=== PATIENT | male | born 1950 | race Caucasian/White ===

== ENCOUNTER 2016-11-16 12:54 | Inpatient (IN) | payer MEDICARE, OTHER ==
[~2016-11-16] VITALS: Ht 165.1 cm; Wt 84.0 kg
[2016-11-16 13:24] LABS: ADD SCAN DIFF NO
[2016-11-16 13:29] LABS: BASOPHILS % 0.2 % (0.0-2.0); EOSINOPHILS # 0.2 10^3/ul (0.0-0.5); EOSINOPHILS % 4.1 % (0.0-7.0); HEMATOCRIT 43.4 % (42.0-52.0); HEMOGLOBIN 15.2 g/dl (14.0-18.0); LYMPHOCYTES # 1.1 10^3/ul (0.8-2.9); LYMPHOCYTES % 24.6 % (15.0-51.0); MEAN CORPUSCULAR HEMOGLOBIN 32.1 pg (29.0-33.0); MEAN CORPUSCULAR VOLUME 91.8 fl (82.0-101.0); MONOCYTE # 0.4 10^3/ul (0.3-0.9); MONOCYTES % 7.8 % (0.0-11.0); NEUTROPHIL # 2.9 10^3/ul (1.6-7.5); NEUTROPHILS % 62.9 % (39.0-77.0); PLATELET COUNT 106 10^3/UL (140-415); RED BLOOD COUNT 4.73 10^6/ul (4.70-6.10); RED CELL DISTRIBUTION WIDTH 13.8 % (11.5-14.5); WHITE BLOOD COUNT 4.6 10^3/ul (4.8-10.8)
[2016-11-16 13:42] LABS: ALBUMIN 3.9 g/dl (3.3-4.9); CHLORIDE 94 mmol/L (97-110); POTASSIUM 4.1 mmol/L (3.5-5.1); SODIUM 130 mmol/L (135-144)
[2016-11-16 13:43] LABS: PARTIAL THROMBOPLASTIN TIME 25.1 Sec (25.0-35.0)
[2016-11-16 13:44] LABS: CREATININE 2.49 mg/dl (0.61-1.24)
[2016-11-16 13:45] LABS: ALANINE AMINOTRANSFERASE 28 IU/L (13-69); ALBUMIN/GLOBULIN RATIO 1.21; ALKALINE PHOSPHATASE 161 IU/L (42-121); ANION GAP 16 (8-16); ASPARTATE AMINO TRANSFERASE 14 IU/L (15-46); BILIRUBIN,INDIRECT 0.7 mg/dl (0-1.1); BILIRUBIN,TOTAL 0.7 mg/dl (0.2-1.3); BLOOD UREA NITROGEN 54 mg/dl (7-20); CARBON DIOXIDE 24 mmol/L (21-31); TOTAL PROTEIN 7.1 g/dl (6.1-8.1)
[2016-11-16 13:46] LABS: CALCIUM 9.7 mg/dl (8.4-10.2)
[2016-11-16 13:47] LABS: INR 1.23; PROTIME 15.6 Sec (12.2-14.2); PT RATIO 1.2
[2016-11-16 13:58] LABS: GLUCOSE 916 mg/dl (70-220); TROPONIN-I < 0.012 ng/ml (0.00-0.12)
[2016-11-16] MEDS ORDERED: SOD CHLORIDE 0.9% 1,000 ML IV STA (14:04)
[2016-11-16] MEDS ORDERED: INSULIN LISPRO 100 UNIT/ML VIAL SC STA (14:04)
--- NOTE | 2016-11-16 14:19 | ERA ---
ER Documentation Chief Complaint Date/Time DATE: 11/16/16 TIME: 14:19 Chief Complaint expressive aphasia x 2days worse over the last 30min HPI History is limited due to the patient's clinical condition and cognitive impairment. 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 Patient complains of a 5 day history of waxing and waning worsening right-sided weakness and difficulty speaking. Staff members told paramedics that he is not speaking normally. Patient denies any headache or visual changes. No neck or back pain. No chest pain or palpitations. No shortness of breath or cough. Denies abdominal pain, nausea vomiting. No dysuria or polyuria. No fevers or chills. ROS All systems reviewed and are negative except as per history of present illness. Medications Home Meds Reported Medications Quetiapine Fumarate* (Quetiapine Fumarate*) 200 Mg Tablet, 200 MG PO HS, TAB 11/16/16 Omeprazole* (Omeprazole*) 20 Mg Capsule.dr, 20 MG PO DAILY, #30 CAP 11/16/16 Levetiracetam* (Keppra*) 500 Mg Tablet, 500 MG PO BID, TAB 11/16/16 Carvedilol* (Carvedilol*) 6.25 Mg Tablet, 6.25 MG PO BID, #60 TAB 11/16/16 Levetiracetam* (Keppra*) 500 Mg Tablet, 500 MG PO BID, TAB 11/16/16 Niacin* (Niacin*) 500 Mg Tablet, 500 MG PO BID, TAB 11/16/16 Zolpidem Tartrate* (Zolpidem Tartrate*) 5 Mg Tablet, 5 MG PO QHS Y for INSOMNIA , #30 TAB 11/16/16 Glipizide* (Glipizide*) 10 Mg Tablet, 10 MG PO BID, TAB 11/16/16 Discontinued Reported Medications Carvedilol* (Carvedilol*) 12.5 Mg Tablet, 12.5 MG PO BID, #60 TAB 11/16/16 Allergies Allergies: Coded Allergies: No Known Allergy (Unverified , 11/16/16) PMhx/Soc Reviewed in chart. As per HPI. Medical and Surgical Hx: Unable to obtain History of Surgery: Yes (Craniotomy) Anesthesia Reaction: No Hx Neurological Disorder: Yes (CVA) Hx Respiratory Disorders: No Hx Cardiac Disorders: Yes (Hypertension) Hx Psychiatric Problems: No Hx Miscellaneous Medical Probl: Yes (GERD, diabetes mellitus type 2) Hx Alcohol Use: Yes Hx Substance Use: No Hx Tobacco Use: No Smoking Status: Never smoker FmHx Unknown. Physical Exam Vitals Vital Signs Date Time Temp Pulse Resp B/P Pulse Ox O2 Delivery O2 Flow Rate FiO2 11/16/16 13:15 Nasal Cannula 2 11/16/16 12:58 98.1 86 20 121/85 94 Physical Exam Const: Alert, no acute distress Head: Atraumatic Eyes: Normal Conjunctiva ENT: Normal External Ears, Nose and Mouth. Neck: Full range of motion..~ No meningismus. Resp: Clear to auscultation bilaterally Cardio: Regular rate and rhythm, no murmurs Abd: Soft, non tender, non distended. Normal bowel sounds Skin: No petechiae or rashes Back: No midline or flank tenderness Ext: No cyanosis, or edema Neur: Awake and alert. Mild right facial droop. Tongue deviates to the right. Right upper extremity strength 4/5, right lower extremity strength 4/5. Mild slurred speech with expressive aphasia. Psych: Normal Mood and Affect Result Diagram: 11/16/16 1315 11/16/16 1315 Results 24 hrs Laboratory Tests Test 11/16/16 13:15 11/16/16 13:20 11/16/16 14:44 White Blood Count 4.610^3/ul Red Blood Count 4.7310^6/ul Hemoglobin 15.2g/dl Hematocrit 43.4% Mean Corpuscular Volume 91.8fl Mean Corpuscular Hemoglobin 32.1pg Mean Corpuscular Hemoglobin Concent 35.0g/dl Red Cell Distribution Width 13.8% Platelet Count 71290^3/UL Mean Platelet Volume 10.0fl Neutrophils % 62.9% Lymphocytes % 24.6% Monocytes % 7.8% Eosinophils % 4.1% Basophils % 0.2% Nucleated Red Blood Cells % 0.0/100WBC Neutrophils # 2.910^3/ul Lymphocytes # 1.110^3/ul Monocytes # 0.410^3/ul Eosinophils # 0.210^3/ul Basophils # 0.010^3/ul Nucleated Red Blood Cells # 0.010^3/ul Prothrombin Time 15.6Sec Prothrombin Time Ratio 1.2 INR International Normalized Ratio 1.23 Activated Partial Thromboplast Time 25.1Sec Sodium Level 130mmol/L Potassium Level 4.1mmol/L Chloride Level 94mmol/L Carbon Dioxide Level 24mmol/L Anion Gap 16 Blood Urea Nitrogen 54mg/dl Creatinine 2.49mg/dl Glucose Level 916mg/dl Hemoglobin A1c 10.2% Calcium Level 9.7mg/dl Total Bilirubin 0.7mg/dl Direct Bilirubin 0.00mg/dl Indirect Bilirubin 0.7mg/dl Aspartate Amino Transf (AST/SGOT) 14IU/L Alanine Aminotransferase (ALT/SGPT) 28IU/L Alkaline Phosphatase 161IU/L Troponin I < 0.012ng/ml Total Protein 7.1g/dl Albumin 3.9g/dl Globulin 3.20g/dl Albumin/Globulin Ratio 1.21 Bedside Glucose > 595mg/dL > 595mg/dL Current Medications Medications (Trade) Dose Ordered Sig/Steve Route PRN Reason Start Time Stop Time Status Last Admin Dose Admin Sodium Chloride (NS) 1,000 ml @ 1,000 mls/hr Q1H STAT IV 11/16/16 14:04 11/16/16 15:03 11/16/16 14:36 Insulin Human Lispro (Humalog) 10 unit ONCE STAT SC 11/16/16 14:04 11/16/16 14:21 DC Miscellaneous Information (* Miscellaneous Pharmacy Order) Discontinue all previ... PROTOCOL ONCE XX 11/16/16 14:30 11/16/16 14:31 DC Diagnostic Test (Pha) 1 ea 1 ea Q1H XX 11/16/16 14:30 Insulin Human Regular/Sodium Chloride (Novolin-R/NS) 100 ml @ 0 mls/hr PER PROTOCOL IV 11/16/16 14:30 Miscellaneous Information (* Miscellaneous Pharmacy Order) Treatment of Hypoglycemia: 1.BG 51... Per protocol XX 11/16/16 14:30 Dextrose (D50w Syringe) 25 ml Q15M PRN IV Till BS 80 mg/dL or above x2 11/16/16 14:30 Dextrose (D50w Syringe) 50 ml Q15M PRN IV Till BS 80 mg/dL or above x2 11/16/16 14:30 PROCEDURE: Noncontrast CT Head. CLINICAL INDICATION: Stroke. TECHNIQUE: Noncontrast CT of the head was obtained. The administered radiation dose was CTDI vol = 44.68 mGy, DLP = 720.23 mGy-cm. One or more of the following dose reduction techniques were used: Automated exposure control, Adjustment of the mA and/or kV according to patient size, or Use of iterative reconstruction technique. COMPARISON: There are no similar studies submitted for comparison. FINDINGS: Evaluation is mildly limited due to motion degradation. There is a left frontal pterional craniotomy. There is a 4 mm left frontal subdural fluid collection with dural thickening which is likely postoperative. There is mild generalized cerebral volume loss. There is mild cerebellar volume loss. There is left inferior as well as lateral frontal encephalomalacia with subcortical gliosis as well as involves the left anterior insula. There is no acute intracranial hemorrhage. There is no loss of devine-white differentiation to suggest acute territorial infarction. There is no mass effect. No midline shift is identified. The orbits are within normal limits. The paranasal sinuses are well aerated. No destructive osseous lesion is identified. IMPRESSION: Evaluation is mildly limited due to motion degradation. 1. No acute intracranial hemorrhage. 2. Mild cerebral and mild cerebellar volume loss. 3. Left frontal pterional craniotomy with left dural thickening. There is a 4 mm left frontal subdural fluid collection which is likely postoperative. 4. Left inferior frontal and left lateral frontal encephalomalacia involving the left anterior insula. Further findings as detailed above. RPTAT: AA .Abdirahman Moser MD, Date Time Electronically viewed and signed by .Abdirahman Moser MD, on 11/16/2016 14:42 .F/ PROCEDURE: Chest x-ray CLINICAL INDICATION: Stroke TECHNIQUE: Chest single view COMPARISON: None FINDINGS: The heart is normal in size. The pulmonary vessels are normal in caliber. The lungs are clear. The costophrenic angles are sharp. The visualized bony thorax is unremarkable. IMPRESSION: No acute cardiopulmonary disease. RPTAT: HH .Ryder Sharp MD, MD Date Time Electronically viewed and signed by .Ryder Sharp MD, MD on 11/16/2016 14:22 .W/ EKG: TIME: 13:23. Sinus rhythm. Ventricular rate 81. Normal VT and QRS. Nonspecific ST-T wave changes. No ectopy. EP Interpretation: Abnormal EKG. 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 Patient complains of a 5 day history of waxing and waning worsening right-sided weakness and difficulty speaking. Patient with critical hyperglycemia and hyperosmolar nonketotic state. No acidosis, anion gap or other signs of diabetic ketoacidosis. CT reveals no acute bleed or infarct of the lives no old CT for comparison. Counseled [patient and family] regarding diagnosis, diagnostic results and plan for admission. CALLS/CONSULTS: Time 14:24, Dr. Maya, Recommends Admission to ICU. PATIENT CARE TRANSITIONED: Time: 14:25, Dr. Maya. CRITICAL CARE TIME: Due to the high probability of sudden clinically significant hemodynamic, cardiovascular, neurologic and endocrinologic deterioration, this patient with hyperglycemia and HONK required multiple, frequent reevaluations of vital signs and response to therapy. Additional critical care time was spent in review of skilled nurse facility records and consultation with the admitting physician Dr. Maya. TOTAL CRITICAL CARE TIME: 35 minutes not including other separately reportable procedures. Departure Diagnosis: Primary Impression: Hyperglycemia due to type 2 diabetes mellitus Qualified Code: E11.65 - Type 2 diabetes mellitus with hyperglycemia, without long-term current use of insulin Additional Impressions: Hyperosmolar non-ketotic state in patient with type 2 diabetes mellitus Acute renal insufficiency Essential hypertension History of craniotomy History of CVA with residual deficit Condition: Critical ANTONIO VIGIL MD Nov 16, 2016 14:19
--- NOTE | 2016-11-16 14:22 | RADRPT ---
PROCEDURE: Chest x-ray CLINICAL INDICATION: Stroke TECHNIQUE: Chest single view COMPARISON: None FINDINGS: The heart is normal in size. The pulmonary vessels are normal in caliber. The lungs are clear. Th e costophrenic angles are sharp. The visualized bony thorax is unremarkable. IMPRESSION: No acute cardiopulmonary disease. RPTAT: HH .Ryder Sharp MD, MD Date Time Electronically viewed and signed by .Ryder Sharp MD, MD on 11/16/2016 14:22 .W/
[2016-11-16] MEDS ORDERED: GLIP-95 PO (14:25)
[2016-11-16] MEDS ORDERED: ZOLP5TAB7 PO (14:26)
[2016-11-16] MEDS ORDERED: LEVE-5 PO ×2 (14:27→14:28)
[2016-11-16] MEDS ORDERED: CARV12.579 PO (14:27)
[2016-11-16] MEDS ORDERED: NIAC500T81 PO (14:27)
[2016-11-16] MEDS ORDERED: CARV6.2579 PO (14:28)
[2016-11-16] MEDS ORDERED: OMEP20CA16 PO (14:28)
[2016-11-16] MEDS ORDERED: INSULIN HUMAN REGULAR 100 UNIT in SOD CHLORIDE 0.9% 99 ML IV SCH ×3 (14:30→21:00)
[2016-11-16] MEDS ORDERED: DEXTROSE 50% 50 ML SYRINGE IV PRN ×2 (14:30)
[2016-11-16] MEDS ORDERED: QUET200T27 PO (14:33)
--- NOTE | 2016-11-16 14:43 | RADRPT ---
PROCEDURE: Noncontrast CT Head. CLINICAL INDICATION: Stroke. TECHNIQUE: Noncontrast CT of the head was obtained. The administered radiation dose was CTDI vol = 44.68 mGy, DLP = 720.23 mGy-cm. One or more of the following dose reduction techniques were used: Au tomated exposure control, Adjustment of the mA and/or kV according to patient size, or Use of iterat hong reconstruction technique. COMPARISON: There are no similar studies submitted for comparison. FINDINGS: Evaluation is mildly limited due to motion degradation. There is a left frontal pterional craniotomy. There is a 4 mm left frontal subdural fluid collection with dural thickening which is likely postoperative. There is mild generalized cerebral volume loss. There is mild cerebellar volume loss. There is left inferior as well as lateral frontal encephalomalacia with subcortical gliosis as well as involves the left anterior insula. There is no acute intracranial hemorrhage. There is no loss of devine-white differentiation to suggest acute territorial infarction. There is no mass effect. No midline shift is identified. The orbits are within normal limits. The paranasal sinuses are well aerated. No destructive osseous lesion is identified. IMPRESSION: Evaluation is mildly limited due to motion degradation. 1. No acute intracranial hemorrhage. 2. Mild cerebral and mild cerebellar volume loss. 3. Left frontal pterional craniotomy with left dural thickening. There is a 4 mm left frontal subdu ral fluid collection which is likely postoperative. 4. Left inferior frontal and left lateral frontal encephalomalacia involving the left anterior insul a. Further findings as detailed above. RPTAT: AA .Abdirahman Moser MD, MD Date Time Electronically viewed and signed by .Abdirahman Moser MD, on 11/16/2016 14:42 .F/
[2016-11-16] MEDS ORDERED: ZOLPIDEM 5 MG TAB PO PRN (15:00)
--- NOTE | 2016-11-16 15:04 | HP ---
Date/Time of Note Date/Time of Note DATE: 11/16/16 TIME: 14:55 Assessment/Plan VTE Prophylaxis VTE Prophylaxis Intervention: heparin Assessment/Plan Assessment/Plan 66 yo M sent from an assisted living home for concerns of worsened slurring of speech managed for 1. Hyperosmolar non ketotic hyperglycemic state likely causing #2 2. Mildly worsened encephalopathy 3. Previous severe CVA with expressive aphasia at baseline 4. s/p RBKA 5. DM 2 (Diet controlled -per patient) 6. Chronic Seizure d/o 7. Chronic dyslipidemia 8. Chronic depression 9. JESUSITA r/o CKD PLAN: * ICU admit for insulin drip and aggressive fluid hydration * Serial BMP and mag levels * Continue home meds * NPO for now except meds * supportive care Prophylaxis: lovenox/ pepcid HPI/ROS Admit Date/Time Admit Date/Time 11/16/16 Hx of Present Illness PRESENTING COMPLAINT: worsened slurred speech HISTORY OF PRESENTING COMPLAINT: This is 66-year-old male with a history of diabetes mellitus type 2, hypertension, seizures, GERD, CVA with right-sided deficit of previous craniotomy brought to the ED via ambulance from [facility] for worsening right-sided weakness and difficulty speaking. Staff members told paramedics that he is not speaking normally. Patient denies any headache or visual changes. No neck or back pain. No chest pain or palpitations. No shortness of breath or cough. Denies abdominal pain, nausea vomiting. No dysuria or polyuria. No fevers or chills. Patient was also found to be significantly hyperglycemic in ER. Patient is quite aphasic and while he can communicate slightly is unable to give a detailed history. ROS Expressive aphasia. PMH/Family/Social Past Medical History Medical History: diabetes, high cholesterol, hypertension Past Surgical History * R AKA Family History Significant Family History: diabetes Social History Alcohol Use: occasionally Smoking Status: Never smoker Drug Use: none Exam/Review of Systems Vital Signs Vitals VS - Last 72 Hours, by Label Date Time Temp Pulse Resp B/P Pulse Ox O2 Delivery O2 Flow Rate FiO2 11/16/16 13:15 Nasal Cannula 2 11/16/16 12:58 98.1 86 20 121/85 94 Vital Signs Date Time Temp Pulse Resp B/P Pulse Ox O2 Delivery O2 Flow Rate FiO2 11/16/16 13:15 Nasal Cannula 2 11/16/16 12:58 98.1 86 20 121/85 94 Exam Exam GENERAL: Patient is alert, oriented x 3, in no apparent distress; does not appear acutely or chronically ill. Patient is able to sit up unassisted.Patient makes good eye contact, is conversant, interactive, coherent. Patient appears calm and comfortable and is able to follow commands. HEENT: Oropharynx is clear. There is no carotid bruit, no masses. Patient's pupils are equal, round and reactive to light bilaterally. Extraocular motions are intact. There is no scleral icterus. There is no facial asymmetry. NECK: Supple. LUNGS: Clear to auscultation bilaterally with good air entry. No Wheezes or crackles. HEART: S1, S2. No murmur, gallops or rubs. Regular rate and rhythm. ABDOMEN: Soft, nontender. Normoactive bowel sounds. There are no stigmata of chronic liver disease. BACK: no costovertebral angle tenderness. GENITOURINARY: Deferred. EXTREMITIES: No edema. There is no cyanosis, clubbing. There are 2+ pulses in both radial arteries, R sided AKA NEUROLOGIC: The patient has no lateralizing signs. Cranial nerves II-XII are intact. SKIN: Otherwise, unremarkable. Labs Result Diagram: 11/16/16 1315 11/16/16 1315 Medications Medications Current Medications Diagnostic Test (Pha) (Accu-Chek) 1 ea Q1H XX ; Start 11/16/16 at 14:30 Dextrose (D50w Syringe) 25 ml Q15M PRN IV Till BS 80 mg/dL or above x2; Start 11/16/16 at 14:30 Dextrose (D50w Syringe) 50 ml Q15M PRN IV Till BS 80 mg/dL or above x2; Start 11/16/16 at 14:30 Procedures Procedures Laboratory Tests Test 11/16/16 13:15 11/16/16 13:20 11/16/16 14:44 White Blood Count 4.610^3/ul Red Blood Count 4.7310^6/ul Hemoglobin 15.2g/dl Hematocrit 43.4% Mean Corpuscular Volume 91.8fl Mean Corpuscular Hemoglobin 32.1pg Mean Corpuscular Hemoglobin Concent 35.0g/dl Red Cell Distribution Width 13.8% Platelet Count 94390^3/UL Mean Platelet Volume 10.0fl Neutrophils % 62.9% Lymphocytes % 24.6% Monocytes % 7.8% Eosinophils % 4.1% Basophils % 0.2% Nucleated Red Blood Cells % 0.0/100WBC Neutrophils # 2.910^3/ul Lymphocytes # 1.110^3/ul Monocytes # 0.410^3/ul Eosinophils # 0.210^3/ul Basophils # 0.010^3/ul Nucleated Red Blood Cells # 0.010^3/ul Prothrombin Time 15.6Sec Prothrombin Time Ratio 1.2 INR International Normalized Ratio 1.23 Activated Partial Thromboplast Time 25.1Sec Sodium Level 130mmol/L Potassium Level 4.1mmol/L Chloride Level 94mmol/L Carbon Dioxide Level 24mmol/L Anion Gap 16 Blood Urea Nitrogen 54mg/dl Creatinine 2.49mg/dl Glucose Level 916mg/dl Hemoglobin A1c 10.2% Calcium Level 9.7mg/dl Total Bilirubin 0.7mg/dl Direct Bilirubin 0.00mg/dl Indirect Bilirubin 0.7mg/dl Aspartate Amino Transf (AST/SGOT) 14IU/L Alanine Aminotransferase (ALT/SGPT) 28IU/L Alkaline Phosphatase 161IU/L Troponin I < 0.012ng/ml Total Protein 7.1g/dl Albumin 3.9g/dl Globulin 3.20g/dl Albumin/Globulin Ratio 1.21 Bedside Glucose > 595mg/dL > 595mg/dL Current Medications Medications (Trade) Dose Ordered Sig/Steve Route PRN Reason Start Time Stop Time Status Last Admin Dose Admin Sodium Chloride (NS) 1,000 ml @ 1,000 mls/hr Q1H STAT IV 11/16/16 14:04 11/16/16 15:03 11/16/16 14:36 1,000 MLS/HR Insulin Human Lispro (Humalog) 10 unit ONCE STAT SC 11/16/16 14:04 11/16/16 14:21 DC Miscellaneous Information (* Miscellaneous Pharmacy Order) Discontinue all previ... PROTOCOL ONCE XX 11/16/16 14:30 11/16/16 14:31 DC Diagnostic Test (Pha) 1 ea 1 ea Q1H XX 11/16/16 14:30 Insulin Human Regular/Sodium Chloride (Novolin-R/NS) 100 ml @ 0 mls/hr PER PROTOCOL IV 11/16/16 14:30 Miscellaneous Information (* Miscellaneous Pharmacy Order) Treatment of Hypoglycemia: 1.BG 51... Per protocol XX 11/16/16 14:30 Dextrose (D50w Syringe) 25 ml Q15M PRN IV Till BS 80 mg/dL or above x2 11/16/16 14:30 Dextrose (D50w Syringe) 50 ml Q15M PRN IV Till BS 80 mg/dL or above x2 11/16/16 14:30 PROCEDURE: Chest x-ray CLINICAL INDICATION: Stroke TECHNIQUE: Chest single view COMPARISON: None FINDINGS: The heart is normal in size. The pulmonary vessels are normal in caliber. The lungs are clear. The costophrenic angles are sharp. The visualized bony thorax is unremarkable. IMPRESSION: No acute cardiopulmonary disease. RPTAT: HH .Ryder Sharp MD, MD Date Time Electronically viewed and signed by .Ryder Sharp MD, MD on 11/16/2016 14:22 .W/ CC: ANTONIO VIGIL MD I reviewed EKG Rate: Within normal limits Rhythm: sinus Note: No ST elevation or depressions noted concerning for acute ischemic event. AMBREEN GELLER Nov 16, 2016 15:04
[2016-11-16] MEDS: ACCU-CHEK XX SCH ×12 (15:15→22:50)
[2016-11-16] MEDS ORDERED: SOD CHLORIDE 0.9% 1,000 ML IV ONE (15:30)
[2016-11-16] MEDS: SOD CHLORIDE 0.9% 1,000 ML IV SCH (15:59)
--- NOTE | 2016-11-16 16:39 | RADRPT ---
PROCEDURE: Carotid ultrasound CLINICAL INDICATION: Possible stroke, carotid bruits TECHNIQUE: Paulino scale, color doppler, spectral doppler ultrasound of the bilateral carotid and morena tebral arteries. This study indirectly references the measurement of the distal ICA diameter as the denominator for s tenosis measurement. Validated velocity measurements with angiographic measurements, velocity criter ia are extrapolated from diameter data as defined by: *Cartoid artery stenosis: paulino-scale and Doppl er US diagnosis. Society of Radiologists in Ultrasound Consensus Conference. Radiology 2003; 229: 34 0-346. SRU Consensus Conference Criteria for the Diagnosis of Carotid Artery Stenosis* Degree of Stenosis, % ICA PSV, cm/sec Plaque Estimate, % ICA/CCA PSV Ratio Normal <125 None <2.0 <50 <125 <50 <2.0 50 69 125-230 >50 2.0-4.0 >70 but less than near occlusion >230 >50 <4.0 Near occlusion High, low, or undetectable Visible Variable Total occlusion Undetectable Visible, no detectable lumen Not applicable COMPARISON: No prior studies are available for comparison. FINDINGS: Location Right CCA56 cm/sec Prox ICA 33 cm/sec Mid ICA40 cm/sec Dist ICA38 cm/sec ECA69 cm/sec ICA/CCA0.7 Left CCA56 cm/sec Prox ICA 33 cm/sec Mid ICA43 cm/sec Dist ICA43 cm/sec ECA48 cm/sec ICA/CCA0.8 Plaque burden: A minimal amount of plaque is present within the visualized portions of both internal carotid arteries however there is no evidence of flow acceleration to suggest a hemodynamically sig nificant stenosis. Antegrade flow is seen within the vertebral arteries bilaterally. IMPRESSION: A minimal amount of plaque is present within the visualized portions of both internal carotid arteri es however there is no evidence of flow acceleration to suggest a hemodynamically significant stenos is. RPTAT: AADD .Tanner Sue MD, Date Time Electronically viewed and signed by .Tanner Sue MD, on 11/16/2016 16:39 .B/
[2016-11-16 19:32] LABS: ADD UMIC YES; URINE BILIRUBIN (Dip) NEGATIVE (NEGATIVE); URINE BLOOD (Dip) TRACE (NEGATIVE); URINE COLOR LT. YELLOW (YELLOW); URINE GLUCOSE (Dip) >=1000 % (NEGATIVE); URINE KETONES (Dip) NEGATIVE (NEGATIVE); URINE LEUKOCYTE ESTERASE (Dip) NEGATIVE (NEGATIVE); URINE NITRITE (Dip) NEGATIVE (NEGATIVE); URINE TOTAL PROTEIN (Dip) TRACE (NEGATIVE); URINE UROBILINOGEN (Dip) 1.0 E.U./dL (0.1-1.0)
[2016-11-16 19:40] LABS: CREATININE 2.17 mg/dl (0.61-1.24)
[2016-11-16 19:41] LABS: CALCIUM 9.8 mg/dl (8.4-10.2); MAGNESIUM 2.3 mg/dl (1.7-2.5)
[2016-11-16 19:47] LABS: BARBITURATES Negative (NEGATIVE)
[2016-11-16 19:48] LABS: BENZODIAZEPINES Negative (NEGATIVE)
[2016-11-16 19:52] LABS: CANNABINOIDS Negative (NEGATIVE); COCAINE Negative (NEGATIVE); OPIATES Negative (NEGATIVE)
[2016-11-16] MEDS ORDERED: DEXTROSE 5%-0.45% NACL 1,000 ML IV SCH (20:25)
[2016-11-16 20:28] LABS: BACTERIA,URINE FEW; SQUAMOUS EPITHELIAL CELL,UR FEW; URINE RBCS 0-2 /HPF (0)
[2016-11-16] MEDS: LEVETIRACETAM 500 MG TAB PO SCH (20:51)
[2016-11-16] MEDS: FAMOTIDINE 20 MG INJ IV SCH (20:51)
[2016-11-16] MEDS: QUETIAPINE 100 MG TAB PO SCH (20:51)
[2016-11-16] MEDS: NIACIN 500 MG TAB PO SCH (21:04)
[2016-11-17 00:01] LABS: POTASSIUM 4.2 mmol/L (3.5-5.1)
[2016-11-17 00:03] LABS: CREATININE 1.87 mg/dl (0.61-1.24)
[2016-11-17 00:04] LABS: CALCIUM 9.8 mg/dl (8.4-10.2)
[2016-11-17] MEDS: ACCU-CHEK XX SCH ×27 (00:10→20:08)
[2016-11-17] MEDS: SOD CHLORIDE 0.9% 1,000 ML IV SCH ×4 (01:38→16:37)
[2016-11-17 05:59] LABS: ADD SCAN DIFF NO
[2016-11-17 06:24] LABS: CALCIUM 9.5 mg/dl (8.4-10.2); CHOL/HDL RATIO 3.1 RATIO; CREATININE 1.78 mg/dl (0.61-1.24); POTASSIUM 4.2 mmol/L (3.5-5.1)
[2016-11-17 06:53] LABS: THYROID STIMULATING HORMONE 0.342 MIU/L (0.465-4.680)
[2016-11-17 07:03] LABS: BASOPHILS % 0.4 % (0.0-2.0); EOSINOPHILS # 0.3 10^3/ul (0.0-0.5); EOSINOPHILS % 6.2 % (0.0-7.0); HEMATOCRIT 41.8 % (42.0-52.0); HEMOGLOBIN 14.8 g/dl (14.0-18.0); LYMPHOCYTES # 1.9 10^3/ul (0.8-2.9); MEAN CORPUSCULAR HEMOGLOBIN 32.7 pg (29.0-33.0); MEAN CORPUSCULAR HGB CONC 35.4 g/dl (32.0-37.0); MEAN CORPUSCULAR VOLUME 92.5 fl (82.0-101.0); MEAN PLATELET VOLUME 10.1 fl (7.4-10.4); MONOCYTE # 0.3 10^3/ul (0.3-0.9); NEUTROPHIL # 2.5 10^3/ul (1.6-7.5); NEUTROPHILS % 49.6 % (39.0-77.0); PLATELET COUNT 107 10^3/UL (140-415); RED BLOOD COUNT 4.52 10^6/ul (4.70-6.10); RED CELL DISTRIBUTION WIDTH 14.1 % (11.5-14.5)
[2016-11-17] MEDS ORDERED: INSULIN GLARGINE [LANtus] 3 ML PEN SC ONE (09:00)
[2016-11-17] MEDS ORDERED: LACTATED RINGER'S 500 ML IV ONE (09:00)
[2016-11-17] MEDS ORDERED: LACTULOSE 30ML CUP PO ONE (09:00)
--- NOTE | 2016-11-17 09:00 | PN ---
Date/Time of Note Date/Time of Note DATE: 11/17/16 TIME: 08:56 Assessment/Plan VTE Prophylaxis VTE Prophylaxis Intervention: LMWH Assessment/Plan Problems: (1) Constipation Status: Acute Comment: We will treat him here with the idea of getting this taken care of. Please note that this gentleman is a [facility] system patient Qualifiers: Constipation type: drug induced constipation Qualified Code: K59.03 - Drug -induced constipation (2) Hyperosmolar non-ketotic state in patient with type 2 diabetes mellitus Status: Acute Comment: With the insulin drip he is from where he resolved nicely. His sugars have come down. He is still somewhat dehydrated I will give him a fluid bolus to help correct for that and get him back on his regular medications. Please note that the medication list we were given for the patient is incomplete (3) Diabetes mellitus type 2 in nonobese Status: Chronic Comment: Continue with oral agents and insulin based protocol (4) History of CVA with residual deficit Status: Acute Comment: Noted. He is stable with no new events (5) Acute renal insufficiency Status: Acute Comment: Improving nicely. Resume his medication one more fluid bolus (6) Essential hypertension Status: Chronic Comment: Noted. If his blood pressure rises will be giving him an A2 receptor jared drug (7) Seizure disorder as sequela of cerebrovascular accident Status: Chronic Comment: Continue his medications no activity (8) Mixed hyperlipidemia due to type 2 diabetes mellitus Status: Chronic Comment: Continue treatment. Please do not rallies fish oil the niacin as the niacin has a degratative effect on his sugars (9) Gastroesophageal reflux disease Status: Chronic Comment: noted Qualifiers: Esophagitis presence: without esophagitis Qualified Code: K21.9 - Gastroesophageal reflux disease without esophagitis Subjective 24 Hr Interval Summary Free Text/Dictation Pleasant male with complaints of constipation. Reports otherwise he is feeling better. Constitutional: no complaints (Denies fevers chills or sweats) Eyes: no complaints Respiratory: no complaints Cardiovascular: no complaints Gastrointestinal: constipation Genitourinary: no complaints Musculoskeletal: no complaints Neurologic: no complaints Exam/Review of Systems Vital Signs Vitals Vital Signs Date Time Temp Pulse Resp B/P Pulse Ox O2 Delivery O2 Flow Rate FiO2 11/17/16 06:19 11 111/85 96 11/17/16 04:00 97 11/16/16 21:06 Room Air 11/16/16 13:15 2 11/16/16 12:58 98.1 Intake and Output 11/16/16 11/16/16 11/17/16 15:00 23:00 07:00 Output Total 500 ml Balance -500 ml Exam Constitutional: alert, oriented Head: other (Status post craniotomy) Eyes: EOMI, nl conjunctiva, nl lids, nl sclera Respiratory: clear to auscultation, normal air movement Cardiovascular: nl pulses, regular rate and rhythm Gastrointestinal: nl liver, spleen, non-tender, soft Extremities: normal pulses Results Result Diagram: 11/17/16 0545 11/17/16 0545 Results 24 hrs Laboratory Tests Test 11/16/16 13:15 11/16/16 13:20 11/16/16 14:44 11/16/16 15:00 White Blood Count 4.6 L Red Blood Count 4.73 Hemoglobin 15.2 Hematocrit 43.4 Mean Corpuscular Volume 91.8 Mean Corpuscular Hemoglobin 32.1 Mean Corpuscular Hemoglobin Concent 35.0 Red Cell Distribution Width 13.8 Platelet Count 106 L Mean Platelet Volume 10.0 Neutrophils % 62.9 Lymphocytes % 24.6 Monocytes % 7.8 Eosinophils % 4.1 Basophils % 0.2 Nucleated Red Blood Cells % 0.0 Neutrophils # 2.9 Lymphocytes # 1.1 Monocytes # 0.4 Eosinophils # 0.2 Basophils # 0.0 Nucleated Red Blood Cells # 0.0 Prothrombin Time 15.6 H Prothrombin Time Ratio 1.2 INR International Normalized Ratio 1.23 Activated Partial Thromboplast Time 25.1 Sodium Level 130 L Potassium Level 4.1 Chloride Level 94 L Carbon Dioxide Level 24 Anion Gap 16 Blood Urea Nitrogen 54 H Creatinine 2.49 H Glucose Level 916 *H 779 *H Hemoglobin A1c 10.2 H Osmolality 337 H Calcium Level 9.7 Total Bilirubin 0.7 Direct Bilirubin 0.00 Indirect Bilirubin 0.7 Aspartate Amino Transf (AST/SGOT) 14 L Alanine Aminotransferase (ALT/SGPT) 28 Alkaline Phosphatase 161 H Troponin I < 0.012 Total Protein 7.1 Albumin 3.9 Globulin 3.20 Albumin/Globulin Ratio 1.21 Bedside Glucose > 595 *H > 595 *H Test 11/16/16 17:00 11/16/16 17:27 11/16/16 19:00 11/16/16 19:02 Bedside Glucose 591 *H 559 *H 509 *H Urine Color LT. YELLOW Urine Clarity CLEAR Urine pH 6.0 Urine Specific Cascade <=1.005 L Urine Ketones NEGATIVE Urine Nitrite NEGATIVE Urine Bilirubin NEGATIVE Urine Urobilinogen 1.0 E.U./dL Urine Leukocyte Esterase NEGATIVE Urine Microscopic RBC 0-2 Urine Microscopic WBC 5-10 Urine Squamous Epithelial Cells FEW Urine Bacteria FEW Urine Hemoglobin TRACE Urine Glucose >=1000 Urine Total Protein TRACE Sodium Level 140 Potassium Level 4.0 Chloride Level 103 Carbon Dioxide Level 26 Anion Gap 15 Blood Urea Nitrogen 50 H Creatinine 2.17 H Glucose Level 506 #*H Calcium Level 9.8 Magnesium Level 2.3 Urine Opiates Screen Negative Urine Barbiturates Negative Urine Amphetamines Screen Negative Urine Benzodiazepines Screen Negative Urine Cocaine Screen Negative Urine Cannabinoids Negative Test 11/16/16 19:48 11/16/16 20:47 11/16/16 22:10 11/16/16 23:12 Bedside Glucose 414 *H 355 H 292 H 265 H Test 11/16/16 23:30 11/17/16 00:05 11/17/16 01:42 11/17/16 03:02 Sodium Level 142 Potassium Level 4.2 Chloride Level 106 Carbon Dioxide Level 26 Anion Gap 14 Blood Urea Nitrogen 48 H Creatinine 1.87 H Glucose Level 292 #H Calcium Level 9.8 Bedside Glucose 266 H 239 H 226 H Test 11/17/16 04:47 11/17/16 05:45 11/17/16 06:14 11/17/16 07:35 Bedside Glucose 201 203 199 White Blood Count 5.0 Red Blood Count 4.52 L Hemoglobin 14.8 Hematocrit 41.8 L Mean Corpuscular Volume 92.5 Mean Corpuscular Hemoglobin 32.7 Mean Corpuscular Hemoglobin Concent 35.4 Red Cell Distribution Width 14.1 Platelet Count 107 L Mean Platelet Volume 10.1 Neutrophils % 49.6 Lymphocytes % 37.0 Monocytes % 6.0 Eosinophils % 6.2 Basophils % 0.4 Nucleated Red Blood Cells % 0.0 Neutrophils # 2.5 Lymphocytes # 1.9 Monocytes # 0.3 Eosinophils # 0.3 Basophils # 0.0 Nucleated Red Blood Cells # 0.0 Sodium Level 144 Potassium Level 4.2 Chloride Level 113 H Carbon Dioxide Level 26 Anion Gap 9 # Blood Urea Nitrogen 42 H Creatinine 1.78 H Glucose Level 230 H Calcium Level 9.5 Triglycerides Level 206 H Cholesterol Level 100 LDL Cholesterol, Calculated 27 HDL Cholesterol 32 Cholesterol/HDL Ratio 3.1 Thyroid Stimulating Hormone (TSH) 0.342 L Medications Medications Current Medications Diagnostic Test (Pha) (Accu-Chek) 1 ea Q1H XX Last administered on 11/17/16 06 :18; Admin Dose 1 EA; Start 11/16/16 at 14:30 Dextrose (D50w Syringe) 25 ml Q15M PRN IV Till BS 80 mg/dL or above x2; Start 11/16/16 at 14:30 Dextrose (D50w Syringe) 50 ml Q15M PRN IV Till BS 80 mg/dL or above x2; Start 11/16/16 at 14:30 Carvedilol (Coreg) 6.25 mg BID PO Last administered on 11/16/16 20:54; Admin Dose 6.25 MG; Start 11/16/16 at 21:00 Levetiracetam (Keppra) 500 mg BID PO Last administered on 11/16/16 20:51; Admin Dose 500 MG; Start 11/16/16 at 21:00 Niacin (Niacin) 500 mg BID PO Last administered on 11/16/16 21:04; Admin Dose 500 MG; Start 11/16/16 at 21:00 Quetiapine Fumarate (Seroquel) 200 mg HS PO Last administered on 11/16/16 20: 51; Admin Dose 200 MG; Start 11/16/16 at 21:00 Zolpidem Tartrate (Ambien) 5 mg QHS PRN PO INSOMNIA; Start 11/16/16 at 15:00 Famotidine 20 mg 20 mg HS IV Last administered on 11/16/16 20:51; Admin Dose 20 MG; Start 11/16/16 at 21:00 Sodium Chloride (NS) 1,000 ml @ 175 mls/hr Q5H43M IV Last administered on 11/17 01:38; Admin Dose 175 MLS/HR; Start 11/16/16 at 15:30 Diagnostic Test (Pha) (Accu-Chek) 1 ea Q1H XX Last administered on 11/17/16 07 :30; Admin Dose 1 EA; Start 11/16/16 at 20:30 Enoxaparin Sodium 30 mg 30 mg DAILY SC ; Start 11/17/16 at 09:00 Lactated Ringer's (Lr) 500 ml @ 500 mls/hr Q1H ONCE IV ; Start 11/17/16 at 09: 00; Stop 11/17/16 at 09:59; Status UNV Linagliptin (Tradjenta) 5 mg DAILY PO ; Start 11/17/16 at 09:00; Status UNV Sodium Biphosphate/ Sodium Phosphate (Fleet Enema) 133 ml ONCE ONCE WA ; Start 11/17/16 at 09:00; Stop 11/17/16 at 09:01; Status UNV Lactulose (Enulose) 20 gm ONCE ONCE PO ; Start 11/17/16 at 09:00; Stop at 09:01; Status UNV Fish Oil (Fish Oil) 2,000 mg BID PO ; Start 11/17/16 at 09:00; Status UNV Insulin Glargine (Lantus) 14 unit ONCE ONCE SC ; Start 11/17/16 at 09:00; Stop 11/17/16 at 09:01; Status UNV BRYAN LOPEZ MD Nov 17, 2016 09:00
[2016-11-17] MEDS: LINAGLIPTIN 5 MG TABLET PO SCH (09:35)
[2016-11-17] MEDS: FISH OIL 1,000 MG CAP PO SCH ×3 (09:35→21:26)
[2016-11-17] MEDS: ENOXAPARIN 30 MG/0.3 ML SYG SC SCH (09:36)
[2016-11-17] MEDS: LEVETIRACETAM 500 MG TAB PO SCH ×2 (10:22→21:26)
[2016-11-17] MEDS: NIACIN 500 MG TAB PO SCH ×2 (10:22→21:00)
[2016-11-17] MEDS: NA PHOSPHATE/BIPHOS 133 ML ENEMA PR ONE ×2 (10:27→14:32)
[2016-11-17 12:10] VITALS: BP 140/80; PULSE 78; RESP 18
[2016-11-17 12:30] VITALS: Ht 165.1 cm; Wt 84.0 kg
[2016-11-17] MEDS ORDERED: DEXTROSE 50% 50 ML SYRINGE IV PRN ×2 (14:30)
[2016-11-17] MEDS ORDERED: GLUCOSE GEL 15 GRAM TUBE PO PRN ×2 (14:30)
[2016-11-17] MEDS ORDERED: GLUCAGON 1 MG INJ IM PRN (14:30)
[2016-11-17] MEDS ORDERED: GLUCOSE GEL 15 GRAM TUBE BUCCAL PRN (14:30)
--- NOTE | 2016-11-17 16:13 | RADRPT ---
Echocardiogram Report Patient Name: PENG WEAVER Gender: Male Date: 1950 Study Date: 17-Nov-2016 [employer] Plant Operator: [facility] Location: [facility] Ref. Physician: AMBREEN GELLER Quality: Good Procedures: Transthoracic echocardiogram with complete 2D, M-Mode, and doppler examination. Indications: POSSIBLE STROKE. 2D/M Mode Doppler Measurement Value Normal Ranges Measurement Value Normal Ranges LVIDd 2D 3.8 3.5 - 5.6 cm AV Peak Gallo 1.0 m/sec LVIDs 2D 2.6 2.1 - 4.1 cm AV Peak PG 3.7 mmHg LVPWd 2D 1.0 0.6 - 1.1 cm LVOT Peak Gallo 0.7 m/sec IVSd 2D 1.0 0.6 - 1.1 cm LVOT Peak PG 1.9 mmHg AoR Diam 2D 2.4 2.0 - 3.7 cm MV E Peak Gallo 0.6 m/sec EDV 2D 60.9 cm3 MV A Peak Gallo 0.7 m/sec ESV 2D 17.2 cm3 MV E/A 0.8 MV Decel Time 235 msec MV Decel Yellow Medicine 2 MV E/A 0.8 Findings Left Ventricle: Normal left ventricular systolic function. Normal left ventricular cavity size. Normal left ventricular wall thickness. Ejection fraction is visually estimated at 65 %. Tissue Doppler/Mitral Doppler indices are consistent with impaired relaxation (Stage I diastolic dysfunction). Right Ventricle: Normal right ventricular size. Normal right ventricular systolic function. Left Atrium: The left atrium is normal in size. Right Atrium: The right atrium is normal in size. Mitral Valve: Mitral valve leaflets appear mildly thickened. Trace mitral regurgitation. Aortic Valve: No significant aortic stenosis or insufficiency. Aortic cusps appear moderately calcified. Tricuspid Valve: Normal appearance and function of the tricuspid valve with trace physiologic regurgitation. Pulmonic Valve: There is trace pulmonic regurgitation. Pericardium: Normal pericardium with no significant pericardial effusion. Aorta: Normal aortic root. IVC: Normal size and poor respiratory collapse consistent interleaved right atrial pressure. Conclusions 1.Normal left ventricular systolic function. Normal left ventricular cavity size. Normal left ventricular wall thickness. Ejection fraction is visually estimated at 65 %. Tissue Doppler/Mitral Doppler indices are consistent with impaired relaxation (Stage I diastolic dysfunction). 2.Normal right ventricular size. Normal right ventricular systolic function. 3.The left atrium is normal in size. 4.The right atrium is normal in size. 5.No significant valvular stenosis or regurgitation seen. 6.Normal pericardium with no significant pericardial effusion. Electronically Signed By: Davian Panchal 17-Nov-2016 16:13:16 -0700 Patient Name: PENG WEAVER Study Date: 17-Nov-2016 [id number]
[2016-11-17] MEDS: metFORMIN 500 MG TAB PO SCH (17:46)
[2016-11-17] MEDS: INSULIN ASPART [NOVOLOG] 3 ML PEN SC SCH ×2 (17:47→21:32)
[2016-11-17] MEDS ORDERED: INSULIN GLARGINE [LANtus] 3 ML PEN SC SCH (20:00)
[2016-11-17 21:11] VITALS: BP 105/61; RESP 20
[2016-11-17] MEDS: FAMOTIDINE 20 MG INJ IV SCH (21:26)
[2016-11-17] MEDS: QUETIAPINE 100 MG TAB PO SCH (21:28)
[2016-11-17] MEDS ORDERED: INSULIN ASPART [NOVOLOG] 3 ML PEN SC ONE (22:00)
[2016-11-18] MEDS: SOD CHLORIDE 0.9% 1,000 ML IV SCH ×4 (01:19→21:37)
[2016-11-18] MEDS: ACCU-CHEK XX SCH ×2 (02:07→10:23)
[2016-11-18 07:50] VITALS: BP 130/70; RESP 18
[2016-11-18] MEDS: ENOXAPARIN 30 MG/0.3 ML SYG SC SCH (08:22)
[2016-11-18] MEDS: FISH OIL 1,000 MG CAP PO SCH ×3 (08:24→21:20)
[2016-11-18] MEDS: metFORMIN 500 MG TAB PO SCH ×2 (08:24→17:09)
[2016-11-18] MEDS: LINAGLIPTIN 5 MG TABLET PO SCH (08:24)
[2016-11-18] MEDS: INSULIN ASPART [NOVOLOG] 3 ML PEN SC SCH ×4 (08:24→21:20)
[2016-11-18] MEDS: NIACIN 500 MG TAB PO SCH (08:25)
[2016-11-18] MEDS: LEVETIRACETAM 500 MG TAB PO SCH ×2 (08:25→21:20)
[2016-11-18 10:21] LABS: ADD SCAN DIFF NO
[2016-11-18 10:29] LABS: ABNORMAL IP MESSAGE 1; BASOPHILS % 0.2 % (0.0-2.0); EOSINOPHILS # 0.2 10^3/ul (0.0-0.5); EOSINOPHILS % 4.6 % (0.0-7.0); HEMATOCRIT 38.2 % (42.0-52.0); HEMOGLOBIN 13.4 g/dl (14.0-18.0); LYMPHOCYTES # 1.4 10^3/ul (0.8-2.9); LYMPHOCYTES % 27.2 % (15.0-51.0); MEAN CORPUSCULAR HEMOGLOBIN 32.3 pg (29.0-33.0); MEAN CORPUSCULAR HGB CONC 35.1 g/dl (32.0-37.0); MEAN PLATELET VOLUME 9.8 fl (7.4-10.4); MONOCYTE # 0.3 10^3/ul (0.3-0.9); MONOCYTES % 6.2 % (0.0-11.0); NEUTROPHIL # 3.1 10^3/ul (1.6-7.5); NEUTROPHILS % 61.4 % (39.0-77.0); PLATELET COUNT 90 10^3/UL (140-415); RED BLOOD COUNT 4.15 10^6/ul (4.70-6.10); RED CELL DISTRIBUTION WIDTH 14.2 % (11.5-14.5)
[2016-11-18 10:36] LABS: POTASSIUM 3.6 mmol/L (3.5-5.1)
[2016-11-18 10:39] LABS: CREATININE 1.34 mg/dl (0.61-1.24)
--- NOTE | 2016-11-18 13:22 | PN ---
Date/Time of Note Date/Time of Note DATE: 11/18/16 TIME: 13:16 Assessment/Plan VTE Prophylaxis VTE Prophylaxis Intervention: heparin Lines/Catheters IV Catheter Type (from Nrsg): Peripheral IV Assessment/Plan Assessment/Plan 1. Hyperosmolar non ketotic hyperglycemic state, resolved 2. DM, on oral and lantus, increase lantus 3. CVA with h/o stroke x2, with right side weakness 4. s/p right BKA 5. Chronic Seizure disorder, on kepopra 6. Chronic dyslipidemia, onstatin 7. Chronic depression, stable 8. JESUSITA r/o CKD, improving, follow up with BMP 9. DVT prophylaxis: heparin Subjective 24 Hr Interval Summary Free Text/Dictation feels better Exam/Review of Systems Vital Signs Vitals Vital Signs Date Time Temp Pulse Resp B/P Pulse Ox O2 Delivery O2 Flow Rate FiO2 11/18/16 07:50 98.4 85 18 130/70 96 11/17/16 12:10 Room Air 11/16/16 13:15 2 Intake and Output 11/17/16 11/17/16 11/18/16 15:00 23:00 07:00 Intake Total 480 ml 1817.5 ml Output Total 500 ml 550 ml Balance -20 ml 1267.5 ml Exam Constitutional: alert, oriented, well developed Psych: nl mood/affect, no complaints Head: normocephalic Eyes: EOMI, PERRL, nl conjunctiva, nl lids ENMT: nl external ears & nose, nl lips & teeth, nl nasal mucosa & septum Neck: non-tender, supple Respiratory: clear to auscultation, normal air movement, No congested cough, No crackles/rales, No diminished breath sounds, No intercostal retraction, No labored breathing, No other, No respirations, No tactile fremitus, No wheezing Cardiovascular: nl pulses, regular rate and rhythm, No S3, No S4, No bruits, No diastolic murmur, No edema, No gallop, No irregular rhythm, No jugular venous distention (JVD), No murmurs/extra sounds, No other, No rub, No systolic murmur Gastrointestinal: nl liver, spleen, non-tender, soft, No ascites, No bowel sounds, No distended, No firm, No hepatomegaly, No mass , No other, No rebound or guarding, No splenomegaly, No surgical scars, No tender Musculoskeletal: nl extremities to inspection Extremities: normal pulses, other (right AKA), No calf tenderness, No clubbing, No cyanosis, No edema, No palpable cord, No pitting pedal edema, No tenderness Neurological: GUYLINE OPERATOR II-XII intact, nl mental status, nl speech, other (RUE 4/5) Results Result Diagram: 11/18/16 0953 11/18/16 0953 Results 24 hrs Laboratory Tests Test 11/17/16 17:21 11/17/16 20:06 11/17/16 21:25 11/18/16 02:06 Bedside Glucose 259 H 332 H 312 H 229 H Test 11/18/16 07:30 11/18/16 09:53 11/18/16 10:11 11/18/16 11:55 Bedside Glucose 205 251 H 301 H White Blood Count 5.0 Red Blood Count 4.15 L Hemoglobin 13.4 L Hematocrit 38.2 L Mean Corpuscular Volume 92.0 Mean Corpuscular Hemoglobin 32.3 Mean Corpuscular Hemoglobin Concent 35.1 Red Cell Distribution Width 14.2 Platelet Count 90 L Mean Platelet Volume 9.8 Neutrophils % 61.4 Lymphocytes % 27.2 Monocytes % 6.2 Eosinophils % 4.6 Basophils % 0.2 Nucleated Red Blood Cells % 0.0 Neutrophils # 3.1 Lymphocytes # 1.4 Monocytes # 0.3 Eosinophils # 0.2 Basophils # 0.0 Nucleated Red Blood Cells # 0.0 Sodium Level 141 Potassium Level 3.6 Chloride Level 111 H Carbon Dioxide Level 21 Anion Gap 13 Blood Urea Nitrogen 28 #H Creatinine 1.34 H Glucose Level 254 H Calcium Level 9.0 Medications Medications Current Medications Carvedilol (Coreg) 6.25 mg BID PO Last administered on 11/18/16 08:25; Admin Dose 6.25 MG; Start 11/16/16 at 21:00 Levetiracetam (Keppra) 500 mg BID PO Last administered on 11/18/16 08:25; Admin Dose 500 MG; Start 11/16/16 at 21:00 Niacin (Niacin) 500 mg BID PO Last administered on 11/17/16 21:00; Admin Dose 500 MG; Start 11/16/16 at 21:00 Quetiapine Fumarate (Seroquel) 200 mg HS PO Last administered on 11/17/16 21: 28; Admin Dose 200 MG; Start 11/16/16 at 21:00 Zolpidem Tartrate (Ambien) 5 mg QHS PRN PO INSOMNIA; Start 11/16/16 at 15:00 Famotidine (Pepcid Iv) 20 mg HS IV Last administered on 11/17/16 21:26; Admin Dose 20 MG; Start 11/16/16 at 21:00 Enoxaparin Sodium (Lovenox) 30 mg DAILY SC Last administered on 11/18/16 08:22 ; Admin Dose 30 MG; Start 11/17/16 at 09:00 Linagliptin (Tradjenta) 5 mg DAILY PO Last administered on 11/18/16 08:24; Admin Dose 5 MG; Start 11/17/16 at 09:00 Fish Oil 2000 mg 2,000 mg BID PO Last administered on 11/18/16 08:24; Admin Dose 2,000 MG; Start 11/17/16 at 09:00 Sodium Chloride (NS) 1,000 ml @ 125 mls/hr Q8H IV Last administered on 10:09; Admin Dose 125 MLS/HR; Start 11/17/16 at 14:30 Miscellaneous Information 1 ea NOTE XX ; Start 11/17/16 at 14:30 Glucose (Glutose) 15 gm Q15M PRN PO DECREASED GLUCOSE; Start 11/17/16 at 14:30 Glucose (Glutose) 22.5 gm Q15M PRN PO DECREASED GLUCOSE; Start 11/17/16 at 14: 30 Dextrose (D50w Syringe) 25 ml Q15M PRN IV DECREASED GLUCOSE; Start 11/17/16 at 14:30 Dextrose (D50w Syringe) 50 ml Q15M PRN IV DECREASED GLUCOSE; Start 11/17/16 at 14:30 Glucagon (Glucagen) 1 mg Q15M PRN IM DECREASED GLUCOSE; Start 11/17/16 at 14:30 Glucose (Glutose) 15 gm Q15M PRN BUCCAL DECREASED GLUCOSE; Start 11/17/16 at 14 :30 Diagnostic Test (Pha) (Accu-Chek) 1 ea 02 XX Last administered on 11/18/16 02: 07; Admin Dose 1 EA; Start 11/18/16 at 02:00 Insulin Glargine (Lantus) 18 unit DAILY@20 SC ; Start 11/18/16 at 20:00 IWONA ACKERMAN MD Nov 18, 2016 13:21
[2016-11-18] MEDS: HEPARIN 5,000 UNIT/0.5 ML VIAL SC SCH ×2 (13:57→21:18)
[2016-11-18] MEDS ORDERED: INSULIN GLARGINE [LANtus] 3 ML PEN SC SCH ×2 (20:00)
[2016-11-18] MEDS ORDERED: NIACIN 500 MG PO SCH (21:00)
[2016-11-18] MEDS: QUETIAPINE 100 MG TAB PO SCH (21:21)
[2016-11-18] MEDS: FAMOTIDINE 20 MG TAB PO SCH (21:22)
[2016-11-18] MEDS: NIACIN (ER) 500 MG TAB PO SCH (21:32)
[2016-11-18 22:01] VITALS: BP 138/84; RESP 19
[2016-11-19] MEDS: ACCU-CHEK XX SCH (02:43)
[2016-11-19 07:45] VITALS: BP 132/81; RESP 18
[2016-11-19 08:29] LABS: ADD SCAN DIFF NO
[2016-11-19 08:38] LABS: ABNORMAL IP MESSAGE 1; BASOPHILS % 0.2 % (0.0-2.0); EOSINOPHILS # 0.2 10^3/ul (0.0-0.5); EOSINOPHILS % 4.4 % (0.0-7.0); HEMATOCRIT 35.1 % (42.0-52.0); HEMOGLOBIN 12.2 g/dl (14.0-18.0); LYMPHOCYTES # 1.6 10^3/ul (0.8-2.9); LYMPHOCYTES % 33.2 % (15.0-51.0); MEAN CORPUSCULAR HEMOGLOBIN 31.9 pg (29.0-33.0); MEAN CORPUSCULAR HGB CONC 34.8 g/dl (32.0-37.0); MEAN CORPUSCULAR VOLUME 91.6 fl (82.0-101.0); MEAN PLATELET VOLUME 9.9 fl (7.4-10.4); MONOCYTE # 0.4 10^3/ul (0.3-0.9); NEUTROPHIL # 2.5 10^3/ul (1.6-7.5); NEUTROPHILS % 52.8 % (39.0-77.0); PLATELET COUNT 82 10^3/UL (140-415); RED BLOOD COUNT 3.83 10^6/ul (4.70-6.10); WHITE BLOOD COUNT 4.8 10^3/ul (4.8-10.8)
[2016-11-19] MEDS: metFORMIN 500 MG TAB PO SCH ×2 (08:47→17:50)
[2016-11-19] MEDS: LEVETIRACETAM 500 MG TAB PO SCH ×2 (08:47→20:35)
[2016-11-19] MEDS: FISH OIL 1,000 MG CAP PO SCH ×2 (08:47→20:35)
[2016-11-19] MEDS: NIACIN (ER) 500 MG TAB PO SCH ×2 (08:48→20:34)
[2016-11-19] MEDS: LINAGLIPTIN 5 MG TABLET PO SCH (08:48)
[2016-11-19 08:50] LABS: POTASSIUM 3.6 mmol/L (3.5-5.1)
[2016-11-19] MEDS: HEPARIN 5,000 UNIT/0.5 ML VIAL SC SCH ×2 (08:50→20:36)
[2016-11-19] MEDS: INSULIN ASPART [NOVOLOG] 3 ML PEN SC SCH ×5 (08:51→21:00)
[2016-11-19 08:52] LABS: CREATININE 1.26 mg/dl (0.61-1.24)
[2016-11-19] MEDS: SOD CHLORIDE 0.9% 1,000 ML IV SCH (12:34)
--- NOTE | 2016-11-19 15:21 | PN ---
Date/Time of Note Date/Time of Note DATE: 11/19/16 TIME: 15:16 Assessment/Plan VTE Prophylaxis VTE Prophylaxis Intervention: heparin Lines/Catheters IV Catheter Type (from Nrsg): Saline Lock Assessment/Plan Assessment/Plan 1. Hyperosmolar non ketotic hyperglycemic state, resolved 2. DM, on oral and lantus, adjusting insulins to get better BG control 3. CVA with h/o stroke x2, with right side weakness 4. s/p right BKA 5. Chronic Seizure disorder, on keppra 6. Chronic dyslipidemia, on statin 7. Chronic depression, stable 8. JESUSITA r/o CKD, improving, follow up with BMP 9. DVT prophylaxis: heparin Subjective 24 Hr Interval Summary Free Text/Dictation no complaint. afebrile. Exam/Review of Systems Vital Signs Vitals Vital Signs Date Time Temp Pulse Resp B/P Pulse Ox O2 Delivery O2 Flow Rate FiO2 11/19/16 07:45 98.8 91 18 132/81 93 11/17/16 12:10 Room Air 11/16/16 13:15 2 Intake and Output 11/18/16 11/18/16 11/19/16 14:59 22:59 06:59 Intake Total 375 ml 1362.5 ml 1175 ml Output Total 1100 ml 1100 ml Balance 375 ml 262.5 ml 75 ml Exam Constitutional: alert, oriented, well developed Psych: nl mood/affect, no complaints Head: atraumatic, normocephalic Eyes: EOMI, nl conjunctiva, nl lids ENMT: nl external ears & nose, nl lips & teeth, nl nasal mucosa & septum Neck: non-tender, supple Respiratory: clear to auscultation, normal air movement, No congested cough, No crackles/rales, No diminished breath sounds, No intercostal retraction, No labored breathing, No other, No respirations, No tactile fremitus, No wheezing Cardiovascular: nl pulses, regular rate and rhythm, No S3, No S4, No bruits, No diastolic murmur, No edema, No gallop, No irregular rhythm, No jugular venous distention (JVD), No murmurs/extra sounds, No other, No rub, No systolic murmur Gastrointestinal: nl liver, spleen, non-tender, soft, No ascites, No bowel sounds, No distended, No firm, No hepatomegaly, No mass , No other, No rebound or guarding, No splenomegaly, No surgical scars, No tender Musculoskeletal: other (right AKA) Neurological: DIRECTOR CARDIOVASCULAR II-XII intact, nl mental status, nl speech, nl strength Skin: nl turgor Lymph: nl lymph nodes Results Result Diagram: 11/19/16 0750 11/19/16 0750 Results 24 hrs Laboratory Tests Test 11/18/16 16:59 11/18/16 19:52 11/18/16 21:16 11/19/16 02:28 Bedside Glucose 280 H 249 H 264 H 235 H Test 11/19/16 07:50 11/19/16 08:06 11/19/16 11:32 White Blood Count 4.8 Red Blood Count 3.83 L Hemoglobin 12.2 L Hematocrit 35.1 L Mean Corpuscular Volume 91.6 Mean Corpuscular Hemoglobin 31.9 Mean Corpuscular Hemoglobin Concent 34.8 Red Cell Distribution Width 14.0 Platelet Count 82 L Mean Platelet Volume 9.9 Neutrophils % 52.8 Lymphocytes % 33.2 Monocytes % 9.0 Eosinophils % 4.4 Basophils % 0.2 Nucleated Red Blood Cells % 0.0 Neutrophils # 2.5 Lymphocytes # 1.6 Monocytes # 0.4 Eosinophils # 0.2 Basophils # 0.0 Nucleated Red Blood Cells # 0.0 Sodium Level 141 Potassium Level 3.6 Chloride Level 112 H Carbon Dioxide Level 21 Anion Gap 12 Blood Urea Nitrogen 22 H Creatinine 1.26 H Glucose Level 189 Calcium Level 9.0 Bedside Glucose 182 221 H Medications Medications Current Medications Carvedilol (Coreg) 6.25 mg BID PO Last administered on 11/19/16 08:47; Admin Dose 6.25 MG; Start 11/16/16 at 21:00 Levetiracetam (Keppra) 500 mg BID PO Last administered on 11/19/16 08:47; Admin Dose 500 MG; Start 11/16/16 at 21:00 Quetiapine Fumarate (Seroquel) 200 mg HS PO Last administered on 11/18/16 21: 21; Admin Dose 200 MG; Start 11/16/16 at 21:00 Zolpidem Tartrate (Ambien) 5 mg QHS PRN PO INSOMNIA; Start 11/16/16 at 15:00 Linagliptin (Tradjenta) 5 mg DAILY PO Last administered on 11/19/16 08:48; Admin Dose 5 MG; Start 11/17/16 at 09:00 Fish Oil 2000 mg 2,000 mg BID PO Last administered on 11/19/16 08:47; Admin Dose 2,000 MG; Start 11/17/16 at 09:00 Sodium Chloride (NS) 1,000 ml @ 75 mls/hr [id number] IV Last administered on 11/19 12:34; Admin Dose 75 MLS/HR; Start 11/17/16 at 14:30 Miscellaneous Information 1 ea NOTE XX ; Start 11/17/16 at 14:30 Glucose (Glutose) 15 gm Q15M PRN PO DECREASED GLUCOSE; Start 11/17/16 at 14:30 Glucose (Glutose) 22.5 gm Q15M PRN PO DECREASED GLUCOSE; Start 11/17/16 at 14: 30 Dextrose (D50w Syringe) 25 ml Q15M PRN IV DECREASED GLUCOSE; Start 11/17/16 at 14:30 Dextrose (D50w Syringe) 50 ml Q15M PRN IV DECREASED GLUCOSE; Start 11/17/16 at 14:30 Glucagon (Glucagen) 1 mg Q15M PRN IM DECREASED GLUCOSE; Start 11/17/16 at 14:30 Glucose (Glutose) 15 gm Q15M PRN BUCCAL DECREASED GLUCOSE; Start 11/17/16 at 14 :30 Diagnostic Test (Pha) (Accu-Chek) 1 ea 02 XX Last administered on 11/19/16 02: 43; Admin Dose 1 EA; Start 11/18/16 at 02:00 Insulin Glargine (Lantus) 20 unit DAILY@20 SC Last administered on 11/18/16 19 :57; Admin Dose 20 UNIT; Start 11/18/16 at 20:00 Heparin Sodium (Porcine) (Heparin (5000 Units/0.5 ml)) 5,000 unit BID SC Last administered on 11/19/16 08:50; Admin Dose 5,000 UNIT; Start 11/18/16 at 13:30 Famotidine (Pepcid) 20 mg HS PO Last administered on 11/18/16 21:22; Admin Dose 20 MG; Start 11/18/16 at 21:00 Niacin (Niaspan) 500 mg BID PO Last administered on 11/19/16 08:48; Admin Dose 500 MG; Start 11/18/16 at 21:25 IWONA ACKERMAN MD Nov 19, 2016 15:21
[2016-11-19 20:27] VITALS: BP 138/84; RESP 19
[2016-11-19] MEDS: INSULIN GLARGINE [LANtus] 3 ML PEN SC SCH (20:33)
[2016-11-19] MEDS: FAMOTIDINE 20 MG TAB PO SCH (20:35)
[2016-11-19] MEDS: QUETIAPINE 100 MG TAB PO SCH (20:35)
[2016-11-20] MEDS: SOD CHLORIDE 0.9% 1,000 ML IV SCH ×2 (00:51→15:26)
[2016-11-20] MEDS: ACCU-CHEK XX SCH (02:00)
[2016-11-20] MEDS ORDERED: ACCU-CHEK XX SCH (02:00)
[2016-11-20 07:50] VITALS: BP 116/66; RESP 20
[2016-11-20] MEDS: INSULIN ASPART [NOVOLOG] 3 ML PEN SC SCH ×7 (08:00→20:12)
[2016-11-20] MEDS: HEPARIN 5,000 UNIT/0.5 ML VIAL SC SCH ×2 (08:32→20:21)
[2016-11-20] MEDS: FISH OIL 1,000 MG CAP PO SCH ×2 (08:32→20:13)
[2016-11-20] MEDS: LEVETIRACETAM 500 MG TAB PO SCH ×2 (08:32→20:16)
[2016-11-20] MEDS: metFORMIN 500 MG TAB PO SCH ×2 (08:33→17:14)
[2016-11-20] MEDS: LINAGLIPTIN 5 MG TABLET PO SCH (08:33)
[2016-11-20] MEDS: NIACIN (ER) 500 MG TAB PO SCH ×2 (08:38→20:16)
--- NOTE | 2016-11-20 18:11 | PN ---
Date/Time of Note Date/Time of Note DATE: 11/20/16 TIME: 18:10 Assessment/Plan VTE Prophylaxis VTE Prophylaxis Intervention: heparin Lines/Catheters IV Catheter Type (from Nrs): [facility] Urinary Cath still in place: No Assessment/Plan Chief Complaint/Hosp Course 1. Hyperosmolar non ketotic hyperglycemic state, resolved, clinically stable, will consult PT and case management for discharge planning for possibly d/c tomorrow back to facility. 2. DM, on oral and lantus, adjusting insulin to get better BG control, reassess in the AM. 3. CVA with h/o stroke x2, with right side weakness 4. s/p right BKA 5. Chronic Seizure disorder, on keppra 6. Chronic dyslipidemia, on statin 7. Chronic depression, stable 8. JESUSITA r/o CKD, improving, follow up with BMP 9. DVT prophylaxis: heparin Problems: Subjective 24 Hr Interval Summary Free Text/Dictation Patient reports improvement. States that he is feeling better. Constitutional: no complaints Respiratory: no complaints Cardiovascular: no complaints Gastrointestinal: no complaints Exam/Review of Systems Vital Signs Vitals Vital Signs Date Time Temp Pulse Resp B/P Pulse Ox O2 Delivery O2 Flow Rate FiO2 11/20/16 07:50 97.6 87 20 116/66 96 11/17/16 12:10 Room Air 11/16/16 13:15 2 Intake and Output 11/19/16 11/19/16 11/20/16 15:00 23:00 07:00 Intake Total 1200 ml 2525 ml Output Total 1800 ml 2300 ml Balance -600 ml 225 ml Exam Cardiovascular: regular rate and rhythm Gastrointestinal: soft Musculoskeletal: other (right AKA) Results Result Diagram: 11/19/16 0750 11/19/16 0750 Results 24 hrs Laboratory Tests Test 11/19/16 20:31 11/19/16 21:50 11/20/16 08:10 11/20/16 11:55 Bedside Glucose 208 180 133 166 Test 11/20/16 17:07 Bedside Glucose 186 Medications Medications Current Medications Carvedilol (Coreg) 6.25 mg BID PO Last administered on 11/20/16 08:51; Admin Dose 6.25 MG; Start 11/16/16 at 21:00 Levetiracetam (Keppra) 500 mg BID PO Last administered on 11/20/16 08:32; Admin Dose 500 MG; Start 11/16/16 at 21:00 Quetiapine Fumarate (Seroquel) 200 mg HS PO Last administered on 11/19/16 20: 35; Admin Dose 200 MG; Start 11/16/16 at 21:00 Zolpidem Tartrate (Ambien) 5 mg QHS PRN PO INSOMNIA; Start 11/16/16 at 15:00 Linagliptin (Tradjenta) 5 mg DAILY PO Last administered on 11/20/16 08:33; Admin Dose 5 MG; Start 11/17/16 at 09:00 Fish Oil 2000 mg 2,000 mg BID PO Last administered on 11/20/16 08:32; Admin Dose 2,000 MG; Start 11/17/16 at 09:00 Sodium Chloride (NS) 1,000 ml @ 75 mls/hr [id number] IV Last administered on 11/20 15:26; Admin Dose 75 MLS/HR; Start 11/17/16 at 14:30 Miscellaneous Information 1 ea NOTE XX ; Start 11/17/16 at 14:30 Glucose (Glutose) 15 gm Q15M PRN PO DECREASED GLUCOSE; Start 11/17/16 at 14:30 Glucose (Glutose) 22.5 gm Q15M PRN PO DECREASED GLUCOSE; Start 11/17/16 at 14: 30 Dextrose (D50w Syringe) 25 ml Q15M PRN IV DECREASED GLUCOSE; Start 11/17/16 at 14:30 Dextrose (D50w Syringe) 50 ml Q15M PRN IV DECREASED GLUCOSE; Start 11/17/16 at 14:30 Glucagon (Glucagen) 1 mg Q15M PRN IM DECREASED GLUCOSE; Start 11/17/16 at 14:30 Glucose (Glutose) 15 gm Q15M PRN BUCCAL DECREASED GLUCOSE; Start 11/17/16 at 14 :30 Diagnostic Test (Pha) (Accu-Chek) 1 ea 02 XX Last administered on 11/19/16 02: 43; Admin Dose 1 EA; Start 11/18/16 at 02:00 Heparin Sodium (Porcine) (Heparin (5000 Units/0.5 ml)) 5,000 unit BID SC Last administered on 11/20/16 08:32; Admin Dose 5,000 UNIT; Start 11/18/16 at 13:30 Famotidine (Pepcid) 20 mg HS PO Last administered on 11/19/16 20:35; Admin Dose 20 MG; Start 11/18/16 at 21:00 Niacin (Niaspan) 500 mg BID PO Last administered on 11/20/16 08:38; Admin Dose 500 MG; Start 11/18/16 at 21:25 Insulin Glargine (Lantus) 24 unit DAILY@20 SC Last administered on 11/19/16 20 :33; Admin Dose 24 UNIT; Start 11/19/16 at 20:00 PENG RICHEY Nov 20, 2016 18:10
[2016-11-20] MEDS: FAMOTIDINE 20 MG TAB PO SCH (20:13)
[2016-11-20] MEDS: QUETIAPINE 100 MG TAB PO SCH (20:14)
[2016-11-20] MEDS: INSULIN GLARGINE [LANtus] 3 ML PEN SC SCH (20:21)
[2016-11-21] MEDS: ACCU-CHEK XX SCH (02:00)
[2016-11-21] MEDS: SOD CHLORIDE 0.9% 1,000 ML IV SCH (04:17)
[2016-11-21] MEDS: INSULIN ASPART [NOVOLOG] 3 ML PEN SC SCH ×7 (07:55→20:31)
[2016-11-21] MEDS: metFORMIN 500 MG TAB PO SCH ×2 (07:55→17:27)
[2016-11-21] MEDS: HEPARIN 5,000 UNIT/0.5 ML VIAL SC SCH ×2 (07:57→20:37)
[2016-11-21] MEDS: LINAGLIPTIN 5 MG TABLET PO SCH (07:57)
[2016-11-21] MEDS: LEVETIRACETAM 500 MG TAB PO SCH ×2 (07:57→20:31)
[2016-11-21] MEDS: NIACIN (ER) 500 MG TAB PO SCH ×2 (07:57→20:34)
[2016-11-21] MEDS: FISH OIL 1,000 MG CAP PO SCH ×2 (07:58→20:31)
[2016-11-21 09:12] VITALS: BP 140/74; RESP 18
--- NOTE | 2016-11-21 17:29 | PN ---
Date/Time of Note Date/Time of Note DATE: 11/21/16 TIME: 17:26 Assessment/Plan VTE Prophylaxis VTE Prophylaxis Intervention: heparin Lines/Catheters [facility] Peripheral IV Urinary Cath still in place: No Assessment/Plan Chief Complaint/Hosp Course 1. Hyperosmolar non ketotic hyperglycemic state, resolved, clinically stable, PT recommended patient to go to SNF however patient would like to go back to [place]. Case management aware and they will discuss with [place] for the protocol. 2. DM, on oral and lantus, blood sugars currently appear to be well controlled continue current regimen and monitor. 3. CVA with h/o stroke x2, with right side weakness 4. s/p right BKA 5. Chronic Seizure disorder, on keppra 6. Chronic dyslipidemia, on statin 7. Chronic depression, stable 8. JESUSITA r/o CKD, improving, follow up with BMP 9. DVT prophylaxis: heparin Disposition-patient is clinically stable, PT recommended discharge to [facility] however patient patient wants to go back to [place] case management is aware and they will discuss this with [place] in the a.m. possible discharge tomorrow pending case management recs. Problems: Subjective 24 Hr Interval Summary Free Text/Dictation Patient states she is doing well. PT recommended patient to be going to the [facility]. However patient does not want to go to the significant wants to go back to [place]. This is discussed with the director case management who was going to touch base with [place] regarding further discharge planning. Exam/Review of Systems Vital Signs Vitals Vital Signs Date Time Temp Pulse Resp B/P Pulse Ox O2 Delivery O2 Flow Rate FiO2 11/21/16 09:12 97.6 95 18 140/74 96 11/17/16 12:10 Room Air Intake and Output 11/20/16 11/20/16 11/21/16 15:00 23:00 07:00 Intake Total 1750 ml 1565 ml Output Total 1100 ml 1600 ml Balance 650 ml -35 ml Exam General: Patient lying comfortably in bed, conversing well HEENT: Atraumatic, normocephalic. The pupils are equal, round and reactive. Extraocular motor are intact Neck: Supple with full range of motion. No rigidity or meningismus Chest: Nontender Lungs: Clear to auscultation bilaterally no crackles rales or wheezing Heart: Normal S1-S2, Regular rhythm and rate. No murmur, S3, or S4 Abdomen: Soft , nontender, nondistended , bowel sounds are present. No guarding no rebound tenderness , No masses or organomegaly. No costovertebral temporal angle mass Extremities: Right BKA Results Result Diagram: 11/19/16 0750 11/19/16 0750 Results 24 hrs Laboratory Tests Test 11/20/16 20:10 11/21/16 07:52 11/21/16 11:47 Bedside Glucose 150 112 171 Medications Medications Current Medications Carvedilol (Coreg) 6.25 mg BID PO Last administered on 11/21/16 08:35; Admin Dose 6.25 MG; Start 11/16/16 at 21:00 Levetiracetam (Keppra) 500 mg BID PO Last administered on 11/21/16 07:57; Admin Dose 500 MG; Start 11/16/16 at 21:00 Quetiapine Fumarate (Seroquel) 200 mg HS PO Last administered on 11/20/16 20: 14; Admin Dose 200 MG; Start 11/16/16 at 21:00 Zolpidem Tartrate (Ambien) 5 mg QHS PRN PO INSOMNIA; Start 11/16/16 at 15:00 Linagliptin (Tradjenta) 5 mg DAILY PO Last administered on 11/21/16 07:57; Admin Dose 5 MG; Start 11/17/16 at 09:00 Fish Oil 2000 mg 2,000 mg BID PO Last administered on 11/21/16 07:58; Admin Dose 2,000 MG; Start 11/17/16 at 09:00 Sodium Chloride (NS) 1,000 ml @ 75 mls/hr [id number] IV Last administered on 11/21 04:17; Admin Dose 75 MLS/HR; Start 11/17/16 at 14:30 Miscellaneous Information 1 ea NOTE XX ; Start 11/17/16 at 14:30 Glucose (Glutose) 15 gm Q15M PRN PO DECREASED GLUCOSE; Start 11/17/16 at 14:30 Glucose (Glutose) 22.5 gm Q15M PRN PO DECREASED GLUCOSE; Start 11/17/16 at 14: 30 Dextrose (D50w Syringe) 25 ml Q15M PRN IV DECREASED GLUCOSE; Start 11/17/16 at 14:30 Dextrose (D50w Syringe) 50 ml Q15M PRN IV DECREASED GLUCOSE; Start 11/17/16 at 14:30 Glucagon (Glucagen) 1 mg Q15M PRN IM DECREASED GLUCOSE; Start 11/17/16 at 14:30 Glucose (Glutose) 15 gm Q15M PRN BUCCAL DECREASED GLUCOSE; Start 11/17/16 at 14 :30 Diagnostic Test (Pha) (Accu-Chek) 1 ea 02 XX Last administered on 11/19/16 02: 43; Admin Dose 1 EA; Start 11/18/16 at 02:00 Heparin Sodium (Porcine) (Heparin (5000 Units/0.5 ml)) 5,000 unit BID SC Last administered on 11/21/16 07:57; Admin Dose 5,000 UNIT; Start 11/18/16 at 13:30 Famotidine (Pepcid) 20 mg HS PO Last administered on 11/20/16 20:13; Admin Dose 20 MG; Start 11/18/16 at 21:00 Niacin (Niaspan) 500 mg BID PO Last administered on 11/21/16 07:57; Admin Dose 500 MG; Start 11/18/16 at 21:25 Insulin Glargine (Lantus) 24 unit DAILY@20 SC Last administered on 11/20/16 20 :21; Admin Dose 24 UNIT; Start 11/19/16 at 20:00 PENG RICHEY Nov 21, 2016 17:28
[2016-11-21 19:02] LABS: POTASSIUM 3.9 mmol/L (3.5-5.1)
[2016-11-21 19:04] LABS: CREATININE 1.44 mg/dl (0.61-1.24)
[2016-11-21 19:05] LABS: CALCIUM 9.7 mg/dl (8.4-10.2)
[2016-11-21 20:12] VITALS: BP 145/79; RESP 18
[2016-11-21] MEDS: QUETIAPINE 100 MG TAB PO SCH (20:31)
[2016-11-21] MEDS: FAMOTIDINE 20 MG TAB PO SCH (20:31)
[2016-11-21] MEDS: INSULIN GLARGINE [LANtus] 3 ML PEN SC SCH (20:39)
[2016-11-22] MEDS: SOD CHLORIDE 0.9% 1,000 ML IV SCH ×3 (01:17→15:40)
[2016-11-22] MEDS: ACCU-CHEK XX SCH (01:45)
[2016-11-22 07:25] VITALS: BP 146/64; RESP 18
[2016-11-22] MEDS: INSULIN ASPART [NOVOLOG] 3 ML PEN SC SCH ×7 (08:00→21:00)
[2016-11-22] MEDS: HEPARIN 5,000 UNIT/0.5 ML VIAL SC SCH ×2 (08:17→21:31)
[2016-11-22] MEDS: metFORMIN 500 MG TAB PO SCH ×2 (08:18→17:49)
[2016-11-22] MEDS: LEVETIRACETAM 500 MG TAB PO SCH ×2 (08:18→21:29)
[2016-11-22] MEDS: LINAGLIPTIN 5 MG TABLET PO SCH (08:19)
[2016-11-22] MEDS: FISH OIL 1,000 MG CAP PO SCH ×2 (08:19→21:29)
[2016-11-22] MEDS: NIACIN (ER) 500 MG TAB PO SCH ×2 (09:00→22:25)
[2016-11-22] MEDS ORDERED: ACETAMINOPHEN 325 MG TAB PO ONE (12:30)
[2016-11-22] MEDS ORDERED: KETOROLAC 15 MG INJ IM STA (15:01)
--- NOTE | 2016-11-22 15:20 | PN ---
Date/Time of Note Date/Time of Note DATE: 11/22/16 TIME: 15:11 Assessment/Plan VTE Prophylaxis VTE Prophylaxis Intervention: heparin Lines/Catheters IV [facility] Type (from [facility]): Peripheral IV Urinary Cath still in place: No Assessment/Plan Chief Complaint/Hosp Course 1. Hyperosmolar non ketotic hyperglycemic state, resolved, clinically stable. 2. DM, on oral and lantus, blood sugars currently appear to be well controlled continue current regimen and monitor. 3. Left Hand stiffness, warm to touch, tender to palpation, thenar discoloration, patient cannot close fist. At this time the etiology is unknown, however I will order stat U/S of the upper extremity to rule out clot, xrays of the hand, ESR, CK, uric acid. Toradol 15mg IV x 1. 3. CVA with h/o stroke x2, with right side weakness 4. s/p right BKA 5. Chronic Seizure disorder, on keppra 6. Chronic dyslipidemia, on statin 7. Chronic depression, stable 8. JESUSITA r/o CKD, improving, follow up with BMP 9. DVT prophylaxis: heparin Disposition-Patient's discharge on hold until we can figure out the etiology of the patients acute hand pain and swelling. Problems: Subjective 24 Hr Interval Summary Free Text/Dictation Patient states last nigh the experienced pain in his left hand. He now cannot fully close it because it is stiff. It is painful to touch. Does not feel cold. Exam/Review of Systems Vital Signs Vitals Vital Signs Date Time Temp Pulse Resp B/P Pulse Ox O2 Delivery O2 Flow Rate FiO2 11/22/16 07:25 98.8 76 18 146/64 96 Intake and Output 11/21/16 11/21/16 11/22/16 14:59 22:59 06:59 Intake Total 1950 ml 870 ml Output Total 1400 ml 700 ml Balance 550 ml 170 ml Exam General: Patient lying comfortably in bed, does state his hand hurts HEENT: Atraumatic, normocephalic. The pupils are equal, round and reactive. Extraocular motor are intact Neck: Supple with full range of motion. No rigidity or meningismus Chest: Nontender Lungs: Clear to auscultation bilaterally no crackles rales or wheezing Heart: Normal S1-S2, Regular rhythm and rate. No murmur, S3, or S4 Abdomen: Soft , nontender, nondistended , bowel sounds are present. No guarding no rebound tenderness , No masses or organomegaly. No costovertebral temporal angle mass Extremities: Right BKA, LEFT hand and fingers swelling noted, warm to touch, bluish hue to thenar eminence, unable to fully close hand, tender to palpation. Results Result Diagram: 11/19/16 0750 11/21/16 1800 Results 24 hrs Laboratory Tests Test 11/21/16 17:28 11/21/16 18:00 11/21/16 20:26 11/22/16 07:52 Bedside Glucose 162 119 114 Sodium Level 137 Potassium Level 3.9 Chloride Level 104 Carbon Dioxide Level 22 Anion Gap 15 Blood Urea Nitrogen 21 H Creatinine 1.44 H Glucose Level 162 Calcium Level 9.7 Test 11/22/16 11:39 Bedside Glucose 161 Medications Medications Current Medications Carvedilol (Coreg) 6.25 mg BID PO Last administered on 11/22/16 08:18; Admin Dose 6.25 MG; Start 11/16/16 at 21:00 Levetiracetam (Keppra) 500 mg BID PO Last administered on 11/22/16 08:18; Admin Dose 500 MG; Start 11/16/16 at 21:00 Quetiapine Fumarate (Seroquel) 200 mg HS PO Last administered on 11/21/16 20: 31; Admin Dose 200 MG; Start 11/16/16 at 21:00 Zolpidem Tartrate (Ambien) 5 mg QHS PRN PO INSOMNIA; Start 11/16/16 at 15:00 Linagliptin (Tradjenta) 5 mg DAILY PO Last administered on 11/22/16 08:19; Admin Dose 5 MG; Start 11/17/16 at 09:00 Fish Oil 2000 mg 2,000 mg BID PO Last administered on 11/22/16 08:19; Admin Dose 2,000 MG; Start 11/17/16 at 09:00 Sodium Chloride (NS) 1,000 ml @ 75 mls/hr [id number] IV Last administered on 11/22 01:17; Admin Dose 75 MLS/HR; Start 11/17/16 at 14:30 Miscellaneous Information 1 ea NOTE XX ; Start 11/17/16 at 14:30 Glucose (Glutose) 15 gm Q15M PRN PO DECREASED GLUCOSE; Start 11/17/16 at 14:30 Glucose (Glutose) 22.5 gm Q15M PRN PO DECREASED GLUCOSE; Start 11/17/16 at 14: 30 Dextrose (D50w Syringe) 25 ml Q15M PRN IV DECREASED GLUCOSE; Start 11/17/16 at 14:30 Dextrose (D50w Syringe) 50 ml Q15M PRN IV DECREASED GLUCOSE; Start 11/17/16 at 14:30 Glucagon (Glucagen) 1 mg Q15M PRN IM DECREASED GLUCOSE; Start 11/17/16 at 14:30 Glucose (Glutose) 15 gm Q15M PRN BUCCAL DECREASED GLUCOSE; Start 11/17/16 at 14 :30 Diagnostic Test (Pha) (Accu-Chek) 1 ea 02 XX Last administered on 11/19/16 02: 43; Admin Dose 1 EA; Start 11/18/16 at 02:00 Heparin Sodium (Porcine) (Heparin (5000 Units/0.5 ml)) 5,000 unit BID SC Last administered on 11/22/16 08:17; Admin Dose 5,000 UNIT; Start 11/18/16 at 13:30 Famotidine (Pepcid) 20 mg HS PO Last administered on 11/21/16 20:31; Admin Dose 20 MG; Start 11/18/16 at 21:00 Niacin (Niaspan) 500 mg BID PO Last administered on 11/21/16 20:34; Admin Dose 500 MG; Start 11/18/16 at 21:25 Insulin Glargine (Lantus) 24 unit DAILY@20 SC Last administered on 11/21/16 20 :39; Admin Dose 24 UNIT; Start 11/19/16 at 20:00 PENG RICHEY Nov 22, 2016 15:20
--- NOTE | 2016-11-22 16:15 | RADRPT ---
PROCEDURE: XR Hand. CLINICAL INDICATION: Generalized left hand pain. Stiffness. TECHNIQUE: PA, oblique and lateral views of the left hand were obtained. COMPARISON: None available. FINDINGS: Mineralization is within normal limits. Old healed fifth metacarpal fracture is present. There is n o evidence of acute fracture or dislocation. Narrowing of the proximal and distal interphalangeal j oints is mild, most pronounced at the fourth and fifth fingers. The metacarpal phalangeal joints ap pear intact. Foreshortening of the distal radius likely related to an old healed fractures noted wi th narrowing of the radiocarpal joint. Mild nonspecific soft tissue swelling is present. No radiopa que foreign body is present. RPTAT:HJJR IMPRESSION: 1. Old healed fractures involving the distal radius and fifth metacarpal neck of the left hand. 2. 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 3. Nonspecific soft tissue swelling. Physician Julieta Date Time Electronically viewed and signed by Physician Julieta on 11/22/2016 16:14 /
--- NOTE | 2016-11-22 16:21 | RADRPT ---
PROCEDURE: US upper extremity Venous. CLINICAL INDICATION: Left arm edema TECHNIQUE: Multiple sonographic images of the left upper extremity venous system was obtained util izing grayscale, color-flow, compressive sonography and doppler imaging with augmentation. The imag es were reviewed on a PACS workstation. COMPARISON: None. FINDINGS: There is normal compressibility and flow within the left internal jugular vein, subclavian vein, axi llary vein, brachial, basilic, cephalic, radial and ulnar veins. RPTAT: AA IMPRESSION: No sonographic evidence for venous thrombosis. .Mario Hill MD, MD Date Time Electronically viewed and signed by .Mario Hill MD, MD on 11/22/2016 16:20 .S/
[2016-11-22] MEDS ORDERED: KETOROLAC 15 MG INJ IV PRN (19:00)
[2016-11-22 20:00] VITALS: BP 134/69; RESP 18
[2016-11-22] MEDS: INSULIN GLARGINE [LANtus] 3 ML PEN SC SCH (20:29)
[2016-11-22] MEDS: QUETIAPINE 100 MG TAB PO SCH (21:29)
[2016-11-22] MEDS: FAMOTIDINE 20 MG TAB PO SCH (21:29)
[2016-11-23] MEDS: ACCU-CHEK XX SCH (02:00)
[2016-11-23] MEDS: SOD CHLORIDE 0.9% 1,000 ML IV SCH ×3 (05:38→23:54)
[2016-11-23 08:00] VITALS: BP 139/79; RESP 18
[2016-11-23] MEDS: INSULIN ASPART [NOVOLOG] 3 ML PEN SC SCH ×7 (08:00→20:16)
[2016-11-23] MEDS: metFORMIN 500 MG TAB PO SCH ×2 (08:10→17:37)
[2016-11-23] MEDS: NIACIN (ER) 500 MG TAB PO SCH ×2 (09:00→20:15)
[2016-11-23] MEDS: LEVETIRACETAM 500 MG TAB PO SCH ×2 (09:38→20:15)
[2016-11-23] MEDS: FISH OIL 1,000 MG CAP PO SCH ×2 (09:38→20:15)
[2016-11-23] MEDS: LINAGLIPTIN 5 MG TABLET PO SCH (09:39)
[2016-11-23] MEDS: HEPARIN 5,000 UNIT/0.5 ML VIAL SC SCH ×2 (09:40→20:15)
--- NOTE | 2016-11-23 09:54 | PN ---
Date/Time of Note Date/Time of Note DATE: 11/23/16 TIME: 09:51 Assessment/Plan VTE Prophylaxis VTE Prophylaxis Intervention: LMWH Lines/Catheters [facility] Peripheral IV Urinary Cath still in place: No Assessment/Plan Problems: (1) Cellulitis of left hand Status: Acute Comment: Y cannot definitively say is a cellulitis it does not appear to be gout and does not appear to be a DVT and does not appear to be any type of new bony injury. We will get blood cultures and place him on antibiotics. (2) Diabetes mellitus type 2 in nonobese Status: Chronic Comment: Excellent control of his diabetes. (3) Seizure disorder as sequela of cerebrovascular accident Status: Chronic Comment: Stable and not having any seizure activity. (4) Mixed hyperlipidemia due to type 2 diabetes mellitus Status: Chronic Comment: On treatment. (5) Gastroesophageal reflux disease Status: Chronic Comment: Controlled with medications. Qualifiers: Esophagitis presence: without esophagitis Qualified Code: K21.9 - Gastroesophageal reflux disease without esophagitis Assessment/Plan Given it looks like he will be in the hospital bit longer I will once again asked the complex case manager to explore transferring him over to the [facility] care. Subjective 24 Hr Interval Summary Free Text/Dictation Patient complains of left hand pain warmth and swelling Constitutional: no complaints (Denies fever chills or sweats) Respiratory: no complaints Cardiovascular: no complaints Gastrointestinal: no complaints Exam/Review of Systems Vital Signs Vitals Vital Signs Date Time Temp Pulse Resp B/P Pulse Ox O2 Delivery O2 Flow Rate FiO2 11/23/16 08:00 98.6 84 18 139/79 94 Intake and Output 11/22/16 11/22/16 11/23/16 15:00 23:00 07:00 Intake Total 2080 ml 1750 ml Output Total 800 ml 1150 ml Balance 1280 ml 600 ml Exam Constitutional: alert, oriented Neck: non-tender, supple Respiratory: clear to auscultation, normal air movement Cardiovascular: nl pulses, regular rate and rhythm Extremities: other (Left hand has evidence of dorsal side IV puncture. There is redness warmth and swelling. Limited range of motion.) Results Result Diagram: 11/19/16 0750 11/21/16 1800 Results 24 hrs Laboratory Tests Test 11/22/16 11:39 11/22/16 15:25 11/22/16 17:26 11/22/16 20:28 Bedside Glucose 161 136 121 Erythrocyte Sedimentation Rate 77 H Uric Acid 6.5 Creatine Kinase 36 Test 11/22/16 21:41 11/23/16 07:55 Bedside Glucose 123 111 Medications Medications Current Medications Carvedilol (Coreg) 6.25 mg BID PO Last administered on 11/23/16 09:39; Admin Dose 6.25 MG; Start 11/16/16 at 21:00 Levetiracetam (Keppra) 500 mg BID PO Last administered on 11/23/16 09:38; Admin Dose 500 MG; Start 11/16/16 at 21:00 Quetiapine Fumarate (Seroquel) 200 mg HS PO Last administered on 11/22/16 21: 29; Admin Dose 200 MG; Start 11/16/16 at 21:00 Zolpidem Tartrate (Ambien) 5 mg QHS PRN PO INSOMNIA Last administered on 21:36; Admin Dose 5 MG; Start 11/16/16 at 15:00 Linagliptin (Tradjenta) 5 mg DAILY PO Last administered on 11/23/16 09:39; Admin Dose 5 MG; Start 11/17/16 at 09:00 Fish Oil 2000 mg 2,000 mg BID PO Last administered on 11/23/16 09:38; Admin Dose 2,000 MG; Start 11/17/16 at 09:00 Sodium Chloride (NS) 1,000 ml @ 75 mls/hr [id number] IV Last administered on 11/23 05:38; Admin Dose 75 MLS/HR; Start 11/17/16 at 14:30 Miscellaneous Information 1 ea NOTE XX ; Start 11/17/16 at 14:30 Glucose (Glutose) 15 gm Q15M PRN PO DECREASED GLUCOSE; Start 11/17/16 at 14:30 Glucose (Glutose) 22.5 gm Q15M PRN PO DECREASED GLUCOSE; Start 11/17/16 at 14: 30 Dextrose (D50w Syringe) 25 ml Q15M PRN IV DECREASED GLUCOSE; Start 11/17/16 at 14:30 Dextrose (D50w Syringe) 50 ml Q15M PRN IV DECREASED GLUCOSE; Start 11/17/16 at 14:30 Glucagon (Glucagen) 1 mg Q15M PRN IM DECREASED GLUCOSE; Start 11/17/16 at 14:30 Glucose (Glutose) 15 gm Q15M PRN BUCCAL DECREASED GLUCOSE; Start 11/17/16 at 14 :30 Diagnostic Test (Pha) (Accu-Chek) 1 ea 02 XX Last administered on 11/19/16 02: 43; Admin Dose 1 EA; Start 11/18/16 at 02:00 Heparin Sodium (Porcine) (Heparin (5000 Units/0.5 ml)) 5,000 unit BID SC Last administered on 11/23/16 09:40; Admin Dose 5,000 UNIT; Start 11/18/16 at 13:30 Famotidine (Pepcid) 20 mg HS PO Last administered on 11/22/16 21:29; Admin Dose 20 MG; Start 11/18/16 at 21:00 Niacin (Niaspan) 500 mg BID PO Last administered on 11/22/16 22:25; Admin Dose 500 MG; Start 11/18/16 at 21:25 Insulin Glargine (Lantus) 24 unit DAILY@20 SC Last administered on 11/22/16 20 :29; Admin Dose 24 UNIT; Start 11/19/16 at 20:00 Ketorolac Tromethamine (Toradol) 15 mg Q6H PRN IV PAIN Last administered on 15:41; Admin Dose 15 MG; Start 11/22/16 at 19:00; Stop 11/23/16 at 18:59 BRYAN LOPEZ MD Nov 23, 2016 09:54
[2016-11-23] MEDS ORDERED: VANCOMYCIN IV PER PHARMACY XX SCH (10:00)
[2016-11-23] MEDS ORDERED: VANCOMYCIN 1.75 GM in NS 500 ML IVPB SCH (13:00)
[2016-11-23 13:03] LABS: CREATININE 1.47 mg/dl (0.61-1.24)
[2016-11-23 20:11] VITALS: BP 135/78; RESP 16
[2016-11-23] MEDS: INSULIN GLARGINE [LANtus] 3 ML PEN SC SCH (20:14)
[2016-11-23] MEDS: FAMOTIDINE 20 MG TAB PO SCH (20:15)
[2016-11-23] MEDS: QUETIAPINE 100 MG TAB PO SCH (20:16)
[2016-11-23] MEDS ORDERED: traMADol 50 MG TAB PO PRN (22:30)
[2016-11-24] MEDS: ACCU-CHEK XX SCH (02:00)
[2016-11-24] MEDS: INSULIN ASPART [NOVOLOG] 3 ML PEN SC SCH ×7 (08:00→20:44)
[2016-11-24 08:13] VITALS: BP 119/76; RESP 17
[2016-11-24] MEDS: FISH OIL 1,000 MG CAP PO SCH ×2 (09:13→20:40)
[2016-11-24] MEDS: HEPARIN 5,000 UNIT/0.5 ML VIAL SC SCH ×2 (09:14→20:39)
[2016-11-24] MEDS: metFORMIN 500 MG TAB PO SCH ×2 (09:14→17:51)
[2016-11-24] MEDS: NIACIN (ER) 500 MG TAB PO SCH ×2 (09:15→20:41)
[2016-11-24] MEDS: LEVETIRACETAM 500 MG TAB PO SCH ×2 (09:15→20:44)
[2016-11-24] MEDS: LINAGLIPTIN 5 MG TABLET PO SCH (09:15)
--- NOTE | 2016-11-24 11:16 | PN ---
Date/Time of Note Date/Time of Note DATE: 11/24/16 TIME: 11:14 Assessment/Plan VTE Prophylaxis VTE Prophylaxis Intervention: heparin Lines/Catheters IV Catheter Type (from [facility]): Peripheral IV Urinary Cath still in place: No Assessment/Plan Problems: (1) Gastroesophageal reflux disease Status: Chronic Comment: Controlled with elevation of the head of the bed Qualifiers: Esophagitis presence: without esophagitis Qualified Code: K21.9 - Gastroesophageal reflux disease without esophagitis (2) Cellulitis of left hand Status: Acute Comment: Improving with vancomycin. (3) Diabetes mellitus type 2 in nonobese Status: Chronic Comment: Adequate sugar control (4) Mixed hyperlipidemia due to type 2 diabetes mellitus Status: Chronic Comment: Stable on medication treatment (5) Seizure disorder as sequela of cerebrovascular accident Status: Chronic Comment: Stable and controlled on medication treatment Subjective 24 Hr Interval Summary Free Text/Dictation Patient sleeping in bed easily aroused Constitutional: no complaints (No fever chills or sweats) Respiratory: no complaints Cardiovascular: no complaints Gastrointestinal: no complaints Musculoskeletal: other (Complains of left hand and wrist pain but it is slightly better) Exam/Review of Systems Vital Signs Vitals Vital Signs Date Time Temp Pulse Resp B/P Pulse Ox O2 Delivery O2 Flow Rate FiO2 11/24/16 08:13 99.1 87 17 119/76 94 Intake and Output 11/23/16 11/23/16 11/24/16 15:00 23:00 07:00 Intake Total 2070 ml 1250 ml Output Total 1600 ml 2000 ml Balance 470 ml -750 ml Exam Constitutional: alert, oriented Neck: non-tender, supple Respiratory: clear to auscultation, normal air movement Cardiovascular: nl pulses, regular rate and rhythm Extremities: other (Left hand erythema and redness has improved.) Results Result Diagram: 11/23/16 1205 Results 24 hrs Laboratory Tests Test 11/23/16 11:50 11/23/16 12:05 11/23/16 17:18 11/23/16 20:07 Bedside Glucose 153 111 99 Blood Urea Nitrogen 25 H Creatinine 1.47 H Test 11/24/16 06:22 11/24/16 08:08 Bedside Glucose 126 129 Medications Medications Current Medications Carvedilol (Coreg) 6.25 mg BID PO Last administered on 11/24/16t 09:15; Admin Dose 6.25 MG; Start 11/16/16 at 21:00 Levetiracetam (Keppra) 500 mg BID PO Last administered on 11/24/16 09:15; Admin Dose 500 MG; Start 11/16/16 at 21:00 Quetiapine Fumarate (Seroquel) 200 mg HS PO Last administered on 11/23/16 20: 16; Admin Dose 200 MG; Start 11/16/16 at 21:00 Zolpidem Tartrate (Ambien) 5 mg QHS PRN PO INSOMNIA Last administered on 21:36; Admin Dose 5 MG; Start 11/16/16 at 15:00 Linagliptin (Tradjenta) 5 mg DAILY PO Last administered on 11/24/16 09:15; Admin Dose 5 MG; Start 11/17/16 at 09:00 Fish Oil 2000 mg 2,000 mg BID PO Last administered on 11/24/16 09:13; Admin Dose 2,000 MG; Start 11/17/16 at 09:00 Sodium Chloride (NS) 1,000 ml @ 75 mls/hr [id number] IV Last administered on 11/23 23:54; Admin Dose 75 MLS/HR; Start 11/17/16 at 14:30 Miscellaneous Information 1 ea NOTE XX ; Start 11/17/16 at 14:30 Glucose (Glutose) 15 gm Q15M PRN PO DECREASED GLUCOSE; Start 11/17/16 at 14:30 Glucose (Glutose) 22.5 gm Q15M PRN PO DECREASED GLUCOSE; Start 11/17/16 at 14: 30 Dextrose (D50w Syringe) 25 ml Q15M PRN IV DECREASED GLUCOSE; Start 11/17/16 at 14:30 Dextrose (D50w Syringe) 50 ml Q15M PRN IV DECREASED GLUCOSE; Start 11/17/16 at 14:30 Glucagon (Glucagen) 1 mg Q15M PRN IM DECREASED GLUCOSE; Start 11/17/16 at 14:30 Glucose (Glutose) 15 gm Q15M PRN BUCCAL DECREASED GLUCOSE; Start 11/17/16 at 14 :30 Diagnostic Test (Pha) (Accu-Chek) 1 ea 02 XX Last administered on 11/19/16 02: 43; Admin Dose 1 EA; Start 11/18/16 at 02:00 Heparin Sodium (Porcine) (Heparin (5000 Units/0.5 ml)) 5,000 unit BID SC Last administered on 11/24/16 09:14; Admin Dose 5,000 UNIT; Start 11/18/16 at 13:30 Famotidine (Pepcid) 20 mg HS PO Last administered on 11/23/16 20:15; Admin Dose 20 MG; Start 11/18/16 at 21:00 Niacin (Niaspan) 500 mg BID PO Last administered on 11/24/16 09:15; Admin Dose 500 MG; Start 11/18/16 at 21:25 Insulin Glargine 24 unit 24 unit DAILY@20 SC Last administered on 11/23/16 20: 14; Admin Dose 24 UNIT; Start 11/19/16 at 20:00 Vancomycin HCl/ Sodium Chloride (Vancocin/NS) 250 ml @ 83.333 mls/ hr Q24H IVPB ; Start 11/24/16 at 13:00 Tramadol HCl (Ultram) 50 mg Q6H PRN PO PAIN; Start 11/23/16 at 22:30 BRYAN LOPEZ MD Nov 24, 2016 11:16
[2016-11-24] MEDS: CELECOXIB 100 MG CAP PO SCH ×2 (12:06→20:43)
[2016-11-24] MEDS: VANCOMYCIN 1.25 GM in SOD CHLORIDE 0.9% 250 ML IVPB SCH (12:08)
[2016-11-24] MEDS: SOD CHLORIDE 0.9% 1,000 ML IV SCH (16:42)
[2016-11-24] MEDS: INSULIN GLARGINE [LANtus] 3 ML PEN SC SCH (20:38)
[2016-11-24] MEDS: QUETIAPINE 100 MG TAB PO SCH (20:42)
[2016-11-24] MEDS: FAMOTIDINE 20 MG TAB PO SCH (20:42)
[2016-11-24 21:12] VITALS: BP 165/95; RESP 18
[2016-11-25] MEDS: ACCU-CHEK XX SCH (02:00)
[2016-11-25] MEDS: SOD CHLORIDE 0.9% 1,000 ML IV SCH (06:37)
[2016-11-25] MEDS: INSULIN ASPART [NOVOLOG] 3 ML PEN SC SCH ×7 (07:52→21:00)
[2016-11-25] MEDS: metFORMIN 500 MG TAB PO SCH ×2 (08:00→17:39)
[2016-11-25 08:08] VITALS: BP 131/79; RESP 18
[2016-11-25] MEDS: FISH OIL 1,000 MG CAP PO SCH ×2 (08:15→21:26)
[2016-11-25] MEDS: NIACIN (ER) 500 MG TAB PO SCH ×2 (08:15→21:25)
[2016-11-25] MEDS: LEVETIRACETAM 500 MG TAB PO SCH ×2 (08:16→21:26)
[2016-11-25] MEDS: CELECOXIB 100 MG CAP PO SCH ×2 (08:16→21:28)
[2016-11-25] MEDS: LINAGLIPTIN 5 MG TABLET PO SCH (08:16)
[2016-11-25] MEDS: HEPARIN 5,000 UNIT/0.5 ML VIAL SC SCH ×2 (08:18→21:23)
[2016-11-25] MEDS: VANCOMYCIN 1.25 GM in SOD CHLORIDE 0.9% 250 ML IVPB SCH (12:09)
--- NOTE | 2016-11-25 19:02 | PN ---
DATE: 11/25/2016 INTERNAL MEDICINE FOLLOW UP SUBJECTIVE: Chart reviewed. Left hand appears to have less swelling now and overall the patient lo oking better; however, there is an area of excoriation noted in the scalp on the left temporal area. PHYSICAL EXAMINATION: VITAL SIGNS: Blood pressure 131/79, pulse 78, respiration 18, temperature 98.3, saturating 95%. HEENT: Pupils are equal and reactive to light. NECK: Supple, no JVD noted, no cervical adenopathy noted, no carotid bruits heard. LUNGS: Fair breath sounds bilaterally. CARDIOVASCULAR: S1, S2 normal. ABDOMEN: Soft, nontender, obese. No organomegaly or masses noted. EXTREMITIES: No clubbing, cyanosis, or edema noted. Left hand area appears less swollen. LABORATORY DATA: Sugars are in the range of about 115 to 99. IMPRESSION: 1. Status post hyperosmolar nonketotic hyperglycemic state, now resolved. Sugars are now well cont rolled. 2. History of diabetes mellitus type 2. 3. Left hand cellulitis, improving. 4. History of cerebrovascular accident. 5. Status post right [id number] amputation. 6. Chronic seizure disorder. 7. Chronic dyslipidemia. 8. Chronic depression. RECOMMENDATIONS: 1. Continue current treatment. 2. Wound care eval. 3. Most likely the patient can go home tomorrow with home health followup and continued antibiotics . Above discussed with the staff. Dictated By: SHAYNA LAU MD, MA/DAVIE Conf#: [id number] DID#: [id number]
[2016-11-25 19:55] VITALS: BP 151/83; RESP 20
[2016-11-25] MEDS: INSULIN GLARGINE [LANtus] 3 ML PEN SC SCH (21:21)
[2016-11-25] MEDS: QUETIAPINE 100 MG TAB PO SCH (21:25)
[2016-11-25] MEDS: FAMOTIDINE 20 MG TAB PO SCH (21:25)
[2016-11-26] MEDS: ACCU-CHEK XX SCH (02:00)
[2016-11-26] MEDS: SOD CHLORIDE 0.9% 1,000 ML IV SCH ×2 (05:58→09:10)
[2016-11-26 06:55] LABS: CREATININE 1.33 mg/dl (0.61-1.24)
[2016-11-26] MEDS: INSULIN ASPART [NOVOLOG] 3 ML PEN SC SCH ×6 (08:00→17:40)
[2016-11-26 08:01] VITALS: BP 129/83; RESP 18
[2016-11-26] MEDS: NIACIN (ER) 500 MG TAB PO SCH (08:11)
[2016-11-26] MEDS: FISH OIL 1,000 MG CAP PO SCH (08:11)
[2016-11-26] MEDS: LEVETIRACETAM 500 MG TAB PO SCH (08:11)
[2016-11-26] MEDS: CELECOXIB 100 MG CAP PO SCH (08:11)
[2016-11-26] MEDS: LINAGLIPTIN 5 MG TABLET PO SCH (08:11)
[2016-11-26] MEDS: metFORMIN 500 MG TAB PO SCH ×2 (08:11→17:37)
[2016-11-26] MEDS: HEPARIN 5,000 UNIT/0.5 ML VIAL SC SCH (08:12)
[2016-11-26] MEDS: VANCOMYCIN 1.25 GM in SOD CHLORIDE 0.9% 250 ML IVPB SCH (14:37)
[2016-11-26] MEDS ORDERED: LINA5TAB PO (15:26)
[2016-11-26] MEDS ORDERED: NOVO3I SC ×2 (15:26)
[2016-11-26] MEDS ORDERED: LANT3I SC (15:26)
[2016-11-26] MEDS ORDERED: METF500T PO (15:26)
--- NOTE | 2016-11-26 15:33 | DS ---
Date/Time of Note Date/Time of Note DATE: 11/26/16 TIME: 15:27 Discharge Summary Admission/Discharge Info Admit Date/Time Nov 16, 2016 at 17:09 Discharge Date/Time Final Diagnosis 1. Hyperosmolar non ketotic hyperglycemic state, resolved 2. DM, stable, on oral and lantus 3. CVA with h/o stroke x2, with right side weakness 4. s/p right BKA 5. Chronic Seizure disorder, on keppra 6. Chronic dyslipidemia, on statin 7. Chronic depression, stable 8. JESUSITA r/o CKD, improving, follow up with PCP Hx of Present Illness This is 66-year-old male with a history of diabetes mellitus type 2, hypertension, seizures, GERD, CVA with right-sided deficit of previous craniotomy brought to the ED via ambulance from [facility] for worsening right-sided weakness and difficulty speaking. Staff members told paramedics that he is not speaking normally. Patient denies any headache or visual changes. No neck or back pain. No chest pain or palpitations. No shortness of breath or cough. Denies abdominal pain, nausea vomiting. No dysuria or polyuria. No fevers or chills. Patient was also found to be significantly hyperglycemic in ER. Patient is quite aphasic and while he can communicate slightly is unable to give a detailed history. Hospital Course Patient is diagnosed with hyperosmolar hyperglycemic states with blood glucose 916 on admission, acute on chronic renal failure with BUN/Cr 54/2.49. Patient is put on insulins, that significantly improved his blood glucose and mental status. Blood glucose was 115 this morning. BUN/Cr down to 35/1.33. Home Meds Active Scripts Metformin Hcl (Glucophage) 500 Mg Tablet, 500 MG PO AC BREAKFAST DINNER for 30 Days, TAB Prov:IWONA ACKERMAN MD 11/26/16 Linagliptin (TRADJENTA) 5 Mg Tablet, 5 MG PO DAILY for 30 Days, TAB Prov:IWONA ACKERMAN MD 11/26/16 Insulin Glargine* (Lantus*) 100 Unit/Ml Soln, 24 UNIT SC DAILY@20 for 30 Days Prov:IWONA ACKERMAN MD 11/26/16 Insulin Aspart* (Novolog Insulin Pen*) 100 Unit/Ml Soln, 8 UNIT SC WITH MEALS for 30 Days Prov:IWONA ACKERMAN MD 11/26/16 Insulin Aspart* (Novolog Insulin Pen*) 100 Unit/Ml Soln, 0 UNIT SC WITH MEALS BEDTIME for 30 Days Prov:IWONA ACKERMAN MD 11/26/16 Reported Medications Quetiapine Fumarate* (Quetiapine Fumarate*) 200 Mg Tablet, 200 MG PO HS, TAB 11/16/16 Omeprazole* (Omeprazole*) 20 Mg Capsule.dr, 20 MG PO DAILY, #30 CAP 11/16/16 Levetiracetam* (Keppra*) 500 Mg Tablet, 500 MG PO BID, TAB 11/16/16 Carvedilol* (Carvedilol*) 6.25 Mg Tablet, 6.25 MG PO BID, #60 TAB 11/16/16 Levetiracetam* (Keppra*) 500 Mg Tablet, 500 MG PO BID, TAB 11/16/16 Niacin* (Niacin*) 500 Mg Tablet, 500 MG PO BID, TAB 11/16/16 Zolpidem Tartrate* (Zolpidem Tartrate*) 5 Mg Tablet, 5 MG PO QHS Y for INSOMNIA , #30 TAB 11/16/16 Discontinued Reported Medications Glipizide* (Glipizide*) 10 Mg Tablet, 10 MG PO BID, TAB 11/16/16 Follow-up Plan PCP in one week Pending Labs Laboratory Tests Test 11/25/16 16:58 11/25/16 21:13 11/26/16 05:25 11/26/16 08:08 Bedside Glucose 110mg/dL (70-220) 139mg/dL (70-220) 115mg/dL (70-220) Blood Urea Nitrogen 35mg/dl (7-20) Creatinine 1.33mg/dl (0.61-1.24) Test 11/26/16 11:45 11/26/16 12:10 Bedside Glucose 176mg/dL (70-220) Vancomycin Level Trough 13.3ug/ml (10.0-20.0) Microbiology Date/Time Source Procedure Growth Status 11/25/16 16:00 Head Gram Stain - Final Resulted 11/25/16 16:00 Head Wound Culture - Preliminary Resulted IWONA ACKERMAN MD November 26, 2016 15:33
== END 2016-11-26 20:14 | DRG 637 ==
LOC: E/R 12:54 → PP2 17:09 → UNDOADMIN 11-17 12:04
PROVIDERS: ADMIT Family Medicine; ATTEND Family Medicine
DX: E11.65 Type 2 diabetes mellitus with hyperglycemia (principal); G93.40 Encephalopathy, unspecified; N17.9 Acute kidney failure, unspecified; E87.0 Hyperosmolality and hypernatremia; I69.351 Hemiplegia and hemiparesis following cerebral infarction affecting right dominant side; L03.114 Cellulitis of left upper limb; E86.0 Dehydration; I69.920 Aphasia following unspecified cerebrovascular disease; Z89.511 Acquired absence of right leg below knee; G40.909 Epilepsy, unspecified, not intractable, without status epilepticus; F32.9 Major depressive disorder, single episode, unspecified; I10 Essential (primary) hypertension; K21.9 Gastro-esophageal reflux disease without esophagitis; Z98.890 Other specified postprocedural states; K59.00 Constipation, unspecified; I69.998 Other sequelae following unspecified cerebrovascular disease; E11.69 Type 2 diabetes mellitus with other specified complication; E78.2 Mixed hyperlipidemia
CPT/HCPCS: 36415; 70450; 71010; 80048; 80053; 80061; 80202; 80307; 81001; 81003; 82550; 82565; 82947; 82962; 83036; 83735; 83930; 84443; 84484; 84520; 84560; 85025; 85610; 85651; 85730; 87040; 87070; 93005; 93306; 93880; 93971; 96361; 96372; 96374; 96375; 96376; 97162; 97530; J1644; J1650; J1815; J1885; J3370; J7030; J7040; J7050; J7120

== ENCOUNTER 2017-05-02 10:06 | Inpatient (IN) | payer MEDICARE, OTHER ==
[~2017-05-02] VITALS: Ht 172.7 cm; Wt 86.6 kg
[~2017-05-02 10:06] MED LIST: CARV6.2579 PO; LANT3I SC; LEVE-5 PO; LINA5TAB PO; METF500T PO; NIAC500T81 PO; NOVO3I SC; OMEP20CA16 PO; QUET200T27 PO; ZOLP5TAB7 PO
[2017-05-02] MEDS ORDERED: SODIUM CHLORIDE 0.9% 1L BAG IV* STA (10:11)
[2017-05-02 10:38] LABS: ABNORMAL IP MESSAGE 1; BASOPHIL # 0.1 10^3/ul (0.0-0.1); HEMATOCRIT 45.3 % (42.0-52.0); HEMOGLOBIN 15.6 g/dl (14.0-18.0); LYMPHOCYTES # 0.9 10^3/ul (0.8-2.9); MEAN CORPUSCULAR HEMOGLOBIN 32.1 pg (29.0-33.0); MEAN CORPUSCULAR HGB CONC 34.4 g/dl (32.0-37.0); MEAN CORPUSCULAR VOLUME 93.2 fl (82.0-101.0); MEAN PLATELET VOLUME 10.6 fl (7.4-10.4); MONOCYTE # 1.4 10^3/ul (0.3-0.9); NEUTROPHIL # 16.4 10^3/ul (1.6-7.5); PLATELET COUNT 98 10^3/UL (140-415); RED BLOOD COUNT 4.86 10^6/ul (4.70-6.10); RED CELL DISTRIBUTION WIDTH 14.8 % (11.5-14.5); WHITE BLOOD COUNT 18.9 10^3/ul (4.8-10.8)
--- NOTE | 2017-05-02 10:38 | RADRPT ---
PROCEDURE: Chest x-ray CLINICAL INDICATION: Shortness of breath TECHNIQUE: Chest single view COMPARISON: 11/16/2016 FINDINGS: There is interval placement right arm PICC line with tip at the right atrial SVC junction. Stable mi ld cardiomegaly seen. The pulmonary vessels normal in caliber. Lung volumes are low with linear biba silar atelectasis. Costophrenic angles are sharp. Bony thorax is unremarkable. IMPRESSION: 1. Interval placement right arm PICC line. 2. Stable mild cardiomegaly. No CHF. 3. Low lung volumes with linear bibasilar atelectasis RPTAT: HH .Ryder Sharp MD, Date Time Electronically viewed and signed by .Ryder Sharp MD, on 05/02/2017 10:37 .W/
[2017-05-02 10:52] LABS: INR 1.4; PROTIME 17.2 Sec (12.2-14.2); PT RATIO 1.3
[2017-05-02 10:53] LABS: PARTIAL THROMBOPLASTIN TIME 34.3 Sec (25.0-35.0)
[2017-05-02 10:55] LABS: ALBUMIN 3.8 g/dl (3.3-4.9); ALBUMIN/GLOBULIN RATIO 1.11; CALCIUM 8.6 mg/dl (8.4-10.2); CREATININE 5.55 mg/dl (0.61-1.24); POTASSIUM 4.7 mmol/L (3.5-5.1); TOTAL PROTEIN 7.2 g/dl (6.1-8.1)
[2017-05-02 11:30] LABS: TROPONIN-I 0.163 ng/ml (0.00-0.12)
[2017-05-02] MEDS ORDERED: CEFEPIME 1GM/50 ML (PMX) 50 ML IVPB ONE (11:30)
--- NOTE | 2017-05-02 11:32 | RADRPT ---
PROCEDURE: CT Abdomen and Pelvis without contrast. CLINICAL INDICATION: Distension. Sepsis. Constipation TECHNIQUE: CT scan of the abdomen and pelvis without contrast was performed on a multidetector hig h-resolution CT scanner. The patient was scanned without intravenous contrast. Coronal and sagittal reformatted images were obtained from the axial source images. Images were reviewed on a high-resol [employer] PACS workstation. The total exam CTDI equals 16.64 mGy and the total exam DLP equals 1206.52 m Gy-cm. One or more of the following dose reduction techniques were used: Automated exposure control. Adjustment of the mA and/or kV according to patient size. Use of iterative reconstruction technique. COMPARISON: None FINDINGS: CT abdomen: The lung bases are remarkable for bibasilar atelectasis and linear pleuroparenchymal scarring. There is trace right pleural effusion.. The heart size is normal, without pericardial thickening or effu heike. There is mild fatty infiltration of the liver. The spleen is normal in size and homogeneous in dens ity. The stomach is partially collapsed, but is grossly unremarkable. There is diffuse enlargement of the pancreas with extensive peripancreatic inflammatory changes in k eeping with acute pancreatitis. Small amount of free fluid is seen along the bilateral anterior and lateral pararenal spaces. There is no organized peripancreatic fluid collection. The gallbladder is unremarkable. There is no evidence for biliary dilatation. The adrenal glands are symmetric and nor mal. There is approximately 10 x 11 cm indeterminate cystic lesion with wall calcifications and intramura l densities in the lower pole left kidney. There are additional smaller cystic lesions in bilateral kidneys. There are a few small 2-3 mm nonobstructing renal stones. There is no ureteral stone. There is no hydronephrosis. The aorta is of normal caliber. Aortic vascular calcifications are present. There is no retroperit lackey lymphadenopathy. The gauri hepatis region is clear. There are mildly dilated multiple loops o f small bowel without discrete transition point. CT pelvis: The small bowel loops situated within the pelvis are unremarkable. The pelvic organs are normal. T he pelvic sidewalls and inguinal regions are clear. The sigmoid colon and rectum are unremarkable. No mass, lymphadenopathy, or free fluid is seen. No acute inflammation is seen. The surrounding o sseous structures are remarkable for degenerative spondylosis of the spine. No osteolytic or osteob lastic lesion is detected. Disc height loss, discogenic endplate changes and prominent Schmorl's nod es are seen at L2-L3. IMPRESSION: 1. Diffusely enlarged pancreas with surrounding extensive inflammatory changes in keeping with acut e pancreatitis. Small amount of fluid/inflammatory changes along the pararenal spaces with no locula melinda peripancreatic fluid collection. 2. Indeterminate large left renal lesion measuring 10 x 11 cm which demonstrate punctate wall calci fications and internal densities. Recommend CT or MRI with contrast per renal mass protocol. Multipl e additional smaller renal cysts are also noted. 3. Mildly dilated multiple loops of small bowel with air-fluid levels without discrete transition p oint. This could represent ileus versus early/partial small bowel obstruction. 4. Small nonobstructing bilateral renal stones. No hydronephrosis. 5. Small right pleural effusion and bibasilar atelectasis. 6. Aortoiliac atherosclerosis. RPTAT: BB .Sridhar Sandhu MD, MD Date Time Electronically viewed and signed by .Sridhar Sandhu MD, on 05/02/2017 11:31 .O/
[2017-05-02 11:50] LABS: ANISOCYTOSIS 1+ (0-0); BURR CELLS 2+ (0-0); METAMYELOCYTES %M 1 % (0-0); MONOCYTES % (M) 7 % (0-11); PLATELET ESTIMATE DECREASED; POIKILOCYTOSIS 3+ (0-0); POLYCHROMASIA 2+ (0-0)
[2017-05-02 11:53] LABS: POSITIVE DIFF Y
[2017-05-02 13:10] LABS: ADD UMIC YES; UR AMORPHOUS CRYSTAL FEW /HPF (NONE SEEN); UR ASCORBIC ACID NEGATIVE (NEGATIVE); UR BACTERIA FEW /HPF (NONE SEEN); UR BILIRUBIN (Dip) NEGATIVE (NEGATIVE); UR BLOOD (Dip) 1+ mg/dL (NEGATIVE); UR CLARITY SLIGHTLY CLOUDY (CLEAR); UR COLOR YELLOW (YELLOW); UR GLUCOSE (Dip) 1+ mg/dL (NEGATIVE); UR KETONES (Dip) NEGATIVE (NEGATIVE); UR LEUKOCYTE ESTERASE (Dip) NEGATIVE Leu/ul (NEGATIVE); UR NITRITE (Dip) NEGATIVE (NEGATIVE); UR RBC 2 /HPF (0-5); UR SPECIFIC GRAVITY (Dip) 1.014 (1.003-1.030); UR TOTAL PROTEIN (Dip) 2+ mg/dl (NEGATIVE); UR UROBILINOGEN (Dip) NEGATIVE (NEGATIVE)
[2017-05-02] MEDS ORDERED: ASPI81TA3 PO (13:22)
[2017-05-02] MEDS ORDERED: DOCU250C58 PO (13:23)
[2017-05-02] MEDS ORDERED: DOXY-220 PO (13:23)
[2017-05-02] MEDS ORDERED: LEVEM SC (13:24)
[2017-05-02] MEDS ORDERED: LOSA50TA6 PO (13:25)
[2017-05-02] MEDS ORDERED: LORA0.5T PO (13:25)
[2017-05-02] MEDS ORDERED: INSULIN REGULAR 10 ML INJ IV STA (13:28)
[2017-05-02] MEDS ORDERED: ASPIRIN 81 MG TAB PO ONE (13:30)
--- NOTE | 2017-05-02 13:43 | ERA ---
ER Documentation Chief Complaint Date/Time DATE: 05/02/17 TIME: 13:17 Chief Complaint BROUGHT IN VIA PRIVATE AMBULANCE DUE TO CONSTIPATION HPI 67-year-old male who comes emergency room for constipation from his intermediate facility however his heart rate the paramedics arrived was in the 140s and his blood pressure was low. He states that he only has diffuse abdominal pain and requests an enema. Denies having fever and chills. Denies chest pain shortness of breath. ROS All systems reviewed and are negative except as per history of present illness. Medications Home Meds Active Scripts Metformin Hcl (Glucophage) 500 Mg Tablet, 500 MG PO AC BREAKFAST DINNER for 30 Days, TAB Prov:IWONA ACKERMAN MD 11/26/16 Linagliptin (TRADJENTA) 5 Mg Tablet, 5 MG PO DAILY for 30 Days, TAB Prov:IWONA ACKERMAN MD 11/26/16 Insulin Glargine* (Lantus*) 100 Unit/Ml Soln, 24 UNIT SC DAILY@20 for 30 Days Prov:IWONA ACKERMAN MD 11/26/16 Insulin Aspart* (Novolog Insulin Pen*) 100 Unit/Ml Soln, 8 UNIT SC WITH MEALS for 30 Days Prov:IWONA ACKERMAN MD 11/26/16 Insulin Aspart* (Novolog Insulin Pen*) 100 Unit/Ml Soln, 0 UNIT SC WITH MEALS BEDTIME for 30 Days Prov:IWONA ACKERMAN MD 11/26/16 Reported Medications Quetiapine Fumarate* (Quetiapine Fumarate*) 200 Mg Tablet, 200 MG PO HS, TAB 11/16/16 Omeprazole* (Omeprazole*) 20 Mg Capsule.dr, 20 MG PO DAILY, #30 CAP 11/16/16 Levetiracetam* (Keppra*) 500 Mg Tablet, 500 MG PO BID, TAB 11/16/16 Carvedilol* (Carvedilol*) 6.25 Mg Tablet, 6.25 MG PO BID, #60 TAB 11/16/16 Levetiracetam* (Keppra*) 500 Mg Tablet, 500 MG PO BID, TAB 11/16/16 Niacin* (Niacin*) 500 Mg Tablet, 500 MG PO BID, TAB 11/16/16 Zolpidem Tartrate* (Zolpidem Tartrate*) 5 Mg Tablet, 5 MG PO QHS Y for INSOMNIA , #30 TAB 11/16/16 Allergies Allergies: Coded Allergies: No Known Allergy (Unverified , 11/16/16) PMhx/Soc History of Surgery: Yes (RT AKA--2004,Lt LEG FX fixed) Anesthesia Reaction: No Hx Neurological Disorder: Yes (S/P CVA) Hx Respiratory Disorders: No Hx Cardiac Disorders: No Hx Psychiatric Problems: Yes (Bipolar) Hx Miscellaneous Medical Probl: Yes (RBKA,expressive aphasia, encephalopathy, seizure,DM) Hx Alcohol Use: No Hx Substance Use: No Hx Tobacco Use: No Smoking Status: Never smoker Physical Exam Vitals Vital Signs Date Time Temp Pulse Resp B/P Pulse Ox O2 Delivery O2 Flow Rate FiO2 05/02/17 10:19 Nasal Cannula 2 05/02/17 10:10 98.0 140 18 85/61 92 Physical Exam Const: [] Mild distress Head: Atraumatic Eyes: Normal Conjunctiva ENT: Normal External Ears, Nose and Mouth. Neck: Full range of motion..~ No meningismus. Resp: Clear to auscultation bilaterally Cardio: Regular tachycardia, no murmurs Abd: Soft, mild diffuse tenderness, non distended. Normal bowel sounds Skin: No petechiae or rashes Back: No midline or flank tenderness Ext: No cyanosis, mild bilateral pedal edema. Neur: Awake and alert and oriented 3, no focal deficits Psych: Normal Mood and Affect Result Diagram: 05/02/17 1017 05/02/17 1017 Results 24 hrs Laboratory Tests Test 05/02/17 10:17 05/02/17 12:10 05/02/17 12:30 White Blood Count 18.910^3/ul Red Blood Count 4.8610^6/ul Hemoglobin 15.6g/dl Hematocrit 45.3% Mean Corpuscular Volume 93.2fl Mean Corpuscular Hemoglobin 32.1pg Mean Corpuscular Hemoglobin Concent 34.4g/dl Red Cell Distribution Width 14.8% Platelet Count 9810^3/UL Mean Platelet Volume 10.6fl Neutrophils % 63.0% Segmented Neutrophils % (Manual) 63% Band Neutrophils % (Manual) 26% Lymphocytes % 3.0% Lymphocytes % (Manual) 3% Monocytes % 7.0% Monocytes % (Manual) 7% Eosinophils % 0.0% Basophils % 0.0% Metamyelocytes % (manual) 1% Nucleated Red Blood Cells % 0.0/100WBC Neutrophils # 16.410^3/ul Neutrophils # (Manual) 16.810^3/ul Band Neutrophils # 26.010^3/ul Absolute Lymphocytes (Manual) 0.510^3/ul Lymphocytes # 0.910^3/ul Monocytes # 1.410^3/ul Absolute Monocytes (Manual) 1.310^3/ul Eosinophils # 0.010^3/ul Basophils # 0.110^3/ul Metamyelocytes # 0.110^3/ul Nucleated Red Blood Cells # 0.010^3/ul Platelet Estimate DECREASED Polychromasia 2+ Poikilocytosis 3+ Anisocytosis 1+ Prothrombin Time 17.2Sec Prothrombin Time Ratio 1.3 INR International Normalized Ratio 1.40 Activated Partial Thromboplast Time 34.3Sec Sodium Level 139mmol/L Potassium Level 4.7mmol/L Chloride Level 107mmol/L Carbon Dioxide Level 13mmol/L Anion Gap 24 Blood Urea Nitrogen 77mg/dl Creatinine 5.55mg/dl Glucose Level 452mg/dl Lactic Acid Level 4.5mmol/L 3.5mmol/L Calcium Level 8.6mg/dl Total Bilirubin 1.0mg/dl Direct Bilirubin 0.00mg/dl Indirect Bilirubin 1.0mg/dl Aspartate Amino Transf (AST/SGOT) 84IU/L Alanine Aminotransferase (ALT/SGPT) 37IU/L Alkaline Phosphatase 96IU/L Troponin I 0.163ng/ml Total Protein 7.2g/dl Albumin 3.8g/dl Globulin 3.40g/dl Albumin/Globulin Ratio 1.11 Urine Color YELLOW Urine Clarity SLIGHTLY CLOUDY Urine pH 5.0 Urine Specific Cerulean 1.014 Urine Ketones NEGATIVEmg/dL Urine Nitrite NEGATIVEmg/dL Urine Bilirubin NEGATIVEmg/dL Urine Urobilinogen NEGATIVEmg/dL Urine Leukocyte Esterase NEGATIVELeu/ul Urine Microscopic RBC 2/HPF Urine Microscopic WBC 2/HPF Urine Amorphous Crystals FEW/HPF Urine Bacteria FEW/HPF Urine Hemoglobin 1+mg/dL Urine Glucose 1+mg/dL Urine Total Protein 2+mg/dl Current Medications Medications (Trade) Dose Ordered Sig/Steve Route PRN Reason Start Time Stop Time Status Last Admin Dose Admin Sodium Chloride 2480 ml 2,480 ml BOLUS OVER 2 HOURS STAT IV* 05/02/17 10:11 05/02/17 10:16 DC 05/02/17 10:20 Cefepime HCl (Maxipime 1gm/50 ml (Pmx)) 50 ml @ 100 mls/hr ONCE ONCE IVPB 05/02/17 11:30 05/02/17 11:59 DC 05/02/17 11:30 Aspirin (Aspirin) 324 mg ONCE ONCE PO 05/02/17 13:30 05/02/17 13:31 Procedures/MDM 67-year-old male with sepsis from unclear source and pancreatitis accompanied by mild DKA with CO2 of 13 and an anion gap of 20. There is some bacteria found in his catheterization urine so UTI is a likely source of infection.. Also with acute kidney injury with significant renal failure and markedly elevated lactic acidosis with significant hyperglycemia. Also possible bowel obstruction. Was given 30 cc/kg of IV fluid is started on the insulin drip. He is given cefepime empirically. EKG interpretation: Sinus tachycardia rate of 137, normal axis, no ST or T-wave changes concerning for acute ischemia, normal intervals. Date monitor interpretation: Sinus tachycardia improved with fluids Chest x-ray interpretation: I see no acute process, see no infiltrates, no pulmonary edema, no pneumothorax, no fractures CT abdomen pelvis interpretation: The care time greater than 35 minutes: This includes treatment of DKA and sepsis , careful fluid administration, empiric antibiotic therapy, chart review , multiple visits patient's bedside to reassess status, use of insulin drip, discussion with patient and admitting doctor. This does not include any billable procedures. Perfusion Reassessment for Septic Shock: Time 1257 Temp 98.0, Pulse 122, RR 20, BP 116/56 Heart Exam: [Tachycardic] Lung Exam: [No Crackles] Capillary Refill: [Less than 1 second] Peripheral Pulses: [Radially present] Skin: [Within normal limits] Departure Diagnosis: Primary Impression: Severe sepsis Additional Impressions: DKA (diabetic ketoacidoses) Pancreatitis Condition: Critical BRYAN MINOR DO May 02, 2017 13:27
[2017-05-02 13:55] LABS: CALCIUM 8.1 mg/dl (8.4-10.2); CREATININE 5.4 mg/dl (0.61-1.24); POTASSIUM 4.4 mmol/L (3.5-5.1)
[2017-05-02] MEDS ORDERED: QUET300T13 PO ×2 (14:02→14:09)
[2017-05-02] MEDS ORDERED: SENN-53 PO (14:02)
[2017-05-02] MEDS ORDERED: PANT40TA3 PO (14:02)
[2017-05-02] MEDS ORDERED: SITA25TA3 PO (14:03)
[2017-05-02] MEDS ORDERED: ONDA4TAB8 PO (14:10)
[2017-05-02] MEDS ORDERED: NORepinephrine 8MG/250 ML (PMX 250 ML ONE (15:17)
[2017-05-02] MEDS ORDERED: NORepinephrine 8MG/250 ML (PMX 250 ML IV SCH ×3 (15:30→19:00)
[2017-05-02] MEDS ORDERED: INSULIN HUMAN REGULAR 100 UNIT in SOD CHLORIDE 0.9% 99 ML IV SCH ×2 (15:30→20:00)
[2017-05-02] MEDS ORDERED: SOD CHLORIDE 0.9% 1,000 ML IV ONE ×2 (17:00→20:00)
[2017-05-02 17:18] LABS: CALCIUM 8.1 mg/dl (8.4-10.2); CREATININE 5.98 mg/dl (0.61-1.24); POTASSIUM 4.1 mmol/L (3.5-5.1)
[2017-05-02 18:03] LABS: MODE MASK - NRB; MetHgb Venous 0.8 %; Sample Type Blood venous; Venous COHb 0.7 %; Venous Total Hemglobin 15.2 g/dl
--- NOTE | 2017-05-02 18:15 | RADRPT ---
PROCEDURE: US Abdomen (right upper quadrant). CLINICAL INDICATION: Right upper quadrant abdomen pain. Pancreatitis. TECHNIQUE: Multiple real-time longitudinal and transverse images of the right upper quadrant of th e abdomen were acquired utilizing a curved array transducer. Images were reviewed on a high-resoluti on PACS workstation. COMPARISON: CT scan of the abdomen and pelvis done earlier the same day. FINDINGS: The liver is normal in size and normal in echogenicity. There is no focal hepatic lesion. Color Doppler and pulsed Doppler sonography demonstrate normal a ntegrade flow in the portal vein. The gallbladder is normal with no stones or wall thickening. There is no pericholecystic fluid siobhan ection. The bile ducts are normal with the common bile duct measuring mm in diameter. The pancreas is not visualized due to overlying bowel gas. There is a small amount of free fluid. The right kidney measures 9.9 x 5.7 x 4.4 cm. There is diffusely increased echogenicity of the righ t kidney. There is no perinephric fluid collection. No hydronephrosis, mass, or calculus is seen. IMPRESSION: 1. Pancreas not visualized. 2. Small amount of free fluid. 3. Hyperechoic right kidney which may indicate medical renal disease. 4. Otherwise unremarkable study. RPTAT: QQ .Ric Walker MD, MD Date Time Electronically viewed and signed by .Ric Walker MD, MD on 05/02/2017 18:14 .R/
[2017-05-02] MEDS: SOD CHLORIDE 0.9% 1,000 ML IV SCH (18:42)
[2017-05-02] MEDS ORDERED: DEXTROSE 50% 50 ML SYRINGE IV PRN ×2 (19:00)
[2017-05-02] MEDS ORDERED: VANCOMYCIN IV PER PHARMACY XX SCH (19:00)
[2017-05-02] MEDS ORDERED: HYDROmorphONE 1 MG/ML SYG IV PRN (19:00)
[2017-05-02] MEDS ORDERED: ALBUTEROL/IPRATROPIUM (NEB) 3 ML AMP NEB PRN (19:00)
[2017-05-02] MEDS ORDERED: VANCOMYCIN 1 GM in NS 250 ML IVPB SCH (19:30)
[2017-05-02] MEDS: ACCU-CHEK XX SCH ×5 (19:45→23:00)
[2017-05-02] MEDS: MEROPENEM 1 GM/50ML(PMX) 50 ML IVPB SCH (20:00)
[2017-05-02 20:12] LABS: AADO2 Arterial 255.9 mmHg (7.0-24.0); Arterial Base Excess -15.1 mmol/L (-3.0-3); Arterial COHb 0.3 % (0.0-3.0); Arterial Fraction of Oxyhgb 97.4 % (93.0-99.0); Arterial HCO3 10.3 mmol/L (22.0-26.0); Arterial MetHb 0.9 % (0.0-1.5); Arterial Total Hemglobin 14.8 g/dl (12.0-18.0); Blood Gas IEPAP 15/5; MODE MASK - BIPAP
[2017-05-02 20:48] LABS: CREATININE 6.18 mg/dl (0.61-1.24); POTASSIUM 4.2 mmol/L (3.5-5.1)
--- NOTE | 2017-05-02 23:47 | CONS ---
Date/Time of Note Date/Time of Note DATE: 05/02/17 TIME: 23:47 Assessment/Plan Assessment/Plan Chief Complaint/Hosp Course 1. Abdominal pain: CT with ?sbo (doubt) vs. ileus and pancreatitis; pt with + flatus -npo -IV fluids -trend labs -check triglycerides -ngt if nauseated or uncomfortable -pain management 2. Sepsis with lactic acidosis: ? source; on pressors -supportive -hannon culture 3. Pancreatitis: labs improving -as above 4. ARF: decreased uop -judicious fluids -avoid nephrotoxic meds 5. Metabolic acidosis: -medical management 6. Uncontrolled Diabetes -optimize sugar control 7. Constipation -optimize bowel regimen Thank you. Patient seen and examined in collaboration with Dr. Jerome Marie. Problems: Consultation Date/Type/Reason Admit Date/Time Type of Consultation: SURGICAL Reason for Consultation ?bowel obstruction Referring Provider: BRYAN MINOR DO Hx of Present Illness Fernando Jhaveri is a 67 yo man with multiple comorbidities and an extensive medical history. He presents to the ED with c/o abdominal pain and feeling of constipation. Work up in the ED showed a septic picture with elevated lactic acidosis, tachycardia, elevated blood glucose and need of pressor support. He is admitted to the ICU for further treatment. He denies, fevers, chills, myalgias, sob, congested cough, n/v/d/dysuria. CT abdomen showed multiple air fluid level filled loops of small bowel and general surgery was asked to evaluate. Constitutional: No chills, No febrile Eyes: No discharge, No visual change ENT: No congestion Respiratory: No cough, No shortness of breath Cardiovascular: No chest pain, No edema Gastrointestinal: constipation, pain Genitourinary: No dysuria Musculoskeletal: No back pain Skin: No bruising, No rash Neurologic: No confusion Psychological: No anxiety Past Medical History diabetes, high cholesterol, hypertension, shunt Past Surgical History R aka Family History Significant Family History: no pertinent family hx Social History Alcohol Use: none Smoking Status: Never smoker Drug Use: none Exam/Review of Systems Vital Signs Vitals Vital Signs Date Time Temp Pulse Resp B/P Pulse Ox O2 Delivery O2 Flow Rate FiO2 05/02/17 23:00 151 23 96/73 98 BIPAP 05/02/17 22:00 40 05/02/17 19:00 15.0 05/02/17 13:24 98.7 Exam Constitutional: alert, distress, oriented Psych: anxiety Head: atraumatic, normocephalic, other (left head wound (shunt) with creamy drainage) Eyes: nl lids, nl sclera ENMT: mucosa pink and moist, nl nasal mucosa & septum Neck: non-tender Respiratory: diminished breath sounds Cardiovascular: other (tachycardic) Gastrointestinal: distended, No rebound or guarding, No tender Musculoskeletal: other Neurological: nl mental status, nl speech Skin: nl turgor Results Result Diagram: 05/02/17 1017 05/02/172009 Results 24 hrs Laboratory Tests Test 05/02/17 10:17 05/02/17 12:10 05/02/17 12:30 05/02/17 13:31 White Blood Count 18.9 #H Red Blood Count 4.86 # Hemoglobin 15.6 # Hematocrit 45.3 # Mean Corpuscular Volume 93.2 Mean Corpuscular Hemoglobin 32.1 Mean Corpuscular Hemoglobin Concent 34.4 Red Cell Distribution Width 14.8 H Platelet Count 98 L Mean Platelet Volume 10.6 H Neutrophils % 63.0 Segmented Neutrophils % (Manual) 63 Band Neutrophils % (Manual) 26 H Lymphocytes % 3.0 L Lymphocytes % (Manual) 3 L Monocytes % 7.0 Monocytes % (Manual) 7 Eosinophils % 0.0 Basophils % 0.0 Metamyelocytes % (manual) 1 H Nucleated Red Blood Cells % 0.0 Neutrophils # 16.4 H Neutrophils # (Manual) 16.8 H Band Neutrophils # 26.0 H Absolute Lymphocytes (Manual) 0.5 L Lymphocytes # 0.9 Monocytes # 1.4 H Absolute Monocytes (Manual) 1.3 H Eosinophils # 0.0 Basophils # 0.1 Metamyelocytes # 0.1 H Nucleated Red Blood Cells # 0.0 Platelet Estimate DECREASED Polychromasia 2+ Poikilocytosis 3+ Anisocytosis 1+ Prothrombin Time 17.2 H Prothrombin Time Ratio 1.3 INR International Normalized Ratio 1.40 Activated Partial Thromboplast Time 34.3 Sodium Level 139 Potassium Level 4.7 Chloride Level 107 Carbon Dioxide Level 13 L Anion Gap 24 H Blood Urea Nitrogen 77 H Creatinine 5.55 H Glucose Level 452 *H Lactic Acid Level 4.5 *H 3.5 *H Calcium Level 8.6 Total Bilirubin 1.0 Direct Bilirubin 0.00 Indirect Bilirubin 1.0 Aspartate Amino Transf (AST/SGOT) 84 H Alanine Aminotransferase (ALT/SGPT) 37 Alkaline Phosphatase 96 Troponin I 0.163 *H Total Protein 7.2 Albumin 3.8 Globulin 3.40 H Albumin/Globulin Ratio 1.11 Urine Color YELLOW Urine Clarity SLIGHTLY CLOUDY A Urine pH 5.0 Urine Specific [place] 1.014 Urine Ketones NEGATIVE Urine Nitrite NEGATIVE Urine Bilirubin NEGATIVE Urine Urobilinogen NEGATIVE Urine Leukocyte Esterase NEGATIVE Urine Microscopic RBC 2 Urine Microscopic WBC 2 Urine Amorphous Crystals FEW A Urine Bacteria FEW A Urine Hemoglobin 1+ H Urine Glucose 1+ H Urine Total Protein 2+ H Blood Gas Specimen Source Blood venous Arterial Blood Date Drawn 05/02/2017 5:50:53 PM Arterial Blood Gas Puncture Site VENOUS LINE Marcos Test N/A Venous Blood pH 7.197 *L Venous Blood pCO2 (Temp Corrected) 29.8 L Venous Blood pO2 (Temp Corrected) 41.6 H Venous Blood HCO3 11.3 L Venous Blood Oxygen Saturation 74.1 Venous Blood Base Excess -15.3 L Venous Blood Total Hemoglobin 15.2 Venous Blood Oxyhemoglobin 73.0 Venous Blood Methemoglobin 0.8 Carboxyhemoglobin 0.7 Blood Gas Temperature 37.0 Blood Gas Actual Respiration Rate 30 Blood Gas Modality MASK - NRB FiO2 100.0 Blood Gas Critical Value Read Back BARBARA SCRUGGS Blood Gas Notified Whom MAINE RT Blood Gas Notified Time 05/02/2017 6:03:14 PM Test 05/02/17 13:45 05/02/17 14:02 05/02/17 14:47 05/02/17 15:59 Sodium Level 138 Potassium Level 4.4 Chloride Level 111 H Carbon Dioxide Level 11 L Anion Gap 20 H Blood Urea Nitrogen 76 H Creatinine 5.40 H Glucose Level 432 *H Calcium Level 8.1 L Lipase 67410 H Bedside Glucose 426 *H 381 H 302 H Test 05/02/17 16:25 05/02/17 16:59 05/02/17 18:00 05/02/17 18:50 Sodium Level 140 Potassium Level 4.1 Chloride Level 111 H Carbon Dioxide Level 11 L Anion Gap 22 H Blood Urea Nitrogen 82 H Creatinine 5.98 H Glucose Level 324 H Lactic Acid Level 4.5 *H Calcium Level 8.1 L Bedside Glucose 281 H 231 H Blood Gas Specimen Source Blood arterial Arterial Blood Date Drawn 05/02/2017 8:07:26 PM Arterial Blood pH (Temp corrected) 7.244 *L Arterial Blood pCO2 (Temp correct) 24.4 L Arterial Blood pO2 (Temp corrected) 145.1 H Arterial Blood HCO3 10.3 L Arterial Blood Base Excess -15.1 L Arterial Blood Oxygen Saturation 98.6 H Marcos Test N/A Arterial Blood Gas Puncture Site Right Brachial Arterial Blood Carboxyhemoglobin 0.3 Arterial Blood Methemoglobin 0.9 Blood Gas A-a O2 Differential 255.9 H Oxyhemoglobin Percent 97.4 Total Hemoglobin 14.8 Blood Gas Temperature 37.0 Blood Gas Respiration Rate 18.0 Blood Gas Actual Respiration Rate 27 Blood Gas Modality MASK - BIPAP FiO2 60.0 Blood Gas IPAP/EPAP Ratio 15/5 Blood Gas Critical Value Read Back Jessica ARELLANO MD Blood Gas Notified Whom MG Blood Gas Notified Time 05/02/2017 8:12:18 PM Test 05/02/17 19:12 05/02/17 20:04 05/02/17 20:10 05/02/17 21:10 Bedside Glucose 192 192 205 Sodium Level 139 Potassium Level 4.2 Chloride Level 111 H Carbon Dioxide Level 13 L Anion Gap 19 H Blood Urea Nitrogen 83 H Creatinine 6.18 H Glucose Level 214 # Calcium Level 8.0 L Test 05/02/17 22:07 05/02/17 23:12 Bedside Glucose 174 128 Medications Medications Current Medications Sodium Chloride (NS) 1,000 ml @ 150 mls/hr Q6H40M IV ; Start 05/02/17 at 18:42 Ondansetron HCl (Zofran Inj) 4 mg Q6H PRN IV NAUSEA AND/OR VOMITING; Start 05/02/17 at 19:00 Lorazepam (Ativan) 0.5 mg Q2H PRN IV ANXIETY; Start 05/02/17 at 19:00 Pantoprazole (Protonix Iv) 40 mg DAILY@06 IV ; Start 05/03/17 at 06:00 Diagnostic Test (Pha) (Accu-Chek) 1 ea Q1H XX Last administered on 05/02/17t 22 :08; Admin Dose 1 EA; Start 05/02/17 at 19:00 Dextrose (D50w Syringe) 25 ml Q15M PRN IV Till BS 80 mg/dL or above x2; Start 05/02/17 at 19:00 Dextrose 50 ml 50 ml Q15M PRN IV Till BS 80 mg/dL or above x2; Start 05/02/17 at 19:00 Meropenem/Sodium Chloride 50 ml @ 100 mls/hr Q24H IVPB Last administered on t 20:00; Admin Dose 100 MLS/HR; Start 05/02/17 at 20:00 Norepinephrine (Levophed) 250 ml @ 1.875 mls/ hr TITRATE IV ; Start 05/02/17 at 19:00 Hydromorphone HCl (Dilaudid) 1 mg Q4H PRN IV PAIN LEVEL 7-10; Start 05/02/17 at 23:00 JEB LIRIANO NP May 02, 2017 23:47
[2017-05-03] VITALS (41 sets, daily range): BP systolic 72–120; BP diastolic 22–106; PULSE 132–158; RESP 14–39; TEMP 99.4; Ht 172.7 cm; Wt 86.6 kg
[2017-05-03] MEDS: ACCU-CHEK XX SCH ×7 (00:29→06:21)
[2017-05-03 00:57] LABS: CALCIUM 7.4 mg/dl (8.4-10.2); CREATININE 6.18 mg/dl (0.61-1.24); POTASSIUM 4.1 mmol/L (3.5-5.1)
[2017-05-03] MEDS: SOD CHLORIDE 0.9% 1,000 ML IV SCH (02:11)
[2017-05-03 03:40] LABS: ABNORMAL IP MESSAGE 1; BASOPHILS % 0.2 % (0.0-2.0); EOSINOPHILS % 0.2 % (0.0-7.0); HEMATOCRIT 38.6 % (42.0-52.0); HEMOGLOBIN 13.2 g/dl (14.0-18.0); LYMPHOCYTES # 1.1 10^3/ul (0.8-2.9); LYMPHOCYTES % 9.1 % (15.0-51.0); MEAN CORPUSCULAR HEMOGLOBIN 31.9 pg (29.0-33.0); MEAN CORPUSCULAR HGB CONC 34.2 g/dl (32.0-37.0); MEAN CORPUSCULAR VOLUME 93.2 fl (82.0-101.0); MEAN PLATELET VOLUME 11.4 fl (7.4-10.4); MONOCYTE # 1.2 10^3/ul (0.3-0.9); MONOCYTES % 10.3 % (0.0-11.0); NEUTROPHIL # 9.6 10^3/ul (1.6-7.5); NEUTROPHILS % 79.3 % (39.0-77.0); PLATELET COUNT 84 10^3/UL (140-415); POSITIVE DIFF @See below; RED BLOOD COUNT 4.14 10^6/ul (4.70-6.10); RED CELL DISTRIBUTION WIDTH 15.4 % (11.5-14.5); WHITE BLOOD COUNT 12.1 10^3/ul (4.8-10.8)
[2017-05-03 03:57] LABS: ALBUMIN/GLOBULIN RATIO 0.85; BILIRUBIN,INDIRECT 0.5 mg/dl (0-1.1); BILIRUBIN,TOTAL 0.5 mg/dl (0.2-1.3); CALCIUM 7.5 mg/dl (8.4-10.2); CREATININE 6.4 mg/dl (0.61-1.24); MAGNESIUM 1.3 mg/dl (1.7-2.5); PHOSPHORUS 5.3 mg/dl (2.5-4.9); POTASSIUM 4.1 mmol/L (3.5-5.1); TOTAL PROTEIN 6.5 g/dl (6.1-8.1)
[2017-05-03] MEDS: HYDROmorphONE 1 MG/ML SYG IV PRN ×3 (05:36→20:49)
[2017-05-03] MEDS: PANTOPRAZOLE 40 MG INJ IV SCH (06:21)
[2017-05-03] MEDS ORDERED: INSULIN REGULAR 10 ML INJ SC STA (06:56)
[2017-05-03] MEDS ORDERED: INSULIN GLARGINE [LANtus] 3 ML PEN SC ONE (07:00)
--- NOTE | 2017-05-03 07:00 | QN ---
Documentation Comment I was notified by the nurse that the patient's anion gap is closed this morning. I reviewed the labs and it appears the patient's anion gap is 12. The patient is currently on DKA protocol. The nurse notify Dr. Vincent who wanted to give orders verbally. I spoke to Dr. Vincent. He would like Lantus 5 units subcutaneous now, discontinue insulin drip and 30 minutes to 1 hour and continue Accu-Cheks. D5 solution to remain given the patient is n.p.o. I entered these orders for Dr. Vincent. The patient continues to board in the emergency department pending ICU bed. ALBERT STARKS MD May 03, 2017 07:00
--- NOTE | 2017-05-03 07:55 | CONS ---
DATE OF ADMISSION: 05/02/2017 DATE OF CONSULTATION: 05/02/2017 REFERRING PHYSICIAN: Dr. Vincent REASON FOR CONSULTATION: Tachycardia. CHIEF COMPLAINT: Abdominal pain. HISTORY OF PRESENT ILLNESS: Thank you for this referral. History was obtained from the patient luz khan, from extensive review of the old chart, discussion with Dr. Vincent and staff. This is an unf ortunate 67-year-old gentleman with multiple complicated medical history who was brought in from a [facility] facility due to constipation and abdominal discomfort. Workup has shown severe sepsis, shock, and severe pancreatitis. The patient has been tachycardic. Heart rate has been as high as 1 40 and has gone up to 160 now. He complains of diffuse abdominal pain. No chest pain or pressure. Denies any shortness of breath to me at this point. Due to his severe tachycardia, we were kindly asked to evaluate and treat. MEDICATIONS: As per medication reconciliation, was personally reviewed. PAST MEDICAL HISTORY: History of diabetes, history of CVA x2 with right-sided weakness, history of right BKA, history of seizure disorder on Keppra, history of dyslipidemia on statin, history of depr ession, history of renal failure previously. Review of the old chart showed the most recent creatin ine prior to admission on 11/26/2016 was 1.33 though. SOCIAL HISTORY: The patient lives in a snf. No acute tobacco, alcohol or drug abuse at [facility]. FAMILY HISTORY: Positive for diabetes, but no early coronary artery disease. ALLERGIES: NO KNOWN DRUG ALLERGIES. REVIEW OF SYSTEMS: Otherwise, as above-mentioned. PHYSICAL EXAMINATION: VITAL SIGNS: Temperature 98.7, heart rate of 160, blood pressure of ____74/61, respiratory rate of 28, saturating 97% on 40% oxygen. HEENT: Normocephalic, atraumatic. No acute respiratory distress. Eyes: Pupils are equal. CARDIOVASCULAR: Tachycardic. PULMONARY: With no wheeze anteriorly. GASTROINTESTINAL: Distended, positive tender to palpation. Very diffuse tenderness and mild guardi ng, no rebound. EXTREMITIES: Positive right lower extremity BKA. NEUROLOGIC: He is awake, responds appropriately, with one-sided weakness. PSYCHIATRIC: Appears to be calm. LABORATORY: Sodium 140, potassium 4.1, BUN of 82, creatinine of 5.98, glucose of 324, anion gap is 22. Lactic acid is 4.5. Calcium is 8.1. Lipase is 24,212. Troponin 0.163. AST of 84, ALT of 37. WBC of 18.9 with 26% bands. Platelets of 98. Hemoglobin of 15.6. EKG was personally reviewed, s hows sinus tachycardia. Poor R-wave progression. Review of the old chart showed echocardiogram ara e in October 2016, shows ejection fraction of 65%. CT of the abdomen/pelvic in the emergency room shows diffusely enlarged pancreas with surrounding ex tensive inflammatory changes consistent with acute pancreatitis. ASSESSMENT AND PLAN: 1. Sinus tachycardia secondary to below. 2. Severe sepsis and septic shock. 3. Severe pancreatitis. 4. Diabetes. 7. Severe metabolic acidosis. 8. Hypertension, currently in shock and hypotensive. 9. History of dyslipidemia. 10. History of below-knee amputation. 11. History of craniotomy and meningioma, status post craniotomy. 12. History of seizure disorder. RECOMMENDATIONS: Antibiotic is managed as per infectious disease and Dr. Vincent. Patient obviously will be admitted to ICU. He is already on Levophed. Dean-Synephrine drip to be added as well. I bustillo ve ordered an echocardiogram for tomorrow. Electrolytes will be checked periodically and adjusted. Insulin drip will be initiated. We will closely monitor him. Prognosis appeared to be poor. I do expect troponin rise, given his severe sepsis and shock and persistent tachycardia. More than 40 minutes of critical care time was spent in management and treating this patient excludi ng any procedures. Thank you for this referral. We will continue to follow along with you. Dictated By: CARMEN MORTENSEN/DAVIE Conf#: [id number] DID#: [id number]
[2017-05-03] MEDS: ONDANSETRON 4 MG INJ IV PRN (08:47)
[2017-05-03 09:47] LABS: AADO2 Arterial 175.7 mmHg (7.0-24.0); Allen Test ACCEPTAB; Arterial Base Excess -16.1 mmol/L (-3.0-3); Arterial COHb 0.3 % (0.0-3.0); Arterial Fraction of Oxyhgb 93.8 % (93.0-99.0); Arterial HCO3 9.6 mmol/L (22.0-26.0); Arterial MetHb 0.6 % (0.0-1.5); Arterial Total Hemglobin 13.4 g/dl (12.0-18.0); MODE NASAL CANNULA
[2017-05-03] MEDS ORDERED: MAGNESIUM SULFATE 2 GM/50 ML 50 ML IVPB ONE (10:00)
[2017-05-03] MEDS ORDERED: SOD CHLORIDE 0.9% 1,000 ML IV ONE (10:00)
[2017-05-03] MEDS ORDERED: DEXTROSE 5% 1,000 ML IV SCH (10:00)
[2017-05-03] MEDS ORDERED: CA CHLORIDE 10% 10 ML SYRINGE IV ONE (10:00)
--- NOTE | 2017-05-03 12:07 | CONS ---
Date/Time of Note Date/Time of Note DATE: 05/03/17 TIME: 12:04 Consultation Date/Type/Reason Admit Date/Time Date of Consultation: May 03, 2017 Type of Consultation: renal Hx of Present Illness REFERRING PHYSICIAN: Dr. Vincent REASON FOR CONSULTATION: ARF CHIEF COMPLAINT: Abdominal pain. HISTORY OF PRESENT ILLNESS: Thank you for this referral. History was obtained from the patient partially, from extensive review of the old chart, discussion with staff. This is an unfortunate 67-year-old gentleman with multiple complicated medical history who was brought in from a long-term facility due to constipation and abdominal discomfort. Workup has shown severe sepsis, shock , and severe pancreatitis. The patient has been tachycardic. Heart rate has been as high as 160. He complains of diffuse abdominal pain. No chest pain or pressure. Denies any shortness of breath at this point. He has arf with baselin creatinine of 1.3 Imaging studies showed renal mass but no obstruction He is currently on pressors and ivf with stable bp MEDICATIONS: As per medication reconciliation, was personally reviewed. PAST MEDICAL HISTORY: History of diabetes, history of CVA x2 with right-sided weakness, history of right BKA, history of seizure disorder on Keppra, history of dyslipidemia on statin, history of depression, history of renal failure previously. Review of the old chart showed the most recent creatinine prior to admission on 11/26/2016 was 1.33 though. SOCIAL HISTORY: The patient lives in a long-term. No acute tobacco, alcohol or drug abuse at this point. FAMILY HISTORY: Positive for diabetes, but no early coronary artery disease. ALLERGIES: NO KNOWN DRUG ALLERGIES. REVIEW OF SYSTEMS: 14 point ROS was done and the pertinent findings are in HPI PHYSICAL EXAMINATION: VITAL SIGNS: Temperature 98.7, heart rate of 160, blood pressure of ____74/61, respiratory rate of 28, saturating 97% on 40% oxygen. HEENT: Normocephalic, atraumatic. No acute respiratory distress. Eyes: Pupils are equal. CARDIOVASCULAR: Tachycardic. PULMONARY: With no wheeze anteriorly. GASTROINTESTINAL: Distended, positive tender to palpation. Very diffuse tenderness and mild guarding, no rebound. EXTREMITIES: Positive right lower extremity BKA. NEUROLOGIC: He is awake, responds appropriately, with one-sided weakness. PSYCHIATRIC: Appears to be calm. CT of the abdomen/pelvic in the emergency room shows diffusely enlarged pancreas with surrounding extensive inflammatory changes consistent with acute pancreatitis. ASSESSMENT AND PLAN: 1. ARF due to ATN. imaging studies were reviewed. will send off urine studies. continue IVF and pressors. keep MAP > 60. will need HD if no improvement in renal function in the next 24-48 hours 2. Severe sepsis and septic shock. 3. Severe pancreatitis. 4. Diabetes. 7. Severe metabolic acidosis. 8. Hypertension, currently in shock and hypotensive. 9. History of dyslipidemia. 10. History of below-knee amputation. 11. History of craniotomy and meningioma, status post craniotomy. 12. History of seizure disorder. Social History Smoking Status: Never smoker Exam/Review of Systems Vital Signs Vitals Vital Signs Date Time Temp Pulse Resp B/P Pulse Ox O2 Delivery O2 Flow Rate FiO2 05/03/17 11:39 150 17 91/67 94 Nasal Cannula 5.0 05/03/17 10:18 99.4 05/03/17 04:30 70 Intake and Output 05/02/17 05/02/17 05/03/17 15:00 23:00 07:00 Intake Total 1050 ml 375 ml Balance 1050 ml 375 ml Results Result Diagram: 05/03/17 0300 05/03/17 0300 Results 24 hrs Laboratory Tests Test 05/02/17 12:10 05/02/17 12:30 05/02/17 13:31 05/02/17 13:45 Urine Color YELLOW Urine Clarity SLIGHTLY CLOUDY A Urine pH 5.0 Urine Specific [place] 1.014 Urine Ketones NEGATIVE Urine Nitrite NEGATIVE Urine Bilirubin NEGATIVE Urine Urobilinogen NEGATIVE Urine Leukocyte Esterase NEGATIVE Urine Microscopic RBC 2 Urine Microscopic WBC 2 Urine Amorphous Crystals FEW A Urine Bacteria FEW A Urine Hemoglobin 1+ H Urine Glucose 1+ H Urine Total Protein 2+ H Lactic Acid Level 3.5 *H Blood Gas Specimen Source Blood venous Arterial Blood Date Drawn 05/02/2017 5:50:53 PM Arterial Blood Gas Puncture Site VENOUS LINE Marcos Test N/A Venous Blood pH 7.197 *L Venous Blood pCO2 (Temp Corrected) 29.8 L Venous Blood pO2 (Temp Corrected) 41.6 H Venous Blood HCO3 11.3 L Venous Blood Oxygen Saturation 74.1 Venous Blood Base Excess -15.3 L Venous Blood Total Hemoglobin 15.2 Venous Blood Oxyhemoglobin 73.0 Venous Blood Methemoglobin 0.8 Carboxyhemoglobin 0.7 Blood Gas Temperature 37.0 Blood Gas Actual Respiration Rate 30 Blood Gas Modality MASK - NRB FiO2 100.0 Blood Gas Critical Value Read Back BARBRAA SCRUGGS Blood Gas Notified Whom MAINE RT Blood Gas Notified Time 05/02/2017 6:03:14 PM Sodium Level 138 Potassium Level 4.4 Chloride Level 111 H Carbon Dioxide Level 11 L Anion Gap 20 H Blood Urea Nitrogen 76 H Creatinine 5.40 H Glucose Level 432 *H Calcium Level 8.1 L Lipase 51684 H Test 05/02/17 14:02 05/02/17 14:47 05/02/17 15:59 05/02/17 16:25 Bedside Glucose 426 *H 381 H 302 H Sodium Level 140 Potassium Level 4.1 Chloride Level 111 H Carbon Dioxide Level 11 L Anion Gap 22 H Blood Urea Nitrogen 82 H Creatinine 5.98 H Glucose Level 324 H Lactic Acid Level 4.5 *H Calcium Level 8.1 L Test 05/02/17 16:59 05/02/17 18:00 05/02/17 18:50 05/02/17 19:12 Bedside Glucose 281 H 231 H 192 Blood Gas Specimen Source Blood arterial Arterial Blood Date Drawn 05/02/2017 8:07:26 PM Arterial Blood pH (Temp corrected) 7.244 *L Arterial Blood pCO2 (Temp correct) 24.4 L Arterial Blood pO2 (Temp corrected) 145.1 H Arterial Blood HCO3 10.3 L Arterial Blood Base Excess -15.1 L Arterial Blood Oxygen Saturation 98.6 H Marcos Test N/A Arterial Blood Gas Puncture Site Right Brachial Arterial Blood Carboxyhemoglobin 0.3 Arterial Blood Methemoglobin 0.9 Blood Gas A-a O2 Differential 255.9 H Oxyhemoglobin Percent 97.4 Total Hemoglobin 14.8 Blood Gas Temperature 37.0 Blood Gas Respiration Rate 18.0 Blood Gas Actual Respiration Rate 27 Blood Gas Modality MASK - BIPAP FiO2 60.0 Blood Gas IPAP/EPAP Ratio 15/ Blood Gas Critical Value Read Back Jessica VINCENT MD Blood Gas Notified Whom MG Blood Gas Notified Time 05/02/2017 8:12:18 PM Test 05/02/17 20:04 05/02/17 20:10 05/02/17 21:10 05/02/17 22:07 Bedside Glucose 192 205 174 Sodium Level 139 Potassium Level 4.2 Chloride Level 111 H Carbon Dioxide Level 13 L Anion Gap 19 H Blood Urea Nitrogen 83 H Creatinine 6.18 H Glucose Level 214 # Calcium Level 8.0 L Test 05/02/17 23:12 05/03/17 00:15 05/03/17 00:25 05/03/17 01:09 Bedside Glucose 128 116 98 Sodium Level 140 Potassium Level 4.1 Chloride Level 111 H Carbon Dioxide Level 15 L Anion Gap 18 H Blood Urea Nitrogen 84 H Creatinine 6.18 H Glucose Level 120 # Calcium Level 7.4 L Test 05/03/17 02:02 05/03/17 03:00 05/03/17 03:06 05/03/17 03:40 Bedside Glucose 135 111 White Blood Count 12.1 #H Red Blood Count 4.14 L Hemoglobin 13.2 L Hematocrit 38.6 L Mean Corpuscular Volume 93.2 Mean Corpuscular Hemoglobin 31.9 Mean Corpuscular Hemoglobin Concent 34.2 Red Cell Distribution Width 15.4 H Platelet Count 84 L Mean Platelet Volume 11.4 H Neutrophils % 79.3 H Lymphocytes % 9.1 L Monocytes % 10.3 Eosinophils % 0.2 Basophils % 0.2 Nucleated Red Blood Cells % 0.0 Neutrophils # 9.6 H Lymphocytes # 1.1 Monocytes # 1.2 H Eosinophils # 0.0 Basophils # 0.0 Nucleated Red Blood Cells # 0.0 Sodium Level 139 Potassium Level 4.1 Chloride Level 111 H Carbon Dioxide Level 16 L Anion Gap 16 Blood Urea Nitrogen 85 H Creatinine 6.40 H Glucose Level 102 Calcium Level 7.5 L Phosphorus Level 5.3 H Magnesium Level 1.3 L Total Bilirubin 0.5 Direct Bilirubin 0.00 Indirect Bilirubin 0.5 Aspartate Amino Transf (AST/SGOT) 99 H Alanine Aminotransferase (ALT/SGPT) 41 Alkaline Phosphatase 74 Total Protein 6.5 Albumin 3.0 L Globulin 3.50 H Albumin/Globulin Ratio 0.85 Activated Partial Thromboplast Time 31.4 Test 05/03/17 04:17 05/03/17 05:20 05/03/17 05:32 05/03/17 06:19 Bedside Glucose 88 87 97 Lactic Acid Level 2.5 *H Test 05/03/17 07:06 05/03/17 08:17 05/03/17 09:25 05/03/17 09:47 Bedside Glucose 106 122 208 Blood Gas Specimen Source Blood arterial Arterial Blood Date Drawn 05/03/2017 9:36:11 AM Arterial Blood pH (Temp corrected) 7.231 *L Arterial Blood pCO2 (Temp correct) 23.3 L Arterial Blood pO2 (Temp corrected) 75.5 L Arterial Blood HCO3 9.6 *L Arterial Blood Base Excess -16.1 L Arterial Blood Oxygen Saturation 94.7 L Marcos Test ACCEPTAB Arterial Blood Gas Puncture Site Right Radial Arterial Blood Carboxyhemoglobin 0.3 Arterial Blood Methemoglobin 0.6 Blood Gas A-a O2 Differential 175.7 H Oxyhemoglobin Percent 93.8 Total Hemoglobin 13.4 Blood Gas Temperature 37.0 Blood Gas Modality NASAL CANNULA FiO2 39.0 Blood Gas Critical Value Read Back DR. VINCENT Blood Gas Notified Whom RT Blood Gas Notified Time 05/03/2017 9:47:00 AM Test 05/03/17 11:03 Bedside Glucose 225 H Medications Medications Current Medications Sodium Chloride (NS) 1,000 ml @ 150 mls/hr Q6H40M IV Last administered on 05/03 02:11; Admin Dose 150 MLS/HR; Start 05/02/17 at 18:42 Ondansetron HCl (Zofran Inj) 4 mg Q6H PRN IV NAUSEA AND/OR VOMITING Last administered on 05/03/17 08:47; Admin Dose 4 MG; Start 05/02/17 at 19:00 Lorazepam (Ativan) 0.5 mg Q2H PRN IV ANXIETY; Start 05/02/17 at 19:00 Pantoprazole (Protonix Iv) 40 mg DAILY@06 IV Last administered on 05/03/17 06: 21; Admin Dose 40 MG; Start 05/03/17 at 06:00 Diagnostic Test (Pha) (Accu-Chek) 1 ea Q1H XX Last administered on 05/03/17 06 :21; Admin Dose 1 EA; Start 05/02/17 at 19:00 Dextrose (D50w Syringe) 25 ml Q15M PRN IV Till BS 80 mg/dL or above x2; Start 05/02/17 at 19:00 Dextrose 50 ml 50 ml Q15M PRN IV Till BS 80 mg/dL or above x2; Start 05/02/17 at 19:00 Meropenem/Sodium Chloride 50 ml @ 100 mls/hr Q24H IVPB Last administered on 20:00; Admin Dose 100 MLS/HR; Start 05/02/17 at 20:00 Norepinephrine (Levophed) 250 ml @ 1.875 mls/ hr TITRATE IV ; Start 05/02/17 at 19:00 Hydromorphone HCl (Dilaudid) 1 mg Q4H PRN IV PAIN LEVEL 7-10 Last administered on 05/03/17 10:45; Admin Dose 1 MG; Start 05/02/17 at 23:00 Miscellaneous Information RANDOM VANCOMYCIN LEVEL 1... ONCE ONCE XX ; Start at 05:00; Stop 05/04/17 at 05:01 Dextrose (D5W) 1,000 ml @ 150 mls/hr Q6H40M IV ; Start 05/03/17 at 10:00 Insulin Glargine (Lantus) 10 unit Q12 ONCE SC ; Start 05/03/17 at 10:30; Stop 05/03/17 at 10:31; Status UNV Insulin Aspart (Novolog Insulin Pen) NOVOLOG *MODERATE* ALGORI... Q2 SC ; Start 05/03/17 at 11:00; Status UNV ESEQUIEL CORONA DO May 03, 2017 12:07
[2017-05-03 12:46] LABS: CALCIUM 7.5 mg/dl (8.4-10.2); CREATININE 6.7 mg/dl (0.61-1.24); POTASSIUM 5.1 mmol/L (3.5-5.1)
[2017-05-03] MEDS ORDERED: GLUCOSE GEL 15 GRAM TUBE BUCCAL PRN (14:00)
[2017-05-03] MEDS ORDERED: GLUCOSE GEL 15 GRAM TUBE PO PRN ×2 (14:00)
[2017-05-03] MEDS ORDERED: DEXTROSE 50% 50 ML SYRINGE IV PRN ×2 (14:00)
[2017-05-03] MEDS ORDERED: GLUCAGON 1 MG INJ IM PRN (14:00)
[2017-05-03] MEDS: INSULIN ASPART [NOVOLOG] 3 ML PEN SC SCH ×4 (14:58→21:36)
[2017-05-03] MEDS ORDERED: SODIUM BICARBONATE (IV ADD) 100 MEQ in DEXTROSE 5% 1,000 ML IV SCH (15:00)
--- NOTE | 2017-05-03 16:06 | RADRPT ---
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 Physician: CARMEN GARCIA Quality: Adequate Procedures: Transthoracic echocardiogram with complete 2D, M-Mode, and doppler examination. Indications: Shock. 2D/M Mode Doppler Measurement Value Normal Ranges Measurement Value Normal Ranges LVIDd 2D 3.3 3.5 - 5.6 cm AV Peak Gallo 2.0 m/sec LVIDs 2D 2.2 2.1 - 4.1 cm AV Peak PG 16.0 mmHg FS 2D 34.1 % LVOT Peak Gallo 1.7 m/sec LVPWd 2D 1.3 0.6 - 1.1 cm LVOT Peak PG 12.0 mmHg IVSd 2D 1.3 0.6 - 1.1 cm MV E Peak Gallo 0.8 m/sec IVS/LVPW 2D 1.0 MV A Peak Gallo 1.1 m/sec AoR Diam 2D 2.6 2.0 - 3.7 cm MV E/A 0.8 LA/Ao 2D 1 0 - 1 MV Decel Time 81 msec EDV 2D 35.3 cm3 MV E/A 0.8 ESV 2D 10.1 cm3 TR Peak Gallo 3.4 m/sec LA Dimen 2D 3.0 2.3 - 4.0 cm TR Peak PG 46.0 mmHg RVSP 56.0 mmHg Findings Left Ventricle: Hyperdynamic left ventricular systolic function. Normal left ventricular cavity size. Mild concentric left ventricular hypertrophy. Ejection fraction is visually estimated at 70 %. Abnormal Diastolic Function. Right Ventricle: Normal right ventricular size. Normal right ventricular systolic function. Left Atrium: The left atrium is normal in size. Right Atrium: The right atrium is normal in size. Mitral Valve: Mild mitral leaflet calcification. Mild mitral annular calcification. Trace mitral regurgitation. Aortic Valve: No significant aortic stenosis or insufficiency. Aortic cusps appear mildly calcified. Non coronary cusp appears moderately calcified. Tricuspid Valve: Normal appearance of the tricuspid valve. Estimated peak PA systolic pressure 56 mmHg. There is mild tricuspid regurgitation. Pulmonic Valve: Pulmonic valve not well visualized. There is trace pulmonic regurgitation. Pericardium: Normal pericardium with no significant pericardial effusion. Aorta: Normal aortic root. IVC: The IVC is not well visualized. Conclusions 1.Hyperdynamic left ventricular systolic function. Normal left ventricular cavity size. Mild concentric left ventricular hypertrophy. Ejection fraction is visually estimated at 70 %. Abnormal Diastolic Function. 2.The left atrium is normal in size. 3.Mild mitral leaflet calcification. Mild mitral annular calcification. Trace mitral regurgitation. 4.No significant aortic stenosis or insufficiency. Aortic cusps appear mildly calcified. Non coronary cusp appears moderately calcified. 5.Normal appearance of the tricuspid valve. Estimated peak PA systolic pressure 56 mmHg. There is mild tricuspid regurgitation. 6.The IVC is not well visualized. Electronically Signed By: Carmen Garcia 03-May-2017 16:05:13 -0700 Patient Name: PENG WEAVER Study Date: 03-May-2017 [id number]
--- NOTE | 2017-05-03 16:43 | CONS ---
Date/Time of Note Date/Time of Note DATE: 05/03/17 TIME: 16:36 Consult Date/Type/Reason Admit Date/Time May 03, 2017 at 12:49 Initial Consult Date 05/03/17 Type of Consultation: cardiology Subjective CARDIOLOGY FOLLOW UP NOTE/ Critical care note: S: d/w staff and rhythm was reviewed. pt remains in sinus tachycardia. he still c/o severe diffuse abdominal pain. he denies any cp or sob to me. he is still in ICU and on levophed dripl O: General: in mild distress HEENT: NC/AT. pupils are equal. round. NECK: NO JVD. no stridor. CV: tachycardic. . systolic murmur; no gallop or rubs. PULM: no wheezing or rhonchi. GI: diffuse tenderness. no rebound. Extremity: s/p R LE amputation. neuro: awake and alert, OX3. with right sided weakness Psych: calm and pleasant rectal: deferred : normal male ECHO Personally reviewed: 1. Hyperdynamic left ventricular systolic function. Normal left ventricular cavity size. Mild concentric left ventricular hypertrophy. Ejection fraction is visually estimated at 70 %. Abnormal Diastolic Function. 2. The left atrium is normal in size. 3. Mild mitral leaflet calcification. Mild mitral annular calcification. Trace mitral regurgitation. 4. No significant aortic stenosis or insufficiency. Aortic cusps appear mildly calcified. Non coronary cusp appears moderately calcified. 5. Normal appearance of the tricuspid valve. Estimated peak PA systolic pressure 56 mmHg. There is mild tricuspid regurgitation. 6. The IVC is not well visualized. Objective Vital Signs Date Time Temp Pulse Resp B/P Pulse Ox O2 Delivery O2 Flow Rate FiO2 05/03/17 12:00 151 05/03/17 11:39 17 91/67 94 Nasal Cannula 5.0 05/03/17 10:18 99.4 05/03/17 04:30 70 Intake and Output 05/02/17 05/02/17 05/03/17 14:59 22:59 06:59 Intake Total 1050 ml 375 ml Balance 1050 ml 375 ml Results/Medications Result Diagram: 05/03/17 0300 05/03/17 1204 Results 24 hrs Laboratory Tests Test 05/02/17 16:59 05/02/17 18:00 05/02/17 18:50 05/02/17 19:12 Bedside Glucose 281 H 231 H 192 Blood Gas Specimen Source Blood arterial Arterial Blood Date Drawn 05/02/2017 8:07:26 PM Arterial Blood pH (Temp corrected) 7.244 *L Arterial Blood pCO2 (Temp correct) 24.4 L Arterial Blood pO2 (Temp corrected) 145.1 H Arterial Blood HCO3 10.3 L Arterial Blood Base Excess -15.1 L Arterial Blood Oxygen Saturation 98.6 H Marcos Test N/A Arterial Blood Gas Puncture Site Right Brachial Arterial Blood Carboxyhemoglobin 0.3 Arterial Blood Methemoglobin 0.9 Blood Gas A-a O2 Differential 255.9 H Oxyhemoglobin Percent 97.4 Total Hemoglobin 14.8 Blood Gas Temperature 37.0 Blood Gas Respiration Rate 18.0 Blood Gas Actual Respiration Rate 27 Blood Gas Modality MASK - BIPAP FiO2 60.0 Blood Gas IPAP/EPAP Ratio 15/5 Blood Gas Critical Value Read Back Jessica VINCENT MD Blood Gas Notified Whom MG Blood Gas Notified Time 05/02/2017 8:12:18 PM Test 05/02/17 20:04 05/02/17 20:10 05/02/17 21:10 05/02/17 22:07 Bedside Glucose 192 205 174 Sodium Level 139 Potassium Level 4.2 Chloride Level 111 H Carbon Dioxide Level 13 L Anion Gap 19 H Blood Urea Nitrogen 83 H Creatinine 6.18 H Glucose Level 214 # Calcium Level 8.0 L Test 05/02/17 23:12 05/03/17 00:15 05/03/17 00:25 05/03/17 01:09 Bedside Glucose 128 116 98 Sodium Level 140 Potassium Level 4.1 Chloride Level 111 H Carbon Dioxide Level 15 L Anion Gap 18 H Blood Urea Nitrogen 84 H Creatinine 6.18 H Glucose Level 120 # Calcium Level 7.4 L Test 05/03/17 02:02 05/03/17 03:00 05/03/17 03:06 05/03/17 03:40 Bedside Glucose 135 111 White Blood Count 12.1 #H Red Blood Count 4.14 L Hemoglobin 13.2 L Hematocrit 38.6 L Mean Corpuscular Volume 93.2 Mean Corpuscular Hemoglobin 31.9 Mean Corpuscular Hemoglobin Concent 34.2 Red Cell Distribution Width 15.4 H Platelet Count 84 L Mean Platelet Volume 11.4 H Neutrophils % 79.3 H Lymphocytes % 9.1 L Monocytes % 10.3 Eosinophils % 0.2 Basophils % 0.2 Nucleated Red Blood Cells % 0.0 Neutrophils # 9.6 H Lymphocytes # 1.1 Monocytes # 1.2 H Eosinophils # 0.0 Basophils # 0.0 Nucleated Red Blood Cells # 0.0 Sodium Level 139 Potassium Level 4.1 Chloride Level 111 H Carbon Dioxide Level 16 L Anion Gap 16 Blood Urea Nitrogen 85 H Creatinine 6.40 H Glucose Level 102 Calcium Level 7.5 L Phosphorus Level 5.3 H Magnesium Level 1.3 L Total Bilirubin 0.5 Direct Bilirubin 0.00 Indirect Bilirubin 0.5 Aspartate Amino Transf (AST/SGOT) 99 H Alanine Aminotransferase (ALT/SGPT) 41 Alkaline Phosphatase 74 Total Protein 6.5 Albumin 3.0 L Globulin 3.50 H Albumin/Globulin Ratio 0.85 Activated Partial Thromboplast Time 31.4 Test 05/03/17 04:17 05/03/17 05:20 05/03/17 05:32 05/03/17 06:19 Bedside Glucose 88 87 97 Lactic Acid Level 2.5 *H Test 05/03/17 07:06 05/03/17 08:17 05/03/17 09:25 05/03/17 09:47 Bedside Glucose 106 122 208 Blood Gas Specimen Source Blood arterial Arterial Blood Date Drawn 05/03/2017 9:36:11 AM Arterial Blood pH (Temp corrected) 7.231 *L Arterial Blood pCO2 (Temp correct) 23.3 L Arterial Blood pO2 (Temp corrected) 75.5 L Arterial Blood HCO3 9.6 *L Arterial Blood Base Excess -16.1 L Arterial Blood Oxygen Saturation 94.7 L Marcos Test ACCEPTAB Arterial Blood Gas Puncture Site Right Radial Arterial Blood Carboxyhemoglobin 0.3 Arterial Blood Methemoglobin 0.6 Blood Gas A-a O2 Differential 175.7 H Oxyhemoglobin Percent 93.8 Total Hemoglobin 13.4 Blood Gas Temperature 37.0 Blood Gas Modality NASAL CANNULA FiO2 39.0 Blood Gas Critical Value Read Back DR. VINCENT Blood Gas Notified Whom RT Blood Gas Notified Time 05/03/2017 9:47:00 AM Test 05/03/17 11:03 05/03/17 12:04 05/03/17 13:06 05/03/17 14:49 Bedside Glucose 225 H 263 H 279 H Sodium Level 134 L Potassium Level 5.1 Chloride Level 111 H Carbon Dioxide Level 12 L Anion Gap 16 Blood Urea Nitrogen 85 H Creatinine 6.70 H Glucose Level 256 #H Calcium Level 7.5 L Lipase 3719 H Test 05/03/17 16:05 Bedside Glucose 399 H Medications Current Medications Ondansetron HCl (Zofran Inj) 4 mg Q6H PRN IV NAUSEA AND/OR VOMITING Last administered on 05/03/17 08:47; Admin Dose 4 MG; Start 05/02/17 at 19:00 Lorazepam (Ativan) 0.5 mg Q2H PRN IV ANXIETY; Start 05/02/17 at 19:00 Pantoprazole 40 mg 40 mg DAILY@06 IV Last administered on 05/03/17 06:21; Admin Dose 40 MG; Start 05/03/17 at 06:00 Meropenem/Sodium Chloride 50 ml @ 100 mls/hr Q24H IVPB Last administered on 20:00; Admin Dose 100 MLS/HR; Start 05/02/17 at 20:00 Norepinephrine (Levophed) 250 ml @ 1.875 mls/ hr TITRATE IV Last administered on 05/03/17 13:05; Admin Dose 37.5 MLS/HR; Start 05/02/17 at 19:00 Hydromorphone HCl (Dilaudid) 1 mg Q4H PRN IV PAIN LEVEL 7-10 Last administered on 05/03/17 10:45; Admin Dose 1 MG; Start 05/02/17 at 23:00 Miscellaneous Information (*Rx Drug Level Order Reminder*) RANDOM VANCOMYCIN LEVEL 1... ONCE ONCE XX ; Start 05/04/17 at 05:00; Stop 05/04/17 at 05:01 Insulin Glargine (Lantus) 10 unit Q12 SC ; Start 05/03/17 at 21:00 Insulin Aspart NOVOLOG *MODERATE* ALGORI... Q2 SC Last administered on 16:10; Admin Dose 12 UNIT; Start 05/03/17 at 14:30 Sodium Bicarbonate/ Dextrose (Na Bicarb/D5W) 1,100 ml @ 150 mls/hr Q7H20M IV Last administered on 05/03/17 14:40; Admin Dose 150 MLS/HR; Start 05/03/17 at 15:00 Miscellaneous Information 1 ea NOTE XX ; Start 05/03/17 at 14:00 Glucose (Glutose) 15 gm Q15M PRN PO DECREASED GLUCOSE; Start 05/03/17 at 14:00 Glucose (Glutose) 22.5 gm Q15M PRN PO DECREASED GLUCOSE; Start 05/03/17 at 14: 00 Dextrose (D50w Syringe) 25 ml Q15M PRN IV DECREASED GLUCOSE; Start 05/03/17 at 14:00 Dextrose (D50w Syringe) 50 ml Q15M PRN IV DECREASED GLUCOSE; Start 05/03/17 at 14:00 Glucagon (Glucagen) 1 mg Q15M PRN IM DECREASED GLUCOSE; Start 05/03/17 at 14:00 Glucose (Glutose) 15 gm Q15M PRN BUCCAL DECREASED GLUCOSE; Start 05/03/17 at 14 :00 Insulin Aspart (Novolog Insulin Pen) 20 unit ONCE ONCE SC ; Start 05/03/17 at 17:00; Stop 05/03/17 at 17:01 Assessment/Plan Chief Complaint/Hosp Course 1. Sinus tachycardia secondary to below. 2. Severe sepsis and septic shock. 3. Severe pancreatitis. 4. Diabetes. 7. Severe metabolic acidosis. 8. HX of Hypertension, currently in shock and hypotensive. 9. History of dyslipidemia. 10. History of RLE amputation. 11. History of craniotomy and meningioma, status post craniotomy. 12. History of seizure disorder. 13. JESUSITA on CKD. 14. hypo Na. 15. mildly abnormal trop due to above RECOMMENDATIONS: Antibiotic is managed as per infectious disease and Dr. Vincent. He is already on Levophed I have asked the RN to change to Dean-Synephrine drip echo reviewed and did not show any evidence of LV dysfunction or effusion to explain the pt's tachycardia Electrolytes will be checked periodically and adjusted. cont Insulin. We will closely monitor him. Prognosis appeared to be guarded. cont ICU care. f.u with renal consultants rec. More than 40 minutes of critical care time was spent in management and treatment of this patient excluding any procedures. Problems: CARMEN MELO MD May 03, 2017 16:43
--- NOTE | 2017-05-03 16:57 | PN ---
Date/Time of Note Date/Time of Note DATE: 05/03/17 TIME: 16:53 Assessment/Plan Lines/Catheters High in Place (from [facility]): Yes Assessment/Plan Chief Complaint/Hosp Course 1. Abdominal pain: CT with ?sbo (doubt) vs. ileus and pancreatitis; pt with + flatus; persistent -npo -IV fluids -trend labs -check triglycerides -ngt if nauseated or uncomfortable -pain management 2. Sepsis with lactic acidosis: ? source; on pressors -supportive -hannon culture 3. Pancreatitis: labs improving -as above 4. ARF: decreased uop -judicious fluids -avoid nephrotoxic meds 5. Metabolic acidosis: -medical management 6. Uncontrolled Diabetes: blood sugar labile -optimize sugar control 7. Constipation -optimize bowel regimen 8. Electrolyte imbalance -optimize lytes Thank you. Patient seen and examined in collaboration with Dr. Jerome Marie. Problems: Subjective 24 Hr Interval Summary Feels ok. Continues in icu. On pressors. Tachycardic. Abdominal pain/ tenderness. No fevers, chills, sob, congested cough, n/v/d/dysuria, cp, palpitations. UOP low. Exam/Review of Systems Vital Signs Vitals Vital Signs Date Time Temp Pulse Resp B/P Pulse Ox O2 Delivery O2 Flow Rate FiO2 05/03/17 16:00 151 05/03/17 11:39 17 91/67 94 Nasal Cannula 5.0 05/03/17 10:18 99.4 05/03/17 04:30 70 Intake and Output 05/02/17 05/02/17 05/03/17 15:00 23:00 07:00 Intake Total 1050 ml 375 ml Balance 1050 ml 375 ml Exam Free Text/Dictation Constitutional: alert, no distress, oriented Psych: anxiety Head: atraumatic, normocephalic, other (left head wound (shunt) with scant clear drainage) Eyes: nl lids, nl sclera ENMT: mucosa pink and moist, nl nasal mucosa & septum Neck: non-tender Respiratory: diminished breath sounds; comfortable on nc Cardiovascular: other (tachycardic) ST Gastrointestinal: distended, tender LUQ No rebound or guarding Musculoskeletal: other: r aka, stump clean Neurological: nl mental status, nl speech Skin: nl turgor Results Result Diagram: 05/03/17 0300 05/03/17 1204 JEB LIRIANO NP May 03, 2017 16:57
[2017-05-03] MEDS ORDERED: BISACODYL 10 MG SUPP PR PRN (17:00)
[2017-05-03] MEDS ORDERED: INSULIN ASPART [NOVOLOG] 3 ML PEN SC ONE ×2 (17:00)
[2017-05-03] MEDS: PHENYLephrine 80 MG in DEXTROSE 5% 242 ML IV SCH (17:22)
[2017-05-03] MEDS ORDERED: ADENOSINE 6 MG INJ IV ONE (18:00)
[2017-05-03] MEDS ORDERED: ADENOSINE 3 MG/ML SYRINGE IV ONE (18:00)
--- NOTE | 2017-05-03 18:04 | CONS ---
Date/Time of Note Date/Time of Note DATE: 05/03/17 TIME: 17:42 Assessment/Plan Assessment/Plan Additional Assessment/Plan IMP: 1. Shock--etiology unclear. He clearly has pancreatitis, which can cause SIRS, however, shock is very unusual. Therefore, concern that he may have aflutter with 2: 1 block and some of hypotension may be due to that. Also possibility of hypovolemia in the setting of pancreatitis 2. Severe Pancreatitis--concern for abdominal compartment syndrome 3. Severe Metabolic Acidosis due to renal failure 4. Acute on chronic renal failure RECS: 1. IV NaHCO3 3 amps gtt 2. IV abx with meropenem 3. NPO 4. Measure bladder pressures 5. Needs HD 6. Adenosine x 1 ruled out possibility of flutter with 2:1 7. Observe closely in icu Consultation Date/Type/Reason Admit Date/Time May 03, 2017 at 12:49 Type of Consultation: Pulm/CCM Hx of Present Illness Briefly, this is a 67-year-old gentleman with multiple complicated medical history who was brought in from a senior care facility due to constipation and abdominal discomfort. Workup has shown severe sepsis, shock, and severe pancreatitis. The patient has been tachycardic. Heart rate has been as high as 160. He complains of diffuse abdominal pain. Constitutional: improved, no complaints, No chills, No febrile Eyes: no complaints, No discharge, No visual change ENT: no complaints, No congestion Respiratory: no complaints, No cough, No shortness of breath Cardiovascular: no complaints, No chest pain, No edema Gastrointestinal: constipation, no complaints, pain Genitourinary: no complaints, No dysuria Musculoskeletal: no complaints, No back pain Skin: no complaints, No bruising, No rash Neurologic: no complaints, No confusion Endocrine: no complaints Lymphatic: no complaints Psychological: anxiety, no complaints Past Medical History CVA CKD PAD Medical History: coronary artery disease, diabetes Family History Significant Family History: no pertinent family hx Social History Alcohol Use: none Smoking Status: Never smoker Drug Use: none Exam/Review of Systems Vital Signs Vitals Vital Signs Date Time Temp Pulse Resp B/P Pulse Ox O2 Delivery O2 Flow Rate FiO2 05/03/17 16:00 151 05/03/17 11:39 17 91/67 94 Nasal Cannula 5.0 05/03/17 10:18 99.4 05/03/17 04:30 70 Intake and Output 05/02/17 05/02/17 05/03/17 15:00 23:00 07:00 Intake Total 1050 ml 375 ml Balance 1050 ml 375 ml Exam Constitutional: alert, oriented, well developed Psych: nl mood/affect, no complaints Head: atraumatic, normocephalic Eyes: EOMI, nl conjunctiva, nl lids, nl sclera ENMT: mucosa pink and moist, nl external ears & nose, nl lips & teeth, nl nasal mucosa & septum Neck: non-tender, supple Respiratory: clear to auscultation, diminished breath sounds, normal air movement Cardiovascular: other (tachy s1 and s1) Gastrointestinal: distended, firm, nl liver, spleen, non-tender, tender Musculoskeletal: nl extremities to inspection Extremities: normal pulses Results Result Diagram: 05/03/17 0300 05/03/17 1204 Results 24 hrs Laboratory Tests Test 05/02/17 18:00 05/02/17 18:50 05/02/17 19:12 05/02/17 20:04 Bedside Glucose 231 H 192 192 Blood Gas Specimen Source Blood arterial Arterial Blood Date Drawn 05/02/2017 8:07:26 PM Arterial Blood pH (Temp corrected) 7.244 *L Arterial Blood pCO2 (Temp correct) 24.4 L Arterial Blood pO2 (Temp corrected) 145.1 H Arterial Blood HCO3 10.3 L Arterial Blood Base Excess -15.1 L Arterial Blood Oxygen Saturation 98.6 H Marcos Test N/A Arterial Blood Gas Puncture Site Right Brachial Arterial Blood Carboxyhemoglobin 0.3 Arterial Blood Methemoglobin 0.9 Blood Gas A-a O2 Differential 255.9 H Oxyhemoglobin Percent 97.4 Total Hemoglobin 14.8 Blood Gas Temperature 37.0 Blood Gas Respiration Rate 18.0 Blood Gas Actual Respiration Rate 27 Blood Gas Modality MASK - BIPAP FiO2 60.0 Blood Gas IPAP/EPAP Ratio 15/5 Blood Gas Critical Value Read Back Jessica ARELLANO MD Blood Gas Notified Whom MG Blood Gas Notified Time 05/02/2017 8:12:18 PM Test 05/02/17 20:10 05/02/17 21:10 05/02/17 22:07 05/02/17 23:12 Sodium Level 139 Potassium Level 4.2 Chloride Level 111 H Carbon Dioxide Level 13 L Anion Gap 19 H Blood Urea Nitrogen 83 H Creatinine 6.18 H Glucose Level 214 # Calcium Level 8.0 L Bedside Glucose 205 174 128 Test 05/03/17 00:15 05/03/17 00:25 05/03/17 01:09 05/03/17 02:02 Sodium Level 140 Potassium Level 4.1 Chloride Level 111 H Carbon Dioxide Level 15 L Anion Gap 18 H Blood Urea Nitrogen 84 H Creatinine 6.18 H Glucose Level 120 # Calcium Level 7.4 L Bedside Glucose 116 98 135 Test 05/03/17 03:00 05/03/17 03:06 05/03/17 03:40 05/03/17 04:17 White Blood Count 12.1 #H Red Blood Count 4.14 L Hemoglobin 13.2 L Hematocrit 38.6 L Mean Corpuscular Volume 93.2 Mean Corpuscular Hemoglobin 31.9 Mean Corpuscular Hemoglobin Concent 34.2 Red Cell Distribution Width 15.4 H Platelet Count 84 L Mean Platelet Volume 11.4 H Neutrophils % 79.3 H Lymphocytes % 9.1 L Monocytes % 10.3 Eosinophils % 0.2 Basophils % 0.2 Nucleated Red Blood Cells % 0.0 Neutrophils # 9.6 H Lymphocytes # 1.1 Monocytes # 1.2 H Eosinophils # 0.0 Basophils # 0.0 Nucleated Red Blood Cells # 0.0 Sodium Level 139 Potassium Level 4.1 Chloride Level 111 H Carbon Dioxide Level 16 L Anion Gap 16 Blood Urea Nitrogen 85 H Creatinine 6.40 H Glucose Level 102 Calcium Level 7.5 L Phosphorus Level 5.3 H Magnesium Level 1.3 L Total Bilirubin 0.5 Direct Bilirubin 0.00 Indirect Bilirubin 0.5 Aspartate Amino Transf (AST/SGOT) 99 H Alanine Aminotransferase (ALT/SGPT) 41 Alkaline Phosphatase 74 Total Protein 6.5 Albumin 3.0 L Globulin 3.50 H Albumin/Globulin Ratio 0.85 Bedside Glucose 111 88 Activated Partial Thromboplast Time 31.4 Test 05/03/17 05:20 05/03/17 05:32 05/03/17 06:19 05/03/17 07:06 Bedside Glucose 87 97 106 Lactic Acid Level 2.5 *H Test 05/03/17 08:17 05/03/17 09:25 05/03/17 09:47 05/03/17 11:03 Bedside Glucose 122 208 225 H Blood Gas Specimen Source Blood arterial Arterial Blood Date Drawn 05/03/2017 9:36:11 AM Arterial Blood pH (Temp corrected) 7.231 *L Arterial Blood pCO2 (Temp correct) 23.3 L Arterial Blood pO2 (Temp corrected) 75.5 L Arterial Blood HCO3 9.6 *L Arterial Blood Base Excess -16.1 L Arterial Blood Oxygen Saturation 94.7 L Marcos Test ACCEPTAB Arterial Blood Gas Puncture Site Right Radial Arterial Blood Carboxyhemoglobin 0.3 Arterial Blood Methemoglobin 0.6 Blood Gas A-a O2 Differential 175.7 H Oxyhemoglobin Percent 93.8 Total Hemoglobin 13.4 Blood Gas Temperature 37.0 Blood Gas Modality NASAL CANNULA FiO2 39.0 Blood Gas Critical Value Read Back DR. ARELLANO Blood Gas Notified Whom RT Blood Gas Notified Time 05/03/2017 9:47:00 AM Test 05/03/17 12:04 05/03/17 13:06 05/03/17 14:49 05/03/17 16:05 Sodium Level 134 L Potassium Level 5.1 Chloride Level 111 H Carbon Dioxide Level 12 L Anion Gap 16 Blood Urea Nitrogen 85 H Creatinine 6.70 H Glucose Level 256 #H Calcium Level 7.5 L Triglycerides Level 79 Lipase 3719 H Bedside Glucose 263 H 279 H 399 H Medications Medications Current Medications Ondansetron HCl (Zofran Inj) 4 mg Q6H PRN IV NAUSEA AND/OR VOMITING Last administered on 05/03/17 08:47; Admin Dose 4 MG; Start 05/02/17 at 19:00 Lorazepam (Ativan) 0.5 mg Q2H PRN IV ANXIETY; Start 05/02/17 at 19:00 Pantoprazole 40 mg 40 mg DAILY@06 IV Last administered on 05/03/17 06:21; Admin Dose 40 MG; Start 05/03/17 at 06:00 Meropenem/Sodium Chloride 50 ml @ 100 mls/hr Q24H IVPB Last administered on 20:00; Admin Dose 100 MLS/HR; Start 05/02/17 at 20:00 Norepinephrine (Levophed) 250 ml @ 1.875 mls/ hr TITRATE IV Last administered on 05/03/17 13:05; Admin Dose 37.5 MLS/HR; Start 05/02/17 at 19:00; Stop at 23:00 Hydromorphone HCl (Dilaudid) 1 mg Q4H PRN IV PAIN LEVEL 7-10 Last administered on 05/03/17 10:45; Admin Dose 1 MG; Start 05/02/17 at 23:00 Miscellaneous Information (*Rx Drug Level Order Reminder*) RANDOM VANCOMYCIN LEVEL 1... ONCE ONCE XX ; Start 05/04/17 at 05:00; Stop 05/04/17 at 05:01 Insulin Glargine (Lantus) 10 unit Q12 SC ; Start 05/03/17 at 21:00 Insulin Aspart NOVOLOG *MODERATE* ALGORI... Q2 SC Last administered on 16:10; Admin Dose 12 UNIT; Start 05/03/17 at 14:30 Sodium Bicarbonate/ Dextrose (Na Bicarb/D5W) 1,100 ml @ 150 mls/hr Q7H20M IV Last administered on 05/03/17 14:40; Admin Dose 150 MLS/HR; Start 05/03/17 at 15:00 Miscellaneous Information 1 ea NOTE XX ; Start 05/03/17 at 14:00 Glucose (Glutose) 15 gm Q15M PRN PO DECREASED GLUCOSE; Start 05/03/17 at 14:00 Glucose (Glutose) 22.5 gm Q15M PRN PO DECREASED GLUCOSE; Start 05/03/17 at 14: 00 Dextrose (D50w Syringe) 25 ml Q15M PRN IV DECREASED GLUCOSE; Start 05/03/17 at 14:00 Dextrose (D50w Syringe) 50 ml Q15M PRN IV DECREASED GLUCOSE; Start 05/03/17 at 14:00 Glucagon (Glucagen) 1 mg Q15M PRN IM DECREASED GLUCOSE; Start 05/03/17 at 14:00 Glucose (Glutose) 15 gm Q15M PRN BUCCAL DECREASED GLUCOSE; Start 05/03/17 at 14 :00 Bisacodyl 10 mg 10 mg DAILY PRN OR CONSTIPATION; Start 05/03/17 at 17:00 Phenylephrine HCl 80 mg/Dextrose 250 ml @ 0 mls/hr TITRATE IV Last administered on 05/03/17 17:22; Admin Dose 3.75 MLS/HR; Start 05/03/17 at 17:00 Norepinephrine/ Dextrose (Levophed/D5W) 500 ml @ 1.87 mls/hr TITRATE IV ; Start 05/03/17 at 17:30 GALLO LOZANO MD May 03, 2017 17:52
[2017-05-03] MEDS ORDERED: PENDING SANTYL ORDER FOR WOUND CARE XX PRN (19:00)
[2017-05-03] MEDS: SODIUM BICARBONATE (IV ADD) 150 MEQ in DEXTROSE 5% 1,000 ML IV SCH (19:50)
[2017-05-03 20:56] LABS: CALCIUM 7.4 mg/dl (8.4-10.2); CREATININE 7.21 mg/dl (0.61-1.24); POTASSIUM 4.8 mmol/L (3.5-5.1)
[2017-05-03] MEDS: MEROPENEM 1 GM/50ML(PMX) 50 ML IVPB SCH (21:29)
[2017-05-03] MEDS: INSULIN GLARGINE [LANtus] 3 ML PEN SC SCH (21:49)
[2017-05-04] VITALS (90 sets, daily range): BP systolic 75–134; BP diastolic 40–98; PULSE 86–136; RESP 13–31
[2017-05-04] MEDS: INSULIN ASPART [NOVOLOG] 3 ML PEN SC SCH ×12 (00:14→21:35)
[2017-05-04] MEDS: HYDROmorphONE 1 MG/ML SYG IV PRN ×3 (02:28→21:27)
[2017-05-04] MEDS: SODIUM BICARBONATE (IV ADD) 150 MEQ in DEXTROSE 5% 1,000 ML IV SCH ×3 (03:26→18:30)
[2017-05-04 04:43] LABS: ABNORMAL IP MESSAGE 1; HEMATOCRIT 32.1 % (42.0-52.0); HEMOGLOBIN 11.1 g/dl (14.0-18.0); MEAN CORPUSCULAR HGB CONC 34.6 g/dl (32.0-37.0); MEAN CORPUSCULAR VOLUME 92.5 fl (82.0-101.0); PLATELET COUNT 96 10^3/UL (140-415); POSITIVE DIFF @See below; RED BLOOD COUNT 3.47 10^6/ul (4.70-6.10); RED CELL DISTRIBUTION WIDTH 15.3 % (11.5-14.5); WHITE BLOOD COUNT 14.9 10^3/ul (4.8-10.8)
[2017-05-04 04:59] LABS: MAGNESIUM 1.6 mg/dl (1.7-2.5); PHOSPHORUS 6.2 mg/dl (2.5-4.9)
[2017-05-04 05:20] LABS: AADO2 Arterial 144.6 mmHg (7.0-24.0); Arterial Base Excess -8.3 mmol/L (-3.0-3); Arterial COHb 0.6 % (0.0-3.0); Arterial Fraction of Oxyhgb 94.1 % (93.0-99.0); Arterial MetHb 0.3 % (0.0-1.5); Arterial Total Hemglobin 12.2 g/dl (12.0-18.0); MODE NASAL CANNULA
[2017-05-04] MEDS: PHENYLephrine 80 MG in DEXTROSE 5% 242 ML IV SCH ×2 (05:38→17:15)
[2017-05-04] MEDS: PANTOPRAZOLE 40 MG INJ IV SCH (06:41)
[2017-05-04 07:26] LABS: ALBUMIN 2.2 g/dl (3.3-4.9); ALBUMIN/GLOBULIN RATIO 0.81; BILIRUBIN,INDIRECT 0.2 mg/dl (0-1.1); BILIRUBIN,TOTAL 0.2 mg/dl (0.2-1.3); CALCIUM 7.2 mg/dl (8.4-10.2); CREATININE 7.08 mg/dl (0.61-1.24); POTASSIUM 4.3 mmol/L (3.5-5.1); TOTAL PROTEIN 4.9 g/dl (6.1-8.1)
--- NOTE | 2017-05-04 07:52 | RADRPT ---
PROCEDURE: XR Chest. CLINICAL INDICATION: pain TECHNIQUE: Single portable view of the chest was obtained COMPARISON: CHEST 05/02/2017 FINDINGS: The heart, lungs and mediastinum are unchanged. There are low lung volumes with bibasilar atelectati c changes. There is mild cardiomegaly. There is no pleural effusion or pneumothorax. There is a righ t-sided PICC line in place.. RPTAT: AA IMPRESSION: No significant change. Low lung volumes with bibasilar atelectasis. .Mario Hill MD, MD Date Time Electronically viewed and signed by .Mario Hill MD, on 05/04/2017 07:52 .S/
[2017-05-04] MEDS: INSULIN GLARGINE [LANtus] 3 ML PEN SC SCH ×2 (09:23→21:36)
[2017-05-04 09:38] LABS: ANISOCYTOSIS 1+ (0-0); ERYTHROBLAST% (NRBC) (M) 1 % (0-0); GIANT THROMBO% (M) 1 % (0-0); HYPOCHROMASIA 1+ (0-0); METAMYELOCYTES %M 1 % (0-0); MONOCYTES % (M) 7 % (0-11); PLATELET ESTIMATE DECREASED; POIKILOCYTOSIS 3+ (0-0); POLYCHROMASIA 1+ (0-0)
[2017-05-04] MEDS ORDERED: VANCOMYCIN 1 GM in NS 250 ML IVPB SCH (10:00)
[2017-05-04] MEDS ORDERED: MAGNESIUM SULFATE 2 GM/50 ML 50 ML IVPB ONE (10:00)
--- NOTE | 2017-05-04 10:05 | PN ---
Date/Time of Note Date/Time of Note DATE: 05/04/17 TIME: 10:01 Assessment/Plan VTE Prophylaxis VTE Prophylaxis Intervention: other Lines/Catheters IV Catheter Type (from Nrs): Saline Lock Central line still needed: Yes Urinary Cath still in place: Yes Reason Cath still needed: urinary retention Assessment/Plan Chief Complaint/Hosp Course HISTORY OF PRESENT ILLNESS: Thank you for this referral. History was obtained from the patient partially, from extensive review of the old chart, discussion with staff. This is an unfortunate 67-year-old gentleman with multiple complicated medical history who was brought in from a [facility] facility due to constipation and abdominal discomfort. Workup has shown severe sepsis, shock , and severe pancreatitis. The patient has been tachycardic. Heart rate has been as high as 160. He complains of diffuse abdominal pain. No chest pain or pressure. Denies any shortness of breath at this point. He has arf with baselin creatinine of 1.3 Imaging studies showed renal mass but no obstruction He is currently on pressors and ivf with stable bp seen in ICU d/w pulm arf is worse and he is more uremic. He is also anuric no nausea, vomiting, new rash, hematuria, melena, diaphoresis or fever cxr reviewed PHYSICAL EXAMINATION: HEENT: Normocephalic, atraumatic. No acute respiratory distress. Eyes: Pupils are equal. CARDIOVASCULAR: Tachycardic. PULMONARY: With no wheeze anteriorly. GASTROINTESTINAL: Distended, positive tender to palpation. Very diffuse tenderness and mild guarding, no rebound. EXTREMITIES: Positive right lower extremity BKA. NEUROLOGIC: He is awake, responds appropriately, with one-sided weakness. PSYCHIATRIC: Appears to be calm. ASSESSMENT AND PLAN: 1. ARF due to ATN. unfortunately he remains anuric with further decline in renal function. imaging studies were reviewed. continue IVF and pressors. keep MAP > 60. will need HD today after line placement by Dr Howell 2. Severe sepsis and septic shock. on abx and pressors 3. Severe pancreatitis. 4. Diabetes. 7. Severe metabolic acidosis. improving. ABG reviewed 8. Hypertension, currently in shock and hypotensive. 9. History of dyslipidemia. 10. History of below-knee amputation. 11. History of craniotomy and meningioma, status post craniotomy. 12. History of seizure disorder. Problems: Exam/Review of Systems Vital Signs Vitals Vital Signs Date Time Temp Pulse Resp B/P Pulse Ox O2 Delivery O2 Flow Rate FiO2 05/04/17 09:45 115 18 118/76 94 05/04/17 08:00 98.7 05/04/17 06:02 5.0 05/04/17 06:00 Nasal Cannula 05/03/17 20:07 36 Intake and Output 05/03/17 05/03/17 05/04/17 15:00 23:00 07:00 Intake Total 113.0 ml 630.5 ml 2080.8 ml Output Total 75 ml 120 ml 160 ml Balance 38.0 ml 510.5 ml 1920.8 ml Results Result Diagram: 05/04/17 0415 05/04/17 0415 Results 24 hrs Laboratory Tests Test 05/03/17 11:03 05/03/17 12:04 05/03/17 13:06 05/03/17 14:49 Bedside Glucose 225 H 263 H 279 H Sodium Level 134 L Potassium Level 5.1 Chloride Level 111 H Carbon Dioxide Level 12 L Anion Gap 16 Blood Urea Nitrogen 85 H Creatinine 6.70 H Glucose Level 256 #H Calcium Level 7.5 L Triglycerides Level 79 Lipase 3719 H Test 05/03/17 16:05 05/03/17 19:23 05/03/17 20:19 05/03/17 21:31 Bedside Glucose 399 H 245 H 260 H Sodium Level 132 L Potassium Level 4.8 Chloride Level 106 Carbon Dioxide Level 16 L Anion Gap 15 Blood Urea Nitrogen 91 H Creatinine 7.21 H Glucose Level 275 H Calcium Level 7.4 L Test 05/04/17 00:10 05/04/17 01:42 05/04/17 03:28 05/04/17 04:00 Bedside Glucose 290 H 249 H 233 H Random Vancomycin Level 13.6 Test 05/04/17 04:15 05/04/17 05:00 05/04/17 06:35 05/04/17 09:14 White Blood Count 14.9 #H Red Blood Count 3.47 L Hemoglobin 11.1 L Hematocrit 32.1 L Mean Corpuscular Volume 92.5 Mean Corpuscular Hemoglobin 32.0 Mean Corpuscular Hemoglobin Concent 34.6 Red Cell Distribution Width 15.3 H Platelet Count 96 L Mean Platelet Volume 11.0 H Neutrophils % Segmented Neutrophils % (Manual) 43 Band Neutrophils % (Manual) 47 H Lymphocytes % Lymphocytes % (Manual) 2 L Monocytes % Monocytes % (Manual) 7 Eosinophils % Basophils % Metamyelocytes % (manual) 1 H Nucleated Red Blood Cells % 1 H Neutrophils # Neutrophils # (Manual) 7.5 Band Neutrophils # 7.0 H Absolute Lymphocytes (Manual) 0.2 L Lymphocytes # Monocytes # Absolute Monocytes (Manual) 1.0 H Eosinophils # Basophils # Metamyelocytes # 0.1 H Nucleated Red Blood Cells # Platelet Estimate DECREASED Giant Platelets 1 H Dimorphic Red Blood Cells 2+ Polychromasia 1+ Hypochromasia 1+ Poikilocytosis 3+ Anisocytosis 1+ Sodium Level 133 L Potassium Level 4.3 Chloride Level 104 Carbon Dioxide Level 19 L Anion Gap 14 Blood Urea Nitrogen 97 H Creatinine 7.08 H Glucose Level 247 H Lactic Acid Level 1.3 Calcium Level 7.2 L Phosphorus Level 6.2 H Magnesium Level 1.6 L Total Bilirubin 0.2 Direct Bilirubin 0.00 Indirect Bilirubin 0.2 Aspartate Amino Transf (AST/SGOT) 45 # Alanine Aminotransferase (ALT/SGPT) 37 Alkaline Phosphatase 77 Total Protein 4.9 #L Albumin 2.2 L Globulin 2.70 Albumin/Globulin Ratio 0.81 Lipase 1157 H Blood Gas Specimen Source Blood arterial Arterial Blood Date Drawn 05/04/2017 5:00:46 AM Arterial Blood pH (Temp corrected) 7.353 Arterial Blood pCO2 (Temp correct) 29.4 L Arterial Blood pO2 (Temp corrected) 78.0 L Arterial Blood HCO3 16.0 L Arterial Blood Base Excess -8.3 L Arterial Blood Oxygen Saturation 95.0 Marcos Test N/A Arterial Blood Gas Puncture Site LB Arterial Blood Carboxyhemoglobin 0.6 Arterial Blood Methemoglobin 0.3 Blood Gas A-a O2 Differential 144.6 H Oxyhemoglobin Percent 94.1 Total Hemoglobin 12.2 Blood Gas Temperature 37.0 Blood Gas Respiration Rate 19.0 Blood Gas Modality NASAL CANNULA FiO2 36.0 Blood Gas Notified Whom UP Blood Gas Notified Time 05/04/2017 5:20:29 AM Bedside Glucose 214 223 H Medications Medications Current Medications Ondansetron HCl (Zofran Inj) 4 mg Q6H PRN IV NAUSEA AND/OR VOMITING Last administered on 05/03/17t 08:47; Admin Dose 4 MG; Start 05/02/17 at 19:00 Lorazepam (Ativan) 0.5 mg Q2H PRN IV ANXIETY; Start 05/02/17 at 19:00 Pantoprazole 40 mg 40 mg DAILY@06 IV Last administered on 05/04/17 06:41; Admin Dose 40 MG; Start 05/03/17 at 06:00 Meropenem/Sodium Chloride (Merrem 1 Gm/50 ml (Pmx)) 50 ml @ 100 mls/hr Q24H IVPB Last administered on 05/03/17 21:29; Admin Dose 100 MLS/HR; Start at 20:00 Hydromorphone HCl (Dilaudid) 1 mg Q4H PRN IV PAIN LEVEL 7-10 Last administered on 05/04/17 02:28; Admin Dose 1 MG; Start 05/02/17 at 23:00 Insulin Glargine (Lantus) 10 unit Q12 SC Last administered on 05/04/17 09:23; Admin Dose 10 UNIT; Start 05/03/17 at 21:00 Insulin Aspart (Novolog Insulin Pen) NOVOLOG *MODERATE* ALGORI... Q2 SC Last administered on 05/04/17 09:18; Admin Dose 6 UNIT; Start 05/03/17 at 14:30 Miscellaneous Information 1 ea NOTE XX ; Start 05/03/17 at 14:00 Glucose (Glutose) 15 gm Q15M PRN PO DECREASED GLUCOSE; Start 05/03/17 at 14:00 Glucose (Glutose) 22.5 gm Q15M PRN PO DECREASED GLUCOSE; Start 05/03/17 at 14: 00 Dextrose (D50w Syringe) 25 ml Q15M PRN IV DECREASED GLUCOSE; Start 05/03/17 at 14:00 Dextrose (D50w Syringe) 50 ml Q15M PRN IV DECREASED GLUCOSE; Start 05/03/17 at 14:00 Glucagon (Glucagen) 1 mg Q15M PRN IM DECREASED GLUCOSE; Start 05/03/17 at 14:00 Glucose (Glutose) 15 gm Q15M PRN BUCCAL DECREASED GLUCOSE; Start 05/03/17 at 14 :00 Bisacodyl 10 mg 10 mg DAILY PRN [place] CONSTIPATION; Start 05/03/17 at 17:00 Phenylephrine HCl 80 mg/Dextrose 250 ml @ 0 mls/hr TITRATE IV Last administered on 05/04/17 05:38; Admin Dose 22.4 MLS/HR; Start 05/03/17 at 17:00 Norepinephrine 16 mg/Dextrose 500 ml @ 1.87 mls/hr TITRATE IV ; Start 05/03/17 at 17:30 Sodium Bicarbonate/ Dextrose (Na Bicarb/D5W) 1,150 ml @ 150 mls/hr Q7H40M IV Last administered on 05/04/17 03:26; Admin Dose 150 MLS/HR; Start 05/03/17 at 19:30 Miscellaneous Information This patient bustillo... PRN PRN XX WOUND CARE; Start 05/03 at 19:00 Vancomycin HCl 250 ml @ 125 mls/hr Q96H IVPB Last administered on 05/04/17 09 :42; Admin Dose 125 MLS/HR; Start 05/04/17 at 10:00 Magnesium Sulfate (Magnesium Sulfate 2 Gm/50 ml) 50 ml @ 25 mls/hr ONCE ONCE IVPB ; Start 05/04/17 at 10:00; Stop 05/04/17 at 11:59; Status ESEQUIEL VAZQUEZ DO May 04, 2017 10:05
--- NOTE | 2017-05-04 13:18 | CONS ---
Date/Time of Note Date/Time of Note DATE: 05/04/17 TIME: 13:13 Consult Date/Type/Reason Admit Date/Time May 03, 2017 at 12:49 Initial Consult Date 05/03/17 Type of Consultation: Pulm/CCM Ordering Provider: BRYAN MINOR DO Subjective Remains on neosynephrine gtt. C/O abdominal pain. HR better at 110's Objective Vital Signs Date Time Temp Pulse Resp B/P Pulse Ox O2 Delivery O2 Flow Rate FiO2 05/04/17 13:00 110 18 117/70 92 05/04/17 10:00 5.0 40 05/04/17 08:00 Nasal Cannula 05/04/17 08:00 98.7 Intake and Output 05/03/17 05/03/17 05/04/17 15:00 23:00 07:00 Intake Total 113.0 ml 630.5 ml 2080.8 ml Output Total 75 ml 120 ml 160 ml Balance 38.0 ml 510.5 ml 1920.8 ml Exam HEENT: Neck supple; no JVD; no LAD CVS: Tachy, S1 and S2 CHEST: Decreased breath sounds at bases ABD: Distended, +tender to palpation; + BS EXT: No c/c/e Results/Medications Result Diagram: 05/04/17 0415 05/04/17 0415 Results 24 hrs Laboratory Tests Test 05/03/17 14:49 05/03/17 16:05 05/03/17 19:23 05/03/17 20:19 Bedside Glucose 279 H 399 H 245 H Sodium Level 132 L Potassium Level 4.8 Chloride Level 106 Carbon Dioxide Level 16 L Anion Gap 15 Blood Urea Nitrogen 91 H Creatinine 7.21 H Glucose Level 275 H Calcium Level 7.4 L Test 05/03/17 21:31 05/04/17 00:10 05/04/17 01:42 05/04/17 03:28 Bedside Glucose 260 H 290 H 249 H 233 H Test 05/04/17 04:00 05/04/17 04:15 05/04/17 05:00 05/04/17 06:35 Random Vancomycin Level 13.6 White Blood Count 14.9 #H Red Blood Count 3.47 L Hemoglobin 11.1 L Hematocrit 32.1 L Mean Corpuscular Volume 92.5 Mean Corpuscular Hemoglobin 32.0 Mean Corpuscular Hemoglobin Concent 34.6 Red Cell Distribution Width 15.3 H Platelet Count 96 L Mean Platelet Volume 11.0 H Neutrophils % Segmented Neutrophils % (Manual) 43 Band Neutrophils % (Manual) 47 H Lymphocytes % Lymphocytes % (Manual) 2 L Monocytes % Monocytes % (Manual) 7 Eosinophils % Basophils % Metamyelocytes % (manual) 1 H Nucleated Red Blood Cells % 1 H Neutrophils # Neutrophils # (Manual) 7.5 Band Neutrophils # 7.0 H Absolute Lymphocytes (Manual) 0.2 L Lymphocytes # Monocytes # Absolute Monocytes (Manual) 1.0 H Eosinophils # Basophils # Metamyelocytes # 0.1 H Nucleated Red Blood Cells # Platelet Estimate DECREASED Giant Platelets 1 H Dimorphic Red Blood Cells 2+ Polychromasia 1+ Hypochromasia 1+ Poikilocytosis 3+ Anisocytosis 1+ Sodium Level 133 L Potassium Level 4.3 Chloride Level 104 Carbon Dioxide Level 19 L Anion Gap 14 Blood Urea Nitrogen 97 H Creatinine 7.08 H Glucose Level 247 H Lactic Acid Level 1.3 Calcium Level 7.2 L Phosphorus Level 6.2 H Magnesium Level 1.6 L Total Bilirubin 0.2 Direct Bilirubin 0.00 Indirect Bilirubin 0.2 Aspartate Amino Transf (AST/SGOT) 45 # Alanine Aminotransferase (ALT/SGPT) 37 Alkaline Phosphatase 77 Total Protein 4.9 #L Albumin 2.2 L Globulin 2.70 Albumin/Globulin Ratio 0.81 Lipase 1157 H Blood Gas Specimen Source Blood arterial Arterial Blood Date Drawn 05/04/2017 5:00:46 AM Arterial Blood pH (Temp corrected) 7.353 Arterial Blood pCO2 (Temp correct) 29.4 L Arterial Blood pO2 (Temp corrected) 78.0 L Arterial Blood HCO3 16.0 L Arterial Blood Base Excess -8.3 L Arterial Blood Oxygen Saturation 95.0 Marcos Test N/A Arterial Blood Gas Puncture Site LB Arterial Blood Carboxyhemoglobin 0.6 Arterial Blood Methemoglobin 0.3 Blood Gas A-a O2 Differential 144.6 H Oxyhemoglobin Percent 94.1 Total Hemoglobin 12.2 Blood Gas Temperature 37.0 Blood Gas Respiration Rate 19.0 Blood Gas Modality NASAL CANNULA FiO2 36.0 Blood Gas Notified Whom UP Blood Gas Notified Time 05/04/2017 5:20:29 AM Bedside Glucose 214 Test 05/04/17 09:14 05/04/17 11:38 05/04/17 12:40 Bedside Glucose 223 H 237 H 201 Medications Current Medications Ondansetron HCl (Zofran Inj) 4 mg Q6H PRN IV NAUSEA AND/OR VOMITING Last administered on 05/03/17 08:47; Admin Dose 4 MG; Start 05/02/17 at 19:00 Lorazepam (Ativan) 0.5 mg Q2H PRN IV ANXIETY; Start 05/02/17 at 19:00 Pantoprazole 40 mg 40 mg DAILY@06 IV Last administered on 05/04/17 06:41; Admin Dose 40 MG; Start 05/03/17 at 06:00 Meropenem/Sodium Chloride (Merrem 1 Gm/50 ml (Pmx)) 50 ml @ 100 mls/hr Q24H IVPB Last administered on 05/03/17 21:29; Admin Dose 100 MLS/HR; Start at 20:00 Hydromorphone HCl (Dilaudid) 1 mg Q4H PRN IV PAIN LEVEL 7-10 Last administered on 05/04/17 02:28; Admin Dose 1 MG; Start 05/02/17 at 23:00 Insulin Aspart (Novolog Insulin Pen) NOVOLOG *MODERATE* ALGORI... Q2 SC Last administered on 05/04/17 12:43; Admin Dose 4 UNIT; Start 05/03/17 at 14:30 Miscellaneous Information 1 ea NOTE XX ; Start 05/03/17 at 14:00 Glucose (Glutose) 15 gm Q15M PRN PO DECREASED GLUCOSE; Start 05/03/17 at 14:00 Glucose (Glutose) 22.5 gm Q15M PRN PO DECREASED GLUCOSE; Start 05/03/17 at 14: 00 Dextrose (D50w Syringe) 25 ml Q15M PRN IV DECREASED GLUCOSE; Start 05/03/17 at 14:00 Dextrose (D50w Syringe) 50 ml Q15M PRN IV DECREASED GLUCOSE; Start 05/03/17 at 14:00 Glucagon (Glucagen) 1 mg Q15M PRN IM DECREASED GLUCOSE; Start 05/03/17 at 14:00 Glucose (Glutose) 15 gm Q15M PRN BUCCAL DECREASED GLUCOSE; Start 05/03/17 at 14 :00 Bisacodyl 10 mg 10 mg DAILY PRN [place] CONSTIPATION; Start 05/03/17 at 17:00 Phenylephrine HCl 80 mg/Dextrose 250 ml @ 0 mls/hr TITRATE IV Last administered on 05/04/17 05:38; Admin Dose 22.4 MLS/HR; Start 05/03/17 at 17:00 Norepinephrine 16 mg/Dextrose 500 ml @ 1.87 mls/hr TITRATE IV ; Start 05/03/17 at 17:30 Sodium Bicarbonate/ Dextrose (Na Bicarb/D5W) 1,150 ml @ 150 mls/hr Q7H40M IV Last administered on 05/04/17 12:36; Admin Dose 150 MLS/HR; Start 05/03/17 at 19:30 Miscellaneous Information This patient bustillo... PRN PRN XX WOUND CARE; Start 05/03 at 19:00 Vancomycin HCl (Vancocin) 250 ml @ 125 mls/hr Q96H IVPB Last administered on 05/04/17 09:42; Admin Dose 125 MLS/HR; Start 05/04/17 at 10:00 Insulin Glargine (Lantus) 15 unit Q12 SC ; Start 05/04/17 at 21:00 Assessment/Plan Chief Complaint/Hosp Course Briefly, this is a 67-year-old gentleman with multiple complicated medical history who was brought in from a half-way facility due to constipation and abdominal discomfort. Workup has shown severe sepsis, shock, and severe pancreatitis. The patient has been tachycardic. Heart rate has been as high as 160. He complains of diffuse abdominal pain. Problems: Additional Assessment/Plan IMP: 1. Shock--etiology unclear. He clearly has pancreatitis, which can cause SIRS, however, shock is very unusual. Persistent possibility of hypovolemia in the setting of pancreatitis contributing. 2. Severe Pancreatitis--moderate concern for abdominal compartment syndrome 3. Severe Metabolic Acidosis due to renal failure 4. Acute on chronic renal failure RECS: 1. Continue D5W with NaHCO3 3 amps gtt 2. IV abx with meropenem 3. NPO 4. Measure bladder pressures 5. Bolus of albumin now as urine output is picking up to see if we can avert need for HD 6. Monitor closely in ICU 40 min cc time GALLO LOZANO MD May 04, 2017 13:18
[2017-05-04] MEDS ORDERED: ALBUMIN HUMAN 25% 100 ML ONE (13:19)
[2017-05-04] MEDS ORDERED: ALBUMIN HUMAN 25% 100 ML IV ONE (13:30)
--- NOTE | 2017-05-04 13:41 | CONS ---
Date/Time of Note Date/Time of Note DATE: 05/04/17 TIME: 13:41 Assessment/Plan Assessment/Plan Chief Complaint/Hosp Course Full note dictated [id number] Problems: Consultation Date/Type/Reason Admit Date/Time May 03, 2017 at 12:49 Initial Consult Date 05/03/17 Type of Consultation: ID Referring Provider: BRYAN MINOR DO Exam/Review of Systems Vital Signs Vitals Vital Signs Date Time Temp Pulse Resp B/P Pulse Ox O2 Delivery O2 Flow Rate FiO2 05/04/17 13:00 110 18 117/70 92 05/04/17 10:00 5.0 40 05/04/17 08:00 Nasal Cannula 05/04/17 08:00 98.7 Intake and Output 05/03/17 05/03/17 05/04/17 15:00 23:00 07:00 Intake Total 113.0 ml 630.5 ml 2080.8 ml Output Total 75 ml 120 ml 160 ml Balance 38.0 ml 510.5 ml 1920.8 ml Results Result Diagram: 05/04/17 0415 05/04/17 0415 Results 24 hrs Laboratory Tests Test 05/03/17 14:49 05/03/17 16:05 05/03/17 19:23 05/03/17 20:19 Bedside Glucose 279 H 399 H 245 H Sodium Level 132 L Potassium Level 4.8 Chloride Level 106 Carbon Dioxide Level 16 L Anion Gap 15 Blood Urea Nitrogen 91 H Creatinine 7.21 H Glucose Level 275 H Calcium Level 7.4 L Test 05/03/17 21:31 05/04/17 00:10 05/04/17 01:42 05/04/17 03:28 Bedside Glucose 260 H 290 H 249 H 233 H Test 05/04/17 04:00 05/04/17 04:15 05/04/17 05:00 05/04/17 06:35 Random Vancomycin Level 13.6 White Blood Count 14.9 #H Red Blood Count 3.47 L Hemoglobin 11.1 L Hematocrit 32.1 L Mean Corpuscular Volume 92.5 Mean Corpuscular Hemoglobin 32.0 Mean Corpuscular Hemoglobin Concent 34.6 Red Cell Distribution Width 15.3 H Platelet Count 96 L Mean Platelet Volume 11.0 H Neutrophils % Segmented Neutrophils % (Manual) 43 Band Neutrophils % (Manual) 47 H Lymphocytes % Lymphocytes % (Manual) 2 L Monocytes % Monocytes % (Manual) 7 Eosinophils % Basophils % Metamyelocytes % (manual) 1 H Nucleated Red Blood Cells % 1 H Neutrophils # Neutrophils # (Manual) 7.5 Band Neutrophils # 7.0 H Absolute Lymphocytes (Manual) 0.2 L Lymphocytes # Monocytes # Absolute Monocytes (Manual) 1.0 H Eosinophils # Basophils # Metamyelocytes # 0.1 H Nucleated Red Blood Cells # Platelet Estimate DECREASED Giant Platelets 1 H Dimorphic Red Blood Cells 2+ Polychromasia 1+ Hypochromasia 1+ Poikilocytosis 3+ Anisocytosis 1+ Sodium Level 133 L Potassium Level 4.3 Chloride Level 104 Carbon Dioxide Level 19 L Anion Gap 14 Blood Urea Nitrogen 97 H Creatinine 7.08 H Glucose Level 247 H Lactic Acid Level 1.3 Calcium Level 7.2 L Phosphorus Level 6.2 H Magnesium Level 1.6 L Total Bilirubin 0.2 Direct Bilirubin 0.00 Indirect Bilirubin 0.2 Aspartate Amino Transf (AST/SGOT) 45 # Alanine Aminotransferase (ALT/SGPT) 37 Alkaline Phosphatase 77 Total Protein 4.9 #L Albumin 2.2 L Globulin 2.70 Albumin/Globulin Ratio 0.81 Lipase 1157 H Blood Gas Specimen Source Blood arterial Arterial Blood Date Drawn 05/04/2017 5:00:46 AM Arterial Blood pH (Temp corrected) 7.353 Arterial Blood pCO2 (Temp correct) 29.4 L Arterial Blood pO2 (Temp corrected) 78.0 L Arterial Blood HCO3 16.0 L Arterial Blood Base Excess -8.3 L Arterial Blood Oxygen Saturation 95.0 Marcos Test N/A Arterial Blood Gas Puncture Site LB Arterial Blood Carboxyhemoglobin 0.6 Arterial Blood Methemoglobin 0.3 Blood Gas A-a O2 Differential 144.6 H Oxyhemoglobin Percent 94.1 Total Hemoglobin 12.2 Blood Gas Temperature 37.0 Blood Gas Respiration Rate 19.0 Blood Gas Modality NASAL CANNULA FiO2 36.0 Blood Gas Notified Whom UP Blood Gas Notified Time 05/04/2017 5:20:29 AM Bedside Glucose 214 Test 05/04/17 09:14 05/04/17 11:38 05/04/17 12:40 Bedside Glucose 223 H 237 H 201 Medications Medications Current Medications Ondansetron HCl (Zofran Inj) 4 mg Q6H PRN IV NAUSEA AND/OR VOMITING Last administered on 05/03/17t 08:47; Admin Dose 4 MG; Start 05/02/17 at 19:00 Lorazepam (Ativan) 0.5 mg Q2H PRN IV ANXIETY; Start 05/02/17 at 19:00 Pantoprazole 40 mg 40 mg DAILY@06 IV Last administered on 05/04/17 06:41; Admin Dose 40 MG; Start 05/03/17 at 06:00 Meropenem/Sodium Chloride (Merrem 1 Gm/50 ml (Pmx)) 50 ml @ 100 mls/hr Q24H IVPB Last administered on 05/03/17 21:29; Admin Dose 100 MLS/HR; Start at 20:00 Hydromorphone HCl (Dilaudid) 1 mg Q4H PRN IV PAIN LEVEL 7-10 Last administered on 05/04/17 13:14; Admin Dose 1 MG; Start 05/02/17 at 23:00 Insulin Aspart (Novolog Insulin Pen) NOVOLOG *MODERATE* ALGORI... Q2 SC Last administered on 05/04/17 12:43; Admin Dose 4 UNIT; Start 05/03/17 at 14:30 Miscellaneous Information 1 ea NOTE XX ; Start 05/03/17 at 14:00 Glucose (Glutose) 15 gm Q15M PRN PO DECREASED GLUCOSE; Start 05/03/17 at 14:00 Glucose (Glutose) 22.5 gm Q15M PRN PO DECREASED GLUCOSE; Start 05/03/17 at 14: 00 Dextrose (D50w Syringe) 25 ml Q15M PRN IV DECREASED GLUCOSE; Start 05/03/17 at 14:00 Dextrose (D50w Syringe) 50 ml Q15M PRN IV DECREASED GLUCOSE; Start 05/03/17 at 14:00 Glucagon (Glucagen) 1 mg Q15M PRN IM DECREASED GLUCOSE; Start 05/03/17 at 14:00 Glucose (Glutose) 15 gm Q15M PRN BUCCAL DECREASED GLUCOSE; Start 05/03/17 at 14 :00 Bisacodyl 10 mg 10 mg DAILY PRN [place] CONSTIPATION; Start 05/03/17 at 17:00 Phenylephrine HCl 80 mg/Dextrose 250 ml @ 0 mls/hr TITRATE IV Last administered on 05/04/17 05:38; Admin Dose 22.4 MLS/HR; Start 05/03/17 at 17:00 Norepinephrine 16 mg/Dextrose 500 ml @ 1.87 mls/hr TITRATE IV ; Start 05/03/17 at 17:30 Sodium Bicarbonate/ Dextrose (Na Bicarb/D5W) 1,150 ml @ 150 mls/hr Q7H40M IV Last administered on 05/04/17 12:36; Admin Dose 150 MLS/HR; Start 05/03/17 at 19:30 Miscellaneous Information This patient bustillo... PRN PRN XX WOUND CARE; Start 05/03 at 19:00 Vancomycin HCl (Vancocin) 250 ml @ 125 mls/hr Q96H IVPB Last administered on 05/04/17 09:42; Admin Dose 125 MLS/HR; Start 05/04/17 at 10:00 Insulin Glargine 15 unit 15 unit Q12 SC ; Start 05/04/17 at 21:00 Albumin Human (Albumin Human 25%) 100 ml @ 100 mls/hr ONCE ONCE IV Last administered on 05/04/17 13:31; Admin Dose 100 MLS/HR; Start 05/04/17 at 13:30 ; Stop 05/04/17 at 14:29 JOHNNIE BARCLAY NP May 04, 2017 13:41
--- NOTE | 2017-05-04 17:24 | PN ---
Date/Time of Note Date/Time of Note DATE: 05/04/17 TIME: 17:18 Assessment/Plan Lines/Catheters IV Catheter Type (from Nrs): Saline Lock High in Place (from Nrs): Yes Assessment/Plan Chief Complaint/Hosp Course 1. Abdominal pain: CT with ?sbo (doubt) vs. ileus and pancreatitis; no flatus/ bm today; persistent -npo -IV fluids -trend labs -ngt if nauseated or uncomfortable -pain management 2. Sepsis with lactic acidosis: ? source; on pressors -supportive -hannon culture 3. Pancreatitis: labs improving -as above 4. ARF: increasing uop tody, hd held -judicious fluids -avoid nephrotoxic meds 5. Metabolic acidosis: improved -medical management 6. Uncontrolled Diabetes: blood sugar labile -optimize sugar control 7. Constipation: -optimize bowel regimen 8. Electrolyte imbalance -optimize lytes Thank you. Patient seen and examined in collaboration with Dr. Jerome Marie. Problems: Subjective 24 Hr Interval Summary Feels ok. Responsive. No c/o abdominal pain but c/o bloating. Continues on pressors. UOP improving- dialysis on hold for now. No fevers, chills, n/v/d/ dysuria, sob, congested cough, palpitations. No bm/flatus today. Exam/Review of Systems Vital Signs Vitals Vital Signs Date Time Temp Pulse Resp B/P Pulse Ox O2 Delivery O2 Flow Rate FiO2 05/04/17 16:00 108 05/04/17 15:45 22 92 05/04/17 15:30 114/72 05/04/17 14:42 5.0 40 05/04/17 08:00 Nasal Cannula 05/04/17 08:00 98.7 Intake and Output 05/03/17 05/03/17 05/04/17 15:00 23:00 07:00 Intake Total 113.0 ml 630.5 ml 2080.8 ml Output Total 75 ml 120 ml 160 ml Balance 38.0 ml 510.5 ml 1920.8 ml Exam Free Text/Dictation Constitutional: alert, no distress, oriented Psych: anxiety Head: atraumatic, normocephalic, other (left head wound (shunt) with scant clear drainage) Eyes: nl lids, nl sclera ENMT: mucosa pink and moist, nl nasal mucosa & septum Neck: non-tender Respiratory: diminished breath sounds; comfortable on nc Cardiovascular: other (tachycardic) ST Gastrointestinal: distended (unchanged from yesterday), non tender No rebound or guarding Musculoskeletal: other: r aka, stump clean Neurological: nl mental status, nl speech Skin: nl turgor Results Result Diagram: 05/04/17 0415 05/04/17 0415 JEB LIRIANO NP May 04, 2017 17:24
--- NOTE | 2017-05-04 17:53 | CONS ---
Date/Time of Note Date/Time of Note DATE: 05/04/17 TIME: 17:50 Consult Date/Type/Reason Admit Date/Time May 03, 2017 at 12:49 Initial Consult Date 05/03/17 Type of Consultation: card Ordering Provider: BRYAN MINOR DO Subjective CARDIOLOGY FOLLOW UP NOTE/ Critical care note: S: d/w staff and rhythm was reviewed. d/w Dr Manley, pt remains in sinus tachycardia ,but HR is improved on neosynephrine drip he still c/o diffuse abdominal pain. he denies any cp or sob to me. he is still in ICU and on neosynephrine drip O: General: in mild distress HEENT: NC/AT. pupils are equal. round. NECK: NO JVD. no stridor. CV: tachycardic. . systolic murmur; no gallop or rubs. PULM: no wheezing or rhonchi. GI: diffuse tenderness. no rebound. Extremity: s/p R LE amputation. neuro: awake and alert, OX3. with right sided weakness Psych: calm and pleasant rectal: deferred : normal male ECHO Personally reviewed: 1. Hyperdynamic left ventricular systolic function. Normal left ventricular cavity size. Mild concentric left ventricular hypertrophy. Ejection fraction is visually estimated at 70 %. Abnormal Diastolic Function. 2. The left atrium is normal in size. 3. Mild mitral leaflet calcification. Mild mitral annular calcification. Trace mitral regurgitation. 4. No significant aortic stenosis or insufficiency. Aortic cusps appear mildly calcified. Non coronary cusp appears moderately calcified. 5. Normal appearance of the tricuspid valve. Estimated peak PA systolic pressure 56 mmHg. There is mild tricuspid regurgitation. 6. The IVC is not well visualized. Objective Vital Signs Date Time Temp Pulse Resp B/P Pulse Ox O2 Delivery O2 Flow Rate FiO2 05/04/17 16:00 108 05/04/17 15:45 22 92 05/04/17 15:30 114/72 05/04/17 14:42 5.0 40 05/04/17 08:00 Nasal Cannula 05/04/17 08:00 98.7 Intake and Output 05/03/17 05/03/17 05/04/17 15:00 23:00 07:00 Intake Total 113.0 ml 630.5 ml 2080.8 ml Output Total 75 ml 120 ml 160 ml Balance 38.0 ml 510.5 ml 1920.8 ml Results/Medications Result Diagram: 05/04/17 0415 05/04/17 0415 Results 24 hrs Laboratory Tests Test 05/03/17 19:23 05/03/17 20:19 05/03/17 21:31 05/04/17 00:10 Bedside Glucose 245 H 260 H 290 H Sodium Level 132 L Potassium Level 4.8 Chloride Level 106 Carbon Dioxide Level 16 L Anion Gap 15 Blood Urea Nitrogen 91 H Creatinine 7.21 H Glucose Level 275 H Calcium Level 7.4 L Test 05/04/17 01:42 05/04/17 03:28 05/04/17 04:00 05/04/17 04:15 Bedside Glucose 249 H 233 H Random Vancomycin Level 13.6 White Blood Count 14.9 #H Red Blood Count 3.47 L Hemoglobin 11.1 L Hematocrit 32.1 L Mean Corpuscular Volume 92.5 Mean Corpuscular Hemoglobin 32.0 Mean Corpuscular Hemoglobin Concent 34.6 Red Cell Distribution Width 15.3 H Platelet Count 96 L Mean Platelet Volume 11.0 H Neutrophils % Segmented Neutrophils % (Manual) 43 Band Neutrophils % (Manual) 47 H Lymphocytes % Lymphocytes % (Manual) 2 L Monocytes % Monocytes % (Manual) 7 Eosinophils % Basophils % Metamyelocytes % (manual) 1 H Nucleated Red Blood Cells % 1 H Neutrophils # Neutrophils # (Manual) 7.5 Band Neutrophils # 7.0 H Absolute Lymphocytes (Manual) 0.2 L Lymphocytes # Monocytes # Absolute Monocytes (Manual) 1.0 H Eosinophils # Basophils # Metamyelocytes # 0.1 H Nucleated Red Blood Cells # Platelet Estimate DECREASED Giant Platelets 1 H Dimorphic Red Blood Cells 2+ Polychromasia 1+ Hypochromasia 1+ Poikilocytosis 3+ Anisocytosis 1+ Sodium Level 133 L Potassium Level 4.3 Chloride Level 104 Carbon Dioxide Level 19 L Anion Gap 14 Blood Urea Nitrogen 97 H Creatinine 7.08 H Glucose Level 247 H Lactic Acid Level 1.3 Calcium Level 7.2 L Phosphorus Level 6.2 H Magnesium Level 1.6 L Total Bilirubin 0.2 Direct Bilirubin 0.00 Indirect Bilirubin 0.2 Aspartate Amino Transf (AST/SGOT) 45 # Alanine Aminotransferase (ALT/SGPT) 37 Alkaline Phosphatase 77 Total Protein 4.9 #L Albumin 2.2 L Globulin 2.70 Albumin/Globulin Ratio 0.81 Lipase 1157 H Test 10/8/17 05:00 05/04/17 06:35 05/04/17 09:14 05/04/17 11:38 Blood Gas Specimen Source Blood arterial Arterial Blood Date Drawn 05/04/2017 5:00:46 AM Arterial Blood pH (Temp corrected) 7.353 Arterial Blood pCO2 (Temp correct) 29.4 L Arterial Blood pO2 (Temp corrected) 78.0 L Arterial Blood HCO3 16.0 L Arterial Blood Base Excess -8.3 L Arterial Blood Oxygen Saturation 95.0 Marcos Test N/A Arterial Blood Gas Puncture Site LB Arterial Blood Carboxyhemoglobin 0.6 Arterial Blood Methemoglobin 0.3 Blood Gas A-a O2 Differential 144.6 H Oxyhemoglobin Percent 94.1 Total Hemoglobin 12.2 Blood Gas Temperature 37.0 Blood Gas Respiration Rate 19.0 Blood Gas Modality NASAL CANNULA FiO2 36.0 Blood Gas Notified Whom UP Blood Gas Notified Time 05/04/2017 5:20:29 AM Bedside Glucose 214 223 H 237 H Test 05/04/17 12:40 05/04/17 15:16 05/04/17 16:58 Bedside Glucose 201 162 131 Medications Current Medications Ondansetron HCl (Zofran Inj) 4 mg Q6H PRN IV NAUSEA AND/OR VOMITING Last administered on 05/03/17 08:47; Admin Dose 4 MG; Start 05/02/17 at 19:00 Lorazepam 0.5 mg 0.5 mg Q2H PRN IV ANXIETY; Start 05/02/17 at 19:00 Meropenem/Sodium Chloride (Merrem 1 Gm/50 ml (Pmx)) 50 ml @ 100 mls/hr Q24H IVPB Last administered on 05/03/17 21:29; Admin Dose 100 MLS/HR; Start at 20:00 Hydromorphone HCl (Dilaudid) 1 mg Q4H PRN IV PAIN LEVEL 7-10 Last administered on 05/04/17 13:14; Admin Dose 1 MG; Start 05/02/17 at 23:00 Insulin Aspart (Novolog Insulin Pen) NOVOLOG *MODERATE* ALGORI... Q2 SC Last administered on 05/04/17 15:19; Admin Dose 2 UNIT; Start 05/03/17 at 14:30 Miscellaneous Information 1 ea NOTE XX ; Start 05/03/17 at 14:00 Glucose (Glutose) 15 gm Q15M PRN PO DECREASED GLUCOSE; Start 05/03/17 at 14:00 Glucose (Glutose) 22.5 gm Q15M PRN PO DECREASED GLUCOSE; Start 05/03/17 at 14: 00 Dextrose (D50w Syringe) 25 ml Q15M PRN IV DECREASED GLUCOSE; Start 05/03/17 at 14:00 Dextrose (D50w Syringe) 50 ml Q15M PRN IV DECREASED GLUCOSE; Start 05/03/17 at 14:00 Glucagon (Glucagen) 1 mg Q15M PRN IM DECREASED GLUCOSE; Start 05/03/17 at 14:00 Glucose (Glutose) 15 gm Q15M PRN BUCCAL DECREASED GLUCOSE; Start 05/03/17 at 14 :00 Bisacodyl 10 mg 10 mg DAILY PRN FL CONSTIPATION Last administered on 05/04/17 17:20; Admin Dose 10 MG; Start 05/03/17 at 17:00 Phenylephrine HCl 80 mg/Dextrose 250 ml @ 0 mls/hr TITRATE IV Last administered on 05/04/17 17:15; Admin Dose 20 MLS/HR; Start 05/03/17 at 17:00 Norepinephrine 16 mg/Dextrose 500 ml @ 1.87 mls/hr TITRATE IV ; Start 05/03/17 at 17:30 Sodium Bicarbonate/ Dextrose (Na Bicarb/D5W) 1,150 ml @ 150 mls/hr Q7H40M IV Last administered on 05/04/17 12:36; Admin Dose 150 MLS/HR; Start 05/03/17 at 19:30 Miscellaneous Information This patient bustillo... PRN PRN XX WOUND CARE; Start 05/03 at 19:00 Vancomycin HCl (Vancocin) 250 ml @ 125 mls/hr Q96H IVPB Last administered on 05/04/17 09:42; Admin Dose 125 MLS/HR; Start 05/04/17 at 10:00 Insulin Glargine (Lantus) 15 unit Q12 SC ; Start 05/04/17 at 21:00 Famotidine (Pepcid Iv) 20 mg DAILY IV ; Start 05/05/17 at 09:00 Assessment/Plan Chief Complaint/Hosp Course 1. Sinus tachycardia secondary to below. 2. Severe sepsis and septic shock. 3. Severe pancreatitis. 4. Diabetes. 7. Severe metabolic acidosis. 8. HX of Hypertension, currently in shock and hypotensive. 9. History of dyslipidemia. 10. History of RLE amputation. 11. History of craniotomy and meningioma, status post craniotomy. 12. History of seizure disorder. 13. JESUSITA on CKD. 14. hypo Na. 15. mildly abnormal trop due to above RECOMMENDATIONS: Antibiotic is managed as per infectious disease and Dr. Vincent. cont Dean-Synephrine drip echo reviewed and did not show any evidence of LV dysfunction or effusion to explain the pt's tachycardia Electrolytes will be checked periodically and adjusted. cont Insulin. We will closely monitor him. Prognosis appeared to be guarded. cont ICU care. f.u with renal consultants rec. THANK YOU CARMEN MELO MD [facility]. Problems: CARMEN MELO MD May 04, 2017 17:53
[2017-05-04] MEDS: MEROPENEM 1 GM/50ML(PMX) 50 ML IVPB SCH (20:17)
[2017-05-05] VITALS (68 sets, daily range): BP systolic 90–148; BP diastolic 12–130; PULSE 96–132; RESP 10–21
[2017-05-05] MEDS: INSULIN ASPART [NOVOLOG] 3 ML PEN SC SCH ×9 (01:00→20:45)
[2017-05-05] MEDS: HYDROmorphONE 1 MG/ML SYG IV PRN ×4 (02:06→22:57)
[2017-05-05] MEDS: SODIUM BICARBONATE (IV ADD) 150 MEQ in DEXTROSE 5% 1,000 ML IV SCH ×3 (02:07→11:53)
--- NOTE | 2017-05-05 02:39 | CONS ---
DATE OF ADMISSION: 05/03/2017 DATE OF CONSULTATION: 05/03/2017 INFECTIOUS DISEASE CONSULTATION REASON FOR CONSULTATION: Antibiotic management. HISTORY OF PRESENT ILLNESS: Fernando Jhaveri is a 67-year-old male who was brought to the emergency r oom for constipation from a residential facility. It was noted that his heart rate was 140s, hi s blood pressure was low. He has diffuse abdominal pain and denies shortness of breath. His past p roblems include: 1. Adult-onset diabetes mellitus. 2. Status post right AKA in 2003. 3. Left leg status post fracture. 4. Status post CVA. 5. Bipolar. 6. Expressive aphasia. 7. Encephalopathy. 8. Seizures. On admission, his white count was 18.9, H and H of 15.6 and 45.3, platelet count of 98,000. BUN and creatinine 77/5.55. His glucose was 452. His CO2 was 13. Today's white count is 12.1. His lacti c acid was 2.5. BUN and creatinine was 84/6.16. So, he is in significant renal failure. The patie nt was started on cefepime. The patient was noted to have sepsis and pancreatitis, accompanied with mild DKA, with an anion gap of 20, CO2 of 13. His urinalysis was negative for leukocyte esterase a nd nitrites, only 2+ white cells per high powered field. A gallbladder ultrasound shows pancreas no t visualized, small amount of free fluid, hyperechoic right kidney which may indicate mild renal dis ease. Chest x-ray, interval placement of right arm PICC line, stable mild cardiomegaly, low lung vo lumes, including basilar atelectasis. A CT scan of the abdomen and pelvis shows diffusely enlarged pancreas with surrounding extensive inflammatory changes in keeping with acute pancreatitis, small a mount of fluid, inflammatory changes along the pararenal spaces with no loculated peripancreatic flu id collection, indeterminate large left renal lesion measuring 10 x 11 cm, which demonstrates puncta te wall calcifications and internal densities, mildly dilated multiple loops of small bowel with air -fluid levels without discrete transition point. This could represent ileus versus early partial sm all-bowel obstruction, small nonobstructing bilateral renal stones, no hydronephrosis. A PICC line was placed in the right arm. PAST MEDICAL HISTORY: Operations as outlined. FAMILY HISTORY: Noncontributory. SOCIAL HISTORY: Does not smoke, drink or abuse drugs. ALLERGIES: NONE TO PENICILLIN, SULFA OR FOODS. MEDICATIONS: Per chart. REVIEW OF SYSTEMS: As per HPI. PHYSICAL EXAMINATION: GENERAL: The patient is a chronically ill-appearing male who is awake, responsive, in some distress . VITAL SIGNS: Stable. He is afebrile. SKIN: Without generalized rash. HEENT: Within normal limits. NECK: Supple. LYMPH NODES: None palpable. CHEST: Decreased breath sounds at the bases. HEART: Without murmur or gallop. ABDOMEN: Soft, nontender, without organosplenomegaly or masses. EXTREMITIES: Without cyanosis, clubbing or edema. RECTAL AND GENITAL: Deferred. NEUROLOGIC: No focal neurological abnormalities. EXTREMITIES: He has a right BKA as noted previously. IMPRESSION AND PLAN: The patient presents now with significant pancreatitis, diabetic ketoacidosis and severe sepsis. He is to continue on his cefepime. He was seen by Dr. Garcia as well. The shara ent is on Levophed. He will be admitted to the ICU. A Dean-Synephrine drip may be added as well. I will dictate my findings to the hospitalist and to Dr. Garcia. Dictated By: GENARO GRACE MD, JD/DAVIE Conf#: [id number] DID#: [id number] CC: CARMEN GARCIA MD; DOMINGO ARELLANO MD;*End*
[2017-05-05 06:24] LABS: Allen Test ACCEPTAB; Arterial MetHb 0.2 % (0.0-1.5); MODE NASAL CANNULA
[2017-05-05 06:39] LABS: ABNORMAL IP MESSAGE 1; BASOPHILS % 0.2 % (0.0-2.0); EOSINOPHILS # 0.1 10^3/ul (0.0-0.5); EOSINOPHILS % 0.6 % (0.0-7.0); HEMATOCRIT 28.8 % (42.0-52.0); LYMPHOCYTES # 0.8 10^3/ul (0.8-2.9); LYMPHOCYTES % 5.5 % (15.0-51.0); MEAN CORPUSCULAR HEMOGLOBIN 31.3 pg (29.0-33.0); MEAN CORPUSCULAR HGB CONC 34.7 g/dl (32.0-37.0); MEAN CORPUSCULAR VOLUME 90.3 fl (82.0-101.0); MEAN PLATELET VOLUME 11.1 fl (7.4-10.4); MONOCYTE # 0.9 10^3/ul (0.3-0.9); MONOCYTES % 6.6 % (0.0-11.0); NEUTROPHIL # 12.1 10^3/ul (1.6-7.5); NEUTROPHILS % 85.8 % (39.0-77.0); PLATELET COUNT 92 10^3/UL (140-415); POSITIVE DIFF @See below; RED BLOOD COUNT 3.19 10^6/ul (4.70-6.10); RED CELL DISTRIBUTION WIDTH 14.4 % (11.5-14.5); WHITE BLOOD COUNT 14.1 10^3/ul (4.8-10.8)
--- NOTE | 2017-05-05 06:52 | PN ---
DATE: 05/03/2017 HISTORY OF PRESENT ILLNESS: The patient remains in the emergency room under ICU status. He was on BiPAP at night and BiPAP was taken off, and appears to be breathing more comfortably. ABG was done which showed a pH of 7.23, pCO2 of 23, pO2 of 76, bicarbonate of 10, low. Saturation 95%, this is o n 39% FIO2. BiPAP was taken off. This is more of a metabolic picture. Nephrology, pulmonology, ca rdiology, surgical consultation and ID consult were already obtained/requested. The patient appears to be overall comfortable. Case discussed with nursing staff in detail. Noted hypocalcemia and hy pomagnesemia. Replacements are being provided as well. Remains on Levophed 22 mcg. Blood pressure is maintained in the low one-teens. Patient has been afebrile overnight. PHYSICAL EXAMINATION: VITAL SIGNS: Temperature is 98.7, pulse 140, respirations 27, blood pressure 116/80, saturation is 94% on 5 liters nasal cannula. GENERAL: The patient is in no acute distress, communicating at baseline. The patient is pale. NECK: No JVD. CARDIOVASCULAR: S1 and S2, tachycardic. LUNGS: Decreased bilaterally. ABDOMEN: Distended and tense, and painful palpation. EXTREMITIES: Right BKA, otherwise no significant edema is noted. LABORATORY DATA: White count is 12.1, hemoglobin 13.2, hematocrit 39, platelet count is 84, neutrop hil count 79%, no bands, lymphocytes 9%. Chemistry: Sodium 139, potassium 4.1, chloride 111, bicar bonate 16, BUN is 85, creatinine 6.4 and glucose of 102. Magnesium is low at 1.3, phosphorus high a t 5.3, AST slightly high at 99, ALT 41. Albumin is low at 3.0. Lipase, we will order. Request ano ther lipase for noon labs, as well as request another BMP. Lactic acid improved to 2.5. So, bobo siddiqi patient is improving clinically. Cultures, a urine culture so far negative. The patient also had blood cultures done on admission. MEDICATION: 1. Magnesium sulfate x1. 2. I just changed his fluid to D5W with 2 amps of bicarbonate. 3. Normal saline 1 bolus 1 liter x1. 4. Calcium chloride 1 gram x1. 5. Protonix 40 mg IV daily. 6. Dilaudid 1 mg IV q.4 p.r.n. 7. Insulin, now per sliding scale. 8. Merrem 1 gram IV q.24 hours. 9. Zofran p.r.n. 10. DuoNeb p.r.n. 11. Ativan 0.5 IV q.2 p.r.n. 12. Accu-Chek now q.1 hours. 13. Levophed as directed. IMAGING: No radiographic imaging today. ASSESSMENT AND PLAN: This is an unfortunate 67-year-old male with history of diabetes josy litus, right below-knee amputation, history of meningioma, status post resection, history of cerebro vascular accident with expressive aphasia, dyslipidemia, depression, chronic kidney disease, who pre sents with acute pancreatitis, acute renal failure, sepsis. 1. Respiratory: Stable, now off BiPAP. Continue O2 support. ABG shows more of a metabolic pictur e. Pulmonary was consulted. We will follow up with recommendations. We will obtain a chest x-ray for followup to monitor for fluid overload state. Patient otherwise oxygenating adequately. 2. Cardiovascular: The patient remains on pressors, titrate up to keep systolic greater than 90. We will give him another bolus of 1 liter of normal saline. Continue aggressive hydration otherwise . Hold blood thinners secondary to thrombocytopenia. Remains tachycardic. Cardiology is following . This is mostly multifactorial related to pain, infection. 3. Infectious disease: The patient with leukocytosis and bandemia, with acute pancreatitis. The p atient is on vancomycin and Merrem. White count has improved. Lactic acid has improved. Surgical team and ID consult will be obtained. We will follow up with further recommendations. Pain control will be provided. 4. Gastrointestinal. The patient with acute pancreatitis. Pain control with Dilaudid. IV fluid h ydration will be provided. Replace electrolytes including calcium and magnesium. Monitor potassium . Another BMP will be ordered. Another lipase will be ordered at noon, in 2 hours. Continue Naseem nix for GI prophylaxis. Make sure patient is comfortable. 5. Acute renal failure with metabolic acidosis. We will put him on bicarbonate. The patient may n eed dialysis as patient's urine output is very minimal. Again, may require dialysis, indication maine l be acidosis. We will follow. 6. Neurological: The patient is at baseline. Observe. 7. Keep n.p.o., continue fluid hydration. 8. Anxiolytics p.r.n. for anxiety. Case discussed extensively with ER nurse, transfer to ICU when bed is available. Yesterday, I spent more than 2 hours obtaining consult, examining the patient multiple times, make s ure patient is stable. Condition remains guarded. Over 40 minutes spent with patient and care. We will follow. Dictated By: DOMINGO GILMORE/DAVIE Conf#: [id number] DID#: [id number]
--- NOTE | 2017-05-05 06:57 | HP ---
DATE OF ADMISSION: 05/03/2017 REASON FOR ADMISSION: Acute pancreatitis, abdominal pain, sepsis and DKA. HISTORY OF PRESENT ILLNESS: The patient is a very unfortunate 67-year-old male with histo ry of diabetes mellitus type 2, CVA with right-sided weakness and expressive aphasia, status post ri ght BKA, seizure disorder, dyslipidemia, depression, who previously admitted under my care at [facility] on 04/10/2017, secondary to left scalp wound. The patient had history of menin gioma resection a year prior with Dr. Christian and the patient currently resides at [facility]. Today, he was noted with increased abdominal pain, tachycardic and hypotensive. He was r ushed to [facility] for evaluation. Upon evaluation, the patient was noted to be very sick. White count elevated 18.9. The patient with renal failure and bandemia, acidosis, gluco se of 452. Lipase is remarkably high at 24,000, suggestive of pancreatitis. The patient underwent a CT scan of the abdomen and pelvis which showed diffusely enlarged pancreas w ith surrounding extensive inflammatory changes in keeping with acute pancreatitis. A small amount o f fluid and inflammatory changes along with the pararenal spaces with no loculated peripancreatic fl uid collection. There is an indeterminate large left renal lesion measuring 10 x 11 cm which demons trated punctate wall calcification and internal densities. Recommend CT or MRI with contrast parare nal mass protocol. Multiple additional small renal cyst are also noted. Has mildly dilated multipl e loops of small bowel with air-fluid level without discrete point. This could represent ileu s versus early partial small-bowel obstruction, small nonobstructing bilateral renal stones, no hydr onephrosis, a small right pleural effusion and bibasilar atelectasis. There is aortoiliac atheroscl erosis. The patient was started on insulin drip. He was started on antibiotics with cefepime. IV fluid hyd ration and insulin drip were initiated. Later on, he was noted to be hypotensive and more tachycard ic. The patient was placed on nonrebreather mask. I instructed the nurse to place and High cathet er and we will likely place also on NG tube to suction. The patient is in critical condition. He w ill be kept n.p.o. and be transferred to the intensive care unit in guarded condition. An ABG which was done was quite abnormal as well, shows a pH of 7.19, pCO2 of 29, pO2 42, bicarbonate of 11. Hi s saturation is documented at 74% on nonrebreather mask. I ordered a repeat ABG as on the vital sig ns it says his saturation is 97% on 15 liters. The patient is verbal and alert, complaining of abdo verónica pain. His abdomen is very distended. The patient was admitted for further care. PAST MEDICAL HISTORY: Includes diabetes mellitus, CVA with right-sided weakness, status post right BKA, dyslipidemia, seizure disorder, bipolar disorder, history of CKD, hypertension. SURGICAL HISTORY: Right below the knee amputation and craniotomy for meningioma resection a year ag o. ALLERGIES: NO KNOWN DRUG ALLERGIES. SOCIAL HISTORY: The patient denies tobacco, alcohol or IV drug use. The patient is single with no kids. The patient resides currently at [facility]. MEDICATIONS: 1. The patient's current medications include Doxycycline 100 mg b.i.d. 2. Glucagon as directed. 3. Levemir 8 units at night. 4. Lorazepam 1 mg q.6h. p.r.n. 5. Losartan 50 mg daily. 6. Niacin 500 mg at bedtime. 7. Protonix 40 mg daily. 8. Senna 8.6 one tab at bedtime. 9. Seroquel 300 mg at night. That is a high dose as he was seen by the psychiatrist. 10. Januvia 25 mg daily. 11. Tylenol p.r.n. 12. Ambien p.r.n. 13. Aspirin 81 mg daily. 14. Atorvastatin 5 mg nightly. 15. Coreg as directed. EKG , sinus tachycardia, possible inferior infarct at 137 beats per minute. PHYSICAL EXAMINATION: VITAL SIGNS: Temperature 98.7, pulse 150, respirations 20, blood pressure 74/61, saturation 97% on 15 liter nonrebreather mask. GENERAL: The patient is sick looking. The patient has a left parietal scalp open wound, currently not draining, appears to be dry. The patient is pale. CARDIOVASCULAR: S1 and S2, tachycardic. LUNGS: Decreased breath sounds bilaterally. The patient is slightly tachypneic. ABDOMEN: Significantly distended and tender throughout. EXTREMITIES: Right BKA, otherwise no edema of the lower extremity. NEUROLOGIC: The patient is moving all extremities. LABORATORY DATA: White count is 18.9, hemoglobin 15.6, hematocrit 45, platelet count , neutrop hils 63%, bands of 26%. Chemistry: Sodium 138, potassium 4.4, chloride 111, bicarbonate is 11, BUN of 76, creatinine 5.4, glucose 432. This was at 1:45. Repeat BMP shows sodium 140, potassium 4.1, chloride 111, bicarbonate 11, BUN 82 worse, creatinine 5.9 and glucose of 324. Last glucose level was 231. Still with significant acidosis. INR was 1.4. Gallbladder ultrasound shows pancreas not visualized, small amount of free fluid, hypoechoic right k idney which may indicate medical renal disease, otherwise, unremarkable. Chest x-ray shows interval placement of right PICC line, stable mild cardiomegaly, no CHF, low lung volume, linear basilar atelectasis. The patient does have a right upper extremity PICC line from hi s previous admission. ASSESSMENT AND PLAN: This is a very unfortunate, very sick 67-year-old male with history of diabetes mellitus, dyslipidemia, bipolar disorder, right below-knee amputation, status post front otemporal craniotomy for resection of meningioma, now presents with acute pancreatitis, sepsis and r espiratory failure. 1. Respiratory. The patient appears to be in respiratory failure, may need to be intubated. Will obtain another ABG, place the patient now on nonrebreather mask for now. May put him on BiPAP and m ay need to be intubated. The patient will be kept n.p.o. 2. Cardiovascular. The patient is tachycardic, partly maybe from pain. The patient will be placed on Levophed to keep systolic blood pressure greater than 90. Continue supportive care. 3. Diabetes, DKA. The patient was placed on insulin drip with aggressive IV fluid hydration, monit or potassium and replace as needed. Again, will intubate if needed. 4. Abdominal pain, likely secondary to pancreatitis and possible gas and possible ileus. Will obta in an NG tube to suction. Surgical team was consulted with Dr. Jerome Marie. Will follow with re commendations. The patient was kept n.p.o. 5. Acute renal failure. Patient will be hydrated. We will place High to gravity and monitor kidn ey function. Will request nephrology consultation. Avoid nephrotoxic medication. 6. Infectious disease: The patient with leukocytosis and bandemia. We will place on broad spectru m antibiotic with imipenem, Merrem and vancomycin as the patient previously had I believe gram-posit hong infection in the left scalp area. 7. Condition is guarded. We will discuss care with any power of attorney at law or relatives. 8. Monitor serial lactic acid levels. CONDITION: Guarded. Condition is high concerning. Again, the patient is awaiting admission to the intensive care unit. Case discussed with nursing staff. We will follow. Dictated By: DOMINGO GILMORE/DAVIE Conf#: [id number] DID#: [id number]
[2017-05-05 07:09] LABS: MAGNESIUM 1.8 mg/dl (1.7-2.5); PHOSPHORUS 6.4 mg/dl (2.5-4.9)
[2017-05-05 07:17] LABS: ALBUMIN 2.5 g/dl (3.3-4.9); ALBUMIN/GLOBULIN RATIO 0.83; BILIRUBIN,INDIRECT 0.4 mg/dl (0-1.1); BILIRUBIN,TOTAL 0.4 mg/dl (0.2-1.3); CALCIUM 7.5 mg/dl (8.4-10.2); CREATININE 6.45 mg/dl (0.61-1.24); POTASSIUM 3.7 mmol/L (3.5-5.1); TOTAL PROTEIN 5.5 g/dl (6.1-8.1)
[2017-05-05 07:50] LABS: Arterial COHb 0.8 % (0.0-3.0); Arterial Fraction of Oxyhgb 94.2 % (93.0-99.0); Arterial HCO3 27.8 mmol/L (22.0-26.0); Arterial Total Hemglobin 14.5 g/dl (12.0-18.0)
--- NOTE | 2017-05-05 08:11 | PN ---
DATE: 05/04/2017 ADDENDUM As discussed with pulmonary and nephrology. The patient will need dialysis due to metabolic acidosi s, worsening kidney function, abdominal distention and edema. Currently, we do not have any family information to obtain consent so in my opinion, this is a medical necessity as discussed with the [facility] consultants. So, I think it is in the patient's best interest to have the patient dialyzed at [facility] temporarily. A Silvio catheter will be needed to be done. Case discussed with nursing staff. We will follow. Dictated By: DOMINGO GILMORE/DAVIE Conf#: [id number] DID#: [id number]
[2017-05-05] MEDS: FAMOTIDINE 20 MG INJ IV SCH (08:54)
[2017-05-05] MEDS: INSULIN GLARGINE [LANtus] 3 ML PEN SC SCH ×2 (08:58→20:43)
--- NOTE | 2017-05-05 09:00 | PN ---
DATE: 05/04/2017 SUBJECTIVE: Patient clinically doing better as he is less tachycardic, heart rate in the 110s. Rem ains on pressors on Dean-Synephrine at 149 mcg per hour. The patient is alert. No specific complain ts. Patient is n.p.o. Lipase is trending down and normalizing. Case discussed in detail yesterday with Dr. Manley and Dr. Jose Armando Marie. Patient's urine output in was 2651, out 355. Patient is on a bicarbonate drip D5W with 3 amps of bicarbonate. ABG this morning much better. Shows a pH of 7.35, pCO2 of 29, pO2 of 78, bicarbonate 16, saturation 95%. PHYSICAL EXAMINATION: VITAL SIGNS: Temperature 98.7, pulse 115, respirations 18, blood pressure 118/76, saturation 94%. GENERAL: The patient is in no acute distress. HEENT: Left parietal area wound. CARDIOVASCULAR: S1 and S2, tachycardic. LUNGS: Mild rhonchi bilaterally, right greater than left. ABDOMEN: Soft, still distended but less. Still tenderness with palpation throughout. EXTREMITIES: Trace to +1 edema upper extremity and lower extremity. The patient has right lower ex tremity BKA. Patient moving all extremities. LABORATORY DATA: White count 14.9, hemoglobin 11.1, hematocrit 32, platelet count 96, segmented alex trophils is 43, bands 47. Chemistry: Sodium 136, potassium 4.3, chloride 104, bicarbonate 19 , BUN is 27, creatinine 2.08, glucose of 247. Last glucose level is 223 and 214, so in the low 200s . Lactic acid 1.3, magnesium is low at 1.6, phosphorus 6.2. Lipase is better at 1157. Albumin is l ow at 2.2, calcium 7.2. Blood and urine culture and MRSA screening are all negative. Chest x-ray done today shows no significant change, low lung volume and bibasilar atelectasis. MEDICATIONS: 1. Vancomycin dose per pharmacy. 2. Lantus 10 units q.12h. 3. Sodium bicarbonate drip D5W with 3 amps of bicarbonate at 150 mL an hour. 4. Levophed as directed. 5. Dulcolax as directed. 6. Phenylephrine as directed. 7. . 8. NovoLog q.2h. per sliding scale. 9. Protonix 40 IV daily. 10. Dilaudid 1 mg IV q.4h. p.r.n. 11. Merrem 500 IV q.24 hours. 7. Zofran p.r.n. 8. DuoNeb p.r.n. 9. Ativan p.r.n. 10. Vancomycin p.r.n. ASSESSMENT AND PLAN: This is a 67-year-old male with history of meningioma status post cr aniotomy, left forehead wound, diabetes mellitus, chronic kidney disease, right below-knee amputatio n, who presented with acute pancreatitis, metabolic acidosis, sepsis. 1. Respiratory. Remains stable. Noted chest x-ray. Continue nasal cannula, saturating well. ABG much improved. 2. Cardiovascular. Remains on pressors secondary to septic shock. Titrated down Dean-Synephrine as tolerated. Off blood thinners secondary to thrombocytopenia. The patient is less tachycardic, rhy thm and sinus tachycardia, likely multifactorial due to pain, sepsis. 3. Gastrointestinal. The patient with still abdominal pain. Lipase is normalizing. Always concer rosanne about abdominal compartment syndrome. We will follow. Surgical team is following. 4. Continue Protonix for gastrointestinal prophylaxis. 5. Infectious disease. The patient is on broad spectrum antibiotics secondary to leukocytosis and likely sepsis. Etiology may be just pancreas. Remains on vancomycin and imipenem. The patient is afebrile, clinically better. 6. Acute renal failure on chronic renal failure. The patient's acidosis improved with bicarbonate drip, but kidney function worsened with. The patient will plan for dialysis today line to be placed . Case discussed with Dr. Jose Armando Marie. 7. Anemia. H and H remained stable, observe. 8. Continue ICU care and supportive care. The patient is FULL CODE. 9. Diabetes mellitus. Increase Lantus to 15 units q.12h. Continue insulin sliding scale with Accu -Cheks q.2 hours. 10. Keep n.p.o. We will follow. Case discussed with nursing staff. Over 30 minutes was spent to evaluate the patient, talking to staff members and consultants. 11. Replace magnesium. Continue to monitor electrolytes closely. Monitored cultures are so far al l negative. We will follow. Dictated By: DOMINGO GILMORE/DAVIE Conf#: [id number] [facility]#: [id number]
--- NOTE | 2017-05-05 09:41 | PN ---
DATE: 05/04/2017 SUBJECTIVE: Patient is awake, looks comfortable. He is on Levophed drip. Denies pain, discomfort. The patient is tachycardic as well. PHYSICAL EXAMINATION: VITAL SIGNS: Temperature 98.7, pulse 110, respirations 18, blood pressure 115/70, saturation 95% on nasal cannula. LABORATORIES: WBC 14.9, hemoglobin and hematocrit 11.1 and 32.1, platelets 96, neutrophils 43, band s, 47. Sodium 133, potassium 4.3, BUN 97, creatinine 7.08. MICROBIOLOGY: Blood culture, urine culture remains negative. Nares swab negative for MRSA. DIAGNOSTICS: Chest x-ray this morning revealed no significant change, low lung volumes with basilar atelectasis. CT of the abdomen on admission revealed diffusely large pancreas with surrounding ext ensive inflammatory changes in keeping with acute pancreatitis. No loculated perihepatic fluid siobhan ection, an indeterminate large left renal lesion measuring 10.11 cm, recommend CT or MRI with contra st per renal mass protocol, questionable early ileus versus early partial small-bowel obstruction, n o hydronephrosis. Small right pleural effusion, bibasilar atelectasis and aortoiliac arterioscleros is. INDWELLINGS: The patient has a right-sided PICC line, High catheter. ANTIMICROBIALS: 1. Vancomycin. 2. Meropenem. ALLERGIES: NONE. PHYSICAL EXAMINATION: GENERAL: This is an obese, well-developed elderly man who is awake, in no distress. HEENT: Head atraumatic, normocephalic. Sclerae anicteric. Buccal mucosa dry. NECK: Supple. CHEST: Rise symmetrical. Breath sounds diminished to bases. HEART: S1, S2. ABDOMEN: Distended, bowel tones hypoactive. Abdomen also is tender on palpation. EXTREMITIES: With right below knee amputation. SKIN: Positive for anasarca. ASSESSMENT: 1. Septic shock. 2. Acute pancreatitis. 3. Questionable ileus versus partial small bowel obstruction. 4. History of methicillin-resistant Staphylococcus aureus infected left occipital wound status post craniotomy. 5. Acute on chronic kidney disease. 6. Diabetes. 7. Seizure disorder. PLAN: The patient remains hemodynamically unstable, covered with broad spectrum antibiotics. HE IS NOT ALLERGIC TO ANYTHING. He is being seen by multiple consultants. Plan for hemodialysis. Dictated By: JOHNNIE BARCLAY ADULT FAMILY HOME PROGRAM MANAGER for GENARO MARIE/DAVIE Conf#: [id number] DID#: [id number]
--- NOTE | 2017-05-05 11:16 | PN ---
Date/Time of Note Date/Time of Note DATE: 05/05/17 TIME: 11:05 Assessment/Plan Lines/Catheters IV Catheter Type (from Nrs): Peripheral IV High in Place (from Nrs): Yes Assessment/Plan Chief Complaint/Hosp Course 1. Abdominal pain: CT with ?sbo (doubt) vs. ileus and pancreatitis; concern for abdominal compartment syndrome: (no change in abdominal distention, tachycardia unchanged); +flatus -npo -IV fluids -trend labs -ngt if nauseated or uncomfortable -pain management 2. Sepsis with lactic acidosis: ? source; off pressors currently; improving -supportive -hannon culture 3. Pancreatitis: labs improving -as above 4. ARF: increasing uop today, cr improvnig; hd held -judicious fluids -avoid nephrotoxic meds -poss HD per renal 5. Metabolic acidosis: improved -medical management 6. Uncontrolled Diabetes: blood sugar labile -optimize sugar control 7. Constipation: -optimize bowel regimen 8. Electrolyte imbalance -optimize lytes Thank you. Patient seen and examined in collaboration with Dr. Jerome Marie. Problems: Subjective 24 Hr Interval Summary Feeling ok. Continues to have abdominal distention but has +flatus, no bm. Tachycardia continues but stable. No fevers, chills, sob, congested cough, n/v/d /dysuria, cp, palpitations. Abdominal pain improved. Trial off pressors currently Exam/Review of Systems Vital Signs Vitals Vital Signs Date Time Temp Pulse Resp B/P Pulse Ox O2 Delivery O2 Flow Rate FiO2 05/05/17 09:15 122 10 110/76 94 05/05/17 08:00 Nasal Cannula 6.0 05/05/17 08:00 98.7 05/04/17 18:32 40 Intake and Output 05/04/17 05/04/17 05/05/17 15:00 23:00 07:00 Intake Total 1593.02 ml 1155 ml 1155.00 ml Output Total 320 ml 420 ml 1200 ml Balance 1273.02 ml 735 ml -45.00 ml Exam Free Text/Dictation Constitutional: alert, no distress, oriented Psych: min anxiety Head: atraumatic, normocephalic, other (left head wound (shunt) with scant clear drainage) Eyes: nl lids, nl sclera ENMT: mucosa pink and moist, nl nasal mucosa & septum Neck: non-tender Respiratory: diminished breath sounds; comfortable on nc Cardiovascular: other (tachycardic) ST Gastrointestinal: distended (unchanged), non tender, umbilical hernia, no skin discoloration, +bowel sounds No rebound or guarding Musculoskeletal: other: r aka, stump clean Neurological: nl mental status, nl speech Results Result Diagram: 05/05/17 0445 05/05/17 0445 JEB LIRIANO NP May 05, 2017 11:16
--- NOTE | 2017-05-05 11:48 | CONS ---
Date/Time of Note Date/Time of Note DATE: 05/05/17 TIME: 11:45 Assessment/Plan Assessment/Plan Additional Assessment/Plan Assessment and recommendations; 1. Patient admitted with sepsis, etiology is unclear. Possibly from acute pancreatitis. 2. Recent history of left parietal area surgery due to skin abscess. 3. Likely acute on chronic renal injury, with improving serum creatinine. 4. Altered mental status likely from underlying sepsis with interval improvement. 5. Anemia and thrombocytopenia. 6. Metabolic acidosis with interval improvement. Continue current supportive care. Consultation Date/Type/Reason Admit Date/Time May 03, 2017 at 12:49 Initial Consult Date 05/03/17 Type of Consultation: Pulmonary/critical care Referring Provider: BRYAN MINOR DO 24 HR Interval Summary Free Text/Dictation Patient's condition is improving. Off pressor support. Remains awake and alert. Patient however has episodes of occasional confusion though. General exam; elderly male, awake, currently in no distress. Able to talk. Exam/Review of Systems Vital Signs Vitals Vital Signs Date Time Temp Pulse Resp B/P Pulse Ox O2 Delivery O2 Flow Rate FiO2 05/05/17 11:15 118 13 121/76 95 05/05/17 08:00 Nasal Cannula 6.0 05/05/17 08:00 98.7 05/04/17 18:32 40 Intake and Output 05/04/17 05/04/17 05/05/17 15:00 23:00 07:00 Intake Total 1593.02 ml 1155 ml 1155.00 ml Output Total 320 ml 420 ml 1200 ml Balance 1273.02 ml 735 ml -45.00 ml Exam HEENT exam; supple neck, no JVD. No lymphadenopathy. Midline trachea. No thyromegaly. There is a dressing applied over the left parietal area. Patient has few missing teeth. Pupils are equal and reactive to light. Chest exam; clear to auscultation. S1-S2 audible, no murmurs. Regular rhythm. Abdomen exam; soft, nontender. No organomegaly. Bowel sounds audible. Extremity exam; no edema. SUPERSONIC ENGINEER exam; patient is awake and follows simple commands. Results Result Diagram: 05/05/17 0445 05/05/17 0445 Results 24 hrs Laboratory Tests Test 05/04/17 12:40 05/04/17 15:16 05/04/17 16:58 05/04/17 19:03 Bedside Glucose 201 162 131 153 Test 05/04/17 21:26 05/05/17 01:30 05/05/17 04:45 05/05/17 04:46 Bedside Glucose 156 171 173 White Blood Count 14.1 H Red Blood Count 3.19 L Hemoglobin 10.0 L Hematocrit 28.8 L Mean Corpuscular Volume 90.3 Mean Corpuscular Hemoglobin 31.3 Mean Corpuscular Hemoglobin Concent 34.7 Red Cell Distribution Width 14.4 Platelet Count 92 L Mean Platelet Volume 11.1 H Neutrophils % 85.8 H Lymphocytes % 5.5 L Monocytes % 6.6 Eosinophils % 0.6 Basophils % 0.2 Nucleated Red Blood Cells % 0.0 Neutrophils # 12.1 H Lymphocytes # 0.8 Monocytes # 0.9 Eosinophils # 0.1 Basophils # 0.0 Nucleated Red Blood Cells # 0.0 Sodium Level 135 Potassium Level 3.7 Chloride Level 98 Carbon Dioxide Level 28 Anion Gap 13 Blood Urea Nitrogen 96 H Creatinine 6.45 H Glucose Level 150 Lactic Acid Level 1.2 Calcium Level 7.5 L Phosphorus Level 6.4 H Magnesium Level 1.8 Total Bilirubin 0.4 Direct Bilirubin 0.00 Indirect Bilirubin 0.4 Aspartate Amino Transf (AST/SGOT) 39 Alanine Aminotransferase (ALT/SGPT) 37 Alkaline Phosphatase 112 Total Protein 5.5 L Albumin 2.5 L Globulin 3.00 Albumin/Globulin Ratio 0.83 Test 05/05/17 05:00 05/05/17 08:52 05/05/17 11:01 Blood Gas Specimen Source Blood arterial Arterial Blood Date Drawn 05/05/2017 7:40:53 AM Arterial Blood pH (Temp corrected) 7.426 Arterial Blood pCO2 (Temp correct) 43.3 Arterial Blood pO2 (Temp corrected) 75.2 L Arterial Blood HCO3 27.8 H Arterial Blood Base Excess 3.0 Arterial Blood Oxygen Saturation 95.2 Marcos Test ACCEPTAB Arterial Blood Gas Puncture Site Right Radial Arterial Blood Carboxyhemoglobin 0.8 Arterial Blood Methemoglobin 0.2 Blood Gas A-a O2 Differential 153.0 H Oxyhemoglobin Percent 94.2 Total Hemoglobin 14.5 Blood Gas Temperature 37.0 Blood Gas Modality NASAL CANNULA FiO2 39.0 Blood Gas Critical Value Read Back MICHELLE RN Blood Gas Notified Whom CW Blood Gas Notified Time 05/05/2017 7:50:48 AM Bedside Glucose 194 198 Medications Medications Current Medications Ondansetron HCl (Zofran Inj) 4 mg Q6H PRN IV NAUSEA AND/OR VOMITING Last administered on 05/03/17 08:47; Admin Dose 4 MG; Start 05/02/17 at 19:00 Lorazepam 0.5 mg 0.5 mg Q2H PRN IV ANXIETY; Start 05/02/17 at 19:00 Meropenem/Sodium Chloride (Merrem 1 Gm/50 ml (Pmx)) 50 ml @ 100 mls/hr Q24H IVPB Last administered on 05/04/17 20:17; Admin Dose 100 MLS/HR; Start at 20:00 Hydromorphone HCl (Dilaudid) 1 mg Q4H PRN IV PAIN LEVEL 7-10 Last administered on 05/05/17 09:11; Admin Dose 1 MG; Start 05/02/17 at 23:00 Insulin Aspart (Novolog Insulin Pen) NOVOLOG *MODERATE* ALGORI... Q2 SC Last administered on 05/05/17 11:05; Admin Dose 4 UNIT; Start 05/03/17 at 14:30 Miscellaneous Information 1 ea NOTE XX ; Start 05/03/17 at 14:00 Glucose (Glutose) 15 gm Q15M PRN PO DECREASED GLUCOSE; Start 05/03/17 at 14:00 Glucose (Glutose) 22.5 gm Q15M PRN PO DECREASED GLUCOSE; Start 05/03/17 at 14: 00 Dextrose (D50w Syringe) 25 ml Q15M PRN IV DECREASED GLUCOSE; Start 05/03/17 at 14:00 Dextrose (D50w Syringe) 50 ml Q15M PRN IV DECREASED GLUCOSE; Start 05/03/17 at 14:00 Glucagon (Glucagen) 1 mg Q15M PRN IM DECREASED GLUCOSE; Start 05/03/17 at 14:00 Glucose (Glutose) 15 gm Q15M PRN BUCCAL DECREASED GLUCOSE; Start 05/03/17 at 14 :00 Bisacodyl 10 mg 10 mg DAILY PRN PA CONSTIPATION Last administered on 05/04/17 17:20; Admin Dose 10 MG; Start 05/03/17 at 17:00 Phenylephrine HCl 80 mg/Dextrose 250 ml @ 0 mls/hr TITRATE IV Last administered on 05/04/17 17:15; Admin Dose 20 MLS/HR; Start 05/03/17 at 17:00 Norepinephrine 16 mg/Dextrose 500 ml @ 1.87 mls/hr TITRATE IV ; Start 05/03/17 at 17:30 Sodium Bicarbonate/ Dextrose (Na Bicarb/D5W) 1,150 ml @ 150 mls/hr Q7H40M IV Last administered on 05/05/17 04:21; Admin Dose 150 MLS/HR; Start 05/03/17 at 19:30 Miscellaneous Information This patient bustillo... PRN PRN XX WOUND CARE; Start 05/03 at 19:00 Vancomycin HCl (Vancocin) 250 ml @ 125 mls/hr Q96H IVPB Last administered on 05/04/17 09:42; Admin Dose 125 MLS/HR; Start 05/04/17 at 10:00 Insulin Glargine (Lantus) 15 unit Q12 SC Last administered on 05/05/17 08:58; Admin Dose 15 UNIT; Start 05/04/17 at 21:00 Famotidine (Pepcid Iv) 20 mg DAILY IV Last administered on 05/05/17 08:54; Admin Dose 20 MG; Start 05/05/17 at 09:00 SUSANNAH GUERRIER May 05, 2017 11:48
[2017-05-05] MEDS: SOD CHLORIDE 0.9% 1,000 ML IV SCH (12:56)
--- NOTE | 2017-05-05 13:54 | PN ---
DATE: 05/05/2017 INFECTIOUS DISEASE PROGRESS NOTE SUBJECTIVE: No acute changes overnight. The patient is off pressors, lying comfortably in bed. VITAL SIGNS: Afebrile. T-max 98.9, T-current 98.7, pulse 119, respirations 15 , blood pressure 125/82, saturation 95 on room air. LABORATORY DATA: WBC 14.1, H and H 10 and 28.8, platelets 92, neutrophils 85.8 , BUN 96, creatinine 6.45. MICROBIOLOGY: Blood cultures remain negative. Urine culture negative. INDWELLINGS: The patient has High catheter and right upper extremity PICC line. PHYSICAL EXAMINATION: GENERAL: This is well-developed, fragile, elderly man who is awake, in no distress. HEENT: Head atraumatic, normocephalic. Sclerae anicteric. Buccal mucosa dry. NECK: Supple. CHEST: Rise symmetrical. Breath sounds diminished to bases. HEART: S1, S2. ABDOMEN: Distended. Soft. Bowel tones present. EXTREMITIES: Without cyanosis. ASSESSMENT: 1. Septic shock, now off pressors. 2. Acute pancreatitis. 3. Left occipital wound, status post surgical intervention culture grew methicillin-resistant Staphylococcus aureus. 4. Diabetes. 5. Peripheral vascular disease status post right below-knee amputation. 6. Seizure disorder. 7. Vptdu-gd-bxldogv kidney disease. PLAN: The patient is stable off pressors. Urine output improved. Hemodialysis on hold for now. He is being followed by multiple consultants. We will continue him on current regimen. Dictated By: JOHNNIE BARCLAY TIMBER CUTTER for GENARO MARIE/NTS Conf#: [id number] DID#: [id number] CC: DOMINGO ARELLANO MD;*EndCC* MTDD
--- NOTE | 2017-05-05 14:10 | PN ---
DATE: 05/05/2017 SUBJECTIVE: The patient remains in the intensive care unit, tachycardic in the one-teens, feeling b pablo. Denies any abdominal pain, but abdomen still remains distended. The patient's bicarbonate i s now normal and the patient's lipase is within normal range. PHYSICAL EXAMINATION: VITAL SIGNS: Temperature 98.7, pulse 118, respirations 13, blood pressure 121/76, saturation 95%. GENERAL: The patient is in no acute distress. HEENT: Left head wound, the patient is pale. CARDIOVASCULAR: S1 and S2, tachycardic. LUNGS: Decreased bilaterally. ABDOMEN: Soft, distended but not much pain noted. The patient denies pain. EXTREMITIES: Right BKA. Trace edema of the left foot. LABORATORY DATA: White count is 14.1, hemoglobin 10, hematocrit 29, platelet count of 92, neutrophi ls 86%, lymphocytes 6%. Chemistry: Sodium 135, potassium 3.7, chloride 98, bicarbonate 28, BUN 96, creatinine 6.45 improving, glucose of 150, magnesium 1.8, albumin 2.5, lipase 249, normal. Culture s: Urine and blood cultures are negative. MRSA screening is negative. Patient's chest x-ray dated yesterday shows no significant changes low lung volumes with bibasilar atelectasis. The patient's In and Out as well, where actually the patient's urine output is picking up. It was 3917 in and out 1740. He is positive 2.1 liters. MEDICATIONS: Include: 1. Lantus, I decreased the dose as the patient will be now off the bicarbonate drip. Is Lantus 7 u nits q.12. 3. Normal saline. I started him on normal saline at 80 mL an hour. 4. Pepcid 20 IV daily. 5. Vancomycin dosed per pharmacy. 6. Currently, off Levophed and off Phenylephrine. 7. Hypoglycemia protocol as directed. 8. Dilaudid 1 mg IV q.4 p.r.n. 9. Merrem 1 gram IV q.24 hours. 10. Zofran p.r.n. 11. DuoNeb p.r.n. 12. Ativan p.r.n. 13. Vancomycin p.r.n. ASSESSMENT AND PLAN: This is a 67-year-old male with history of meningioma status post cr aniotomy, diabetes mellitus, left forehead wound, CKD, right below knee amputation who presented wit h acute pancreatitis, metabolic acidosis and sepsis. 1. Respiratory. Remains stable. Noted above chest x-ray. Continue nasal cannula. ABG which was done, much improved, shows the following: pH of 7.426, pCO2 of 43, pO2 of 75, bicarbonate is now 28 , saturation is 95%. Again, will discontinue the bicarbonate drip. Continue to monitor closely. 2. Cardiovascular. Remains tachycardic. This is likely multifactorial. Continue to monitor close ly off pressors. May consider beta blockers if blood pressure remains stable. 3. Gastrointestinal. The patient with severe acute pancreatitis upon presentation with now normal lipase. Will obtain another KUB because his abdomen is distended to see if there is any evidence of ileus or obstruction. If negative, may consider advancing diet to clear liquid diet. 4. Continue Protonix for gastrointestinal prophylaxis. 5. Infectious disease. Empirically on broad-spectrum antibiotics with Merrem and vancomycin for po ssible infectious related to his pancreatitis, also for his left head wound, now clinically improvin g. 6. Acute renal failure, improving with bicarbonate drip and hydration. Dialysis currently on hold. Acidosis, resolved. 7. Anemia. H and H is stable. 8. The patient is FULL CODE. 9. Diabetes mellitus, low insulin as the patient is now normal saline. 10. Advance diet ____ diet. KUB is negative. 11. Monitor electrolytes closely and replace as needed. May consider enema if no bowel movements. 12. Thrombocytopenia, off blood thinners, observe. This is most likely secondary to sepsis. We wi ll follow. Dictated By: DOMINGO GILMORE/DAVIE Conf#: [id number] DID#: [id number]
--- NOTE | 2017-05-05 14:23 | RADRPT ---
PROCEDURE: XR Abdomen. CLINICAL INDICATION: Abdominal pain and distension. TECHNIQUE: AP supine abdomen x-ray. COMPARISON: None. FINDINGS: The bowel gas pattern is normal with no evidence of obstruction. There is a High catheter in the bladder. There are no abnormal calcifications overlying the urinary tracts. The osseus structures are unremarkable. IMPRESSION: 1. High catheter in the bladder. 2. No evidence of bowel obstruction. RPTAT: QQ .Ric Walker MD, MD Date Time Electronically viewed and signed by .Ric Walker MD, on 05/05/2017 14:22 .R/
--- NOTE | 2017-05-05 14:32 | PN ---
Date/Time of Note Date/Time of Note DATE: 05/05/17 TIME: 14:31 Assessment/Plan VTE Prophylaxis VTE Prophylaxis Intervention: other Lines/Catheters IV Catheter Type (from Nrsg): Peripheral IV Urinary Cath still in place: Yes Reason Cath still needed: urinary retention Assessment/Plan Chief Complaint/Hosp Course HISTORY OF PRESENT ILLNESS: Thank you for this referral. History was obtained from the patient partially, from extensive review of the old chart, discussion with staff. This is an unfortunate 67-year-old gentleman with multiple complicated medical history who was brought in from a shelter facility due to constipation and abdominal discomfort. Workup has shown severe sepsis, shock , and severe pancreatitis. The patient has been tachycardic. Heart rate has been as high as 160. He complains of diffuse abdominal pain. No chest pain or pressure. Denies any shortness of breath at this point. He has arf with baselin creatinine of 1.3 Imaging studies showed renal mass but no obstruction He is currently on ivf with stable bp seen in ICU d/w pulm arf is slightly improved. His UOP is increasing no nausea, vomiting, new rash, hematuria, melena, diaphoresis or fever cxr reviewed PHYSICAL EXAMINATION: HEENT: Normocephalic, atraumatic. No acute respiratory distress. Eyes: Pupils are equal. CARDIOVASCULAR: Tachycardic. PULMONARY: With no wheeze anteriorly. GASTROINTESTINAL: Distended, positive tender to palpation. Very diffuse tenderness and mild guarding, no rebound. EXTREMITIES: Positive right lower extremity BKA. NEUROLOGIC: He is awake, responds appropriately, with one-sided weakness. PSYCHIATRIC: Appears to be calm. ASSESSMENT AND PLAN: 1. ARF due to ATN. his uop is increasing and serum creatinine is slightly lower. imaging studies were reviewed. continue IVF and pressors. keep MAP > 60. will hold off on HD for now and reevaluate in am 2. Severe sepsis and septic shock. on abx and pressors 3. Severe pancreatitis. 4. Diabetes. 7. Severe metabolic acidosis. improving. ABG reviewed 8. Hypertension, currently in shock and hypotensive. 9. History of dyslipidemia. 10. History of below-knee amputation. 11. History of craniotomy and meningioma, status post craniotomy. 12. History of seizure disorder. Problems: Exam/Review of Systems Vital Signs Vitals Vital Signs Date Time Temp Pulse Resp B/P Pulse Ox O2 Delivery O2 Flow Rate FiO2 05/05/17 13:00 114 13 129/74 93 05/05/17 12:00 98.7 05/05/17 08:00 Nasal Cannula 6.0 05/04/17 18:32 40 Intake and Output 05/04/17 05/04/17 05/05/17 15:00 23:00 07:00 Intake Total 1593.02 ml 1155 ml 1155.00 ml Output Total 320 ml 420 ml 1200 ml Balance 1273.02 ml 735 ml -45.00 ml Results Result Diagram: 05/05/17 0445 05/05/17 0445 Results 24 hrs Laboratory Tests Test 05/04/17 15:16 05/04/17 16:58 05/04/17 19:03 05/04/17 21:26 Bedside Glucose 162 131 153 156 Test 05/05/17 01:30 05/05/17 04:45 05/05/17 04:46 05/05/17 05:00 Bedside Glucose 171 173 White Blood Count 14.1 H Red Blood Count 3.19 L Hemoglobin 10.0 L Hematocrit 28.8 L Mean Corpuscular Volume 90.3 Mean Corpuscular Hemoglobin 31.3 Mean Corpuscular Hemoglobin Concent 34.7 Red Cell Distribution Width 14.4 Platelet Count 92 L Mean Platelet Volume 11.1 H Neutrophils % 85.8 H Lymphocytes % 5.5 L Monocytes % 6.6 Eosinophils % 0.6 Basophils % 0.2 Nucleated Red Blood Cells % 0.0 Neutrophils # 12.1 H Lymphocytes # 0.8 Monocytes # 0.9 Eosinophils # 0.1 Basophils # 0.0 Nucleated Red Blood Cells # 0.0 Sodium Level 135 Potassium Level 3.7 Chloride Level 98 Carbon Dioxide Level 28 Anion Gap 13 Blood Urea Nitrogen 96 H Creatinine 6.45 H Glucose Level 150 Lactic Acid Level 1.2 Calcium Level 7.5 L Phosphorus Level 6.4 H Magnesium Level 1.8 Total Bilirubin 0.4 Direct Bilirubin 0.00 Indirect Bilirubin 0.4 Aspartate Amino Transf (AST/SGOT) 39 Alanine Aminotransferase (ALT/SGPT) 37 Alkaline Phosphatase 112 Total Protein 5.5 L Albumin 2.5 L Globulin 3.00 Albumin/Globulin Ratio 0.83 Lipase 249 Blood Gas Specimen Source Blood arterial Arterial Blood Date Drawn 05/05/2017 7:40:53 AM Arterial Blood pH (Temp corrected) 7.426 Arterial Blood pCO2 (Temp correct) 43.3 Arterial Blood pO2 (Temp corrected) 75.2 L Arterial Blood HCO3 27.8 H Arterial Blood Base Excess 3.0 Arterial Blood Oxygen Saturation 95.2 Marcos Test ACCEPTAB Arterial Blood Gas Puncture Site Right Radial Arterial Blood Carboxyhemoglobin 0.8 Arterial Blood Methemoglobin 0.2 Blood Gas A-a O2 Differential 153.0 H Oxyhemoglobin Percent 94.2 Total Hemoglobin 14.5 Blood Gas Temperature 37.0 Blood Gas Modality NASAL CANNULA FiO2 39.0 Blood Gas Critical Value Read Back [email or web address] RN Blood Gas Notified Whom CW Blood Gas Notified Time 05/05/2017 7:50:48 AM Test 05/05/17 08:52 05/05/17 11:01 Bedside Glucose 194 198 Medications Medications Current Medications Ondansetron HCl (Zofran Inj) 4 mg Q6H PRN IV NAUSEA AND/OR VOMITING Last administered on 05/03/17 08:47; Admin Dose 4 MG; Start 05/02/17 at 19:00 Lorazepam 0.5 mg 0.5 mg Q2H PRN IV ANXIETY; Start 05/02/17 at 19:00 Meropenem/Sodium Chloride (Merrem 1 Gm/50 ml (Pmx)) 50 ml @ 100 mls/hr Q24H IVPB Last administered on 05/04/17 20:17; Admin Dose 100 MLS/HR; Start at 20:00 Hydromorphone HCl (Dilaudid) 1 mg Q4H PRN IV PAIN LEVEL 7-10 Last administered on 05/05/17 09:11; Admin Dose 1 MG; Start 05/02/17 at 23:00 Insulin Aspart (Novolog Insulin Pen) NOVOLOG *MODERATE* ALGORI... Q2 SC Last administered on 05/05/17 11:05; Admin Dose 4 UNIT; Start 05/03/17 at 14:30 Miscellaneous Information 1 ea NOTE XX ; Start 05/03/17 at 14:00 Glucose (Glutose) 15 gm Q15M PRN PO DECREASED GLUCOSE; Start 05/03/17 at 14:00 Glucose (Glutose) 22.5 gm Q15M PRN PO DECREASED GLUCOSE; Start 05/03/17 at 14: 00 Dextrose (D50w Syringe) 25 ml Q15M PRN IV DECREASED GLUCOSE; Start 05/03/17 at 14:00 Dextrose (D50w Syringe) 50 ml Q15M PRN IV DECREASED GLUCOSE; Start 05/03/17 at 14:00 Glucagon (Glucagen) 1 mg Q15M PRN IM DECREASED GLUCOSE; Start 05/03/17 at 14:00 Glucose (Glutose) 15 gm Q15M PRN BUCCAL DECREASED GLUCOSE; Start 05/03/17 at 14 :00 Bisacodyl 10 mg 10 mg DAILY PRN [place] CONSTIPATION Last administered on 05/04/17 17:20; Admin Dose 10 MG; Start 05/03/17 at 17:00 Phenylephrine HCl 80 mg/Dextrose 250 ml @ 0 mls/hr TITRATE IV Last administered on 05/04/17 17:15; Admin Dose 20 MLS/HR; Start 05/03/17 at 17:00 Norepinephrine/ Dextrose (Levophed/D5W) 500 ml @ 1.87 mls/hr TITRATE IV ; Start 05/03/17 at 17:30 Miscellaneous Information This patient bustillo... PRN PRN XX WOUND CARE; Start 05/03 at 19:00 Vancomycin HCl (Vancocin) 250 ml @ 125 mls/hr Q96H IVPB Last administered on 05/04/17 09:42; Admin Dose 125 MLS/HR; Start 05/04/17 at 10:00 Famotidine 20 mg 20 mg DAILY IV Last administered on 05/05/17 08:54; Admin Dose 20 MG; Start 05/05/17 at 09:00 Sodium Chloride (NS) 1,000 ml @ 80 mls/hr [id number] IV Last administered on 05/05 12:56; Admin Dose 80 MLS/HR; Start 05/05/17 at 12:30 Insulin Glargine (Lantus) 7 unit Q12 SC ; Start 05/05/17 at 21:00 ESEQUIEL CORONA DO May 05, 2017 14:32
--- NOTE | 2017-05-05 17:08 | CONS ---
Date/Time of Note Date/Time of Note DATE: 05/05/17 TIME: 17:06 Consult Date/Type/Reason Admit Date/Time May 03, 2017 at 12:49 Initial Consult Date 05/03/17 Type of Consultation: CARDIOLOGY Ordering Provider: BRYAN MINOR DO Subjective CARDIOLOGY FOLLOW UP NOTE/ Critical care note: S: d/w staff and rhythm was reviewed. pt remains in sinus tachycardia ,but HR has improved and pt is off of neosynephrine drip he still c/o diffuse abdominal pain. he denies any cp or sob to me. he is still in ICU and off of neosynephrine drip O: General: in no distress HEENT: NC/AT. pupils are equal. round. NECK: NO JVD. no stridor. CV: tachycardic. . systolic murmur; no gallop or rubs. PULM: no wheezing or rhonchi. GI: mild tenderness. no rebound. Extremity: s/p R LE amputation. neuro: awake and alert, OX3. with right sided weakness Psych: calm and pleasant rectal: deferred : normal male ECHO Personally reviewed: 1. Hyperdynamic left ventricular systolic function. Normal left ventricular cavity size. Mild concentric left ventricular hypertrophy. Ejection fraction is visually estimated at 70 %. Abnormal Diastolic Function. 2. The left atrium is normal in size. 3. Mild mitral leaflet calcification. Mild mitral annular calcification. Trace mitral regurgitation. 4. No significant aortic stenosis or insufficiency. Aortic cusps appear mildly calcified. Non coronary cusp appears moderately calcified. 5. Normal appearance of the tricuspid valve. Estimated peak PA systolic pressure 56 mmHg. There is mild tricuspid regurgitation. 6. The IVC is not well visualized. Objective Vital Signs Date Time Temp Pulse Resp B/P Pulse Ox O2 Delivery O2 Flow Rate FiO2 05/05/17 16:00 98.8 118 17 123/69 95 05/05/17 08:00 Nasal Cannula 6.0 05/04/17 18:32 40 Intake and Output 05/04/17 05/04/17 05/05/17 15:00 23:00 07:00 Intake Total 1593.02 ml 1155 ml 1155.00 ml Output Total 320 ml 420 ml 1200 ml Balance 1273.02 ml 735 ml -45.00 ml Results/Medications Result Diagram: 05/05/1744405/05/17444 Results 24 hrs Laboratory Tests Test 05/04/17 19:03 05/04/17 21:26 05/05/17 01:30 05/05/17 04:45 Bedside Glucose 153 156 171 White Blood Count 14.1 H Red Blood Count 3.19 L Hemoglobin 10.0 L Hematocrit 28.8 L Mean Corpuscular Volume 90.3 Mean Corpuscular Hemoglobin 31.3 Mean Corpuscular Hemoglobin Concent 34.7 Red Cell Distribution Width 14.4 Platelet Count 92 L Mean Platelet Volume 11.1 H Neutrophils % 85.8 H Lymphocytes % 5.5 L Monocytes % 6.6 Eosinophils % 0.6 Basophils % 0.2 Nucleated Red Blood Cells % 0.0 Neutrophils # 12.1 H Lymphocytes # 0.8 Monocytes # 0.9 Eosinophils # 0.1 Basophils # 0.0 Nucleated Red Blood Cells # 0.0 Sodium Level 135 Potassium Level 3.7 Chloride Level 98 Carbon Dioxide Level 28 Anion Gap 13 Blood Urea Nitrogen 96 H Creatinine 6.45 H Glucose Level 150 Lactic Acid Level 1.2 Calcium Level 7.5 L Phosphorus Level 6.4 H Magnesium Level 1.8 Total Bilirubin 0.4 Direct Bilirubin 0.00 Indirect Bilirubin 0.4 Aspartate Amino Transf (AST/SGOT) 39 Alanine Aminotransferase (ALT/SGPT) 37 Alkaline Phosphatase 112 Total Protein 5.5 L Albumin 2.5 L Globulin 3.00 Albumin/Globulin Ratio 0.83 Lipase 249 Test 05/05/17 04:46 05/05/17 05:00 05/05/17 08:52 05/05/17 11:01 Bedside Glucose 173 194 198 Blood Gas Specimen Source Blood arterial Arterial Blood Date Drawn 05/05/2017 7:40:53 AM Arterial Blood pH (Temp corrected) 7.426 Arterial Blood pCO2 (Temp correct) 43.3 Arterial Blood pO2 (Temp corrected) 75.2 L Arterial Blood HCO3 27.8 H Arterial Blood Base Excess 3.0 Arterial Blood Oxygen Saturation 95.2 Marcos Test ACCEPTAB Arterial Blood Gas Puncture Site Right Radial Arterial Blood Carboxyhemoglobin 0.8 Arterial Blood Methemoglobin 0.2 Blood Gas A-a O2 Differential 153.0 H Oxyhemoglobin Percent 94.2 Total Hemoglobin 14.5 Blood Gas Temperature 37.0 Blood Gas Modality NASAL CANNULA FiO2 39.0 Blood Gas Critical Value Read Back MICHELLE RN Blood Gas Notified Whom CW Blood Gas Notified Time 05/05/2017 7:50:48 AM Test 05/05/17 16:36 Bedside Glucose 133 Medications Current Medications Ondansetron HCl (Zofran Inj) 4 mg Q6H PRN IV NAUSEA AND/OR VOMITING Last administered on 05/03/17 08:47; Admin Dose 4 MG; Start 05/02/17 at 19:00 Lorazepam 0.5 mg 0.5 mg Q2H PRN IV ANXIETY; Start 05/02/17 at 19:00 Meropenem/Sodium Chloride (Merrem 1 Gm/50 ml (Pmx)) 50 ml @ 100 mls/hr Q24H IVPB Last administered on 05/04/17 20:17; Admin Dose 100 MLS/HR; Start at 20:00 Hydromorphone HCl (Dilaudid) 1 mg Q4H PRN IV PAIN LEVEL 7-10 Last administered on 05/05/17 09:11; Admin Dose 1 MG; Start 05/02/17 at 23:00 Insulin Aspart (Novolog Insulin Pen) NOVOLOG *MODERATE* ALGORI... Q2 SC Last administered on 05/05/17 11:05; Admin Dose 4 UNIT; Start 05/03/17 at 14:30 Miscellaneous Information 1 ea NOTE XX ; Start 05/03/17 at 14:00 Glucose (Glutose) 15 gm Q15M PRN PO DECREASED GLUCOSE; Start 05/03/17 at 14:00 Glucose (Glutose) 22.5 gm Q15M PRN PO DECREASED GLUCOSE; Start 05/03/17 at 14: 00 Dextrose (D50w Syringe) 25 ml Q15M PRN IV DECREASED GLUCOSE; Start 05/03/17 at 14:00 Dextrose (D50w Syringe) 50 ml Q15M PRN IV DECREASED GLUCOSE; Start 05/03/17 at 14:00 Glucagon (Glucagen) 1 mg Q15M PRN IM DECREASED GLUCOSE; Start 05/03/17 at 14:00 Glucose (Glutose) 15 gm Q15M PRN BUCCAL DECREASED GLUCOSE; Start 05/03/17 at 14 :00 Bisacodyl 10 mg 10 mg DAILY PRN [place] CONSTIPATION Last administered on 05/04/17 17:20; Admin Dose 10 MG; Start 05/03/17 at 17:00 Phenylephrine HCl 80 mg/Dextrose 250 ml @ 0 mls/hr TITRATE IV Last administered on 05/04/17 17:15; Admin Dose 20 MLS/HR; Start 05/03/17 at 17:00 Norepinephrine/ Dextrose (Levophed/D5W) 500 ml @ 1.87 mls/hr TITRATE IV ; Start 05/03/17 at 17:30 Miscellaneous Information This patient bustillo... PRN PRN XX WOUND CARE; Start 05/03 at 19:00 Vancomycin HCl (Vancocin) 250 ml @ 125 mls/hr Q96H IVPB Last administered on 05/04/17 09:42; Admin Dose 125 MLS/HR; Start 05/04/17 at 10:00 Famotidine 20 mg 20 mg DAILY IV Last administered on 05/05/17 08:54; Admin Dose 20 MG; Start 05/05/17 at 09:00 Sodium Chloride (NS) 1,000 ml @ 80 mls/hr [id number] IV Last administered on 05/05 12:56; Admin Dose 80 MLS/HR; Start 05/05/17 at 12:30 Insulin Glargine (Lantus) 7 unit Q12 SC ; Start 05/05/17 at 21:00 Assessment/Plan Chief Complaint/Hosp Course 1. Sinus tachycardia secondary to below. 2. Severe sepsis and septic shock. 3. Severe pancreatitis. 4. Diabetes. 7. Severe metabolic acidosis. 8. HX of Hypertension, currently in shock and hypotensive. 9. History of dyslipidemia. 10. History of RLE amputation. 11. History of craniotomy and meningioma, status post craniotomy. 12. History of seizure disorder. 13. JESUSITA on CKD. 14. hypo Na. 15. mildly abnormal trop due to above RECOMMENDATIONS: Antibiotic is managed as per infectious disease and Dr. Vincent. echo reviewed and did not show any evidence of LV dysfunction or effusion to explain the pt's tachycardia Electrolytes will be checked periodically and adjusted. cont Insulin. We will close f.u with renal consultants rec. currently urine output has improved. THANK YOU CARMEN MELO MD [facility]. Problems: CARMEN MELO MD May 05, 2017 17:08
[2017-05-05] MEDS: MEROPENEM 1 GM/50ML(PMX) 50 ML IVPB SCH (20:37)
[2017-05-06] VITALS (27 sets, daily range): BP systolic 129–165; BP diastolic 79–122; PULSE 88–130; RESP 13–37
[2017-05-06] MEDS: INSULIN ASPART [NOVOLOG] 3 ML PEN SC SCH ×6 (00:41→21:06)
[2017-05-06] MEDS: SOD CHLORIDE 0.9% 1,000 ML IV SCH ×2 (00:41→13:55)
[2017-05-06 05:21] LABS: ABNORMAL IP MESSAGE 1; BASOPHILS % 0.2 % (0.0-2.0); EOSINOPHILS # 0.1 10^3/ul (0.0-0.5); EOSINOPHILS % 0.7 % (0.0-7.0); HEMATOCRIT 30.9 % (42.0-52.0); HEMOGLOBIN 10.6 g/dl (14.0-18.0); LYMPHOCYTES # 0.6 10^3/ul (0.8-2.9); LYMPHOCYTES % 4.3 % (15.0-51.0); MEAN CORPUSCULAR HEMOGLOBIN 31.4 pg (29.0-33.0); MEAN CORPUSCULAR HGB CONC 34.3 g/dl (32.0-37.0); MEAN CORPUSCULAR VOLUME 91.4 fl (82.0-101.0); MEAN PLATELET VOLUME 10.5 fl (7.4-10.4); MONOCYTE # 0.8 10^3/ul (0.3-0.9); MONOCYTES % 6.1 % (0.0-11.0); NEUTROPHIL # 10.9 10^3/ul (1.6-7.5); NEUTROPHILS % 86.2 % (39.0-77.0); PLATELET COUNT 79 10^3/UL (140-415); POSITIVE DIFF @See below; RED BLOOD COUNT 3.38 10^6/ul (4.70-6.10); RED CELL DISTRIBUTION WIDTH 14.1 % (11.5-14.5); WHITE BLOOD COUNT 12.7 10^3/ul (4.8-10.8)
[2017-05-06 05:44] LABS: ALBUMIN 2.8 g/dl (3.3-4.9); ALBUMIN/GLOBULIN RATIO 0.96; BILIRUBIN,INDIRECT 0.6 mg/dl (0-1.1); BILIRUBIN,TOTAL 0.6 mg/dl (0.2-1.3); CALCIUM 8.6 mg/dl (8.4-10.2); CREATININE 5.28 mg/dl (0.61-1.24); POTASSIUM 3.9 mmol/L (3.5-5.1); TOTAL PROTEIN 5.7 g/dl (6.1-8.1)
[2017-05-06 05:49] LABS: MAGNESIUM 1.8 mg/dl (1.7-2.5); PHOSPHORUS 6.3 mg/dl (2.5-4.9)
[2017-05-06] MEDS: FAMOTIDINE 20 MG INJ IV SCH (08:20)
[2017-05-06] MEDS: INSULIN GLARGINE [LANtus] 3 ML PEN SC SCH (08:21)
[2017-05-06] MEDS ORDERED: METOPROLOL 25 MG TAB PO SCH (10:00)
[2017-05-06] MEDS: LORAZEPAM 0.5 MG TAB PO SCH ×3 (10:19→21:01)
--- NOTE | 2017-05-06 10:34 | CONS ---
Date/Time of Note Date/Time of Note DATE: 05/06/17 TIME: 10:32 Assessment/Plan Assessment/Plan Additional Assessment/Plan Assessment and recommendations; 1. Patient admitted with sepsis etiology is unclear, however clinically much improved. 2. Shock with interval resolution. Patient off pressor support. 3. Acute pancreatitis with interval improvement. 4. History of diabetes and hypertension. 5. History of peripheral vascular disease, status post right below-knee amputation. 6. History of CVA . 7. Mild anemia and thrombocytopenia. No overt bleeding. Continue current treatment. Patient can be transferred to the medical floor. Consultation Date/Type/Reason Admit Date/Time May 03, 2017 at 12:49 Initial Consult Date 05/03/17 Type of Consultation: Pulmonary/critical care Referring Provider: BRYAN MINOR DO 24 HR Interval Summary Free Text/Dictation Patient's condition is stable. Remains awake. Has remained hemodynamically stable. Off pressor support. General exam; elderly male, awake, currently in no distress. Exam/Review of Systems Vital Signs Vitals Vital Signs Date Time Temp Pulse Resp B/P Pulse Ox O2 Delivery O2 Flow Rate FiO2 05/06/17 09:00 122 16 148/93 96 Nasal Cannula 4.0 05/06/17 08:00 97.6 05/04/17 18:32 40 Intake and Output 05/05/17 05/05/17 05/06/17 15:00 23:00 07:00 Intake Total 247.5 ml 930 ml 920 ml Output Total 1300 ml 915 ml 800 ml Balance -1052.5 ml 15 ml 120 ml Exam HEENT exam; supple neck, no JVD. No lymphadenopathy. Midline trachea. No thyromegaly. Pupils are midsize and reactive to light. There is a dressing applied over the left parietal area. Chest exam; diminished but clear breath sounds. S1-S2 audible, no murmurs. Regular rhythm. Abdomen exam; soft, protuberant. No organomegaly. Bowel sounds audible. Extremity exam; no edema. There is a stable well-healed right below-knee amputation stump. 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 Results Result Diagram: 05/06/17 0430 05/06/17 0444 Results 24 hrs Laboratory Tests Test 05/05/17 11:01 05/05/17 16:36 05/05/17 18:31 05/05/17 20:36 Bedside Glucose 198 133 135 107 Test 05/06/17 00:35 05/06/17 04:30 05/06/17 04:44 05/06/17 04:50 Bedside Glucose 83 119 White Blood Count 12.7 H Red Blood Count 3.38 L Hemoglobin 10.6 L Hematocrit 30.9 L Mean Corpuscular Volume 91.4 Mean Corpuscular Hemoglobin 31.4 Mean Corpuscular Hemoglobin Concent 34.3 Red Cell Distribution Width 14.1 Platelet Count 79 L Mean Platelet Volume 10.5 H Neutrophils % 86.2 H Lymphocytes % 4.3 L Monocytes % 6.1 Eosinophils % 0.7 Basophils % 0.2 Nucleated Red Blood Cells % 0.0 Neutrophils # 10.9 H Lymphocytes # 0.6 L Monocytes # 0.8 Eosinophils # 0.1 Basophils # 0.0 Nucleated Red Blood Cells # 0.0 Phosphorus Level 6.3 H Magnesium Level 1.8 Sodium Level 143 Potassium Level 3.9 Chloride Level 103 Carbon Dioxide Level 29 Anion Gap 15 Blood Urea Nitrogen 79 H Creatinine 5.28 H Glucose Level 128 Calcium Level 8.6 Total Bilirubin 0.6 Direct Bilirubin 0.00 Indirect Bilirubin 0.6 Aspartate Amino Transf (AST/SGOT) 24 Alanine Aminotransferase (ALT/SGPT) 38 Alkaline Phosphatase 128 H Total Protein 5.7 L Albumin 2.8 L Globulin 2.90 Albumin/Globulin Ratio 0.96 Lipase 52 Test 05/06/17 08:10 Bedside Glucose 138 Medications Medications Current Medications Ondansetron HCl (Zofran Inj) 4 mg Q6H PRN IV NAUSEA AND/OR VOMITING Last administered on 05/03/17 08:47; Admin Dose 4 MG; Start 05/02/17 at 19:00 Lorazepam 0.5 mg 0.5 mg Q2H PRN IV ANXIETY; Start 05/02/17 at 19:00 Meropenem/Sodium Chloride (Merrem 1 Gm/50 ml (Pmx)) 50 ml @ 100 mls/hr Q24H IVPB Last administered on 05/05/17 20:37; Admin Dose 100 MLS/HR; Start at 20:00 Hydromorphone HCl (Dilaudid) 1 mg Q4H PRN IV PAIN LEVEL 7-10 Last administered on 05/05/17 22:57; Admin Dose 1 MG; Start 05/02/17 at 23:00 Miscellaneous Information 1 ea NOTE XX ; Start 05/03/17 at 14:00 Glucose (Glutose) 15 gm Q15M PRN PO DECREASED GLUCOSE; Start 05/03/17 at 14:00 Glucose (Glutose) 22.5 gm Q15M PRN PO DECREASED GLUCOSE; Start 05/03/17 at 14: 00 Dextrose (D50w Syringe) 25 ml Q15M PRN IV DECREASED GLUCOSE; Start 05/03/17 at 14:00 Dextrose (D50w Syringe) 50 ml Q15M PRN IV DECREASED GLUCOSE; Start 05/03/17 at 14:00 Glucagon (Glucagen) 1 mg Q15M PRN IM DECREASED GLUCOSE; Start 05/03/17 at 14:00 Glucose (Glutose) 15 gm Q15M PRN BUCCAL DECREASED GLUCOSE; Start 05/03/17 at 14 :00 Bisacodyl 10 mg 10 mg DAILY PRN [place] CONSTIPATION Last administered on 05/04/17 17:20; Admin Dose 10 MG; Start 05/03/17 at 17:00 Phenylephrine HCl/ Dextrose (Dean-Syneph/D5W) 250 ml @ 0 mls/hr TITRATE IV Last administered on 05/04/17 17:15; Admin Dose 20 MLS/HR; Start 05/03/17 at 17:00 Miscellaneous Information This patient bustillo... PRN PRN XX WOUND CARE; Start 05/03 at 19:00 Vancomycin HCl (Vancocin) 250 ml @ 125 mls/hr Q96H IVPB Last administered on 05/04/17 09:42; Admin Dose 125 MLS/HR; Start 05/04/17 at 10:00 Famotidine 20 mg 20 mg DAILY IV Last administered on 05/06/17 08:20; Admin Dose 20 MG; Start 05/05/17 at 09:00 Sodium Chloride (NS) 1,000 ml @ 80 mls/hr [id number] IV Last administered on 00:41; Admin Dose 80 MLS/HR; Start 05/05/17 at 12:30 Metoprolol Tartrate (Lopressor) 25 mg BID PO Last administered on 05/06/17 10 :19; Admin Dose 25 MG; Start 05/06/17 at 10:00 Insulin Glargine (Lantus) 10 unit DAILY SC ; Start 05/07/17 at 09:00 Lorazepam (Ativan) 0.5 mg BID PO Last administered on 05/06/17t 10:19; Admin Dose 0.5 MG; Start 05/06/17 at 10:00 SUSANNAH GUERRIER May 06, 2017 10:34
--- NOTE | 2017-05-06 11:41 | PN ---
DATE: 05/06/2017 SUBJECTIVE: Patient overall is improving, remains in the intensive care unit, tachycardic in the 12 0s. The patient tolerating clear liquid diet. The patient has no abdominal pain. Kidney function continues to improve as the patient has good urine output. Case discussed with nursing staff in [facility]. The patient is afebrile, blood pressure is now in the 130s to the 150s. PHYSICAL EXAMINATION: VITAL SIGNS: Temperature 98.6, pulse 120, respirations 20, blood pressure /92, saturation 94% on 6 liters nasal cannula. GENERAL: The patient is slightly confused. HEENT: Left forehead parietal area wound. CARDIOVASCULAR: S1 and S2, tachycardic. LUNGS: Decreased bilaterally, otherwise clear. ABDOMEN: Soft, distended, but no tenderness. EXTREMITIES: Right. LABORATORY DATA: White count is 12.7, hemoglobin 10.6, hematocrit 31, platelet count 79, low, neutr ophils 86%, lymphocytes 4%. Chemistry: Sodium is 143, potassium is 3.9, chloride 103, bicarbonate 29, BUN is 79, creatinine 5.28 and glucose 128. Last glucose of 138 and 119. I did reduce the shara ent's insulin. AST normal at 24, ALT 38, alkaline phosphatase 128, albumin is 2.8. Lipase is catie l at 52. KUB shows High catheter in the bladder, no evidence of bowel obstruction. Blood cultures , urine culture negative. MRSA screening negative. MEDICATIONS: Reviewed and include: 1. Lantus 70 units q.12h. 2. Insulin aspart per sliding scale q.4. q.a.c. and at bedtime. 3. Normal saline 80 mL an hour. 4. Pepcid 20 IV daily. 5. Vancomycin dose per pharmacy. 6. Phenylephrine as directed. Currently off, hypoglycemia protocol. 7. Dilaudid. 8. Merrem IV daily. 9. Zofran p.r.n. 10. DuoNeb p.r.n. 11. Ativan. 12. Vancomycin p.r.n. ASSESSMENT AND PLAN: This is a 67-year-old male with history of meningioma status post cr aniotomy, diabetes mellitus, left forehead wound, CKD, right AKA amputation who presented with acute pancreatitis tachycardia, sepsis, metabolic acidosis. 1. Respiratory. Remains stable. Continue all to titrate to keep saturation greater than 90%. Pul monary is following. 2. Cardiovascular. Remains tachycardic. The blood pressure on the higher side. We started the pa ishaannt on beta blockers. The cause may be pain, anxiety, sepsis. 3. Gastrointestinal. The patient is status post acute pancreatitis. Lipase is normal. The patien t with no abdominal pain. Diet is advanced to clear liquid. May advance it further as tolerated. 4. Continue Protonix for GI prophylaxis. 5. Off blood thinners secondary to thrombocytopenia. 6. Infectious disease, empirically on vancomycin and Merrem. The white count is trending down. Th e patient is afebrile, clinically improving. 7. Acute renal failure. The patient's urine output has improved, metabolic acidosis, resolved. Co ntinue gentle hydration. No need for dialysis. 8. Anemia. Hemoglobin and hematocrit remain stable. 9. The patient is FULL CODE. 10. Diabetes mellitus. Will reduce insulin dose, as sugar levels are in the low 100s 11. I would advance diet further. 12. Transfer to telemetry unit. 13. Left forehead wound. Once more stable, we will consult neurosurgery, Dr. Christian, for further re commendation. We will follow. Dictated By: DOMINGO GILMORE/DAVIE Conf#: [id number] DID#: [id number]
--- NOTE | 2017-05-06 13:11 | CONS ---
Date/Time of Note Date/Time of Note DATE: 05/06/17 TIME: 13:10 Consult Date/Type/Reason Admit Date/Time May 03, 2017 at 12:49 Initial Consult Date 05/03/17 Type of Consultation: nephrology Ordering Provider: BRYAN MINOR DO Subjective pt. off hd, good uop seen in icu meds reviewed PHYSICAL EXAMINATION: HEENT: Normocephalic, atraumatic. No acute respiratory distress. Eyes: Pupils are equal. CARDIOVASCULAR: Tachycardic. PULMONARY: With no wheeze anteriorly. GASTROINTESTINAL: Distended, positive tender to palpation. Very diffuse tenderness and mild guarding, no rebound. EXTREMITIES: Positive right lower extremity BKA. NEUROLOGIC: He is awake, responds appropriately, with one-sided weakness. PSYCHIATRIC: Appears to be calm. Objective Vital Signs Date Time Temp Pulse Resp B/P Pulse Ox O2 Delivery O2 Flow Rate FiO2 05/06/17 12:00 100 05/06/17 11:45 Nasal Cannula 3.0 05/06/17 11:00 19 151/90 95 05/06/17 08:00 97.6 05/04/17 18:32 40 Intake and Output 05/05/17 05/05/17 05/06/17 15:00 23:00 07:00 Intake Total 247.5 ml 930 ml 920 ml Output Total 1300 ml 915 ml 800 ml Balance -1052.5 ml 15 ml 120 ml Results/Medications Result Diagram: 05/06/17 0430 05/06/17 0444 Results 24 hrs Laboratory Tests Test 05/05/17 16:36 05/05/17 18:31 05/05/17 20:36 05/06/17 00:35 Bedside Glucose 133 135 107 83 Test 05/06/17 04:30 05/06/17 04:44 05/06/17 04:50 05/06/17 08:10 White Blood Count 12.7 H Red Blood Count 3.38 L Hemoglobin 10.6 L Hematocrit 30.9 L Mean Corpuscular Volume 91.4 Mean Corpuscular Hemoglobin 31.4 Mean Corpuscular Hemoglobin Concent 34.3 Red Cell Distribution Width 14.1 Platelet Count 79 L Mean Platelet Volume 10.5 H Neutrophils % 86.2 H Lymphocytes % 4.3 L Monocytes % 6.1 Eosinophils % 0.7 Basophils % 0.2 Nucleated Red Blood Cells % 0.0 Neutrophils # 10.9 H Lymphocytes # 0.6 L Monocytes # 0.8 Eosinophils # 0.1 Basophils # 0.0 Nucleated Red Blood Cells # 0.0 Phosphorus Level 6.3 H Magnesium Level 1.8 Sodium Level 143 Potassium Level 3.9 Chloride Level 103 Carbon Dioxide Level 29 Anion Gap 15 Blood Urea Nitrogen 79 H Creatinine 5.28 H Glucose Level 128 Calcium Level 8.6 Total Bilirubin 0.6 Direct Bilirubin 0.00 Indirect Bilirubin 0.6 Aspartate Amino Transf (AST/SGOT) 24 Alanine Aminotransferase (ALT/SGPT) 38 Alkaline Phosphatase 128 H Total Protein 5.7 L Albumin 2.8 L Globulin 2.90 Albumin/Globulin Ratio 0.96 Lipase 52 Bedside Glucose 119 138 Test 05/06/17 11:26 Bedside Glucose 166 Medications Current Medications Ondansetron HCl (Zofran Inj) 4 mg Q6H PRN IV NAUSEA AND/OR VOMITING Last administered on 05/03/17 08:47; Admin Dose 4 MG; Start 05/02/17 at 19:00 Lorazepam 0.5 mg 0.5 mg Q2H PRN IV ANXIETY; Start 05/02/17 at 19:00 Meropenem/Sodium Chloride (Merrem 1 Gm/50 ml (Pmx)) 50 ml @ 100 mls/hr Q24H IVPB Last administered on 05/05/17 20:37; Admin Dose 100 MLS/HR; Start at 20:00 Hydromorphone HCl (Dilaudid) 1 mg Q4H PRN IV PAIN LEVEL 7-10 Last administered on 05/05/17 22:57; Admin Dose 1 MG; Start 05/02/17 at 23:00 Miscellaneous Information 1 ea NOTE XX ; Start 05/03/17 at 14:00 Glucose (Glutose) 15 gm Q15M PRN PO DECREASED GLUCOSE; Start 05/03/17 at 14:00 Glucose (Glutose) 22.5 gm Q15M PRN PO DECREASED GLUCOSE; Start 05/03/17 at 14: 00 Dextrose (D50w Syringe) 25 ml Q15M PRN IV DECREASED GLUCOSE; Start 05/03/17 at 14:00 Dextrose (D50w Syringe) 50 ml Q15M PRN IV DECREASED GLUCOSE; Start 05/03/17 at 14:00 Glucagon (Glucagen) 1 mg Q15M PRN IM DECREASED GLUCOSE; Start 05/03/17 at 14:00 Glucose (Glutose) 15 gm Q15M PRN BUCCAL DECREASED GLUCOSE; Start 05/03/17 at 14 :00 Bisacodyl 10 mg 10 mg DAILY PRN [place] CONSTIPATION Last administered on 05/04/17 17:20; Admin Dose 10 MG; Start 05/03/17 at 17:00 Phenylephrine HCl/ Dextrose (Dean-Syneph/D5W) 250 ml @ 0 mls/hr TITRATE IV Last administered on 05/04/17 17:15; Admin Dose 20 MLS/HR; Start 05/03/17 at 17:00 Miscellaneous Information This patient bustillo... PRN PRN XX WOUND CARE; Start 05/03 at 19:00 Vancomycin HCl (Vancocin) 250 ml @ 125 mls/hr Q96H IVPB Last administered on 05/04/17 09:42; Admin Dose 125 MLS/HR; Start 05/04/17 at 10:00 Famotidine 20 mg 20 mg DAILY IV Last administered on 05/06/17 08:20; Admin Dose 20 MG; Start 05/05/17 at 09:00 Sodium Chloride (NS) 1,000 ml @ 80 mls/hr [id number] IV Last administered on 00:41; Admin Dose 80 MLS/HR; Start 05/05/17 at 12:30 Metoprolol Tartrate (Lopressor) 25 mg BID PO Last administered on 05/06/17 10 :19; Admin Dose 25 MG; Start 05/06/17 at 10:00 Insulin Glargine (Lantus) 10 unit DAILY SC ; Start 05/07/17 at 09:00 Lorazepam (Ativan) 0.5 mg BID PO Last administered on 05/06/17 10:19; Admin Dose 0.5 MG; Start 05/06/17 at 10:00 Assessment/Plan Chief Complaint/Hosp Course 1. ARF due to ATN. his uop is increasing and serum creatinine is slightly lower. imaging studies were reviewed. continue IVF and pressors. keep MAP > 60. will hold off on HD for now and reevaluate in am 2. Severe sepsis and septic shock. on abx and pressors 3. Severe pancreatitis. 4. Diabetes. 7. Severe metabolic acidosis. improving. ABG reviewed 8. Hypertension, currently in shock and hypotensive. 9. History of dyslipidemia. 10. History of below-knee amputation. 11. History of craniotomy and meningioma, status post craniotomy. 12. History of seizure disorder. Problems: PADMAJA ESQUIVEL MD May 06, 2017 13:11
--- NOTE | 2017-05-06 15:15 | PN ---
DATE: 05/06/2017 SUBJECTIVE: Patient is awake, looks comfortable, no fevers overnight. VITAL SIGNS: Temperature 97.6, pulse 120, respirations 18, blood pressure 141/86, saturation 96% on 4 liters. WBC 12.7, H and H 10.6 and 30.9, platelets 79, neutrophils 86.2. BUN 79, creatinine 5.2 8. MICROBIOLOGY: Blood and urine cultures since admission negative. ANTIMICROBIALS: The patient is on 1. Vancomycin. 2. Meropenem, day #5. INDWELLINGS: High, PICC line. PHYSICAL EXAMINATION: GENERAL: Well-developed, fragile, elderly man who is in no distress. HEENT: Head atraumatic, normocephalic. Sclerae anicteric. Buccal mucosa dry. NECK: Supple. CHEST: Rise symmetrical. Breath sounds diminished to bases. HEART: S1, S2. ABDOMEN: Soft. Bowel tones hypoactive. EXTREMITIES: Without cyanosis. ASSESSMENT: 1. Septic shock, off pressors. 2. Acute pancreatitis. 3. Acute on chronic kidney disease. 4. History of occipital wound MRSA with repeat cultures negative. 5. Peripheral vascular disease with a history of right below knee amputation. PLAN: Patient is hemodynamically stable off pressors. He is being followed by multiple consultants , renal function slowly improving. WBC tracing down. Continue present care. Dictated By: JOHNNIE BARCLAY PERSONNEL SECURITY ASSISTANT for GENARO MARIE/DAVIE Conf#: [id number] DID#: [id number]
[2017-05-06] MEDS: LORAZEPAM 2 MG INJ IV PRN (16:03)
--- NOTE | 2017-05-06 17:05 | PN ---
Date/Time of Note Date/Time of Note DATE: 05/06/17 TIME: 16:52 Assessment/Plan Lines/Catheters IV Catheter Type (from Nrs): Peripheral IV High in Place (from Nrs): Yes Assessment/Plan Chief Complaint/Hosp Course 1. Abdominal pain: CT with ?sbo (doubt) vs. ileus and pancreatitis; concern for abdominal compartment syndrome: (improved abdominal distention, tachycardia unchanged); +bowel function; KUB shows no obstruction; pancreatitis resolved -started on liquid diet adv as luis -pain management 2. Sepsis with lactic acidosis: ? source; off pressors currently; improving -supportive -hannon culture 3. Pancreatitis: resolved -as above 4. ARF: increasing uop today, cr much improved -judicious fluids -avoid nephrotoxic meds -poss HD per renal 5. Uncontrolled Diabetes: blood sugar labile -optimize sugar control 6. Constipation: pt w bm- abdomen softer improved pain -optimize bowel regimen 8. Electrolyte imbalance -optimize lytes Thank you. Patient seen and examined in collaboration with Dr. Jerome Marie. Problems: Subjective 24 Hr Interval Summary Less abdominal pain. +bowel function (bm and flatus) overnight per nursing staff. Tolerating diet so far. Confused and pulled lines today. No fevers, chills, sob, congested cough, n/v/d/dysuria. +uop. Off pressors. Exam/Review of Systems Vital Signs Vitals Vital Signs Date Time Temp Pulse Resp B/P Pulse Ox O2 Delivery O2 Flow Rate FiO2 05/06/17 16:00 112 05/06/17 14:00 20 148/93 98 Nasal Cannula 3.0 05/06/17 12:00 98.5 05/04/17 18:32 40 Intake and Output 05/05/17 05/05/17 05/06/17 15:00 23:00 07:00 Intake Total 247.5 ml 930 ml 920 ml Output Total 1300 ml 915 ml 800 ml Balance -1052.5 ml 15 ml 120 ml Exam Free Text/Dictation Constitutional: alert, no distress, oriented Psych: min anxiety Head: atraumatic, normocephalic, other (left head wound (shunt) with scant clear drainage) Eyes: nl lids, nl sclera ENMT: mucosa pink and moist, nl nasal mucosa & septum Neck: non-tender Respiratory: diminished breath sounds; comfortable on nc Cardiovascular: other (tachycardic- unchanged from yesterday) ST Gastrointestinal: softer, improved distention, non tender, umbilical hernia, no skin discoloration, +bowel sounds No rebound or guarding Musculoskeletal: other: r aka, stump clean Neurological: nl mental status, nl speech Results Result Diagram: 05/06/17 0430 05/06/17 0444 JEB LIRIANO NP May 06, 2017 17:05
--- NOTE | 2017-05-06 17:33 | CONS ---
Date/Time of Note Date/Time of Note DATE: 05/06/17 TIME: 17:31 Consult Date/Type/Reason Admit Date/Time May 03, 2017 at 12:49 Initial Consult Date 05/03/17 Type of Consultation: cardiology Ordering Provider: BRYAN MINOR DO Subjective CARDIOLOGY FOLLOW UP NOTE/ Critical care note: S: d/w staff and rhythm was reviewed. pt remains in sinus tachycardia but HR has improved and pt is off of neosynephrine drip and infact now he is hypertensive he has less abdominal pain. he denies any cp or sob to me. he is still in ICU and off of neosynephrine drip O: General: in no distress HEENT: NC/AT. pupils are equal. round. NECK: NO JVD. no stridor. CV: tachycardic. . systolic murmur; no gallop or rubs. PULM: no wheezing or rhonchi. GI: mild tenderness. no rebound. Extremity: s/p R LE amputation. neuro: awake and alert, OX3. with right sided weakness Psych: calm and pleasant rectal: deferred : normal male ECHO Personally reviewed: 1. Hyperdynamic left ventricular systolic function. Normal left ventricular cavity size. Mild concentric left ventricular hypertrophy. Ejection fraction is visually estimated at 70 %. Abnormal Diastolic Function. 2. The left atrium is normal in size. 3. Mild mitral leaflet calcification. Mild mitral annular calcification. Trace mitral regurgitation. 4. No significant aortic stenosis or insufficiency. Aortic cusps appear mildly calcified. Non coronary cusp appears moderately calcified. 5. Normal appearance of the tricuspid valve. Estimated peak PA systolic pressure 56 mmHg. There is mild tricuspid regurgitation. 6. The IVC is not well visualized. Objective Vital Signs Date Time Temp Pulse Resp B/P Pulse Ox O2 Delivery O2 Flow Rate FiO2 05/06/17 16:00 112 05/06/17 14:00 20 148/93 98 Nasal Cannula 3.0 05/06/17 12:00 98.5 05/04/17 18:32 40 Intake and Output 05/05/17 05/05/17 05/06/17 15:00 23:00 07:00 Intake Total 247.5 ml 930 ml 920 ml Output Total 1300 ml 915 ml 800 ml Balance -1052.5 ml 15 ml 120 ml Results/Medications Result Diagram: 05/06/17 0430 05/06/17 0444 Results 24 hrs Laboratory Tests Test 05/05/17 18:31 05/05/17 20:36 05/06/17 00:35 05/06/17 04:30 Bedside Glucose 135 107 83 White Blood Count 12.7 H Red Blood Count 3.38 L Hemoglobin 10.6 L Hematocrit 30.9 L Mean Corpuscular Volume 91.4 Mean Corpuscular Hemoglobin 31.4 Mean Corpuscular Hemoglobin Concent 34.3 Red Cell Distribution Width 14.1 Platelet Count 79 L Mean Platelet Volume 10.5 H Neutrophils % 86.2 H Lymphocytes % 4.3 L Monocytes % 6.1 Eosinophils % 0.7 Basophils % 0.2 Nucleated Red Blood Cells % 0.0 Neutrophils # 10.9 H Lymphocytes # 0.6 L Monocytes # 0.8 Eosinophils # 0.1 Basophils # 0.0 Nucleated Red Blood Cells # 0.0 Phosphorus Level 6.3 H Magnesium Level 1.8 Test 05/06/17 04:44 05/06/17 04:50 05/06/17 08:10 05/06/17 11:26 Sodium Level 143 Potassium Level 3.9 Chloride Level 103 Carbon Dioxide Level 29 Anion Gap 15 Blood Urea Nitrogen 79 H Creatinine 5.28 H Glucose Level 128 Calcium Level 8.6 Total Bilirubin 0.6 Direct Bilirubin 0.00 Indirect Bilirubin 0.6 Aspartate Amino Transf (AST/SGOT) 24 Alanine Aminotransferase (ALT/SGPT) 38 Alkaline Phosphatase 128 H Total Protein 5.7 L Albumin 2.8 L Globulin 2.90 Albumin/Globulin Ratio 0.96 Lipase 52 Bedside Glucose 119 138 166 Test 05/06/17 17:04 Bedside Glucose 231 H Medications Current Medications Ondansetron HCl (Zofran Inj) 4 mg Q6H PRN IV NAUSEA AND/OR VOMITING Last administered on 05/03/17 08:47; Admin Dose 4 MG; Start 05/02/17 at 19:00 Lorazepam 0.5 mg 0.5 mg Q2H PRN IV ANXIETY Last administered on 05/06/17 16: 03; Admin Dose 0.5 MG; Start 05/02/17 at 19:00 Meropenem/Sodium Chloride (Merrem 1 Gm/50 ml (Pmx)) 50 ml @ 100 mls/hr Q24H IVPB Last administered on 05/05/17 20:37; Admin Dose 100 MLS/HR; Start at 20:00 Hydromorphone HCl (Dilaudid) 1 mg Q4H PRN IV PAIN LEVEL 7-10 Last administered on 05/05/17 22:57; Admin Dose 1 MG; Start 05/02/17 at 23:00 Miscellaneous Information 1 ea NOTE XX ; Start 05/03/17 at 14:00 Glucose (Glutose) 15 gm Q15M PRN PO DECREASED GLUCOSE; Start 05/03/17 at 14:00 Glucose (Glutose) 22.5 gm Q15M PRN PO DECREASED GLUCOSE; Start 05/03/17 at 14: 00 Dextrose (D50w Syringe) 25 ml Q15M PRN IV DECREASED GLUCOSE; Start 05/03/17 at 14:00 Dextrose (D50w Syringe) 50 ml Q15M PRN IV DECREASED GLUCOSE; Start 05/03/17 at 14:00 Glucagon (Glucagen) 1 mg Q15M PRN IM DECREASED GLUCOSE; Start 05/03/17 at 14:00 Glucose (Glutose) 15 gm Q15M PRN BUCCAL DECREASED GLUCOSE; Start 05/03/17 at 14 :00 Bisacodyl 10 mg 10 mg DAILY PRN [place] CONSTIPATION Last administered on 05/04/17 17:20; Admin Dose 10 MG; Start 05/03/17 at 17:00 Phenylephrine HCl/ Dextrose (Dean-Syneph/D5W) 250 ml @ 0 mls/hr TITRATE IV Last administered on 05/04/17 17:15; Admin Dose 20 MLS/HR; Start 05/03/17 at 17:00 Miscellaneous Information This patient bustillo... PRN PRN XX WOUND CARE; Start 05/03 at 19:00 Vancomycin HCl 250 ml @ 125 mls/hr Q96H IVPB Last administered on 05/04/17 09 :42; Admin Dose 125 MLS/HR; Start 05/04/17 at 10:00 Sodium Chloride (NS) 1,000 ml @ 80 mls/hr [id number] IV Last administered on 13:55; Admin Dose 80 MLS/HR; Start 05/05/17 at 12:30 Metoprolol Tartrate (Lopressor) 25 mg BID PO Last administered on 05/06/17 10 :19; Admin Dose 25 MG; Start 05/06/17 at 10:00 Insulin Glargine (Lantus) 10 unit DAILY SC ; Start 05/07/17 at 09:00 Lorazepam (Ativan) 0.5 mg BID PO Last administered on 05/06/17t 10:19; Admin Dose 0.5 MG; Start 05/06/17 at 10:00 Olanzapine (Zyprexa) 2.5 mg BID PO ; Start 05/06/17 at 21:00 Pantoprazole (Protonix Tab) 40 mg DAILY@06 PO ; Start 05/07/17 at 06:00 Assessment/Plan Chief Complaint/Hosp Course 1. Sinus tachycardia secondary to below. 2. Severe sepsis and septic shock. 3. Severe pancreatitis. 4. Diabetes. 7. Severe metabolic acidosis. 8. HX of Hypertension, currently in shock and hypotensive. 9. History of dyslipidemia. 10. History of RLE amputation. 11. History of craniotomy and meningioma, status post craniotomy. 12. History of seizure disorder. 13. JESUSITA on CKD. 14. hypo Na. 15. mildly abnormal trop due to above 16. HTN RECOMMENDATIONS: Antibiotic is managed as per infectious disease and Dr. Vincent. echo reviewed and did not show any evidence of LV dysfunction or effusion to explain the pt's tachycardia Electrolytes will be checked periodically and adjusted. cont Insulin. inc metoprlol q 6 hour f.u with renal consultants rec. currently urine output has improved. THANK YOU CARMEN MELO MD [facility]. Problems: CARMEN MELO MD May 06, 2017 17:33
[2017-05-06] MEDS: METOPROLOL 25 MG TAB PO SCH ×2 (18:11→23:12)
[2017-05-06] MEDS: MEROPENEM 1 GM/50ML(PMX) 50 ML IVPB SCH (20:30)
[2017-05-06] MEDS: OLANZAPINE 2.5 MG TAB PO SCH ×2 (21:01→23:13)
[2017-05-07] VITALS (24 sets, daily range): BP systolic 117–193; BP diastolic 63–124; PULSE 89–131; RESP 18–41
[2017-05-07] MEDS: SOD CHLORIDE 0.9% 1,000 ML IV SCH ×2 (03:00→15:59)
[2017-05-07] MEDS: PANTOPRAZOLE (EC) 40 MG TAB PO SCH (05:12)
[2017-05-07] MEDS: METOPROLOL 25 MG TAB PO SCH ×4 (05:12→23:02)
[2017-05-07 05:55] LABS: ABNORMAL IP MESSAGE 1; HEMATOCRIT 32.2 % (42.0-52.0); HEMOGLOBIN 10.8 g/dl (14.0-18.0); MEAN CORPUSCULAR HEMOGLOBIN 30.9 pg (29.0-33.0); MEAN CORPUSCULAR HGB CONC 33.5 g/dl (32.0-37.0); MEAN CORPUSCULAR VOLUME 92.3 fl (82.0-101.0); NUCLEATED RED BLOOD CELLS% 0.1 /100WBC (0.0-0.0); PLATELET COUNT 131 10^3/UL (140-415); POSITIVE DIFF @See below; RED BLOOD COUNT 3.49 10^6/ul (4.70-6.10); RED CELL DISTRIBUTION WIDTH 14.1 % (11.5-14.5); WHITE BLOOD COUNT 18.6 10^3/ul (4.8-10.8)
[2017-05-07 06:25] LABS: MAGNESIUM 1.8 mg/dl (1.7-2.5); PHOSPHORUS 4.8 mg/dl (2.5-4.9)
[2017-05-07 06:42] LABS: EOSINOPHILS % (M) 2 % (0-7); METAMYELOCYTES %M 3 % (0-0); MONOCYTES % (M) 8 % (0-11); MYELOCYTES % (M) 1 % (0-0); PLATELET ESTIMATE NORMAL; POLYCHROMASIA 1+ (0-0)
[2017-05-07 06:44] LABS: ALBUMIN/GLOBULIN RATIO 1.03; BILIRUBIN,INDIRECT 0.7 mg/dl (0-1.1); BILIRUBIN,TOTAL 0.7 mg/dl (0.2-1.3); CALCIUM 8.6 mg/dl (8.4-10.2); CREATININE 3.9 mg/dl (0.61-1.24); POTASSIUM 3.9 mmol/L (3.5-5.1); TOTAL PROTEIN 5.9 g/dl (6.1-8.1)
[2017-05-07] MEDS: INSULIN ASPART [NOVOLOG] 3 ML PEN SC SCH ×4 (06:53→20:04)
--- NOTE | 2017-05-07 08:26 | CONS ---
Date/Time of Note Date/Time of Note DATE: 05/07/17 TIME: 08:25 Consult Date/Type/Reason Admit Date/Time May 03, 2017 at 12:49 Initial Consult Date 05/03/17 Type of Consultation: cardiology Ordering Provider: BRYAN MINOR DO Subjective CARDIOLOGY FOLLOW UP NOTE/ Critical care note: S: d/w staff and rhythm was reviewed. pt remains in sinus tachycardia and he is hypertensive he has less abdominal pain. he denies any cp or sob to me. he is still in ICU and off of neosynephrine drip O: General: in no distress HEENT: NC/AT. pupils are equal. round. NECK: NO JVD. no stridor. CV: tachycardic. . systolic murmur; no gallop or rubs. PULM: no wheezing or rhonchi. GI: mild tenderness. no rebound. Extremity: s/p R LE amputation. neuro: awake and alert, OX3. with right sided weakness Psych: calm and pleasant rectal: deferred : normal male ECHO Personally reviewed: 1. Hyperdynamic left ventricular systolic function. Normal left ventricular cavity size. Mild concentric left ventricular hypertrophy. Ejection fraction is visually estimated at 70 %. Abnormal Diastolic Function. 2. The left atrium is normal in size. 3. Mild mitral leaflet calcification. Mild mitral annular calcification. Trace mitral regurgitation. 4. No significant aortic stenosis or insufficiency. Aortic cusps appear mildly calcified. Non coronary cusp appears moderately calcified. 5. Normal appearance of the tricuspid valve. Estimated peak PA systolic pressure 56 mmHg. There is mild tricuspid regurgitation. 6. The IVC is not well visualized. Objective Vital Signs Date Time Temp Pulse Resp B/P Pulse Ox O2 Delivery O2 Flow Rate FiO2 05/07/17 06:00 120 37 156/93 95 Nasal Cannula 3.0 05/07/17 04:00 99.5 05/04/17 18:32 40 Intake and Output 05/06/17 05/06/17 05/07/17 15:00 23:00 07:00 Intake Total 1600 ml 810 ml 560 ml Output Total 1090 ml 995 ml 835 ml Balance 510 ml -185 ml -275 ml Results/Medications Result Diagram: 05/07/17 0512 05/07/17 0512 Results 24 hrs Laboratory Tests Test 05/06/17 11:26 05/06/17 17:04 05/06/17 20:59 05/07/17 05:12 Bedside Glucose 166 231 H 176 White Blood Count 18.6 #H Red Blood Count 3.49 L Hemoglobin 10.8 L Hematocrit 32.2 L Mean Corpuscular Volume 92.3 Mean Corpuscular Hemoglobin 30.9 Mean Corpuscular Hemoglobin Concent 33.5 Red Cell Distribution Width 14.1 Platelet Count 131 #L Mean Platelet Volume 11.0 H Neutrophils % Segmented Neutrophils % (Manual) 76 Band Neutrophils % (Manual) 7 H Lymphocytes % Lymphocytes % (Manual) 3 L Monocytes % Monocytes % (Manual) 8 Eosinophils % Eosinophils % (Manual) 2 Basophils % Metamyelocytes % (manual) 3 H Myelocytes % (Manual) 1 H Nucleated Red Blood Cells % 0.1 H Neutrophils # Neutrophils # (Manual) 14.4 H Band Neutrophils # 1.3 H Absolute Lymphocytes (Manual) 0.5 L Lymphocytes # Monocytes # Absolute Monocytes (Manual) 1.4 H Eosinophils # Basophils # Metamyelocytes # 0.5 H Myelocytes # 0.1 H Nucleated Red Blood Cells # Platelet Estimate NORMAL Polychromasia 1+ Sodium Level 142 Potassium Level 3.9 Chloride Level 104 Carbon Dioxide Level 21 Anion Gap 21 H Blood Urea Nitrogen 68 H Creatinine 3.90 #H Glucose Level 238 #H Calcium Level 8.6 Phosphorus Level 4.8 Magnesium Level 1.8 Total Bilirubin 0.7 Direct Bilirubin 0.00 Indirect Bilirubin 0.7 Aspartate Amino Transf (AST/SGOT) 19 Alanine Aminotransferase (ALT/SGPT) 32 Alkaline Phosphatase 143 H Total Protein 5.9 L Albumin 3.0 L Globulin 2.90 Albumin/Globulin Ratio 1.03 Lipase 44 Test 05/07/17 06:50 Bedside Glucose 235 H Medications Current Medications Ondansetron HCl (Zofran Inj) 4 mg Q6H PRN IV NAUSEA AND/OR VOMITING Last administered on 05/03/17 08:47; Admin Dose 4 MG; Start 05/02/17 at 19:00 Lorazepam 0.5 mg 0.5 mg Q2H PRN IV ANXIETY Last administered on 05/06/17 16: 03; Admin Dose 0.5 MG; Start 05/02/17 at 19:00 Meropenem/Sodium Chloride (Merrem 1 Gm/50 ml (Pmx)) 50 ml @ 100 mls/hr Q24H IVPB Last administered on 05/06/17 20:30; Admin Dose 100 MLS/HR; Start at 20:00 Hydromorphone HCl (Dilaudid) 1 mg Q4H PRN IV PAIN LEVEL 7-10 Last administered on 05/05/17 22:57; Admin Dose 1 MG; Start 05/02/17 at 23:00 Miscellaneous Information 1 ea NOTE XX ; Start 05/03/17 at 14:00 Glucose (Glutose) 15 gm Q15M PRN PO DECREASED GLUCOSE; Start 05/03/17 at 14:00 Glucose (Glutose) 22.5 gm Q15M PRN PO DECREASED GLUCOSE; Start 05/03/17 at 14: 00 Dextrose (D50w Syringe) 25 ml Q15M PRN IV DECREASED GLUCOSE; Start 05/03/17 at 14:00 Dextrose (D50w Syringe) 50 ml Q15M PRN IV DECREASED GLUCOSE; Start 05/03/17 at 14:00 Glucagon (Glucagen) 1 mg Q15M PRN IM DECREASED GLUCOSE; Start 05/03/17 at 14:00 Glucose (Glutose) 15 gm Q15M PRN BUCCAL DECREASED GLUCOSE; Start 05/03/17 at 14 :00 Bisacodyl 10 mg 10 mg DAILY PRN [place] CONSTIPATION Last administered on 05/04/17 17:20; Admin Dose 10 MG; Start 05/03/17 at 17:00 Phenylephrine HCl/ Dextrose (Dean-Syneph/D5W) 250 ml @ 0 mls/hr TITRATE IV Last administered on 05/04/17 17:15; Admin Dose 20 MLS/HR; Start 05/03/17 at 17:00 Miscellaneous Information This patient bustillo... PRN PRN XX WOUND CARE; Start 05/03 at 19:00 Vancomycin HCl 250 ml @ 125 mls/hr Q96H IVPB Last administered on 05/04/17 09 :42; Admin Dose 125 MLS/HR; Start 05/04/17 at 10:00 Sodium Chloride (NS) 1,000 ml @ 80 mls/hr [id number] IV Last administered on 03:00; Admin Dose 80 MLS/HR; Start 05/05/17 at 12:30 Insulin Glargine (Lantus) 10 unit DAILY SC ; Start 05/07/17 at 09:00 Lorazepam (Ativan) 0.5 mg BID PO Last administered on 05/06/17 10:19; Admin Dose 0.5 MG; Start 05/06/17 at 10:00 Olanzapine (Zyprexa) 2.5 mg BID PO Last administered on 05/06/17 23:13; Admin Dose 2.5 MG; Start 05/06/17 at 21:00 Pantoprazole (Protonix Tab) 40 mg DAILY@06 PO Last administered on 05/07/17 05:12; Admin Dose 40 MG; Start 05/07/17 at 06:00 Metoprolol Tartrate (Lopressor) 25 mg Q6 PO Last administered on 05/07/17 05: 12; Admin Dose 25 MG; Start 05/06/17 at 18:00 Assessment/Plan Chief Complaint/Hosp Course 1. Sinus tachycardia secondary to below. 2. Severe sepsis and septic shock. 3. Severe pancreatitis. 4. Diabetes. 7. Severe metabolic acidosis. 8. HX of Hypertension, currently in shock and hypotensive. 9. History of dyslipidemia. 10. History of RLE amputation. 11. History of craniotomy and meningioma, status post craniotomy. 12. History of seizure disorder. 13. JESUSITA on CKD. 14. hypo Na. 15. mildly abnormal trop due to above 16. HTN RECOMMENDATIONS: Antibiotic is managed as per infectious disease and Dr. Vincent. echo reviewed and did not show any evidence of LV dysfunction or effusion to explain the pt's tachycardia Electrolytes will be checked periodically and adjusted. cont Insulin. inc metoprlol f.u with renal consultants rec. currently urine output has improved. THANK YOU CARMEN MELO MD [facility]. Problems: CARMEN MELO MD May 07, 2017 08:26
[2017-05-07] MEDS: LORAZEPAM 0.5 MG TAB PO SCH (09:00)
[2017-05-07] MEDS: INSULIN GLARGINE [LANtus] 3 ML PEN SC SCH (09:09)
[2017-05-07 09:39] LABS: AADO2 Arterial 109.8 mmHg (7.0-24.0); Allen Test ACCEPTAB; Arterial Base Excess -1.6 mmol/L (-3.0-3); Arterial COHb 0.3 % (0.0-3.0); Arterial Fraction of Oxyhgb 93.8 % (93.0-99.0); Arterial HCO3 20.9 mmol/L (22.0-26.0); Arterial MetHb 0.3 % (0.0-1.5); Arterial Total Hemglobin 11.6 g/dl (12.0-18.0); MODE NASAL CANNULA
--- NOTE | 2017-05-07 10:01 | RADRPT ---
PROCEDURE: XR Chest. CLINICAL INDICATION: Shortness of breath TECHNIQUE: Single portable view of the chest was obtained COMPARISON: May 04, 2017 FINDINGS: The trachea is midline. The cardiac silhouette is enlarged and pulmonary vascularity are within norm al limits. There is a patchy left lower lobe opacification. The costophrenic angles are sharp. IMPRESSION: 1. Cardiomegaly . 2. Patchy left lower lobe opacification; pneumonia versus atelectasis. Correlate clinically. 3. Status post removal of previously noted right-sided PICC line. RPTAT: AARR Physician Robb Date Time Electronically viewed and signed by Physician Robb on 05/07/2017 10:01 JL/
--- NOTE | 2017-05-07 11:08 | PN ---
Date/Time of Note Date/Time of Note DATE: 05/07/17 TIME: 11:07 Assessment/Plan VTE Prophylaxis VTE Prophylaxis Intervention: other Lines/Catheters IV Catheter Type (from Nrsg): Peripheral IV Urinary Cath still in place: Yes Reason Cath still needed: urinary retention Assessment/Plan Chief Complaint/Hosp Course HISTORY OF PRESENT ILLNESS: Thank you for this referral. History was obtained from the patient partially, from extensive review of the old chart, discussion with staff. This is an unfortunate 67-year-old gentleman with multiple complicated medical history who was brought in from a intermediate facility due to constipation and abdominal discomfort. Workup has shown severe sepsis, shock , and severe pancreatitis. The patient has been tachycardic. Heart rate has been as high as 160. He complains of diffuse abdominal pain. No chest pain or pressure. Denies any shortness of breath at this point. He has arf with baselin creatinine of 1.3 which is improving continues to have good uop Imaging studies showed renal mass but no obstruction He is currently on ivf with stable bp seen in ICU d/w pulm arf is slightly improved. His UOP is increasing no nausea, vomiting, new rash, hematuria, melena, diaphoresis or fever cxr reviewed PHYSICAL EXAMINATION: HEENT: Normocephalic, atraumatic. No acute respiratory distress. Eyes: Pupils are equal. CARDIOVASCULAR: Tachycardic. PULMONARY: With no wheeze anteriorly. GASTROINTESTINAL: Distended, positive tender to palpation. Very diffuse tenderness and mild guarding, no rebound. EXTREMITIES: Positive right lower extremity BKA. NEUROLOGIC: He is awake, responds appropriately, with one-sided weakness. PSYCHIATRIC: Appears to be calm. ASSESSMENT AND PLAN: 1. ARF due to ATN. his uop is increasing and serum creatinine is slightly lower. imaging studies were reviewed. continue IVF and pressors. keep MAP > 60. will hold off on HD for now and reevaluate in am 2. Severe sepsis and septic shock. on abx and pressors 3. Severe pancreatitis. 4. Diabetes. 7. Severe metabolic acidosis. improving. ABG reviewed 8. Hypertension, currently in shock and hypotensive. 9. History of dyslipidemia. 10. History of below-knee amputation. 11. History of craniotomy and meningioma, status post craniotomy. 12. History of seizure disorder. Problems: Exam/Review of Systems Vital Signs Vitals Vital Signs Date Time Temp Pulse Resp B/P Pulse Ox O2 Delivery O2 Flow Rate FiO2 05/07/17 10:00 89 18 167/92 96 Nasal Cannula 3.0 05/07/17 08:00 99.1 05/04/17 18:32 40 Intake and Output 05/06/17 05/06/17 05/07/17 15:00 23:00 07:00 Intake Total 1600 ml 810 ml 560 ml Output Total 1090 ml 995 ml 835 ml Balance 510 ml -185 ml -275 ml Results Result Diagram: 05/07/1712 05/07/17511 Results 24 hrs Laboratory Tests Test 05/06/17 11:26 05/06/17 17:04 05/06/17 20:59 05/07/17 05:12 Bedside Glucose 166 231 H 176 White Blood Count 18.6 #H Red Blood Count 3.49 L Hemoglobin 10.8 L Hematocrit 32.2 L Mean Corpuscular Volume 92.3 Mean Corpuscular Hemoglobin 30.9 Mean Corpuscular Hemoglobin Concent 33.5 Red Cell Distribution Width 14.1 Platelet Count 131 #L Mean Platelet Volume 11.0 H Neutrophils % Segmented Neutrophils % (Manual) 76 Band Neutrophils % (Manual) 7 H Lymphocytes % Lymphocytes % (Manual) 3 L Monocytes % Monocytes % (Manual) 8 Eosinophils % Eosinophils % (Manual) 2 Basophils % Metamyelocytes % (manual) 3 H Myelocytes % (Manual) 1 H Nucleated Red Blood Cells % 0.1 H Neutrophils # Neutrophils # (Manual) 14.4 H Band Neutrophils # 1.3 H Absolute Lymphocytes (Manual) 0.5 L Lymphocytes # Monocytes # Absolute Monocytes (Manual) 1.4 H Eosinophils # Basophils # Metamyelocytes # 0.5 H Myelocytes # 0.1 H Nucleated Red Blood Cells # Platelet Estimate NORMAL Polychromasia 1+ Sodium Level 142 Potassium Level 3.9 Chloride Level 104 Carbon Dioxide Level 21 Anion Gap 21 H Blood Urea Nitrogen 68 H Creatinine 3.90 #H Glucose Level 238 #H Calcium Level 8.6 Phosphorus Level 4.8 Magnesium Level 1.8 Total Bilirubin 0.7 Direct Bilirubin 0.00 Indirect Bilirubin 0.7 Aspartate Amino Transf (AST/SGOT) 19 Alanine Aminotransferase (ALT/SGPT) 32 Alkaline Phosphatase 143 H Total Protein 5.9 L Albumin 3.0 L Globulin 2.90 Albumin/Globulin Ratio 1.03 Lipase 44 Test 05/07/17 06:50 05/07/17 09:08 05/07/17 09:17 Bedside Glucose 235 H 237 H Blood Gas Specimen Source Blood arterial Arterial Blood Date Drawn 05/07/2017 9:30:42 AM Arterial Blood pH (Temp corrected) 7.482 H Arterial Blood pCO2 (Temp correct) 28.6 L Arterial Blood pO2 (Temp corrected) 70.5 L Arterial Blood HCO3 20.9 L Arterial Blood Base Excess -1.6 Arterial Blood Oxygen Saturation 94.4 L Marcos Test ACCEPTAB Arterial Blood Gas Puncture Site Right Radial Arterial Blood Carboxyhemoglobin 0.3 Arterial Blood Methemoglobin 0.3 Blood Gas A-a O2 Differential 109.8 H Oxyhemoglobin Percent 93.8 Total Hemoglobin 11.6 L Blood Gas Temperature 37.0 Blood Gas Modality NASAL CANNULA FiO2 30.0 Blood Gas Notified Whom JLD Blood Gas Notified Time 05/07/2017 9:39:17 AM Medications Medications Current Medications Ondansetron HCl (Zofran Inj) 4 mg Q6H PRN IV NAUSEA AND/OR VOMITING Last administered on 05/03/17 08:47; Admin Dose 4 MG; Start 05/02/17 at 19:00 Lorazepam 0.5 mg 0.5 mg Q2H PRN IV ANXIETY Last administered on 05/06/17 16: 03; Admin Dose 0.5 MG; Start 05/02/17 at 19:00 Meropenem/Sodium Chloride (Merrem 1 Gm/50 ml (Pmx)) 50 ml @ 100 mls/hr Q24H IVPB Last administered on 05/06/17 20:30; Admin Dose 100 MLS/HR; Start at 20:00 Hydromorphone HCl (Dilaudid) 1 mg Q4H PRN IV PAIN LEVEL 7-10 Last administered on 05/05/17 22:57; Admin Dose 1 MG; Start 05/02/17 at 23:00 Miscellaneous Information 1 ea NOTE XX ; Start 05/03/17 at 14:00 Glucose (Glutose) 15 gm Q15M PRN PO DECREASED GLUCOSE; Start 05/03/17 at 14:00 Glucose (Glutose) 22.5 gm Q15M PRN PO DECREASED GLUCOSE; Start 05/03/17 at 14: 00 Dextrose (D50w Syringe) 25 ml Q15M PRN IV DECREASED GLUCOSE; Start 05/03/17 at 14:00 Dextrose (D50w Syringe) 50 ml Q15M PRN IV DECREASED GLUCOSE; Start 05/03/17 at 14:00 Glucagon (Glucagen) 1 mg Q15M PRN IM DECREASED GLUCOSE; Start 05/03/17 at 14:00 Glucose (Glutose) 15 gm Q15M PRN BUCCAL DECREASED GLUCOSE; Start 05/03/17 at 14 :00 Bisacodyl 10 mg 10 mg DAILY PRN [place] CONSTIPATION Last administered on 05/04/17 17:20; Admin Dose 10 MG; Start 05/03/17 at 17:00 Phenylephrine HCl/ Dextrose (Dean-Syneph/D5W) 250 ml @ 0 mls/hr TITRATE IV Last administered on 05/04/17 17:15; Admin Dose 20 MLS/HR; Start 05/03/17 at 17:00 Miscellaneous Information This patient bustillo... PRN PRN XX WOUND CARE; Start 05/03 at 19:00 Vancomycin HCl 250 ml @ 125 mls/hr Q96H IVPB Last administered on 05/04/17 09 :42; Admin Dose 125 MLS/HR; Start 05/04/17 at 10:00 Sodium Chloride (NS) 1,000 ml @ 80 mls/hr [id number] IV Last administered on 03:00; Admin Dose 80 MLS/HR; Start 05/05/17 at 12:30 Insulin Glargine (Lantus) 10 unit DAILY SC Last administered on 05/07/17 09: 09; Admin Dose 10 UNIT; Start 05/07/17 at 09:00 Lorazepam (Ativan) 0.5 mg BID PO Last administered on 05/06/17 10:19; Admin Dose 0.5 MG; Start 05/06/17 at 10:00 Olanzapine (Zyprexa) 2.5 mg BID PO Last administered on 05/06/17 23:13; Admin Dose 2.5 MG; Start 05/06/17 at 21:00 Pantoprazole (Protonix Tab) 40 mg DAILY@06 PO Last administered on 05/07/17 05:12; Admin Dose 40 MG; Start 05/07/17 at 06:00 Metoprolol Tartrate (Lopressor) 50 mg Q6 PO ; Start 05/07/17 at 12:00 ESEQUIEL CORONA DO May 07, 2017 11:08
[2017-05-07] MEDS: OLANZAPINE 2.5 MG TAB PO SCH ×2 (11:12→20:04)
--- NOTE | 2017-05-07 11:24 | PN ---
Date/Time of Note Date/Time of Note DATE: 05/07/17 TIME: 11:16 Assessment/Plan Lines/Catheters IV Catheter Type (from [facility]): Peripheral IV High in Place (from Nrs): Yes Assessment/Plan Chief Complaint/Hosp Course 1. Abdominal pain: CT with ?sbo (doubt) vs. ileus and pancreatitis; concern for abdominal compartment syndrome: (improved abdominal distention, tachycardia unchanged); +bowel function; KUB shows no obstruction; pancreatitis resolved -started on liquid diet adv as luis -pain management 2. Sepsis with lactic acidosis: ? source; off pressors currently; improving -supportive -hannon culture- head shunt drainage sent for culture 3. Pancreatitis: resolved -as above 4. ARF: increasing uop today, cr much improved -judicious fluids -avoid nephrotoxic meds -poss HD per renal 5. Uncontrolled Diabetes: blood sugar labile -optimize sugar control 6. Constipation: pt w bm- abdomen softer improved pain -optimize bowel regimen 8. Electrolyte imbalance -optimize lytes Thank you. Patient seen and examined in collaboration with Dr. Jerome Marie. Problems: Subjective 24 Hr Interval Summary Continues to be tachycardic. UOP and creatinine improved. Leukocytosis worsened. Feels ok. +bowel function. No fevers, chills, sob, congested cough, cp , palpitations,sz. Tolerating diet. Exam/Review of Systems Vital Signs Vitals Vital Signs Date Time Temp Pulse Resp B/P Pulse Ox O2 Delivery O2 Flow Rate FiO2 05/07/17 10:00 89 18 167/92 96 Nasal Cannula 3.0 05/07/17 08:00 99.1 05/04/17 18:32 40 Intake and Output 05/06/17 05/06/17 05/07/17 15:00 23:00 07:00 Intake Total 1600 ml 810 ml 560 ml Output Total 1090 ml 995 ml 835 ml Balance 510 ml -185 ml -275 ml Exam Free Text/Dictation Constitutional: alert, no distress, oriented Psych: min anxiety Head: atraumatic, normocephalic, other (left head wound (shunt) with scant yellow drainage) Eyes: nl lids, nl sclera ENMT: mucosa pink and moist, nl nasal mucosa & septum Neck: non-tender Respiratory: diminished breath sounds; comfortable on nc Cardiovascular: other (tachycardic- unchanged from yesterday) ST Gastrointestinal: softer, improved distention, non tender, umbilical hernia, no skin discoloration, +bowel sounds No rebound or guarding Musculoskeletal: other: r aka, stump clean Neurological: nl mental status, nl speech Results Result Diagram: 05/07/1751105/07/17511 JEB LIRIANO NP May 07, 2017 11:24
--- NOTE | 2017-05-07 11:25 | CONS ---
Date/Time of Note Date/Time of Note DATE: 05/07/17 TIME: 11:19 Assessment/Plan Assessment/Plan Additional Assessment/Plan Chest x-ray was reviewed from today which is essentially unremarkable. ABGs showing mild hyperventilation. Assessment and recommendations; 1. Patient admitted with sepsis. Source is unclear. 2. Acute pancreatitis. 3. History of chronic encephalopathy with an element of acute toxic metabolic component. Baseline mental status currently is unknown. 4. Acute renal insufficiency with improving serum creatinine. 5. Anemia and thrombocytopenia. However platelet count is improving. 6. Possibly some element of uremia. 7. Peripheral vascular disease. Status post right below-knee condition. 8. History of diabetes and hypertension. Patient currently quite hypertensive. Beta-jared dosing has been increased. Continue current supportive care. Prognosis is guarded. Patient may require intubation if mental status does not improve. Consultation Date/Type/Reason Admit Date/Time May 03, 2017 at 12:49 Initial Consult Date 05/03/17 Type of Consultation: Pulmonary/critical care Referring Provider: BRYAN MINOR DO 24 HR Interval Summary Free Text/Dictation Patient's condition remains tenuous at best. Remains agitated and uncooperative. General exam; elderly male, appearing occasionally agitated. Not responding to commands appropriately. Exam/Review of Systems Vital Signs Vitals Vital Signs Date Time Temp Pulse Resp B/P Pulse Ox O2 Delivery O2 Flow Rate FiO2 05/07/17 10:00 89 18 167/92 96 Nasal Cannula 3.0 05/07/17 08:00 99.1 05/04/17 18:32 40 Intake and Output 05/06/17 05/06/17 05/07/17 15:00 23:00 07:00 Intake Total 1600 ml 810 ml 560 ml Output Total 1090 ml 995 ml 835 ml Balance 510 ml -185 ml -275 ml Exam HEENT exam; supple neck, no JVD. No lymphadenopathy. Midline. Dressing applied over left parietal area. Pupils are equal and reactive to light. Patient has few remaining teeth in lower jaw. Chest examined; diminished but clear breath sounds. S1-S2 audible, no murmurs. Regular rhythm. Tachycardic. Abdomen exam; soft, protuberant. Bowel sounds are audible. No organomegaly. Extremity exam; 1+ pitting edema involving right upper extremity. 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 Results Result Diagram: 05/07/17 0512 05/07/17 0512 Results 24 hrs Laboratory Tests Test 05/06/17 11:26 05/06/17 17:04 05/06/17 20:59 05/07/17 05:12 Bedside Glucose 166 231 H 176 White Blood Count 18.6 #H Red Blood Count 3.49 L Hemoglobin 10.8 L Hematocrit 32.2 L Mean Corpuscular Volume 92.3 Mean Corpuscular Hemoglobin 30.9 Mean Corpuscular Hemoglobin Concent 33.5 Red Cell Distribution Width 14.1 Platelet Count 131 #L Mean Platelet Volume 11.0 H Neutrophils % Segmented Neutrophils % (Manual) 76 Band Neutrophils % (Manual) 7 H Lymphocytes % Lymphocytes % (Manual) 3 L Monocytes % Monocytes % (Manual) 8 Eosinophils % Eosinophils % (Manual) 2 Basophils % Metamyelocytes % (manual) 3 H Myelocytes % (Manual) 1 H Nucleated Red Blood Cells % 0.1 H Neutrophils # Neutrophils # (Manual) 14.4 H Band Neutrophils # 1.3 H Absolute Lymphocytes (Manual) 0.5 L Lymphocytes # Monocytes # Absolute Monocytes (Manual) 1.4 H Eosinophils # Basophils # Metamyelocytes # 0.5 H Myelocytes # 0.1 H Nucleated Red Blood Cells # Platelet Estimate NORMAL Polychromasia 1+ Sodium Level 142 Potassium Level 3.9 Chloride Level 104 Carbon Dioxide Level 21 Anion Gap 21 H Blood Urea Nitrogen 68 H Creatinine 3.90 #H Glucose Level 238 #H Calcium Level 8.6 Phosphorus Level 4.8 Magnesium Level 1.8 Total Bilirubin 0.7 Direct Bilirubin 0.00 Indirect Bilirubin 0.7 Aspartate Amino Transf (AST/SGOT) 19 Alanine Aminotransferase (ALT/SGPT) 32 Alkaline Phosphatase 143 H Total Protein 5.9 L Albumin 3.0 L Globulin 2.90 Albumin/Globulin Ratio 1.03 Lipase 44 Test 05/07/17 06:50 05/07/17 09:08 05/07/17 09:17 Bedside Glucose 235 H 237 H Blood Gas Specimen Source Blood arterial Arterial Blood Date Drawn 05/07/2017 9:30:42 AM Arterial Blood pH (Temp corrected) 7.482 H Arterial Blood pCO2 (Temp correct) 28.6 L Arterial Blood pO2 (Temp corrected) 70.5 L Arterial Blood HCO3 20.9 L Arterial Blood Base Excess -1.6 Arterial Blood Oxygen Saturation 94.4 L Marcos Test ACCEPTAB Arterial Blood Gas Puncture Site Right Radial Arterial Blood Carboxyhemoglobin 0.3 Arterial Blood Methemoglobin 0.3 Blood Gas A-a O2 Differential 109.8 H Oxyhemoglobin Percent 93.8 Total Hemoglobin 11.6 L Blood Gas Temperature 37.0 Blood Gas Modality NASAL CANNULA FiO2 30.0 Blood Gas Notified Whom JLD Blood Gas Notified Time 05/07/2017 9:39:17 AM Medications Medications Current Medications Ondansetron HCl (Zofran Inj) 4 mg Q6H PRN IV NAUSEA AND/OR VOMITING Last administered on 05/03/17 08:47; Admin Dose 4 MG; Start 05/02/17 at 19:00 Lorazepam 0.5 mg 0.5 mg Q2H PRN IV ANXIETY Last administered on 05/06/17 16: 03; Admin Dose 0.5 MG; Start 05/02/17 at 19:00 Meropenem/Sodium Chloride (Merrem 1 Gm/50 ml (Pmx)) 50 ml @ 100 mls/hr Q24H IVPB Last administered on 05/06/17 20:30; Admin Dose 100 MLS/HR; Start at 20:00 Hydromorphone HCl (Dilaudid) 1 mg Q4H PRN IV PAIN LEVEL 7-10 Last administered on 05/05/17 22:57; Admin Dose 1 MG; Start 05/02/17 at 23:00 Miscellaneous Information 1 ea NOTE XX ; Start 05/03/17 at 14:00 Glucose (Glutose) 15 gm Q15M PRN PO DECREASED GLUCOSE; Start 05/03/17 at 14:00 Glucose (Glutose) 22.5 gm Q15M PRN PO DECREASED GLUCOSE; Start 05/03/17 at 14: 00 Dextrose (D50w Syringe) 25 ml Q15M PRN IV DECREASED GLUCOSE; Start 05/03/17 at 14:00 Dextrose (D50w Syringe) 50 ml Q15M PRN IV DECREASED GLUCOSE; Start 05/03/17 at 14:00 Glucagon (Glucagen) 1 mg Q15M PRN IM DECREASED GLUCOSE; Start 05/03/17 at 14:00 Glucose (Glutose) 15 gm Q15M PRN BUCCAL DECREASED GLUCOSE; Start 05/03/17 at 14 :00 Bisacodyl 10 mg 10 mg DAILY PRN [place] CONSTIPATION Last administered on 05/04/17 17:20; Admin Dose 10 MG; Start 05/03/17 at 17:00 Phenylephrine HCl/ Dextrose (Dean-Syneph/D5W) 250 ml @ 0 mls/hr TITRATE IV Last administered on 05/04/17 17:15; Admin Dose 20 MLS/HR; Start 05/03/17 at 17:00 Miscellaneous Information This patient bustillo... PRN PRN XX WOUND CARE; Start 05/03 at 19:00 Vancomycin HCl 250 ml @ 125 mls/hr Q96H IVPB Last administered on 05/04/17 09 :42; Admin Dose 125 MLS/HR; Start 05/04/17 at 10:00 Sodium Chloride (NS) 1,000 ml @ 80 mls/hr [id number] IV Last administered on 03:00; Admin Dose 80 MLS/HR; Start 05/05/17 at 12:30 Insulin Glargine (Lantus) 10 unit DAILY SC Last administered on 05/07/17 09: 09; Admin Dose 10 UNIT; Start 05/07/17 at 09:00 Lorazepam (Ativan) 0.5 mg BID PO Last administered on 05/06/17 10:19; Admin Dose 0.5 MG; Start 05/06/17 at 10:00 Olanzapine (Zyprexa) 2.5 mg BID PO Last administered on 05/07/17 11:12; Admin Dose 2.5 MG; Start 05/06/17 at 21:00 Pantoprazole (Protonix Tab) 40 mg DAILY@06 PO Last administered on 05/07/17 05:12; Admin Dose 40 MG; Start 05/07/17 at 06:00 Metoprolol Tartrate (Lopressor) 50 mg Q6 PO Last administered on 05/07/17 11: 12; Admin Dose 50 MG; Start 05/07/17 at 12:00 SUSANNAH GUERRIER May 07, 2017 11:25
[2017-05-07 13:20] LABS: ADD UMIC YES; UR ASCORBIC ACID NEGATIVE (NEGATIVE); UR BILIRUBIN (Dip) NEGATIVE (NEGATIVE); UR BLOOD (Dip) 3+ mg/dL (NEGATIVE); UR BUDDING YEAST FEW /HPF (NONE SEEN); UR CLARITY CLEAR (CLEAR); UR COLOR YELLOW (YELLOW); UR GLUCOSE (Dip) 3+ mg/dL (NEGATIVE); UR KETONES (Dip) 1+ mg/dL (NEGATIVE); UR LEUKOCYTE ESTERASE (Dip) NEGATIVE Leu/ul (NEGATIVE); UR MUCUS FEW /HPF (NONE SEEN); UR NITRITE (Dip) NEGATIVE (NEGATIVE); UR RBC 73 /HPF (0-5); UR SPECIFIC GRAVITY (Dip) 1.009 (1.003-1.030); UR TOTAL PROTEIN (Dip) 2+ mg/dl (NEGATIVE); UR UROBILINOGEN (Dip) NEGATIVE (NEGATIVE)
--- NOTE | 2017-05-07 14:53 | PN ---
DATE: 05/07/2017 SUBJECTIVE: No acute events. The patient is more confused, also tachycardic and with mild hypoxemia. VITAL SIGNS: T-max 99.8, pulse 115, respirations 25, blood pressure 174/102, saturation 99% on 3 liters. LABORATORIES: WBC 18.6, hemoglobin and hematocrit 10.8 and 32.2, platelets 131 , bands 7. BUN 68, creatinine 3.90. MICROBIOLOGY: Cultures remain negative since admission. Nares swab negative for MRSA. DIAGNOSTICS: Chest x-ray this morning revealed patchy left lower lobe opacification, pneumonia versus atelectasis. ANTIMICROBIALS: The patient remains on: 1. Vancomycin. 2. Meropenem. PHYSICAL EXAMINATION: GENERAL: This is a chronically ill-appearing, elderly man who is awake, confused and in no distress. HEENT: Head atraumatic, normocephalic. Sclerae anicteric. Buccal mucosa dry. NECK: Supple. CHEST: Rise symmetrical. Breath sounds diminished to bases with scattered crackles. HEART: S1, S2, tachycardic. ABDOMEN: Distended, soft. Bowel tones hypoactive. EXTREMITIES: Without cyanosis, with trace edema. ASSESSMENT: 1. Severe sepsis. 2. Questionable aspiration event with radiographic worsening. 3. Tachycardia. 4. Acute encephalopathy. 5. Acute pancreatitis. 6. Anemia with thrombocytopenia. 7. Acute renal insufficiency, improving. 8. Diabetes. 9. History of right below knee amputation secondary to peripheral vascular disease. 10. History of methicillin-resistant Staphylococcus aureus infected left occipital wound post brain surgery. PLAN: The patient is doing worse today with worsening mental status, tachycardia and worsening respiratory status. He is covered with broad spectrum antibiotics, which we will continue. He is being followed by multiple consultants. Continue present care. Condition guarded. Dictated By: JOHNNIE BARCLAY BURN TABLE OPERATOR for GENARO MARIE/DAVIE Conf#: [id number] DID#: [id number] MTDD
[2017-05-07] MEDS ORDERED: LABETALOL HCL 20MG INJ IV ONE (18:00)
[2017-05-07] MEDS: DEXTROSE 5%-0.9% NACL 1,000 ML IV SCH (18:50)
[2017-05-07] MEDS: MEROPENEM 1 GM/50ML(PMX) 50 ML IVPB SCH (20:04)
--- NOTE | 2017-05-07 21:14 | RADRPT ---
PROCEDURE: Ultrasound of the bilateral lower extremity venous system. CLINICAL INDICATION: Bilateral leg pain and swelling, deep venous thrombosis TECHNIQUE: Paulino scale with and without compression, color doppler, spectral doppler of the venous system of the bilateral lower extremities was performed. Venous augmentation maneuvers were utilized . COMPARISON: No prior studies are available for comparison. FINDINGS: Right: Common femoral vein: Patent. Femoral vein: Patent. Popliteal vein: Surgically absent Calf veins: Surgically absent No soft tissue abnormalities are identified. Left: Common femoral vein: Patent. Femoral vein: Patent. Popliteal vein: Patent. Calf veins: Patent. No soft tissue abnormalities are identified. IMPRESSION: No evidence of a deep vein thrombosis within the bilateral lower extremities. RPTAT: AADD .Tanner Sue MD, MD Date Time Electronically viewed and signed by .Tanner Sue MD, on 05/07/2017 21:14 .B/
[2017-05-08] VITALS (24 sets, daily range): BP systolic 132–173; BP diastolic 78–134; PULSE 69–115; RESP 19–41
[2017-05-08 00:01] LABS: AADO2 Arterial 216.7 mmHg (7.0-24.0); Allen Test ACCEPTAB; Arterial Base Excess -0.2 mmol/L (-3.0-3); Arterial COHb 0.3 % (0.0-3.0); Arterial Fraction of Oxyhgb 94.2 % (93.0-99.0); Arterial HCO3 21.9 mmol/L (22.0-26.0); Arterial MetHb 0.2 % (0.0-1.5); Arterial Total Hemglobin 11.8 g/dl (12.0-18.0); MODE MASK - SIMPLE
[2017-05-08] MEDS: INSULIN ASPART [NOVOLOG] 3 ML PEN SC SCH ×6 (00:28→21:05)
[2017-05-08] MEDS ORDERED: LEVALBUTEROL (NEB) 1.25 MG/0.5 ML AMP HHN PRN (00:30)
[2017-05-08] MEDS: METOPROLOL 25 MG TAB PO SCH ×3 (05:17→18:13)
[2017-05-08] MEDS: PANTOPRAZOLE (EC) 40 MG TAB PO SCH (05:17)
[2017-05-08 06:52] LABS: ABNORMAL IP MESSAGE 1; BASOPHIL # 0.1 10^3/ul (0.0-0.1); BASOPHILS % 0.6 % (0.0-2.0); EOSINOPHILS # 0.2 10^3/ul (0.0-0.5); EOSINOPHILS % 1.1 % (0.0-7.0); HEMATOCRIT 31.3 % (42.0-52.0); HEMOGLOBIN 10.7 g/dl (14.0-18.0); LYMPHOCYTES # 1.1 10^3/ul (0.8-2.9); LYMPHOCYTES % 5.4 % (15.0-51.0); MEAN CORPUSCULAR HEMOGLOBIN 31.8 pg (29.0-33.0); MEAN CORPUSCULAR HGB CONC 34.2 g/dl (32.0-37.0); MEAN CORPUSCULAR VOLUME 92.9 fl (82.0-101.0); MEAN PLATELET VOLUME 10.6 fl (7.4-10.4); MONOCYTE # 0.8 10^3/ul (0.3-0.9); MONOCYTES % 4.3 % (0.0-11.0); NEUTROPHIL # 15.8 10^3/ul (1.6-7.5); NEUTROPHILS % 80.9 % (39.0-77.0); PLATELET COUNT 143 10^3/UL (140-415); POSITIVE DIFF @See below; RED BLOOD COUNT 3.37 10^6/ul (4.70-6.10); RED CELL DISTRIBUTION WIDTH 13.8 % (11.5-14.5); WHITE BLOOD COUNT 19.5 10^3/ul (4.8-10.8)
[2017-05-08 07:08] LABS: LACTIC ACID 1.1 mmol/L (0.5-2.0)
[2017-05-08 07:15] LABS: ALBUMIN 2.6 g/dl (3.3-4.9); ALBUMIN/GLOBULIN RATIO 1.04; BILIRUBIN,INDIRECT 0.7 mg/dl (0-1.1); BILIRUBIN,TOTAL 0.7 mg/dl (0.2-1.3); CALCIUM 8.3 mg/dl (8.4-10.2); CREATININE 2.92 mg/dl (0.61-1.24); POTASSIUM 3.8 mmol/L (3.5-5.1); TOTAL PROTEIN 5.1 g/dl (6.1-8.1)
[2017-05-08 07:23] LABS: MAGNESIUM 1.7 mg/dl (1.7-2.5); PHOSPHORUS 4.4 mg/dl (2.5-4.9)
--- NOTE | 2017-05-08 07:38 | CONS ---
Date/Time of Note Date/Time of Note DATE: 05/08/17 TIME: 07:36 Consult Date/Type/Reason Admit Date/Time May 03, 2017 at 12:49 Initial Consult Date 05/03/17 Type of Consultation: cardiology Ordering Provider: BRYAN MINOR DO Subjective CARDIOLOGY FOLLOW UP NOTE/ Critical care note: S: d/w staff and rhythm was reviewed. pt remains in sinus tachycardia/ NSR and he is hypertensive he has less abdominal pain. he denies any cp or sob to me. he is still in ICU pt was hypoxemic last night but has improved now on O2. O: General: in no distress HEENT: NC/AT. pupils are equal. round. NECK: NO JVD. no stridor. CV: tachycardic. . systolic murmur; no gallop or rubs. PULM: no wheezing or rhonchi. GI: mild tenderness. no rebound. Extremity: s/p R LE amputation. neuro: awake and alert. with right sided weakness Psych: calm and pleasant rectal: deferred : normal male ECHO Personally reviewed: 1. Hyperdynamic left ventricular systolic function. Normal left ventricular cavity size. Mild concentric left ventricular hypertrophy. Ejection fraction is visually estimated at 70 %. Abnormal Diastolic Function. 2. The left atrium is normal in size. 3. Mild mitral leaflet calcification. Mild mitral annular calcification. Trace mitral regurgitation. 4. No significant aortic stenosis or insufficiency. Aortic cusps appear mildly calcified. Non coronary cusp appears moderately calcified. 5. Normal appearance of the tricuspid valve. Estimated peak PA systolic pressure 56 mmHg. There is mild tricuspid regurgitation. 6. The IVC is not well visualized. Objective Vital Signs Date Time Temp Pulse Resp B/P Pulse Ox O2 Delivery O2 Flow Rate FiO2 05/08/17 06:00 104 33 143/112 99 Mask 8.0 05/08/17 04:00 99.5 05/04/17 18:32 40 Intake and Output 05/07/17 05/07/17 05/08/17 15:00 23:00 07:00 Intake Total 1000 ml 830 ml 420 ml Output Total 1000 ml 780 ml 755 ml Balance 0 ml 50 ml -335 ml Results/Medications Result Diagram: 05/08/17 0545 05/08/17 0545 Results 24 hrs Laboratory Tests Test 05/07/17 09:08 05/07/17 09:17 05/07/17 11:10 05/07/17 11:20 Bedside Glucose 237 H 234 H Blood Gas Specimen Source Blood arterial Arterial Blood Date Drawn 05/07/2017 9:30:42 AM Arterial Blood pH (Temp corrected) 7.482 H Arterial Blood pCO2 (Temp correct) 28.6 L Arterial Blood pO2 (Temp corrected) 70.5 L Arterial Blood HCO3 20.9 L Arterial Blood Base Excess -1.6 Arterial Blood Oxygen Saturation 94.4 L Marcos Test ACCEPTAB Arterial Blood Gas Puncture Site Right Radial Arterial Blood Carboxyhemoglobin 0.3 Arterial Blood Methemoglobin 0.3 Blood Gas A-a O2 Differential 109.8 H Oxyhemoglobin Percent 93.8 Total Hemoglobin 11.6 L Blood Gas Temperature 37.0 Blood Gas Modality NASAL CANNULA FiO2 30.0 Blood Gas Notified Whom DEIRDRED Blood Gas Notified Time 05/07/2017 9:39:17 AM Urine Color YELLOW Urine Clarity CLEAR Urine pH 5.0 Urine Specific [place] 1.009 Urine Ketones 1+ H Urine Nitrite NEGATIVE Urine Bilirubin NEGATIVE Urine Urobilinogen NEGATIVE Urine Leukocyte Esterase NEGATIVE Urine Microscopic RBC 73 H Urine Microscopic WBC 14 H Urine Mucus FEW A Urine Yeast (Budding) FEW A Urine Hemoglobin 3+ H Urine Glucose 3+ H Urine Total Protein 2+ H Test 05/07/17 17:08 05/07/17 19:11 05/07/17 20:02 05/07/17 23:40 Bedside Glucose 114 136 Lactic Acid Level 1.3 Blood Gas Specimen Source Blood arterial Arterial Blood Date Drawn 05/07/2017 11:45:34 PM Arterial Blood pH (Temp corrected) 7.509 H Arterial Blood pCO2 (Temp correct) 28.1 L Arterial Blood pO2 (Temp corrected) 72.2 L Arterial Blood HCO3 21.9 L Arterial Blood Base Excess -0.2 Arterial Blood Oxygen Saturation 94.7 L Marcos Test ACCEPTAB Arterial Blood Gas Puncture Site Left Radial Arterial Blood Carboxyhemoglobin 0.3 Arterial Blood Methemoglobin 0.2 Blood Gas A-a O2 Differential 216.7 H Oxyhemoglobin Percent 94.2 Total Hemoglobin 11.8 L Blood Gas Temperature 37.0 Blood Gas Modality MASK - SIMPLE FiO2 45.0 Blood Gas Notified Whom ROGELIO Blood Gas Notified Time 05/08/2017 12:01:15 AM Test 05/08/17 00:25 05/08/17 05:16 05/08/17 05:45 Bedside Glucose 179 207 White Blood Count 19.5 H Red Blood Count 3.37 L Hemoglobin 10.7 L Hematocrit 31.3 L Mean Corpuscular Volume 92.9 Mean Corpuscular Hemoglobin 31.8 Mean Corpuscular Hemoglobin Concent 34.2 Red Cell Distribution Width 13.8 Platelet Count 143 Mean Platelet Volume 10.6 H Neutrophils % 80.9 H Lymphocytes % 5.4 L Monocytes % 4.3 Eosinophils % 1.1 Basophils % 0.6 Nucleated Red Blood Cells % 0.0 Neutrophils # 15.8 H Lymphocytes # 1.1 Monocytes # 0.8 Eosinophils # 0.2 Basophils # 0.1 Nucleated Red Blood Cells # 0.0 Sodium Level 145 H Potassium Level 3.8 Chloride Level 108 Carbon Dioxide Level 23 Anion Gap 18 H Blood Urea Nitrogen 63 H Creatinine 2.92 H Glucose Level 191 Lactic Acid Level 1.1 Calcium Level 8.3 L Phosphorus Level 4.4 Magnesium Level 1.7 Total Bilirubin 0.7 Direct Bilirubin 0.00 Indirect Bilirubin 0.7 Aspartate Amino Transf (AST/SGOT) 22 Alanine Aminotransferase (ALT/SGPT) 29 Alkaline Phosphatase 131 H Ammonia 13 Total Protein 5.1 L Albumin 2.6 L Globulin 2.50 Albumin/Globulin Ratio 1.04 Random Vancomycin Level 6.2 Medications Current Medications Ondansetron HCl (Zofran Inj) 4 mg Q6H PRN IV NAUSEA AND/OR VOMITING Last administered on 05/03/17 08:47; Admin Dose 4 MG; Start 05/02/17 at 19:00 Lorazepam 0.5 mg 0.5 mg Q2H PRN IV ANXIETY Last administered on 05/06/17 16: 03; Admin Dose 0.5 MG; Start 05/02/17 at 19:00 Meropenem/Sodium Chloride (Merrem 1 Gm/50 ml (Pmx)) 50 ml @ 100 mls/hr Q24H IVPB Last administered on 05/07/17 20:04; Admin Dose 100 MLS/HR; Start at 20:00 Hydromorphone HCl (Dilaudid) 1 mg Q4H PRN IV PAIN LEVEL 7-10 Last administered on 05/05/17 22:57; Admin Dose 1 MG; Start 05/02/17 at 23:00 Miscellaneous Information 1 ea NOTE XX ; Start 05/03/17 at 14:00 Glucose (Glutose) 15 gm Q15M PRN PO DECREASED GLUCOSE; Start 05/03/17 at 14:00 Glucose (Glutose) 22.5 gm Q15M PRN PO DECREASED GLUCOSE; Start 05/03/17 at 14: 00 Dextrose (D50w Syringe) 25 ml Q15M PRN IV DECREASED GLUCOSE; Start 05/03/17 at 14:00 Dextrose (D50w Syringe) 50 ml Q15M PRN IV DECREASED GLUCOSE; Start 05/03/17 at 14:00 Glucagon (Glucagen) 1 mg Q15M PRN IM DECREASED GLUCOSE; Start 05/03/17 at 14:00 Glucose (Glutose) 15 gm Q15M PRN BUCCAL DECREASED GLUCOSE; Start 05/03/17 at 14 :00 Bisacodyl 10 mg 10 mg DAILY PRN [place] CONSTIPATION Last administered on 05/04/17 17:20; Admin Dose 10 MG; Start 05/03/17 at 17:00 Phenylephrine HCl/ Dextrose (Dean-Syneph/D5W) 250 ml @ 0 mls/hr TITRATE IV Last administered on 05/04/17 17:15; Admin Dose 20 MLS/HR; Start 05/03/17 at 17:00 Miscellaneous Information This patient bustillo... PRN PRN XX WOUND CARE; Start 05/03 at 19:00 Vancomycin HCl (Vancocin) 250 ml @ 125 mls/hr Q96H IVPB Last administered on 05/04/17 09:42; Admin Dose 125 MLS/HR; Start 05/04/17 at 10:00 Insulin Glargine (Lantus) 10 unit DAILY SC Last administered on 05/07/17 09: 09; Admin Dose 10 UNIT; Start 05/07/17 at 09:00 Olanzapine (Zyprexa) 2.5 mg BID PO Last administered on 05/07/17 20:04; Admin Dose 2.5 MG; Start 05/06/17 at 21:00 Pantoprazole (Protonix Tab) 40 mg DAILY@06 PO Last administered on 05/08/17 05:17; Admin Dose 40 MG; Start 05/07/17 at 06:00 Metoprolol Tartrate 50 mg 50 mg Q6 PO Last administered on 05/08/17 05:17; Admin Dose 50 MG; Start 05/07/17 at 12:00 Dextrose/Sodium Chloride (D5-NS) 1,000 ml @ 60 mls/hr [id number] IV Last administered on 05/07/17 18:50; Admin Dose 60 MLS/HR; Start 05/07/17 at 18:30 Insulin Aspart (Novolog Insulin Pen) NOVOLOG *MODERATE* ALGORI... Q4 SC Last administered on 05/08/17 05:29; Admin Dose 4 UNIT; Start 05/07/17 at 21:00 Assessment/Plan Chief Complaint/Hosp Course 1. Sinus tachycardia secondary to below. 2. Severe sepsis and septic shock. 3. Severe pancreatitis. 4. Diabetes. 7. Severe metabolic acidosis. 8. HX of Hypertension, currently in shock and hypotensive. 9. History of dyslipidemia. 10. History of RLE amputation. 11. History of craniotomy and meningioma, status post craniotomy. 12. History of seizure disorder. 13. JESUSITA on CKD. :improving now 14. hypo Na. 15. mildly abnormal trop due to above 16. HTN RECOMMENDATIONS: Antibiotic is managed as per infectious disease and Dr. Vincent. echo reviewed and did not show any evidence of LV dysfunction or effusion to explain the pt's tachycardia Electrolytes will be checked periodically and adjusted. cont Insulin. cont metoprlol f.u with renal consultants rec. diuresis prn to be adjusted by renal THANK YOU CARMEN MELO MD [facility]. Problems: CARMEN MELO MD May 08, 2017 07:38
[2017-05-08 08:12] LABS: AADO2 Arterial 250.5 mmHg (7.0-24.0); Allen Test ACCEPTAB; Arterial Base Excess 0.7 mmol/L (-3.0-3); Arterial COHb 0.3 % (0.0-3.0); Arterial Fraction of Oxyhgb 96.4 % (93.0-99.0); Arterial HCO3 23.6 mmol/L (22.0-26.0); Arterial MetHb 0.1 % (0.0-1.5); Arterial Total Hemglobin 11.5 g/dl (12.0-18.0); MODE MASK - SIMPLE
--- NOTE | 2017-05-08 08:15 | PN ---
DATE: 05/07/2017 SUBJECTIVE: Patient seen, unfortunately, the patient has been doing worse today. He is febrile, rem ains tachycardic and hypertensive as well. The patient was cultured again including urine cultures, wound culture. ABG was done as well which showed the following: pH of 7.48, pCO2 of 29, pO2 of 71 , bicarbonate of 21, saturation is 95%. This is at 37% FIO2 with 30%. The patient has been tolerati ng his diet well, but I will keep him n.p.o. until he is improved pulmonary-tilley and becomes more af ebrile. Will hold also the Ativan, is very slightly lethargic. I did start him on Zyprexa yesterda y. The patient was very anxious, just low dose 2.5 b.i.d. The patient also with worsening leukocyto sis. Overall, very concerned about overall an infectious process which may be due to his pancreatit is. PHYSICAL EXAMINATION: VITAL SIGNS: Temperature was 99.6, pulse 116, respirations up to 37, blood pressure is 147/106, O2 s aturation 98% on simple mask 6 liters. GENERAL: The patient is in mild distress since he is tachypneic. The patient is responding to me a ppropriately. The patient is closing his eyes. CARDIOVASCULAR: Positive S1 and S2, tachycardic. LUNGS: Slightly tachypneic with decreased breath sounds bilaterally. ABDOMEN: Soft, nontender, distended. EXTREMITIES: Right upper extremity +2. The rest is in the left upper extremity +1 trace to +1 sheyla a of the lower extremities. The patient has right AKA. LABORATORY DATA: White count is 8.6, hemoglobin 10.8, hematocrit 32, platelet count of 131, improve d. No stigmata, neutrophils 76, bands 7%. Chemistry: Sodium 142, potassium 3.9, chloride 104, bica rbonate 21, BUN 68, creatinine 3.9 and glucose of 238. Alkaline phosphatase 143. Total protein 5.9, albumin 3.0. Last glucose of 114 and 234. MICROBIOLOGY: Urine culture and blood cultures. MRSA of the nares negative. Chest x-ray does show patchy left lower lobe opacification, pneumonia versus atelectasis, correlate clinically. MEDICATIONS: Include 1. Vancomycin dose per pharmacy. 2. Metoprolol 50 q.6h. 3. Lantus 10 units daily. 4. Protonix 40 mg daily. 5. Zyprexa 2.5 b.i.d. 6. Insulin Aspart per sliding scale. 7. Ativan 0.5 b.i.d., which I will discontinue. 8. Normal saline at 80 mL an hour. 9. Vancomycin dose per pharmacy. 10. Dulcolax p.r.n. 11. Phenylephrine as directed. Currently off pressors. 12. Dilaudid p.r.n. 13. Merrem IV dose per pharmacy. 14. Zofran p.r.n. 15. DuoNebs p.r.n. 16. Ativan p.r.n. 17. Vancomycin p.r.n. ASSESSMENT AND PLAN: This is an unfortunate 67-year-old male with history of meningioma s tatus post craniotomy, diabetes mellitus, left forehead wound, CKD, right AKA amputation who present ed with acute pancreatitis tachycardia, sepsis, metabolic acidosis. 1. Respiratory: The patient with worsening tachypnea. Continue ICU care. Continue above facemask . We will obtain an ABG in the a.m. May consider BiPAP if he gets tired of worsening hypoxia. Keep him n.p.o. for now as patient's condition has worsened. 2. Cardiovascular. The patient is hypertensive. Labetalol x1 was ordered. No need for pressors. Tachycardia likely from fevers and sepsis. Check lactic acid level. 3. Infectious disease. Remains on broad-spectrum antibiotics with vancomycin and Merrem. Follow u p urine studies. Follow up left forehead wound culture empirically. Continue above antibiotics. 4. Acute pancreatitis. The patient does not have any more pain. We will follow up with lipase lev els as well. Continue with fluid hydration for now. 5. The patient was placed on gastrointestinal prophylaxis and deep venous thrombosis prophylaxis. His platelet counts have improved. 6. Diabetes mellitus. Continue insulin with Lantus 10 units daily and insulin sliding scale for no w. 7. Hold diet because of patient's worsening condition. 8. Keep the patient in the intensive care unit. 9. Condition is guarded. 10. Acute renal failure, improved with above hydration. Currently no need for dialysis. 11. Infectious disease. Again, the patient's chest x-ray suggests possible pneumonia versus atelec tasis. Again, keep n.p.o. Speech therapy to follow before we advance diet further. We will follow. Dictated By: DOMINGO GILMORE/DAVIE Conf#: [id number] DID#: [id number]
[2017-05-08] MEDS: INSULIN GLARGINE [LANtus] 3 ML PEN SC SCH (09:06)
[2017-05-08] MEDS: OLANZAPINE 2.5 MG TAB PO SCH ×2 (09:17→21:00)
--- NOTE | 2017-05-08 09:38 | RADRPT ---
PROCEDURE: XR Chest. CLINICAL INDICATION: Shortness of breath. TECHNIQUE: Single frontal view. COMPARISON: 05/07/2017. FINDINGS: There is mild atelectasis at the lung bases, unchanged. The heart is enlarged. There is no pleural effusion. There is no pneumothorax. IMPRESSION: 1. Mild atelectasis at the lung bases, unchanged. 2. Cardiomegaly. RPTAT: QQ .Ric Walker MD, MD Date Time Electronically viewed and signed by .Ric Walker MD, MD on 05/08/2017 09:38 .R/
--- NOTE | 2017-05-08 10:20 | CONS ---
Date/Time of Note Date/Time of Note DATE: 05/08/17 TIME: 09:48 Consult Date/Type/Reason Admit Date/Time May 03, 2017 at 12:49 Initial Consult Date 05/03/17 Type of Consultation: neph Ordering Provider: BRYAN MINOR DO Subjective 67-year-old gentleman with multiple complicated medical history who [facility] due to constipation and abdominal discomfort. Workup has shown severe sepsis, shock, and severe pancreatitis. The patient has been tachycardic. Heart rate has been as high as 160. He complains of diffuse abdominal pain. No chest pain or pressure. Denies any shortness of breath at this point. He has arf with baselin creatinine of 1.3 which is improving continues to have good uop Imaging studies showed renal mass but no obstruction He is currently on ivf with stable bp seen in ICU He is febrile, remains tachycardic and hypertensive as well. The patient was cultured again including urine cultures, wound culture. ABG was done as well which showed the following: pH of 7.48, pCO2 of 29, pO2 of 71, bicarbonate of 21, saturation is 95%. This is at 37% FIO2 with 30%. d/w pulm arf is slightly improved. His UOP is increasing no nausea, vomiting, new rash, hematuria, melena, diaphoresis or fever cxr reviewed PHYSICAL EXAMINATION: HEENT: Normocephalic, atraumatic. No acute respiratory distress. Eyes: Pupils are equal. CARDIOVASCULAR: Tachycardic. PULMONARY: With no wheeze anteriorly. GASTROINTESTINAL: Distended, positive tender to palpation. Very diffuse tenderness and mild guarding, no rebound. EXTREMITIES: Positive right lower extremity BKA. NEUROLOGIC: He is awake, responds appropriately, with one-sided weakness. PSYCHIATRIC: Appears to be calm. Objective Vital Signs Date Time Temp Pulse Resp B/P Pulse Ox O2 Delivery O2 Flow Rate FiO2 05/08/17 08:00 99.2 93 33 173/98 100 Mask 05/08/17 08:00 8.0 05/04/17 18:32 40 Intake and Output 05/07/17 05/07/17 05/08/17 15:00 23:00 07:00 Intake Total 1000 ml 830 ml 420 ml Output Total 1000 ml 780 ml 755 ml Balance 0 ml 50 ml -335 ml Results/Medications Result Diagram: 05/08/17 0545 05/08/17 0545 Results 24 hrs Laboratory Tests Test 05/07/17 11:10 05/07/17 11:20 05/07/17 17:08 05/07/17 19:11 Bedside Glucose 234 H 114 Urine Color YELLOW Urine Clarity CLEAR Urine pH 5.0 Urine Specific [place] 1.009 Urine Ketones 1+ H Urine Nitrite NEGATIVE Urine Bilirubin NEGATIVE Urine Urobilinogen NEGATIVE Urine Leukocyte Esterase NEGATIVE Urine Microscopic RBC 73 H Urine Microscopic WBC 14 H Urine Mucus FEW A Urine Yeast (Budding) FEW A Urine Hemoglobin 3+ H Urine Glucose 3+ H Urine Total Protein 2+ H Lactic Acid Level 1.3 Test 05/07/17 20:02 05/07/17 23:40 05/08/17 00:25 05/08/17 05:16 Bedside Glucose 136 179 207 Blood Gas Specimen Source Blood arterial Arterial Blood Date Drawn 05/07/2017 11:45:34 PM Arterial Blood pH (Temp corrected) 7.509 H Arterial Blood pCO2 (Temp correct) 28.1 L Arterial Blood pO2 (Temp corrected) 72.2 L Arterial Blood HCO3 21.9 L Arterial Blood Base Excess -0.2 Arterial Blood Oxygen Saturation 94.7 L Marcos Test ACCEPTAB Arterial Blood Gas Puncture Site Left Radial Arterial Blood Carboxyhemoglobin 0.3 Arterial Blood Methemoglobin 0.2 Blood Gas A-a O2 Differential 216.7 H Oxyhemoglobin Percent 94.2 Total Hemoglobin 11.8 L Blood Gas Temperature 37.0 Blood Gas Modality MASK - SIMPLE FiO2 45.0 Blood Gas Notified Whom MA Blood Gas Notified Time 05/08/2017 12:01:15 AM Test 05/08/17 05:45 05/08/17 07:00 05/08/17 08:51 White Blood Count 19.5 H Red Blood Count 3.37 L Hemoglobin 10.7 L Hematocrit 31.3 L Mean Corpuscular Volume 92.9 Mean Corpuscular Hemoglobin 31.8 Mean Corpuscular Hemoglobin Concent 34.2 Red Cell Distribution Width 13.8 Platelet Count 143 Mean Platelet Volume 10.6 H Neutrophils % 80.9 H Lymphocytes % 5.4 L Monocytes % 4.3 Eosinophils % 1.1 Basophils % 0.6 Nucleated Red Blood Cells % 0.0 Neutrophils # 15.8 H Lymphocytes # 1.1 Monocytes # 0.8 Eosinophils # 0.2 Basophils # 0.1 Nucleated Red Blood Cells # 0.0 Sodium Level 145 H Potassium Level 3.8 Chloride Level 108 Carbon Dioxide Level 23 Anion Gap 18 H Blood Urea Nitrogen 63 H Creatinine 2.92 H Glucose Level 191 Lactic Acid Level 1.1 Calcium Level 8.3 L Phosphorus Level 4.4 Magnesium Level 1.7 Total Bilirubin 0.7 Direct Bilirubin 0.00 Indirect Bilirubin 0.7 Aspartate Amino Transf (AST/SGOT) 22 Alanine Aminotransferase (ALT/SGPT) 29 Alkaline Phosphatase 131 H Ammonia 13 Total Protein 5.1 L Albumin 2.6 L Globulin 2.50 Albumin/Globulin Ratio 1.04 Random Vancomycin Level 6.2 Blood Gas Specimen Source Blood arterial Arterial Blood Date Drawn 05/08/2017 8:02:46 AM Arterial Blood pH (Temp corrected) 7.481 H Arterial Blood pCO2 (Temp correct) 32.4 L Arterial Blood pO2 (Temp corrected) 91.2 Arterial Blood HCO3 23.6 Arterial Blood Base Excess 0.7 Arterial Blood Oxygen Saturation 96.8 Marcos Test ACCEPTAB Arterial Blood Gas Puncture Site Right Radial Arterial Blood Carboxyhemoglobin 0.3 Arterial Blood Methemoglobin 0.1 Blood Gas A-a O2 Differential 250.5 H Oxyhemoglobin Percent 96.4 Total Hemoglobin 11.5 L Blood Gas Temperature 37.0 Blood Gas Modality MASK - SIMPLE FiO2 53.0 Blood Gas Notified Whom JLD Blood Gas Notified Time 05/08/2017 8:12:33 AM Bedside Glucose 211 Medications Current Medications Ondansetron HCl (Zofran Inj) 4 mg Q6H PRN IV NAUSEA AND/OR VOMITING Last administered on 05/03/17 08:47; Admin Dose 4 MG; Start 05/02/17 at 19:00 Lorazepam 0.5 mg 0.5 mg Q2H PRN IV ANXIETY Last administered on 05/06/17 16: 03; Admin Dose 0.5 MG; Start 05/02/17 at 19:00 Meropenem/Sodium Chloride (Merrem 1 Gm/50 ml (Pmx)) 50 ml @ 100 mls/hr Q24H IVPB Last administered on 05/07/17 20:04; Admin Dose 100 MLS/HR; Start at 20:00 Hydromorphone HCl (Dilaudid) 1 mg Q4H PRN IV PAIN LEVEL 7-10 Last administered on 05/05/17 22:57; Admin Dose 1 MG; Start 05/02/17 at 23:00 Miscellaneous Information 1 ea NOTE XX ; Start 05/03/17 at 14:00 Glucose (Glutose) 15 gm Q15M PRN PO DECREASED GLUCOSE; Start 05/03/17 at 14:00 Glucose (Glutose) 22.5 gm Q15M PRN PO DECREASED GLUCOSE; Start 05/03/17 at 14: 00 Dextrose (D50w Syringe) 25 ml Q15M PRN IV DECREASED GLUCOSE; Start 05/03/17 at 14:00 Dextrose (D50w Syringe) 50 ml Q15M PRN IV DECREASED GLUCOSE; Start 05/03/17 at 14:00 Glucagon (Glucagen) 1 mg Q15M PRN IM DECREASED GLUCOSE; Start 05/03/17 at 14:00 Glucose (Glutose) 15 gm Q15M PRN BUCCAL DECREASED GLUCOSE; Start 05/03/17 at 14 :00 Bisacodyl 10 mg 10 mg DAILY PRN [place] CONSTIPATION Last administered on 05/04/17 17:20; Admin Dose 10 MG; Start 05/03/17 at 17:00 Phenylephrine HCl/ Dextrose (Dean-Syneph/D5W) 250 ml @ 0 mls/hr TITRATE IV Last administered on 05/04/17 17:15; Admin Dose 20 MLS/HR; Start 05/03/17 at 17:00 Miscellaneous Information (Pending [facility] Order For Wound Care) This patient bustillo... PRN PRN XX WOUND CARE; Start 05/03/17 at 19:00 Insulin Glargine (Lantus) 10 unit DAILY SC Last administered on 05/08/17 09: 06; Admin Dose 10 UNIT; Start 05/07/17 at 09:00 Olanzapine (Zyprexa) 2.5 mg BID PO Last administered on 05/08/17 09:17; Admin Dose 2.5 MG; Start 05/06/17 at 21:00 Pantoprazole (Protonix Tab) 40 mg DAILY@06 PO Last administered on 05/08/17 05:17; Admin Dose 40 MG; Start 05/07/17 at 06:00 Metoprolol Tartrate 50 mg 50 mg Q6 PO Last administered on 05/08/17 05:17; Admin Dose 50 MG; Start 05/07/17 at 12:00 Dextrose/Sodium Chloride (D5-NS) 1,000 ml @ 60 mls/hr [id number] IV Last administered on 05/07/17 18:50; Admin Dose 60 MLS/HR; Start 05/07/17 at 18:30 Insulin Aspart NOVOLOG *MODERATE* ALGORI... Q4 SC Last administered on 09:07; Admin Dose 4 UNIT; Start 05/07/17 at 21:00 Vancomycin HCl/ Sodium Chloride (Vancocin/NS) 250 ml @ 83.333 mls/ hr Q48H IVPB ; Start 05/08/17 at 09:30 Assessment/Plan Chief Complaint/Hosp Course ASSESSMENT AND PLAN: 1. ARF due to ATN. his uop is increasing and serum creatinine continues to improve. imaging studies were reviewed. continue IVF and pressors. keep MAP > 60. will hold off on HD. monitor serial labs and watch for diuretic phase of justa. avoid nephrotoxins. al meds dosed ok. 2. Severe sepsis and septic shock. on abx and pressors 3. Severe pancreatitis. 4. Diabetes. 7. Severe metabolic acidosis. improving. ABG reviewed 8. Hypertension, currently in shock and hypotensive. 9. History of dyslipidemia. 10. History of below-knee amputation. 11. History of craniotomy and meningioma, status post craniotomy. 12. History of seizure disorder. Problems: JERSEY WHITE MD May 08, 2017 10:19
[2017-05-08] MEDS: VANCOMYCIN 1.25 GM in SOD CHLORIDE 0.9% 250 ML IVPB SCH (10:45)
[2017-05-08] MEDS: DEXTROSE 5%-0.9% NACL 1,000 ML IV SCH (11:47)
[2017-05-08] MEDS ORDERED: INSULIN GLARGINE [LANtus] 3 ML PEN SC ONE (12:00)
--- NOTE | 2017-05-08 12:41 | CONS ---
Date/Time of Note Date/Time of Note DATE: 05/08/17 TIME: 12:41 Consultation Date/Type/Reason Admit Date/Time May 03, 2017 at 12:49 Initial Consult Date 05/03/17 Type of Consultation: pulm/cc Referring Provider: BRYAN MINOR DO 24 HR Interval Summary Free Text/Dictation dictated [id number] Exam/Review of Systems Vital Signs Vitals Vital Signs Date Time Temp Pulse Resp B/P Pulse Ox O2 Delivery O2 Flow Rate FiO2 05/08/17 12:00 93 05/08/17 10:00 22 153/83 97 Nasal Cannula 05/08/17 08:00 99.2 05/08/17 08:00 8.0 05/04/17 18:32 40 Intake and Output 05/07/17 05/07/17 05/08/17 15:00 23:00 07:00 Intake Total 1000 ml 830 ml 420 ml Output Total 1000 ml 780 ml 755 ml Balance 0 ml 50 ml -335 ml Results Result Diagram: 05/08/17 0545 05/08/17 0545 Results 24 hrs Laboratory Tests Test 05/07/17 17:08 05/07/17 19:11 05/07/17 20:02 05/07/17 23:40 Bedside Glucose 114 136 Lactic Acid Level 1.3 Blood Gas Specimen Source Blood arterial Arterial Blood Date Drawn 05/07/2017 11:45:34 PM Arterial Blood pH (Temp corrected) 7.509 H Arterial Blood pCO2 (Temp correct) 28.1 L Arterial Blood pO2 (Temp corrected) 72.2 L Arterial Blood HCO3 21.9 L Arterial Blood Base Excess -0.2 Arterial Blood Oxygen Saturation 94.7 L Marcos Test ACCEPTAB Arterial Blood Gas Puncture Site Left Radial Arterial Blood Carboxyhemoglobin 0.3 Arterial Blood Methemoglobin 0.2 Blood Gas A-a O2 Differential 216.7 H Oxyhemoglobin Percent 94.2 Total Hemoglobin 11.8 L Blood Gas Temperature 37.0 Blood Gas Modality MASK - SIMPLE FiO2 45.0 Blood Gas Notified Whom MA Blood Gas Notified Time 05/08/2017 12:01:15 AM Test 05/08/17 00:25 05/08/17 05:16 05/08/17 05:45 05/08/17 07:00 Bedside Glucose 179 207 White Blood Count 19.5 H Red Blood Count 3.37 L Hemoglobin 10.7 L Hematocrit 31.3 L Mean Corpuscular Volume 92.9 Mean Corpuscular Hemoglobin 31.8 Mean Corpuscular Hemoglobin Concent 34.2 Red Cell Distribution Width 13.8 Platelet Count 143 Mean Platelet Volume 10.6 H Neutrophils % 80.9 H Lymphocytes % 5.4 L Monocytes % 4.3 Eosinophils % 1.1 Basophils % 0.6 Nucleated Red Blood Cells % 0.0 Neutrophils # 15.8 H Lymphocytes # 1.1 Monocytes # 0.8 Eosinophils # 0.2 Basophils # 0.1 Nucleated Red Blood Cells # 0.0 Sodium Level 145 H Potassium Level 3.8 Chloride Level 108 Carbon Dioxide Level 23 Anion Gap 18 H Blood Urea Nitrogen 63 H Creatinine 2.92 H Glucose Level 191 Hemoglobin A1c 6.3 H Lactic Acid Level 1.1 Calcium Level 8.3 L Phosphorus Level 4.4 Magnesium Level 1.7 Total Bilirubin 0.7 Direct Bilirubin 0.00 Indirect Bilirubin 0.7 Aspartate Amino Transf (AST/SGOT) 22 Alanine Aminotransferase (ALT/SGPT) 29 Alkaline Phosphatase 131 H Ammonia 13 Total Protein 5.1 L Albumin 2.6 L Globulin 2.50 Albumin/Globulin Ratio 1.04 Random Vancomycin Level 6.2 Blood Gas Specimen Source Blood arterial Arterial Blood Date Drawn 05/08/2017 8:02:46 AM Arterial Blood pH (Temp corrected) 7.481 H Arterial Blood pCO2 (Temp correct) 32.4 L Arterial Blood pO2 (Temp corrected) 91.2 Arterial Blood HCO3 23.6 Arterial Blood Base Excess 0.7 Arterial Blood Oxygen Saturation 96.8 Marcos Test ACCEPTAB Arterial Blood Gas Puncture Site Right Radial Arterial Blood Carboxyhemoglobin 0.3 Arterial Blood Methemoglobin 0.1 Blood Gas A-a O2 Differential 250.5 H Oxyhemoglobin Percent 96.4 Total Hemoglobin 11.5 L Blood Gas Temperature 37.0 Blood Gas Modality MASK - SIMPLE FiO2 53.0 Blood Gas Notified Whom JLD Blood Gas Notified Time 05/08/2017 8:12:33 AM Test 05/08/17 08:51 Bedside Glucose 211 Medications Medications Current Medications Ondansetron HCl (Zofran Inj) 4 mg Q6H PRN IV NAUSEA AND/OR VOMITING Last administered on 05/03/17t 08:47; Admin Dose 4 MG; Start 05/02/17 at 19:00 Lorazepam 0.5 mg 0.5 mg Q2H PRN IV ANXIETY Last administered on 05/06/17 16: 03; Admin Dose 0.5 MG; Start 05/02/17 at 19:00 Meropenem/Sodium Chloride (Merrem 1 Gm/50 ml (Pmx)) 50 ml @ 100 mls/hr Q24H IVPB Last administered on 05/07/17 20:04; Admin Dose 100 MLS/HR; Start at 20:00 Hydromorphone HCl (Dilaudid) 1 mg Q4H PRN IV PAIN LEVEL 7-10 Last administered on 05/05/17 22:57; Admin Dose 1 MG; Start 05/02/17 at 23:00 Miscellaneous Information 1 ea NOTE XX ; Start 05/03/17 at 14:00 Glucose (Glutose) 15 gm Q15M PRN PO DECREASED GLUCOSE; Start 05/03/17 at 14:00 Glucose (Glutose) 22.5 gm Q15M PRN PO DECREASED GLUCOSE; Start 05/03/17 at 14: 00 Dextrose (D50w Syringe) 25 ml Q15M PRN IV DECREASED GLUCOSE; Start 05/03/17 at 14:00 Dextrose (D50w Syringe) 50 ml Q15M PRN IV DECREASED GLUCOSE; Start 05/03/17 at 14:00 Glucagon (Glucagen) 1 mg Q15M PRN IM DECREASED GLUCOSE; Start 05/03/17 at 14:00 Glucose (Glutose) 15 gm Q15M PRN BUCCAL DECREASED GLUCOSE; Start 05/03/17 at 14 :00 Bisacodyl 10 mg 10 mg DAILY PRN [place] CONSTIPATION Last administered on 05/04/17 17:20; Admin Dose 10 MG; Start 05/03/17 at 17:00 Phenylephrine HCl/ Dextrose (Dean-Syneph/D5W) 250 ml @ 0 mls/hr TITRATE IV Last administered on 05/04/17 17:15; Admin Dose 20 MLS/HR; Start 05/03/17 at 17:00 Miscellaneous Information (Pending [facility] Order For Wound Care) This patient bustillo... PRN PRN XX WOUND CARE; Start 05/03/17 at 19:00 Insulin Glargine (Lantus) 10 unit DAILY SC Last administered on 05/08/17 09: 06; Admin Dose 10 UNIT; Start 05/07/17 at 09:00 Olanzapine (Zyprexa) 2.5 mg BID PO Last administered on 05/08/17 09:17; Admin Dose 2.5 MG; Start 05/06/17 at 21:00 Pantoprazole (Protonix Tab) 40 mg DAILY@06 PO Last administered on 05/08/17 05:17; Admin Dose 40 MG; Start 05/07/17 at 06:00 Metoprolol Tartrate 50 mg 50 mg Q6 PO Last administered on 05/08/17 11:53; Admin Dose 50 MG; Start 05/07/17 at 12:00 Dextrose/Sodium Chloride (D5-NS) 1,000 ml @ 60 mls/hr [id number] IV Last administered on 05/08/17 11:47; Admin Dose 60 MLS/HR; Start 05/07/17 at 18:30 Insulin Aspart NOVOLOG *MODERATE* ALGORI... Q4 SC Last administered on 09:07; Admin Dose 4 UNIT; Start 05/07/17 at 21:00 Vancomycin HCl/ Sodium Chloride (Vancocin/NS) 250 ml @ 83.333 mls/ hr Q48H IVPB Last administered on 05/08/17 10:45; Admin Dose 83.333 MLS/HR; Start at 09:30 Insulin Glargine 20 unit 20 unit DAILY@08 SC ; Start 05/09/17 at 08:00 Fluconazole/ Sodium Chloride (Diflucan 100 Mg/ NS (Pmx)) 50 ml @ 50 mls/hr Q24H IVPB ; Start 05/08/17 at 13:30 SUSANNAH GUERRIER May 08, 2017 12:41
[2017-05-08] MEDS ORDERED: LIDOCAINE 1% (MPF) 5 ML VIAL SC ONE (13:00)
--- NOTE | 2017-05-08 13:44 | RADRPT ---
Vent Rate: 117 bpm RR Interval: 0 msec MN Interval: 138 msec QRS Duration: 72 msec QT Interval: 354 msec QTC Interval: 493 msec P-R-T [place]: 56 - 8 - 66 degrees Sinus tachycardia Low voltage QRS Inverted T in aVL Borderline ECG Electronically Signed By: Juarez Bourgeois [id number]
[2017-05-08] MEDS: FLUCONAZOLE 100 MG/NS (PMX) 50 ML IVPB SCH (14:02)
--- NOTE | 2017-05-08 14:13 | PN ---
DATE: 05/08/2017 INFECTIOUS DISEASE PROGRESS NOTE SUBJECTIVE: No events overnight. The patient is sleeping. He is in no distress. No shortness of breath. PHYSICAL EXAMINATION VITAL SIGNS: T-max 100.2, T-current 99.2, respirations 22, blood pressure 153/83, saturation 97% on nasal cannula. Heart rate 90. DIAGNOSTICS: Chest x-ray this morning revealed mild atelectasis at lung bases, unchanged. MICROBIOLOGY: Urine culture growing yeast from yesterday. ANTIMICROBIALS: The patient is on IV vancomycin and meropenem. INDWELLINGS: The patient has High catheter. PHYSICAL EXAMINATION: GENERAL: This is a chronically ill-appearing, obese elderly man who is in no distress. HEENT: Head atraumatic, normocephalic. Sclerae anicteric. Buccal mucosa dry. NECK: Supple. CHEST: Rise symmetrical. Breath sounds diminished to bases. HEART: S1, S2. ABDOMEN: Distended, bowel tones hypoactive. EXTREMITIES: Without cyanosis. ASSESSMENT: 1. Severe sepsis status post shock. 2. Acute pancreatitis. 3. Fungal urinary tract infection. 4. Diabetes. 5. Hypertension. 6. History of craniotomy and meningioma with a history of left occipital methicillin-resistant Stap hylococcus aureus positive wound. Repeat cultures have been negative. 7. Acute on chronic kidney disease. PLAN: The patient remains hemodynamically stable. We are going to add fluconazole to the regimen. Continue vancomycin and Merrem. Continue anti-aspiration measures. Follow chest x-ray and recomme ndations of the consultants. Dictated By: JOHNNIE BARCLAY SCRIPT WRITER for GENARO MARIE/DAVIE Conf#: [id number] DID#: [id number]
--- NOTE | 2017-05-08 15:05 | PN ---
DATE: 05/08/2017 PULMONARY CRITICAL CARE PROGRESS NOTE The patient's condition is significantly improved compared to yesterday with improving mental status. The patient does not appear as agitated now. PHYSICAL EXAMINATION: GENERAL: Elderly male, awake, responsive, currently in no distress. VITAL SIGNS: Temperature is 99 degree Fahrenheit, pulse of 93 per minute, blood pressure is 150/80, O2 sat is 97% on 2 liter nasal cannula, urine output is adequate, respiratory rate is 18 to 20 per minute. HEENT: Supple neck, no JVD, no lymphadenopathy, midline trachea, no thyromegaly. Pharynx clear, no neck bruits. There is a dressing applied over the left parietal area. Pupils are equal and reactive to light. Patient has few remaining teeth in the lower jaw. CHEST: Clear to auscultation. HEART: S1, S2 audible. No murmurs, regular rhythm. ABDOMEN: Soft, protuberant. Bowel sounds audible, no organomegaly. EXTREMITIES: 1+ edema involving the right upper extremity. The patient has a stable, well-healed right below knee amputation stump. NEUROLOGIC: Patient is awake and answers questions appropriately. LABORATORY DATA: Today, white count is 19.5, hemoglobin 10.7, platelet count of 143. Sodium 145, potassium 3.8, chloride 108, bicarbonate 23, BUN 63, creatinine 2.9. MEDICATIONS: 1. D5 at 60 mL per hour. 2. Fluconazole 100 mg IV daily. 3. Rocephin 1 gram IV q.24 hours. 4. Vancomycin intravenously dosed by the pharmacy. 5. Albuterol and Atrovent q.6h. 6. Lantus insulin 10 units daily. 7. Dilaudid on a p.r.n. basis. 8. Metoprolol 50 mg q.6 hours. 9. Zofran on a p.r.n. basis. 10. Protonix 40 mg daily. ASSESSMENT AND PLAN: 1. Patient admitted for sepsis, possibly from acute pancreatitis, currently on appropriate broad spectrum antibiotic coverage. 2. History of chronic encephalopathy, baseline status is unknown. The patient , however, has improved clinically over the last 24 hours. 3. Renal insufficiency. 4. Anemia, thrombocytopenia. 5. Peripheral vascular disease, status post right below-knee amputation. 6. History of diabetes and hypertension with significant improvement in ICU. RECOMMENDATIONS: Continue current supportive care. Dictated By: SUSANNAH MENDEZ/DAVIE Conf#: [id number] DID#: [id number] MTDD
--- NOTE | 2017-05-08 16:25 | PN ---
Date/Time of Note Date/Time of Note DATE: 05/08/17 TIME: 16:20 Assessment/Plan Lines/Catheters IV Catheter Type (from [facility]): Peripheral IV High in Place (from [facility]): Yes Assessment/Plan Chief Complaint/Hosp Course 1. Abdominal pain: CT with ?sbo (doubt) vs. ileus and pancreatitis; concern for abdominal compartment syndrome: (improved abdominal distention, tachycardia unchanged); +bowel function; KUB shows no obstruction; pancreatitis resolved -pain management -continue to monitor 2. Sepsis with lactic acidosis; +urine cx -supportive -hannon culture- head shunt drainage sent for culture 3. Pancreatitis: resolved -as above 4. ARF: increasing uop today, cr much improved -judicious fluids -avoid nephrotoxic meds -poss HD per renal 5. Uncontrolled Diabetes: blood sugar labile -optimize sugar control 6. Constipation: +bowel function; abdomen softer improved pain -optimize bowel regimen 8. Electrolyte imbalance -optimize lytes Thank you. Patient seen and examined in collaboration with Dr. Jerome Marie. Problems: Subjective 24 Hr Interval Summary No c/o abdominal pain. Tachycardia resolved. + bowel function. Increased work of breathing. No fevers, chills, sob, congested pain, n/v/d/dysuria. Exam/Review of Systems Vital Signs Vitals Vital Signs Date Time Temp Pulse Resp B/P Pulse Ox O2 Delivery O2 Flow Rate FiO2 05/08/17 12:00 93 05/08/17 10:00 22 153/83 97 Nasal Cannula 05/08/17 08:00 99.2 05/08/17 08:00 8.0 05/04/17 18:32 40 Intake and Output 05/07/17 05/07/17 05/08/17 15:00 23:00 07:00 Intake Total 1000 ml 830 ml 480 ml Output Total 1000 ml 780 ml 755 ml Balance 0 ml 50 ml -275 ml Exam Free Text/Dictation Constitutional: alert, no distress, oriented Psych: min anxiety Head: atraumatic, normocephalic, other (left head wound (shunt) with scant yellow drainage) Eyes: nl lids, nl sclera ENMT: mucosa pink and moist, nl nasal mucosa & septum Neck: non-tender Respiratory: diminished breath sounds; comfortable on nc Cardiovascular: rrr; sr Gastrointestinal: softer, improved distention, non tender, umbilical hernia, no skin discoloration, +bowel sounds No rebound or guarding Musculoskeletal: other: r aka, stump clean Neurological: nl mental status, nl speech Results Result Diagram: 05/08/17 0545 05/08/17 0545 JEB LIRIANO NP May 08, 2017 16:25
--- NOTE | 2017-05-08 17:53 | EN ---
Date/Time of Note Date/Time of Note DATE: 05/08/17 TIME: 17:52 Event Note Medicine Medicine Event Note Patient is confused, remains in the ICU. Patient need IV access as he is receiving multiple meds/antibiotics. The patient has poor IV access, will need PICC line or Midline for access. I recommend this procedure. DOMINGO ARELLANO MD May 08, 2017 17:53
[2017-05-08] MEDS: HYDROmorphONE 1 MG/ML SYG IV PRN (18:16)
--- NOTE | 2017-05-08 19:31 | PN ---
DATE: 05/08/2017 SUBJECTIVE: The patient remains in the intensive care unit, remains in guarded condition. He remai ns slightly tachypneic and tachycardic. The patient seen by speech therapy who recommended n.p.o. If diet is advanced, he needs to be on pureed diet likely with thickener. Patient remains weak. Radhames manzano with worsening leukocytosis, white count is now 19.5 but there are no bands. Diflucan was als o added to his regimen as the patient has yeast in the urine. PHYSICAL EXAMINATION: VITAL SIGNS: Blood pressure is 133/78, pulse is 70, respirations 30, saturation 97% on nasal cannul a, temperature 98.8, T-max is 100.3. GENERAL: The patient is frail, pale. HEENT: Left forehead temporal area wound. Patient is pale. CARDIOVASCULAR: S1 and S2. Slightly tachypneic. LUNGS: Decreased bilaterally. ABDOMEN: Soft, slight tenderness throughout. EXTREMITIES: Right AKA. No significant edema in the lower extremities. Upper extremity trace sheyla a. LABORATORY DATA: White count is 19.5, hemoglobin 10.7, hematocrit 31, platelet count is 143, now no rmal, neutrophils 81%, lymphocytes 5%. Chemistry: Sodium is 145, potassium 3.8, chloride 108, bica rbonate 23, BUN is 63, creatinine 2.92, glucose of 191. Alkaline phosphatase 131. Albumin 2.6. St ool occult blood was negative. Yeast is growing in the urine. Blood culture besides MRSA screening are all negative. Wound culture was negative so far. Chest x-ray dated today shows mild atelectas is at the lung bases, unchanged. There is cardiomegaly. MEDICATIONS: The patient's medications include: 1. Lantus 20 units daily. 2. Diflucan 50 IV daily. 3. Vancomycin dosed per pharmacy. 4. Xopenex as directed. 5. Insulin aspart as directed. 6. D5 normal saline at 60 mL an hour. 7. Lopressor 50 mg every 6 hours. 8. Protonix 40 mg daily. 7. Zyprexa 2.5 b.i.d. 9. Dulcolax p.r.n. 10. Hypoglycemia protocol. 11. Zofran p.r.n. 12. DuoNeb p.r.n. 13. Ativan p.r.n. 14. Vancomycin as directed. ASSESSMENT AND PLAN: This is an unfortunate 67-year-old male with history of meningioma, status post craniotomy, diabetes mellitus, left forehead wound, chronic kidney disease, right above the knee amputation, who presented with pancreatitis, tachycardia, sepsis and metabolic acidosis. 1. Respiratory. The patient remains tachypneic secondary to sepsis. Continue above antibiotic reg imen. Continue O2 support. Continue aspiration precautions. Will follow closely. 2. Cardiovascular. Continue fluid hydration for now. Follow up lactic acid levels. Continue supp ortive care. No need for pressors for now. Tachycardic, but much better. 3. Infectious disease. Currently being treated with vancomycin, Merrem and Diflucan for urinary tr act infection, possible pneumonia, possible intra-abdominal infection as patient presented initially with pancreatitis. 4. Acute pancreatitis, still with vague abdominal pain. May consider scanning his abdomen again if continues to have fevers. Follow up lipase level. Continue gentle hydration. 5. Dysphagia. Advance diet patient's condition improves. 6. Encephalopathy is likely from sepsis, toxic, metabolic. 7. Diabetes mellitus. Continue Lantus 20 units daily. 8. Keep the patient in the intensive care unit as the patient is still not stable. 9. Condition remains guarded. 10. The patient is FULL CODE. 11. Acute renal failure, improved with gentle hydration. No need for dialysis. 12. Psychosis. Continue low-dose Zyprexa. Try to keep patient comfortable at all times. We will follow. Dictated By: DOMINGO GILMORE/DAVIE Conf#: [id number] DID#: [id number]
--- NOTE | 2017-05-08 19:53 | RADRPT ---
PROCEDURE: Portable chest x-ray. CLINICAL INDICATION: 67 years of age, male. Line placement. TECHNIQUE: Portable AP view of the chest. COMPARISON: Chest x-ray from earlier the same day at 07:07 p.m. FINDINGS: There is a left arm PICC line with the tip in the inferior SVC. Tortuous aorta. Enlarged cardiopericardial silhouette. Decreased lung volumes with vascular crowding. Pulmonary vessels are prominent and indistinct that m ay indicate pulmonary edema. There is diffuse increased opacity in the left lung that may indicate i nfection. Negative for pleural effusion or pneumothorax. No acute bony abnormality. IMPRESSION: Left arm PICC line with tip over inferior SVC. Decreased lung volumes with vascular crowding versus pulmonary edema. Left greater than right lung o pacities may indicate infection. Clinical correlation is required. Enlarged cardiopericardial silhouette. RPTAT: HCTS Physician Suresh Date Time Electronically viewed and signed by Physician Suresh on 05/08/2017 19:53 /
--- NOTE | 2017-05-08 20:03 | RADRPT ---
PROCEDURE: Ultrasound guidance for placement of needle in left upper extremity vein. CLINICAL INDICATION: Venous access. TECHNIQUE: Limited sonography of the left upper extremity was performed. Ultrasound images were recorded and s tored in the patient's medical record. COMPARISON: None. FINDINGS: The ultrasound images demonstrate a patent left upper extremity vein. The PICC line was inserted by the PICC line nurse. IMPRESSION: 1. Ultrasound guidance for a needle placement in a left upper extremity vein. 2. The left upper extremity vein is patent. RPTAT: QQ .Ric Walker MD, MD Date Time Electronically viewed and signed by .Ric Walker MD, MD on 05/08/2017 20:02 .R/
--- NOTE | 2017-05-08 20:21 | RADRPT ---
PROCEDURE: US Abdomen and Retroperitoneum. CLINICAL INDICATION: Abdominal pain. TECHNIQUE: Multiple real-time longitudinal and transverse images were acquired of the patient's ab domen and retroperitoneum utilizing a curved array transducer. COMPARISON: No prior studies are available for comparison. FINDINGS: The liver is normal in size and normal in echogenicity. The liver has a normal smooth surface. Ther e is no focal hepatic lesion. Color Doppler and pulsed Doppler sonography demonstrate normal antegra de flow in the portal vein. The gallbladder is normal with no stones or wall thickening. The bile ducts are normal with the common bile duct measuring 4.7 mm in diameter. The spleen is normal in size. There is no focal splenic lesion. The pancreas is not seen due to overlying bowel gas. A small amount of free fluid is noted adjacent to the liver. The right kidney measures 10.4 cm and the left kidney measures 18.0 cm. There is no right renal mass. There is a benign cyst in the mid left kidney measuring 6.6 x 5.7 x 6. 4 cm and a benign cyst in the lower left kidney measuring 9.9 x 9.4 x 10.6 cm. Both kidneys are hype rechoic consistent with medical renal disease. The left kidney is enlarged due to the large cysts. There is no hydronephrosis or calculus. The abdominal aorta is not dilated. The inferior vena cava is unremarkable. IMPRESSION: 1. Pancreas not visualized. 2. Small amount of free fluid adjacent to the liver. 3. Benign left renal cysts. 4. Bilateral hyperechoic kidneys consistent with medical renal disease. 5. Otherwise unremarkable study. RPTAT: QQ .Ric Walker MD, MD Date Time Electronically viewed and signed by .Ric Walker MD, MD on 05/08/2017 20:21 .R/
--- NOTE | 2017-05-08 20:50 | RADRPT ---
PROCEDURE: XR Chest. CLINICAL INDICATION: Check PICC line position. TECHNIQUE: Single frontal view. 1854 hours. COMPARISON: 05/08/2017. 0623 hours. FINDINGS: There is a left arm PICC line with the tip in the upper superior vena cava. There are low lung volu mes and mild atelectasis at the lung bases. The heart is enlarged. There is no pleural effusion. There is no pneumothorax. IMPRESSION: 1. Left arm PICC line tip in the upper superior vena cava. 2. Low lung volumes and mild atelectasis at the lung bases, unchanged. 3. Cardiomegaly. RPTAT: QQ .Ric Walker MD, MD Date Time Electronically viewed and signed by .Ric Walker MD, on 05/08/2017 20:50 .R/
--- NOTE | 2017-05-08 20:50 | RADRPT ---
PROCEDURE: XR Chest. CLINICAL INDICATION: Check PICC line position. TECHNIQUE: Single frontal view. 1856 hours COMPARISON: 05/08/2017. 1854 hours FINDINGS: There is a left arm PICC line with the tip in the upper superior vena cava. There are low lung volu mes and mild atelectasis at the lung bases. The heart is enlarged. There is no pleural effusion. There is no pneumothorax. IMPRESSION: 1. Left arm PICC line tip in the upper superior vena cava. 2. Low lung volumes and mild atelectasis at the lung bases, unchanged. 3. Cardiomegaly. RPTAT: QQ .Ric Walker MD, MD Date Time Electronically viewed and signed by .Ric Walker MD, MD on 05/08/2017 20:50 .R/
--- NOTE | 2017-05-08 20:51 | RADRPT ---
PROCEDURE: XR Chest. CLINICAL INDICATION: Check PICC line position. TECHNIQUE: Single frontal view. 1903 hours. COMPARISON: 05/08/2017. 1856 hours. FINDINGS: There is a left arm PICC line with the tip in the upper superior vena cava. There are low lung volu mes and mild atelectasis at the lung bases. The heart is enlarged. There is no pleural effusion. There is no pneumothorax. IMPRESSION: 1. Left arm PICC line tip in the upper superior vena cava. 2. Low lung volumes and mild atelectasis at the lung bases, unchanged. 3. Cardiomegaly. RPTAT: QQ .Ric Walker MD, MD Date Time Electronically viewed and signed by .Ric Walker MD, on 05/08/2017 20:51 .R/
--- NOTE | 2017-05-08 20:52 | RADRPT ---
PROCEDURE: XR Chest. CLINICAL INDICATION: Check PICC line position. TECHNIQUE: Single frontal view. 1906 hours COMPARISON: 05/08/2017. 1902 hours FINDINGS: There is a left arm PICC line with the tip in the upper superior vena cava. There are low lung volu mes and mild atelectasis at the lung bases. The heart is enlarged. There is no pleural effusion. There is no pneumothorax. IMPRESSION: 1. Left arm PICC line tip in the upper superior vena cava. 2. Low lung volumes and mild atelectasis at the lung bases, unchanged. 3. Cardiomegaly. RPTAT: QQ .Ric Walker MD, MD Date Time Electronically viewed and signed by .Ric Walker MD, MD on 05/08/2017 20:52 .R/
--- NOTE | 2017-05-08 20:53 | RADRPT ---
PROCEDURE: XR Chest. CLINICAL INDICATION: Check PICC line position. TECHNIQUE: Single frontal view. 1908 hours. COMPARISON: 05/08/2017. 1907 hours. FINDINGS: There is a left arm PICC line with the tip in the upper superior vena cava. There are low lung volu mes and mild atelectasis at the lung bases. The heart is enlarged. There is no pleural effusion. There is no pneumothorax. IMPRESSION: 1. Left arm PICC line tip in the upper superior vena cava. 2. Low lung volumes and mild atelectasis at the lung bases, unchanged. 3. Cardiomegaly. RPTAT: QQ .Ric Walker MD, MD Date Time Electronically viewed and signed by .Ric Walker MD, on 05/08/2017 20:53 .R/
[2017-05-08] MEDS: MEROPENEM 1 GM/50ML(PMX) 50 ML IVPB SCH (21:03)
[2017-05-09] VITALS (34 sets, daily range): BP systolic 110–157; BP diastolic 60–106; PULSE 67–103; RESP 14–30
[2017-05-09] MEDS: METOPROLOL 25 MG TAB PO SCH ×4 (00:13→17:22)
[2017-05-09] MEDS: INSULIN ASPART [NOVOLOG] 3 ML PEN SC SCH ×6 (00:15→20:48)
[2017-05-09] MEDS: HYDROmorphONE 1 MG/ML SYG IV PRN ×4 (01:42→20:18)
[2017-05-09] MEDS: DEXTROSE 5%-0.9% NACL 1,000 ML IV SCH (05:12)
[2017-05-09] MEDS: PANTOPRAZOLE (EC) 40 MG TAB PO SCH (05:13)
[2017-05-09 06:36] LABS: ABNORMAL IP MESSAGE 1; BASOPHILS % 0.2 % (0.0-2.0); EOSINOPHILS # 0.5 10^3/ul (0.0-0.5); EOSINOPHILS % 2.5 % (0.0-7.0); HEMOGLOBIN 9.2 g/dl (14.0-18.0); LYMPHOCYTES # 1.3 10^3/ul (0.8-2.9); LYMPHOCYTES % 6.1 % (15.0-51.0); MEAN CORPUSCULAR HEMOGLOBIN 30.8 pg (29.0-33.0); MEAN CORPUSCULAR HGB CONC 32.9 g/dl (32.0-37.0); MEAN CORPUSCULAR VOLUME 93.6 fl (82.0-101.0); MEAN PLATELET VOLUME 11.3 fl (7.4-10.4); MONOCYTE # 0.8 10^3/ul (0.3-0.9); MONOCYTES % 3.8 % (0.0-11.0); NEUTROPHIL # 17.4 10^3/ul (1.6-7.5); NEUTROPHILS % 81.2 % (39.0-77.0); PLATELET COUNT 141 10^3/UL (140-415); POSITIVE DIFF @See below; RED BLOOD COUNT 2.99 10^6/ul (4.70-6.10); RED CELL DISTRIBUTION WIDTH 14.2 % (11.5-14.5); WHITE BLOOD COUNT 21.4 10^3/ul (4.8-10.8)
[2017-05-09 07:12] LABS: ALBUMIN/GLOBULIN RATIO 0.71; BILIRUBIN,INDIRECT 0.2 mg/dl (0-1.1); BILIRUBIN,TOTAL 0.2 mg/dl (0.2-1.3); CALCIUM 8.4 mg/dl (8.4-10.2); CREATININE 2.19 mg/dl (0.61-1.24); POTASSIUM 3.8 mmol/L (3.5-5.1); TOTAL PROTEIN 4.8 g/dl (6.1-8.1)
[2017-05-09 07:30] LABS: ANISOCYTOSIS 1+ (0-0); EOSINOPHILS % (M) 3 % (0-7); METAMYELOCYTES %M 1 % (0-0); MONOCYTES % (M) 7 % (0-11); MYELOCYTES % (M) 1 % (0-0); PLATELET ESTIMATE NORMAL; POLYCHROMASIA 2+ (0-0)
[2017-05-09] MEDS: INSULIN GLARGINE [LANtus] 3 ML PEN SC SCH (08:54)
[2017-05-09] MEDS: OLANZAPINE 2.5 MG TAB PO SCH ×2 (08:54→20:18)
--- NOTE | 2017-05-09 10:03 | CONS ---
Date/Time of Note Date/Time of Note DATE: 05/09/17 TIME: 10:02 Consult Date/Type/Reason Admit Date/Time May 02, 2017 at 14:03 Initial Consult Date 05/03/17 Type of Consultation: nephrology Ordering Provider: BRYAN MINOR DO Subjective d/w pulm arf is slightly improved. His UOP is increasing no nausea, vomiting, new rash, hematuria, melena, diaphoresis or fever cxr reviewed PHYSICAL EXAMINATION: HEENT: Normocephalic, atraumatic. No acute respiratory distress. Eyes: Pupils are equal. CARDIOVASCULAR: Tachycardic. PULMONARY: With no wheeze anteriorly. GASTROINTESTINAL: Distended, positive tender to palpation. Very diffuse tenderness and mild guarding, no rebound. EXTREMITIES: Positive right lower extremity BKA. NEUROLOGIC: He is awake, responds appropriately, with one-sided weakness. PSYCHIATRIC: Appears to be calm. Objective Vital Signs Date Time Temp Pulse Resp B/P Pulse Ox O2 Delivery O2 Flow Rate FiO2 05/09/17 09:30 96 30 148/84 96 Nasal Cannula 05/09/17 08:00 98.4 05/09/17 02:03 8.0 Intake and Output 05/08/17 05/08/17 05/09/17 15:00 23:00 07:00 Intake Total 780 ml 500 ml 590 ml Output Total 1100 ml 680 ml 490 ml Balance -320 ml -180 ml 100 ml Results/Medications Result Diagram: 05/09/17 0500 05/09/17 0500 Results 24 hrs Laboratory Tests Test 05/08/17 13:59 05/08/17 18:24 05/08/17 21:02 05/09/17 00:13 Bedside Glucose 211 153 145 151 Test 05/09/17 05:00 05/09/17 05:15 05/09/17 08:50 White Blood Count 21.4 H Red Blood Count 2.99 L Hemoglobin 9.2 L Hematocrit 28.0 L Mean Corpuscular Volume 93.6 Mean Corpuscular Hemoglobin 30.8 Mean Corpuscular Hemoglobin Concent 32.9 Red Cell Distribution Width 14.2 Platelet Count 141 Mean Platelet Volume 11.3 H Neutrophils % 81.2 H Segmented Neutrophils % (Manual) 73 Band Neutrophils % (Manual) 11 H Lymphocytes % 6.1 L Lymphocytes % (Manual) 4 L Monocytes % 3.8 Monocytes % (Manual) 7 Eosinophils % 2.5 Eosinophils % (Manual) 3 Basophils % 0.2 Metamyelocytes % (manual) 1 H Myelocytes % (Manual) 1 H Nucleated Red Blood Cells % 0.0 Neutrophils # 17.4 H Neutrophils # (Manual) 16.1 H Band Neutrophils # 2.3 H Absolute Lymphocytes (Manual) 0.8 Lymphocytes # 1.3 Monocytes # 0.8 Absolute Monocytes (Manual) 1.4 H Eosinophils # 0.5 Basophils # 0.0 Metamyelocytes # 0.2 H Myelocytes # 0.2 H Nucleated Red Blood Cells # 0.0 Platelet Estimate NORMAL Polychromasia 2+ Anisocytosis 1+ Erythrocyte Sedimentation Rate 65 H Sodium Level 143 Potassium Level 3.8 Chloride Level 110 Carbon Dioxide Level 28 Anion Gap 9 # Blood Urea Nitrogen 62 H Creatinine 2.19 H Glucose Level 221 H Lactic Acid Level 1.1 Calcium Level 8.4 Total Bilirubin 0.2 Direct Bilirubin 0.00 Indirect Bilirubin 0.2 Aspartate Amino Transf (AST/SGOT) 22 Alanine Aminotransferase (ALT/SGPT) 26 Alkaline Phosphatase 105 Total Protein 4.8 L Albumin 2.0 L Globulin 2.80 Albumin/Globulin Ratio 0.71 Lipase 48 Bedside Glucose 241 H 190 Medications Current Medications Ondansetron HCl (Zofran Inj) 4 mg Q6H PRN IV NAUSEA AND/OR VOMITING Last administered on 05/03/17 08:47; Admin Dose 4 MG; Start 05/02/17 at 19:00 Lorazepam 0.5 mg 0.5 mg Q2H PRN IV ANXIETY Last administered on 05/06/17 16: 03; Admin Dose 0.5 MG; Start 05/02/17 at 19:00 Meropenem/Sodium Chloride (Merrem 1 Gm/50 ml (Pmx)) 50 ml @ 100 mls/hr Q24H IVPB Last administered on 05/08/17 21:03; Admin Dose 100 MLS/HR; Start at 20:00 Hydromorphone HCl (Dilaudid) 1 mg Q4H PRN IV PAIN LEVEL 7-10 Last administered on 05/09/17 06:01; Admin Dose 1 MG; Start 05/02/17 at 23:00 Miscellaneous Information 1 ea NOTE XX ; Start 05/03/17 at 14:00 Glucose (Glutose) 15 gm Q15M PRN PO DECREASED GLUCOSE; Start 05/03/17 at 14:00 Glucose (Glutose) 22.5 gm Q15M PRN PO DECREASED GLUCOSE; Start 05/03/17 at 14: 00 Dextrose (D50w Syringe) 25 ml Q15M PRN IV DECREASED GLUCOSE; Start 05/03/17 at 14:00 Dextrose (D50w Syringe) 50 ml Q15M PRN IV DECREASED GLUCOSE; Start 05/03/17 at 14:00 Glucagon (Glucagen) 1 mg Q15M PRN IM DECREASED GLUCOSE; Start 05/03/17 at 14:00 Glucose (Glutose) 15 gm Q15M PRN BUCCAL DECREASED GLUCOSE; Start 05/03/17 at 14 :00 Bisacodyl 10 mg 10 mg DAILY PRN [place] CONSTIPATION Last administered on 05/04/17 17:20; Admin Dose 10 MG; Start 05/03/17 at 17:00 Phenylephrine HCl/ Dextrose (Dean-Syneph/D5W) 250 ml @ 0 mls/hr TITRATE IV Last administered on 05/04/17 17:15; Admin Dose 20 MLS/HR; Start 05/03/17 at 17:00 Miscellaneous Information (Pending [facility] Order For Wound Care) This patient bustillo... PRN PRN XX WOUND CARE; Start 05/03/17 at 19:00 Olanzapine (Zyprexa) 2.5 mg BID PO Last administered on 05/09/17 08:54; Admin Dose 2.5 MG; Start 05/06/17 at 21:00 Pantoprazole (Protonix Tab) 40 mg DAILY@06 PO Last administered on 05/09/17 05:13; Admin Dose 40 MG; Start 05/07/17 at 06:00 Metoprolol Tartrate 50 mg 50 mg Q6 PO Last administered on 05/09/17 05:13; Admin Dose 50 MG; Start 05/07/17 at 12:00 Dextrose/Sodium Chloride (D5-NS) 1,000 ml @ 60 mls/hr [id number] IV Last administered on 05/09/17 05:12; Admin Dose 60 MLS/HR; Start 05/07/17 at 18:30 Insulin Aspart NOVOLOG *MODERATE* ALGORI... Q4 SC Last administered on 08:53; Admin Dose 4 UNIT; Start 05/07/17 at 21:00 Vancomycin HCl/ Sodium Chloride (Vancocin/NS) 250 ml @ 83.333 mls/ hr Q48H IVPB Last administered on 05/08/17 10:45; Admin Dose 83.333 MLS/HR; Start at 09:30 Insulin Glargine 20 unit 20 unit DAILY@08 SC Last administered on 05/09/17 08 :54; Admin Dose 20 UNIT; Start 05/09/17 at 08:00 Fluconazole/ Sodium Chloride (Diflucan 100 Mg/ NS (Pmx)) 50 ml @ 50 mls/hr Q24H IVPB Last administered on 05/08/17 14:02; Admin Dose 50 MLS/HR; Start at 13:30 Assessment/Plan Chief Complaint/Hosp Course 1. ARF due to ATN. his uop is increasing and serum creatinine is slightly lower. imaging studies were reviewed. continue IVF and pressors. keep MAP > 60. will hold off on HD for now . 2. Severe sepsis and septic shock. on abx and pressors 3. Severe pancreatitis.- monitor lipase, ? restart diet 4. Diabetes.bs reviewed 7. Severe metabolic acidosis. improving. ABG reviewed 8. Hypertension, currently in shock and hypotensive. 9. History of dyslipidemia. 10. History of below-knee amputation. 11. History of craniotomy and meningioma, status post craniotomy. 12. History of seizure disorder. Problems: PADMAJA ESQUIVEL MD May 09, 2017 10:02
--- NOTE | 2017-05-09 11:07 | CONS ---
Date/Time of Note Date/Time of Note DATE: 05/09/17 TIME: 11:05 Assessment/Plan Assessment/Plan Additional Assessment/Plan Assessment and recommendations; 1. Patient admitted with sepsis and acute pancreatitis with significant clinical improvement. 2. Peripheral vascular disease. 3. Possibly chronic encephalopathy. 4. Renal insufficiency. 5. Significant improvement in mental status. Continue current supportive care. [facility] Consultation Date/Type/Reason Admit Date/Time May 02, 2017 at 14:03 Initial Consult Date 05/03/17 Type of Consultation: Pulmonary/critical care Referring Provider: BRYAN MINOR DO 24 HR Interval Summary Free Text/Dictation Patient's condition is continually improving. Mental status is markedly improved. Patient is not agitated anymore. Answering questions appropriately. Has remained hemodynamically stable. Exam/Review of Systems Vital Signs Vitals Vital Signs Date Time Temp Pulse Resp B/P Pulse Ox O2 Delivery O2 Flow Rate FiO2 05/09/17 10:00 103 28 139/81 97 Nasal Cannula 05/09/17 08:00 2.0 05/09/17 08:00 98.4 Intake and Output 05/08/17 05/08/17 05/09/17 15:00 23:00 07:00 Intake Total 780 ml 500 ml 650 ml Output Total 1100 ml 680 ml 490 ml Balance -320 ml -180 ml 160 ml Exam HEENT exam; supple neck, no JVD. No lymphadenopathy. Midline trachea. No thyromegaly. There is a dressing applied over the left parietal area. Patient has fair dentition. Has few missing teeth in lower jaw. Chest exam; clear to auscultation. S1-S2 audible, no murmurs. Regular rhythm. Abdomen exam; soft, no organomegaly. Bowel sounds audible. Extremity exam; no edema. Patient has a stable right below-knee amputation stump. [employer] exam; no focal deficit. Results Result Diagram: 05/09/17 0500 05/09/17 0500 Results 24 hrs Laboratory Tests Test 05/08/17 13:59 05/08/17 18:24 05/08/17 21:02 05/09/17 00:13 Bedside Glucose 211 153 145 151 Test 05/09/17 05:00 05/09/17 05:15 05/09/17 08:50 White Blood Count 21.4 H Red Blood Count 2.99 L Hemoglobin 9.2 L Hematocrit 28.0 L Mean Corpuscular Volume 93.6 Mean Corpuscular Hemoglobin 30.8 Mean Corpuscular Hemoglobin Concent 32.9 Red Cell Distribution Width 14.2 Platelet Count 141 Mean Platelet Volume 11.3 H Neutrophils % 81.2 H Segmented Neutrophils % (Manual) 73 Band Neutrophils % (Manual) 11 H Lymphocytes % 6.1 L Lymphocytes % (Manual) 4 L Monocytes % 3.8 Monocytes % (Manual) 7 Eosinophils % 2.5 Eosinophils % (Manual) 3 Basophils % 0.2 Metamyelocytes % (manual) 1 H Myelocytes % (Manual) 1 H Nucleated Red Blood Cells % 0.0 Neutrophils # 17.4 H Neutrophils # (Manual) 16.1 H Band Neutrophils # 2.3 H Absolute Lymphocytes (Manual) 0.8 Lymphocytes # 1.3 Monocytes # 0.8 Absolute Monocytes (Manual) 1.4 H Eosinophils # 0.5 Basophils # 0.0 Metamyelocytes # 0.2 H Myelocytes # 0.2 H Nucleated Red Blood Cells # 0.0 Platelet Estimate NORMAL Polychromasia 2+ Anisocytosis 1+ Erythrocyte Sedimentation Rate 65 H Sodium Level 143 Potassium Level 3.8 Chloride Level 110 Carbon Dioxide Level 28 Anion Gap 9 # Blood Urea Nitrogen 62 H Creatinine 2.19 H Glucose Level 221 H Lactic Acid Level 1.1 Calcium Level 8.4 Total Bilirubin 0.2 Direct Bilirubin 0.00 Indirect Bilirubin 0.2 Aspartate Amino Transf (AST/SGOT) 22 Alanine Aminotransferase (ALT/SGPT) 26 Alkaline Phosphatase 105 Total Protein 4.8 L Albumin 2.0 L Globulin 2.80 Albumin/Globulin Ratio 0.71 Lipase 48 Bedside Glucose 241 H 190 Medications Medications Current Medications Ondansetron HCl (Zofran Inj) 4 mg Q6H PRN IV NAUSEA AND/OR VOMITING Last administered on 05/03/17 08:47; Admin Dose 4 MG; Start 05/02/17 at 19:00 Lorazepam 0.5 mg 0.5 mg Q2H PRN IV ANXIETY Last administered on 05/06/17 16: 03; Admin Dose 0.5 MG; Start 05/02/17 at 19:00 Meropenem/Sodium Chloride (Merrem 1 Gm/50 ml (Pmx)) 50 ml @ 100 mls/hr Q24H IVPB Last administered on 05/08/17 21:03; Admin Dose 100 MLS/HR; Start at 20:00 Hydromorphone HCl (Dilaudid) 1 mg Q4H PRN IV PAIN LEVEL 7-10 Last administered on 05/09/17 06:01; Admin Dose 1 MG; Start 05/02/17 at 23:00 Miscellaneous Information 1 ea NOTE XX ; Start 05/03/17 at 14:00 Glucose (Glutose) 15 gm Q15M PRN PO DECREASED GLUCOSE; Start 05/03/17 at 14:00 Glucose (Glutose) 22.5 gm Q15M PRN PO DECREASED GLUCOSE; Start 05/03/17 at 14: 00 Dextrose (D50w Syringe) 25 ml Q15M PRN IV DECREASED GLUCOSE; Start 05/03/17 at 14:00 Dextrose (D50w Syringe) 50 ml Q15M PRN IV DECREASED GLUCOSE; Start 05/03/17 at 14:00 Glucagon (Glucagen) 1 mg Q15M PRN IM DECREASED GLUCOSE; Start 05/03/17 at 14:00 Glucose (Glutose) 15 gm Q15M PRN BUCCAL DECREASED GLUCOSE; Start 05/03/17 at 14 :00 Bisacodyl 10 mg 10 mg DAILY PRN [place] CONSTIPATION Last administered on 05/04/17 17:20; Admin Dose 10 MG; Start 05/03/17 at 17:00 Phenylephrine HCl/ Dextrose (Dean-Syneph/D5W) 250 ml @ 0 mls/hr TITRATE IV Last administered on 05/04/17 17:15; Admin Dose 20 MLS/HR; Start 05/03/17 at 17:00 Miscellaneous Information (Pending [facility] Order For Wound Care) This patient bustillo... PRN PRN XX WOUND CARE; Start 05/03/17 at 19:00 Olanzapine (Zyprexa) 2.5 mg BID PO Last administered on 05/09/17 08:54; Admin Dose 2.5 MG; Start 05/06/17 at 21:00 Pantoprazole (Protonix Tab) 40 mg DAILY@06 PO Last administered on 05/09/17 05:13; Admin Dose 40 MG; Start 05/07/17 at 06:00 Metoprolol Tartrate 50 mg 50 mg Q6 PO Last administered on 05/09/17 05:13; Admin Dose 50 MG; Start 05/07/17 at 12:00 Dextrose/Sodium Chloride (D5-NS) 1,000 ml @ 60 mls/hr [id number] IV Last administered on 05/09/17 05:12; Admin Dose 60 MLS/HR; Start 05/07/17 at 18:30 Insulin Aspart NOVOLOG *MODERATE* ALGORI... Q4 SC Last administered on 08:53; Admin Dose 4 UNIT; Start 05/07/17 at 21:00 Vancomycin HCl/ Sodium Chloride (Vancocin/NS) 250 ml @ 83.333 mls/ hr Q48H IVPB Last administered on 05/08/17 10:45; Admin Dose 83.333 MLS/HR; Start at 09:30 Insulin Glargine 20 unit 20 unit DAILY@08 SC Last administered on 05/09/17 08 :54; Admin Dose 20 UNIT; Start 05/09/17 at 08:00 Fluconazole/ Sodium Chloride (Diflucan 100 Mg/ NS (Pmx)) 50 ml @ 50 mls/hr Q24H IVPB Last administered on 05/08/17 14:02; Admin Dose 50 MLS/HR; Start at 13:30 SUSANNAH GUERRIER May 09, 2017 11:07
[2017-05-09] MEDS: MEROPENEM 1 GM/50ML(PMX) 50 ML IVPB SCH ×2 (12:09→21:06)
[2017-05-09] MEDS: ONDANSETRON 4 MG INJ IV PRN (12:58)
--- NOTE | 2017-05-09 14:55 | CONS ---
Date/Time of Note Date/Time of Note DATE: 05/09/17 TIME: 14:53 Consult Date/Type/Reason Admit Date/Time May 02, 2017 at 14:03 Initial Consult Date 05/03/17 Type of Consultation: card Ordering Provider: BRYAN MINOR DO Subjective CARDIOLOGY FOLLOW UP NOTE: S: d/w staff and rhythm was reviewed. pt remains in NSR and BP has been well controlled now he has less abdominal pain. he denies any cp or sob to me. he is still in ICU he is able to eat now O: General: in no distress HEENT: NC/AT. pupils are equal. round. NECK: NO JVD. no stridor. CV: tachycardic. . systolic murmur; no gallop or rubs. PULM: no wheezing or rhonchi. GI: mild tenderness. no rebound. no guarding Extremity: s/p R LE amputation. neuro: awake and alert. with right sided weakness Psych: calm and pleasant rectal: deferred : normal male ECHO Personally reviewed: 1. Hyperdynamic left ventricular systolic function. Normal left ventricular cavity size. Mild concentric left ventricular hypertrophy. Ejection fraction is visually estimated at 70 %. Abnormal Diastolic Function. 2. The left atrium is normal in size. 3. Mild mitral leaflet calcification. Mild mitral annular calcification. Trace mitral regurgitation. 4. No significant aortic stenosis or insufficiency. Aortic cusps appear mildly calcified. Non coronary cusp appears moderately calcified. 5. Normal appearance of the tricuspid valve. Estimated peak PA systolic pressure 56 mmHg. There is mild tricuspid regurgitation. 6. The IVC is not well visualized. Objective Vital Signs Date Time Temp Pulse Resp B/P Pulse Ox O2 Delivery O2 Flow Rate FiO2 05/09/17 12:00 86 05/09/17 12:00 98.0 16 128/68 96 Nasal Cannula 05/09/17 08:00 2.0 Intake and Output 05/08/17 05/08/17 05/09/17 15:00 23:00 07:00 Intake Total 780 ml 500 ml 650 ml Output Total 1100 ml 680 ml 490 ml Balance -320 ml -180 ml 160 ml Results/Medications Result Diagram: 05/09/17 0500 05/09/17 0500 Results 24 hrs Laboratory Tests Test 05/08/17 18:24 05/08/17 21:02 05/09/17 00:13 05/09/17 05:00 Bedside Glucose 153 145 151 White Blood Count 21.4 H Red Blood Count 2.99 L Hemoglobin 9.2 L Hematocrit 28.0 L Mean Corpuscular Volume 93.6 Mean Corpuscular Hemoglobin 30.8 Mean Corpuscular Hemoglobin Concent 32.9 Red Cell Distribution Width 14.2 Platelet Count 141 Mean Platelet Volume 11.3 H Neutrophils % 81.2 H Segmented Neutrophils % (Manual) 73 Band Neutrophils % (Manual) 11 H Lymphocytes % 6.1 L Lymphocytes % (Manual) 4 L Monocytes % 3.8 Monocytes % (Manual) 7 Eosinophils % 2.5 Eosinophils % (Manual) 3 Basophils % 0.2 Metamyelocytes % (manual) 1 H Myelocytes % (Manual) 1 H Nucleated Red Blood Cells % 0.0 Neutrophils # 17.4 H Neutrophils # (Manual) 16.1 H Band Neutrophils # 2.3 H Absolute Lymphocytes (Manual) 0.8 Lymphocytes # 1.3 Monocytes # 0.8 Absolute Monocytes (Manual) 1.4 H Eosinophils # 0.5 Basophils # 0.0 Metamyelocytes # 0.2 H Myelocytes # 0.2 H Nucleated Red Blood Cells # 0.0 Platelet Estimate NORMAL Polychromasia 2+ Anisocytosis 1+ Erythrocyte Sedimentation Rate 65 H Sodium Level 143 Potassium Level 3.8 Chloride Level 110 Carbon Dioxide Level 28 Anion Gap 9 # Blood Urea Nitrogen 62 H Creatinine 2.19 H Glucose Level 221 H Lactic Acid Level 1.1 Calcium Level 8.4 Total Bilirubin 0.2 Direct Bilirubin 0.00 Indirect Bilirubin 0.2 Aspartate Amino Transf (AST/SGOT) 22 Alanine Aminotransferase (ALT/SGPT) 26 Alkaline Phosphatase 105 Total Protein 4.8 L Albumin 2.0 L Globulin 2.80 Albumin/Globulin Ratio 0.71 Lipase 48 Test 05/09/17 05:15 05/09/17 08:50 05/09/17 12:08 Bedside Glucose 241 H 190 259 H Medications Current Medications Ondansetron HCl (Zofran Inj) 4 mg Q6H PRN IV NAUSEA AND/OR VOMITING Last administered on 05/09/17 12:58; Admin Dose 4 MG; Start 05/02/17 at 19:00 Lorazepam (Ativan) 0.5 mg Q2H PRN IV ANXIETY Last administered on 05/06/17 16 :03; Admin Dose 0.5 MG; Start 05/02/17 at 19:00 Hydromorphone HCl (Dilaudid) 1 mg Q4H PRN IV PAIN LEVEL 7-10 Last administered on 05/09/17 13:07; Admin Dose 1 MG; Start 05/02/17 at 23:00 Miscellaneous Information 1 ea NOTE XX ; Start 05/03/17 at 14:00 Glucose (Glutose) 15 gm Q15M PRN PO DECREASED GLUCOSE; Start 05/03/17 at 14:00 Glucose (Glutose) 22.5 gm Q15M PRN PO DECREASED GLUCOSE; Start 05/03/17 at 14: 00 Dextrose (D50w Syringe) 25 ml Q15M PRN IV DECREASED GLUCOSE; Start 05/03/17 at 14:00 Dextrose (D50w Syringe) 50 ml Q15M PRN IV DECREASED GLUCOSE; Start 05/03/17 at 14:00 Glucagon (Glucagen) 1 mg Q15M PRN IM DECREASED GLUCOSE; Start 05/03/17 at 14:00 Glucose (Glutose) 15 gm Q15M PRN BUCCAL DECREASED GLUCOSE; Start 05/03/17 at 14 :00 Bisacodyl 10 mg [address] CONSTIPATION Last administered on 05/04/17 17:20; Admin Dose 10 MG; Start 05/03/17 at 17:00 Phenylephrine HCl/ Dextrose (Dean-Syneph/D5W) 250 ml @ 0 mls/hr TITRATE IV Last administered on 05/04/17 17:15; Admin Dose 20 MLS/HR; Start 05/03/17 at 17:00 [facility] This patient bustillo... PRN PRN XX WOUND CARE; Start 05/03/17 at 19:00 Olanzapine (Zyprexa) 2.5 mg BID PO Last administered on 05/09/17 08:54; Admin Dose 2.5 MG; Start 05/06/17 at 21:00 Pantoprazole (Protonix Tab) 40 mg DAILY@06 PO Last administered on 05/09/17 05:13; Admin Dose 40 MG; Start 05/07/17 at 06:00 Metoprolol Tartrate 50 mg 50 mg Q6 PO Last administered on 05/09/17 12:07; Admin Dose 50 MG; Start 05/07/17 at 12:00 Dextrose/Sodium Chloride (D5-NS) 1,000 ml @ 60 mls/hr [id number] IV Last administered on 05/09/17 05:12; Admin Dose 60 MLS/HR; Start 05/07/17 at 18:30 Insulin Aspart NOVOLOG *MODERATE* ALGORI... Q4 SC Last administered on 12:10; Admin Dose 6 UNIT; Start 05/07/17 at 21:00 Vancomycin HCl/ Sodium Chloride (Vancocin/NS) 250 ml @ 83.333 mls/ hr Q48H IVPB Last administered on 05/08/17 10:45; Admin Dose 83.333 MLS/HR; Start at 09:30 Insulin Glargine 20 unit 20 unit DAILY@08 SC Last administered on 05/09/17 08 :54; Admin Dose 20 UNIT; Start 05/09/17 at 08:00 Fluconazole/ Sodium Chloride 50 ml @ 50 mls/hr Q24H IVPB Last administered on 05/08/17 14:02; Admin Dose 50 MLS/HR; Start 05/08/17 at 13:30 Meropenem/Sodium Chloride (Merrem 1 Gm/50 ml (Pmx)) 50 ml @ 100 mls/hr Q12 IVPB Last administered on 05/09/17 12:09; Admin Dose 100 MLS/HR; Start 05/09 at 11:30 Miscellaneous Information (*Rx Drug Level Order Reminder*) VANCO RANDOM LEVEL... ONCE ONCE XX ; Start 05/10/17 at 05:00; Stop 05/10/17 at 05:01 Assessment/Plan Chief Complaint/Hosp Course 1. Sinus tachycardia secondary to below. 2. Severe sepsis and septic shock. 3. Severe pancreatitis. 4. Diabetes. 7. Severe metabolic acidosis. 8. HX of Hypertension, currently in shock and hypotensive. 9. History of dyslipidemia. 10. History of RLE amputation. 11. History of craniotomy and meningioma, status post craniotomy. 12. History of seizure disorder. 13. JESUSITA on CKD. :improving now 14. hypo Na. 15. mildly abnormal trop due to above 16. HTN RECOMMENDATIONS: Antibiotic is managed as per infectious disease and Dr. Vincent. echo reviewed and did not show any evidence of LV dysfunction or effusion to explain the pt's tachycardia Electrolytes will be checked periodically and adjusted. cont Insulin. cont metoprlol at current dose or 100 bid f.u with renal consultants rec. diuresis prn to be adjusted by renal ok to transfer out of ICU from cardiac stand point THANK YOU CARMEN MELO MD [facility]. Problems: CARMEN MELO MD May 09, 2017 14:55
[2017-05-09] MEDS: FLUCONAZOLE 100 MG/NS (PMX) 50 ML IVPB SCH (15:26)
--- NOTE | 2017-05-09 16:19 | PN ---
Date/Time of Note Date/Time of Note DATE: 05/09/17 TIME: 16:12 Assessment/Plan Lines/Catheters IV Catheter Type (from [facility]): PICC Line High in Place (from [facility]): Yes Assessment/Plan Chief Complaint/Hosp Course 1. Abdominal pain 2nd pancreatitis with ileus. Worsening leukocytosis -pain management -continue to monitor -abx -repeat imaging 2. Sepsis with lactic acidosis; +Urine cx, ? other. Improving except worsening leukocytosis -supportive -hannon culture- head shunt drainage sent for culture -as above 3. BMI 29 -eventual diet/exercise optimization 4. ARF: increasing uop today, cr much improved -judicious fluids -avoid nephrotoxic meds -poss HD per renal 5. Uncontrolled Diabetes: blood sugar labile -optimize sugar control -eventual diet optimization 6. Constipation/Ileus: Improved with bowel function; -optimize bowel regimen 8. Electrolyte imbalance -optimize lytes Thank you, Problems: Subjective 24 Hr Interval Summary No abdominal pain. Tachycardia resolved. Bowel function. Increased work of breathing improved. No fevers, chills, sob, congested cough,sz, rash, bustillo, visual or neuro changes. No n/v/d/dysuria. Exam/Review of Systems Vital Signs Vitals Vital Signs Date Time Temp Pulse Resp B/P Pulse Ox O2 Delivery O2 Flow Rate FiO2 05/09/17 15:30 74 18 122/70 100 05/09/17 15:00 Nasal Cannula 05/09/17 12:00 98.0 05/09/17 08:00 2.0 Intake and Output 05/08/17 05/08/17 05/09/17 15:00 23:00 07:00 Intake Total 780 ml 500 ml 650 ml Output Total 1100 ml 680 ml 490 ml Balance -320 ml -180 ml 160 ml Exam Free Text/Dictation Constitutional: alert, no distress, oriented Psych: min anxiety Head: atraumatic, normocephalic, other (left head wound (shunt) with scant yellow drainage) Eyes: nl lids, nl sclera ENMT: mucosa pink and moist, nl nasal mucosa & septum Neck: non-tender, no jvd, supple Respiratory: normal resp effort, no wheezing Cardiovascular: s1s2 Gastrointestinal: softer, improved distention, non tender, umbilical hernia, no skin discoloration. No rebound or guarding Musculoskeletal: Right aka, stump clean. Moves extremities. No edema Neurological: nl mental status, nl speech Lymphatics: No cervical or inguinal LNs Results Result Diagram: 05/09/17 0500 05/09/17 0500 DEVON CORONA MD May 09, 2017 16:19
[2017-05-09] MEDS ORDERED: IOHEXOL 14.3 MG(I)/ML (ADULT) BTL PO ONE (16:30)
[2017-05-09] MEDS: BALSAM PERU/CASTOR OIL 60 GM TUBE TOP SCH (20:46)
[2017-05-09] MEDS ORDERED: NYSTATIN 15 GM OINT TOP SCH (21:00)
[2017-05-09] MEDS ORDERED: IOHEXOL 300MG/ML 150 ML BTL ONE (21:16)
[2017-05-09] MEDS ORDERED: SOD CHLORIDE 0.9% 100 ML ONE (21:16)
[2017-05-10] VITALS (35 sets, daily range): BP systolic 102–147; BP diastolic 62–105; PULSE 66–101; RESP 13–38
[2017-05-10] MEDS: INSULIN ASPART [NOVOLOG] 3 ML PEN SC SCH ×6 (00:08→20:43)
[2017-05-10] MEDS: METOPROLOL 25 MG TAB PO SCH ×4 (00:10→17:24)
--- NOTE | 2017-05-10 00:19 | RADRPT ---
PROCEDURE: CT abdomen and pelvis without and with contrast. CLINICAL INDICATION: Leukocytosis. Abdominal pain. TECHNIQUE: CT scan of the abdomen and pelvis was performed before and after the uneventful intraven ous administration of 100 cc of Omnipaque 300. 90 cc of Redicat was also given orally. Coronal and s agittal reformatted images were obtained from the axial source images. The total exam CTDI equals 9 0.13, 90.48 mGy and the total exam DLP equals 2902.56 mGy-cm. One or more of the following dose reduction techniques were used: - Automated exposure control. - Adjustment of the mA and/or kV according to patient size. - Use of iterative reconstruction technique. COMPARISON: Abdominal ultrasound dated 05/08/2017. CT dated 05/02/2017. FINDINGS: Visualized lower thorax: There are small effusions within the visualized lung bases. There is bibas ilar compressive atelectasis, consolidation in the inferior right middle lobe, and subsegmental atel ectasis versus scarring in the lingula. There are coronary artery calcifications. Hepatobiliary system and spleen: The liver is normal in size and density with no focal hepatic lesi on identified. There is mild wall thickening enhancement of the common bile duct, which is nonspecif ic, but can be seen with cholangitis. There is no intra or extrahepatic biliary ductal dilatation. G allbladder is partially contracted. The spleen is unremarkable. There is residual enhancing pancreat ic parenchyma within the head, uncinate process, involving a small focus at the distal tail, consist ent with extensive pancreatic necrosis. There is extensive peripancreatic inflammatory change with f luid tracking into the upper abdomen and inferiorly along the pericolic gutters into the pelvis. The re is loculated fluid within the ventral pelvis as well as a loculated collection along the lesser c urvature of the stomach. The loculated fluid does not demonstrate a defined wall rim enhancement. Adrenal glands and genitourinary system: The adrenal glands are unremarkable. There is a complicate d cyst at the lower pole of the left kidney measuring 11 x 11 mm with peripheral calcification and s pontaneously hyperdense internal components. There are additional simple cysts scattered throughout both kidneys. There are punctate nonobstructing stones at the midportion and lower poles of both kid neys. There is a High catheter within the urinary bladder, which is decompressed. The prostate glan d and seminal vesicles are unremarkable. Gastrointestinal system: There are mildly focally dilated small bowel loops in the ventral mid abdo men, most consistent with a mild focal ileus. The remaining bowel demonstrates no wall thickening or evidence of bowel obstruction. The appendix is in the right lower quadrant and is unremarkable. Peritoneum, avascular, and lymphatics: There is no free intraperitoneal air. There is no mesenteric or retroperitoneal adenopathy. The main portal vein, splenic vein, and SMV remain patent. No vascul ar aneurysm is identified. There are atherosclerotic changes of the aorta, which is nonaneurysmal. T here is a small fat containing right inguinal hernia. Musculoskeletal system and soft tissues: There is moderate to severe degenerative enthesopathy at L 2-3 with associated Schmorl's nodes, unchanged from the prior. There are no concerning osseous lesio ns. There is anasarca, new when compared the prior. IMPRESSION: 1. 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 Worsening extensive peripancreatic inflammatory change and abdominopelv ic fluid with areas of loculated fluid along the lesser curvature of the stomach and within the vent ral pelvis, which do not demonstrate a defined wall rim enhancement to suggest abscess or pseudocyst formation. 2. Small bilateral pleural effusions and anasarca, new when compared the prior. 3. Nonspecific mild wall thickening enhancement of the common bile duct, which can be seen in patie nts with cholangitis. 4. Complicated cyst at the lower pole left kidney with spontaneous internal hyperdense material and peripheral calcification measuring 11 cm (Bosniak IIF). 5. Mildly dilated small bowel loops in the ventral mid abdomen, consistent with a mild focal ileus. 6. Bilateral nonobstructing nephrolithiasis. 7. Small fat containing right inguinal hernia. RPTAT: HLBP .Francis Glover MD, MD Date Time Electronically viewed and signed by .Francis Glover MD, MD on 05/10/2017 00:19 .P/
[2017-05-10] MEDS: HYDROmorphONE 1 MG/ML SYG IV PRN ×3 (03:59→19:47)
[2017-05-10] MEDS: PANTOPRAZOLE (EC) 40 MG TAB PO SCH (05:38)
[2017-05-10 05:52] LABS: ABNORMAL IP MESSAGE 1; BASOPHILS % 0.2 % (0.0-2.0); EOSINOPHILS # 0.3 10^3/ul (0.0-0.5); EOSINOPHILS % 1.4 % (0.0-7.0); HEMATOCRIT 25.7 % (42.0-52.0); HEMOGLOBIN 8.7 g/dl (14.0-18.0); LYMPHOCYTES # 1.1 10^3/ul (0.8-2.9); LYMPHOCYTES % 4.8 % (15.0-51.0); MEAN CORPUSCULAR HEMOGLOBIN 31.9 pg (29.0-33.0); MEAN CORPUSCULAR HGB CONC 33.9 g/dl (32.0-37.0); MEAN CORPUSCULAR VOLUME 94.1 fl (82.0-101.0); MONOCYTE # 0.8 10^3/ul (0.3-0.9); MONOCYTES % 3.4 % (0.0-11.0); NEUTROPHIL # 20.7 10^3/ul (1.6-7.5); NEUTROPHILS % 86.5 % (39.0-77.0); PLATELET COUNT 143 10^3/UL (140-415); POSITIVE DIFF @See below; RED BLOOD COUNT 2.73 10^6/ul (4.70-6.10); RED CELL DISTRIBUTION WIDTH 14.4 % (11.5-14.5); WHITE BLOOD COUNT 23.9 10^3/ul (4.8-10.8)
[2017-05-10 06:37] LABS: ALBUMIN 2.3 g/dl (3.3-4.9); ALBUMIN/GLOBULIN RATIO 0.88; BILIRUBIN,INDIRECT 0.3 mg/dl (0-1.1); BILIRUBIN,TOTAL 0.3 mg/dl (0.2-1.3); CALCIUM 8.1 mg/dl (8.4-10.2); CREATININE 2.06 mg/dl (0.61-1.24); POTASSIUM 3.9 mmol/L (3.5-5.1); TOTAL PROTEIN 4.9 g/dl (6.1-8.1)
[2017-05-10 06:41] LABS: MAGNESIUM 1.5 mg/dl (1.7-2.5); PHOSPHORUS 4.1 mg/dl (2.5-4.9)
--- NOTE | 2017-05-10 07:02 | PN ---
DATE: 05/09/2017 Patient seen, overall doing better, but unfortunately has worsening leukocytosis and his abdomen rem ains distended. Slight tender. The patient has been tolerating diet well. The patient is pending a repeat CT scan of the abdomen and pelvis ordered by the surgical team, ID is following as well. PHYSICAL EXAMINATION: VITAL SIGNS: Temperature 98.6. The patient is not tachycardic, heart rate 88, respirations 25, blo od pressure 146/85, saturation 98%. GENERAL: Patient in no acute distress, responding appropriately. CARDIOVASCULAR: S1 and S2, regular rate. LUNGS: Clear. ABDOMEN: Soft, distended. Slight discomfort upon deep palpation. EXTREMITIES: Right AKA. Otherwise, no significant edema. LABORATORY DATA: White count is 21.4, hemoglobin 9.2, hematocrit 28, platelet count 141, neutrophil s 81%, lymphocytes 6%, but 11% bands. ESR 65. Chemistry: Sodium is 143, potassium 3.8, chloride 1 10, bicarb 28, BUN is 62, creatinine 2.19, glucose of 221, albumin 2.9. Lipase is 48. Last glucose levels 272. The patient is on D5, which we will discontinue. Stool occult blood negative. Again, the CT scan of abdomen and pelvis is pending labs. MEDICATIONS: 1. Nystatin b.i.d. 2. Merrem 500 mL q. 12. 3. Lantus 20 units daily. 4. Diflucan IV daily. 5. Vancomycin dosed per pharmacy. 6. Xopenex every . 7. Insulin aspart per sliding scale. 8. Lopressor 50 hours q. 6 hours. 9. Protonix 40 mg daily. 10. Zyprexa 2.5 b.i.d. 11. Hypoglycemia protocol as directed. 12. Dilaudid p.r.n. 13. Zofran p.r.n. 14. DuoNeb p.r.n. 15. Ativan p.r.n. 16. Vancomycin as directed. ASSESSMENT AND PLAN: This is a 67-year-old male with history of meningioma status post cr aniotomy, diabetes mellitus, left forehead wound, chronic kidney disease, right above the knee amput ation, presented with pancreatitis, tachycardia, septic metabolic acidosis. 1. Respiratory, more stable. The patient is not in any distress. Continue O2 support via nasal ca nnula, observe. 2. Cardiovascular. Stable. The patient's tachycardia resolved. Continue beta blockers. 3. Infectious disease. The patient with worsening leukocytosis. The patient remains on broad-spec trum antibiotic with vancomycin, Merrem and Diflucan. The patient will undergo CT scan of abdomen a nd pelvis and I ordered stool for Clostridium difficile but patient does not have a significant diar emma. 4. Acute pancreatitis with a normal lipase. He still has vague abdominal pain which may be not rel ated to pancreatitis. Patient's diet was advanced successfully. 5. Dysphagia. Tolerating current diet well. 6. Encephalopathy, slight overall improved since admission. Overall, the patient has baseline slow speech and has expressive aphasia. 7. Diabetes mellitus. Hold D5. Continue Lantus 20. Continue insulin sliding. May increase furth er if once off the IV fluids glucose levels remain high. 8. Pending CT scan of the abdomen and pelvis. 9. Disposition to telemetry. 10. The patient remains FULL CODE. 11. Acute renal failure on chronic kidney disease, improved with hydration. 12. Psychiatric disorder on low dose Zyprexa, clinically improved again, but the only concern is hi s worsening leukocytosis. We will follow. Dictated By: DOMINGO GILMORE/DAVIE Conf#: [id number] DID#: [id number]
[2017-05-10] MEDS: INSULIN GLARGINE [LANtus] 3 ML PEN SC SCH ×2 (08:59→19:52)
[2017-05-10] MEDS: MEROPENEM 1 GM/50ML(PMX) 50 ML IVPB SCH ×2 (09:04→20:23)
[2017-05-10] MEDS: OLANZAPINE 2.5 MG TAB PO SCH ×2 (09:04→20:23)
[2017-05-10] MEDS: BALSAM PERU/CASTOR OIL 60 GM TUBE TOP SCH ×2 (09:05→20:23)
--- NOTE | 2017-05-10 09:10 | CONS ---
Date/Time of Note Date/Time of Note DATE: 05/10/17 TIME: 09:10 Assessment/Plan Assessment/Plan Chief Complaint/Hosp Course ID PROGRESS NOTE CURRENT ABX: DAY # => Vanco IV, Merrem, Diflucan 24H INTERVAL SUMMARY * Awake, alert -- c/o ABD pain - trying to have a BM difficult for him * INVASIVES: VPS, LUEXT Picc, FC * 05/07/17 VPS Wound Cx: GRAM STAIN Final POLYMORPH. LEUKOCYTE NONE SEEN . NO ORGANISM SEEN * WOUND CULTURE Preliminary No growth after 2 days Physical Exam Physical Exam Constitutional: A/A/O, mild ABD pain distress HEENT:Left side head DSG c/d/I Neck: Supple, full ROM Respiratory: Equal chest rise bilaterally without dyspnea Cardiovascular: nl pulses, regular rate and rhythm Gastrointestinal: Soft, NT, obese Extremities: Warm, R-AKA Neurological: Anxious ID ASSESSMENT 67 yo overweight M (BMI 29) admit with: 1. 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 History of craniotomy and meningioma with a history of left occipital methicillin-resistant Staphylococcus aureus positive wound. * Repeat cultures have been negative. 3. Fungal urinary tract infection. 4. Abdominal pain 2nd acute pancreatitis with ileus. 5. Acute renal failure/CKD - avoid nephrotoxic meds * -poss HD per renal 6. Uncontrolled Diabetes: blood sugar labile 7. Constipation/Ileus: Improved with bowel function; 8. Hypertension. 9. Scrotal incontinence dermatitis / rash 10. Hx of R-AKA (- )MRSA Nares ABX ALLERGIES: KNDA CURRENT ABX: DAY # => DAY # => Vanco IV, Merrem, Diflucan ID RECOMMENDATIONS 1. Continue current ABX -- hx of MRSA wound, VPS cx (-) Preliminary . Problems: Consultation Date/Type/Reason Admit Date/Time May 02, 2017 at 14:03 Initial Consult Date 05/03/17 Type of Consultation: ID Referring Provider: BRYAN MINOR DO Exam/Review of Systems Vital Signs Vitals Vital Signs Date Time Temp Pulse Resp B/P Pulse Ox O2 Delivery O2 Flow Rate FiO2 05/10/17 08:00 81 05/10/17 06:10 4.0 05/10/17 05:00 16 123/73 97 Nasal Cannula 05/10/17 04:00 98.5 Intake and Output 05/09/17 05/09/17 05/10/17 15:00 23:00 07:00 Intake Total 1320 ml 1850 ml 240 ml Output Total 625 ml 710 ml 680 ml Balance 695 ml 1140 ml -440 ml Results Result Diagram: 05/10/17 0500 05/10/17 0500 Results 24 hrs Laboratory Tests Test 05/09/17 12:08 05/09/17 17:17 05/09/17 20:19 05/10/17 00:03 Bedside Glucose 259 H 272 H 356 H 234 H Test 05/10/17 05:00 05/10/17 05:39 05/10/17 08:55 White Blood Count 23.9 H Red Blood Count 2.73 L Hemoglobin 8.7 L Hematocrit 25.7 L Mean Corpuscular Volume 94.1 Mean Corpuscular Hemoglobin 31.9 Mean Corpuscular Hemoglobin Concent 33.9 Red Cell Distribution Width 14.4 Platelet Count 143 Mean Platelet Volume 11.0 H Neutrophils % 86.5 H Lymphocytes % 4.8 L Monocytes % 3.4 Eosinophils % 1.4 Basophils % 0.2 Nucleated Red Blood Cells % 0.0 Neutrophils # 20.7 H Lymphocytes # 1.1 Monocytes # 0.8 Eosinophils # 0.3 Basophils # 0.0 Nucleated Red Blood Cells # 0.0 Sodium Level 140 Potassium Level 3.9 Chloride Level 107 Carbon Dioxide Level 26 Anion Gap 11 Blood Urea Nitrogen 48 #H Creatinine 2.06 H Glucose Level 147 # Calcium Level 8.1 L Phosphorus Level 4.1 Magnesium Level 1.5 L Total Bilirubin 0.3 Direct Bilirubin 0.00 Indirect Bilirubin 0.3 Aspartate Amino Transf (AST/SGOT) 16 Alanine Aminotransferase (ALT/SGPT) 32 Alkaline Phosphatase 123 H Total Protein 4.9 L Albumin 2.3 L Globulin 2.60 Albumin/Globulin Ratio 0.88 Random Vancomycin Level 9.4 Bedside Glucose 169 232 H Medications Medications Current Medications Ondansetron HCl (Zofran Inj) 4 mg Q6H PRN IV NAUSEA AND/OR VOMITING Last administered on 05/09/17 12:58; Admin Dose 4 MG; Start 05/02/17 at 19:00 Lorazepam (Ativan) 0.5 mg Q2H PRN IV ANXIETY Last administered on 05/06/17 16 :03; Admin Dose 0.5 MG; Start 05/02/17 at 19:00 Hydromorphone HCl (Dilaudid) 1 mg Q4H PRN IV PAIN LEVEL 7-10 Last administered on 05/10/17 03:59; Admin Dose 1 MG; Start 05/02/17 at 23:00 Miscellaneous Information 1 ea NOTE XX ; Start 05/03/17 at 14:00 Glucose (Glutose) 15 gm Q15M PRN PO DECREASED GLUCOSE; Start 05/03/17 at 14:00 Glucose (Glutose) 22.5 gm Q15M PRN PO DECREASED GLUCOSE; Start 05/03/17 at 14: 00 Dextrose (D50w Syringe) 25 ml Q15M PRN IV DECREASED GLUCOSE; Start 05/03/17 at 14:00 Dextrose (D50w Syringe) 50 ml Q15M PRN IV DECREASED GLUCOSE; Start 05/03/17 at 14:00 Glucagon (Glucagen) 1 mg Q15M PRN IM DECREASED GLUCOSE; Start 05/03/17 at 14:00 Glucose (Glutose) 15 gm Q15M PRN BUCCAL DECREASED GLUCOSE; Start 05/03/17 at 14 :00 Bisacodyl 10 mg 10 mg DAILY PRN [place] CONSTIPATION Last administered on 05/04/17 17:20; Admin Dose 10 MG; Start 05/03/17 at 17:00 Phenylephrine HCl/ Dextrose (Dean-Syneph/D5W) 250 ml @ 0 mls/hr TITRATE IV Last administered on 05/04/17 17:15; Admin Dose 20 MLS/HR; Start 05/03/17 at 17:00 Miscellaneous Information ([facility] This patient bustillo... PRN PRN XX WOUND CARE; Start 05/03/17 at 19:00 Olanzapine (Zyprexa) 2.5 mg BID PO Last administered on 05/10/17 09:04; Admin Dose 2.5 MG; Start 05/06/17 at 21:00 Pantoprazole (Protonix Tab) 40 mg DAILY@06 PO Last administered on 05/10/17 05:38; Admin Dose 40 MG; Start 05/07/17 at 06:00 Metoprolol Tartrate (Lopressor) 50 mg Q6 PO Last administered on 05/10/17 05: 38; Admin Dose 50 MG; Start 05/07/17 at 12:00 Insulin Aspart NOVOLOG *MODERATE* ALGORI... Q4 SC Last administered on 09:02; Admin Dose 6 UNIT; Start 05/07/17 at 21:00 Vancomycin HCl/ Sodium Chloride (Vancocin/NS) 250 ml @ 83.333 mls/ hr Q48H IVPB Last administered on 05/08/17 10:45; Admin Dose 83.333 MLS/HR; Start at 09:30 Insulin Glargine 20 unit 20 unit DAILY@08 SC Last administered on 05/10/17 08 :59; Admin Dose 20 UNIT; Start 05/09/17 at 08:00 Fluconazole/ Sodium Chloride 50 ml @ 50 mls/hr Q24H IVPB Last administered on 05/09/17 15:26; Admin Dose 50 MLS/HR; Start 05/08/17 at 13:30 Meropenem/Sodium Chloride (Merrem 1 Gm/50 ml (Pmx)) 50 ml @ 100 mls/hr Q12 IVPB Last administered on 05/10/17 09:04; Admin Dose 100 MLS/HR; Start 05/09 at 11:30 Nystatin (Nystatin Powder) 1 applic BID TOP ; Start 05/10/17 at 10:00 MURALI RIVERA NP May 10, 2017 09:10
--- NOTE | 2017-05-10 09:46 | CONS ---
Date/Time of Note Date/Time of Note DATE: 05/10/17 TIME: 09:45 Consult Date/Type/Reason Admit Date/Time May 02, 2017 at 14:03 Initial Consult Date 05/03/17 Type of Consultation: nephrology Ordering Provider: BRYAN MINOR DO Subjective pt. seen and examined in icu good uop feels better some abd pain, CT pending PHYSICAL EXAMINATION: VITAL SIGNS: Temperature 98.6. The patient is not tachycardic, heart rate 88, respirations 25, blood pressure 146/85, saturation 98%. GENERAL: Patient in no acute distress, responding appropriately. CARDIOVASCULAR: S1 and S2, regular rate. LUNGS: Clear. ABDOMEN: Soft, distended. Slight discomfort upon deep palpation. EXTREMITIES: Right AKA. Otherwise, no significant edema. Objective Vital Signs Date Time Temp Pulse Resp B/P Pulse Ox O2 Delivery O2 Flow Rate FiO2 05/10/17 09:00 72 25 129/77 97 Nasal Cannula 05/10/17 08:00 98.8 05/10/17 06:10 4.0 Intake and Output 05/09/17 05/09/17 05/10/17 15:00 23:00 07:00 Intake Total 1320 ml 1850 ml 240 ml Output Total 625 ml 710 ml 680 ml Balance 695 ml 1140 ml -440 ml Results/Medications Result Diagram: 05/10/17 0500 05/10/17 0500 Results 24 hrs Laboratory Tests Test 05/09/17 12:08 05/09/17 17:17 05/09/17 20:19 05/10/17 00:03 Bedside Glucose 259 H 272 H 356 H 234 H Test 05/10/17 05:00 05/10/17 05:39 05/10/17 08:55 White Blood Count 23.9 H Red Blood Count 2.73 L Hemoglobin 8.7 L Hematocrit 25.7 L Mean Corpuscular Volume 94.1 Mean Corpuscular Hemoglobin 31.9 Mean Corpuscular Hemoglobin Concent 33.9 Red Cell Distribution Width 14.4 Platelet Count 143 Mean Platelet Volume 11.0 H Neutrophils % 86.5 H Lymphocytes % 4.8 L Monocytes % 3.4 Eosinophils % 1.4 Basophils % 0.2 Nucleated Red Blood Cells % 0.0 Neutrophils # 20.7 H Lymphocytes # 1.1 Monocytes # 0.8 Eosinophils # 0.3 Basophils # 0.0 Nucleated Red Blood Cells # 0.0 Sodium Level 140 Potassium Level 3.9 Chloride Level 107 Carbon Dioxide Level 26 Anion Gap 11 Blood Urea Nitrogen 48 #H Creatinine 2.06 H Glucose Level 147 # Calcium Level 8.1 L Phosphorus Level 4.1 Magnesium Level 1.5 L Total Bilirubin 0.3 Direct Bilirubin 0.00 Indirect Bilirubin 0.3 Aspartate Amino Transf (AST/SGOT) 16 Alanine Aminotransferase (ALT/SGPT) 32 Alkaline Phosphatase 123 H Total Protein 4.9 L Albumin 2.3 L Globulin 2.60 Albumin/Globulin Ratio 0.88 Random Vancomycin Level 9.4 Bedside Glucose 169 232 H Medications Current Medications Ondansetron HCl (Zofran Inj) 4 mg Q6H PRN IV NAUSEA AND/OR VOMITING Last administered on 05/09/17 12:58; Admin Dose 4 MG; Start 05/02/17 at 19:00 Lorazepam (Ativan) 0.5 mg Q2H PRN IV ANXIETY Last administered on 05/06/17 16 :03; Admin Dose 0.5 MG; Start 05/02/17 at 19:00 Hydromorphone HCl (Dilaudid) 1 mg Q4H PRN IV PAIN LEVEL 7-10 Last administered on 05/10/17 03:59; Admin Dose 1 MG; Start 05/02/17 at 23:00 Miscellaneous Information 1 ea NOTE XX ; Start 05/03/17 at 14:00 Glucose (Glutose) 15 gm Q15M PRN PO DECREASED GLUCOSE; Start 05/03/17 at 14:00 Glucose (Glutose) 22.5 gm Q15M PRN PO DECREASED GLUCOSE; Start 05/03/17 at 14: 00 Dextrose (D50w Syringe) 25 ml Q15M PRN IV DECREASED GLUCOSE; Start 05/03/17 at 14:00 Dextrose (D50w Syringe) 50 ml Q15M PRN IV DECREASED GLUCOSE; Start 05/03/17 at 14:00 Glucagon (Glucagen) 1 mg Q15M PRN IM DECREASED GLUCOSE; Start 05/03/17 at 14:00 Glucose (Glutose) 15 gm Q15M PRN BUCCAL DECREASED GLUCOSE; Start 05/03/17 at 14 :00 Bisacodyl 10 mg 10 mg DAILY PRN [place] CONSTIPATION Last administered on 05/04/17 17:20; Admin Dose 10 MG; Start 05/03/17 at 17:00 Phenylephrine HCl/ Dextrose (Dean-Syneph/D5W) 250 ml @ 0 mls/hr TITRATE IV Last administered on 05/04/17 17:15; Admin Dose 20 MLS/HR; Start 05/03/17 at 17:00 Miscellaneous Information (Pending [facility] Order For Wound Care) This patient bustillo... PRN PRN XX WOUND CARE; Start 05/03/17 at 19:00 Olanzapine (Zyprexa) 2.5 mg BID PO Last administered on 05/10/17 09:04; Admin Dose 2.5 MG; Start 05/06/17 at 21:00 Pantoprazole (Protonix Tab) 40 mg DAILY@06 PO Last administered on 05/10/17 05:38; Admin Dose 40 MG; Start 05/07/17 at 06:00 Metoprolol Tartrate (Lopressor) 50 mg Q6 PO Last administered on 05/10/17 05: 38; Admin Dose 50 MG; Start 05/07/17 at 12:00 Insulin Aspart NOVOLOG *MODERATE* ALGORI... Q4 SC Last administered on 09:02; Admin Dose 6 UNIT; Start 05/07/17 at 21:00 Vancomycin HCl/ Sodium Chloride (Vancocin/NS) 250 ml @ 83.333 mls/ hr Q48H IVPB Last administered on 05/08/17 10:45; Admin Dose 83.333 MLS/HR; Start at 09:30 Insulin Glargine 20 unit 20 unit DAILY@08 SC Last administered on 05/10/17 08 :59; Admin Dose 20 UNIT; Start 05/09/17 at 08:00 Fluconazole/ Sodium Chloride 50 ml @ 50 mls/hr Q24H IVPB Last administered on 05/09/17 15:26; Admin Dose 50 MLS/HR; Start 05/08/17 at 13:30 Meropenem/Sodium Chloride (Merrem 1 Gm/50 ml (Pmx)) 50 ml @ 100 mls/hr Q12 IVPB Last administered on 05/10/17 09:04; Admin Dose 100 MLS/HR; Start 05/09 at 11:30 Nystatin (Nystatin Powder) 1 applic BID TOP ; Start 05/10/17 at 10:00 Assessment/Plan Chief Complaint/Hosp Course 1. ARF due to ATN. his uop is increasing and serum creatinine is slightly lower. imaging studies were reviewed. continue IVF and pressors. keep MAP > 60. will hold off on HD for now . 2. Severe sepsis and septic shock. on abx and pressors 3. Severe pancreatitis.- monitor lipase, ? restart diet 4. Diabetes.bs reviewed 7. Severe metabolic acidosis. improving. ABG reviewed 8. Hypertension, currently in shock and hypotensive. 9. History of dyslipidemia. 10. History of below-knee amputation. 11. History of craniotomy and meningioma, status post craniotomy. 12. History of seizure disorder. Problems: PADMAJA ESQUIVEL MD May 10, 2017 09:46
--- NOTE | 2017-05-10 10:06 | CONS ---
Date/Time of Note Date/Time of Note DATE: 05/10/17 TIME: 10:06 Consultation Date/Type/Reason Admit Date/Time May 02, 2017 at 14:03 Initial Consult Date 05/03/17 Type of Consultation: pulm/cc Referring Provider: BRYAN MINOR DO 24 HR Interval Summary Free Text/Dictation dictated [id number] Exam/Review of Systems Vital Signs Vitals Vital Signs Date Time Temp Pulse Resp B/P Pulse Ox O2 Delivery O2 Flow Rate FiO2 05/10/17 09:00 72 25 129/77 97 Nasal Cannula 05/10/17 08:00 98.8 05/10/17 06:10 4.0 Intake and Output 05/09/17 05/09/17 05/10/17 15:00 23:00 07:00 Intake Total 1320 ml 1850 ml 240 ml Output Total 625 ml 710 ml 680 ml Balance 695 ml 1140 ml -440 ml Results Result Diagram: 05/10/17 0500 05/10/17 0500 Results 24 hrs Laboratory Tests Test 05/09/17 12:08 05/09/17 17:17 05/09/17 20:19 05/10/17 00:03 Bedside Glucose 259 H 272 H 356 H 234 H Test 05/10/17 05:00 05/10/17 05:39 05/10/17 08:55 White Blood Count 23.9 H Red Blood Count 2.73 L Hemoglobin 8.7 L Hematocrit 25.7 L Mean Corpuscular Volume 94.1 Mean Corpuscular Hemoglobin 31.9 Mean Corpuscular Hemoglobin Concent 33.9 Red Cell Distribution Width 14.4 Platelet Count 143 Mean Platelet Volume 11.0 H Neutrophils % 86.5 H Lymphocytes % 4.8 L Monocytes % 3.4 Eosinophils % 1.4 Basophils % 0.2 Nucleated Red Blood Cells % 0.0 Neutrophils # 20.7 H Lymphocytes # 1.1 Monocytes # 0.8 Eosinophils # 0.3 Basophils # 0.0 Nucleated Red Blood Cells # 0.0 Sodium Level 140 Potassium Level 3.9 Chloride Level 107 Carbon Dioxide Level 26 Anion Gap 11 Blood Urea Nitrogen 48 #H Creatinine 2.06 H Glucose Level 147 # Calcium Level 8.1 L Phosphorus Level 4.1 Magnesium Level 1.5 L Total Bilirubin 0.3 Direct Bilirubin 0.00 Indirect Bilirubin 0.3 Aspartate Amino Transf (AST/SGOT) 16 Alanine Aminotransferase (ALT/SGPT) 32 Alkaline Phosphatase 123 H Total Protein 4.9 L Albumin 2.3 L Globulin 2.60 Albumin/Globulin Ratio 0.88 Random Vancomycin Level 9.4 Bedside Glucose 169 232 H Medications Medications Current Medications Ondansetron HCl (Zofran Inj) 4 mg Q6H PRN IV NAUSEA AND/OR VOMITING Last administered on 05/09/17 12:58; Admin Dose 4 MG; Start 05/02/17 at 19:00 Lorazepam (Ativan) 0.5 mg Q2H PRN IV ANXIETY Last administered on 05/06/17 16 :03; Admin Dose 0.5 MG; Start 05/02/17 at 19:00 Hydromorphone HCl (Dilaudid) 1 mg Q4H PRN IV PAIN LEVEL 7-10 Last administered on 05/10/17 10:05; Admin Dose 1 MG; Start 05/02/17 at 23:00 Miscellaneous Information 1 ea NOTE XX ; Start 05/03/17 at 14:00 Glucose (Glutose) 15 gm Q15M PRN PO DECREASED GLUCOSE; Start 05/03/17 at 14:00 Glucose (Glutose) 22.5 gm Q15M PRN PO DECREASED GLUCOSE; Start 05/03/17 at 14: 00 Dextrose (D50w Syringe) 25 ml Q15M PRN IV DECREASED GLUCOSE; Start 05/03/17 at 14:00 Dextrose (D50w Syringe) 50 ml Q15M PRN IV DECREASED GLUCOSE; Start 05/03/17 at 14:00 Glucagon (Glucagen) 1 mg Q15M PRN IM DECREASED GLUCOSE; Start 05/03/17 at 14:00 Glucose (Glutose) 15 gm Q15M PRN BUCCAL DECREASED GLUCOSE; Start 05/03/17 at 14 :00 Bisacodyl 10 mg 10 mg DAILY PRN IN CONSTIPATION Last administered on 05/04/17 17:20; Admin Dose 10 MG; Start 05/03/17 at 17:00 Phenylephrine HCl/ Dextrose (Dean-Syneph/D5W) 250 ml @ 0 mls/hr TITRATE IV Last administered on 05/04/17 17:15; Admin Dose 20 MLS/HR; Start 05/03/17 at 17:00 Miscellaneous Information (Pending [facility] Order For Wound Care) This patient bustillo... PRN PRN XX WOUND CARE; Start 05/03/17 at 19:00 Olanzapine (Zyprexa) 2.5 mg BID PO Last administered on 05/10/17 09:04; Admin Dose 2.5 MG; Start 05/06/17 at 21:00 Pantoprazole (Protonix Tab) 40 mg DAILY@06 PO Last administered on 05/10/17 05:38; Admin Dose 40 MG; Start 05/07/17 at 06:00 Metoprolol Tartrate (Lopressor) 50 mg Q6 PO Last administered on 05/10/17 05: 38; Admin Dose 50 MG; Start 05/07/17 at 12:00 Insulin Aspart NOVOLOG *MODERATE* ALGORI... Q4 SC Last administered on 09:02; Admin Dose 6 UNIT; Start 05/07/17 at 21:00 Vancomycin HCl/ Sodium Chloride (Vancocin/NS) 250 ml @ 83.333 mls/ hr Q48H IVPB Last administered on 05/08/17 10:45; Admin Dose 83.333 MLS/HR; Start at 09:30 Insulin Glargine 20 unit 20 unit DAILY@08 SC Last administered on 05/10/17 08 :59; Admin Dose 20 UNIT; Start 05/09/17 at 08:00 Fluconazole/ Sodium Chloride 50 ml @ 50 mls/hr Q24H IVPB Last administered on 05/09/17 15:26; Admin Dose 50 MLS/HR; Start 05/08/17 at 13:30 Meropenem/Sodium Chloride (Merrem 1 Gm/50 ml (Pmx)) 50 ml @ 100 mls/hr Q12 IVPB Last administered on 05/10/17 09:04; Admin Dose 100 MLS/HR; Start 05/09 at 11:30 Nystatin (Nystatin Powder) 1 applic BID TOP ; Start 05/10/17 at 10:00 SUSANNAH GUERRIER May 10, 2017 10:06
[2017-05-10] MEDS: VANCOMYCIN 1.25 GM in SOD CHLORIDE 0.9% 250 ML IVPB SCH (10:07)
--- NOTE | 2017-05-10 11:55 | CONS ---
Date/Time of Note Date/Time of Note DATE: 05/10/17 TIME: 11:29 Assessment/Plan Assessment/Plan Additional Assessment/Plan [facility] DATE OF SERVICE: 05/10/2017 PLACE OF SERVICE: [facility], sixth floor ASSESSMENT AND PLAN: A very-pleasant but unfortunate 67-year-old gentleman with multiple comorbidities including DM2 and prior CVA among others (please see below), presenting with acute pancreatitis complicated by necrosis but without obvious evidence of infected necrosis. Etiology of pancreatitis is likely gallstone related. My suspicion is that patient is starting to improve, but his condition is tenuous and prognosis is guarded given his multiple comorbidities, including malnutrition, DM2, CVA, renal insufficiency, institutionalized status, amputation, etc. No indication for acute surgical intervention or percutaneous intervention. Would recommend continuation of current coarse and advise multidisciplinary communication regarding care, specially decisions on intervention. Attempted to discuss with patient, but for the most part non-communicative. D/w nurse and with Dr. Marie. Much appreciate the consult. With above assessment, I've recommended the followin. Keep in-house and in the ICU for today 2. N.p.o. 3. Intravenous fluids 4. Consider discontinuing antimicrobials (elevated WBC likely due to inflammatory response of the pancreatitis) 5. Strict I's and O's 6. Labs in a.m. 7. Once patient starts clinically improving (we will decide in a multidisciplinary fashion), the plan would be to start patient on liquid diet and advancing slowly to a low fat diet 8. Long-term plan would be inpatient or outpatient lap joel to help prevent future episodes 9. 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 Please include me in all major decisions, specially decisions to scan the patient or to intervene with IR (very important to maintain multidisciplinary care for maximum value) Thank you very much for having me involved in the care of this very pleasant patient and I'm certain wonderful family. If you have any questions, please feel free to contact me at [phone]. Nature of presenting problem: High severity Please note that, given the extensive number of diagnoses or management options , the extensive amount and/or complexity of data needed to be reviewed, and high risk of complications and/or morbidity or mortality, this qualifies as high complexity type of decision-making. Disclaimers: 1. Inadvertent spelling and grammatical errors are likely due to electronic health record (EHR)/dictation software used and do not reflect on the quality of delivered patient care. 2. The electronic timestamp recorded on this note does not necessarily reflect the actual date and time of the visit or the service. 3. Portions of this note may have been created through electronic templates and computer algorithms that might bring in information either from the system or from other physicians and providers. Please note that such information may or may not contain errors, the occurrence of which are outside of my control. In general (but not always) this happens either in the beginning or at the end of the note. The portion of the note that I have created are generally done in 1 continuous block of text, flanked at the beginning and at the end by " ", and entered into one field in the EHR. 4. There may be other unanticipated errors in the note that are outside of my control. I can only attest to the portions of the note that I have created. Updated clinical summary: A very-pleasant but unfortunate 67-year-old gentleman with multiple comorbidities including DM2 and prior CVA among others (please see below), presenting with acute pancreatitis complicated by necrosis but without obvious evidence of infected necrosis. Etiology of pancreatitis is likely gallstone related. Comorbidities: 1. BMI 29 2. Diabetes mellitus, complicated by vascular disease (s/p R BKA) 3. CVA with right-sided weakness 4. Dyslipidemia 5. Seizure disorder 6. Bipolar disorder 7. History of CKD 8. Hypertension 9. Malnutrition (Albumin 2.3 H 05/10/17) 10. Expressive aphasia 11. Depression 12. Left scalp wound 13. Meningioma resection 2016 (Dr. Christian) 14. Rehab patient ([facility]) CONSULTATION REQUESTED BY: Tommy Marie MD HISTORY OF PRESENT ILLNESS: The patient is a very pleasant but unfortunate 67- year-old gentleman with above-mentioned comorbidities whom we were kindly asked consult regarding management of what appears to be severe pancreatitis with necrosis. Patient was admitted on 05/03/17 with acute pancreatitis, abdominal pain, sepsis and DKA. He was noted to have increased abdominal pain, tachycardia and hypotension. Elevated WBC to 18.9, renal failure and bandemia, acidosis, elevated glucose (452) and lipase (24,000). He was treated with maximal medical support and has been for the most part in the ICU since admission. Clinically improved without further procedure intra-abdominally, but since WBC antionette, another CT was done that showed worsening evidence of pancreatic necrosis without obvious evidence of infected necrosis. I was kindly asked to consult. During my visit, patient was essentially non-communicative ( only indicated "yes" when I asked him if I could examine him; he had just received Dilaudid; no family present; his nurse told me in the past he has been oriented x2 and that he has history of dementia, not mentioned in the H&P). ALLERGIES: NO KNOWN DRUG ALLERGIES MEDICATIONS Documented in the electronic records and reviewed by me. Please see the electronic records for details, as well as details for inpatient medications which were also reviewed by me. SOCIAL HISTORY: The patient lives in Rehab. Single and no children. - Tob; - ETOH; - IVDU (per report) FAMILY HISTORY: There are no mention of significant medical, surgical or oncologic issues in the family in the chart. REVIEW OF SYSTEMS: Unable to obtain secondary to patient's mental status PHYSICAL EXAMINATION GENERAL: The patient appears to be a very pleasant gentleman of Non- descent lying in bed, appearing stated age, and otherwise in no acute distress. BMI: 29. VITAL SIGNS: AVSS currently, but tachypneic in the recent past (please also see auto important data if available as well as the electronic records) HEENT: Normocephalic and atraumatic. Extraocular muscles and hearing could not be accurately assessed due to patient's mental status, but for the most part appeared to be grossly intact bilaterally and symmetrically. Sclerae are nonicteric. Oral cavity is clear; oral mucosa appear to be pink and moist. Dentition: poor. NECK: Supple. There is no lymphadenopathy or JVD. There is no submental, submandibular or supraclavicular lymphadenopathy. CHEST: Rises symmetrically with each breath; patient is breathing comfortably. There are no audible wheezes, rales or rhonchi on the gross exam. HEART: Pulse is regular and palpable on the right wrist. Capillary refill is normal. Carotid pulses are palpable bilaterally and symmetrically in the neck. EXTREMITIES: L lower extremity contains no significant pitting edema around the ankle. R BKA noted. ABDOMEN: Abdomen is soft, essentially nontender to palpation and only minimally distended. No evidence of ascites, organomegaly, caput medusae, engorged subcutaneous veins, or other abnormalities. There are no peritoneal signs or guarding. SKIN: Appears to be pink and feels warm to touch. NEUROLOGIC: Arousable, answered only one question and does not appear to be following simple commands appropriately. LABORATORY DATA: See below IMAGING: See electronic chart. Please note that I've personally reviewed all pertinent available images and I agree in general with their overall reported findings. Consultation Date/Type/Reason Admit Date/Time May 02, 2017 at 14:03 Constitutional: improved, no complaints, No chills, No febrile Eyes: no complaints, No discharge, No visual change ENT: no complaints, No congestion Respiratory: no complaints, No cough, No shortness of breath Cardiovascular: no complaints, No chest pain, No edema Gastrointestinal: constipation, no complaints, pain Genitourinary: no complaints, No dysuria Musculoskeletal: no complaints, No back pain Skin: no complaints, No bruising, No rash Neurologic: no complaints, No confusion Endocrine: no complaints Lymphatic: no complaints Psychological: nl mood/affect, no complaints Past Medical History Medical History: coronary artery disease, diabetes Social History Alcohol Use: none Smoking Status: Never smoker Drug Use: none Exam/Review of Systems Vital Signs Vitals Vital Signs Date Time Temp Pulse Resp B/P Pulse Ox O2 Delivery O2 Flow Rate FiO2 05/10/17 09:00 72 25 129/77 97 Nasal Cannula 05/10/17 08:00 98.8 05/10/17 06:10 4.0 Intake and Output 05/09/17 05/09/17 05/10/17 14:59 22:59 06:59 Intake Total 1320 ml 1910 ml 240 ml Output Total 675 ml 660 ml 780 ml Balance 645 ml 1250 ml -540 ml Results Result Diagram: 05/10/17 0500 05/10/17 0500 Results 24 hrs Laboratory Tests Test 05/09/17 12:08 05/09/17 17:17 05/09/17 20:19 05/10/17 00:03 Bedside Glucose 259 H 272 H 356 H 234 H Test 05/10/17 05:00 05/10/17 05:39 05/10/17 08:55 White Blood Count 23.9 H Red Blood Count 2.73 L Hemoglobin 8.7 L Hematocrit 25.7 L Mean Corpuscular Volume 94.1 Mean Corpuscular Hemoglobin 31.9 Mean Corpuscular Hemoglobin Concent 33.9 Red Cell Distribution Width 14.4 Platelet Count 143 Mean Platelet Volume 11.0 H Neutrophils % 86.5 H Lymphocytes % 4.8 L Monocytes % 3.4 Eosinophils % 1.4 Basophils % 0.2 Nucleated Red Blood Cells % 0.0 Neutrophils # 20.7 H Lymphocytes # 1.1 Monocytes # 0.8 Eosinophils # 0.3 Basophils # 0.0 Nucleated Red Blood Cells # 0.0 Sodium Level 140 Potassium Level 3.9 Chloride Level 107 Carbon Dioxide Level 26 Anion Gap 11 Blood Urea Nitrogen 48 #H Creatinine 2.06 H Glucose Level 147 # Calcium Level 8.1 L Phosphorus Level 4.1 Magnesium Level 1.5 L Total Bilirubin 0.3 Direct Bilirubin 0.00 Indirect Bilirubin 0.3 Aspartate Amino Transf (AST/SGOT) 16 Alanine Aminotransferase (ALT/SGPT) 32 Alkaline Phosphatase 123 H Total Protein 4.9 L Albumin 2.3 L Globulin 2.60 Albumin/Globulin Ratio 0.88 Random Vancomycin Level 9.4 Bedside Glucose 169 232 H Medications Medications Current Medications Ondansetron HCl (Zofran Inj) 4 mg Q6H PRN IV NAUSEA AND/OR VOMITING Last administered on 05/09/17 12:58; Admin Dose 4 MG; Start 05/02/17 at 19:00 Lorazepam (Ativan) 0.5 mg Q2H PRN IV ANXIETY Last administered on 05/06/17 16 :03; Admin Dose 0.5 MG; Start 05/02/17 at 19:00 Hydromorphone HCl (Dilaudid) 1 mg Q4H PRN IV PAIN LEVEL 7-10 Last administered on 05/10/17 10:05; Admin Dose 1 MG; Start 05/02/17 at 23:00 Miscellaneous Information 1 ea NOTE XX ; Start 05/03/17 at 14:00 Glucose (Glutose) 15 gm Q15M PRN PO DECREASED GLUCOSE; Start 05/03/17 at 14:00 Glucose (Glutose) 22.5 gm Q15M PRN PO DECREASED GLUCOSE; Start 05/03/17 at 14: 00 Dextrose (D50w Syringe) 25 ml Q15M PRN IV DECREASED GLUCOSE; Start 05/03/17 at 14:00 Dextrose (D50w Syringe) 50 ml Q15M PRN IV DECREASED GLUCOSE; Start 05/03/17 at 14:00 Glucagon (Glucagen) 1 mg Q15M PRN IM DECREASED GLUCOSE; Start 05/03/17 at 14:00 Glucose (Glutose) 15 gm Q15M PRN BUCCAL DECREASED GLUCOSE; Start 05/03/17 at 14 :00 Bisacodyl 10 mg 10 mg DAILY PRN OK CONSTIPATION Last administered on 05/04/17 17:20; Admin Dose 10 MG; Start 05/03/17 at 17:00 Phenylephrine HCl/ Dextrose (Dean-Syneph/D5W) 250 ml @ 0 mls/hr TITRATE IV Last administered on 05/04/17 17:15; Admin Dose 20 MLS/HR; Start 05/03/17 at 17:00 Miscellaneous Information ([facility] This patient bustillo... PRN PRN XX WOUND CARE; Start 05/03/17 at 19:00 Olanzapine (Zyprexa) 2.5 mg BID PO Last administered on 05/10/17 09:04; Admin Dose 2.5 MG; Start 05/06/17 at 21:00 Pantoprazole (Protonix Tab) 40 mg DAILY@06 PO Last administered on 05/10/17 05:38; Admin Dose 40 MG; Start 05/07/17 at 06:00 Metoprolol Tartrate (Lopressor) 50 mg Q6 PO Last administered on 05/10/17 05: 38; Admin Dose 50 MG; Start 05/07/17 at 12:00 Insulin Aspart NOVOLOG *MODERATE* ALGORI... Q4 SC Last administered on 09:02; Admin Dose 6 UNIT; Start 05/07/17 at 21:00 Vancomycin HCl/ Sodium Chloride (Vancocin/NS) 250 ml @ 83.333 mls/ hr Q48H IVPB Last administered on 05/10/17 10:07; Admin Dose 83.333 MLS/HR; Start at 09:30 Insulin Glargine 20 unit 20 unit DAILY@08 SC Last administered on 05/10/17 08 :59; Admin Dose 20 UNIT; Start 05/09/17 at 08:00 Fluconazole/ Sodium Chloride 50 ml @ 50 mls/hr Q24H IVPB Last administered on 05/09/17 15:26; Admin Dose 50 MLS/HR; Start 05/08/17 at 13:30 Meropenem/Sodium Chloride (Merrem 1 Gm/50 ml (Pmx)) 50 ml @ 100 mls/hr Q12 IVPB Last administered on 05/10/17 09:04; Admin Dose 100 MLS/HR; Start 05/09 at 11:30 Nystatin (Nystatin Powder) 1 applic BID TOP ; Start 05/10/17 at 10:00 CARA ROY M.D. May 10, 2017 11:55
[2017-05-10] MEDS: NYSTATIN 30 GM POWDER BTL TOP SCH ×2 (12:19→20:23)
[2017-05-10] MEDS: FLUCONAZOLE 100 MG/NS (PMX) 50 ML IVPB SCH (13:52)
[2017-05-10] MEDS ORDERED: MAGNESIUM SULFATE 2 GM/50 ML 50 ML IVPB ONE (14:00)
[2017-05-10] MEDS: SOD CHLORIDE 0.9% 1,000 ML IV SCH (14:06)
--- NOTE | 2017-05-10 14:15 | CONS ---
DATE OF ADMISSION: 05/02/2017 DATE OF CONSULTATION: 05/10/2017 PULMONARY CRITICAL CARE PROGRESS NOTE HISTORY OF PRESENT ILLNESS: The patient's condition is continually improving with continued improving mental status. The patient has remained hemodynamically stable. PHYSICAL EXAMINATION: GENERAL: Elderly male, awake, currently in no distress. VITAL SIGNS: Temperature 98 degree Fahrenheit, respiratory rate is 18 per minute, heart rate 80 per minute, blood pressure 130/70, O2 sat is 96% on 4 liter nasal cannula. Urine output is fair. HEENT: Supple neck, no JVD, no lymphadenopathy, midline trachea, no thyromegaly. There is a dressing applied over the left parietal area. CHEST: Diminished but clear breath sounds. HEART: S1, S2 audible. No murmurs, regular rhythm. ABDOMEN: Soft, nondistended, protuberant. Bowel sounds audible. EXTREMITIES: No peripheral edema. There is a well healed right below knee amputation stump. NEUROLOGIC: No focal deficit. LABORATORY DATA: Today, white count is 23.9, hemoglobin 8.7, platelet count of 143. Sodium 142, potassium 3.9, chloride 107, bicarbonate 26, BUN 48, creatinine 2.0. MEDICATIONS: 1. D5 at 6 mL per hour. 2. Diflucan 100 mg IV daily. 3. Meropenem 1 gram IV q.12h. 4. Vancomycin intravenously being dosed by the pharmacy. 5. DuoNeb q.6h. 6. Lantus insulin 20 units daily. 7. Metoprolol 25 mg q. 6h. 8. Zofran on a p.r.n. basis. ASSESSMENT: 1. Patient admitted with sepsis likely from acute pancreatitis, with clinical improvement, off pressor support. 2. History of diabetes and hypertension. 3. History of likely chronic encephalopathy. The patient's mental status, however, has significantly improved. 4. History of right below knee amputation. 5. History of cerebrovascular accident. 6. Persistent leukocytosis, etiology is unclear. 7. Anemia and mild thrombocytopenia. RECOMMENDATIONS: Continue current supportive care. The patient may need hematology evaluation. Dictated By: SUSANNAH MENDEZ/DAVIE Conf#: [id number] DID#: [id number]
--- NOTE | 2017-05-10 15:16 | PN ---
Date/Time of Note Date/Time of Note DATE: 05/10/17 TIME: 15:14 Assessment/Plan Lines/Catheters IV Catheter Type (from Nrs): PICC Line High in Place (from Nrs): Yes Assessment/Plan Chief Complaint/Hosp Course 1. Abdominal pain 2nd pancreatitis with ileus. Worsening leukocytosis with pancreatic necrosis. No large body of fluid collections. HBS consult appreciated -pain management -continue to monitor -no abx per HBS -close monitoring 2. Sepsis with lactic acidosis; +Urine cx, ? other. Improved -supportive -hannon culture- head shunt drainage sent for culture -as above 3. BMI 29 -eventual diet/exercise optimization 4. ARF: increasing uop today, cr much improved -judicious fluids -avoid nephrotoxic meds -poss HD per renal 5. Uncontrolled Diabetes: blood sugar labile -optimize sugar control -eventual diet optimization 6. Constipation/Ileus: Improved with bowel function; -optimize bowel regimen eventually 8. Electrolyte imbalance -optimize lytes Thank you, Problems: Subjective 24 Hr Interval Summary No abdominal pain. Tachycardia resolved. Bowel function. Increased work of breathing improved. No fevers, chills, sob, congested cough,sz, rash, bustillo, visual or neuro changes. No n/v/d/dysuria. Exam/Review of Systems Vital Signs Vitals Vital Signs Date Time Temp Pulse Resp B/P Pulse Ox O2 Delivery O2 Flow Rate FiO2 05/10/17 13:30 77 21 124/77 97 05/10/17 13:00 Nasal Cannula 05/10/17 12:00 98.8 05/10/17 12:00 2.0 Intake and Output 05/09/17 05/09/17 05/10/17 15:00 23:00 07:00 Intake Total 1320 ml 1850 ml 240 ml Output Total 625 ml 710 ml 780 ml Balance 695 ml 1140 ml -540 ml Exam Free Text/Dictation Constitutional: alert, no distress, oriented Psych: min anxiety Head: atraumatic, normocephalic, other (left head wound (shunt) with scant yellow drainage) Eyes: nl lids, nl sclera ENMT: mucosa pink and moist, nl nasal mucosa & septum Neck: non-tender, no jvd, supple Respiratory: normal resp effort, no wheezing Cardiovascular: s1s2 Gastrointestinal: softer, improved distention, non tender, umbilical hernia, no skin discoloration. No rebound or guarding Musculoskeletal: Right aka, stump clean. Moves extremities. No edema Neurological: nl mental status, nl speech Lymphatics: No cervical or inguinal LNs Results Result Diagram: 05/10/1749905/10/17499 DEVON CORONA MD May 10, 2017 15:16
[2017-05-10] MEDS: LORAZEPAM 2 MG INJ IV PRN (15:54)
[2017-05-11] VITALS (33 sets, daily range): BP systolic 112–176; BP diastolic 65–117; PULSE 68–101; RESP 14–32
[2017-05-11] MEDS: HYDROmorphONE 1 MG/ML SYG IV PRN ×2 (00:34→11:30)
[2017-05-11] MEDS: METOPROLOL 25 MG TAB PO SCH ×4 (00:34→17:31)
[2017-05-11] MEDS: INSULIN ASPART [NOVOLOG] 3 ML PEN SC SCH ×6 (00:36→20:49)
[2017-05-11] MEDS: SOD CHLORIDE 0.9% 1,000 ML IV SCH ×2 (03:32→18:12)
[2017-05-11] MEDS: LORAZEPAM 2 MG INJ IV PRN (03:33)
[2017-05-11] MEDS: PANTOPRAZOLE (EC) 40 MG TAB PO SCH (05:28)
[2017-05-11 06:38] LABS: ABNORMAL IP MESSAGE 1; BASOPHILS % 0.2 % (0.0-2.0); EOSINOPHILS # 0.3 10^3/ul (0.0-0.5); HEMATOCRIT 26.4 % (42.0-52.0); HEMOGLOBIN 8.6 g/dl (14.0-18.0); LYMPHOCYTES % 4.1 % (15.0-51.0); MEAN CORPUSCULAR HEMOGLOBIN 30.8 pg (29.0-33.0); MEAN CORPUSCULAR HGB CONC 32.6 g/dl (32.0-37.0); MEAN CORPUSCULAR VOLUME 94.6 fl (82.0-101.0); MEAN PLATELET VOLUME 11.3 fl (7.4-10.4); MONOCYTE # 0.9 10^3/ul (0.3-0.9); MONOCYTES % 3.7 % (0.0-11.0); NEUTROPHIL # 21.7 10^3/ul (1.6-7.5); NEUTROPHILS % 87.4 % (39.0-77.0); PLATELET COUNT 179 10^3/UL (140-415); POSITIVE DIFF @See below; RED BLOOD COUNT 2.79 10^6/ul (4.70-6.10); WHITE BLOOD COUNT 24.8 10^3/ul (4.8-10.8)
[2017-05-11 07:06] LABS: CALCIUM 8.2 mg/dl (8.4-10.2); CREATININE 1.78 mg/dl (0.61-1.24); POTASSIUM 4.1 mmol/L (3.5-5.1)
[2017-05-11] MEDS: INSULIN GLARGINE [LANtus] 3 ML PEN SC SCH ×2 (08:36→20:47)
[2017-05-11] MEDS: OLANZAPINE 2.5 MG TAB PO SCH ×2 (08:37→20:36)
[2017-05-11] MEDS: NYSTATIN 30 GM POWDER BTL TOP SCH ×2 (08:37→20:49)
[2017-05-11] MEDS: BALSAM PERU/CASTOR OIL 60 GM TUBE TOP SCH ×2 (08:37→20:49)
[2017-05-11] MEDS: MEROPENEM 1 GM/50ML(PMX) 50 ML IVPB SCH ×2 (08:37→20:37)
[2017-05-11 08:47] LABS: MAGNESIUM 1.9 mg/dl (1.7-2.5); PHOSPHORUS 4.2 mg/dl (2.5-4.9)
--- NOTE | 2017-05-11 09:39 | CONS ---
Date/Time of Note Date/Time of Note DATE: 05/11/17 TIME: 09:38 Consult Date/Type/Reason Admit Date/Time May 02, 2017 at 14:03 Initial Consult Date 05/03/17 Type of Consultation: nephrology Ordering Provider: BRYAN MINOR DO Subjective pt. seen and examined in icu good uop feels better some abd pain, CT result noted, necrotic pancrease PHYSICAL EXAMINATION: VITAL SIGNS: Temperature 98.6. The patient is not tachycardic, heart rate 88, respirations 25, blood pressure 146/85, saturation 98%. GENERAL: Patient in no acute distress, responding appropriately. CARDIOVASCULAR: S1 and S2, regular rate. LUNGS: Clear. ABDOMEN: Soft, distended. Slight discomfort upon deep palpation. EXTREMITIES: Right AKA. Otherwise, no significant edema. Objective Vital Signs Date Time Temp Pulse Resp B/P Pulse Ox O2 Delivery O2 Flow Rate FiO2 05/11/17 08:00 83 05/11/17 06:10 24 158/65 99 Nasal Cannula 05/11/17 01:35 3.0 05/11/17 00:00 98.2 Intake and Output 05/10/17 05/10/17 05/11/17 15:00 23:00 07:00 Intake Total 809.99 ml 540 ml 510 ml Output Total 800 ml 865 ml 660 ml Balance 9.99 ml -325 ml -150 ml Results/Medications Result Diagram: 05/11/17 0500 05/11/17 0500 Results 24 hrs Laboratory Tests Test 05/10/17 12:13 05/10/17 17:26 05/10/17 20:23 05/11/17 00:35 Bedside Glucose 211 140 147 126 Test 05/11/17 05:00 05/11/17 05:26 05/11/17 08:33 White Blood Count 24.8 H Red Blood Count 2.79 L Hemoglobin 8.6 L Hematocrit 26.4 L Mean Corpuscular Volume 94.6 Mean Corpuscular Hemoglobin 30.8 Mean Corpuscular Hemoglobin Concent 32.6 Red Cell Distribution Width 14.0 Platelet Count 179 # Mean Platelet Volume 11.3 H Neutrophils % 87.4 H Lymphocytes % 4.1 L Monocytes % 3.7 Eosinophils % 1.0 Basophils % 0.2 Nucleated Red Blood Cells % 0.0 Neutrophils # 21.7 H Lymphocytes # 1.0 Monocytes # 0.9 Eosinophils # 0.3 Basophils # 0.0 Nucleated Red Blood Cells # 0.0 Sodium Level 142 Potassium Level 4.1 Chloride Level 109 Carbon Dioxide Level 27 Anion Gap 10 Blood Urea Nitrogen 43 H Creatinine 1.78 H Glucose Level 108 Calcium Level 8.2 L Phosphorus Level 4.2 Magnesium Level 1.8 Bedside Glucose 120 128 Medications Current Medications Ondansetron HCl (Zofran Inj) 4 mg Q6H PRN IV NAUSEA AND/OR VOMITING Last administered on 05/09/17 12:58; Admin Dose 4 MG; Start 05/02/17 at 19:00 Lorazepam (Ativan) 0.5 mg Q2H PRN IV ANXIETY Last administered on 05/11/17 03 :33; Admin Dose 0.5 MG; Start 05/02/17 at 19:00 Hydromorphone HCl (Dilaudid) 1 mg Q4H PRN IV PAIN LEVEL 7-10 Last administered on 05/11/17 00:34; Admin Dose 1 MG; Start 05/02/17 at 23:00 Miscellaneous Information 1 ea NOTE XX ; Start 05/03/17 at 14:00 Glucose (Glutose) 15 gm Q15M PRN PO DECREASED GLUCOSE; Start 05/03/17 at 14:00 Glucose (Glutose) 22.5 gm Q15M PRN PO DECREASED GLUCOSE; Start 05/03/17 at 14: 00 Dextrose (D50w Syringe) 25 ml Q15M PRN IV DECREASED GLUCOSE; Start 05/03/17 at 14:00 Dextrose (D50w Syringe) 50 ml Q15M PRN IV DECREASED GLUCOSE; Start 05/03/17 at 14:00 Glucagon (Glucagen) 1 mg Q15M PRN IM DECREASED GLUCOSE; Start 05/03/17 at 14:00 Glucose (Glutose) 15 gm Q15M PRN BUCCAL DECREASED GLUCOSE; Start 05/03/17 at 14 :00 Bisacodyl 10 mg 10 mg DAILY PRN [place] CONSTIPATION Last administered on 05/04/17 17:20; Admin Dose 10 MG; Start 05/03/17 at 17:00 Phenylephrine HCl/ Dextrose (Dean-Syneph/D5W) 250 ml @ 0 mls/hr TITRATE IV Last administered on 05/04/17 17:15; Admin Dose 20 MLS/HR; Start 05/03/17 at 17:00 Miscellaneous Information (Pending Santyl Order For Wound Care) This patient bustillo... PRN PRN XX WOUND CARE; Start 05/03/17 at 19:00 Olanzapine (Zyprexa) 2.5 mg BID PO Last administered on 05/11/17 08:37; Admin Dose 2.5 MG; Start 05/06/17 at 21:00 Pantoprazole (Protonix Tab) 40 mg DAILY@06 PO Last administered on 05/11/17 05:28; Admin Dose 40 MG; Start 05/07/17 at 06:00 Metoprolol Tartrate (Lopressor) 50 mg Q6 PO Last administered on 05/11/17 05: 27; Admin Dose 50 MG; Start 05/07/17 at 12:00 Insulin Aspart NOVOLOG *MODERATE* ALGORI... Q4 SC Last administered on 20:43; Admin Dose 2 UNIT; Start 05/07/17 at 21:00 Vancomycin HCl/ Sodium Chloride (Vancocin/NS) 250 ml @ 83.333 mls/ hr Q48H IVPB Last administered on 05/10/17 10:07; Admin Dose 83.333 MLS/HR; Start at 09:30 Insulin Glargine 20 unit 20 unit DAILY@08 SC Last administered on 05/11/17 08 :36; Admin Dose 20 UNIT; Start 05/09/17 at 08:00 Fluconazole/ Sodium Chloride 50 ml @ 50 mls/hr Q24H IVPB Last administered on 05/10/17 13:52; Admin Dose 50 MLS/HR; Start 05/08/17 at 13:30 Meropenem/Sodium Chloride (Merrem 1 Gm/50 ml (Pmx)) 50 ml @ 100 mls/hr Q12 IVPB Last administered on 05/11/17 08:37; Admin Dose 100 MLS/HR; Start 05/09 at 11:30 Nystatin (Nystatin Powder) 1 applic BID TOP Last administered on 05/11/17 08: 37; Admin Dose 1 APPLIC; Start 05/10/17 at 10:00 Insulin Glargine 10 unit 10 unit DAILY@20 SC Last administered on 05/10/17 19 :52; Admin Dose 10 UNIT; Start 05/10/17 at 20:00 Sodium Chloride (NS) 1,000 ml @ 70 mls/hr [id number] IV Last administered on t 03:32; Admin Dose 70 MLS/HR; Start 05/10/17 at 14:00 Assessment/Plan Chief Complaint/Hosp Course 1. ARF due to ATN. his uop is increasing and serum creatinine is slightly lower. imaging studies were reviewed. continue IVF and pressors. keep MAP > 60. will hold off on HD for now . 2. Severe sepsis and septic shock. on abx and pressors 3. Severe pancreatitis.- monitor lipase, ? restart diet 4. Diabetes.bs reviewed 7. Severe metabolic acidosis. improving. ABG reviewed 8. Hypertension, currently in shock and hypotensive. 9. History of dyslipidemia. 10. History of below-knee amputation. 11. History of craniotomy and meningioma, status post craniotomy. 12. History of seizure disorder. Problems: PADMAJA ESQUIVEL MD May 11, 2017 09:39
--- NOTE | 2017-05-11 10:24 | PN ---
Date/Time of Note Date/Time of Note DATE: 05/11/17 TIME: 10:24 Assessment/Plan Lines/Catheters IV Catheter Type (from [facility]): PICC Line High in Place (from [facility]): Yes Assessment/Plan Assessment/Plan [facility] Progress Note Date of Service: 05/11/2017 Location of Service: ICU Today's Assessment & Plan: Overall stable without obvious evidence of deterioration, but with ongoing mental status issues (not very communicative). Uncertain since I am not familiar with his baseline mental status. Abdomen remains benign. No indications of major postoperative complications or wound problems. No indication for acute surgical intervention. Awaiting further return of bowel function. Previous assessment that applies today: A very-pleasant but unfortunate 67-year-old gentleman with multiple comorbidities including DM2 and prior CVA among others (please see below), presenting with acute pancreatitis complicated by necrosis but without obvious evidence of infected necrosis. Etiology of pancreatitis is likely gallstone related. Condition is tenuous and prognosis is guarded given his multiple comorbidities, including malnutrition, DM2, CVA, renal insufficiency, institutionalized status, amputation, etc. With above assessment, I've recommended the followin. Keep in-house and in the ICU for today 2. N.p.o. 3. Intravenous fluids 4. Consider discontinuing antimicrobials (elevated WBC likely due to inflammatory response of the pancreatitis) 5. Strict I's and O's 6. Labs in a.m. 7. Once patient starts clinically improving (we will decide in a multidisciplinary fashion), the plan would be to start patient on liquid diet and advancing slowly to a low fat diet 8. Long-term plan would be inpatient or outpatient lap joel to help prevent future episodes 9. Please avoid contrast in axial images since likely will not change analyst 10. Please include me in all major decisions, specially decisions to scan the patient or to intervene with IR (very important to maintain multidisciplinary care for maximum value) Thank you very much for having me involved in the care of this very pleasant patient and I'm certain wonderful family. If you have any questions, please feel free to contact me at [phone]. Nature of presenting problem: High severity Please note that, given the extensive number of diagnoses or management options , the extensive amount and/or complexity of data needed to be reviewed, and high risk of complications and/or morbidity or mortality, this qualifies as high complexity type of decision-making. Disclaimers: 1. Inadvertent spelling and grammatical errors are likely due to electronic health record (EHR)/dictation software used and do not reflect on the quality of delivered patient care. 2. The electronic timestamp recorded on this note does not necessarily reflect the actual date and time of the visit or the service. 3. Portions of this note may have been created through electronic templates and computer algorithms that might bring in information either from the system or from other physicians and providers. Please note that such information may or may not contain errors, the occurrence of which are outside of my control. In general (but not always) this happens either in the beginning or at the end of the note. The portion of the note that I have created are generally done in 1 continuous block of text, flanked at the beginning and at the end by " ", and entered into one field in the EHR. 4. There may be other unanticipated errors in the note that are outside of my control. I can only attest to the portions of the note that I have created. Updated clinical summary: A very-pleasant but unfortunate 67-year-old gentleman with multiple comorbidities including DM2 and prior CVA among others (please see below), presenting with acute pancreatitis complicated by necrosis but without obvious evidence of infected necrosis. Etiology of pancreatitis is likely gallstone related. Comorbidities: 1. BMI 29 2. Diabetes mellitus, complicated by vascular disease (s/p R BKA) 3. CVA with right-sided weakness 4. Dyslipidemia 5. Seizure disorder 6. Bipolar disorder 7. History of CKD 8. Hypertension 9. Malnutrition (Albumin 2.3 [facility] 05/10/17) 10. Expressive aphasia 11. Depression 12. Left scalp wound 13. Meningioma resection 2016 (Dr. Christian) 14. Rehab patient ([facility]) Subjective: No major events or complaints; no major reported abd pain and reportedly under control with medications; no n/v/d; no sob or cp; + bowel activity; + flatus; + BM and normal (incontinent, formed);- activity Objective: Vitals: See below Exam: GENERAL: On exam, the patient was laying in bed and appeared to be comfortable and in no acute distress. ABDOMEN: Soft, nontender and nondistended. There are no peritoneal signs or guarding. SKIN: Skin appears to be pink and feels warm to touch. NEUROLOGIC: Patient is arousable, looks at the examiner and does not respond to questions. Does not follow any commands. Exam/Review of Systems Vital Signs Vitals Vital Signs Date Time Temp Pulse Resp B/P Pulse Ox O2 Delivery O2 Flow Rate FiO2 05/11/17 08:00 83 05/11/17 06:10 24 158/65 99 Nasal Cannula 05/11/17 01:35 3.0 05/11/17 00:00 98.2 Intake and Output 05/10/17 05/10/17 05/11/17 15:00 23:00 07:00 Intake Total 809.99 ml 540 ml 510 ml Output Total 800 ml 865 ml 660 ml Balance 9.99 ml -325 ml -150 ml Results Result Diagram: 05/11/17 0500 05/11/17 0500 CARA ROY M.D. May 11, 2017 10:24
--- NOTE | 2017-05-11 10:38 | CONS ---
Date/Time of Note Date/Time of Note DATE: 05/11/17 TIME: 10:37 Assessment/Plan Assessment/Plan Additional Assessment/Plan Assessment and recommendations; 1. Patient admitted with sepsis and acute pancreatitis. 2. History of chronic encephalopathy. 3. Waxing and waning mental status. 4. History of diabetes and hypertension. Continue current treatment. Consultation Date/Type/Reason Admit Date/Time May 02, 2017 at 14:03 Initial Consult Date 05/03/17 Type of Consultation: Pulmonary/critical care Referring Provider: BRYAN MINOR DO 24 HR Interval Summary Free Text/Dictation Patient's condition is tenuous at best. Still having episodes of significant confusion. Patient however has remained hemodynamically stable. General exam; elderly male, currently in no distress. Exam/Review of Systems Vital Signs Vitals Vital Signs Date Time Temp Pulse Resp B/P Pulse Ox O2 Delivery O2 Flow Rate FiO2 05/11/17 08:00 83 05/11/17 06:10 24 158/65 99 Nasal Cannula 05/11/17 01:35 3.0 05/11/17 00:00 98.2 Intake and Output 05/10/17 05/10/17 05/11/17 14:59 22:59 06:59 Intake Total 689.99 ml 590 ml 580 ml Output Total 800 ml 845 ml 780 ml Balance -110.01 ml -255 ml -200 ml Exam HEENT exam; supple neck, no JVD. No lymphadenopathy. Midline trachea. No thyromegaly. Pharynx is clear. Chest exam; clear to auscultation. S1-S2 audible, no murmurs. Regular rhythm. Abdomen exam; soft, nontender. No organomegaly. Bowel sounds audible. Extremity exam; no edema. [employer]PA[employer]ER exam; he is awake and follows simple commands. Results Result Diagram: 05/11/17 0500 05/11/17 0500 Results 24 hrs Laboratory Tests Test 05/10/17 12:13 05/10/17 17:26 05/10/17 20:23 05/11/17 00:35 Bedside Glucose 211 140 147 126 Test 05/11/17 05:00 05/11/17 05:26 05/11/17 08:33 White Blood Count 24.8 H Red Blood Count 2.79 L Hemoglobin 8.6 L Hematocrit 26.4 L Mean Corpuscular Volume 94.6 Mean Corpuscular Hemoglobin 30.8 Mean Corpuscular Hemoglobin Concent 32.6 Red Cell Distribution Width 14.0 Platelet Count 179 # Mean Platelet Volume 11.3 H Neutrophils % 87.4 H Lymphocytes % 4.1 L Monocytes % 3.7 Eosinophils % 1.0 Basophils % 0.2 Nucleated Red Blood Cells % 0.0 Neutrophils # 21.7 H Lymphocytes # 1.0 Monocytes # 0.9 Eosinophils # 0.3 Basophils # 0.0 Nucleated Red Blood Cells # 0.0 Sodium Level 142 Potassium Level 4.1 Chloride Level 109 Carbon Dioxide Level 27 Anion Gap 10 Blood Urea Nitrogen 43 H Creatinine 1.78 H Glucose Level 108 Calcium Level 8.2 L Phosphorus Level 4.2 Magnesium Level 1.8 Bedside Glucose 120 128 Medications Medications Current Medications Ondansetron HCl (Zofran Inj) 4 mg Q6H PRN IV NAUSEA AND/OR VOMITING Last administered on 05/09/17 12:58; Admin Dose 4 MG; Start 05/02/17 at 19:00 Lorazepam (Ativan) 0.5 mg Q2H PRN IV ANXIETY Last administered on 05/11/17 03 :33; Admin Dose 0.5 MG; Start 05/02/17 at 19:00 Hydromorphone HCl (Dilaudid) 1 mg Q4H PRN IV PAIN LEVEL 7-10 Last administered on 05/11/17 00:34; Admin Dose 1 MG; Start 05/02/17 at 23:00 Miscellaneous Information 1 ea NOTE XX ; Start 05/03/17 at 14:00 Glucose (Glutose) 15 gm Q15M PRN PO DECREASED GLUCOSE; Start 05/03/17 at 14:00 Glucose (Glutose) 22.5 gm Q15M PRN PO DECREASED GLUCOSE; Start 05/03/17 at 14: 00 Dextrose (D50w Syringe) 25 ml Q15M PRN IV DECREASED GLUCOSE; Start 05/03/17 at 14:00 Dextrose (D50w Syringe) 50 ml Q15M PRN IV DECREASED GLUCOSE; Start 05/03/17 at 14:00 Glucagon (Glucagen) 1 mg Q15M PRN IM DECREASED GLUCOSE; Start 05/03/17 at 14:00 Glucose (Glutose) 15 gm Q15M PRN BUCCAL DECREASED GLUCOSE; Start 05/03/17 at 14 :00 Bisacodyl 10 mg 10 mg DAILY PRN [place] CONSTIPATION Last administered on 05/04/17 17:20; Admin Dose 10 MG; Start 05/03/17 at 17:00 Phenylephrine HCl/ Dextrose (Dean-Syneph/D5W) 250 ml @ 0 mls/hr TITRATE IV Last administered on 05/04/17 17:15; Admin Dose 20 MLS/HR; Start 05/03/17 at 17:00 Miscellaneous Information (Pending Santyl Order For Wound Care) This patient bustillo... PRN PRN XX WOUND CARE; Start 05/03/17 at 19:00 Olanzapine (Zyprexa) 2.5 mg BID PO Last administered on 05/11/17 08:37; Admin Dose 2.5 MG; Start 05/06/17 at 21:00 Pantoprazole (Protonix Tab) 40 mg DAILY@06 PO Last administered on 05/11/17 05:28; Admin Dose 40 MG; Start 05/07/17 at 06:00 Metoprolol Tartrate (Lopressor) 50 mg Q6 PO Last administered on 05/11/17 05: 27; Admin Dose 50 MG; Start 05/07/17 at 12:00 Insulin Aspart NOVOLOG *MODERATE* ALGORI... Q4 SC Last administered on 20:43; Admin Dose 2 UNIT; Start 05/07/17 at 21:00 Vancomycin HCl/ Sodium Chloride (Vancocin/NS) 250 ml @ 83.333 mls/ hr Q48H IVPB Last administered on 05/10/17 10:07; Admin Dose 83.333 MLS/HR; Start at 09:30 Insulin Glargine 20 unit 20 unit DAILY@08 SC Last administered on 05/11/17 08 :36; Admin Dose 20 UNIT; Start 05/09/17 at 08:00 Fluconazole/ Sodium Chloride 50 ml @ 50 mls/hr Q24H IVPB Last administered on 05/10/17 13:52; Admin Dose 50 MLS/HR; Start 05/08/17 at 13:30 Meropenem/Sodium Chloride (Merrem 1 Gm/50 ml (Pmx)) 50 ml @ 100 mls/hr Q12 IVPB Last administered on 05/11/17 08:37; Admin Dose 100 MLS/HR; Start 05/09 at 11:30 Nystatin (Nystatin Powder) 1 applic BID TOP Last administered on 05/11/17 08: 37; Admin Dose 1 APPLIC; Start 05/10/17 at 10:00 Insulin Glargine 10 unit 10 unit DAILY@20 SC Last administered on 05/10/17 19 :52; Admin Dose 10 UNIT; Start 05/10/17 at 20:00 Sodium Chloride (NS) 1,000 ml @ 70 mls/hr [id number] IV Last administered on 03:32; Admin Dose 70 MLS/HR; Start 05/10/17 at 14:00 SUSANNAH GUERRIER May 11, 2017 10:38
--- NOTE | 2017-05-11 11:14 | CONS ---
DATE OF ADMISSION: 05/02/2017 DATE OF CONSULTATION: TYPE OF CONSULTATION: GI. HISTORY OF PRESENT ILLNESS: A 67-year-old gentleman with a history of diabetes mellitus type 2, CVA , right-sided weakness, expressive aphasia, status post right below knee amputation, seizure disorde r, dyslipidemia, depression, admitted to the hospital for abdominal pain, tachycardia and hypotensiv e episode. The patient had a CAT scan done upon arrival. He had a diffusely enlarged pancreas with surrounding extensive inflammatory changes consistent with the diagnosis of acute pancreatitis. He also had a renal cyst. GI consult was called in for necrotizing pancreatitis and leukocytosis. Th e patient is unable to give much history. I reviewed hepatobiliary surgical consult and general evita gical consult also. PAST MEDICAL HISTORY: Diabetes mellitus, CVA, right BKA, dyslipidemia, seizure disorder, chronic ki dney disease and hypertension. PAST SURGICAL HISTORY: Right below knee amputation, craniotomy for meningioma. ALLERGIES: NO KNOWN DRUG ALLERGIES. SOCIAL HISTORY: No alcohol, tobacco, IV drug abuse. MEDICATIONS: All reviewed. 1. Statin. 2. Aspirin. 3. Januvia. 4. Levemir. 5. Glucagon. ALLERGIES: NONE. PHYSICAL EXAMINATION: GENERAL: He is alert, awake, overweight. CARDIOVASCULAR SYSTEM: No murmur, gallop or click. LUNGS: Clear. ABDOMEN: Soft, obese. Bowel sounds heard. EXTREMITIES: No edema. CENTRAL NERVOUS SYSTEM: The patient is moving extremities. His INR is 1.3. WBC is 23,000, gradually going up, hematocrit is 25. BUN is 63, creatinine is 2.92 , alkaline phosphatase is mildly elevated to 1.31. Stool for occult blood is negative. The CAT scan which was done yesterday showed extensive pancreatic necrosis. Bilateral pleural effus ion and anasarca. Gallbladder ultrasound done on 05/02/2017 showed gallbladder was normal, no stone s identified. CAT scan also did not reveal any gallbladder stone. The patient's triglyceride was 7 9. IMPRESSION: 1. 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 2. Diabetes mellitus. 3. Leukocytosis, which is most probably related to the necrosis in the pancreas. 4. Cerebrovascular accident. 5. Renal failure. PLAN: The exact etiology of the pancreatitis is unclear. Since the patient was taking Januvia, i ch is known to produce pancreatitis, the cause from the Januvia cannot be absolutely ruled out. We have not demonstrated any gallstone, both on the sonogram and the CAT scan so far, and the triglycer brain level had been normal. We will continue present care, all the supportive care, IV hydration. K eep the patient n.p.o. No drainage at this point, there is nothing to drain, both with the US or pe rcutaneously. We will monitor his WBC and hematocrit closely. Dictated By: JOHNY MCCURDY MD PJ/NTS Conf#: [id number] DID#: [id number] CC: DOMINGO ARELLANO MD;*EndCC*
[2017-05-11] MEDS: VANCOMYCIN 1 GM in NS 250 ML IVPB SCH (11:29)
--- NOTE | 2017-05-11 11:54 | CONS ---
Date/Time of Note Date/Time of Note DATE: 05/11/17 TIME: 11:50 Assessment/Plan Assessment/Plan Chief Complaint/Hosp Course ID PROGRESS NOTE CURRENT ABX: DAY # => Vanco IV, Merrem, Diflucan 24H INTERVAL SUMMARY * Still has ABD pain -- multifactorial = acute pancreatitis, ileus, constipation ? * INVASIVES: VPS, LUEXT Picc, FC * 05/07/17 VPS Wound Cx: [place]: 05/07/17-1120 Source: HEAD WOUND CULTURE Final No growth after 3 days Physical Exam Physical Exam Constitutional: A/A/O, mild ABD pain distress HEENT:Left side head DSG c/d/I Neck: Supple, full ROM Respiratory: Equal chest rise bilaterally without dyspnea Cardiovascular: nl pulses, regular rate and rhythm Gastrointestinal: Soft, NT, obese Extremities: Warm, R-AKA Neurological: Anxious ID ASSESSMENT 67 yo overweight M (BMI 29) admit with: 1. Severe sepsis -> s/p shock/lactic acidosis; worsening leukocytosis * GIVER Shunt sent for micro C&S (-) * ESR 67 2. History of craniotomy and meningioma with a history of left occipital (+) MRSA wound. * Repeat cultures have been negative. 3. Fungal urinary tract infection. 4. Abdominal pain 2nd acute pancreatitis with ileus. 5. Acute renal failure/CKD - avoid nephrotoxic meds * -poss HD per renal 6. Uncontrolled Diabetes: blood sugar labile 7. Constipation/Ileus: Improved with bowel function; 8. Hypertension. 9. Scrotal incontinence dermatitis / rash 10. Hx of R-AKA (- )MRSA Nares ABX ALLERGIES: KNDA CURRENT ABX: DAY # => Vanco IV, Merrem, Diflucan ID RECOMMENDATIONS 1. Continue current ABX -- hx of MRSA wound, VPS cx (-) . Problems: Consultation Date/Type/Reason Admit Date/Time May 02, 2017 at 14:03 Initial Consult Date 05/03/17 Type of Consultation: ID Referring Provider: BRYAN MINOR DO Exam/Review of Systems Vital Signs Vitals Vital Signs Date Time Temp Pulse Resp B/P Pulse Ox O2 Delivery O2 Flow Rate FiO2 05/11/17 11:00 101 22 161/89 93 Nasal Cannula 05/11/17 08:05 2.0 05/11/17 08:00 97.7 Intake and Output 05/10/17 05/10/17 05/11/17 15:00 23:00 07:00 Intake Total 809.99 ml 540 ml 510 ml Output Total 800 ml 865 ml 760 ml Balance 9.99 ml -325 ml -250 ml Results Result Diagram: 05/11/17 0500 05/11/17 0500 Results 24 hrs Laboratory Tests Test 05/10/17 12:13 05/10/17 17:26 05/10/17 20:23 05/11/17 00:35 Bedside Glucose 211 140 147 126 Test 05/11/17 05:00 05/11/17 05:26 05/11/17 08:33 White Blood Count 24.8 H Red Blood Count 2.79 L Hemoglobin 8.6 L Hematocrit 26.4 L Mean Corpuscular Volume 94.6 Mean Corpuscular Hemoglobin 30.8 Mean Corpuscular Hemoglobin Concent 32.6 Red Cell Distribution Width 14.0 Platelet Count 179 # Mean Platelet Volume 11.3 H Neutrophils % 87.4 H Lymphocytes % 4.1 L Monocytes % 3.7 Eosinophils % 1.0 Basophils % 0.2 Nucleated Red Blood Cells % 0.0 Neutrophils # 21.7 H Lymphocytes # 1.0 Monocytes # 0.9 Eosinophils # 0.3 Basophils # 0.0 Nucleated Red Blood Cells # 0.0 Sodium Level 142 Potassium Level 4.1 Chloride Level 109 Carbon Dioxide Level 27 Anion Gap 10 Blood Urea Nitrogen 43 H Creatinine 1.78 H Glucose Level 108 Calcium Level 8.2 L Phosphorus Level 4.2 Magnesium Level 1.8 Bedside Glucose 120 128 Medications Medications Current Medications Ondansetron HCl (Zofran Inj) 4 mg Q6H PRN IV NAUSEA AND/OR VOMITING Last administered on 05/09/17 12:58; Admin Dose 4 MG; Start 05/02/17 at 19:00 Lorazepam (Ativan) 0.5 mg Q2H PRN IV ANXIETY Last administered on 05/11/17 03 :33; Admin Dose 0.5 MG; Start 05/02/17 at 19:00 Hydromorphone HCl (Dilaudid) 1 mg Q4H PRN IV PAIN LEVEL 7-10 Last administered on 05/11/17 11:30; Admin Dose 1 MG; Start 05/02/17 at 23:00 Miscellaneous Information 1 ea NOTE XX ; Start 05/03/17 at 14:00 Glucose (Glutose) 15 gm Q15M PRN PO DECREASED GLUCOSE; Start 05/03/17 at 14:00 Glucose (Glutose) 22.5 gm Q15M PRN PO DECREASED GLUCOSE; Start 05/03/17 at 14: 00 Dextrose (D50w Syringe) 25 ml Q15M PRN IV DECREASED GLUCOSE; Start 05/03/17 at 14:00 Dextrose (D50w Syringe) 50 ml Q15M PRN IV DECREASED GLUCOSE; Start 05/03/17 at 14:00 Glucagon (Glucagen) 1 mg Q15M PRN IM DECREASED GLUCOSE; Start 05/03/17 at 14:00 Glucose (Glutose) 15 gm Q15M PRN BUCCAL DECREASED GLUCOSE; Start 05/03/17 at 14 :00 Bisacodyl 10 mg 10 mg DAILY PRN OK CONSTIPATION Last administered on 05/04/17 17:20; Admin Dose 10 MG; Start 05/03/17 at 17:00 Phenylephrine HCl/ Dextrose (Dean-Syneph/D5W) 250 ml @ 0 mls/hr TITRATE IV Last administered on 05/04/17 17:15; Admin Dose 20 MLS/HR; Start 05/03/17 at 17:00 Miscellaneous Information ([facility]) This patient bustillo... PRN PRN XX WOUND CARE; Start 05/03/17 at 19:00 Olanzapine (Zyprexa) 2.5 mg BID PO Last administered on 05/11/17 08:37; Admin Dose 2.5 MG; Start 05/06/17 at 21:00 Pantoprazole (Protonix Tab) 40 mg DAILY@06 PO Last administered on 05/11/17 05:28; Admin Dose 40 MG; Start 05/07/17 at 06:00 Metoprolol Tartrate (Lopressor) 50 mg Q6 PO Last administered on 05/11/17 11: 29; Admin Dose 50 MG; Start 05/07/17 at 12:00 Insulin Aspart (Novolog Insulin Pen) NOVOLOG *MODERATE* ALGORI... Q4 SC Last administered on 05/10/17 20:43; Admin Dose 2 UNIT; Start 05/07/17 at 21:00 Insulin Glargine 20 unit 20 unit DAILY@08 SC Last administered on 05/11/17 08 :36; Admin Dose 20 UNIT; Start 05/09/17 at 08:00 Fluconazole/ Sodium Chloride 50 ml @ 50 mls/hr Q24H IVPB Last administered on 05/10/17 13:52; Admin Dose 50 MLS/HR; Start 05/08/17 at 13:30 Meropenem/Sodium Chloride (Merrem 1 Gm/50 ml (Pmx)) 50 ml @ 100 mls/hr Q12 IVPB Last administered on 05/11/17 08:37; Admin Dose 100 MLS/HR; Start 05/09 at 11:30 Nystatin (Nystatin Powder) 1 applic BID TOP Last administered on 05/11/17 08: 37; Admin Dose 1 APPLIC; Start 05/10/17 at 10:00 Insulin Glargine 10 unit 10 unit DAILY@20 SC Last administered on 05/10/17 19 :52; Admin Dose 10 UNIT; Start 05/10/17 at 20:00 Sodium Chloride 1,000 ml @ 70 mls/hr [id number] IV Last administered on 03:32; Admin Dose 70 MLS/HR; Start 05/10/17 at 14:00 Vancomycin HCl (Vancocin) 250 ml @ 125 mls/hr Q24H IVPB Last administered on 05/11/17 11:29; Admin Dose 125 MLS/HR; Start 05/11/17 at 11:30 MURALI RIVERA NP May 11, 2017 11:54
[2017-05-11] MEDS ORDERED: VANCOMYCIN 1 GM in NS 250 ML IVPB SCH (13:00)
[2017-05-11] MEDS: FLUCONAZOLE 100 MG/NS (PMX) 50 ML IVPB SCH (14:27)
--- NOTE | 2017-05-11 14:33 | PN ---
Date/Time of Note Date/Time of Note DATE: 05/11/17 TIME: 14:30 Assessment/Plan Lines/Catheters IV Catheter Type (from Nrs): PICC Line High in Place (from Nrs): Yes Assessment/Plan Chief Complaint/Hosp Course 1. Abdominal pain 2nd pancreatitis with ileus. Worsening leukocytosis with pancreatic necrosis. No large body of fluid collections. HBS input appreciated -pain management -continue to monitor -no abx per HBS -close monitoring 2. Sepsis with lactic acidosis; +Urine cx, ? other. Improved -supportive -hannon culture- head shunt drainage sent for culture -as above 3. BMI 29 -eventual diet/exercise optimization 4. ARF: increasing uop today, cr much improved -judicious fluids -avoid nephrotoxic meds -poss HD per renal 5. Uncontrolled Diabetes: blood sugar labile -optimize sugar control -eventual diet optimization 6. Constipation/Ileus: Improved with bowel function; -optimize bowel regimen eventually 8. Electrolyte imbalance -optimize lytes Thank you, Problems: Subjective 24 Hr Interval Summary No abdominal pain. Bowel function. Significant leukocytosis. No fevers, chills , sob, congested cough,sz, rash, bustillo, visual or neuro changes. No n/v/d/dysuria. Exam/Review of Systems Vital Signs Vitals Vital Signs Date Time Temp Pulse Resp B/P Pulse Ox O2 Delivery O2 Flow Rate FiO2 05/11/17 12:00 97.8 91 15 128/78 98 Nasal Cannula 05/11/17 08:05 2.0 Intake and Output 05/10/17 05/10/17 05/11/17 15:00 23:00 07:00 Intake Total 809.99 ml 540 ml 580 ml Output Total 800 ml 865 ml 760 ml Balance 9.99 ml -325 ml -180 ml Exam Free Text/Dictation Constitutional: alert, no distress, oriented Psych: min anxiety Head: atraumatic, normocephalic, other (left head wound (shunt) with scant yellow drainage) Eyes: nl lids, nl sclera ENMT: mucosa pink and moist, nl nasal mucosa & septum Neck: non-tender, no jvd, supple Respiratory: normal resp effort, no wheezing Cardiovascular: s1s2 Gastrointestinal: softer, improved distention, non tender, umbilical hernia, no skin discoloration. No rebound or guarding Musculoskeletal: Right aka, stump clean. Moves extremities. No edema Neurological: nl mental status, nl speech Lymphatics: No cervical or inguinal LNs Results Result Diagram: 05/11/17 05005/11/17 0500 DEVON CORONA MD May 11, 2017 14:33
[2017-05-11] MEDS: DEXTROSE 5%-0.9% NACL 1,000 ML IV SCH (18:45)
[2017-05-12] VITALS (26 sets, daily range): BP systolic 131–171; BP diastolic 61–111; PULSE 62–97; RESP 18–31
[2017-05-12] MEDS: METOPROLOL 25 MG TAB PO SCH ×5 (00:40→23:55)
[2017-05-12] MEDS: HYDROmorphONE 1 MG/ML SYG IV PRN (00:40)
[2017-05-12] MEDS: INSULIN ASPART [NOVOLOG] 3 ML PEN SC SCH ×6 (00:51→20:49)
--- NOTE | 2017-05-12 01:27 | PN ---
DATE: 05/11/2017 SUBJECTIVE: Patient seen, noted consult by hepatobiliary surgery, ID, GI and pulmonary. Patient ly ing in bed comfortably, requesting for water. The patient remains with persistent leukocytosis. PHYSICAL EXAMINATION: VITAL SIGNS: Temperature 97.8, pulse 91, respirations 18, blood pressure 128/70, saturation 98%. GENERAL: The patient is in no acute distress. The patient is pale, left frontal temporal wound. CARDIOVASCULAR: S1, S2, regular rate. LUNGS: Clear. ABDOMEN: Soft, slightly distended, nontender. EXTREMITIES: Right AKA and trace edema. There is +1 edema in the right upper extremity. LABORATORY DATA: White count is elevated at 24.8, hemoglobin 8.6, hematocrit 26, platelet count 179 , neutrophils 87%, lymphocytes 4%. Chemistry: Sodium is 142, potassium 4.1, chloride 109, bicarbon ate 27, BUN 43, creatinine 1.78 and glucose of 108. Glucose levels are much better now. Glucose le jeremiah is 120, 128 and 120. Magnesium is 1.8. MEDICATIONS: Include: 1. Vancomycin dose per Pharmacy. 2. Lantus 10 units daily at night. 3. Normal saline at 70 mL an hour. 4. Nystatin b.i.d. 5. Merrem 1 gram q.12. 6. Lantus 20 units daily. 7. Diflucan dose per pharmacy. 8. Xopenex as directed. 9. Lopressor 50 q.6. 10. Protonix 40 mg daily. 11. Zyprexa 2.5 b.i.d. 12. Dulcolax as directed. 13. Hyperglycemia protocol as directed. 14. Dilaudid. 15. Zofran. 16. DuoNeb. 17. Ativan. 18. Vancomycin dose per pharmacy. ASSESSMENT AND PLAN: This is an unfortunate 67-year-old male with history of meningioma s tatus post craniotomy, diabetes mellitus, left forehead wound, chronic kidney disease, right above t he knee amputation, presented with pancreatitis, tachycardia, sepsis with metabolic acidosis. 1. Respiratory. Remains stable. No evidence of fluid overload state. O2 support as needed. 2. Cardiovascular. Much better. Remains on beta blockers. 3. Infectious disease. Patient's leukocytosis may be due to systemic inflammatory response syndrom e versus an infectious process. Remains on broad-spectrum antibiotics with imipenem, vancomycin and Diflucan. 4. Acute pancreatitis with evidence of necrosis. I appreciate GI and hepatobiliary service. In e meantime, the patient is n.p.o. with IV fluids. 5. Dysphagia. Continue to keep him n.p.o. 6. Encephalopathy, slightly better. We will observe. The patient has baseline slurred speech, sta tus post meningioma resection last year. 7. Diabetes mellitus, much control with above insulin regimen of Lantus in the morning and 10 units of Lantus at night. 8. Patient is FULL CODE. 9. Chronic kidney disease. Kidney function continues to improve with hydration. Electrolytes will be monitored. 10. Diet to be advanced when deemed safe by the above consultants. Try to keep patient comfortable at all times. Continue DVT prophylaxis and gastrointestinal prophylaxis. 11. Diabetes mellitus. Continue current regimen of the above Lantus. Sugars are now in the low 10 0s. We will follow. Dictated By: DOMINGO GILMORE/DAVIE Conf#: [id number] DID#: [id number]
[2017-05-12 05:46] LABS: ABNORMAL IP MESSAGE 1; BASOPHILS % 0.2 % (0.0-2.0); EOSINOPHILS # 0.2 10^3/ul (0.0-0.5); EOSINOPHILS % 0.9 % (0.0-7.0); HEMATOCRIT 25.3 % (42.0-52.0); HEMOGLOBIN 8.7 g/dl (14.0-18.0); LYMPHOCYTES % 4.3 % (15.0-51.0); MEAN CORPUSCULAR HEMOGLOBIN 32.2 pg (29.0-33.0); MEAN CORPUSCULAR HGB CONC 34.4 g/dl (32.0-37.0); MEAN CORPUSCULAR VOLUME 93.7 fl (82.0-101.0); MONOCYTE # 0.9 10^3/ul (0.3-0.9); NEUTROPHIL # 20.1 10^3/ul (1.6-7.5); NEUTROPHILS % 88.1 % (39.0-77.0); PLATELET COUNT 226 10^3/UL (140-415); POSITIVE DIFF @See below; RED CELL DISTRIBUTION WIDTH 13.9 % (11.5-14.5); WHITE BLOOD COUNT 22.8 10^3/ul (4.8-10.8)
[2017-05-12 06:07] LABS: ALBUMIN 1.9 g/dl (3.3-4.9); ALBUMIN/GLOBULIN RATIO 0.65; BILIRUBIN,INDIRECT 0.6 mg/dl (0-1.1); BILIRUBIN,TOTAL 0.6 mg/dl (0.2-1.3); CALCIUM 8.4 mg/dl (8.4-10.2); CREATININE 1.61 mg/dl (0.61-1.24); POTASSIUM 3.9 mmol/L (3.5-5.1); TOTAL PROTEIN 4.8 g/dl (6.1-8.1)
[2017-05-12 06:10] LABS: MAGNESIUM 1.6 mg/dl (1.7-2.5); PHOSPHORUS 3.8 mg/dl (2.5-4.9)
[2017-05-12] MEDS: PANTOPRAZOLE (EC) 40 MG TAB PO SCH (06:32)
--- NOTE | 2017-05-12 07:33 | PN ---
DATE: 05/10/2017 SUBJECTIVE: The patient seen. A CT scan was done overnight. Unfortunately, it revealed extensive pancreatic necrosis with small areas of residual pancreatic tissue in the distal tail, head, and unc inate process. There is worsening extensive peripancreatic inflammatory changes and abdominopelvic fluid with areas of loculated fluid along the lesser curvature of the stomach and within the p mc, which do not demonstrate defined enhancement to suggest abscess or pseudocyst formation . There is also bilateral pleural effusion and anasarca, new compared to the prior; nonspecific mil d wall thickening enhancement of the common bile duct, which can be seen in a patient with cholangit is; complicated cyst at the lower pole of the left kidney with spontaneous internal hyperdense mater ial and peripheral calcification; mildly dilated small bowel loops in the ventral mid abdomen, consi stent with mild . There is bilateral nonobstructing nephrolithiasis and a small fat-containing right inguinal hernia. Dr. Rebolledo, the hepatobiliary specialist, was consulted. The patient will be kept n.p.o. and will be monitored closely. Currently, there is no indication for surgery. The pa tient overall is hemodynamically stable. The patient is now kept n.p.o. PHYSICAL EXAMINATION VITAL SIGNS: Temperature is 98.8, pulse 77, respirations 21, blood pressure 124/77, saturation 97%. GENERAL: The patient is in no acute distress. HEAD, EARS, EYES, NOSE, AND THROAT: Normocephalic, atraumatic. Left forehead wound. The patient i s pale. CARDIOVASCULAR: S1 and S2. Regular rate. LUNGS: Clear, but decreased breath sounds bilaterally. ABDOMEN: Soft, distended. Slight discomfort upon deep palpation. EXTREMITIES: Right upper extremity +1 to 2 edema. The patient with right AKA with slight edema thr oughout otherwise. LABORATORY DATA: White count is 24, hemoglobin 8.7, hematocrit 26, platelet count is 87, neutrophil s 55%. Chemistry: Sodium is 140, potassium 3.9, chloride 107, bicarbonate 26, BUN is 48, creatinin e 2.6, and glucose of 147. Kidney function continues to improve. Glucose level is 211. Magnesium is low at 1.5. The patient's Accu-Cheks are as follows: 211, 232, and 169. FURTHER MEDICATIONS: 1. b.i.d. topically. 2. Merrem IV dose per Pharmacy. 3. Lantus 20 units daily. 4. Fluconazole q. 24 hours. 5. Vancomycin dose per Pharmacy. 6. Xopenex every 4 hours. 7. Insulin aspart per sliding scale. 8. Lopressor 50 q. 6. 9. Protonix 40 mg daily. 10. Zyprexa 2.5 b.i.d. 11. Hypoglycemia protocol as directed. 12. Dilaudid p.r.n. 13. Zofran p.r.n. 14. DuoNeb as directed. 15. Ativan. 16. Vancomycin. ASSESSMENT AND PLAN: This is an unfortunate, 67-year-old, male with history of meningioma , status post craniotomy, diabetes mellitus, left forehead wound, chronic kidney disease (CKD), righ t [id number] amputation who presented with acute pancreatitis, tachycardia, septic, and worsenin g kidney function with metabolic acidosis. 1. Respiratory: Stable. Monitor for fluid overload state. Continue O2 support. 2. Cardiovascular: Remains stable. Continue beta blockers. 3. Infectious Disease: The patient may just have leukocytosis secondary to pancreatic inflammation . ID is following. May consider deescalating antibiotics. 4. Acute pancreatitis and abdominal pain with some necrosis. I appreciate the hepatobiliary specia list's recommendation. The patient to be kept n.p.o. for now, and we will put him on gentle hydrati on to prevent also fluid overload state, as the patient has some ascites and peripheral edema. 5. Dysphagia. N.p.o. for now. 6. Encephalopathy, slightly improved from admission. Observe. 7. Diabetes mellitus. We will increase Insulin Lantus to 20 units in the morning and 10 at night. 8. Keep in the ICU per Surgical team. 9. Acute on chronic renal insufficiency, improved. Monitor electrolytes. 10. Psychiatric disorder. Continue Zyprexa 11. Make sure the patient is comfortable. We will follow. Dictated By: DOMINGO GILMORE/DAVIE Conf#: [id number] DID#: [id number] CC: DOMINGO ARELLANO MD;*EndCC*
--- NOTE | 2017-05-12 07:58 | PN ---
DATE: 05/09/2017 SUBJECTIVE: No events overnight. The patient is awake, confused, looks comfortable, no fevers. VITAL SIGNS: Temperature 98, pulse 85, respirations 16, blood pressure 128/68, saturation 96% on na lola cannula. WBC 21.4, H and H 9.1 and 28, platelets 141, bands 11, BUN 62, creatinine 2.19, glucose 259. MICROBIOLOGY: Urine culture grew yeast. ANTIMICROBIALS: The patient is on: 1. Vancomycin. 2. Merrem. 3. Fluconazole. DIAGNOSTICS: The patient's chest x-ray from yesterday revealed mild atelectasis and cardiomegaly. INDWELLINGS: Left upper extremity PICC line. PHYSICAL EXAMINATION: GENERAL: This is a chronically ill-appearing, elderly man who is awake, in no distress. HEENT: Head atraumatic, normocephalic. Sclerae anicteric. Buccal mucosa dry. NECK: Supple. CHEST: Rise symmetrical. Breath sounds diminished to bases. HEART: S1, S2. ABDOMEN: Distended, soft. Bowel tones hypoactive. EXTREMITIES: Without cyanosis. ASSESSMENT: 1. Sepsis, status post shock. 2. Persistent leukocytosis, patient remains on broad spectrum antibiotics. Blood cultures have bee n negative, started on fluconazole for yeast growing in his urine. 3. Acute pancreatitis on admission with lipase went down to normal. 4. Acute encephalopathy with mental status, improving. 5. Diabetes. 6. Hypertension. 7. History of meningioma status post craniotomy with left occipital methicillin-resistant Staphyloc occus aureus positive wound. Repeat blood cultures negative. 8. Acute on chronic kidney disease. PLAN: The patient remains hemodynamically stable and clinically improving. He is being followed by multiple consultants. We will continue him on current antimicrobials. Continue anti-aspiration me asures. Follow chest x-ray. Dictated By: JOHNNIE BARCLAY LOG SORTER for GENARO MARIE/DAVIE Conf#: [id number] DID#: [id number]
[2017-05-12] MEDS: DEXTROSE 5%-0.9% NACL 1,000 ML IV SCH (08:25)
[2017-05-12] MEDS ORDERED: MAGNESIUM SULFATE 2 GM/50 ML 50 ML IVPB ONE (08:30)
[2017-05-12] MEDS: INSULIN GLARGINE [LANtus] 3 ML PEN SC SCH (08:35)
[2017-05-12] MEDS: BALSAM PERU/CASTOR OIL 60 GM TUBE TOP SCH ×2 (08:37→20:45)
[2017-05-12] MEDS: NYSTATIN 30 GM POWDER BTL TOP SCH ×2 (08:37→20:45)
[2017-05-12] MEDS: MEROPENEM 1 GM/50ML(PMX) 50 ML IVPB SCH ×2 (08:39→20:44)
[2017-05-12] MEDS: OLANZAPINE 2.5 MG TAB PO SCH ×2 (08:40→20:44)
[2017-05-12] MEDS: SOD CHLORIDE 0.9% 1,000 ML IV SCH (08:54)
--- NOTE | 2017-05-12 09:14 | PN ---
DATE: 05/12/2017 SUBJECTIVE: The patient is stable. No events noted. No fevers, chills, nausea or vomiting. OBJECTIVE: VITAL SIGNS: Blood pressure is 140/68, pulse 97, respiration 19, temperature 98.6. HEENT: Head is normocephalic. NECK: Supple. HEART: Regular rate. LUNGS: Show diminished breath sounds at the base. ABDOMEN: Soft, nontender to palpation. No rebound or guarding. EXTREMITIES: Negative for clubbing, cyanosis, edema. DERMATOLOGIC: No rashes. MUSCULOSKELETAL: No joint effusions. NEUROLOGIC: No change in exam. MEDICATIONS: The patient's medications have been reviewed. LABORATORY DATA: Shows sodium 142, potassium 3.9, BUN 36, creatinine 1.61, magnesium 1.6. White co unt 22.8, hemoglobin 8.7, hematocrit 25.3, platelet count 226. ASSESSMENT AND PLAN: 1. Nonoliguric acute kidney injury, etiology secondary to acute tubular necrosis. Renal function h as slowly been improving. Continue current treatment plan, supportive care, renally dose all meds. 2. Hypomagnesemia. Replete with magnesium sulfate. 3. Severe sepsis status post shock. The patient is clinically improving. Continue current antibio tic regimen. 4. Severe pancreatitis. Continue current medical management. 5. Diabetes. Continue current insulin regimen. 6. History of below the knee amputation. 7. Encephalopathy toxic metabolic. Continue to monitor. Dictated By: GEN VALENZUELA/DAVIE Conf#: [id number] DID#: [id number]
--- NOTE | 2017-05-12 09:30 | CONS ---
Date/Time of Note Date/Time of Note DATE: 05/12/17 TIME: 09:29 Consult Date/Type/Reason Admit Date/Time May 02, 2017 at 14:03 Initial Consult Date 05/03/17 Type of Consultation: Pulmonary Ordering Provider: BRYAN MINOR DO Subjective Patient appears comfortable this morning. Less agitated. Remains hemodynamically stable. Objective Vital Signs Date Time Temp Pulse Resp B/P Pulse Ox O2 Delivery O2 Flow Rate FiO2 05/12/17 08:00 65 05/12/17 08:00 Nasal Cannula 2.0 05/12/17 07:45 98.5 23 153/75 100 Intake and Output 05/11/17 05/11/17 05/12/17 15:00 23:00 07:00 Intake Total 820 ml 260 ml Output Total 800 ml 880 ml 1032 ml Balance 20 ml -620 ml -1032 ml Exam GENERAL: VITAL SIGNS: per chart well-nourished well-developed gentleman comfortable at rest NECK: Supple. No JVD or lymphadenopathy. CARDIAC EXAM: S1, S2. No added sounds or murmurs. CHEST: clear bilaterally, No added sounds, rales or wheezes ABDOMEN: Soft, nontender. No guarding or rebound. EXTREMITIES: No cyanosis, clubbing or edema. NEUROLOGIC: Generalized weakness. No focal deficits. Results/Medications Result Diagram: 05/12/17 0500 05/12/17 0500 Results 24 hrs Laboratory Tests Test 05/11/17 11:54 05/11/17 17:22 05/11/17 17:43 05/11/17 18:05 Bedside Glucose 120 67 L 106 98 Test 05/11/17 20:23 05/12/17 00:45 05/12/17 04:00 05/12/17 05:00 Bedside Glucose 104 105 Phosphorus Level 3.8 Magnesium Level 1.6 L White Blood Count 22.8 H Red Blood Count 2.70 L Hemoglobin 8.7 L Hematocrit 25.3 L Mean Corpuscular Volume 93.7 Mean Corpuscular Hemoglobin 32.2 Mean Corpuscular Hemoglobin Concent 34.4 Red Cell Distribution Width 13.9 Platelet Count 226 # Mean Platelet Volume 11.0 H Neutrophils % 88.1 H Lymphocytes % 4.3 L Monocytes % 4.0 Eosinophils % 0.9 Basophils % 0.2 Nucleated Red Blood Cells % 0.0 Neutrophils # 20.1 H Lymphocytes # 1.0 Monocytes # 0.9 Eosinophils # 0.2 Basophils # 0.0 Nucleated Red Blood Cells # 0.0 Sodium Level 142 Potassium Level 3.9 Chloride Level 109 Carbon Dioxide Level 28 Anion Gap 9 Blood Urea Nitrogen 36 H Creatinine 1.61 H Glucose Level 106 Calcium Level 8.4 Total Bilirubin 0.6 Direct Bilirubin 0.00 Indirect Bilirubin 0.6 Aspartate Amino Transf (AST/SGOT) 22 Alanine Aminotransferase (ALT/SGPT) 28 Alkaline Phosphatase 127 H Total Protein 4.8 L Albumin 1.9 L Globulin 2.90 Albumin/Globulin Ratio 0.65 Test 05/12/17 05:08 05/12/17 08:33 Bedside Glucose 116 137 Medications Current Medications Ondansetron HCl (Zofran Inj) 4 mg Q6H PRN IV NAUSEA AND/OR VOMITING Last administered on 05/09/17 12:58; Admin Dose 4 MG; Start 05/02/17 at 19:00 Lorazepam (Ativan) 0.5 mg Q2H PRN IV ANXIETY Last administered on 05/11/17 03 :33; Admin Dose 0.5 MG; Start 05/02/17 at 19:00 Hydromorphone HCl (Dilaudid) 1 mg Q4H PRN IV PAIN LEVEL 7-10 Last administered on 05/12/17 00:40; Admin Dose 1 MG; Start 05/02/17 at 23:00 Miscellaneous Information 1 ea NOTE XX ; Start 05/03/17 at 14:00 Glucose (Glutose) 15 gm Q15M PRN PO DECREASED GLUCOSE; Start 05/03/17 at 14:00 Glucose (Glutose) 22.5 gm Q15M PRN PO DECREASED GLUCOSE; Start 05/03/17 at 14: 00 Dextrose (D50w Syringe) 25 ml Q15M PRN IV DECREASED GLUCOSE Last administered on 05/11/17 17:25; Admin Dose 25 ML; Start 05/03/17 at 14:00 Dextrose (D50w Syringe) 50 ml Q15M PRN IV DECREASED GLUCOSE; Start 05/03/17 at 14:00 Glucagon (Glucagen) 1 mg Q15M PRN IM DECREASED GLUCOSE; Start 05/03/17 at 14:00 Glucose (Glutose) 15 gm Q15M PRN BUCCAL DECREASED GLUCOSE; Start 05/03/17 at 14 :00 Bisacodyl 10 mg 10 mg DAILY PRN GA CONSTIPATION Last administered on 05/04/17 17:20; Admin Dose 10 MG; Start 05/03/17 at 17:00 Phenylephrine HCl/ Dextrose (Dean-Syneph/D5W) 250 ml @ 0 mls/hr TITRATE IV Last administered on 05/04/17 17:15; Admin Dose 20 MLS/HR; Start 05/03/17 at 17:00 Miscellaneous Information ([facility]) This patient bustillo... PRN PRN XX WOUND CARE; Start 05/03/17 at 19:00 Olanzapine (Zyprexa) 2.5 mg BID PO Last administered on 05/12/17 08:40; Admin Dose 2.5 MG; Start 05/06/17 at 21:00 Pantoprazole (Protonix Tab) 40 mg DAILY@06 PO Last administered on 05/12/17 06:32; Admin Dose 40 MG; Start 05/07/17 at 06:00 Metoprolol Tartrate (Lopressor) 50 mg Q6 PO Last administered on 05/12/17 06: 33; Admin Dose 50 MG; Start 05/07/17 at 12:00 Insulin Aspart (Novolog Insulin Pen) NOVOLOG *MODERATE* ALGORI... Q4 SC Last administered on 05/10/17 20:43; Admin Dose 2 UNIT; Start 05/07/17 at 21:00 Insulin Glargine 20 unit 20 unit DAILY@08 SC Last administered on 05/12/17 08 :35; Admin Dose 20 UNIT; Start 05/09/17 at 08:00 Fluconazole/ Sodium Chloride 50 ml @ 50 mls/hr Q24H IVPB Last administered on 05/11/17 14:27; Admin Dose 50 MLS/HR; Start 05/08/17 at 13:30 Meropenem/Sodium Chloride (Merrem 1 Gm/50 ml (Pmx)) 50 ml @ 100 mls/hr Q12 IVPB Last administered on 05/12/17 08:39; Admin Dose 100 MLS/HR; Start 05/09 at 11:30 Nystatin (Nystatin Powder) 1 applic BID TOP Last administered on 05/12/17 08: 37; Admin Dose 1 APPLIC; Start 05/10/17 at 10:00 Insulin Glargine 10 unit 10 unit DAILY@20 SC Last administered on 05/11/17 20 :47; Admin Dose 10 UNIT; Start 05/10/17 at 20:00 Sodium Chloride 1,000 ml @ 70 mls/hr [id number] IV Last administered on 03:32; Admin Dose 70 MLS/HR; Start 05/10/17 at 14:00 Vancomycin HCl 250 ml @ 125 mls/hr Q24H IVPB Last administered on 05/11/17 11:29; Admin Dose 125 MLS/HR; Start 05/11/17 at 11:30 Dextrose/Sodium Chloride 1,000 ml @ 70 mls/hr [id number] IV Last administered on 05/12/17 08:25; Admin Dose 70 MLS/HR; Start 05/11/17 at 18:00 Magnesium Sulfate (Magnesium Sulfate 2 Gm/50 ml) 50 ml @ 25 mls/hr ONCE ONCE IVPB Last administered on 05/12/17 08:30; Admin Dose 25 MLS/HR; Start at 08:30; Stop 05/12/17 at 10:29 Assessment/Plan Chief Complaint/Hosp Course Assessment 1. Acute pancreatitis 2. Leukocytosis possibly inflammatory 3. Bibasilar atelectasis 4. Encephalopathy likely toxic metabolic 5. Mild renal insufficiency Plan 1. Continue surgical recommendations 2. Aspiration precautions 3. Physical therapy if tolerated 4. Volume resuscitation 5. DVT GI prophylaxis Stable for transfer to [facility] from pulmonary standpoint Problems: JAVIER DODSON MD, [facility] May 12, 2017 09:30
--- NOTE | 2017-05-12 11:18 | PN ---
Date/Time of Note Date/Time of Note DATE: 05/12/17 TIME: 11:11 Assessment/Plan Lines/Catheters IV Catheter Type (from Nrs): PICC Line High in Place (from Nrs): Yes Assessment/Plan Chief Complaint/Hosp Course 1. Abdominal pain 2nd pancreatitis with ileus. Improving leukocytosis with pancreatic necrosis. No large body of fluid collections. HBS input appreciated ; much improved abdominal pain -pain management -continue to monitor -no abx per HBS -close monitoring 2. Sepsis with lactic acidosis; +Urine cx, ? other. Improving -supportive -as above 3. BMI 29 -eventual diet/exercise optimization 4. ARF: increasing uop today, cr much improved -judicious fluids -avoid nephrotoxic meds -poss HD per renal 5. Uncontrolled Diabetes: blood sugar labile -optimize sugar control -eventual diet optimization 6. Constipation/Ileus: Improved with bowel function; -optimize bowel regimen eventually 7. Electrolyte imbalance -optimize lytes Thank you. Patient seen and examined in collaboration with Dr. Jerome Marie. Problems: Subjective 24 Hr Interval Summary Patient feeling much better. No abdominal pain-+bowel function. No fevers, chills, sob, congested cough, n/v/d/dysuria, dizziness, cp, palpitations. Sitting up at bedside with PT. Exam/Review of Systems Vital Signs Vitals Vital Signs Date Time Temp Pulse Resp B/P Pulse Ox O2 Delivery O2 Flow Rate FiO2 05/12/17 10:00 67 21 132/61 98 Nasal Cannula 05/12/17 08:00 2.0 05/12/17 07:45 98.5 Intake and Output 05/11/17 05/11/17 05/12/17 15:00 23:00 07:00 Intake Total 820 ml 260 ml Output Total 800 ml 880 ml 1032 ml Balance 20 ml -620 ml -1032 ml Exam Free Text/Dictation Constitutional: alert, no distress, oriented, improved energy Psych: min anxiety Head: atraumatic, normocephalic, other (left head wound (shunt) with scant yellow drainage) Eyes: nl lids, nl sclera ENMT: mucosa pink and moist, nl nasal mucosa & septum Neck: non-tender, no jvd, supple Respiratory: normal resp effort, no wheezing Cardiovascular: s1s2 Gastrointestinal: softer, improved distention, non tender, umbilical hernia, no skin discoloration. No rebound or guarding Musculoskeletal: Right aka, stump clean. Moves extremities. No edema Neurological: nl mental status, delayed speech Lymphatics: No cervical or inguinal LNs Results Result Diagram: 05/12/1749905/12/17499 JEB LIRIANO NP May 12, 2017 11:18
[2017-05-12] MEDS: VANCOMYCIN 1 GM in NS 250 ML IVPB SCH (12:13)
[2017-05-12] MEDS: FLUCONAZOLE 100 MG/NS (PMX) 50 ML IVPB SCH (13:25)
--- NOTE | 2017-05-12 14:39 | PN ---
DATE: 05/12/2017 SUBJECTIVE: Patient seen and remains comfortable on nasal cannula. Patient requesting to eat. Not ed surgical and hepatobiliary recommendations. PHYSICAL EXAMINATION: VITAL SIGNS: Temperature 98.3, pulse 76, respirations 25, blood pressure 147/70, saturation 99%. GENERAL: The patient is in no acute distress. HEENT: Temporal area with wound. The patient is pale. CARDIOVASCULAR: S1, S2. Regular rate. LUNGS: Clear. ABDOMEN: Remains distended. Upon deep palpation, there is mild discomfort in the right mid abdomen and left abdomen. EXTREMITIES: Trace edema on the left lower extremity. He has an above the knee amputation on the r ight. I instructed the nursing staff to place SCDs on the left leg. LABORATORY DATA: White count is slightly better at 22.8, hemoglobin 8.7, hematocrit 25, platelet co unt 226, neutrophils 88%, lymphocytes 4%. Chemistry: Sodium is 142, potassium 3.9, chloride 109, b icarbonate 28, BUN is 36, creatinine 1.61, glucose 106, alkaline phosphatase 127, albumin is low at 1.9. Stool occult blood turned out to be negative. No ABG today. MEDICATIONS: Reviewed. 1. D5 normal saline at 70 mL an hour. 2. Vancomycin dosed per pharmacy. 3. Lantus 10 units daily. 4. Nystatin b.i.d. 5. Merrem 1 gram IV q. 12h. 6. IV steroids. 7. Insulin Lantus 20 units daily. 8. Diflucan IV daily. 9. Xopenex q.4h. 10. Lovenox q.4h. 11. Lopressor 50 q. 6h. 12. Protonix 40 mg daily. 13. Zyprexa 2.5 b.i.d. 14. Hypoglycemia protocol as directed. 15. Zofran. 16. DuoNeb. 17. Ativan 18. Vancomycin as directed. ASSESSMENT AND PLAN: This is a 67-year-old male with history of meningioma status post cr aniotomy, diabetes mellitus, left forehead wound, chronic kidney disease, right above the knee amput ation who presented with acute pancreatitis, tachycardia, sepsis, worsening kidney function with met abolic acidosis. 1. Respiratory stable. Continue O2 support as needed. 2. Cardiovascular. Vitals are stable. Blood pressure is overall controlled. The patient is on me toprolol. 3. Acute renal failure, stable on gentle hydration. 4. Diabetes mellitus. Glucose levels are as follows: 137, 116 105 on D5. Continue current regime n of the Lantus. We will decrease the dose once fluids will be held. 5. Acute pancreatitis with necrosis. Hepatobiliary is following. Will advance diet when deemed ok ay by surgical team. 6. Encephalopathy, better than admission observe. 7. Clinically, appears stable to be discharged, downgraded to the tele floor. 8. Psychiatric disorder. Continue Zyprexa. 9. Make sure patient is comfortable. Monitor bowel movements. Monitor pain. Monitor fever. Cont inue with daily labs. Dictated By: DOMINGO GILMORE/DAVIE Conf#: [id number] DID#: [id number]
--- NOTE | 2017-05-12 14:50 | PN ---
DATE: 05/12/2017 INFECTIOUS DISEASE PROGRESS NOTE SUBJECTIVE: No acute changes overnight per report. The patient is sleeping, looks comfortable, no fevers. VITAL SIGNS: Temperature 98.3, pulse 86, respirations 25, blood pressure 147/77, saturation 99%. LABORATORY DATA: WBC today 22.8, H and H 8.7 and 25.8, platelets 226, neutrophils 88.1, BUN 36, cre atinine 1.61. MICROBIOLOGY: Urine culture grew Beatrice albicans. ANTIMICROBIALS: Patient is on vanc, Merrem, fluconazole. INDWELLINGS: High, PICC line. PHYSICAL EXAMINATION: GENERAL: This is an obese, well-developed elderly man who is in no distress. HEENT: Head atraumatic, normocephalic. Sclerae anicteric. Buccal mucosa dry. NECK: Supple. CHEST: Rise symmetrical. Breath sounds diminished to bases. HEART: S1, S2. ABDOMEN: Distended, soft. Bowel tones hypoactive. EXTREMITIES: Without cyanosis. ASSESSMENT: 1. Status post septic shock. 2. Persistent leukocytosis secondary to #2. 3. Acute necrotizing pancreatitis. 4. Diabetes. 5. Peripheral vascular disease, history of right below knee amputation. 6. History of meningioma, status post craniotomy with left occipital wound culture previously growi ng methicillin-resistant Staphylococcus aureus, now negative. 7. Acute on chronic kidney disease. 8. Encephalopathy. PLAN: The patient remains hemodynamically stable. He is on broad spectrum antibiotics. Surgery on case. We will continue him on current regimen. Will continue anti-aspiration precautions. Dictated By: JOHNNIE BARCLAY [employer] for GENARO MARIE/DAVIE Conf#: [id number] DID#: [id number]
--- NOTE | 2017-05-12 16:13 | CONS ---
Date/Time of Note Date/Time of Note DATE: 05/12/17 TIME: 16:09 Consult Date/Type/Reason Admit Date/Time May 02, 2017 at 14:03 Initial Consult Date 05/03/17 Type of Consultation: cardiology Reason for Consultation CARDIOLOGY FOLLOW UP NOTE: S: d/w staff and rhythm was reviewed. pt remains in NSR and BP has been well controlled now he has less abdominal pain. he denies any cp or sob to me. he is still in ICU he wants to eat O: General: in no distress HEENT: NC/AT. pupils are equal. round. NECK: NO JVD. no stridor. CV: tachycardic. . systolic murmur; no gallop or rubs. PULM: no wheezing or rhonchi. GI: mild tenderness. no rebound. no guarding Extremity: s/p R LE amputation. neuro: awake and alert. with right sided weakness Psych: calm and pleasant rectal: deferred : normal male ECHO Personally reviewed: 1. Hyperdynamic left ventricular systolic function. Normal left ventricular cavity size. Mild concentric left ventricular hypertrophy. Ejection fraction is visually estimated at 70 %. Abnormal Diastolic Function. 2. The left atrium is normal in size. 3. Mild mitral leaflet calcification. Mild mitral annular calcification. Trace mitral regurgitation. 4. No significant aortic stenosis or insufficiency. Aortic cusps appear mildly calcified. Non coronary cusp appears moderately calcified. 5. Normal appearance of the tricuspid valve. Estimated peak PA systolic pressure 56 mmHg. There is mild tricuspid regurgitation. 6. The IVC is not well visualized. Ordering Provider: BRYAN MINOR DO Objective Vital Signs Date Time Temp Pulse Resp B/P Pulse Ox O2 Delivery O2 Flow Rate FiO2 05/12/17 14:00 62 18 142/74 97 Nasal Cannula 05/12/17 11:00 98.3 05/12/17 08:00 2.0 Intake and Output 05/11/17 05/11/17 05/12/17 15:00 23:00 07:00 Intake Total 820 ml 260 ml 70 ml Output Total 800 ml 880 ml 1032 ml Balance 20 ml -620 ml -962 ml Results/Medications Result Diagram: 05/12/17 0500 05/12/17 0500 Results 24 hrs Laboratory Tests Test 05/11/17 17:22 05/11/17 17:43 05/11/17 18:05 05/11/17 20:23 Bedside Glucose 67 L 106 98 104 Test 05/12/17 00:45 05/12/17 04:00 05/12/17 05:00 05/12/17 05:08 Bedside Glucose 105 116 Phosphorus Level 3.8 Magnesium Level 1.6 L White Blood Count 22.8 H Red Blood Count 2.70 L Hemoglobin 8.7 L Hematocrit 25.3 L Mean Corpuscular Volume 93.7 Mean Corpuscular Hemoglobin 32.2 Mean Corpuscular Hemoglobin Concent 34.4 Red Cell Distribution Width 13.9 Platelet Count 226 # Mean Platelet Volume 11.0 H Neutrophils % 88.1 H Lymphocytes % 4.3 L Monocytes % 4.0 Eosinophils % 0.9 Basophils % 0.2 Nucleated Red Blood Cells % 0.0 Neutrophils # 20.1 H Lymphocytes # 1.0 Monocytes # 0.9 Eosinophils # 0.2 Basophils # 0.0 Nucleated Red Blood Cells # 0.0 Sodium Level 142 Potassium Level 3.9 Chloride Level 109 Carbon Dioxide Level 28 Anion Gap 9 Blood Urea Nitrogen 36 H Creatinine 1.61 H Glucose Level 106 Calcium Level 8.4 Total Bilirubin 0.6 Direct Bilirubin 0.00 Indirect Bilirubin 0.6 Aspartate Amino Transf (AST/SGOT) 22 Alanine Aminotransferase (ALT/SGPT) 28 Alkaline Phosphatase 127 H Total Protein 4.8 L Albumin 1.9 L Globulin 2.90 Albumin/Globulin Ratio 0.65 Test 05/12/17 08:33 05/12/17 13:10 Bedside Glucose 137 178 Medications Current Medications Ondansetron HCl (Zofran Inj) 4 mg Q6H PRN IV NAUSEA AND/OR VOMITING Last administered on 05/09/17 12:58; Admin Dose 4 MG; Start 05/02/17 at 19:00 Lorazepam (Ativan) 0.5 mg Q2H PRN IV ANXIETY Last administered on 05/11/17 03 :33; Admin Dose 0.5 MG; Start 05/02/17 at 19:00 Hydromorphone HCl (Dilaudid) 1 mg Q4H PRN IV PAIN LEVEL 7-10 Last administered on 05/12/17 00:40; Admin Dose 1 MG; Start 05/02/17 at 23:00 Miscellaneous Information 1 ea NOTE XX ; Start 05/03/17 at 14:00 Glucose (Glutose) 15 gm Q15M PRN PO DECREASED GLUCOSE; Start 05/03/17 at 14:00 Glucose (Glutose) 22.5 gm Q15M PRN PO DECREASED GLUCOSE; Start 05/03/17 at 14: 00 Dextrose (D50w Syringe) 25 ml Q15M PRN IV DECREASED GLUCOSE Last administered on 05/11/17 17:25; Admin Dose 25 ML; Start 05/03/17 at 14:00 Dextrose (D50w Syringe) 50 ml Q15M PRN IV DECREASED GLUCOSE; Start 05/03/17 at 14:00 Glucagon (Glucagen) 1 mg Q15M PRN IM DECREASED GLUCOSE; Start 05/03/17 at 14:00 Glucose (Glutose) 15 gm Q15M PRN BUCCAL DECREASED GLUCOSE; Start 05/03/17 at 14 :00 Bisacodyl 10 mg 10 mg DAILY PRN [place] CONSTIPATION Last administered on 05/04/17 17:20; Admin Dose 10 MG; Start 05/03/17 at 17:00 Phenylephrine HCl/ Dextrose (Dean-Syneph/D5W) 250 ml @ 0 mls/hr TITRATE IV Last administered on 05/04/17 17:15; Admin Dose 20 MLS/HR; Start 05/03/17 at 17:00 Miscellaneous Information (Pending [facility] Order For Wound Care) This patient bustillo... PRN PRN XX WOUND CARE; Start 05/03/17 at 19:00 Olanzapine (Zyprexa) 2.5 mg BID PO Last administered on 05/12/17 08:40; Admin Dose 2.5 MG; Start 05/06/17 at 21:00 Pantoprazole (Protonix Tab) 40 mg DAILY@06 PO Last administered on 05/12/17 06:32; Admin Dose 40 MG; Start 05/07/17 at 06:00 Metoprolol Tartrate (Lopressor) 50 mg Q6 PO Last administered on 05/12/17 12: 14; Admin Dose 50 MG; Start 05/07/17 at 12:00 Insulin Aspart (Novolog Insulin Pen) NOVOLOG *MODERATE* ALGORI... Q4 SC Last administered on 05/12/17 13:12; Admin Dose 2 UNIT; Start 05/07/17 at 21:00 Insulin Glargine 20 unit 20 unit DAILY@08 SC Last administered on 05/12/17 08 :35; Admin Dose 20 UNIT; Start 05/09/17 at 08:00 Fluconazole/ Sodium Chloride 50 ml @ 50 mls/hr Q24H IVPB Last administered on 05/12/17 13:25; Admin Dose 50 MLS/HR; Start 05/08/17 at 13:30 Meropenem/Sodium Chloride (Merrem 1 Gm/50 ml (Pmx)) 50 ml @ 100 mls/hr Q12 IVPB Last administered on 05/12/17 08:39; Admin Dose 100 MLS/HR; Start 05/09 at 11:30 Nystatin (Nystatin Powder) 1 applic BID TOP Last administered on 05/12/17 08: 37; Admin Dose 1 APPLIC; Start 05/10/17 at 10:00 Insulin Glargine 10 unit 10 unit DAILY@20 SC Last administered on 05/11/17 20 :47; Admin Dose 10 UNIT; Start 05/10/17 at 20:00 Vancomycin HCl 250 ml @ 125 mls/hr Q24H IVPB Last administered on 05/12/17 12:13; Admin Dose 125 MLS/HR; Start 05/11/17 at 11:30 Dextrose/Sodium Chloride (D5-NS) 1,000 ml @ 70 mls/hr [id number] IV Last administered on 05/12/17 08:25; Admin Dose 70 MLS/HR; Start 05/11/17 at 18:00 Miscellaneous Information (*Rx Drug Level Order Reminder*) VANCO TROUGH @ 1, 030 ON ... ONCE ONCE XX ; Start 05/13/17 at 10:30; Stop 05/13/17 at 10:31 Assessment/Plan Chief Complaint/Hosp Course 1. Sinus tachycardia secondary to below. 2. Severe sepsis and septic shock. 3. Severe pancreatitis. 4. Diabetes. 7. Severe metabolic acidosis. 8. HX of Hypertension, currently in shock and hypotensive. 9. History of dyslipidemia. 10. History of RLE amputation. 11. History of craniotomy and meningioma, status post craniotomy. 12. History of seizure disorder. 13. JESUSITA on CKD. :improving now 14. hypo Na. 15. mildly abnormal trop due to above 16. HTN RECOMMENDATIONS: Antibiotic is managed as per infectious disease and Dr. Lobel. echo reviewed and did not show any evidence of LV dysfunction or effusion to explain the pt's tachycardia Electrolytes will be checked periodically and adjusted. cont Insulin. cont metoprlol at current dose or 100 bid f.u with renal consultants rec. diuresis prn to be adjusted by renal f/u surgery rec THANK YOU CARMEN MELO MD [facility]. Problems: CARMEN MELO MD May 12, 2017 16:12
--- NOTE | 2017-05-12 16:52 | PN ---
Date/Time of Note Date/Time of Note DATE: 05/12/17 TIME: 16:49 Assessment/Plan Lines/Catheters IV Catheter Type (from Nrs): PICC Line High in Place (from Nrs): Yes Assessment/Plan Assessment/Plan [facility] Progress Note Date of Service: 05/12/2017 Location of Service: ICU Today's Assessment & Plan: Overall stable with sig mental status improvement (? contribution of sedatives/ pain meds vs. improvement in pancreatitis or both as the reason). Abdomen remains benign. No indications of major postoperative complications or wound problems. No indication for acute surgical intervention. Awaiting further return of bowel function. WBC elevation is expected in this setting and I do not believe there is infected necrosis. Previous assessment that applies today: A very-pleasant but unfortunate 67-year-old gentleman with multiple comorbidities including DM2 and prior CVA among others (please see below), presenting with acute pancreatitis complicated by necrosis but without obvious evidence of infected necrosis. Etiology of pancreatitis is likely gallstone related. Condition is tenuous and prognosis is guarded given his multiple comorbidities, including malnutrition, DM2, CVA, renal insufficiency, institutionalized status, amputation, etc. With above assessment, I've recommended the followin. Keep in-house and in the ICU for today 2. Clear liquid diet 3. Intravenous fluids 4. Consider discontinuing antimicrobials (elevated WBC likely due to inflammatory response of the pancreatitis) 5. Strict I's and O's 6. Labs in a.m. 7. Ok to d/c to tele from my standpoint 8. Long-term plan would be inpatient or outpatient lap joel to help prevent future episodes 9. Please avoid contrast in axial images since likely will not global climate change researcher 10. Please include me in all major decisions, specially decisions to scan the patient or to intervene with IR (very important to maintain multidisciplinary care for maximum value) Thank you very much for having me involved in the care of this very pleasant patient and I'm certain wonderful family. If you have any questions, please feel free to contact me at [phone]. Nature of presenting problem: High severity Please note that, given the extensive number of diagnoses or management options , the extensive amount and/or complexity of data needed to be reviewed, and high risk of complications and/or morbidity or mortality, this qualifies as high complexity type of decision-making. Disclaimers: 1. Inadvertent spelling and grammatical errors are likely due to electronic health record (EHR)/dictation software used and do not reflect on the quality of delivered patient care. 2. The electronic timestamp recorded on this note does not necessarily reflect the actual date and time of the visit or the service. 3. Portions of this note may have been created through electronic templates and computer algorithms that might bring in information either from the system or from other physicians and providers. Please note that such information may or may not contain errors, the occurrence of which are outside of my control. In general (but not always) this happens either in the beginning or at the end of the note. The portion of the note that I have created are generally done in 1 continuous block of text, flanked at the beginning and at the end by " ", and entered into one field in the EHR. 4. There may be other unanticipated errors in the note that are outside of my control. I can only attest to the portions of the note that I have created. Updated clinical summary: A very-pleasant but unfortunate 67-year-old gentleman with multiple comorbidities including DM2 and prior CVA among others (please see below), presenting with acute pancreatitis complicated by necrosis but without obvious evidence of infected necrosis. Etiology of pancreatitis is likely gallstone related. Comorbidities: 1. BMI 29 2. Diabetes mellitus, complicated by vascular disease (s/p R BKA) 3. CVA with right-sided weakness 4. Dyslipidemia 5. Seizure disorder 6. Bipolar disorder 7. History of CKD 8. Hypertension 9. Malnutrition (Albumin 2.3 [facility] 05/10/17) 10. Expressive aphasia 11. Depression 12. Left scalp wound 13. Meningioma resection 2016 (Dr. Christian) 14. Rehab patient ([facility]) Subjective: No major events or complaints; reported minimal abd pain and under control with medications; reports being hungry; no n/v/d; no sob or cp; + bowel activity; + flatus; + BM and normal;- activity Objective: Vitals: See below Exam: GENERAL: On exam, the patient was laying in bed and appeared to be comfortable and in no acute distress. ABDOMEN: Soft, nontender and nondistended. There are no peritoneal signs or guarding. SKIN: Skin appears to be pink and feels warm to touch. NEUROLOGIC: Patient is awake, alert and followed commands appropriately. Exam/Review of Systems Vital Signs Vitals Vital Signs Date Time Temp Pulse Resp B/P Pulse Ox O2 Delivery O2 Flow Rate FiO2 05/12/17 16:00 67 05/12/17 16:00 98.5 24 143/75 96 Nasal Cannula 05/12/17 08:00 2.0 Intake and Output 05/11/17 05/11/17 05/12/17 14:59 22:59 06:59 Intake Total 770 ml 380 ml Output Total 825 ml 795 ml 1192 ml Balance -55 ml -415 ml -1192 ml Results Result Diagram: 05/12/17 0500 05/12/17 0500 CARA ROY M.D. May 12, 2017 16:52
[2017-05-13] VITALS (23 sets, daily range): BP systolic 120–179; BP diastolic 69–131; PULSE 63–100; RESP 18–28
[2017-05-13 05:56] LABS: BASOPHILS % 0.1 % (0.0-2.0); EOSINOPHILS # 0.2 10^3/ul (0.0-0.5); EOSINOPHILS % 1.2 % (0.0-7.0); HEMATOCRIT 24.8 % (42.0-52.0); HEMOGLOBIN 8.4 g/dl (14.0-18.0); LYMPHOCYTES % 6.5 % (15.0-51.0); MEAN CORPUSCULAR HEMOGLOBIN 31.5 pg (29.0-33.0); MEAN CORPUSCULAR HGB CONC 33.9 g/dl (32.0-37.0); MEAN CORPUSCULAR VOLUME 92.9 fl (82.0-101.0); MEAN PLATELET VOLUME 10.6 fl (7.4-10.4); MONOCYTE # 0.9 10^3/ul (0.3-0.9); MONOCYTES % 5.7 % (0.0-11.0); NEUTROPHIL # 13.3 10^3/ul (1.6-7.5); NEUTROPHILS % 84.2 % (39.0-77.0); PLATELET COUNT 250 10^3/UL (140-415); RED BLOOD COUNT 2.67 10^6/ul (4.70-6.10); RED CELL DISTRIBUTION WIDTH 13.7 % (11.5-14.5); WHITE BLOOD COUNT 15.8 10^3/ul (4.8-10.8)
[2017-05-13] MEDS: METOPROLOL 25 MG TAB PO SCH ×4 (06:11→23:45)
[2017-05-13] MEDS: PANTOPRAZOLE (EC) 40 MG TAB PO SCH (06:11)
[2017-05-13 06:44] LABS: CALCIUM 8.2 mg/dl (8.4-10.2); CREATININE 1.59 mg/dl (0.61-1.24); MAGNESIUM 1.7 mg/dl (1.7-2.5); PHOSPHORUS 3.3 mg/dl (2.5-4.9); POTASSIUM 3.7 mmol/L (3.5-5.1)
[2017-05-13] MEDS: INSULIN ASPART [NOVOLOG] 3 ML PEN SC SCH ×6 (07:54→21:03)
[2017-05-13] MEDS: INSULIN GLARGINE [LANtus] 3 ML PEN SC SCH (07:58)
[2017-05-13] MEDS: OLANZAPINE 2.5 MG TAB PO SCH ×2 (08:02→20:54)
[2017-05-13] MEDS: MEROPENEM 1 GM/50ML(PMX) 50 ML IVPB SCH ×2 (08:02→22:05)
[2017-05-13] MEDS: NYSTATIN 30 GM POWDER BTL TOP SCH ×2 (09:00→21:04)
[2017-05-13] MEDS: BALSAM PERU/CASTOR OIL 60 GM TUBE TOP SCH ×2 (09:00→21:04)
--- NOTE | 2017-05-13 09:04 | RADRPT ---
PROCEDURE: XR Chest. CLINICAL INDICATION: Pneumonia, CHF TECHNIQUE: AP Portable chest. COMPARISON: DR ZAMORA CHEST 05/08/2017; DR ZAMORA CHEST 05/08/2017 FINDINGS: The tip of the left PICC line is not well visualized due to overlying wires The cardiomediastinal silhouette is enlarged, partially obscured. The aortic arch is calcified. The lung volumes are low with compressive changes. Interval decreased edema and left basilar atelectasis . Right middle lobe, basilar opacity and atelectasis are not significant changed. The right hemidiap hragm is elevated. No pneumothorax is seen. The osseous structures are intact. IMPRESSION: The tip of the left PICC line is not well visualized. Low lung volumes. Decreased lung congestion and left basilar atelectasis. No significant change in t he right middle lobe, basilar consolidation atelectasis and elevated right hemidiaphragm. Cardiomegaly Physician Cynthia Date Time Electronically viewed and signed by Physician Cynthia on 05/13/2017 09:03 /
--- NOTE | 2017-05-13 10:29 | PN ---
DATE: 05/13/2017 SUBJECTIVE: The patient is stable. No events overnight. No fevers, chills, nausea, vomiting. OBJECTIVE: VITAL SIGNS: Blood pressure is 130/88, respirations 23, pulse 99, temperature 98.6. HEENT: Head is normocephalic. NECK: Supple. HEART: Regular rate. LUNGS: Show diminished breath sounds at base. ABDOMEN: Soft, nontender to palpation without rebound or guarding. EXTREMITIES: Negative for clubbing, cyanosis. No edema. MUSCULOSKELETAL: No joint effusions. NEUROLOGICAL: No change in exam. MEDICATIONS: Have been reviewed. LABORATORY DATA: Show sodium 141, potassium 3.7, chloride 110, BUN 29, creatinine 1.59. White coun t 15.8, hemoglobin 8.4, hematocrit 24.8, platelet count is 250. ASSESSMENT AND PLAN: 1. Nonoliguric acute kidney injury secondary to acute tubular necrosis. Renal function is slowly i mproving. Continue current treatment plan, supportive care, renally dose all meds. 2. Hypomagnesemia. Continue to monitor and replete. 3. Severe sepsis status post shock, clinically improving. Continue current antibiotic regimen. 4. Pancreatitis, improving. Continue to monitor. The patient is off fluids, advance diet. 5. Diabetes. Continue current insulin regimen. 6. History of below knee amputation. 7. Acute encephalopathy, etiology is toxic metabolic. Dictated By: GEN VALENZUELA/DAVIE Conf#: [id number] DID#: [id number]
--- NOTE | 2017-05-13 10:44 | CONS ---
Date/Time of Note Date/Time of Note DATE: 05/13/17 TIME: 10:42 Consult Date/Type/Reason Admit Date/Time May 02, 2017 at 14:03 Initial Consult Date 05/03/17 Type of Consultation: cardiology Ordering Provider: BRYAN MINOR DO Subjective CARDIOLOGY FOLLOW UP NOTE: S: d/w staff and rhythm was reviewed. pt remains in NSR and BP has been well controlled now he denies abdominal pain to me. he denies any cp or sob to me. he is still in ICU he wants to eat O: General: in no distress HEENT: NC/AT. pupils are equal. round. NECK: NO JVD. no stridor. CV: tachycardic. . systolic murmur; no gallop or rubs. PULM: no wheezing or rhonchi. GI: mild tenderness. no rebound. no guarding Extremity: s/p R LE amputation. neuro: awake and alert. with right sided weakness Psych: calm and pleasant rectal: deferred : normal male ECHO Personally reviewed: 1. Hyperdynamic left ventricular systolic function. Normal left ventricular cavity size. Mild concentric left ventricular hypertrophy. Ejection fraction is visually estimated at 70 %. Abnormal Diastolic Function. 2. The left atrium is normal in size. 3. Mild mitral leaflet calcification. Mild mitral annular calcification. Trace mitral regurgitation. 4. No significant aortic stenosis or insufficiency. Aortic cusps appear mildly calcified. Non coronary cusp appears moderately calcified. 5. Normal appearance of the tricuspid valve. Estimated peak PA systolic pressure 56 mmHg. There is mild tricuspid regurgitation. 6. The IVC is not well visualized. Ordering Provider: BRYAN MINOR DO Objective Vital Signs Date Time Temp Pulse Resp B/P Pulse Ox O2 Delivery O2 Flow Rate FiO2 05/13/17 10:00 69 20 126/69 95 Room Air 05/13/17 08:00 98.8 05/13/17 03:44 3.0 Intake and Output 05/12/17 05/12/17 05/13/17 15:00 23:00 07:00 Intake Total 980 ml 560 ml 340 ml Output Total 980 ml 785 ml 900 ml Balance 0 ml -225 ml -560 ml Results/Medications Result Diagram: 05/13/17 0540 05/13/17 0540 Results 24 hrs Laboratory Tests Test 05/12/17 13:10 05/12/17 16:53 05/12/17 20:43 05/13/17 05:40 Bedside Glucose 178 201 284 H White Blood Count 15.8 #H Red Blood Count 2.67 L Hemoglobin 8.4 L Hematocrit 24.8 L Mean Corpuscular Volume 92.9 Mean Corpuscular Hemoglobin 31.5 Mean Corpuscular Hemoglobin Concent 33.9 Red Cell Distribution Width 13.7 Platelet Count 250 Mean Platelet Volume 10.6 H Neutrophils % 84.2 H Lymphocytes % 6.5 L Monocytes % 5.7 Eosinophils % 1.2 Basophils % 0.1 Nucleated Red Blood Cells % 0.0 Neutrophils # 13.3 H Lymphocytes # 1.0 Monocytes # 0.9 Eosinophils # 0.2 Basophils # 0.0 Nucleated Red Blood Cells # 0.0 Sodium Level 141 Potassium Level 3.7 Chloride Level 110 Carbon Dioxide Level 25 Anion Gap 10 Blood Urea Nitrogen 29 H Creatinine 1.59 H Glucose Level 178 Calcium Level 8.2 L Phosphorus Level 3.3 Magnesium Level 1.7 Lipase 31 Test 05/13/17 07:51 Bedside Glucose 289 H Medications Current Medications Ondansetron HCl (Zofran Inj) 4 mg Q6H PRN IV NAUSEA AND/OR VOMITING Last administered on 05/09/17 12:58; Admin Dose 4 MG; Start 05/02/17 at 19:00 Lorazepam (Ativan) 0.5 mg Q2H PRN IV ANXIETY Last administered on 05/11/17 03 :33; Admin Dose 0.5 MG; Start 05/02/17 at 19:00 Hydromorphone HCl (Dilaudid) 1 mg Q4H PRN IV PAIN LEVEL 7-10 Last administered on 05/12/17 00:40; Admin Dose 1 MG; Start 05/02/17 at 23:00 Miscellaneous Information 1 ea NOTE XX ; Start 05/03/17 at 14:00 Glucose (Glutose) 15 gm Q15M PRN PO DECREASED GLUCOSE; Start 05/03/17 at 14:00 Glucose (Glutose) 22.5 gm Q15M PRN PO DECREASED GLUCOSE; Start 05/03/17 at 14: 00 Dextrose (D50w Syringe) 25 ml Q15M PRN IV DECREASED GLUCOSE Last administered on 05/11/17 17:25; Admin Dose 25 ML; Start 05/03/17 at 14:00 Dextrose (D50w Syringe) 50 ml Q15M PRN IV DECREASED GLUCOSE; Start 05/03/17 at 14:00 Glucagon (Glucagen) 1 mg Q15M PRN IM DECREASED GLUCOSE; Start 05/03/17 at 14:00 Glucose (Glutose) 15 gm Q15M PRN BUCCAL DECREASED GLUCOSE; Start 05/03/17 at 14 :00 Bisacodyl (Dulcolax Supp) 10 mg DAILY PRN [place] CONSTIPATION Last administered on 05/04/17 17:20; Admin Dose 10 MG; Start 05/03/17 at 17:00 Miscellaneous Information [facility] This patient bustillo... PRN PRN XX WOUND CARE; Start 05/03/17 at 19:00 Olanzapine (Zyprexa) 2.5 mg BID PO Last administered on 05/13/17 08:02; Admin Dose 2.5 MG; Start 05/06/17 at 21:00 Pantoprazole (Protonix Tab) 40 mg DAILY@06 PO Last administered on 05/13/17 06:11; Admin Dose 40 MG; Start 05/07/17 at 06:00 Metoprolol Tartrate (Lopressor) 50 mg Q6 PO Last administered on 05/13/17 06: 11; Admin Dose 50 MG; Start 05/07/17 at 12:00 Insulin Glargine 20 unit 20 unit DAILY@08 SC Last administered on 05/13/17 07 :58; Admin Dose 20 UNIT; Start 05/09/17 at 08:00 Fluconazole/ Sodium Chloride 50 ml @ 50 mls/hr Q24H IVPB Last administered on 05/12/17 13:25; Admin Dose 50 MLS/HR; Start 05/08/17 at 13:30 Meropenem/Sodium Chloride (Merrem 1 Gm/50 ml (Pmx)) 50 ml @ 100 mls/hr Q12 IVPB Last administered on 05/13/17 08:02; Admin Dose 100 MLS/HR; Start 05/09 at 11:30 Nystatin 1 applic 1 applic BID TOP Last administered on 05/12/17 20:45; Admin Dose 1 APPLIC; Start 05/10/17 at 10:00 Vancomycin HCl (Vancocin) 250 ml @ 125 mls/hr Q24H IVPB Last administered on 10/16/17at 12:13; Admin Dose 125 MLS/HR; Start 05/11/17 at 11:30 Assessment/Plan Chief Complaint/Hosp Course 1. Sinus tachycardia secondary to below: it has resolved now. 2. Severe sepsis and septic shock: BP has improved now 3. Severe pancreatitis: improving . 4. Diabetes. 7. Severe metabolic acidosis. 8. HX of Hypertension. 9. History of dyslipidemia. 10. History of RLE amputation. 11. History of craniotomy and meningioma, status post craniotomy. 12. History of seizure disorder. 13. JESUSITA on CKD. :improving now 14. hypo Na: improved now. 15. mildly abnormal trop due to above 16. HTN RECOMMENDATIONS: Antibiotic is managed as per infectious disease and Dr. Vincent. echo reviewed and did not show any evidence of LV dysfunction or effusion to explain the pt's tachycardia Electrolytes will be checked periodically and adjusted. cont Insulin. cont metoprlol at current dose f.u with renal consultants rec. diuresis prn to be adjusted by renal f/u surgery rec THANK YOU CARMEN MELO MD [facility]. Problems: CARMEN MELO MD May 13, 2017 10:44
--- NOTE | 2017-05-13 11:21 | CONS ---
Date/Time of Note Date/Time of Note DATE: 05/13/17 TIME: 11:19 Assessment/Plan Assessment/Plan Additional Assessment/Plan Assessment recommendations; 1. Patient admitted with sepsis with acute pancreatitis with significant clinical improvement. 2. Improving leukocytosis. 3. Chronic renal insufficiency. 4. Possibly some element of chronic encephalopathy. 5. Right middle lobe atelectasis is seen on today's chest x-ray. Continue current treatment. Patient can be transferred to the medical floor. Consultation Date/Type/Reason Admit Date/Time May 02, 2017 at 14:03 Initial Consult Date 05/03/17 Type of Consultation: Pulmonary/critical care Referring Provider: BRYAN MINOR DO 24 HR Interval Summary Free Text/Dictation Patient's condition is stable. Remains completely awake alert. Has remained hemodynamically stable. General exam; elderly male, awake and alert. Currently no distress. Exam/Review of Systems Vital Signs Vitals Vital Signs Date Time Temp Pulse Resp B/P Pulse Ox O2 Delivery O2 Flow Rate FiO2 05/13/17 11:00 88 24 143/79 93 Room Air 05/13/17 08:00 98.8 05/13/17 03:44 3.0 Intake and Output 05/12/17 05/12/17 05/13/17 15:00 23:00 07:00 Intake Total 980 ml 560 ml 340 ml Output Total 980 ml 785 ml 900 ml Balance 0 ml -225 ml -560 ml Exam HEENT exam; supple neck, no JVD. No lymphadenopathy. Midline trachea. No thyromegaly. Patient is edentulous. No neck masses. Chest exam; clear to auscultation. S1-S2 audible, no murmurs. Regular rhythm. Abdomen exam; soft, nontender. No organomegaly. Bowel sounds audible. Extremity exam; no peripheral edema. CREDIT UNION EXAMINER exam; no focal deficit. Results Result Diagram: 05/13/17 0540 05/13/17 0540 Results 24 hrs Laboratory Tests Test 05/12/17 13:10 05/12/17 16:53 05/12/17 20:43 05/13/17 05:40 Bedside Glucose 178 201 284 H White Blood Count 15.8 #H Red Blood Count 2.67 L Hemoglobin 8.4 L Hematocrit 24.8 L Mean Corpuscular Volume 92.9 Mean Corpuscular Hemoglobin 31.5 Mean Corpuscular Hemoglobin Concent 33.9 Red Cell Distribution Width 13.7 Platelet Count 250 Mean Platelet Volume 10.6 H Neutrophils % 84.2 H Lymphocytes % 6.5 L Monocytes % 5.7 Eosinophils % 1.2 Basophils % 0.1 Nucleated Red Blood Cells % 0.0 Neutrophils # 13.3 H Lymphocytes # 1.0 Monocytes # 0.9 Eosinophils # 0.2 Basophils # 0.0 Nucleated Red Blood Cells # 0.0 Sodium Level 141 Potassium Level 3.7 Chloride Level 110 Carbon Dioxide Level 25 Anion Gap 10 Blood Urea Nitrogen 29 H Creatinine 1.59 H Glucose Level 178 Calcium Level 8.2 L Phosphorus Level 3.3 Magnesium Level 1.7 Lipase 31 Test 05/13/17 07:51 Bedside Glucose 289 H Medications Medications Current Medications Ondansetron HCl (Zofran Inj) 4 mg Q6H PRN IV NAUSEA AND/OR VOMITING Last administered on 05/09/17 12:58; Admin Dose 4 MG; Start 05/02/17 at 19:00 Lorazepam (Ativan) 0.5 mg Q2H PRN IV ANXIETY Last administered on 05/11/17 03 :33; Admin Dose 0.5 MG; Start 05/02/17 at 19:00 Hydromorphone HCl (Dilaudid) 1 mg Q4H PRN IV PAIN LEVEL 7-10 Last administered on 05/12/17 00:40; Admin Dose 1 MG; Start 05/02/17 at 23:00 Miscellaneous Information 1 ea NOTE XX ; Start 05/03/17 at 14:00 Glucose (Glutose) 15 gm Q15M PRN PO DECREASED GLUCOSE; Start 05/03/17 at 14:00 Glucose (Glutose) 22.5 gm Q15M PRN PO DECREASED GLUCOSE; Start 05/03/17 at 14: 00 Dextrose (D50w Syringe) 25 ml Q15M PRN IV DECREASED GLUCOSE Last administered on 05/11/17 17:25; Admin Dose 25 ML; Start 05/03/17 at 14:00 Dextrose (D50w Syringe) 50 ml Q15M PRN IV DECREASED GLUCOSE; Start 05/03/17 at 14:00 Glucagon (Glucagen) 1 mg Q15M PRN IM DECREASED GLUCOSE; Start 05/03/17 at 14:00 Glucose (Glutose) 15 gm Q15M PRN BUCCAL DECREASED GLUCOSE; Start 05/03/17 at 14 :00 Bisacodyl (Dulcolax Supp) 10 mg DAILY PRN [place] CONSTIPATION Last administered on 05/04/17 17:20; Admin Dose 10 MG; Start 05/03/17 at 17:00 Miscellaneous Information (Pending [facility] Order For Wound Care) This patient bustillo... PRN PRN XX WOUND CARE; Start 05/03/17 at 19:00 Olanzapine (Zyprexa) 2.5 mg BID PO Last administered on 05/13/17 08:02; Admin Dose 2.5 MG; Start 05/06/17 at 21:00 Pantoprazole (Protonix Tab) 40 mg DAILY@06 PO Last administered on 05/13/17 06:11; Admin Dose 40 MG; Start 05/07/17 at 06:00 Metoprolol Tartrate (Lopressor) 50 mg Q6 PO Last administered on 05/13/17 06: 11; Admin Dose 50 MG; Start 05/07/17 at 12:00 Insulin Glargine 20 unit 20 unit DAILY@08 SC Last administered on 05/13/17 07 :58; Admin Dose 20 UNIT; Start 05/09/17 at 08:00 Fluconazole/ Sodium Chloride 50 ml @ 50 mls/hr Q24H IVPB Last administered on 05/12/17 13:25; Admin Dose 50 MLS/HR; Start 05/08/17 at 13:30 Meropenem/Sodium Chloride (Merrem 1 Gm/50 ml (Pmx)) 50 ml @ 100 mls/hr Q12 IVPB Last administered on 05/13/17 08:02; Admin Dose 100 MLS/HR; Start 05/09 at 11:30 Nystatin 1 applic 1 applic BID TOP Last administered on 05/12/17 20:45; Admin Dose 1 APPLIC; Start 05/10/17 at 10:00 Vancomycin HCl (Vancocin) 250 ml @ 125 mls/hr Q24H IVPB Last administered on 05/12/17 12:13; Admin Dose 125 MLS/HR; Start 05/11/17 at 11:30 SUSANNAH GUERRIER May 13, 2017 11:21
[2017-05-13] MEDS: VANCOMYCIN 1 GM in NS 250 ML IVPB SCH (12:33)
[2017-05-13] MEDS: FLUCONAZOLE 100 MG/NS (PMX) 50 ML IVPB SCH (13:31)
--- NOTE | 2017-05-13 14:27 | PN ---
DATE: 05/13/2017 SUBJECTIVE: No acute events. The patient is alert, feels good, eating jello. No fevers, no vomiti ng or diarrhea. VITAL SIGNS: Temperature 98.8, pulse 70, respirations 26, blood pressure 141/79, saturation 100 on room air. LABORATORY DATA: WBC 16.8, H and H 8.4 and 24.8, platelets 250, neutrophils 84.2, BUN 29, creatinin e 1.59. DIAGNOSTICS: Chest x-ray this morning revealed decreased lung congestion and left basilar atelectas is. INDWELLINGS: The patient has High, PICC line. ANTIMICROBIALS: 1. Vancomycin. 2. Meropenem. 3. Fluconazole. PHYSICAL EXAMINATION: GENERAL: This is an obese, well-developed elderly man who is in no distress. HEENT: Head atraumatic, normocephalic. Sclerae anicteric. Buccal mucosa dry. NECK: Supple. CHEST: Rise symmetrical. Breath sounds diminished to bases. HEART: S1, S2. ABDOMEN: Soft, bowel tones present. EXTREMITIES: Without cyanosis. ASSESSMENT: 1. Resolving sepsis status post shock. 2. Acute necrotizing pancreatitis. 3. Diabetes. 4. Peripheral vascular disease, history of right below knee amputation. 5. History of meningioma status post craniotomy with left occipital wound culture previously grew M RSA, current been negative. 6. Acute on chronic kidney disease. 7. Status post acute encephalopathy. PLAN: Patient remains stable. WBC tracing down. He is clinically improving. Continue present car e, antibiotics, and follow recommendations of specialists. Dictated By: JOHNNIE BARCLAY HAIRSPRING II INSPECTOR for GENARO MARIE/DAVIE Conf#: [id number] DID#: [id number]
--- NOTE | 2017-05-13 15:14 | PN ---
DATE: 05/13/2017 Patient seen. WBC went down nicely to 15,000. In addition, the patient's glucose levels are higher today as patient's diet was advanced to clear liquid diet. The patient seen feeling overall better . PHYSICAL EXAMINATION: VITAL SIGNS: Afebrile. Temperature 98.5, pulse 76, respirations 27, blood pressure 142/100, satura tion 95%. GENERAL: The patient is in no acute distress. The patient is pale. Left parietal temporal wound. CARDIOVASCULAR: S1, S2. LUNGS: Decreased bilaterally. ABDOMEN: Soft, slight discomfort upon deep palpation. EXTREMITIES: Right upper extremity +2 edema, right AKA and trace edema of the lower extremities. LABORATORY DATA: White count is 15.8, hemoglobin 8.4, hematocrit 25, platelet count of 250, neutrop hils 84%, lymphocytes 7%. Chemistry: Sodium is 141, potassium 3.7, chloride 110, bicarbonate 25, B UN is 29, creatinine 1.59, glucose 178, blood glucose level is high at 332, patient's urinalysis on 05/07/2017 did show that nitrites and leukocyte esterase are negative. The patient's wound culture negative, this is from the head wound. MEDICATIONS: The patient's current medications reviewed include. 1. Insulin aspart per sliding scale. 2. Vancomycin IV dose per pharmacy. 3. as directed. 4. Merrem IV dose per pharmacy. 5. Lantus 20 units daily. 6. Diflucan daily. 7. Xopenex every 4 hours p.r.n. 8. Metoprolol 50 every 6 hours. 9. Protonix 40 mg daily. 10. Zyprexa 2.5 b.i.d. 11. Dulcolax p.r.n. 12. Hypoglycemia protocol as directed. ASSESSMENT AND PLAN: This is a 67-year-old male with history of meningioma status post cr aniotomy a year ago, diabetes mellitus, left forehead wound, chronic kidney disease, right above the knee amputation who presented with acute pancreatitis tachycardia, sepsis, acute renal function, ac daria renal failure and metabolic acidosis. 1. Respiratory. Remains stable. Continue O2 support as needed. 2. Cardiovascular. Vitals are stable. 3. Acute renal failure, improved with gentle hydration. 4. Diabetes mellitus. Start the patient on NovoLog 4 units before meals and increase Lantus to 24 units every day. 5. Acute pancreatitis with necrosis. Diet advanced to clear liquid diet. The patient is stable. 6. Encephalopathy better than admission, observe as patient has baseline aphagia and slurred speech . 7. Psychiatric disorder. Resume Zyprexa. 8. Diabetes mellitus. Increase NovoLog and Lantus. 9. Right upper extremity edema, keep it elevated for now. Likely due to patient's IV. Further t to be advanced per surgical team. We will follow. Dictated By: DOMINGO GILMORE/DAVIE Conf#: [id number] DID#: [id number]
--- NOTE | 2017-05-13 18:34 | CONS ---
Date/Time of Note Date/Time of Note DATE: 05/13/17 TIME: 18:33 Assessment/Plan Assessment/Plan Additional Assessment/Plan IMPRESSION: 1. 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 2. Diabetes mellitus. 3. Leukocytosis, which is most probably related to the necrosis in the pancreas. 4. Cerebrovascular accident. 5. Renal failure. Plan Continue all supportive care Patient should never get Januvia in the future. Patient CT scan to be repeated after 4-5 weeks to look for organization of necrotizing tissue or development of pseudocyst Consultation Date/Type/Reason Admit Date/Time May 02, 2017 at 14:03 Initial Consult Date 05/03/17 Type of Consultation: Pulmonary/critical care Referring Provider: BRYAN MINOR DO 24 HR Interval Summary Constitutional: improved Exam/Review of Systems Vital Signs Vitals Vital Signs Date Time Temp Pulse Resp B/P Pulse Ox O2 Delivery O2 Flow Rate FiO2 05/13/17 18:01 3.0 05/13/17 16:00 65 05/13/17 16:00 98.2 20 142/69 95 Room Air Intake and Output 05/12/17 05/12/17 05/13/17 15:00 23:00 07:00 Intake Total 980 ml 560 ml 340 ml Output Total 980 ml 785 ml 900 ml Balance 0 ml -225 ml -560 ml Exam Constitutional: alert, oriented, well developed Psych: nl mood/affect, no complaints Head: atraumatic, normocephalic Eyes: EOMI, PERRL, nl conjunctiva, nl lids, nl sclera ENMT: nl external ears & nose, nl lips & teeth, nl nasal mucosa & septum Neck: non-tender, supple Respiratory: clear to auscultation, normal air movement Cardiovascular: nl pulses, regular rate and rhythm Gastrointestinal: nl liver, spleen, non-tender, soft Musculoskeletal: nl extremities to inspection, nl gait and stance Extremities: normal pulses Neurological: SENIOR ACCOUNTING ASSOCIATE II-XII intact, nl mental status, nl speech, nl strength Skin: nl turgor, No rash or lesions Lymph: nl lymph nodes Results Result Diagram: 05/13/17 0540 05/13/17 0540 Results 24 hrs Laboratory Tests Test 05/12/17 20:43 05/13/17 05:40 05/13/17 07:51 05/13/17 10:51 Bedside Glucose 284 H 289 H White Blood Count 15.8 #H Red Blood Count 2.67 L Hemoglobin 8.4 L Hematocrit 24.8 L Mean Corpuscular Volume 92.9 Mean Corpuscular Hemoglobin 31.5 Mean Corpuscular Hemoglobin Concent 33.9 Red Cell Distribution Width 13.7 Platelet Count 250 Mean Platelet Volume 10.6 H Neutrophils % 84.2 H Lymphocytes % 6.5 L Monocytes % 5.7 Eosinophils % 1.2 Basophils % 0.1 Nucleated Red Blood Cells % 0.0 Neutrophils # 13.3 H Lymphocytes # 1.0 Monocytes # 0.9 Eosinophils # 0.2 Basophils # 0.0 Nucleated Red Blood Cells # 0.0 Sodium Level 141 Potassium Level 3.7 Chloride Level 110 Carbon Dioxide Level 25 Anion Gap 10 Blood Urea Nitrogen 29 H Creatinine 1.59 H Glucose Level 178 Calcium Level 8.2 L Phosphorus Level 3.3 Magnesium Level 1.7 Lipase 31 Vancomycin Level Trough 14.0 Test 05/13/17 11:35 05/13/17 16:15 05/13/17 18:12 Bedside Glucose 332 H 255 H 182 Medications Medications Current Medications Ondansetron HCl (Zofran Inj) 4 mg Q6H PRN IV NAUSEA AND/OR VOMITING Last administered on 05/09/17 12:58; Admin Dose 4 MG; Start 05/02/17 at 19:00 Lorazepam (Ativan) 0.5 mg Q2H PRN IV ANXIETY Last administered on 05/11/17 03 :33; Admin Dose 0.5 MG; Start 05/02/17 at 19:00 Hydromorphone HCl (Dilaudid) 1 mg Q4H PRN IV PAIN LEVEL 7-10 Last administered on 05/12/17 00:40; Admin Dose 1 MG; Start 05/02/17 at 23:00 Miscellaneous Information 1 ea NOTE XX ; Start 05/03/17 at 14:00 Glucose (Glutose) 15 gm Q15M PRN PO DECREASED GLUCOSE; Start 05/03/17 at 14:00 Glucose (Glutose) 22.5 gm Q15M PRN PO DECREASED GLUCOSE; Start 05/03/17 at 14: 00 Dextrose (D50w Syringe) 25 ml Q15M PRN IV DECREASED GLUCOSE Last administered on 05/11/17 17:25; Admin Dose 25 ML; Start 05/03/17 at 14:00 Dextrose (D50w Syringe) 50 ml Q15M PRN IV DECREASED GLUCOSE; Start 05/03/17 at 14:00 Glucagon (Glucagen) 1 mg Q15M PRN IM DECREASED GLUCOSE; Start 05/03/17 at 14:00 Glucose (Glutose) 15 gm Q15M PRN BUCCAL DECREASED GLUCOSE; Start 05/03/17 at 14 :00 Bisacodyl (Dulcolax Supp) 10 mg DAILY PRN [place] CONSTIPATION Last administered on 05/04/17 17:20; Admin Dose 10 MG; Start 05/03/17 at 17:00 Miscellaneous Information (Pending Santyl Order For Wound Care) This patient bustillo... PRN PRN XX WOUND CARE; Start 05/03/17 at 19:00 Olanzapine (Zyprexa) 2.5 mg BID PO Last administered on 05/13/17 08:02; Admin Dose 2.5 MG; Start 05/06/17 at 21:00 Pantoprazole (Protonix Tab) 40 mg DAILY@06 PO Last administered on 05/13/17 06:11; Admin Dose 40 MG; Start 05/07/17 at 06:00 Metoprolol Tartrate 50 mg 50 mg Q6 PO Last administered on 05/13/17 16:44; Admin Dose 50 MG; Start 05/07/17 at 12:00 Fluconazole/ Sodium Chloride 50 ml @ 50 mls/hr Q24H IVPB Last administered on 05/13/17 13:31; Admin Dose 50 MLS/HR; Start 05/08/17 at 13:30 Meropenem/Sodium Chloride (Merrem 1 Gm/50 ml (Pmx)) 50 ml @ 100 mls/hr Q12 IVPB Last administered on 05/13/17 08:02; Admin Dose 100 MLS/HR; Start 05/09 at 11:30 Nystatin 1 applic 1 applic BID TOP Last administered on 05/13/17 09:00; Admin Dose 1 APPLIC; Start 05/10/17 at 10:00 Vancomycin HCl (Vancocin) 250 ml @ 125 mls/hr Q24H IVPB Last administered on 05/13/17 12:33; Admin Dose 125 MLS/HR; Start 05/11/17 at 11:30 Insulin Glargine (Lantus) 24 unit DAILY@08 [place] ; Start 05/14/17 at 08:00 JOHNY MCCURDY MD May 13, 2017 18:34
--- NOTE | 2017-05-13 20:24 | PN ---
Date/Time of Note Date/Time of Note DATE: 05/13/17 TIME: 20:14 Assessment/Plan Lines/Catheters IV Catheter Type (from [facility]): PICC Line High in Place (from [facility]): Yes Assessment/Plan Assessment/Plan [facility] Progress Note Date of Service: 05/13/2017 Location of Service: ICU Today's Assessment & Plan: Overall stable with continued improvement. Abdomen remains benign. No indications of major postoperative complications or wound problems. No indication for acute surgical intervention. Awaiting further return of bowel function. WBC elevation is also improving. Previous assessment that applies today: A very-pleasant but unfortunate 67-year-old gentleman with multiple comorbidities including DM2 and prior CVA among others (please see below), presenting with acute pancreatitis complicated by necrosis but without obvious evidence of infected necrosis. Etiology of pancreatitis is likely gallstone related. Condition is tenuous and prognosis is guarded given his multiple comorbidities, including malnutrition, DM2, CVA, renal insufficiency, institutionalized status, amputation, etc. With above assessment, I've recommended the followin. Keep in-house 2. Full liquid diet 3. Consider lowering intravenous fluids rate 4. Consider discontinuing antimicrobials (elevated WBC likely due to inflammatory response of the pancreatitis) 5. Strict I's and O's 6. Labs in a.m. 7. Long-term plan would be inpatient or outpatient lap joel to help prevent future episodes 8. Please avoid contrast in axial images since likely will not pack changer 9. Please include me in all major decisions, specially decisions to scan the patient or to intervene with IR (very important to maintain multidisciplinary care for maximum value) Thank you very much for having me involved in the care of this very pleasant patient and I'm certain wonderful family. If you have any questions, please feel free to contact me at [phone]. Nature of presenting problem: High severity Please note that, given the extensive number of diagnoses or management options , the extensive amount and/or complexity of data needed to be reviewed, and high risk of complications and/or morbidity or mortality, this qualifies as high complexity type of decision-making. Disclaimers: 1. Inadvertent spelling and grammatical errors are likely due to electronic health record (EHR)/dictation software used and do not reflect on the quality of delivered patient care. 2. The electronic timestamp recorded on this note does not necessarily reflect the actual date and time of the visit or the service. 3. Portions of this note may have been created through electronic templates and computer algorithms that might bring in information either from the system or from other physicians and providers. Please note that such information may or may not contain errors, the occurrence of which are outside of my control. In general (but not always) this happens either in the beginning or at the end of the note. The portion of the note that I have created are generally done in 1 continuous block of text, flanked at the beginning and at the end by " ", and entered into one field in the EHR. 4. There may be other unanticipated errors in the note that are outside of my control. I can only attest to the portions of the note that I have created. Updated clinical summary: A very-pleasant but unfortunate 67-year-old gentleman with multiple comorbidities including DM2 and prior CVA among others (please see below), presenting with acute pancreatitis complicated by necrosis but without obvious evidence of infected necrosis. Etiology of pancreatitis is likely gallstone related. Comorbidities: 1. BMI 29 2. Diabetes mellitus, complicated by vascular disease (s/p R BKA) 3. CVA with right-sided weakness 4. Dyslipidemia 5. Seizure disorder 6. Bipolar disorder 7. History of CKD 8. Hypertension 9. Malnutrition (Albumin 2.3 VPH 05/10/17) 10. Expressive aphasia 11. Depression 12. Left scalp wound 13. Meningioma resection 2016 (Dr. Christian) 14. Rehab patient ([facility]) Subjective: No major events or complaints; reported no abd pain and under control with medications; reports being hungry; no n/v/d; no sob or cp; + bowel activity; + flatus; + BM and normal;- activity Objective: Vitals: See below Exam: GENERAL: On exam, the patient was laying in bed and appeared to be comfortable and in no acute distress. ABDOMEN: Soft, nontender and nondistended. There are no peritoneal signs or guarding. SKIN: Skin appears to be pink and feels warm to touch. NEUROLOGIC: Patient is awake, alert and followed commands appropriately. Exam/Review of Systems Vital Signs Vitals Vital Signs Date Time Temp Pulse Resp B/P Pulse Ox O2 Delivery O2 Flow Rate FiO2 05/13/17 18:01 3.0 05/13/17 16:00 65 05/13/17 16:00 98.2 20 142/69 95 Room Air Intake and Output 05/12/17 05/12/17 05/13/17 15:00 23:00 07:00 Intake Total 980 ml 560 ml 340 ml Output Total 980 ml 785 ml 900 ml Balance 0 ml -225 ml -560 ml Results Result Diagram: 05/13/17 0540 05/13/17 0540 CARA ROY M.D. May 13, 2017 20:24
--- NOTE | 2017-05-13 23:02 | PN ---
Date/Time of Note Date/Time of Note DATE: 05/13/17 TIME: 23:02 Assessment/Plan Lines/Catheters IV Catheter Type (from Nrs): PICC Line High in Place (from Nrs): Yes Assessment/Plan Chief Complaint/Hosp Course 1. Abdominal pain 2nd pancreatitis with ileus. Improving leukocytosis with pancreatic necrosis. No large body of fluid collections. HBS input appreciated ; much improved abdominal pain -pain management -continue to monitor -no abx per HBS 2. Sepsis with lactic acidosis; +Urine cx, ? other. Improving -supportive -as above 3. BMI 29 -eventual diet/exercise optimization 4. ARF: increasing uop today, cr much improved -judicious fluids -avoid nephrotoxic meds -poss HD per renal 5. Uncontrolled Diabetes: blood sugar labile -optimize sugar control -eventual diet optimization 6. Constipation/Ileus: Improved with bowel function; -optimize bowel regimen eventually 7. Electrolyte imbalance -optimize lytes Thank you. Patient seen and examined in collaboration with Dr. Jerome Marie. Problems: Subjective 24 Hr Interval Summary No acute events. No abdominal pain/discomfort. Leukocytosis improving. No fevers , chills, sob, congested cough, cp, palpitations, bustillo, dizziness, n/v/d/dysuria. Exam/Review of Systems Vital Signs Vitals Vital Signs Date Time Temp Pulse Resp B/P Pulse Ox O2 Delivery O2 Flow Rate FiO2 05/22/17 16:23 77 05/22/17 11:07 98.1 17 136/99 96 05/22/17 08:32 Nasal Cannula 2.0 Exam Free Text/Dictation Constitutional: alert, no distress, oriented Psych: min anxiety Head: atraumatic, normocephalic, other (left head wound (shunt) with no drainage) Eyes: nl lids, nl sclera ENMT: mucosa pink and moist, nl nasal mucosa & septum Neck: non-tender, no jvd, supple Respiratory: normal resp effort, no wheezing Cardiovascular: s1s2 Gastrointestinal: softer, improved distention, non tender, umbilical hernia, no skin discoloration. No rebound or guarding Musculoskeletal: Right aka, stump clean. Moves extremities. No edema Neurological: nl mental status, delayed speech Lymphatics: No cervical or inguinal LNs Results Result Diagram: 05/22/17 0608 05/22/17 0608 JEB LIRIANO NP May 13, 2017 23:02
[2017-05-13] MEDS ORDERED: METOPROLOL 50 MG TAB ONE (23:38)
[2017-05-14] VITALS (15 sets, daily range): BP systolic 136–188; BP diastolic 72–98; PULSE 64–100; RESP 16–22
[2017-05-14] MEDS ORDERED: hydrALAzine 20 MG INJ ONE (00:41)
[2017-05-14] MEDS: hydrALAzine 20 MG INJ IV PRN (00:53)
[2017-05-14] MEDS: LORAZEPAM 2 MG INJ IV PRN (01:12)
[2017-05-14] MEDS: PANTOPRAZOLE (EC) 40 MG TAB PO SCH (05:36)
[2017-05-14] MEDS: METOPROLOL 25 MG TAB PO SCH ×3 (05:37→17:58)
[2017-05-14] MEDS: INSULIN ASPART [NOVOLOG] 3 ML PEN SC SCH ×7 (08:15→21:00)
[2017-05-14] MEDS: INSULIN GLARGINE [LANtus] 3 ML PEN SC SCH (08:17)
[2017-05-14 08:19] LABS: BASOPHILS % 0.1 % (0.0-2.0); EOSINOPHILS # 0.2 10^3/ul (0.0-0.5); EOSINOPHILS % 1.3 % (0.0-7.0); HEMATOCRIT 22.6 % (42.0-52.0); HEMOGLOBIN 7.6 g/dl (14.0-18.0); LYMPHOCYTES % 7.2 % (15.0-51.0); MEAN CORPUSCULAR HEMOGLOBIN 31.1 pg (29.0-33.0); MEAN CORPUSCULAR HGB CONC 33.6 g/dl (32.0-37.0); MEAN CORPUSCULAR VOLUME 92.6 fl (82.0-101.0); MEAN PLATELET VOLUME 10.9 fl (7.4-10.4); MONOCYTE # 0.9 10^3/ul (0.3-0.9); NEUTROPHIL # 12.1 10^3/ul (1.6-7.5); NEUTROPHILS % 83.9 % (39.0-77.0); PLATELET COUNT 235 10^3/UL (140-415); RED BLOOD COUNT 2.44 10^6/ul (4.70-6.10); RED CELL DISTRIBUTION WIDTH 13.6 % (11.5-14.5); WHITE BLOOD COUNT 14.4 10^3/ul (4.8-10.8)
--- NOTE | 2017-05-14 08:39 | CONS ---
Date/Time of Note Date/Time of Note DATE: 05/14/17 TIME: 08:37 Consult Date/Type/Reason Admit Date/Time May 02, 2017 at 14:03 Initial Consult Date 05/03/17 Type of Consultation: cardiology Ordering Provider: BRYAN MINOR DO Subjective CARDIOLOGY FOLLOW UP NOTE: S: d/w staff and rhythm was reviewed. pt remains in NSR and BP has been well controlled now. he is out of ICU now. he denies abdominal pain to me. he denies any cp or sob to me. he is able to eat now O: General: in no distress HEENT: NC/AT. pupils are equal. round. NECK: NO JVD. no stridor. CV: tachycardic. . systolic murmur; no gallop or rubs. PULM: no wheezing or rhonchi. GI: mild tenderness. no rebound. no guarding Extremity: s/p R LE amputation. neuro: awake and alert. with right sided weakness Psych: calm and pleasant rectal: deferred : normal male ECHO Personally reviewed: 1. Hyperdynamic left ventricular systolic function. Normal left ventricular cavity size. Mild concentric left ventricular hypertrophy. Ejection fraction is visually estimated at 70 %. Abnormal Diastolic Function. 2. The left atrium is normal in size. 3. Mild mitral leaflet calcification. Mild mitral annular calcification. Trace mitral regurgitation. 4. No significant aortic stenosis or insufficiency. Aortic cusps appear mildly calcified. Non coronary cusp appears moderately calcified. 5. Normal appearance of the tricuspid valve. Estimated peak PA systolic pressure 56 mmHg. There is mild tricuspid regurgitation. 6. The IVC is not well visualized. Objective Vital Signs Date Time Temp Pulse Resp B/P Pulse Ox O2 Delivery O2 Flow Rate FiO2 05/14/17 07:57 99.3 72 18 162/80 97 05/14/17 01:30 Nasal Cannula 05/13/17 20:00 2.0 Intake and Output 05/13/17 05/13/17 05/14/17 15:00 23:00 07:00 Intake Total 1050 ml 350 ml Output Total 775 ml 200 ml 500 ml Balance 275 ml -200 ml -150 ml Results/Medications Result Diagram: 05/14/17 0756 05/13/17 0540 Results 24 hrs Laboratory Tests Test 05/13/17 10:51 05/13/17 11:35 05/13/17 16:15 05/13/17 18:12 Vancomycin Level Trough 14.0 Bedside Glucose 332 H 255 H 182 Test 05/13/17 20:53 05/14/17 07:56 05/14/17 08:11 Bedside Glucose 190 174 White Blood Count 14.4 H Red Blood Count 2.44 L Hemoglobin 7.6 L Hematocrit 22.6 L Mean Corpuscular Volume 92.6 Mean Corpuscular Hemoglobin 31.1 Mean Corpuscular Hemoglobin Concent 33.6 Red Cell Distribution Width 13.6 Platelet Count 235 Mean Platelet Volume 10.9 H Neutrophils % 83.9 H Lymphocytes % 7.2 L Monocytes % 6.0 Eosinophils % 1.3 Basophils % 0.1 Nucleated Red Blood Cells % 0.0 Neutrophils # 12.1 H Lymphocytes # 1.0 Monocytes # 0.9 Eosinophils # 0.2 Basophils # 0.0 Nucleated Red Blood Cells # 0.0 Medications Current Medications Ondansetron HCl (Zofran Inj) 4 mg Q6H PRN IV NAUSEA AND/OR VOMITING Last administered on 05/09/17 12:58; Admin Dose 4 MG; Start 05/02/17 at 19:00 Lorazepam (Ativan) 0.5 mg Q2H PRN IV ANXIETY Last administered on 05/14/17 01 :12; Admin Dose 0.5 MG; Start 05/02/17 at 19:00 Hydromorphone HCl (Dilaudid) 1 mg Q4H PRN IV PAIN LEVEL 7-10 Last administered on 05/12/17 00:40; Admin Dose 1 MG; Start 05/02/17 at 23:00 Miscellaneous Information 1 ea NOTE XX ; Start 05/03/17 at 14:00 Glucose (Glutose) 15 gm Q15M PRN PO DECREASED GLUCOSE; Start 05/03/17 at 14:00 Glucose (Glutose) 22.5 gm Q15M PRN PO DECREASED GLUCOSE; Start 05/03/17 at 14: 00 Dextrose (D50w Syringe) 25 ml Q15M PRN IV DECREASED GLUCOSE Last administered on 05/11/17 17:25; Admin Dose 25 ML; Start 05/03/17 at 14:00 Dextrose (D50w Syringe) 50 ml Q15M PRN IV DECREASED GLUCOSE; Start 05/03/17 at 14:00 Glucagon (Glucagen) 1 mg Q15M PRN IM DECREASED GLUCOSE; Start 05/03/17 at 14:00 Glucose (Glutose) 15 gm Q15M PRN BUCCAL DECREASED GLUCOSE; Start 05/03/17 at 14 :00 Bisacodyl (Dulcolax Supp) 10 mg DAILY PRN [place] CONSTIPATION Last administered on 05/04/17 17:20; Admin Dose 10 MG; Start 05/03/17 at 17:00 Miscellaneous Information (Pending [facility] Order For Wound Care) This patient bustillo... PRN PRN XX WOUND CARE; Start 05/03/17 at 19:00 Olanzapine (Zyprexa) 2.5 mg BID PO Last administered on 05/13/17 20:54; Admin Dose 2.5 MG; Start 05/06/17 at 21:00 Pantoprazole (Protonix Tab) 40 mg DAILY@06 PO Last administered on 05/14/17 05:36; Admin Dose 40 MG; Start 05/07/17 at 06:00 Metoprolol Tartrate 50 mg 50 mg Q6 PO Last administered on 05/14/17 05:37; Admin Dose 50 MG; Start 05/07/17 at 12:00 Fluconazole/ Sodium Chloride 50 ml @ 50 mls/hr Q24H IVPB Last administered on 05/13/17 13:31; Admin Dose 50 MLS/HR; Start 05/08/17 at 13:30 Meropenem/Sodium Chloride (Merrem 1 Gm/50 ml (Pmx)) 50 ml @ 100 mls/hr Q12 IVPB Last administered on 05/13/17 22:05; Admin Dose 100 MLS/HR; Start 05/09 at 11:30 Nystatin 1 applic 1 applic BID TOP Last administered on 05/13/17 21:04; Admin Dose 1 APPLIC; Start 05/10/17 at 10:00 Vancomycin HCl (Vancocin) 250 ml @ 125 mls/hr Q24H IVPB Last administered on 05/13/17 12:33; Admin Dose 125 MLS/HR; Start 05/11/17 at 11:30 Insulin Glargine (Lantus) 24 unit DAILY@08 [place] Last administered on 05/14/17 08:17; Admin Dose 24 UNIT; Start 05/14/17 at 08:00 Hydralazine HCl (Apresoline) 10 mg Q4H PRN IV ELEVATED SYSTOLIC BP Last administered on 05/14/17t 00:53; Admin Dose 10 MG; Start 05/14/17 at 01:00 Assessment/Plan Chief Complaint/Hosp Course 1. Sinus tachycardia secondary to below: it has resolved now with treatment of sepsis and on betablocker 2. Severe sepsis and septic shock: BP has improved now 3. Severe pancreatitis: improved now. 4. Diabetes: will defer to IM 7. Severe metabolic acidosis: improved now 8. HX of Hypertension: under control now 9. History of dyslipidemia. 10. History of RLE amputation. 11. History of craniotomy and meningioma, status post craniotomy. 12. History of seizure disorder. 13. JESUSITA on CKD. :improving now 14. hypo Na: improved now. 15. mildly abnormal trop due to above 16. HTN RECOMMENDATIONS: Antibiotic is managed as per infectious disease and Dr. Vincent. Electrolytes will be checked periodically and adjusted. cont Insulin. cont metoprolol at current dose f.u with renal consultants rec. f/u surgery rec advance diet as tolerated. THANK YOU CARMEN MELO MD [facility]. Problems: CARMEN MELO MD May 14, 2017 08:39
[2017-05-14 08:54] LABS: CALCIUM 8.1 mg/dl (8.4-10.2); CREATININE 1.62 mg/dl (0.61-1.24); POTASSIUM 3.6 mmol/L (3.5-5.1)
[2017-05-14 09:01] LABS: MAGNESIUM 1.5 mg/dl (1.7-2.5); PHOSPHORUS 3.6 mg/dl (2.5-4.9)
--- NOTE | 2017-05-14 09:35 | PN ---
DATE: 05/14/2017 SUBJECTIVE: The patient is stable. No events overnight. The patient was transferred to telemetry from ICU. OBJECTIVE: VITAL SIGNS: Blood pressure 162/80, pulse 72, respirations 18. HEENT: Head is normocephalic. NECK: Supple. HEART: Regular rate. LUNGS: Show diminished breath sounds at the base. ABDOMEN: Soft, nontender to palpation without rebound or guarding. EXTREMITIES: Negative for clubbing, cyanosis, no edema. DERMATOLOGIC: No rashes. MUSCULOSKELETAL: No joint effusions. NEUROLOGIC: No change. MEDICATIONS: The patient's medications have been reviewed. LABORATORY DATA: Shows white count 14.4, hemoglobin 7.6, hematocrit 22.6, platelet count 235. The patient's BNP is currently pending. ASSESSMENT AND PLAN: 1. Nonoliguric acute kidney injury, etiology secondary to acute tubular necrosis. Renal function i s slowly improving. Continue current treatment plan, supportive care, renally dose all meds. 2. Hypomagnesemia. Continue to monitor and replete. 3. Severe sepsis, status post shock. The patient is clinically improving. Continue current antibi otic regimen. 4. Pancreatitis, improving. Continue current treatment plan. 5. Diabetes. Continue Accu-Cheks and sliding scale. 6. Anemia. Consider blood transfusion. Defer to primary team. 7. Acute encephalopathy, etiology is toxic metabolic. Dictated By: GEN VALENZUELA/DAVIE Conf#: [id number] DID#: [id number]
[2017-05-14] MEDS: BALSAM PERU/CASTOR OIL 60 GM TUBE TOP SCH ×2 (09:44→21:38)
[2017-05-14] MEDS: NYSTATIN 30 GM POWDER BTL TOP SCH ×2 (09:44→21:37)
[2017-05-14] MEDS: OLANZAPINE 2.5 MG TAB PO SCH ×2 (09:45→21:37)
[2017-05-14] MEDS: MEROPENEM 1 GM/50ML(PMX) 50 ML IVPB SCH ×2 (09:45→21:37)
[2017-05-14] MEDS: VANCOMYCIN 1 GM in NS 250 ML IVPB SCH (12:21)
--- NOTE | 2017-05-14 13:11 | CONS ---
Date/Time of Note Date/Time of Note DATE: 05/14/17 TIME: 13:09 Consult Date/Type/Reason Admit Date/Time May 02, 2017 at 14:03 Initial Consult Date 05/03/17 Type of Consultation: ID Ordering Provider: BRYAN MINOR DO Objective Vital Signs Date Time Temp Pulse Resp B/P Pulse Ox O2 Delivery O2 Flow Rate FiO2 05/14/17 12:50 71 05/14/17 11:52 99.3 18 163/79 100 05/14/17 08:00 Nasal Cannula 4.0 Intake and Output 05/13/17 05/13/17 05/14/17 15:00 23:00 07:00 Intake Total 1050 ml 350 ml Output Total 775 ml 200 ml 500 ml Balance 275 ml -200 ml -150 ml Results/Medications Result Diagram: 05/14/17 0756 05/14/17 0756 Results 24 hrs Laboratory Tests Test 05/13/17 16:15 05/13/17 18:12 05/13/17 20:53 05/14/17 07:56 Bedside Glucose 255 H 182 190 White Blood Count 14.4 H Red Blood Count 2.44 L Hemoglobin 7.6 L Hematocrit 22.6 L Mean Corpuscular Volume 92.6 Mean Corpuscular Hemoglobin 31.1 Mean Corpuscular Hemoglobin Concent 33.6 Red Cell Distribution Width 13.6 Platelet Count 235 Mean Platelet Volume 10.9 H Neutrophils % 83.9 H Lymphocytes % 7.2 L Monocytes % 6.0 Eosinophils % 1.3 Basophils % 0.1 Nucleated Red Blood Cells % 0.0 Neutrophils # 12.1 H Lymphocytes # 1.0 Monocytes # 0.9 Eosinophils # 0.2 Basophils # 0.0 Nucleated Red Blood Cells # 0.0 Sodium Level 142 Potassium Level 3.6 Chloride Level 109 Carbon Dioxide Level 26 Anion Gap 11 Blood Urea Nitrogen 24 H Creatinine 1.62 H Glucose Level 155 Calcium Level 8.1 L Phosphorus Level 3.6 Magnesium Level 1.5 L Test 05/14/17 08:11 05/14/17 12:08 Bedside Glucose 174 231 H Medications Current Medications Ondansetron HCl (Zofran Inj) 4 mg Q6H PRN IV NAUSEA AND/OR VOMITING Last administered on 05/09/17t 12:58; Admin Dose 4 MG; Start 05/02/17 at 19:00 Lorazepam (Ativan) 0.5 mg Q2H PRN IV ANXIETY Last administered on 05/14/17 01 :12; Admin Dose 0.5 MG; Start 05/02/17 at 19:00 Hydromorphone HCl (Dilaudid) 1 mg Q4H PRN IV PAIN LEVEL 7-10 Last administered on 05/12/17 00:40; Admin Dose 1 MG; Start 05/02/17 at 23:00 Miscellaneous Information 1 ea NOTE XX ; Start 05/03/17 at 14:00 Glucose (Glutose) 15 gm Q15M PRN PO DECREASED GLUCOSE; Start 05/03/17 at 14:00 Glucose (Glutose) 22.5 gm Q15M PRN PO DECREASED GLUCOSE; Start 05/03/17 at 14: 00 Dextrose (D50w Syringe) 25 ml Q15M PRN IV DECREASED GLUCOSE Last administered on 05/11/17 17:25; Admin Dose 25 ML; Start 05/03/17 at 14:00 Dextrose (D50w Syringe) 50 ml Q15M PRN IV DECREASED GLUCOSE; Start 05/03/17 at 14:00 Glucagon (Glucagen) 1 mg Q15M PRN IM DECREASED GLUCOSE; Start 05/03/17 at 14:00 Glucose (Glutose) 15 gm Q15M PRN BUCCAL DECREASED GLUCOSE; Start 05/03/17 at 14 :00 Bisacodyl (Dulcolax Supp) 10 mg DAILY PRN MI CONSTIPATION Last administered on 05/04/17 17:20; Admin Dose 10 MG; Start 05/03/17 at 17:00 Miscellaneous Information (Pending [facility] Order For Wound Care) This patient bustillo... PRN PRN XX WOUND CARE; Start 05/03/17 at 19:00 Olanzapine (Zyprexa) 2.5 mg BID PO Last administered on 05/14/17 09:45; Admin Dose 2.5 MG; Start 05/06/17 at 21:00 Pantoprazole (Protonix Tab) 40 mg DAILY@06 PO Last administered on 05/14/17 05:36; Admin Dose 40 MG; Start 05/07/17 at 06:00 Metoprolol Tartrate 50 mg 50 mg Q6 PO Last administered on 05/14/17 12:21; Admin Dose 50 MG; Start 05/07/17 at 12:00 Fluconazole/ Sodium Chloride 50 ml @ 50 mls/hr Q24H IVPB Last administered on 05/13/17 13:31; Admin Dose 50 MLS/HR; Start 05/08/17 at 13:30 Meropenem/Sodium Chloride (Merrem 1 Gm/50 ml (Pmx)) 50 ml @ 100 mls/hr Q12 IVPB Last administered on 05/14/17 09:45; Admin Dose 100 MLS/HR; Start 05/09 at 11:30 Nystatin 1 applic 1 applic BID TOP Last administered on 05/14/17 09:44; Admin Dose 1 APPLIC; Start 05/10/17 at 10:00 Vancomycin HCl (Vancocin) 250 ml @ 125 mls/hr Q24H IVPB Last administered on 05/14/17 12:21; Admin Dose 125 MLS/HR; Start 05/11/17 at 11:30 Insulin Glargine (Lantus) 24 unit DAILY@08 SC Last administered on 05/14/17 08:17; Admin Dose 24 UNIT; Start 05/14/17 at 08:00 Hydralazine HCl 10 mg 10 mg Q4H PRN IV ELEVATED SYSTOLIC BP Last administered on 05/14/17 00:53; Admin Dose 10 MG; Start 05/14/17 at 01:00 Magnesium Sulfate (Magnesium Sulfate 2 Gm/50 ml) 50 ml @ 25 mls/hr ONCE ONCE IVPB ; Start 05/14/17 at 13:30; Stop 05/14/17 at 15:29; Status UNV Assessment/Plan Chief Complaint/Hosp Course SUBJECTIVE: No acute events. Tx to tele, awake, looks comfortable. No fevers, no vomiting or diarrhea. INDWELLINGS: The patient has High, PICC line. ANTIMICROBIALS: 1. Vancomycin. 2. Meropenem. 3. Fluconazole. PHYSICAL EXAMINATION: GENERAL: This is an obese, well-developed elderly man who is in no distress. HEENT: Head atraumatic, normocephalic. Sclerae anicteric. Buccal mucosa dry. NECK: Supple. CHEST: Rise symmetrical. Breath sounds diminished to bases. HEART: S1, S2. ABDOMEN: Soft, bowel tones present. EXTREMITIES: Without cyanosis. ASSESSMENT: 1. Resolving sepsis status post shock. 2. Acute necrotizing pancreatitis. 3. Diabetes. 4. Peripheral vascular disease, history of right below knee amputation. 5. History of meningioma status post craniotomy with left occipital wound culture previously grew MRSA, current been negative. 6. Acute on chronic kidney disease. 7. Status post acute encephalopathy. PLAN: Improving. Tolerates diet. Continue present care, jonathan Davis, follow recommendations of specialists. Problems: JOHNNIE BARCLAY NP May 14, 2017 13:11
[2017-05-14] MEDS ORDERED: MAGNESIUM SULFATE 2 GM/50 ML 50 ML IVPB ONE (13:30)
[2017-05-14] MEDS: FLUCONAZOLE 100 MG/NS (PMX) 50 ML IVPB SCH (13:47)
--- NOTE | 2017-05-14 13:59 | PN ---
DATE: 05/14/2017 HISTORY OF PRESENT ILLNESS: The patient was seen. The patient was transferred to telemetry unit. Tolerating clear liquid diet. The patient's white count is improving, now to 14,000, but the patien t's hemoglobin also went down to 7.6. Will continue to monitor. The patient is arousable and respo nding to me appropriately. T-max 99.3 this morning. PHYSICAL EXAMINATION: VITAL SIGNS: Temperature 99.3, pulse 71, respirations 18, blood pressure slightly high at 163/79, s aturation 100% on 4 liters nasal cannula. GENERAL: The patient is in no acute distress. The patient is obese, the patient is pale, left fore head parietal area wound. CARDIOVASCULAR: S1 and S2, regular. LUNGS: Decreased bilaterally. ABDOMEN: Soft, distended with no significant tenderness. EXTREMITIES: Right AKA and left lower extremity, no edema. LABORATORY DATA: White count is 14.4, hemoglobin 7.6, hematocrit 23, platelet count 235, neutrophil s 84%, lymphocytes 7%. Chemistry: Sodium 142, potassium 3.6, chloride 109, bicarbonate 26, BUN is 24, creatinine 1.62, glucose of 165. Magnesium is low at 1.5, glucose level of 231. IMAGING: The patient's chest x-ray dated yesterday shows low lung volume, decreased lung congestion and left basilar atelectasis. No significant change in the right middle lobe basilar consolidation and atelectasis and elevated right hemidiaphragm. There is cardiomegaly. MEDICATIONS: Include the followin. Lantus 24 units daily. 2. Hydralazine 10 mg IV q.4h. p.r.n. 3. Insulin aspart 4 units q.a.c. meals. 4. Vancomycin dose per pharmacy. 5. Merrem IV dose per pharmacy. 6. Diflucan IV dose per pharmacy. 7. Xopenex q.4h. p.r.n. 8. Lopressor 50 hours. 9. Protonix 40 mg daily. 10. Zyprexa 2.5 b.i.d. 11. Hypoglycemia protocol. 12. Zofran p.r.n. 13. DuoNebs p.r.n. 14. Ativan p.r.n. ASSESSMENT AND PLAN: This is an unfortunate 67-year-old male with history of meningioma s tatus post craniotomy a year ago with persistent left scalp wound for the past 2 months, also CKD, r ight above the knee amputation who presented with bradycardia, sepsis, acute renal failure, acute re spiratory failure and pancreatitis. 1. Respiratory. Continue O2 support. Continue aspiration precautions. 2. Cardiovascular. Blood pressure is slightly high. Continue beta blockers. 3. Acute renal failure, resolved with hydration. 4. Diabetes mellitus. Increase NovoLog to 6 units. Continue Lantus. 5. Acute pancreatitis with necrosis, lipase is normal. Currently on clear liquid diet, may advance further management if okay by surgical team. 6. Psychiatric disorder. May consider resuming patient's Seroquel at night as it helps him with sl eep. 7. Encephalopathy, now back to baseline. 8. Right upper extremity edema has improved. 9. Renal. Replace magnesium. Continue to monitor electrolytes, again kidney function has improved . 10. We will ask physical therapy to see if the patient maybe can get out of bed. Continue SCDs to the left lower extremity. We will follow. Dictated By: DOMINGO GILMORE/DAVIE Conf#: [id number] DID#: [id number]
--- NOTE | 2017-05-14 17:14 | CONS ---
Date/Time of Note Date/Time of Note DATE: 05/14/17 TIME: 17:12 Assessment/Plan Assessment/Plan Additional Assessment/Plan Assessment and recommendations; 1. Patient admitted with acute bronchitis as well as sepsis with persistent leukocytosis, currently on appropriate antibiotic regimen. All cultures have been negative to date. 2. History of encephalopathy. 3. History of hypertension or diabetes. 4. Acute pancreatitis with interval improvement. 5. Significantly improved mental status over the last 48 hours. Continue current treatment. Consultation Date/Type/Reason Admit Date/Time May 02, 2017 at 14:03 Initial Consult Date 05/03/17 Type of Consultation: Pulmonary Referring Provider: BRYAN MINOR DO 24 HR Interval Summary Free Text/Dictation Patient's condition is stable. Has been transferred out of ICU to the medical floor. Patient remains completely awake and alert. Denies any shortness of breath, chest pain any fever or chills. General exam; elderly male, awake and alert. Currently in no distress. Exam/Review of Systems Vital Signs Vitals Vital Signs Date Time Temp Pulse Resp B/P Pulse Ox O2 Delivery O2 Flow Rate FiO2 05/14/17 15:44 98.7 67 18 136/72 98 05/14/17 08:00 Nasal Cannula 4.0 Intake and Output 05/13/17 05/13/17 05/14/17 15:00 23:00 07:00 Intake Total 1050 ml 350 ml Output Total 775 ml 200 ml 500 ml Balance 275 ml -200 ml -150 ml Exam HEENT exam; supple neck, no JVD. No lymphadenopathy. Midline trachea. No thyromegaly. Patient has a multiple carious teeth. Pupils are equal and reactive to light. There is a dressing applied over left parietal area. Chest exam; clear to auscultation. S1-S2 audible, no murmurs. Regular rhythm. Abdomen exam; soft, no organomegaly. Bowel sounds audible. Nontender. Extremity exam; no peripheral edema. There is a well-healed right below-knee amputation stump. [employer] exam; no focal motor deficit Results Result Diagram: 05/14/17 0756 05/14/17 0756 Results 24 hrs Laboratory Tests Test 05/13/17 18:12 05/13/17 20:53 05/14/17 07:56 05/14/17 08:11 Bedside Glucose 182 190 174 White Blood Count 14.4 H Red Blood Count 2.44 L Hemoglobin 7.6 L Hematocrit 22.6 L Mean Corpuscular Volume 92.6 Mean Corpuscular Hemoglobin 31.1 Mean Corpuscular Hemoglobin Concent 33.6 Red Cell Distribution Width 13.6 Platelet Count 235 Mean Platelet Volume 10.9 H Neutrophils % 83.9 H Lymphocytes % 7.2 L Monocytes % 6.0 Eosinophils % 1.3 Basophils % 0.1 Nucleated Red Blood Cells % 0.0 Neutrophils # 12.1 H Lymphocytes # 1.0 Monocytes # 0.9 Eosinophils # 0.2 Basophils # 0.0 Nucleated Red Blood Cells # 0.0 Sodium Level 142 Potassium Level 3.6 Chloride Level 109 Carbon Dioxide Level 26 Anion Gap 11 Blood Urea Nitrogen 24 H Creatinine 1.62 H Glucose Level 155 Calcium Level 8.1 L Phosphorus Level 3.6 Magnesium Level 1.5 L Test 05/14/17 12:08 Bedside Glucose 231 H Medications Medications Current Medications Ondansetron HCl (Zofran Inj) 4 mg Q6H PRN IV NAUSEA AND/OR VOMITING Last administered on 05/09/17 12:58; Admin Dose 4 MG; Start 05/02/17 at 19:00 Lorazepam (Ativan) 0.5 mg Q2H PRN IV ANXIETY Last administered on 05/14/17 01 :12; Admin Dose 0.5 MG; Start 05/02/17 at 19:00 Hydromorphone HCl (Dilaudid) 1 mg Q4H PRN IV PAIN LEVEL 7-10 Last administered on 05/12/17 00:40; Admin Dose 1 MG; Start 05/02/17 at 23:00 Miscellaneous Information 1 ea NOTE XX ; Start 05/03/17 at 14:00 Glucose (Glutose) 15 gm Q15M PRN PO DECREASED GLUCOSE; Start 05/03/17 at 14:00 Glucose (Glutose) 22.5 gm Q15M PRN PO DECREASED GLUCOSE; Start 05/03/17 at 14: 00 Dextrose (D50w Syringe) 25 ml Q15M PRN IV DECREASED GLUCOSE Last administered on 05/11/17 17:25; Admin Dose 25 ML; Start 05/03/17 at 14:00 Dextrose (D50w Syringe) 50 ml Q15M PRN IV DECREASED GLUCOSE; Start 05/03/17 at 14:00 Glucagon (Glucagen) 1 mg Q15M PRN IM DECREASED GLUCOSE; Start 05/03/17 at 14:00 Glucose (Glutose) 15 gm Q15M PRN BUCCAL DECREASED GLUCOSE; Start 05/03/17 at 14 :00 Bisacodyl (Dulcolax Supp) 10 mg DAILY PRN MI CONSTIPATION Last administered on 05/04/17 17:20; Admin Dose 10 MG; Start 05/03/17 at 17:00 Miscellaneous Information (Pending [facility] Order For Wound Care) This patient bustillo... PRN PRN XX WOUND CARE; Start 05/03/17 at 19:00 Olanzapine (Zyprexa) 2.5 mg BID PO Last administered on 05/14/17 09:45; Admin Dose 2.5 MG; Start 05/06/17 at 21:00 Pantoprazole (Protonix Tab) 40 mg DAILY@06 PO Last administered on 05/14/17 05:36; Admin Dose 40 MG; Start 05/07/17 at 06:00 Metoprolol Tartrate 50 mg 50 mg Q6 PO Last administered on 05/14/17 12:21; Admin Dose 50 MG; Start 05/07/17 at 12:00 Fluconazole/ Sodium Chloride 50 ml @ 50 mls/hr Q24H IVPB Last administered on 05/14/17 13:47; Admin Dose 50 MLS/HR; Start 05/08/17 at 13:30 Meropenem/Sodium Chloride (Merrem 1 Gm/50 ml (Pmx)) 50 ml @ 100 mls/hr Q12 IVPB Last administered on 05/14/17 09:45; Admin Dose 100 MLS/HR; Start 05/09 at 11:30 Nystatin (Nystatin Powder) 1 applic BID TOP Last administered on 05/14/17 09: 44; Admin Dose 1 APPLIC; Start 05/10/17 at 10:00 Insulin Glargine (Lantus) 24 unit DAILY@08 SC Last administered on 05/14/17 08:17; Admin Dose 24 UNIT; Start 05/14/17 at 08:00 Hydralazine HCl (Apresoline) 10 mg Q4H PRN IV ELEVATED SYSTOLIC BP Last administered on 05/14/17 00:53; Admin Dose 10 MG; Start 05/14/17 at 01:00 SUSANNAH GUERRIER 18, 2017 17:14
--- NOTE | 2017-05-14 17:50 | PN ---
Date/Time of Note Date/Time of Note DATE: 05/14/17 TIME: 17:47 Assessment/Plan Lines/Catheters IV Catheter Type (from [facility]): PICC Line High in Place (from [facility]): Yes Assessment/Plan Assessment/Plan [facility] Progress Note Date of Service: 05/14/2017 Location of Service: ICU Today's Assessment & Plan: Overall stable with continued improvement. Pancreatitis seems to be improving. Abdomen remains benign. No indications of major postoperative complications or wound problems. No indication for acute surgical intervention. Previous assessment that applies today: A very-pleasant but unfortunate 67-year-old gentleman with multiple comorbidities including DM2 and prior CVA among others (please see below), presenting with acute pancreatitis complicated by necrosis but without obvious evidence of infected necrosis. Etiology of pancreatitis is likely gallstone related. Condition is tenuous and prognosis is guarded given his multiple comorbidities, including malnutrition, DM2, CVA, renal insufficiency, institutionalized status, amputation, etc. With above assessment, I've recommended the followin. Keep in-house 2. Advance diet slowly to low fat regular over the course of the next few days with amylase checks 3. Consider lowering intravenous fluids rate 4. Consider discontinuing antimicrobials (elevated WBC likely due to inflammatory response of the pancreatitis) 5. Strict I's and O's 6. Labs in a.m. 7. Long-term plan would be inpatient or outpatient lap joel to help prevent future episodes 8. Please avoid contrast in axial images since likely will not exchange specialist 9. Please include me in all major decisions, specially decisions to scan the patient or to intervene with IR (very important to maintain multidisciplinary care for maximum value) 10. Consider involving PT/OT Thank you very much for having me involved in the care of this very pleasant patient and I'm certain wonderful family. If you have any questions, please feel free to contact me at [phone]. Nature of presenting problem: High severity Please note that, given the extensive number of diagnoses or management options , the extensive amount and/or complexity of data needed to be reviewed, and high risk of complications and/or morbidity or mortality, this qualifies as high complexity type of decision-making. Disclaimers: 1. Inadvertent spelling and grammatical errors are likely due to electronic health record (EHR)/dictation software used and do not reflect on the quality of delivered patient care. 2. The electronic timestamp recorded on this note does not necessarily reflect the actual date and time of the visit or the service. 3. Portions of this note may have been created through electronic templates and computer algorithms that might bring in information either from the system or from other physicians and providers. Please note that such information may or may not contain errors, the occurrence of which are outside of my control. In general (but not always) this happens either in the beginning or at the end of the note. The portion of the note that I have created are generally done in 1 continuous block of text, flanked at the beginning and at the end by " ", and entered into one field in the EHR. 4. There may be other unanticipated errors in the note that are outside of my control. I can only attest to the portions of the note that I have created. Updated clinical summary: A very-pleasant but unfortunate 67-year-old gentleman with multiple comorbidities including DM2 and prior CVA among others (please see below), presenting with acute pancreatitis complicated by necrosis but without obvious evidence of infected necrosis. Etiology of pancreatitis is likely gallstone related. Comorbidities: 1. BMI 29 2. Diabetes mellitus, complicated by vascular disease (s/p R BKA) 3. CVA with right-sided weakness 4. Dyslipidemia 5. Seizure disorder 6. Bipolar disorder 7. History of CKD 8. Hypertension 9. Malnutrition (Albumin 2.3 [facility] 05/10/17) 10. Expressive aphasia 11. Depression 12. Left scalp wound 13. Meningioma resection 2016 (Dr. Christian) 14. Rehab patient ([facility]) Subjective: No major events or complaints; reported no abd pain and under control with medications; reports being hungry; no n/v/d; no sob or cp; + bowel activity; + flatus; + BM and normal;- activity Objective: Vitals: See below Exam: GENERAL: On exam, the patient was laying in bed and appeared to be comfortable and in no acute distress. ABDOMEN: Soft, nontender and nondistended. There are no peritoneal signs or guarding. SKIN: Skin appears to be pink and feels warm to touch. NEUROLOGIC: Patient is awake, alert and followed commands appropriately. Exam/Review of Systems Vital Signs Vitals Vital Signs Date Time Temp Pulse Resp B/P Pulse Ox O2 Delivery O2 Flow Rate FiO2 05/14/17 17:19 4.0 05/14/17 17:15 98 05/14/17 15:44 98.7 18 136/72 98 05/14/17 08:00 Nasal Cannula Intake and Output 05/13/17 05/13/17 05/14/17 15:00 23:00 07:00 Intake Total 1050 ml 350 ml Output Total 775 ml 200 ml 500 ml Balance 275 ml -200 ml -150 ml Results Result Diagram: 05/14/17 0756 05/14/17 0756 CARA ROY M.D. May 14, 2017 17:50
--- NOTE | 2017-05-14 17:59 | CONS ---
Date/Time of Note Date/Time of Note DATE: 05/14/17 TIME: 17:58 Assessment/Plan Assessment/Plan Additional Assessment/Plan Additional Assessment/Plan IMPRESSION: 1. 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 2. Diabetes mellitus. 3. Leukocytosis, which is most probably related to the necrosis in the pancreas. 4. Cerebrovascular accident. 5. Renal failure. 6. History of meningioma 7. Bipolar disorder 8. Expressive aphasia Plan Continue all supportive care Patient should never get Januvia in the future. Patient CT scan to be repeated after 4-5 weeks to look for organization of necrotizing tissue or development of pseudocyst Consultation Date/Type/Reason Admit Date/Time May 02, 2017 at 14:03 Initial Consult Date 05/03/17 Type of Consultation: Pulmonary Referring Provider: BRYAN MINOR DO 24 HR Interval Summary Constitutional: improved, no complaints Exam/Review of Systems Vital Signs Vitals Vital Signs Date Time Temp Pulse Resp B/P Pulse Ox O2 Delivery O2 Flow Rate FiO2 05/14/17 17:19 4.0 05/14/17 17:15 98 05/14/17 15:44 98.7 18 136/72 98 05/14/17 08:00 Nasal Cannula Intake and Output 05/13/17 05/13/17 05/14/17 15:00 23:00 07:00 Intake Total 1050 ml 350 ml Output Total 775 ml 200 ml 500 ml Balance 275 ml -200 ml -150 ml Exam Constitutional: alert, oriented, well developed Psych: nl mood/affect, no complaints Head: atraumatic, normocephalic Eyes: EOMI, PERRL, nl conjunctiva, nl lids, nl sclera ENMT: nl external ears & nose, nl lips & teeth, nl nasal mucosa & septum Neck: non-tender, supple Respiratory: clear to auscultation, normal air movement Cardiovascular: nl pulses, regular rate and rhythm Gastrointestinal: nl liver, spleen, non-tender, soft Musculoskeletal: nl extremities to inspection, nl gait and stance Extremities: normal pulses 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9 H Lymphocytes % 7.2 L Monocytes % 6.0 Eosinophils % 1.3 Basophils % 0.1 Nucleated Red Blood Cells % 0.0 Neutrophils # 12.1 H Lymphocytes # 1.0 Monocytes # 0.9 Eosinophils # 0.2 Basophils # 0.0 Nucleated Red Blood Cells # 0.0 Sodium Level 142 Potassium Level 3.6 Chloride Level 109 Carbon Dioxide Level 26 Anion Gap 11 Blood Urea Nitrogen 24 H Creatinine 1.62 H Glucose Level 155 Calcium Level 8.1 L Phosphorus Level 3.6 Magnesium Level 1.5 L Test 05/14/17 12:08 05/14/17 17:22 Bedside Glucose 231 H 152 Medications Medications Current Medications Ondansetron HCl (Zofran Inj) 4 mg Q6H PRN IV NAUSEA AND/OR VOMITING Last administered on 05/09/17 12:58; Admin Dose 4 MG; Start 05/02/17 at 19:00 Lorazepam (Ativan) 0.5 mg Q2H PRN IV ANXIETY Last administered on 05/14/17 01 :12; Admin Dose 0.5 MG; Start 05/02/17 at 19:00 Hydromorphone HCl (Dilaudid) 1 mg Q4H PRN IV PAIN LEVEL 7-10 Last administered on 05/12/17 00:40; Admin Dose 1 MG; Start 05/02/17 at 23:00 Miscellaneous Information 1 ea NOTE XX ; Start 05/03/17 at 14:00 Glucose (Glutose) 15 gm Q15M PRN PO DECREASED GLUCOSE; Start 05/03/17 at 14:00 Glucose (Glutose) 22.5 gm Q15M PRN PO DECREASED GLUCOSE; Start 05/03/17 at 14: 00 Dextrose (D50w Syringe) 25 ml Q15M PRN IV DECREASED GLUCOSE Last administered on 05/11/17 17:25; Admin Dose 25 ML; Start 05/03/17 at 14:00 Dextrose (D50w Syringe) 50 ml Q15M PRN IV DECREASED GLUCOSE; Start 05/03/17 at 14:00 Glucagon (Glucagen) 1 mg Q15M PRN IM DECREASED GLUCOSE; Start 05/03/17 at 14:00 Glucose (Glutose) 15 gm Q15M PRN BUCCAL DECREASED GLUCOSE; Start 05/03/17 at 14 :00 Bisacodyl (Dulcolax Supp) 10 mg DAILY PRN [place] CONSTIPATION Last administered on 05/04/17 17:20; Admin Dose 10 MG; Start 05/03/17 at 17:00 Miscellaneous Information (Pending [facility] Order For Wound Care) This patient bustillo... PRN PRN XX WOUND CARE; Start 05/03/17 at 19:00 Olanzapine (Zyprexa) 2.5 mg BID PO Last administered on 05/14/17 09:45; Admin Dose 2.5 MG; Start 05/06/17 at 21:00 Pantoprazole (Protonix Tab) 40 mg DAILY@06 PO Last administered on 05/14/17 05:36; Admin Dose 40 MG; Start 05/07/17 at 06:00 Metoprolol Tartrate 50 mg 50 mg Q6 PO Last administered on 05/14/17 12:21; Admin Dose 50 MG; Start 05/07/17 at 12:00 Fluconazole/ Sodium Chloride 50 ml @ 50 mls/hr Q24H IVPB Last administered on 05/14/17 13:47; Admin Dose 50 MLS/HR; Start 05/08/17 at 13:30 Meropenem/Sodium Chloride (Merrem 1 Gm/50 ml (Pmx)) 50 ml @ 100 mls/hr Q12 IVPB Last administered on 05/14/17 09:45; Admin Dose 100 MLS/HR; Start 05/09 at 11:30 Nystatin (Nystatin Powder) 1 applic BID TOP Last administered on 05/14/17 09: 44; Admin Dose 1 APPLIC; Start 05/10/17 at 10:00 Insulin Glargine (Lantus) 24 unit DAILY@08 SC Last administered on 05/14/17 08:17; Admin Dose 24 UNIT; Start 05/14/17 at 08:00 Hydralazine HCl (Apresoline) 10 mg Q4H PRN IV ELEVATED SYSTOLIC BP Last administered on 05/14/17t 00:53; Admin Dose 10 MG; Start 05/14/17 at 01:00 JOHNY MCCURDY MD May 14, 2017 17:59
--- NOTE | 2017-05-14 21:05 | PN ---
Date/Time of Note Date/Time of Note DATE: 05/14/17 TIME: 21:05 Assessment/Plan Lines/Catheters IV Catheter Type (from Nrsg): PICC Line High in Place (from Nrsg): Yes Assessment/Plan Chief Complaint/Hosp Course 1. Abdominal pain 2nd pancreatitis with ileus. Worsening leukocytosis with pancreatic necrosis. No large body of fluid collections. HBS input appreciated -pain management -continue to monitor -no abx per HBS -close monitoring 2. Sepsis with lactic acidosis; +Urine cx, ? other. Improved -supportive -hannon culture- head shunt drainage sent for culture -as above 3. BMI 29 -eventual diet/exercise optimization 4. ARF: increasing uop today, cr much improved -judicious fluids -avoid nephrotoxic meds -poss HD per renal 5. Uncontrolled Diabetes: blood sugar labile -optimize sugar control -eventual diet optimization 6. Constipation/Ileus: Improved with bowel function; -optimize bowel regimen eventually 8. Electrolyte imbalance -optimize lytes Thank you, Problems: Exam/Review of Systems Vital Signs Vitals Vital Signs Date Time Temp Pulse Resp B/P Pulse Ox O2 Delivery O2 Flow Rate FiO2 05/14/17 20:42 3.0 05/14/17 20:30 64 05/14/17 20:22 98.9 16 165/81 96 05/14/17 08:00 Nasal Cannula Intake and Output 05/13/17 05/13/17 05/14/17 15:00 23:00 07:00 Intake Total 1050 ml 350 ml Output Total 775 ml 200 ml 500 ml Balance 275 ml -200 ml -150 ml Results Result Diagram: 05/14/17 0756 05/14/17 0756 DEVON CORONA MD May 14, 2017 21:05
[2017-05-15] VITALS (12 sets, daily range): BP systolic 128–162; BP diastolic 62–87; PULSE 68–94; RESP 19–23
[2017-05-15] MEDS: METOPROLOL 25 MG TAB PO SCH ×4 (00:45→17:52)
[2017-05-15] MEDS: LORAZEPAM 2 MG INJ IV PRN (00:46)
[2017-05-15] MEDS: PANTOPRAZOLE (EC) 40 MG TAB PO SCH (06:42)
[2017-05-15] MEDS: INSULIN ASPART [NOVOLOG] 3 ML PEN SC SCH ×7 (07:25→20:39)
[2017-05-15] MEDS: MEROPENEM 1 GM/50ML(PMX) 50 ML IVPB SCH ×2 (08:34→20:31)
[2017-05-15] MEDS: OLANZAPINE 2.5 MG TAB PO SCH ×2 (08:35→20:31)
[2017-05-15] MEDS: BALSAM PERU/CASTOR OIL 60 GM TUBE TOP SCH ×2 (08:35→20:32)
[2017-05-15] MEDS: NYSTATIN 30 GM POWDER BTL TOP SCH ×2 (08:35→20:32)
[2017-05-15] MEDS: INSULIN GLARGINE [LANtus] 3 ML PEN SC SCH (08:36)
[2017-05-15 09:13] LABS: BASOPHILS % 0.2 % (0.0-2.0); EOSINOPHILS # 0.2 10^3/ul (0.0-0.5); EOSINOPHILS % 1.8 % (0.0-7.0); HEMATOCRIT 23.6 % (42.0-52.0); HEMOGLOBIN 7.7 g/dl (14.0-18.0); LYMPHOCYTES # 1.1 10^3/ul (0.8-2.9); LYMPHOCYTES % 10.4 % (15.0-51.0); MEAN CORPUSCULAR HEMOGLOBIN 30.8 pg (29.0-33.0); MEAN CORPUSCULAR HGB CONC 32.6 g/dl (32.0-37.0); MEAN CORPUSCULAR VOLUME 94.4 fl (82.0-101.0); MEAN PLATELET VOLUME 11.2 fl (7.4-10.4); MONOCYTE # 0.8 10^3/ul (0.3-0.9); MONOCYTES % 7.4 % (0.0-11.0); NEUTROPHIL # 8.3 10^3/ul (1.6-7.5); PLATELET COUNT 257 10^3/UL (140-415); RED CELL DISTRIBUTION WIDTH 13.7 % (11.5-14.5); WHITE BLOOD COUNT 10.5 10^3/ul (4.8-10.8)
[2017-05-15 09:31] LABS: MAGNESIUM 1.8 mg/dl (1.7-2.5); PHOSPHORUS 3.7 mg/dl (2.5-4.9)
[2017-05-15 09:32] LABS: ALBUMIN 2.2 g/dl (3.3-4.9); ALBUMIN/GLOBULIN RATIO 0.73; BILIRUBIN,INDIRECT 0.5 mg/dl (0-1.1); BILIRUBIN,TOTAL 0.5 mg/dl (0.2-1.3); CALCIUM 8.2 mg/dl (8.4-10.2); CREATININE 1.61 mg/dl (0.61-1.24); POTASSIUM 3.6 mmol/L (3.5-5.1); TOTAL PROTEIN 5.2 g/dl (6.1-8.1)
--- NOTE | 2017-05-15 09:51 | CONS ---
Date/Time of Note Date/Time of Note DATE: 05/15/17 TIME: 09:50 Assessment/Plan Assessment/Plan Additional Assessment/Plan IMPRESSION: 1. 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 2. Diabetes mellitus. 3. Leukocytosis, which is most probably related to the necrosis in the pancreas. 4. Cerebrovascular accident. 5. Renal failure. 6. History of meningioma 7. Bipolar disorder 8. Expressive aphasia Plan Continue all supportive care Patient should not get Januvia in the future. Patient CT scan to be repeated after 4-5 weeks to look for organization of necrotizing tissue or development of pseudocyst Consultation Date/Type/Reason Admit Date/Time May 02, 2017 at 14:03 Initial Consult Date 05/03/17 Type of Consultation: Pulmonary Referring Provider: BRYAN MINOR DO 24 HR Interval Summary Constitutional: no complaints Exam/Review of Systems Vital Signs Vitals Vital Signs Date Time Temp Pulse Resp B/P Pulse Ox O2 Delivery O2 Flow Rate FiO2 05/15/17 08:33 68 05/15/17 08:08 98.9 19 132/87 100 05/15/17 00:05 3.0 05/14/17 20:00 Nasal Cannula Intake and Output 05/14/17 05/14/17 05/15/17 15:00 23:00 07:00 Intake Total 1200 ml 350 ml Output Total 1500 ml 2000 ml Balance -300 ml -1650 ml Exam Constitutional: alert, oriented, well developed Psych: nl mood/affect, no complaints Head: atraumatic, normocephalic Eyes: EOMI, PERRL, nl conjunctiva, nl lids, nl sclera ENMT: nl external ears & nose, nl lips & teeth, nl nasal mucosa & septum Neck: non-tender, supple Respiratory: clear to auscultation, normal air movement Cardiovascular: nl pulses, regular rate and rhythm Gastrointestinal: nl liver, spleen, non-tender, soft Musculoskeletal: nl extremities to inspection, nl gait and stance Extremities: normal pulses Neurological: INJURY/SAFETY HAZARD ASSESSMENT II-XII intact, nl mental status, nl speech, nl strength Skin: nl turgor, No rash or lesions Lymph: nl lymph nodes Results Result Diagram: 05/15/17 0721 05/15/17 0721 Results 24 hrs Laboratory Tests Test 05/14/17 12:08 05/14/17 17:22 05/14/17 21:40 05/15/17 07:21 Bedside Glucose 231 H 152 140 White Blood Count 10.5 # Red Blood Count 2.50 L Hemoglobin 7.7 L Hematocrit 23.6 L Mean Corpuscular Volume 94.4 Mean Corpuscular Hemoglobin 30.8 Mean Corpuscular Hemoglobin Concent 32.6 Red Cell Distribution Width 13.7 Platelet Count 257 Mean Platelet Volume 11.2 H Neutrophils % 79.0 H Lymphocytes % 10.4 L Monocytes % 7.4 Eosinophils % 1.8 Basophils % 0.2 Nucleated Red Blood Cells % 0.0 Neutrophils # 8.3 H Lymphocytes # 1.1 Monocytes # 0.8 Eosinophils # 0.2 Basophils # 0.0 Nucleated Red Blood Cells # 0.0 Sodium Level 143 Potassium Level 3.6 Chloride Level 108 Carbon Dioxide Level 27 Anion Gap 12 Blood Urea Nitrogen 22 H Creatinine 1.61 H Glucose Level 109 # Calcium Level 8.2 L Phosphorus Level 3.7 Magnesium Level 1.8 Total Bilirubin 0.5 Direct Bilirubin 0.00 Indirect Bilirubin 0.5 Aspartate Amino Transf (AST/SGOT) 19 Alanine Aminotransferase (ALT/SGPT) 32 Alkaline Phosphatase 137 H Total Protein 5.2 L Albumin 2.2 L Globulin 3.00 Albumin/Globulin Ratio 0.73 Lipase 23 Test 05/15/17 07:54 Bedside Glucose 129 Medications Medications Current Medications Ondansetron HCl (Zofran Inj) 4 mg Q6H PRN IV NAUSEA AND/OR VOMITING Last administered on 05/09/17 12:58; Admin Dose 4 MG; Start 05/02/17 at 19:00 Lorazepam (Ativan) 0.5 mg Q2H PRN IV ANXIETY Last administered on 05/15/17 00 :46; Admin Dose 0.5 MG; Start 05/02/17 at 19:00 Hydromorphone HCl (Dilaudid) 1 mg Q4H PRN IV PAIN LEVEL 7-10 Last administered on 05/12/17 00:40; Admin Dose 1 MG; Start 05/02/17 at 23:00 Miscellaneous Information 1 ea NOTE XX ; Start 05/03/17 at 14:00 Glucose (Glutose) 15 gm Q15M PRN PO DECREASED GLUCOSE; Start 05/03/17 at 14:00 Glucose (Glutose) 22.5 gm Q15M PRN PO DECREASED GLUCOSE; Start 05/03/17 at 14: 00 Dextrose (D50w Syringe) 25 ml Q15M PRN IV DECREASED GLUCOSE Last administered on 05/11/17 17:25; Admin Dose 25 ML; Start 05/03/17 at 14:00 Dextrose (D50w Syringe) 50 ml Q15M PRN IV DECREASED GLUCOSE; Start 05/03/17 at 14:00 Glucagon (Glucagen) 1 mg Q15M PRN IM DECREASED GLUCOSE; Start 05/03/17 at 14:00 Glucose (Glutose) 15 gm Q15M PRN BUCCAL DECREASED GLUCOSE; Start 05/03/17 at 14 :00 Bisacodyl (Dulcolax Supp) 10 mg DAILY PRN [place] CONSTIPATION Last administered on 05/04/17 17:20; Admin Dose 10 MG; Start 05/03/17 at 17:00 Miscellaneous Information (Pending [facility] Order For Wound Care) This patient bustillo... PRN PRN XX WOUND CARE; Start 05/03/17 at 19:00 Olanzapine (Zyprexa) 2.5 mg BID PO Last administered on 05/15/17 08:35; Admin Dose 2.5 MG; Start 05/06/17 at 21:00 Pantoprazole (Protonix Tab) 40 mg DAILY@06 PO Last administered on 05/15/17 06:42; Admin Dose 40 MG; Start 05/07/17 at 06:00 Metoprolol Tartrate 50 mg 50 mg Q6 PO Last administered on 05/15/17 06:42; Admin Dose 50 MG; Start 05/07/17 at 12:00 Fluconazole/ Sodium Chloride 50 ml @ 50 mls/hr Q24H IVPB Last administered on 05/14/17 13:47; Admin Dose 50 MLS/HR; Start 05/08/17 at 13:30 Meropenem/Sodium Chloride (Merrem 1 Gm/50 ml (Pmx)) 50 ml @ 100 mls/hr Q12 IVPB Last administered on 05/15/17 08:34; Admin Dose 100 MLS/HR; Start 05/09 at 11:30 Nystatin (Nystatin Powder) 1 applic BID TOP Last administered on 05/15/17 08: 35; Admin Dose 1 APPLIC; Start 05/10/17 at 10:00 Insulin Glargine (Lantus) 24 unit DAILY@08 SC Last administered on 05/15/17 08:36; Admin Dose 24 UNIT; Start 05/14/17 at 08:00 Hydralazine HCl (Apresoline) 10 mg Q4H PRN IV ELEVATED SYSTOLIC BP Last administered on 05/14/17 00:53; Admin Dose 10 MG; Start 05/14/17 at 01:00 JOHNY MCCURDY MD May 15, 2017 09:51
--- NOTE | 2017-05-15 10:14 | CONS ---
Date/Time of Note Date/Time of Note DATE: 05/15/17 TIME: 10:12 Consult Date/Type/Reason Admit Date/Time May 02, 2017 at 14:03 Initial Consult Date 05/03/17 Type of Consultation: CARD Ordering Provider: BRYAN MINOR DO Subjective CARDIOLOGY FOLLOW UP NOTE: S: d/w staff and rhythm was reviewed. pt remains in NSR . BP has been well controlled now. he denies abdominal pain to me. he denies any cp or sob to me. he is able to eat now O: General: in no distress HEENT: NC/AT. pupils are equal. round. NECK: NO JVD. no stridor. CV: tachycardic. . systolic murmur; no gallop or rubs. PULM: no wheezing or rhonchi. GI: mild tenderness. no rebound. no guarding Extremity: s/p R LE amputation. neuro: awake and alert. with right sided weakness Psych: calm and pleasant rectal: deferred : normal male ECHO Personally reviewed: 1. Hyperdynamic left ventricular systolic function. Normal left ventricular cavity size. Mild concentric left ventricular hypertrophy. Ejection fraction is visually estimated at 70 %. Abnormal Diastolic Function. 2. The left atrium is normal in size. 3. Mild mitral leaflet calcification. Mild mitral annular calcification. Trace mitral regurgitation. 4. No significant aortic stenosis or insufficiency. Aortic cusps appear mildly calcified. Non coronary cusp appears moderately calcified. 5. Normal appearance of the tricuspid valve. Estimated peak PA systolic pressure 56 mmHg. There is mild tricuspid regurgitation. 6. The IVC is not well visualized. Objective Vital Signs Date Time Temp Pulse Resp B/P Pulse Ox O2 Delivery O2 Flow Rate FiO2 05/15/17 08:33 68 05/15/17 08:08 98.9 19 132/87 100 05/15/17 00:05 3.0 05/14/17 20:00 Nasal Cannula Intake and Output 05/14/17 05/14/17 05/15/17 15:00 23:00 07:00 Intake Total 1200 ml 350 ml Output Total 1500 ml 2000 ml Balance -300 ml -1650 ml Results/Medications Result Diagram: 05/15/17 0721 05/15/17 0721 Results 24 hrs Laboratory Tests Test 05/14/17 12:08 05/14/17 17:22 05/14/17 21:40 05/15/17 07:21 Bedside Glucose 231 H 152 140 White Blood Count 10.5 # Red Blood Count 2.50 L Hemoglobin 7.7 L Hematocrit 23.6 L Mean Corpuscular Volume 94.4 Mean Corpuscular Hemoglobin 30.8 Mean Corpuscular Hemoglobin Concent 32.6 Red Cell Distribution Width 13.7 Platelet Count 257 Mean Platelet Volume 11.2 H Neutrophils % 79.0 H Lymphocytes % 10.4 L Monocytes % 7.4 Eosinophils % 1.8 Basophils % 0.2 Nucleated Red Blood Cells % 0.0 Neutrophils # 8.3 H Lymphocytes # 1.1 Monocytes # 0.8 Eosinophils # 0.2 Basophils # 0.0 Nucleated Red Blood Cells # 0.0 Sodium Level 143 Potassium Level 3.6 Chloride Level 108 Carbon Dioxide Level 27 Anion Gap 12 Blood Urea Nitrogen 22 H Creatinine 1.61 H Glucose Level 109 # Calcium Level 8.2 L Phosphorus Level 3.7 Magnesium Level 1.8 Total Bilirubin 0.5 Direct Bilirubin 0.00 Indirect Bilirubin 0.5 Aspartate Amino Transf (AST/SGOT) 19 Alanine Aminotransferase (ALT/SGPT) 32 Alkaline Phosphatase 137 H Total Protein 5.2 L Albumin 2.2 L Globulin 3.00 Albumin/Globulin Ratio 0.73 Lipase 23 Test 05/15/17 07:54 Bedside Glucose 129 Medications Current Medications Ondansetron HCl (Zofran Inj) 4 mg Q6H PRN IV NAUSEA AND/OR VOMITING Last administered on 05/09/17 12:58; Admin Dose 4 MG; Start 05/02/17 at 19:00 Lorazepam (Ativan) 0.5 mg Q2H PRN IV ANXIETY Last administered on 05/15/17 00 :46; Admin Dose 0.5 MG; Start 05/02/17 at 19:00 Hydromorphone HCl (Dilaudid) 1 mg Q4H PRN IV PAIN LEVEL 7-10 Last administered on 05/12/17 00:40; Admin Dose 1 MG; Start 05/02/17 at 23:00 Miscellaneous Information 1 ea NOTE XX ; Start 05/03/17 at 14:00 Glucose (Glutose) 15 gm Q15M PRN PO DECREASED GLUCOSE; Start 05/03/17 at 14:00 Glucose (Glutose) 22.5 gm Q15M PRN PO DECREASED GLUCOSE; Start 05/03/17 at 14: 00 Dextrose (D50w Syringe) 25 ml Q15M PRN IV DECREASED GLUCOSE Last administered on 05/11/17 17:25; Admin Dose 25 ML; Start 05/03/17 at 14:00 Dextrose (D50w Syringe) 50 ml Q15M PRN IV DECREASED GLUCOSE; Start 05/03/17 at 14:00 Glucagon (Glucagen) 1 mg Q15M PRN IM DECREASED GLUCOSE; Start 05/03/17 at 14:00 Glucose (Glutose) 15 gm Q15M PRN BUCCAL DECREASED GLUCOSE; Start 05/03/17 at 14 :00 Bisacodyl (Dulcolax Supp) 10 mg DAILY PRN [place] CONSTIPATION Last administered on 05/04/17 17:20; Admin Dose 10 MG; Start 05/03/17 at 17:00 Miscellaneous Information [facility] This patient bustillo... PRN PRN XX WOUND CARE; Start 05/03/17 at 19:00 Olanzapine (Zyprexa) 2.5 mg BID PO Last administered on 05/15/17 08:35; Admin Dose 2.5 MG; Start 05/06/17 at 21:00 Pantoprazole (Protonix Tab) 40 mg DAILY@06 PO Last administered on 05/15/17 06:42; Admin Dose 40 MG; Start 05/07/17 at 06:00 Metoprolol Tartrate 50 mg 50 mg Q6 PO Last administered on 05/15/17 06:42; Admin Dose 50 MG; Start 05/07/17 at 12:00 Fluconazole/ Sodium Chloride 50 ml @ 50 mls/hr Q24H IVPB Last administered on 05/14/17 13:47; Admin Dose 50 MLS/HR; Start 05/08/17 at 13:30 Meropenem/Sodium Chloride (Merrem 1 Gm/50 ml (Pmx)) 50 ml @ 100 mls/hr Q12 IVPB Last administered on 05/15/17 08:34; Admin Dose 100 MLS/HR; Start 05/09 at 11:30 Nystatin (Nystatin Powder) 1 applic BID TOP Last administered on 05/15/17 08: 35; Admin Dose 1 APPLIC; Start 05/10/17 at 10:00 Insulin Glargine (Lantus) 24 unit DAILY@08 SC Last administered on 05/15/17 08:36; Admin Dose 24 UNIT; Start 05/14/17 at 08:00 Hydralazine HCl (Apresoline) 10 mg Q4H PRN IV ELEVATED SYSTOLIC BP Last administered on 05/14/17 00:53; Admin Dose 10 MG; Start 05/14/17 at 01:00 Assessment/Plan Chief Complaint/Hosp Course 1. Sinus tachycardia secondary to below: it has resolved now with treatment of sepsis and on betablocker 2. S/P sepsis and septic shock: BP has improved now 3. Severe pancreatitis: improved now. 4. Diabetes: will defer to IM 7. Severe metabolic acidosis: improved now 8. HX of Hypertension: under control now 9. History of dyslipidemia. 10. History of RLE amputation. 11. History of craniotomy and meningioma, status post craniotomy. 12. History of seizure disorder. 13. JESUSITA on CKD. :improving now 14. hypo Na: improved now. 15. mildly abnormal trop due to above 16. HTN RECOMMENDATIONS: Antibiotic is managed as per infectious disease and Dr. Vincent. Electrolytes will be checked periodically and adjusted. cont Insulin. ADJUSTMENT PER IM. cont metoprolol at current dose f.u with renal consultants rec. f/u surgery and GI rec THANK YOU CARMEN MELO MD [facility]. Problems: CARMEN MELO MD May 15, 2017 10:14
--- NOTE | 2017-05-15 10:56 | PN ---
DATE: 05/15/2017 SUBJECTIVE: The patient is stable. No events overnight. No fevers, chills, nausea, vomiting. OBJECTIVE: VITAL SIGNS: Blood pressure 132/87, pulse 68, respirations 19, temperature 98.9. HEENT: Head is normocephalic. NECK: Supple. HEART: Regular rate. LUNGS: Show diminished breath sounds at base. ABDOMEN: Soft, nontender to palpation. No rebound or guarding. EXTREMITIES: Negative for clubbing, cyanosis, no edema. DERMATOLOGIC: No rashes. MUSCULOSKELETAL: No joint effusions. NEUROLOGIC: No change in exam. MEDICATIONS: The patient's medications have been reviewed. LABORATORY DATA: Pending. ASSESSMENT AND PLAN: 1. Nonoliguric acute kidney injury, etiology secondary to acute tubular necrosis. Renal function h as improved with IV hydration. Continue current treatment plan, supportive care, renally dose medic ations. 2. Hypomagnesemia. Continue to monitor and replete. 3. Severe sepsis, status post shock. The patient is clinically improving. Continue current antibi otic regimen. 4. Pancreatitis, improving. 5. Diabetes, continue Accu-Cheks and sliding scale. 6. Anemia. Continue to monitor hemoglobin and hematocrit levels. Consider blood transfusion. 7. Acute encephalopathy. The etiology is toxic metabolic. Continue to monitor. Dictated By: GEN VALENZUELA/DAVIE Conf#: [id number] DID#: [id number]
[2017-05-15] MEDS: FLUCONAZOLE 100 MG/NS (PMX) 50 ML IVPB SCH (13:36)
--- NOTE | 2017-05-15 15:33 | PN ---
DATE: 05/15/2017 SUBJECTIVE: Earlier, the patient had episodes of shortness of breath and congestion. He was placed on BiPAP, now he wants that to be removed. The patient will be placed on nasal cannula. Noted a n ormal white count today at 10.5, but H and H remains low with hemoglobin of 7.7. PHYSICAL EXAMINATION: VITAL SIGNS: Temperature 98.7, pulse up to 101, respirations 26, blood pressure 162/85, saturation 96% on 5 liters. GENERAL: The patient is in no acute distress. HEENT: The patient has a left temporal wound. CARDIOVASCULAR: S1 and S2. LUNGS: Mild rhonchi bilaterally. ABDOMEN: Soft, nontender, slightly distended. EXTREMITIES: Right AKA. Trace edema in his extremities. LABORATORY DATA: White count is 10.5, hemoglobin 7.7, hematocrit 24, platelet count 257, neutrophil s 79%, lymphocytes 7%. Chemistry: Sodium is 143, potassium 3.6, chloride 108, bicarbonate 27, BUN is 22, creatinine 0.61, glucose of 109, past glucose of 154 and 129. MEDICATIONS: Reviewed include: 1. Insulin aspart 6 units before every meal. 2. Lantus 24 units daily. 3. Hydralazine p.r.n. 4. Insulin aspart per sliding scale. 5. Nystatin b.i.d. topically. 6. Merrem IV q.12h. 7. Diflucan IV daily. 8. Xopenex q.4h. p.r.n. 9. Lopressor 50 q.6h. 10. Protonix 40 mg daily. 11. Zyprexa 2.5 b.i.d. 12. Dulcolax p.r.n. hypoglycemia protocol as directed. 13. Dilaudid p.r.n. 14. Zofran p.r.n. 15. DuoNeb p.r.n. 16. Ativan p.r.n. ASSESSMENT AND PLAN: This is a 67-year-old male with history of meningioma status post cr aniotomy year ago with persistent left scalp wound in the past 2 months, CKD, right [id number] a mputations, presented septic acute renal failure, respiratory and pancreatitis. 1. Respiratory. Follow up will obtain another chest x-ray. May benefit from diuretics. Breathing treatments as needed to be provided. 2. Cardiovascular. Continue current blood pressure medications. 3. Acute renal failure. Monitor, overall stable. 4. Diabetes mellitus, better controlled with current regimen of NovoLog and Lantus. 5. Acute pancreatitis with necrosis repeat CT scan in 4-5 weeks per recommendations. Con tinue to advance diet as tolerated. 6. Psychiatric disorder. Continue psych medication. 7. Encephalopathy, improved from admission. 8. Renal: Monitor kidney function. 9. Anemia. May consider transfusion in the setting of shortness of breath followed by Gerardo. 10. Left head wound, followup with neurosurgery and plastics. We will follow. Dictated By: DOMINGO GILMORE/DAVIE Conf#: [id number] DID#: [id number]
--- NOTE | 2017-05-15 16:15 | PN ---
Date/Time of Note Date/Time of Note DATE: 05/15/17 TIME: 16:14 Assessment/Plan Lines/Catheters IV Catheter Type (from Nrs): PICC Line High in Place (from Nrs): Yes Assessment/Plan Assessment/Plan [facility] Progress Note Date of Service: 05/15/2017 Location of Service: Tele 5th floor Today's Assessment & Plan: Overall stable with continued improvement. Pancreatitis seems to be improving. Abdomen remains benign. No indications of major postoperative complications or wound problems. No indication for acute surgical intervention. Previous assessment that applies today: A very-pleasant but unfortunate 67-year-old gentleman with multiple comorbidities including DM2 and prior CVA among others (please see below), presenting with acute pancreatitis complicated by necrosis but without obvious evidence of infected necrosis. Etiology of pancreatitis is likely gallstone related. Condition is tenuous and prognosis is guarded given his multiple comorbidities, including malnutrition, DM2, CVA, renal insufficiency, institutionalized status, amputation, etc. With above assessment, I've recommended the followin. Keep in-house 2. Advance diet slowly to low fat regular over the course of the next few days with amylase checks 3. Consider lowering intravenous fluids rate 4. Consider discontinuing antimicrobials (elevated WBC likely due to inflammatory response of the pancreatitis) 5. Strict I's and O's 6. Labs in a.m. 7. Long-term plan would be inpatient or outpatient lap joel to help prevent future episodes 8. Please avoid contrast in axial images since likely will not blade changer 9. Please include me in all major decisions, specially decisions to scan the patient or to intervene with IR (very important to maintain multidisciplinary care for maximum value) 10. Consider involving PT/OT Thank you very much for having me involved in the care of this very pleasant patient and I'm certain wonderful family. If you have any questions, please feel free to contact me at [phone]. Nature of presenting problem: High severity Please note that, given the extensive number of diagnoses or management options , the extensive amount and/or complexity of data needed to be reviewed, and high risk of complications and/or morbidity or mortality, this qualifies as high complexity type of decision-making. Disclaimers: 1. Inadvertent spelling and grammatical errors are likely due to electronic health record (EHR)/dictation software used and do not reflect on the quality of delivered patient care. 2. The electronic timestamp recorded on this note does not necessarily reflect the actual date and time of the visit or the service. 3. Portions of this note may have been created through electronic templates and computer algorithms that might bring in information either from the system or from other physicians and providers. Please note that such information may or may not contain errors, the occurrence of which are outside of my control. In general (but not always) this happens either in the beginning or at the end of the note. The portion of the note that I have created are generally done in 1 continuous block of text, flanked at the beginning and at the end by " ", and entered into one field in the EHR. 4. There may be other unanticipated errors in the note that are outside of my control. I can only attest to the portions of the note that I have created. Updated clinical summary: A very-pleasant but unfortunate 67-year-old gentleman with multiple comorbidities including DM2 and prior CVA among others (please see below), presenting with acute pancreatitis complicated by necrosis but without obvious evidence of infected necrosis. Etiology of pancreatitis is likely gallstone related. Comorbidities: 1. BMI 29 2. Diabetes mellitus, complicated by vascular disease (s/p R BKA) 3. CVA with right-sided weakness 4. Dyslipidemia 5. Seizure disorder 6. Bipolar disorder 7. History of CKD 8. Hypertension 9. Malnutrition (Albumin 2.3 [facility] 05/10/17) 10. Expressive aphasia 11. Depression 12. Left scalp wound 13. Meningioma resection 2016 (Dr. Christian) 14. Rehab patient ([facility]) Subjective: No major events or complaints; reported no abd pain and under control with medications; reports being hungry; no n/v/d; no sob or cp; + bowel activity; + flatus; + BM and normal;- activity Objective: Vitals: See below Exam: GENERAL: On exam, the patient was laying in bed and appeared to be comfortable and in no acute distress. ABDOMEN: Soft, nontender and nondistended. There are no peritoneal signs or guarding. SKIN: Skin appears to be pink and feels warm to touch. NEUROLOGIC: Patient is awake, alert and followed commands appropriately. Exam/Review of Systems Vital Signs Vitals Vital Signs Date Time Temp Pulse Resp B/P Pulse Ox O2 Delivery O2 Flow Rate FiO2 05/15/17 14:59 98.4 77 19 152/77 95 05/15/17 13:10 5.0 05/15/17 13:10 Nasal Cannula Intake and Output 05/14/17 05/14/17 05/15/17 15:00 23:00 07:00 Intake Total 1200 ml 350 ml Output Total 1500 ml 2000 ml Balance -300 ml -1650 ml Results Result Diagram: 05/15/17 0721 05/15/17 0721 CARA ROY M.D. May 15, 2017 16:15
--- NOTE | 2017-05-15 16:40 | PN ---
Date/Time of Note Date/Time of Note DATE: 05/15/17 TIME: 16:34 Assessment/Plan Lines/Catheters IV Catheter Type (from Nrs): PICC Line High in Place (from Nrs): Yes Assessment/Plan Chief Complaint/Hosp Course 1. Abdominal pain 2nd pancreatitis with ileus. Improving leukocytosis with pancreatic necrosis. No large body of fluid collections. HBS input appreciated ; resolved -pain management -continue to monitor -no abx per HBS -close monitoring 2. Sepsis with lactic acidosis; +Urine cx, ? other. Leukocytosis normalized -supportive -as above 3. BMI 29 -eventual diet/exercise optimization 4. ARF: increasing uop today, cr much improved -judicious fluids -avoid nephrotoxic meds 5. Uncontrolled Diabetes: blood sugar labile -optimize sugar control -eventual diet optimization 6. Constipation/Ileus: + bowel function; -optimize bowel regimen eventually 7. Electrolyte imbalance -optimize lytes 8. Hypocalcemia with hypoalbuminemia -optimize nutrition Thank you. Patient seen and examined in collaboration with Dr. Jerome Marie. Problems: Subjective 24 Hr Interval Summary Feels well. On nasal cannula. Appears comfortable. No sob, congested cough, n/v/ d/dysuria, bustillo, dizziness, cp, palpitations, pain. Exam/Review of Systems Vital Signs Vitals Vital Signs Date Time Temp Pulse Resp B/P Pulse Ox O2 Delivery O2 Flow Rate FiO2 05/15/17 14:59 98.4 77 19 152/77 95 05/15/17 13:10 5.0 05/15/17 13:10 Nasal Cannula Intake and Output 05/14/17 05/14/17 05/15/17 15:00 23:00 07:00 Intake Total 1200 ml 350 ml Output Total 1500 ml 2000 ml Balance -300 ml -1650 ml Exam Free Text/Dictation Constitutional: alert, no distress, oriented, improved energy Psych: min anxiety Head: atraumatic, normocephalic, other (left head wound (shunt)covered, no drainage) Eyes: nl lids, nl sclera ENMT: mucosa pink and moist, nl nasal mucosa & septum Neck: non-tender, no jvd, supple Respiratory: normal resp effort, no wheezing Cardiovascular: s1s2 Gastrointestinal: softer, non distended, non tender, umbilical hernia, no skin discoloration. No rebound or guarding Musculoskeletal: Right aka, stump clean. Moves extremities. No edema Neurological: nl mental status, delayed speech Lymphatics: No cervical or inguinal LNs Results Result Diagram: 05/15/17 0721 05/15/17 0721 JEB LIRIANO NP May 15, 2017 16:40
[2017-05-15] MEDS: HYDROmorphONE 1 MG/ML SYG IV PRN (20:40)
--- NOTE | 2017-05-15 22:25 | CONS ---
Date/Time of Note Date/Time of Note DATE: 05/15/17 TIME: 22:24 Consult Date/Type/Reason Admit Date/Time May 02, 2017 at 14:03 Initial Consult Date 05/03/17 Type of Consultation: ID Ordering Provider: BRYAN MINOR DO Objective Vital Signs Date Time Temp Pulse Resp B/P Pulse Ox O2 Delivery O2 Flow Rate FiO2 05/15/17 22:17 5.0 05/15/17 20:00 82 05/15/17 19:57 98.1 19 141/82 97 05/15/17 13:10 Nasal Cannula Intake and Output 05/14/17 05/14/17 05/15/17 15:00 23:00 07:00 Intake Total 1200 ml 350 ml Output Total 1500 ml 2000 ml Balance -300 ml -1650 ml Results/Medications Result Diagram: 05/15/1772005/15/1721 Results 24 hrs Laboratory Tests Test 05/15/17 07:21 05/15/17 07:54 05/15/17 12:01 05/15/17 17:51 White Blood Count 10.5 # Red Blood Count 2.50 L Hemoglobin 7.7 L Hematocrit 23.6 L Mean Corpuscular Volume 94.4 Mean Corpuscular Hemoglobin 30.8 Mean Corpuscular Hemoglobin Concent 32.6 Red Cell Distribution Width 13.7 Platelet Count 257 Mean Platelet Volume 11.2 H Neutrophils % 79.0 H Lymphocytes % 10.4 L Monocytes % 7.4 Eosinophils % 1.8 Basophils % 0.2 Nucleated Red Blood Cells % 0.0 Neutrophils # 8.3 H Lymphocytes # 1.1 Monocytes # 0.8 Eosinophils # 0.2 Basophils # 0.0 Nucleated Red Blood Cells # 0.0 Sodium Level 143 Potassium Level 3.6 Chloride Level 108 Carbon Dioxide Level 27 Anion Gap 12 Blood Urea Nitrogen 22 H Creatinine 1.61 H Glucose Level 109 # Calcium Level 8.2 L Phosphorus Level 3.7 Magnesium Level 1.8 Total Bilirubin 0.5 Direct Bilirubin 0.00 Indirect Bilirubin 0.5 Aspartate Amino Transf (AST/SGOT) 19 Alanine Aminotransferase (ALT/SGPT) 32 Alkaline Phosphatase 137 H Total Protein 5.2 L Albumin 2.2 L Globulin 3.00 Albumin/Globulin Ratio 0.73 Lipase 23 Bedside Glucose 129 154 231 H Test 05/15/17 20:38 Bedside Glucose 171 Medications Current Medications Ondansetron HCl (Zofran Inj) 4 mg Q6H PRN IV NAUSEA AND/OR VOMITING Last administered on 05/09/17 12:58; Admin Dose 4 MG; Start 05/02/17 at 19:00 Lorazepam (Ativan) 0.5 mg Q2H PRN IV ANXIETY Last administered on 05/15/17 00 :46; Admin Dose 0.5 MG; Start 05/02/17 at 19:00 Hydromorphone HCl (Dilaudid) 1 mg Q4H PRN IV PAIN LEVEL 7-10 Last administered on 05/15/17 20:40; Admin Dose 1 MG; Start 05/02/17 at 23:00 Miscellaneous Information 1 ea NOTE XX ; Start 05/03/17 at 14:00 Glucose (Glutose) 15 gm Q15M PRN PO DECREASED GLUCOSE; Start 05/03/17 at 14:00 Glucose (Glutose) 22.5 gm Q15M PRN PO DECREASED GLUCOSE; Start 05/03/17 at 14: 00 Dextrose (D50w Syringe) 25 ml Q15M PRN IV DECREASED GLUCOSE Last administered on 05/11/17 17:25; Admin Dose 25 ML; Start 05/03/17 at 14:00 Dextrose (D50w Syringe) 50 ml Q15M PRN IV DECREASED GLUCOSE; Start 05/03/17 at 14:00 Glucagon (Glucagen) 1 mg Q15M PRN IM DECREASED GLUCOSE; Start 05/03/17 at 14:00 Glucose (Glutose) 15 gm Q15M PRN BUCCAL DECREASED GLUCOSE; Start 05/03/17 at 14 :00 Bisacodyl (Dulcolax Supp) 10 mg DAILY PRN [place] CONSTIPATION Last administered on 05/04/17 17:20; Admin Dose 10 MG; Start 05/03/17 at 17:00 Miscellaneous Information (Pending [facility] Order For Wound Care) This patient bustillo... PRN PRN XX WOUND CARE; Start 05/03/17 at 19:00 Olanzapine (Zyprexa) 2.5 mg BID PO Last administered on 05/15/17 20:31; Admin Dose 2.5 MG; Start 05/06/17 at 21:00 Pantoprazole (Protonix Tab) 40 mg DAILY@06 PO Last administered on 05/15/17 06:42; Admin Dose 40 MG; Start 05/07/17 at 06:00 Metoprolol Tartrate 50 mg 50 mg Q6 PO Last administered on 05/15/17 17:52; Admin Dose 50 MG; Start 05/07/17 at 12:00 Fluconazole/ Sodium Chloride 50 ml @ 50 mls/hr Q24H IVPB Last administered on 05/15/17 13:36; Admin Dose 50 MLS/HR; Start 05/08/17 at 13:30 Meropenem/Sodium Chloride (Merrem 1 Gm/50 ml (Pmx)) 50 ml @ 100 mls/hr Q12 IVPB Last administered on 05/15/17 20:31; Admin Dose 100 MLS/HR; Start 05/09 at 11:30 Nystatin (Nystatin Powder) 1 applic BID TOP Last administered on 05/15/17 20: 32; Admin Dose 1 APPLIC; Start 05/10/17 at 10:00 Insulin Glargine (Lantus) 24 unit DAILY@08 SC Last administered on 05/15/17 08:36; Admin Dose 24 UNIT; Start 05/14/17 at 08:00 Hydralazine HCl (Apresoline) 10 mg Q4H PRN IV ELEVATED SYSTOLIC BP Last administered on 05/14/17 00:53; Admin Dose 10 MG; Start 05/14/17 at 01:00 Assessment/Plan Chief Complaint/Hosp Course SUBJECTIVE: No acute events. Awake, looks comfortable. No fevers, no vomiting or diarrhea. INDWELLINGS: The patient has High, PICC line. ANTIMICROBIALS: 2. Meropenem. 3. Fluconazole. PHYSICAL EXAMINATION: GENERAL: This is an obese, well-developed elderly man who is in no distress. HEENT: Head atraumatic, normocephalic. Sclerae anicteric. Buccal mucosa dry. NECK: Supple. CHEST: Rise symmetrical. Breath sounds diminished to bases. HEART: S1, S2. ABDOMEN: Soft, bowel tones present. EXTREMITIES: Without cyanosis. ASSESSMENT: 1. Resolving sepsis status post shock. 2. Acute necrotizing pancreatitis. 3. Diabetes. 4. Peripheral vascular disease, history of right below knee amputation. 5. History of meningioma status post craniotomy with left occipital wound culture previously grew MRSA, current been negative. 6. Acute on chronic kidney disease. 7. Status post acute encephalopathy. PLAN: Continues to improve, wbc tracing down, will dc abx and observe, f/u surgical rec-s [facility] staff Problems: JOHNNIE BARCLAY NP May 15, 2017 22:25
--- NOTE | 2017-05-15 23:24 | RADRPT ---
PROCEDURE: XR Chest. CLINICAL INDICATION: Shortness of breath. TECHNIQUE: Single frontal view. COMPARISON: 05/13/2017. FINDINGS: The left arm PICC line tip is in the cavoatrial junction region. There is mild pulmonary edema, unch anged. Mild atelectasis at the lung bases is also unchanged. The lungs are otherwise clear. The heart is mildly enlarged. There is no pleural effusion. There is no pneumothorax. IMPRESSION: 1. Left arm PICC line in satisfactory position. 2. Unchanged mild pulmonary edema and bibasilar atelectasis. 3. Cardiomegaly. RPTAT: QQ .Ric Walker MD, MD Date Time Electronically viewed and signed by .Ric Walker MD, MD on 05/15/2017 23:24 .R/
[2017-05-16] VITALS (12 sets, daily range): BP systolic 116–172; BP diastolic 66–87; PULSE 74–100; RESP 16–23
[2017-05-16] MEDS: LORAZEPAM 2 MG INJ IV PRN (00:17)
[2017-05-16] MEDS: METOPROLOL 25 MG TAB PO SCH ×4 (00:18→17:34)
[2017-05-16] MEDS: PANTOPRAZOLE (EC) 40 MG TAB PO SCH (05:23)
[2017-05-16 06:23] LABS: BASOPHILS % 0.2 % (0.0-2.0); EOSINOPHILS # 0.2 10^3/ul (0.0-0.5); EOSINOPHILS % 2.1 % (0.0-7.0); HEMATOCRIT 23.4 % (42.0-52.0); HEMOGLOBIN 7.6 g/dl (14.0-18.0); LYMPHOCYTES # 0.8 10^3/ul (0.8-2.9); LYMPHOCYTES % 8.7 % (15.0-51.0); MEAN CORPUSCULAR HGB CONC 32.5 g/dl (32.0-37.0); MEAN CORPUSCULAR VOLUME 92.5 fl (82.0-101.0); MEAN PLATELET VOLUME 10.6 fl (7.4-10.4); MONOCYTE # 0.6 10^3/ul (0.3-0.9); MONOCYTES % 6.5 % (0.0-11.0); NEUTROPHIL # 7.9 10^3/ul (1.6-7.5); NEUTROPHILS % 80.9 % (39.0-77.0); PLATELET COUNT 252 10^3/UL (140-415); RED BLOOD COUNT 2.53 10^6/ul (4.70-6.10); RED CELL DISTRIBUTION WIDTH 13.8 % (11.5-14.5); WHITE BLOOD COUNT 9.7 10^3/ul (4.8-10.8)
[2017-05-16 06:47] LABS: CALCIUM 8.5 mg/dl (8.4-10.2); CREATININE 1.7 mg/dl (0.61-1.24); POTASSIUM 3.7 mmol/L (3.5-5.1)
[2017-05-16 07:20] LABS: MAGNESIUM 1.6 mg/dl (1.7-2.5); PHOSPHORUS 4.4 mg/dl (2.5-4.9)
[2017-05-16] MEDS: INSULIN ASPART [NOVOLOG] 3 ML PEN SC SCH ×7 (07:25→21:00)
[2017-05-16] MEDS: BALSAM PERU/CASTOR OIL 60 GM TUBE TOP SCH ×2 (08:42→21:00)
[2017-05-16] MEDS: NYSTATIN 30 GM POWDER BTL TOP SCH ×2 (08:42→21:00)
[2017-05-16] MEDS: OLANZAPINE 2.5 MG TAB PO SCH ×2 (08:42→21:00)
[2017-05-16] MEDS: INSULIN GLARGINE [LANtus] 3 ML PEN SC SCH (08:44)
--- NOTE | 2017-05-16 09:26 | PN ---
DATE: 05/16/2017 SUBJECTIVE: The patient is stable. No events overnight. No fevers, chills, nausea, vomiting. OBJECTIVE: VITAL SIGNS: Blood pressure is 143/81, temperature 98.2, pulse 78, respiration 18. HEENT: Head is normocephalic. NECK: Supple. HEART: Regular rate. LUNGS: Show diminished breath sounds at base. ABDOMEN: Soft, nontender to palpation. No rebound or guarding. EXTREMITIES: Negative for clubbing, cyanosis, edema. DERMATOLOGIC: No rashes. MUSCULOSKELETAL: No joint effusions. NEUROLOGIC: No change in exam. MEDICATIONS: The patient's medications have been reviewed. LABORATORY DATA: Shows sodium 143, potassium 3.7, chloride 110, BUN 22, creatinine 1.70, white coun t 9.7, hemoglobin 10.6, hematocrit 33.4, platelet count 242. ASSESSMENT AND PLAN: 1. Nonoliguric acute kidney injury with unknown baseline creatinine. Etiology of acute kidney inju ry is secondary to acute tubular necrosis. Renal function has improved with IV hydration. The shara ent's creatinine has been rising the last 48 hours. It could be stabilizing around new baseline. A t this point, continue current treatment plan, supportive care, renally dose all meds. 2. Hypomagnesemia. Continue to monitor and replete. 3. Severe sepsis status post shock, clinically improving. Continue current antibiotic regimen. 4. Pancreatitis. The patient is improving. Continue to monitor. 5. Diabetes. Continue Accu-Cheks, insulin sliding scale. 6. Anemia. Monitor hemoglobin and hematocrit levels. Consider blood transfusion. 7. Acute encephalopathy, etiology toxic metabolic. Continue to monitor. 8. Diabetes. Continue Accu-Cheks, insulin sliding scale. Dictated By: GEN VALENZUELA/DAVIE Conf#: [id number] DID#: [id number]
--- NOTE | 2017-05-16 12:52 | CONS ---
Date/Time of Note Date/Time of Note DATE: 05/16/17 TIME: 12:51 Consult Date/Type/Reason Admit Date/Time May 02, 2017 at 14:03 Initial Consult Date 05/03/17 Type of Consultation: ID Ordering Provider: DOMINGO ARELLANO MD Objective Vital Signs Date Time Temp Pulse Resp B/P Pulse Ox O2 Delivery O2 Flow Rate FiO2 05/16/17 12:11 100 05/16/17 11:09 97.7 23 135/85 95 05/16/17 01:51 5.0 05/15/17 20:00 Nasal Cannula Intake and Output 05/15/17 05/15/17 05/16/17 15:00 23:00 07:00 Intake Total 1000 ml 400 ml Output Total 1000 ml 600 ml Balance 0 ml -200 ml Results/Medications Result Diagram: 05/16/17 0600 05/16/17 0600 Results 24 hrs Laboratory Tests Test 05/15/17 17:51 05/15/17 20:38 05/16/17 06:00 05/16/17 06:01 Bedside Glucose 231 H 171 White Blood Count 9.7 Red Blood Count 2.53 L Hemoglobin 7.6 L Hematocrit 23.4 L Mean Corpuscular Volume 92.5 Mean Corpuscular Hemoglobin 30.0 Mean Corpuscular Hemoglobin Concent 32.5 Red Cell Distribution Width 13.8 Platelet Count 252 Mean Platelet Volume 10.6 H Neutrophils % 80.9 H Lymphocytes % 8.7 L Monocytes % 6.5 Eosinophils % 2.1 Basophils % 0.2 Nucleated Red Blood Cells % 0.0 Neutrophils # 7.9 H Lymphocytes # 0.8 Monocytes # 0.6 Eosinophils # 0.2 Basophils # 0.0 Nucleated Red Blood Cells # 0.0 Sodium Level 143 Potassium Level 3.7 Chloride Level 110 Carbon Dioxide Level 27 Anion Gap 10 Blood Urea Nitrogen 22 H Creatinine 1.70 H Glucose Level 97 Calcium Level 8.5 Phosphorus Level 4.4 Magnesium Level 1.6 L Test 05/16/17 07:55 05/16/17 11:39 Bedside Glucose 118 223 H Medications Current Medications Ondansetron HCl (Zofran Inj) 4 mg Q6H PRN IV NAUSEA AND/OR VOMITING Last administered on 05/09/17t 12:58; Admin Dose 4 MG; Start 05/02/17 at 19:00 Lorazepam (Ativan) 0.5 mg Q2H PRN IV ANXIETY Last administered on 05/16/17 00 :17; Admin Dose 0.5 MG; Start 05/02/17 at 19:00 Hydromorphone HCl (Dilaudid) 1 mg Q4H PRN IV PAIN LEVEL 7-10 Last administered on 05/15/17 20:40; Admin Dose 1 MG; Start 05/02/17 at 23:00 Miscellaneous Information 1 ea NOTE XX ; Start 05/03/17 at 14:00 Glucose (Glutose) 15 gm Q15M PRN PO DECREASED GLUCOSE; Start 05/03/17 at 14:00 Glucose (Glutose) 22.5 gm Q15M PRN PO DECREASED GLUCOSE; Start 05/03/17 at 14: 00 Dextrose (D50w Syringe) 25 ml Q15M PRN IV DECREASED GLUCOSE Last administered on 05/11/17 17:25; Admin Dose 25 ML; Start 05/03/17 at 14:00 Dextrose (D50w Syringe) 50 ml Q15M PRN IV DECREASED GLUCOSE; Start 05/03/17 at 14:00 Glucagon (Glucagen) 1 mg Q15M PRN IM DECREASED GLUCOSE; Start 05/03/17 at 14:00 Glucose (Glutose) 15 gm Q15M PRN BUCCAL DECREASED GLUCOSE; Start 05/03/17 at 14 :00 Bisacodyl (Dulcolax Supp) 10 mg DAILY PRN [place] CONSTIPATION Last administered on 05/04/17 17:20; Admin Dose 10 MG; Start 05/03/17 at 17:00 Miscellaneous Information (Pending [facility] Order For Wound Care) This patient bustillo... PRN PRN XX WOUND CARE; Start 05/03/17 at 19:00 Olanzapine (Zyprexa) 2.5 mg BID PO Last administered on 05/16/17 08:42; Admin Dose 2.5 MG; Start 05/06/17 at 21:00 Pantoprazole (Protonix Tab) 40 mg DAILY@06 PO Last administered on 05/16/17 05:23; Admin Dose 40 MG; Start 05/07/17 at 06:00 Metoprolol Tartrate (Lopressor) 50 mg Q6 PO Last administered on 05/16/17 11: 46; Admin Dose 50 MG; Start 05/07/17 at 12:00 Nystatin (Nystatin Powder) 1 applic BID TOP Last administered on 05/16/17 08: 42; Admin Dose 1 APPLIC; Start 05/10/17 at 10:00 Insulin Glargine (Lantus) 24 unit DAILY@08 SC Last administered on 05/16/17 08:44; Admin Dose 24 UNIT; Start 05/14/17 at 08:00 Hydralazine HCl (Apresoline) 10 mg Q4H PRN IV ELEVATED SYSTOLIC BP Last administered on 05/14/17 00:53; Admin Dose 10 MG; Start 05/14/17 at 01:00 Assessment/Plan Chief Complaint/Hosp Course SUBJECTIVE: No acute events. Awake, looks comfortable. No fevers, tolerates diet. INDWELLINGS: The patient has High, PICC line. ANTIMICROBIALS: none PHYSICAL EXAMINATION: GENERAL: This is an obese, well-developed elderly man who is in no distress. HEENT: Head atraumatic, normocephalic. Sclerae anicteric. Buccal mucosa dry. NECK: Supple. CHEST: Rise symmetrical. Breath sounds diminished to bases. HEART: S1, S2. ABDOMEN: Soft, bowel tones present. EXTREMITIES: Without cyanosis. ASSESSMENT: 1. Resolving sepsis status post shock. 2. Acute necrotizing pancreatitis. 3. Diabetes. 4. Peripheral vascular disease, history of right below knee amputation. 5. History of meningioma status post craniotomy with left occipital wound culture previously grew MRSA, current been negative. 6. Acute on chronic kidney disease. 7. Status post acute encephalopathy. PLAN: Remains stable, abx dc'd, continue present care, f/u surgical rec-s [facility] staff Problems: JOHNNIE BARCLAY NP May 16, 2017 12:52
[2017-05-16] MEDS ORDERED: MAGNESIUM SULFATE 2 GM/50 ML 50 ML IVPB ONE (13:30)
[2017-05-16] MEDS: SENNA TAB PO SCH (14:00)
[2017-05-16] MEDS: DOCUSATE SODIUM 100 MG CAP PO SCH ×2 (14:00→21:00)
[2017-05-16] MEDS ORDERED: ZOLPIDEM 5 MG TAB PO PRN (14:00)
--- NOTE | 2017-05-16 14:38 | CONS ---
Date/Time of Note Date/Time of Note DATE: 05/16/17 TIME: 14:37 Consult Date/Type/Reason Admit Date/Time May 02, 2017 at 14:03 Initial Consult Date 05/03/17 Type of Consultation: cardiology Ordering Provider: DOMINGO VINCENT MD Subjective CARDIOLOGY FOLLOW UP NOTE: S: d/w staff and rhythm was reviewed. pt remains in NSR . no afib seen BP has been well controlled now. he denies abdominal pain to me. he denies any cp or sob to me. O: General: in no distress HEENT: NC/AT. pupils are equal. round. NECK: NO JVD. no stridor. CV: tachycardic. . systolic murmur; no gallop or rubs. PULM: no wheezing or rhonchi. GI: mild tenderness. no rebound. no guarding Extremity: s/p R LE amputation. neuro: awake and alert. with right sided weakness Psych: calm and pleasant rectal: deferred : normal male ECHO Personally reviewed: 1. Hyperdynamic left ventricular systolic function. Normal left ventricular cavity size. Mild concentric left ventricular hypertrophy. Ejection fraction is visually estimated at 70 %. Abnormal Diastolic Function. 2. The left atrium is normal in size. 3. Mild mitral leaflet calcification. Mild mitral annular calcification. Trace mitral regurgitation. 4. No significant aortic stenosis or insufficiency. Aortic cusps appear mildly calcified. Non coronary cusp appears moderately calcified. 5. Normal appearance of the tricuspid valve. Estimated peak PA systolic pressure 56 mmHg. There is mild tricuspid regurgitation. 6. The IVC is not well visualized. Objective Vital Signs Date Time Temp Pulse Resp B/P Pulse Ox O2 Delivery O2 Flow Rate FiO2 05/16/17 12:11 100 05/16/17 11:09 97.7 23 135/85 95 05/16/17 07:50 Nasal Cannula 2.0 Intake and Output 05/15/17 05/15/17 05/16/17 14:59 22:59 06:59 Intake Total 1000 ml 400 ml Output Total 1000 ml 600 ml Balance 0 ml -200 ml Results/Medications Result Diagram: 05/16/17 0600 05/16/17 0600 Results 24 hrs Laboratory Tests Test 05/15/17 17:51 05/15/17 20:38 05/16/17 06:00 05/16/17 06:01 Bedside Glucose 231 H 171 White Blood Count 9.7 Red Blood Count 2.53 L Hemoglobin 7.6 L Hematocrit 23.4 L Mean Corpuscular Volume 92.5 Mean Corpuscular Hemoglobin 30.0 Mean Corpuscular Hemoglobin Concent 32.5 Red Cell Distribution Width 13.8 Platelet Count 252 Mean Platelet Volume 10.6 H Neutrophils % 80.9 H Lymphocytes % 8.7 L Monocytes % 6.5 Eosinophils % 2.1 Basophils % 0.2 Nucleated Red Blood Cells % 0.0 Neutrophils # 7.9 H Lymphocytes # 0.8 Monocytes # 0.6 Eosinophils # 0.2 Basophils # 0.0 Nucleated Red Blood Cells # 0.0 Sodium Level 143 Potassium Level 3.7 Chloride Level 110 Carbon Dioxide Level 27 Anion Gap 10 Blood Urea Nitrogen 22 H Creatinine 1.70 H Glucose Level 97 Calcium Level 8.5 Phosphorus Level 4.4 Magnesium Level 1.6 L Test 05/16/17 07:55 05/16/17 11:39 Bedside Glucose 118 223 H Medications Current Medications Ondansetron HCl (Zofran Inj) 4 mg Q6H PRN IV NAUSEA AND/OR VOMITING Last administered on 05/09/17 12:58; Admin Dose 4 MG; Start 05/02/17 at 19:00 Lorazepam (Ativan) 0.5 mg Q2H PRN IV ANXIETY Last administered on 05/16/17 00 :17; Admin Dose 0.5 MG; Start 05/02/17 at 19:00 Hydromorphone HCl (Dilaudid) 1 mg Q4H PRN IV PAIN LEVEL 7-10 Last administered on 05/15/17 20:40; Admin Dose 1 MG; Start 05/02/17 at 23:00 Miscellaneous Information 1 ea NOTE XX ; Start 05/03/17 at 14:00 Glucose (Glutose) 15 gm Q15M PRN PO DECREASED GLUCOSE; Start 05/03/17 at 14:00 Glucose (Glutose) 22.5 gm Q15M PRN PO DECREASED GLUCOSE; Start 05/03/17 at 14: 00 Dextrose (D50w Syringe) 25 ml Q15M PRN IV DECREASED GLUCOSE Last administered on 05/11/17 17:25; Admin Dose 25 ML; Start 05/03/17 at 14:00 Dextrose (D50w Syringe) 50 ml Q15M PRN IV DECREASED GLUCOSE; Start 05/03/17 at 14:00 Glucagon (Glucagen) 1 mg Q15M PRN IM DECREASED GLUCOSE; Start 05/03/17 at 14:00 Glucose (Glutose) 15 gm Q15M PRN BUCCAL DECREASED GLUCOSE; Start 05/03/17 at 14 :00 Bisacodyl (Dulcolax Supp) 10 mg DAILY PRN [place] CONSTIPATION Last administered on 05/04/17 17:20; Admin Dose 10 MG; Start 05/03/17 at 17:00 Miscellaneous Information (Pending Santyl Order For Wound Care) This patient bustillo... PRN PRN XX WOUND CARE; Start 05/03/17 at 19:00 Olanzapine (Zyprexa) 2.5 mg BID PO Last administered on 05/16/17 08:42; Admin Dose 2.5 MG; Start 05/06/17 at 21:00 Pantoprazole (Protonix Tab) 40 mg DAILY@06 PO Last administered on 05/16/17 05:23; Admin Dose 40 MG; Start 05/07/17 at 06:00 Metoprolol Tartrate (Lopressor) 50 mg Q6 PO Last administered on 05/16/17 11: 46; Admin Dose 50 MG; Start 05/07/17 at 12:00 Nystatin (Nystatin Powder) 1 applic BID TOP Last administered on 05/16/17 08: 42; Admin Dose 1 APPLIC; Start 05/10/17 at 10:00 Insulin Glargine (Lantus) 24 unit DAILY@08 SC Last administered on 05/16/17 08:44; Admin Dose 24 UNIT; Start 05/14/17 at 08:00 Hydralazine HCl 10 mg 10 mg Q4H PRN IV ELEVATED SYSTOLIC BP Last administered on 05/14/17 00:53; Admin Dose 10 MG; Start 05/14/17 at 01:00 Magnesium Sulfate (Magnesium Sulfate 2 Gm/50 ml) 50 ml @ 25 mls/hr ONCE ONCE IVPB Last administered on 05/16/17 14:00; Admin Dose 25 MLS/HR; Start at 13:30; Stop 05/16/17 at 15:29 Docusate Sodium (Colace) 200 mg BID PO Last administered on 05/16/17 14:00; Admin Dose 200 MG; Start 05/16/17 at 14:00 Senna (Senokot) 1 tab DAILY PO Last administered on 05/16/17t 14:00; Admin Dose 1 TAB; Start 05/16/17 at 14:00 Quetiapine Fumarate (Seroquel) 100 mg QHS PO ; Start 05/16/17 at 21:00 Zolpidem Tartrate (Ambien) 5 mg HS PRN PO INSOMNIA; Start 05/16/17 at 14:00 Assessment/Plan Chief Complaint/Hosp Course 1. Sinus tachycardia secondary to below: it has resolved now with treatment of sepsis and on betablocker 2. S/P sepsis and septic shock: BP has improved now 3. Severe pancreatitis: improved now. 4. Diabetes: will defer to IM 7. Severe metabolic acidosis: improved now 8. HX of Hypertension: under control now 9. History of dyslipidemia. 10. History of RLE amputation. 11. History of craniotomy and meningioma, status post craniotomy. 12. History of seizure disorder. 13. JESUSITA on CKD. :improving now 14. hypo Na: improved now. 15. mildly abnormal trop due to above 16. HTN RECOMMENDATIONS: Antibiotic is managed as per infectious disease and Dr. Vincent. Electrolytes will be checked periodically and adjusted. cont Insulin. will defer to IM cont metoprolol at current dose f.u with renal consultants rec. f/u surgery and GI rec THANK YOU CARMEN MELO MD [facility]. Problems: CARMEN MELO MD May 16, 2017 14:38
--- NOTE | 2017-05-16 17:22 | CONS ---
Date/Time of Note Date/Time of Note DATE: 05/16/17 TIME: 17:21 Assessment/Plan Assessment/Plan Additional Assessment/Plan Additional Assessment/Plan IMPRESSION: 1. 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 2. Diabetes mellitus. 3. Leukocytosis, which is most probably related to the necrosis in the pancreas. Resolved 4. Cerebrovascular accident. 5. Renal failure. 6. History of meningioma 7. Bipolar disorder 8. Expressive aphasia Plan Continue all supportive care Patient is off antibiotic now Consultation Date/Type/Reason Admit Date/Time May 02, 2017 at 14:03 Initial Consult Date 05/03/17 Type of Consultation: cardiology Referring Provider: DOMINGO ARELLANO MD 24 HR Interval Summary Constitutional: no complaints Exam/Review of Systems Vital Signs Vitals Vital Signs Date Time Temp Pulse Resp B/P Pulse Ox O2 Delivery O2 Flow Rate FiO2 05/16/17 16:06 79 05/16/17 15:14 98.0 16 116/66 94 05/16/17 07:50 Nasal Cannula 2.0 Intake and Output 05/15/17 05/15/17 05/16/17 15:00 23:00 07:00 Intake Total 1000 ml 400 ml Output Total 1000 ml 600 ml Balance 0 ml -200 ml Exam Constitutional: alert, oriented, well developed Psych: nl mood/affect, no complaints Head: atraumatic, normocephalic Eyes: EOMI, PERRL, nl conjunctiva, nl lids, nl sclera ENMT: nl external ears & nose, nl lips & teeth, nl nasal mucosa & septum Neck: non-tender, supple Respiratory: clear to auscultation, normal air movement Cardiovascular: nl pulses, regular rate and rhythm Gastrointestinal: nl liver, spleen, non-tender, soft Musculoskeletal: nl extremities to inspection, nl gait and stance Extremities: normal pulses Neurological: AUTO STRIPER II-XII intact, nl mental status, nl speech, nl strength Skin: nl turgor, No rash or lesions Lymph: nl lymph nodes Results Result Diagram: 05/16/17 0600 05/16/17 0600 Results 24 hrs Laboratory Tests Test 05/15/17 17:51 05/15/17 20:38 05/16/17 06:00 05/16/17 06:01 Bedside Glucose 231 H 171 White Blood Count 9.7 Red Blood Count 2.53 L Hemoglobin 7.6 L Hematocrit 23.4 L Mean Corpuscular Volume 92.5 Mean Corpuscular Hemoglobin 30.0 Mean Corpuscular Hemoglobin Concent 32.5 Red Cell Distribution Width 13.8 Platelet Count 252 Mean Platelet Volume 10.6 H Neutrophils % 80.9 H Lymphocytes % 8.7 L Monocytes % 6.5 Eosinophils % 2.1 Basophils % 0.2 Nucleated Red Blood Cells % 0.0 Neutrophils # 7.9 H Lymphocytes # 0.8 Monocytes # 0.6 Eosinophils # 0.2 Basophils # 0.0 Nucleated Red Blood Cells # 0.0 Sodium Level 143 Potassium Level 3.7 Chloride Level 110 Carbon Dioxide Level 27 Anion Gap 10 Blood Urea Nitrogen 22 H Creatinine 1.70 H Glucose Level 97 Calcium Level 8.5 Phosphorus Level 4.4 Magnesium Level 1.6 L Test 05/16/17 07:55 05/16/17 11:39 Bedside Glucose 118 223 H Medications Medications Current Medications Ondansetron HCl (Zofran Inj) 4 mg Q6H PRN IV NAUSEA AND/OR VOMITING Last administered on 05/09/17 12:58; Admin Dose 4 MG; Start 05/02/17 at 19:00 Lorazepam (Ativan) 0.5 mg Q2H PRN IV ANXIETY Last administered on 05/16/17 00 :17; Admin Dose 0.5 MG; Start 05/02/17 at 19:00 Hydromorphone HCl (Dilaudid) 1 mg Q4H PRN IV PAIN LEVEL 7-10 Last administered on 05/15/17 20:40; Admin Dose 1 MG; Start 05/02/17 at 23:00 Miscellaneous Information 1 ea NOTE XX ; Start 05/03/17 at 14:00 Glucose (Glutose) 15 gm Q15M PRN PO DECREASED GLUCOSE; Start 05/03/17 at 14:00 Glucose (Glutose) 22.5 gm Q15M PRN PO DECREASED GLUCOSE; Start 05/03/17 at 14: 00 Dextrose (D50w Syringe) 25 ml Q15M PRN IV DECREASED GLUCOSE Last administered on 05/11/17 17:25; Admin Dose 25 ML; Start 05/03/17 at 14:00 Dextrose (D50w Syringe) 50 ml Q15M PRN IV DECREASED GLUCOSE; Start 05/03/17 at 14:00 Glucagon (Glucagen) 1 mg Q15M PRN IM DECREASED GLUCOSE; Start 05/03/17 at 14:00 Glucose (Glutose) 15 gm Q15M PRN BUCCAL DECREASED GLUCOSE; Start 05/03/17 at 14 :00 Bisacodyl (Dulcolax Supp) 10 mg DAILY PRN [place] CONSTIPATION Last administered on 05/04/17 17:20; Admin Dose 10 MG; Start 05/03/17 at 17:00 Miscellaneous Information (Pending Santyl Order For Wound Care) This patient bustillo... PRN PRN XX WOUND CARE; Start 05/03/17 at 19:00 Olanzapine (Zyprexa) 2.5 mg BID PO Last administered on 05/16/17 08:42; Admin Dose 2.5 MG; Start 05/06/17 at 21:00 Pantoprazole (Protonix Tab) 40 mg DAILY@06 PO Last administered on 05/16/17 05:23; Admin Dose 40 MG; Start 05/07/17 at 06:00 Metoprolol Tartrate (Lopressor) 50 mg Q6 PO Last administered on 05/16/17 11: 46; Admin Dose 50 MG; Start 05/07/17 at 12:00 Nystatin (Nystatin Powder) 1 applic BID TOP Last administered on 05/16/17 08: 42; Admin Dose 1 APPLIC; Start 05/10/17 at 10:00 Insulin Glargine (Lantus) 24 unit DAILY@08 SC Last administered on 05/16/17 08:44; Admin Dose 24 UNIT; Start 05/14/17 at 08:00 Hydralazine HCl (Apresoline) 10 mg Q4H PRN IV ELEVATED SYSTOLIC BP Last administered on 05/14/17 00:53; Admin Dose 10 MG; Start 05/14/17 at 01:00 Docusate Sodium (Colace) 200 mg BID PO Last administered on 05/16/17 14:00; Admin Dose 200 MG; Start 05/16/17 at 14:00 Senna (Senokot) 1 tab DAILY PO Last administered on 05/16/17 14:00; Admin Dose 1 TAB; Start 05/16/17 at 14:00 Quetiapine Fumarate (Seroquel) 100 mg QHS PO ; Start 05/16/17 at 21:00 Zolpidem Tartrate (Ambien) 5 mg HS PRN PO INSOMNIA; Start 05/16/17 at 14:00 JOHNY MCCURDY MD May 16, 2017 17:22
--- NOTE | 2017-05-16 17:57 | PN ---
Date/Time of Note Date/Time of Note DATE: 05/16/17 TIME: 17:54 Assessment/Plan Lines/Catheters IV Catheter Type (from Nrs): PICC Line High in Place (from Nrs): Yes Assessment/Plan Chief Complaint/Hosp Course 1. Abdominal pain 2nd pancreatitis with ileus. Improving leukocytosis with pancreatic necrosis. No large body of fluid collections. resolved -pain management -continue to monitor -no abx per HBS -close monitoring 2. Sepsis with lactic acidosis; +Urine cx, ? other. Leukocytosis normalized -supportive -as above 3. BMI 29 -eventual diet/exercise optimization 4. ARF: increasing uop today, cr min up -judicious fluids -avoid nephrotoxic meds 5. Uncontrolled Diabetes: blood sugar labile -optimize sugar control -eventual diet optimization 6. Constipation/Ileus: + bowel function -optimize bowel regimen eventually 7. Electrolyte imbalance -optimize lytes Thank you. Patient seen and examined in collaboration with Dr. Jerome Marie. Problems: Subjective 24 Hr Interval Summary Feels well. Great appetite. +bowel function. No fevers, chills, sob, congested cough, change in tele rhythm, cp, palpitations, n/v/d/dysuria, bustillo, dizziness. Exam/Review of Systems Vital Signs Vitals Vital Signs Date Time Temp Pulse Resp B/P Pulse Ox O2 Delivery O2 Flow Rate FiO2 05/16/17 16:06 79 05/16/17 15:14 98.0 16 116/66 94 05/16/17 07:50 Nasal Cannula 2.0 Intake and Output 05/15/17 05/15/17 05/16/17 15:00 23:00 07:00 Intake Total 1000 ml 400 ml Output Total 1000 ml 600 ml Balance 0 ml -200 ml Exam Free Text/Dictation Constitutional: alert, no distress, oriented Psych: min anxiety Head: atraumatic, normocephalic, other (left head wound (shunt)covered, no drainage) Eyes: nl lids, nl sclera ENMT: mucosa pink and moist, nl nasal mucosa & septum Neck: non-tender, no jvd, supple Respiratory: normal resp effort, no wheezing Cardiovascular: s1s2 Gastrointestinal: soft, non distended, non tender, umbilical hernia, no skin discoloration. No rebound or guarding Musculoskeletal: Right aka, stump clean. Moves extremities. No edema Neurological: nl mental status, delayed speech Lymphatics: No cervical or inguinal LNs Results Result Diagram: 05/16/1759905/16/17599 JEB LIRIANO NP May 16, 2017 17:57
--- NOTE | 2017-05-16 18:58 | PN ---
Date/Time of Note Date/Time of Note DATE: 05/16/17 TIME: 10:56 Assessment/Plan Lines/Catheters IV Catheter Type (from Nrs): PICC Line High in Place (from Nrs): Yes Assessment/Plan Assessment/Plan [facility] Progress Note Date of Service: 05/16/2017 Location of Service: Tele 5th floor Today's Assessment & Plan: Overall stable. Increased abdominal pain may be due to intake of dairy products with full liquid diet. May improve with Creon. Abdomen remains benign. No indications of major postoperative complications or wound problems. No indication for acute surgical intervention. Previous assessment that applies today: A very-pleasant but unfortunate 67-year-old gentleman with multiple comorbidities including DM2 and prior CVA among others (please see below), presenting with acute pancreatitis complicated by necrosis but without obvious evidence of infected necrosis. Etiology of pancreatitis is likely gallstone related. Condition is tenuous and prognosis is guarded given his multiple comorbidities, including malnutrition, DM2, CVA, renal insufficiency, institutionalized status, amputation, etc. With above assessment, I've recommended the followin. Keep in-house 2. Advance diet slowly to low fat regular over the course of the next few days with amylase checks; no dairy products; supplement with Creon (ordered) 3. Consider lowering intravenous fluids rate 4. Agree with no antimicrobials (elevation in WBC likely due to inflammatory response of the pancreatitis) 5. Strict I's and O's 6. Labs in a.m. 7. Long-term plan would be inpatient or outpatient lap joel to help prevent future episodes 8. Please avoid contrast in axial images since likely will not change control analyst 9. Please include me in all major decisions, specially decisions to scan the patient or to intervene with IR (very important to maintain multidisciplinary care for maximum value) 10. Consider involving PT/OT Thank you very much for having me involved in the care of this very pleasant patient and I'm certain wonderful family. If you have any questions, please feel free to contact me at [phone]. Nature of presenting problem: High severity Please note that, given the extensive number of diagnoses or management options , the extensive amount and/or complexity of data needed to be reviewed, and high risk of complications and/or morbidity or mortality, this qualifies as high complexity type of decision-making. Disclaimers: 1. Inadvertent spelling and grammatical errors are likely due to electronic health record (EHR)/dictation software used and do not reflect on the quality of delivered patient care. 2. The electronic timestamp recorded on this note does not necessarily reflect the actual date and time of the visit or the service. 3. Portions of this note may have been created through electronic templates and computer algorithms that might bring in information either from the system or from other physicians and providers. Please note that such information may or may not contain errors, the occurrence of which are outside of my control. In general (but not always) this happens either in the beginning or at the end of the note. The portion of the note that I have created are generally done in 1 continuous block of text, flanked at the beginning and at the end by " ", and entered into one field in the EHR. 4. There may be other unanticipated errors in the note that are outside of my control. I can only attest to the portions of the note that I have created. Updated clinical summary: A very-pleasant but unfortunate 67-year-old gentleman with multiple comorbidities including DM2 and prior CVA among others (please see below), presenting with acute pancreatitis complicated by necrosis but without obvious evidence of infected necrosis. Etiology of pancreatitis is likely gallstone related. Comorbidities: 1. BMI 29 2. Diabetes mellitus, complicated by vascular disease (s/p R BKA) 3. CVA with right-sided weakness 4. Dyslipidemia 5. Seizure disorder 6. Bipolar disorder 7. History of CKD 8. Hypertension 9. Malnutrition (Albumin 2.3 [facility] 05/10/17) 10. Expressive aphasia 11. Depression 12. Left scalp wound 13. Meningioma resection 2016 (Dr. Christian) 14. Rehab patient ([facility]) Subjective: No major events or complaints; reported + abd pain and under control with medications; had milk with full liquid diet; no n/v/d; no sob or cp; + bowel activity; + flatus; + BM and normal;- activity Objective: Vitals: See below Exam: GENERAL: On exam, the patient was laying in bed and appeared to be comfortable and in no acute distress. ABDOMEN: Soft, nontender and nondistended. There are no peritoneal signs or guarding. SKIN: Skin appears to be pink and feels warm to touch. NEUROLOGIC: Patient is awake, alert and followed commands appropriately. Exam/Review of Systems Vital Signs Vitals Vital Signs Date Time Temp Pulse Resp B/P Pulse Ox O2 Delivery O2 Flow Rate FiO2 05/16/17 18:19 5.0 05/16/17 16:06 79 05/16/17 15:14 98.0 16 116/66 94 05/16/17 07:50 Nasal Cannula Intake and Output 05/15/17 05/15/17 05/16/17 15:00 23:00 07:00 Intake Total 1000 ml 400 ml Output Total 1000 ml 600 ml Balance 0 ml -200 ml Results Result Diagram: 05/16/17 0600 05/16/17 0600 CARA ROY M.D. May 16, 2017 18:58
[2017-05-16] MEDS: QUETIAPINE 100 MG TAB PO SCH (21:00)
[2017-05-17] VITALS (11 sets, daily range): BP systolic 131–156; BP diastolic 64–81; PULSE 74–83; RESP 18–20
[2017-05-17] MEDS: METOPROLOL 25 MG TAB PO SCH ×4 (01:27→17:26)
[2017-05-17] MEDS: PANTOPRAZOLE (EC) 40 MG TAB PO SCH (05:54)
[2017-05-17 06:56] LABS: AMYLASE < 30 U/L (11-123)
[2017-05-17 07:05] LABS: CALCIUM 8.6 mg/dl (8.4-10.2); CREATININE 1.76 mg/dl (0.61-1.24); MAGNESIUM 1.8 mg/dl (1.7-2.5); PHOSPHORUS 4.5 mg/dl (2.5-4.9); POTASSIUM 3.9 mmol/L (3.5-5.1)
[2017-05-17 07:08] LABS: BASOPHILS % 0.2 % (0.0-2.0); EOSINOPHILS # 0.1 10^3/ul (0.0-0.5); EOSINOPHILS % 1.9 % (0.0-7.0); HEMATOCRIT 22.2 % (42.0-52.0); HEMOGLOBIN 7.3 g/dl (14.0-18.0); LYMPHOCYTES # 1.4 10^3/ul (0.8-2.9); LYMPHOCYTES % 21.5 % (15.0-51.0); MEAN CORPUSCULAR HEMOGLOBIN 30.4 pg (29.0-33.0); MEAN CORPUSCULAR HGB CONC 32.9 g/dl (32.0-37.0); MEAN CORPUSCULAR VOLUME 92.5 fl (82.0-101.0); MEAN PLATELET VOLUME 10.7 fl (7.4-10.4); MONOCYTE # 0.5 10^3/ul (0.3-0.9); NEUTROPHIL # 4.2 10^3/ul (1.6-7.5); PLATELET COUNT 257 10^3/UL (140-415); RED CELL DISTRIBUTION WIDTH 13.7 % (11.5-14.5); WHITE BLOOD COUNT 6.3 10^3/ul (4.8-10.8)
[2017-05-17] MEDS: INSULIN ASPART [NOVOLOG] 3 ML PEN SC SCH ×7 (07:25→21:00)
[2017-05-17] MEDS: OLANZAPINE 2.5 MG TAB PO SCH ×2 (08:42→20:54)
[2017-05-17] MEDS: SENNA TAB PO SCH (08:42)
[2017-05-17] MEDS: DOCUSATE SODIUM 100 MG CAP PO SCH ×2 (08:42→20:54)
[2017-05-17] MEDS: CREON (24K-76K-120K) 1 CAP PO SCH ×3 (08:42→17:25)
[2017-05-17] MEDS: BALSAM PERU/CASTOR OIL 60 GM TUBE TOP SCH ×2 (08:43→21:00)
[2017-05-17] MEDS: NYSTATIN 30 GM POWDER BTL TOP SCH ×2 (08:43→21:00)
[2017-05-17] MEDS: INSULIN GLARGINE [LANtus] 3 ML PEN SC SCH (08:53)
--- NOTE | 2017-05-17 13:58 | CONS ---
Date/Time of Note Date/Time of Note DATE: 05/17/17 TIME: 13:57 Consult Date/Type/Reason Admit Date/Time May 02, 2017 at 14:03 Initial Consult Date 05/03/17 Type of Consultation: ID Ordering Provider: DOMINGO ARELLANO MD Objective Vital Signs Date Time Temp Pulse Resp B/P Pulse Ox O2 Delivery O2 Flow Rate FiO2 05/17/17 12:12 78 05/17/17 11:19 97.9 20 133/64 95 05/17/17 08:00 Nasal Cannula 2.0 Intake and Output 05/16/17 05/16/17 05/17/17 15:00 23:00 07:00 Intake Total 790 ml 650 ml Output Total 1100 ml 1000 ml Balance -310 ml -350 ml Results/Medications Result Diagram: 05/17/17 0500 05/17/17 0544 Results 24 hrs Laboratory Tests Test 05/16/17 17:32 05/16/17 21:39 05/17/17 05:00 05/17/17 05:44 Bedside Glucose 83 115 White Blood Count 6.3 # Red Blood Count 2.40 L Hemoglobin 7.3 L Hematocrit 22.2 L Mean Corpuscular Volume 92.5 Mean Corpuscular Hemoglobin 30.4 Mean Corpuscular Hemoglobin Concent 32.9 Red Cell Distribution Width 13.7 Platelet Count 257 Mean Platelet Volume 10.7 H Neutrophils % 67.0 Lymphocytes % 21.5 Monocytes % 8.0 Eosinophils % 1.9 Basophils % 0.2 Nucleated Red Blood Cells % 0.0 Neutrophils # 4.2 Lymphocytes # 1.4 Monocytes # 0.5 Eosinophils # 0.1 Basophils # 0.0 Nucleated Red Blood Cells # 0.0 Sodium Level 142 Potassium Level 3.9 Chloride Level 110 Carbon Dioxide Level 28 Anion Gap 8 Blood Urea Nitrogen 23 H Creatinine 1.76 H Glucose Level 109 Calcium Level 8.6 Phosphorus Level 4.5 Magnesium Level 1.8 Test 05/17/17 05:45 05/17/17 07:55 05/17/17 11:35 Amylase Level < 30 Lipase 27 Bedside Glucose 139 236 H Medications Current Medications Ondansetron HCl (Zofran Inj) 4 mg Q6H PRN IV NAUSEA AND/OR VOMITING Last administered on 05/09/17t 12:58; Admin Dose 4 MG; Start 05/02/17 at 19:00 Lorazepam (Ativan) 0.5 mg Q2H PRN IV ANXIETY Last administered on 05/16/17 00 :17; Admin Dose 0.5 MG; Start 05/02/17 at 19:00 Hydromorphone HCl (Dilaudid) 1 mg Q4H PRN IV PAIN LEVEL 7-10 Last administered on 05/15/17 20:40; Admin Dose 1 MG; Start 05/02/17 at 23:00 Miscellaneous Information 1 ea NOTE XX ; Start 05/03/17 at 14:00 Glucose (Glutose) 15 gm Q15M PRN PO DECREASED GLUCOSE; Start 05/03/17 at 14:00 Glucose (Glutose) 22.5 gm Q15M PRN PO DECREASED GLUCOSE; Start 05/03/17 at 14: 00 Dextrose (D50w Syringe) 25 ml Q15M PRN IV DECREASED GLUCOSE Last administered on 05/11/17 17:25; Admin Dose 25 ML; Start 05/03/17 at 14:00 Dextrose (D50w Syringe) 50 ml Q15M PRN IV DECREASED GLUCOSE; Start 05/03/17 at 14:00 Glucagon (Glucagen) 1 mg Q15M PRN IM DECREASED GLUCOSE; Start 05/03/17 at 14:00 Glucose (Glutose) 15 gm Q15M PRN BUCCAL DECREASED GLUCOSE; Start 05/03/17 at 14 :00 Bisacodyl (Dulcolax Supp) 10 mg DAILY PRN [place] CONSTIPATION Last administered on 05/04/17 17:20; Admin Dose 10 MG; Start 05/03/17 at 17:00 Miscellaneous Information (Pending [facility] Order For Wound Care) This patient bustillo... PRN PRN XX WOUND CARE; Start 05/03/17 at 19:00 Olanzapine (Zyprexa) 2.5 mg BID PO Last administered on 05/17/17 08:42; Admin Dose 2.5 MG; Start 05/06/17 at 21:00 Pantoprazole (Protonix Tab) 40 mg DAILY@06 PO Last administered on 05/17/17 05:54; Admin Dose 40 MG; Start 05/07/17 at 06:00 Metoprolol Tartrate (Lopressor) 50 mg Q6 PO Last administered on 05/17/17 11: 50; Admin Dose 50 MG; Start 05/07/17 at 12:00 Nystatin (Nystatin Powder) 1 applic BID TOP Last administered on 05/17/17 08: 43; Admin Dose 1 APPLIC; Start 05/10/17 at 10:00 Insulin Glargine (Lantus) 24 unit DAILY@08 SC Last administered on 05/17/17 08:53; Admin Dose 24 UNIT; Start 05/14/17 at 08:00 Hydralazine HCl (Apresoline) 10 mg Q4H PRN IV ELEVATED SYSTOLIC BP Last administered on 05/14/17 00:53; Admin Dose 10 MG; Start 05/14/17 at 01:00 Docusate Sodium (Colace) 200 mg BID PO Last administered on 05/17/17 08:42; Admin Dose 200 MG; Start 05/16/17 at 14:00 Senna (Senokot) 1 tab DAILY PO Last administered on 05/17/17 08:42; Admin Dose 1 TAB; Start 05/16/17 at 14:00 Quetiapine Fumarate (Seroquel) 100 mg QHS PO Last administered on 05/16/17 21 :00; Admin Dose 100 MG; Start 05/16/17 at 21:00 Zolpidem Tartrate (Ambien) 5 mg HS PRN PO INSOMNIA; Start 05/16/17 at 14:00 Assessment/Plan Chief Complaint/Hosp Course SUBJECTIVE: No acute events. Alert, feels good INDWELLINGS: The patient has High, PICC line. ANTIMICROBIALS: none PHYSICAL EXAMINATION: GENERAL: This is an obese, well-developed elderly man who is in no distress. HEENT: Head atraumatic, normocephalic. Sclerae anicteric. Buccal mucosa dry. NECK: Supple. CHEST: Rise symmetrical. Breath sounds diminished to bases. HEART: S1, S2. ABDOMEN: Soft, bowel tones present. EXTREMITIES: Without cyanosis. ASSESSMENT: 1. S/p sepsis 2. Acute necrotizing pancreatitis==> resolving. 3. Diabetes. 4. Peripheral vascular disease, history of right below knee amputation. 5. History of meningioma status post craniotomy with left occipital wound culture previously grew MRSA, current been negative. 6. Acute on chronic kidney disease. 7. Status post acute encephalopathy. PLAN: Remains stable, off abx, continue present care, f/u surgical rec-s staff Problems: JOHNNIE BARCLAY NP May 17, 2017 13:58
--- NOTE | 2017-05-17 15:14 | CONS ---
Date/Time of Note Date/Time of Note DATE: 05/17/17 TIME: 15:09 Assessment/Plan Assessment/Plan Chief Complaint/Hosp Course IMPRESSION: 1. 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 2. Diabetes mellitus. 3. Leukocytosis, which is most probably related to the necrosis in the pancreas. Resolved 4. Cerebrovascular accident. 5. Renal failure. 6. History of meningioma 7. Bipolar disorder 8. Expressive aphasia Plan 1. continue Creon 2. Advance diet per surgery 3. as patient tolerates PO and pancreatic enzyme normalized, GI ok to stop IVF if ok with primary. 4. consider lap joel to help prevent future episodes per surgery discretion 5. Consider involving PT/OT Problems: Consultation Date/Type/Reason Admit Date/Time May 02, 2017 at 14:03 Initial Consult Date 05/03/17 Type of Consultation: GI Referring Provider: DOMINGO ARELLANO MD 24 HR Interval Summary Free Text/Dictation mild epigastric pain, tolerates po, wants to go home Constitutional: improved Exam/Review of Systems Vital Signs Vitals Vital Signs Date Time Temp Pulse Resp B/P Pulse Ox O2 Delivery O2 Flow Rate FiO2 05/17/17 12:12 78 05/17/17 11:19 97.9 20 133/64 95 05/17/17 08:00 Nasal Cannula 2.0 Intake and Output 05/16/17 05/16/17 05/17/17 15:00 23:00 07:00 Intake Total 790 ml 650 ml Output Total 1100 ml 1000 ml Balance -310 ml -350 ml Exam Constitutional: alert, oriented, well developed Psych: nl mood/affect, no complaints Head: atraumatic, normocephalic Eyes: EOMI, nl conjunctiva, nl lids, nl sclera ENMT: mucosa pink and moist, nl external ears & nose, nl lips & teeth, nl nasal mucosa & septum Neck: non-tender, supple Respiratory: clear to auscultation, normal air movement Cardiovascular: nl pulses, regular rate and rhythm Gastrointestinal: bowel sounds, non-tender, soft Results Result Diagram: 05/17/17 0500 05/17/17 0544 Results 24 hrs Laboratory Tests Test 05/16/17 17:32 05/16/17 21:39 05/17/17 05:00 05/17/17 05:44 Bedside Glucose 83 115 White Blood Count 6.3 # Red Blood Count 2.40 L Hemoglobin 7.3 L Hematocrit 22.2 L Mean Corpuscular Volume 92.5 Mean Corpuscular Hemoglobin 30.4 Mean Corpuscular Hemoglobin Concent 32.9 Red Cell Distribution Width 13.7 Platelet Count 257 Mean Platelet Volume 10.7 H Neutrophils % 67.0 Lymphocytes % 21.5 Monocytes % 8.0 Eosinophils % 1.9 Basophils % 0.2 Nucleated Red Blood Cells % 0.0 Neutrophils # 4.2 Lymphocytes # 1.4 Monocytes # 0.5 Eosinophils # 0.1 Basophils # 0.0 Nucleated Red Blood Cells # 0.0 Sodium Level 142 Potassium Level 3.9 Chloride Level 110 Carbon Dioxide Level 28 Anion Gap 8 Blood Urea Nitrogen 23 H Creatinine 1.76 H Glucose Level 109 Calcium Level 8.6 Phosphorus Level 4.5 Magnesium Level 1.8 Test 05/17/17 05:45 05/17/17 07:55 05/17/17 11:35 Amylase Level < 30 Lipase 27 Bedside Glucose 139 236 H Medications Medications Current Medications Ondansetron HCl (Zofran Inj) 4 mg Q6H PRN IV NAUSEA AND/OR VOMITING Last administered on 05/09/17 12:58; Admin Dose 4 MG; Start 05/02/17 at 19:00 Lorazepam (Ativan) 0.5 mg Q2H PRN IV ANXIETY Last administered on 05/16/17 00 :17; Admin Dose 0.5 MG; Start 05/02/17 at 19:00 Hydromorphone HCl (Dilaudid) 1 mg Q4H PRN IV PAIN LEVEL 7-10 Last administered on 05/15/17 20:40; Admin Dose 1 MG; Start 05/02/17 at 23:00 Miscellaneous Information 1 ea NOTE XX ; Start 05/03/17 at 14:00 Glucose (Glutose) 15 gm Q15M PRN PO DECREASED GLUCOSE; Start 05/03/17 at 14:00 Glucose (Glutose) 22.5 gm Q15M PRN PO DECREASED GLUCOSE; Start 05/03/17 at 14: 00 Dextrose (D50w Syringe) 25 ml Q15M PRN IV DECREASED GLUCOSE Last administered on 05/11/17 17:25; Admin Dose 25 ML; Start 05/03/17 at 14:00 Dextrose (D50w Syringe) 50 ml Q15M PRN IV DECREASED GLUCOSE; Start 05/03/17 at 14:00 Glucagon (Glucagen) 1 mg Q15M PRN IM DECREASED GLUCOSE; Start 05/03/17 at 14:00 Glucose (Glutose) 15 gm Q15M PRN BUCCAL DECREASED GLUCOSE; Start 05/03/17 at 14 :00 Bisacodyl (Dulcolax Supp) 10 mg DAILY PRN [place] CONSTIPATION Last administered on 05/04/17 17:20; Admin Dose 10 MG; Start 05/03/17 at 17:00 Miscellaneous Information (Pending [facility] Order For Wound Care) This patient bustillo... PRN PRN XX WOUND CARE; Start 05/03/17 at 19:00 Olanzapine (Zyprexa) 2.5 mg BID PO Last administered on 05/17/17 08:42; Admin Dose 2.5 MG; Start 05/06/17 at 21:00 Pantoprazole (Protonix Tab) 40 mg DAILY@06 PO Last administered on 05/17/17 05:54; Admin Dose 40 MG; Start 05/07/17 at 06:00 Metoprolol Tartrate (Lopressor) 50 mg Q6 PO Last administered on 05/17/17 11: 50; Admin Dose 50 MG; Start 05/07/17 at 12:00 Nystatin (Nystatin Powder) 1 applic BID TOP Last administered on 05/17/17 08: 43; Admin Dose 1 APPLIC; Start 05/10/17 at 10:00 Insulin Glargine (Lantus) 24 unit DAILY@08 SC Last administered on 05/17/17 08:53; Admin Dose 24 UNIT; Start 05/14/17 at 08:00 Hydralazine HCl (Apresoline) 10 mg Q4H PRN IV ELEVATED SYSTOLIC BP Last administered on 05/14/17 00:53; Admin Dose 10 MG; Start 05/14/17 at 01:00 Docusate Sodium (Colace) 200 mg BID PO Last administered on 05/17/17 08:42; Admin Dose 200 MG; Start 05/16/17 at 14:00 Senna (Senokot) 1 tab DAILY PO Last administered on 05/17/17 08:42; Admin Dose 1 TAB; Start 05/16/17 at 14:00 Quetiapine Fumarate (Seroquel) 100 mg QHS PO Last administered on 05/16/17t 21 :00; Admin Dose 100 MG; Start 05/16/17 at 21:00 Zolpidem Tartrate (Ambien) 5 mg HS PRN PO INSOMNIA; Start 05/16/17 at 14:00 JATINDER NÚÑEZ MD May 17, 2017 15:14
[2017-05-17] MEDS ORDERED: SOD CHLORIDE 0.9% 250 ML IV* ONE (15:50)
[2017-05-17] MEDS ORDERED: FUROSEMIDE 20 MG INJ IV ONE (16:00)
--- NOTE | 2017-05-17 17:50 | PN ---
Date/Time of Note Date/Time of Note DATE: 05/17/17 TIME: 17:46 Assessment/Plan Lines/Catheters IV Catheter Type (from Nrs): PICC Line High in Place (from Nrs): Yes Assessment/Plan Chief Complaint/Hosp Course 1. Abdominal pain 2nd pancreatitis with ileus. Improving leukocytosis with pancreatic necrosis. No large body of fluid collections. had episode of abdominal pain, was started on creon; currently without pain, +bowel function -pain management -continue to monitor -no abx per HBS -close monitoring 2. Sepsis with lactic acidosis; +Urine cx, ? other. Leukocytosis normalized -supportive -as above 3. BMI 29 -eventual diet/exercise optimization 4. ARF: increasing uop today, cr increasing -judicious fluids -avoid nephrotoxic meds 5. Uncontrolled Diabetes: blood sugar labile -optimize sugar control -eventual diet optimization 6. Electrolyte imbalance -optimize lytes Thank you. Patient seen and examined in collaboration with Dr. Jerome Marie. Problems: Subjective 24 Hr Interval Summary Was started on creon. Patient with reported pain but none during my exam. + bowel function. No fevers, chills, sob, congested cough, n/v/d/dysuria, bustillo, dizziness, cp, palpitations. Exam/Review of Systems Vital Signs Vitals Vital Signs Date Time Temp Pulse Resp B/P Pulse Ox O2 Delivery O2 Flow Rate FiO2 05/17/17 16:02 83 05/17/17 15:18 97.7 18 131/81 94 05/17/17 08:00 Nasal Cannula 2.0 Intake and Output 05/16/17 05/16/17 05/17/17 15:00 23:00 07:00 Intake Total 790 ml 650 ml Output Total 1100 ml 1000 ml Balance -310 ml -350 ml Exam Free Text/Dictation Constitutional: alert, no distress, oriented Psych: min anxiety Head: atraumatic, normocephalic, other (left head wound (shunt)covered, no drainage) Eyes: nl lids, nl sclera ENMT: mucosa pink and moist, nl nasal mucosa & septum Neck: non-tender, no jvd, supple Respiratory: normal resp effort, no wheezing Cardiovascular: s1s2 Gastrointestinal: soft, non distended, non tender, umbilical hernia, no skin discoloration. No rebound or guarding Musculoskeletal: Right aka, stump clean. Moves extremities. No edema Neurological: nl mental status, delayed speech Lymphatics: No cervical or inguinal LNs Results Result Diagram: 05/17/17 0500 05/17/17 0544 JEB LIRIANO NP May 17, 2017 17:50
[2017-05-17] MEDS: QUETIAPINE 100 MG TAB PO SCH (20:54)
[2017-05-18] VITALS (12 sets, daily range): BP systolic 125–156; BP diastolic 66–86; PULSE 75–90; RESP 16–19
[2017-05-18] MEDS: HYDROmorphONE 1 MG/ML SYG IV PRN (02:03)
[2017-05-18] MEDS ORDERED: FUROSEMIDE 20 MG INJ IV SCH (02:12)
--- NOTE | 2017-05-18 05:54 | PN ---
DATE: 05/17/2017 SUBJECTIVE: The patient seen. The patient with no complaints. More verbal today and feeling vicente r. PHYSICAL EXAMINATION: VITAL SIGNS: Temperature 97.7, pulse 77, respirations 18, blood pressure 131/81, saturation 94% on 2 liters. GENERAL: No acute distress. The patient is pale. CARDIOVASCULAR: S1, S2, regular rate. LUNGS: Clear. ABDOMEN: Soft, nontender. EXTREMITIES: Left AKA, trace edema throughout. LABORATORY DATA: White count 6.3, hemoglobin going down to 7.3, hematocrit 22.2, platelet count 257 with normal differential. Chemistry: Sodium 142, potassium 3.9, chloride 110, bicarbonate 28, BUN is 23, creatinine 1.76, glucose of 109. Last glucose level was 236. MEDICATIONS: 1. Creon t.i.d. meals. 2. Seroquel 100 at bedtime. 3. Colace 200 b.i.d. 4. Senna 1 tab daily. 5. Ambien 5 mg at bedtime p.r.n. 6. Insulin NovoLog 6 units q. a.c. meals. 7. Insulin Lantus 24 units daily. 8. Hydralazine p.r.n. 9. b.i.d. 10. Xopenex p.r.n. 11. Lopressor 50 q.6. 12. Protonix 40 mg . 13. Zyprexa 2.5 b.i.d. 14. Hypoglycemia protocol as directed. ASSESSMENT AND PLAN: This is a 67-year-old male with history of meningioma, status post c raniotomy a year ago with left scalp wound, chronic kidney disease, right [id number] amputation; presented with sepsis, acute renal failure, respiratory failure and pancreatitis. 1. Respiratory. Stable. Continue O2 support. Last chest x-ray done on the showed unchanged mild pulmonary edema and bibasilar atelectasis. 2. Cardiovascular, stable. The patient with anemia. Will transfuse the patient 1 unit of packed r ed blood cells in anticipation for discharge soon. We will follow that with 20 IV of Lasix x1. 3. Renal insufficiency, stable at baseline. Monitor electrolytes. 4. Diabetes mellitus. Remains on NovoLog and Lantus. Glucose levels are 236, 139 and 109 this mor rosanne. We will continue the same regimen. 5. Psychiatric disorder. Actually doing better after I started him on the Seroquel at night. 6. Acute pancreatitis. Continue Creon. Repeat CT scan per gastroenterology in 1 month. 7. Encephalopathy, improved. 8. Renal. Monitor electrolytes. 9. Anemia. Will transfuse the patient in anticipation for discharge soon. His hemoglobin and fracisco tocrit are trending down. 10. Left head wound. Followup with neurosurgery. Overall clinically improving. We will follow. Dictated By: DOMINGO GILMORE/DAVIE Conf#: [id number] DID#: [id number]
[2017-05-18] MEDS: METOPROLOL 25 MG TAB PO SCH ×4 (06:34→17:36)
[2017-05-18] MEDS: PANTOPRAZOLE (EC) 40 MG TAB PO SCH ×2 (06:34→17:37)
--- NOTE | 2017-05-18 08:06 | CONS ---
Date/Time of Note Date/Time of Note DATE: 05/18/17 TIME: 08:03 Assessment/Plan Assessment/Plan Chief Complaint/Hosp Course IMPRESSION: 1. 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 2. Diabetes mellitus. 3. Leukocytosis, which is most probably related to the necrosis in the pancreas. Resolved 4. Cerebrovascular accident. 5. Anemia: h/h trending down 6. History of meningioma 7. Bipolar disorder 8. Expressive aphasia Plan 1. continue Creon 2. Advance diet per surgery 3. as patient tolerates PO and pancreatic enzyme normalized, GI ok to stop IVF if ok with primary. 4. consider lap joel to help prevent future episodes per surgery discretion 5. Consider involving PT/OT 6. as hgb trending down, will obtain stool for occult blood to r/o gib, transfuse prn hgb less than 7, increased protonix to bid dosing Problems: Consultation Date/Type/Reason Admit Date/Time May 02, 2017 at 14:03 Initial Consult Date 05/03/17 Type of Consultation: GI Referring Provider: DOMINGO ARELLANO MD 24 HR Interval Summary Free Text/Dictation no n/v, abdominal pain improved, no e/o overt gib Exam/Review of Systems Vital Signs Vitals Vital Signs Date Time Temp Pulse Resp B/P Pulse Ox O2 Delivery O2 Flow Rate FiO2 05/18/17 04:02 90 05/18/17 03:56 98.5 19 140/76 93 05/17/17 20:00 Nasal Cannula 05/17/17 08:00 2.0 Exam Constitutional: alert, oriented, well developed Psych: nl mood/affect, no complaints Head: atraumatic, normocephalic Eyes: EOMI, nl conjunctiva, nl lids, nl sclera ENMT: mucosa pink and moist, nl external ears & nose, nl lips & teeth, nl nasal mucosa & septum Neck: non-tender, supple Respiratory: clear to auscultation, normal air movement Cardiovascular: nl pulses, regular rate and rhythm Gastrointestinal: bowel sounds, soft, tender (epigastric) Results Result Diagram: 05/17/17 0500 05/17/17 0544 Results 24 hrs Laboratory Tests Test 05/17/17 11:35 05/17/17 17:16 05/17/17 20:50 05/18/17 06:01 Bedside Glucose 236 H 195 143 Lab Scanned Report BLOOD TRANSFUSION Test 05/18/17 07:50 Bedside Glucose 159 Medications Medications Current Medications Ondansetron HCl (Zofran Inj) 4 mg Q6H PRN IV NAUSEA AND/OR VOMITING Last administered on 05/09/17 12:58; Admin Dose 4 MG; Start 05/02/17 at 19:00 Lorazepam (Ativan) 0.5 mg Q2H PRN IV ANXIETY Last administered on 05/16/17 00 :17; Admin Dose 0.5 MG; Start 05/02/17 at 19:00 Hydromorphone HCl (Dilaudid) 1 mg Q4H PRN IV PAIN LEVEL 7-10 Last administered on 05/18/17 02:03; Admin Dose 1 MG; Start 05/02/17 at 23:00 Miscellaneous Information 1 ea NOTE XX ; Start 05/03/17 at 14:00 Glucose (Glutose) 15 gm Q15M PRN PO DECREASED GLUCOSE; Start 05/03/17 at 14:00 Glucose (Glutose) 22.5 gm Q15M PRN PO DECREASED GLUCOSE; Start 05/03/17 at 14: 00 Dextrose (D50w Syringe) 25 ml Q15M PRN IV DECREASED GLUCOSE Last administered on 05/11/17 17:25; Admin Dose 25 ML; Start 05/03/17 at 14:00 Dextrose (D50w Syringe) 50 ml Q15M PRN IV DECREASED GLUCOSE; Start 05/03/17 at 14:00 Glucagon (Glucagen) 1 mg Q15M PRN IM DECREASED GLUCOSE; Start 05/03/17 at 14:00 Glucose (Glutose) 15 gm Q15M PRN BUCCAL DECREASED GLUCOSE; Start 05/03/17 at 14 :00 Bisacodyl (Dulcolax Supp) 10 mg DAILY PRN [place] CONSTIPATION Last administered on 05/04/17 17:20; Admin Dose 10 MG; Start 05/03/17 at 17:00 [facility] This patient bustillo... PRN PRN XX WOUND CARE; Start 05/03/17 at 19:00 Olanzapine (Zyprexa) 2.5 mg BID PO Last administered on 05/17/17 20:54; Admin Dose 2.5 MG; Start 05/06/17 at 21:00 Pantoprazole (Protonix Tab) 40 mg DAILY@06 PO Last administered on 05/18/17 06:34; Admin Dose 40 MG; Start 05/07/17 at 06:00 Metoprolol Tartrate (Lopressor) 50 mg Q6 PO Last administered on 05/18/17 06: 34; Admin Dose 50 MG; Start 05/07/17 at 12:00 Nystatin (Nystatin Powder) 1 applic BID TOP Last administered on 05/17/17 08: 43; Admin Dose 1 APPLIC; Start 05/10/17 at 10:00 Insulin Glargine (Lantus) 24 unit DAILY@08 SC Last administered on 05/17/17 08:53; Admin Dose 24 UNIT; Start 05/14/17 at 08:00 Hydralazine HCl (Apresoline) 10 mg Q4H PRN IV ELEVATED SYSTOLIC BP Last administered on 05/14/17 00:53; Admin Dose 10 MG; Start 05/14/17 at 01:00 Docusate Sodium (Colace) 200 mg BID PO Last administered on 05/17/17 20:54; Admin Dose 200 MG; Start 05/16/17 at 14:00 Senna (Senokot) 1 tab DAILY PO Last administered on 05/17/17 08:42; Admin Dose 1 TAB; Start 05/16/17 at 14:00 Quetiapine Fumarate (Seroquel) 100 mg QHS PO Last administered on 05/17/17 20 :54; Admin Dose 100 MG; Start 05/16/17 at 21:00 Zolpidem Tartrate (Ambien) 5 mg HS PRN PO INSOMNIA; Start 05/16/17 at 14:00 JATINDER NÚÑEZ MD May 18, 2017 08:06
[2017-05-18 08:24] LABS: CALCIUM 8.9 mg/dl (8.4-10.2); CREATININE 1.77 mg/dl (0.61-1.24); MAGNESIUM 1.6 mg/dl (1.7-2.5); PHOSPHORUS 4.4 mg/dl (2.5-4.9); POTASSIUM 4.3 mmol/L (3.5-5.1)
[2017-05-18] MEDS: CREON (24K-76K-120K) 1 CAP PO SCH ×3 (08:27→17:35)
[2017-05-18] MEDS: OLANZAPINE 2.5 MG TAB PO SCH ×2 (08:27→21:11)
[2017-05-18] MEDS: NYSTATIN 30 GM POWDER BTL TOP SCH ×2 (08:28→21:00)
[2017-05-18] MEDS: SENNA TAB PO SCH (08:28)
[2017-05-18] MEDS: DOCUSATE SODIUM 100 MG CAP PO SCH ×2 (08:28→21:11)
[2017-05-18] MEDS: BALSAM PERU/CASTOR OIL 60 GM TUBE TOP SCH ×2 (08:29→21:12)
[2017-05-18] MEDS: INSULIN ASPART [NOVOLOG] 3 ML PEN SC SCH ×7 (08:35→21:14)
[2017-05-18] MEDS: INSULIN GLARGINE [LANtus] 3 ML PEN SC SCH (08:37)
[2017-05-18] MEDS ORDERED: MAGNESIUM SULFATE 2 GM/50 ML 50 ML IVPB ONE (12:30)
--- NOTE | 2017-05-18 16:43 | PN ---
DATE: 05/18/2017 SUBJECTIVE: The patient is stable. No events overnight. No fevers, chills, nausea, vomiting, no s hortness of breath. OBJECTIVE: VITAL SIGNS: Blood pressure 141/79, respirations 18, pulse 79, temperature 98.4. HEENT: Head is normocephalic. NECK: Supple. HEART: Regular rate. LUNGS: Show diminished breath sounds at base. ABDOMEN: Soft, nontender to palpation without rebound or guarding. EXTREMITIES: Negative for clubbing, cyanosis, no edema. DERMATOLOGIC: No rashes. MUSCULOSKELETAL: No joint effusions. NEUROLOGIC: No change in exam. MEDICATIONS: The patient's medications have been reviewed. LABORATORY DATA: Shows a sodium of 141, potassium 4.3, BUN 27, creatinine 1.77. ASSESSMENT AND PLAN: 1. Nonoliguric acute kidney injury with unknown baseline creatinine. Etiology is secondary to acut e tubular necrosis. Patient's renal function initially improved; however, over the last several day s, creatinine has been slowly increasing. This may be due to underlying hemodynamics. Renal functi on has been stable in the last 24 hours. We will repeat urinalysis, urine electrolytes. Monitor cl osely. 2. Hypomagnesemia. Continue to monitor and replete. 3. Severe sepsis, status post shock. The patient is clinically improving. Continue current antibi otic regimen. 4. Pancreatitis, improved. 5. Diabetes. Continue Accu-Cheks, insulin sliding scale. 6. Anemia. Monitor hemoglobin and hematocrit levels. 7. Acute encephalopathy. Etiology is toxic metabolic. 8. Diabetes. Continue Accu-Cheks, insulin sliding scale. Dictated By: GEN VALENZUELA/DAVIE Conf#: [id number] DID#: [id number]
--- NOTE | 2017-05-18 19:52 | CONS ---
Date/Time of Note Date/Time of Note DATE: 05/18/17 TIME: 19:52 Consult Date/Type/Reason Admit Date/Time May 02, 2017 at 14:03 Initial Consult Date 05/03/17 Type of Consultation: ID Ordering Provider: DOMINGO ARELLANO MD Objective Vital Signs Date Time Temp Pulse Resp B/P Pulse Ox O2 Delivery O2 Flow Rate FiO2 05/18/17 16:14 77 05/18/17 16:00 98.2 18 125/86 93 05/18/17 14:54 Nasal Cannula 05/17/17 08:00 2.0 Results/Medications Result Diagram: 05/17/17 0500 05/18/17 0744 Results 24 hrs Laboratory Tests Test 05/17/17 20:50 05/18/17 06:01 05/18/17 07:44 05/18/17 07:50 Bedside Glucose 143 159 Lab Scanned Report BLOOD TRANSFUSION Sodium Level 141 Potassium Level 4.3 Chloride Level 108 Carbon Dioxide Level 28 Anion Gap 9 Blood Urea Nitrogen 27 H Creatinine 1.77 H Glucose Level 133 Calcium Level 8.9 Phosphorus Level 4.4 Magnesium Level 1.6 L Test 05/18/17 11:47 05/18/17 17:29 Bedside Glucose 180 259 H Medications Current Medications Ondansetron HCl (Zofran Inj) 4 mg Q6H PRN IV NAUSEA AND/OR VOMITING Last administered on 05/09/17 12:58; Admin Dose 4 MG; Start 05/02/17 at 19:00 Lorazepam (Ativan) 0.5 mg Q2H PRN IV ANXIETY Last administered on 05/16/17 00 :17; Admin Dose 0.5 MG; Start 05/02/17 at 19:00 Hydromorphone HCl (Dilaudid) 1 mg Q4H PRN IV PAIN LEVEL 7-10 Last administered on 05/18/17 02:03; Admin Dose 1 MG; Start 05/02/17 at 23:00 Miscellaneous Information 1 ea NOTE XX ; Start 05/03/17 at 14:00 Glucose (Glutose) 15 gm Q15M PRN PO DECREASED GLUCOSE; Start 05/03/17 at 14:00 Glucose (Glutose) 22.5 gm Q15M PRN PO DECREASED GLUCOSE; Start 05/03/17 at 14: 00 Dextrose (D50w Syringe) 25 ml Q15M PRN IV DECREASED GLUCOSE Last administered on 05/11/17 17:25; Admin Dose 25 ML; Start 05/03/17 at 14:00 Dextrose (D50w Syringe) 50 ml Q15M PRN IV DECREASED GLUCOSE; Start 05/03/17 at 14:00 Glucagon (Glucagen) 1 mg Q15M PRN IM DECREASED GLUCOSE; Start 05/03/17 at 14:00 Glucose (Glutose) 15 gm Q15M PRN BUCCAL DECREASED GLUCOSE; Start 05/03/17 at 14 :00 Bisacodyl (Dulcolax Supp) 10 mg DAILY PRN [place] CONSTIPATION Last administered on 05/04/17 17:20; Admin Dose 10 MG; Start 05/03/17 at 17:00 Miscellaneous Information (Pending [facility] Order For Wound Care) This patient bustillo... PRN PRN XX WOUND CARE; Start 05/03/17 at 19:00 Olanzapine (Zyprexa) 2.5 mg BID PO Last administered on 05/18/17 08:27; Admin Dose 2.5 MG; Start 05/06/17 at 21:00 Metoprolol Tartrate (Lopressor) 50 mg Q6 PO Last administered on 05/18/17 17: 36; Admin Dose 50 MG; Start 05/07/17 at 12:00 Nystatin (Nystatin Powder) 1 applic BID TOP Last administered on 05/18/17 08: 28; Admin Dose 1 APPLIC; Start 05/10/17 at 10:00 Insulin Glargine (Lantus) 24 unit DAILY@08 SC Last administered on 05/18/17 08:37; Admin Dose 24 UNIT; Start 05/14/17 at 08:00 Hydralazine HCl (Apresoline) 10 mg Q4H PRN IV ELEVATED SYSTOLIC BP Last administered on 05/14/17 00:53; Admin Dose 10 MG; Start 05/14/17 at 01:00 Docusate Sodium (Colace) 200 mg BID PO Last administered on 05/18/17 08:28; Admin Dose 200 MG; Start 05/16/17 at 14:00 Senna (Senokot) 1 tab DAILY PO Last administered on 05/18/17 08:28; Admin Dose 1 TAB; Start 05/16/17 at 14:00 Quetiapine Fumarate (Seroquel) 100 mg QHS PO Last administered on 05/17/17t 20 :54; Admin Dose 100 MG; Start 05/16/17 at 21:00 Zolpidem Tartrate (Ambien) 5 mg HS PRN PO INSOMNIA; Start 05/16/17 at 14:00 Assessment/Plan Chief Complaint/Hosp Course SUBJECTIVE: No acute events. Alert, feels good INDWELLINGS: The patient has High, PICC line. ANTIMICROBIALS: none PHYSICAL EXAMINATION: GENERAL: This is an obese, well-developed elderly man who is in no distress. HEENT: Head atraumatic, normocephalic. Sclerae anicteric. Buccal mucosa dry. NECK: Supple. CHEST: Rise symmetrical. Breath sounds diminished to bases. HEART: S1, S2. ABDOMEN: Soft, bowel tones present. EXTREMITIES: Without cyanosis. ASSESSMENT: 1. S/p sepsis 2. Acute necrotizing pancreatitis==> resolving. 3. Diabetes. 4. Peripheral vascular disease, history of right below knee amputation. 5. History of meningioma status post craniotomy with left occipital wound culture previously grew MRSA, current been negative. 6. Acute on chronic kidney disease. 7. Status post acute encephalopathy. PLAN: Remains stable, off abx, continue present care [facility] staff Problems: JOHNNIE BARCLAY NP May 18, 2017 19:52
--- NOTE | 2017-05-18 21:09 | PN ---
DATE: 05/18/2017 PHYSICAL EXAMINATION: VITAL SIGNS: Temperature 98.4, pulse 80, respirations 18, blood pressure 121/79, saturation 94%. GENERAL: The patient is in no acute distress. The patient is pale. Left parietal wound. CARDIOVASCULAR: S1, S2, regular rate. LUNGS: Clear. ABDOMEN: Soft, distended. EXTREMITIES: Right AKA. Otherwise, no significant edema. LABORATORIES: White count is 6.3, hemoglobin 7.3; that was yesterday. BUN and creatinine today are 27 and 1.77, and magnesium is low at 1.6. MEDICATIONS: Reviewed, include the followin. Protonix 40 mg daily. 2. Creon t.i.d. 3. Seroquel 100 at bedtime. 4. Colace 200 b.i.d. 5. Senna 1 tab daily. 6. Ambien 5 mg at bedtime p.r.n. insomnia. 7. Lantus 24 units daily. 8. Hydralazine p.r.n. 9. Nystatin b.i.d. 10. Xopenex p.r.n. 11. Lopressor 50 q.6. 12. Zyprexa 2.5 b.i.d. The patient's Accu-Cheks are 181, 69 and 143. ASSESSMENT AND PLAN: This is a 67-year-old male with history of meningioma status post cr aniotomy a year ago, chronic kidney disease, right above the knee amputation who presented with seps is, acute renal failure, respiratory failure and severe pancreatitis. 1. Respiratory. Continue O2 support. Doing better. 2. Cardiovascular. Status post transfusion and diuretic administration. Currently, no evidence of fluid overload state. 3. Renal insufficiency. Stable at baseline. Monitor electrolytes. 4. Diabetes mellitus. Controlled with current regimen of Lantus and NovoLog. 5. Psychiatric disorder. Continue Seroquel. 6. Acute pancreatitis. Continue Creon and advance diet further as per surgical team. 7. Encephalopathy. Back to baseline. 8. Disposition. Hopefully soon in the a.m. Discontinue High catheter in the a.m. 9. Head wound. Follow up with neurosurgery as this is related to his previous craniotomy. Clinically improved. Plan to discharge hopefully tomorrow to [facility]. Dictated By: DOMINGO GILMORE/NTS Conf#: [id number] [facility]#: [id number]
[2017-05-18] MEDS: QUETIAPINE 100 MG TAB PO SCH (21:11)
--- NOTE | 2017-05-18 22:28 | PN ---
Date/Time of Note Date/Time of Note DATE: 05/18/17 TIME: 22:27 Assessment/Plan Lines/Catheters IV Catheter Type (from Nrs): PICC Line High in Place (from Nrs): Yes Assessment/Plan Chief Complaint/Hosp Course 1. Abdominal pain 2nd pancreatitis with ileus. Improving leukocytosis with pancreatic necrosis. No large body of fluid collections. had episode of abdominal pain, was started on creon; currently without pain, +bowel function -pain management -continue to monitor -no abx per HBS -close monitoring 2. Sepsis with lactic acidosis; +Urine cx, ? other. Leukocytosis normalized -supportive -as above 3. BMI 29 -eventual diet/exercise optimization 4. ARF: increasing uop today, cr increasing -judicious fluids -avoid nephrotoxic meds 5. Uncontrolled Diabetes: blood sugar labile -optimize sugar control -eventual diet optimization 6. Electrolyte imbalance -optimize lytes Thank you. Patient seen and examined in collaboration with Dr. Jerome Marie. Problems: Subjective 24 Hr Interval Summary Feels well. Tolerating diet. No abdominal pain. +bowel function. No fevers, chills, sob, congested cough, cp, palpitations, bustillo, dizziness, n/v/d/dysuria. Exam/Review of Systems Vital Signs Vitals Vital Signs Date Time Temp Pulse Resp B/P Pulse Ox O2 Delivery O2 Flow Rate FiO2 05/22/17 16:23 77 05/22/17 11:07 98.1 17 136/99 96 05/22/17 08:32 Nasal Cannula 2.0 Exam Free Text/Dictation Constitutional: alert, no distress, oriented Psych: min anxiety Head: atraumatic, normocephalic, other (left head wound (shunt)covered, no drainage) Eyes: nl lids, nl sclera ENMT: mucosa pink and moist, nl nasal mucosa & septum Neck: non-tender, no jvd, supple Respiratory: normal resp effort, no wheezing Cardiovascular: s1s2 Gastrointestinal: soft, non distended, non tender, umbilical hernia, no skin discoloration. No rebound or guarding Musculoskeletal: Right aka, stump clean. Moves extremities. No edema Neurological: nl mental status, delayed speech Lymphatics: No cervical or inguinal LNs Results Result Diagram: 05/22/17 0608 05/22/17 0608 JEB LIRIANO NP May 18, 2017:28
[2017-05-19] VITALS (11 sets, daily range): BP systolic 120–157; BP diastolic 66–80; PULSE 70–100; RESP 18–20
[2017-05-19] MEDS: METOPROLOL 25 MG TAB PO SCH ×4 (06:00→18:25)
--- NOTE | 2017-05-19 07:56 | PN ---
DATE: 05/17/2017 SUBJECTIVE: The patient is stable, no acute events overnight. OBJECTIVE: VITALS: Blood pressure is 133/64, temperature 97.9, pulse 78, respirations 20. HEENT: Head is normocephalic. NECK: Supple. HEART: Regular rate. LUNGS: Show diminished breath sounds at the base. ABDOMEN: Soft, nontender to palpation. No rebound or guarding. EXTREMITIES: Negative for clubbing, cyanosis. No edema. DERMATOLOGIC: No rashes. MUSCULOSKELETAL: No joint effusions. NEUROLOGIC: No change in exam. MEDICATIONS: The patient's medications have been reviewed. LABORATORY DATA: Shows sodium 142, potassium 3.9, chloride 110, BUN 23, creatinine 1.76, white coun t 6.3, hemoglobin 10.3, hematocrit 32.2, platelet count is 257. ASSESSMENT AND PLAN: 1. Nonoliguric acute kidney injury with unknown baseline creatinine. Etiology secondary to acute t ubular necrosis. Renal function has overall improved; however, in the last 2 to 3 days, the patient 's creatinine has been slowly increasing. We will continue to monitor closely. We will check urine electrolytes. 2. Hypomagnesemia. Continue to monitor and replete. 3. Severe sepsis, status post shock, clinically improving. Continue current antibiotic regimen. 4. Pancreatitis, improved. Continue to monitor. 5. Diabetes. Continue Accu-Cheks, insulin sliding scale. 6. Anemia. Monitor hemoglobin and hematocrit levels. 7. Acute encephalopathy, etiology is toxic metabolic. Continue to monitor. 8. Diabetes. Continue Accu-Cheks, insulin sliding scale. Dictated By: GEN KENNEDY DO NR/NTS Conf#: [id number] DID#: [id number] CC: DOMINGO ARELLANO MD;*EndCC*
[2017-05-19 08:39] LABS: BASOPHILS % 0.3 % (0.0-2.0); EOSINOPHILS # 0.2 10^3/ul (0.0-0.5); EOSINOPHILS % 1.6 % (0.0-7.0); HEMOGLOBIN 8.4 g/dl (14.0-18.0); LYMPHOCYTES # 0.7 10^3/ul (0.8-2.9); LYMPHOCYTES % 6.7 % (15.0-51.0); MEAN CORPUSCULAR HEMOGLOBIN 30.9 pg (29.0-33.0); MEAN CORPUSCULAR HGB CONC 33.6 g/dl (32.0-37.0); MEAN CORPUSCULAR VOLUME 91.9 fl (82.0-101.0); MEAN PLATELET VOLUME 10.6 fl (7.4-10.4); MONOCYTE # 0.7 10^3/ul (0.3-0.9); MONOCYTES % 6.9 % (0.0-11.0); NEUTROPHIL # 8.3 10^3/ul (1.6-7.5); NEUTROPHILS % 83.4 % (39.0-77.0); PLATELET COUNT 226 10^3/UL (140-415); RED BLOOD COUNT 2.72 10^6/ul (4.70-6.10); RED CELL DISTRIBUTION WIDTH 13.2 % (11.5-14.5); WHITE BLOOD COUNT 9.9 10^3/ul (4.8-10.8)
[2017-05-19] MEDS: DOCUSATE SODIUM 100 MG CAP PO SCH ×2 (09:00→20:59)
[2017-05-19] MEDS: SENNA TAB PO SCH (09:00)
--- NOTE | 2017-05-19 09:09 | PN ---
DATE: 05/19/2017 SUBJECTIVE: The patient is stable. No events overnight. No fevers, chills, nausea, vomiting. OBJECTIVE: VITAL SIGNS: Blood pressure is 120/73, respiratory rate 20, pulse 85, temperature 97.3. HEENT: Head is normocephalic. NECK: Supple. HEART: Regular rate. LUNGS: Show diminished breath sounds at base. ABDOMEN: Soft, nontender to palpation. No rebound or guarding. EXTREMITIES: Negative for clubbing, cyanosis, no edema. DERMATOLOGIC: No rashes. MUSCULOSKELETAL: No joint effusions. NEUROLOGIC: No change in exam. MEDICATIONS: The patient's medications have been reviewed. LABORATORY DATA: Has been reviewed. ASSESSMENT AND PLAN: 1. Nonoliguric acute kidney injury with unknown baseline creatinine. Etiology is secondary to acut e tubular necrosis. Patient's renal function has been fluctuating. Continue current treatment plan , supportive care, renally dose all meds. 2. Mineral bone disorder, monitor calcium and phosphorus levels. 3. Anemia, monitor hemoglobin and hematocrit levels. 4. Severe sepsis status post shock, clinically improving. Continue current antibiotic regimen. 5. Pancreatitis, improving. Continue current treatment plan. 6. Diabetes. Continue Accu-Cheks, insulin sliding scale. 7. Acute encephalopathy, improving. Dictated By: GEN VALENZUELA/DAVIE Conf#: [id number] DID#: [id number]
[2017-05-19] MEDS: OLANZAPINE 2.5 MG TAB PO SCH ×2 (09:11→20:59)
[2017-05-19] MEDS: CREON (24K-76K-120K) 1 CAP PO SCH ×3 (09:11→18:24)
[2017-05-19] MEDS: PANTOPRAZOLE (EC) 40 MG TAB PO SCH ×2 (09:11→18:24)
[2017-05-19] MEDS: INSULIN ASPART [NOVOLOG] 3 ML PEN SC SCH ×7 (09:28→21:08)
[2017-05-19] MEDS: INSULIN GLARGINE [LANtus] 3 ML PEN SC SCH (09:28)
[2017-05-19] MEDS: NYSTATIN 30 GM POWDER BTL TOP SCH ×2 (11:24→21:05)
[2017-05-19] MEDS: BALSAM PERU/CASTOR OIL 60 GM TUBE TOP SCH ×2 (11:24→21:06)
--- NOTE | 2017-05-19 12:10 | PN ---
DATE: 05/16/2017 HISTORY OF PRESENT ILLNESS: Patient seen, appears comfortable, complaining of slight constipation. Diet was advanced to full liquid diet. Noted today labs, patient still with persistent anemia with hemoglobin of 7.6. PHYSICAL EXAMINATION: VITAL SIGNS: Temperature 97.7, pulse 100, respirations 20, blood pressure 135/85, saturation 95%. GENERAL: The patient is in no acute distress, slightly confused. HEENT: Left parietal wound. The patient is pale. CARDIOVASCULAR: S1, S2, regular rate. LUNGS: Decreased bilaterally. ABDOMEN: Soft, distended but nontender. EXTREMITIES: Right AKA. No significant edema throughout. LABORATORY DATA: White count is 5.7, normal, hemoglobin 7.6, hematocrit 23, platelet count 252, alex trophils 81%, lymphocytes 9%. Chemistry: Sodium is 143, potassium 3.7, chloride 110, bicarbonate 2 7, BUN is 22, creatinine 1.7, glucose of 97. Last glucose level 223. Magnesium is 1.6. MEDICATIONS: The patient's current medications include: 1. Insulin aspart 6 units q.a.c. 2. Lantus 24 units daily. 3. Hydralazine p.r.n. 4. Insulin aspart per sliding scale. 5. Statin b.i.d. 6. Xopenex every 4 hours p.r.n. 7. Lopressor 50 hours. 8. Protonix 40 mg daily. 9. Zyprexa 2.5 b.i.d. 10. Dilaudid p.r.n. 11. Zofran . ASSESSMENT AND PLAN: This is a 67-year-old male with history of meningioma status post cr aniotomy, persistent left scab wound, chronic kidney disease, right [id number]-tlod amputations, pres ented septic with acute renal failure, respiratory failure and pancreatitis. 1. Respiratory. Continue supportive care with O2 as needed. Overall, breathing comfortably. 2. Cardiovascular: Continue above, beta blockers. 3. Acute renal failure, back to baseline. Monitor electrolytes and replace magnesium. 4. Diabetes mellitus. Overall, glucose levels are better with the above regimen. 5. Acute pancreatitis. Repeat CT scan in 1 month, per recommendations. 6. Psychiatric disorder. Continue psych medication. 7. Encephalopathy, improved from admission. 8. Constipation. Stool softeners will be provided. 9. Infectious disease. The patient is off antibiotics and antifungal. White count is normal. Obs erve, monitor for fevers and leukocytosis. 10. Advance diet. Further disposition when tolerates his diet, hopefully within a day or 2. 11. Anemia. May consider 1 unit of PRBC. We will follow. Dictated By: DOMINGO GILMORE/DAVIE Conf#: [id number] DID#: [id number]
--- NOTE | 2017-05-19 13:14 | CONS ---
Date/Time of Note Date/Time of Note DATE: 05/19/17 TIME: 13:14 Consult Date/Type/Reason Admit Date/Time May 02, 2017 at 14:03 Initial Consult Date 05/03/17 Type of Consultation: ID Ordering Provider: DOMINGO ARELLANO MD Objective Vital Signs Date Time Temp Pulse Resp B/P Pulse Ox O2 Delivery O2 Flow Rate FiO2 05/19/17 11:32 97.8 75 20 134/74 96 05/18/17 20:00 Nasal Cannula 05/17/17 08:00 2.0 Intake and Output 05/18/17 05/18/17 05/19/17 15:00 23:00 07:00 Intake Total 500 ml Output Total 1750 ml Balance -1250 ml Results/Medications Result Diagram: 05/19/1745 05/18/17 0744 Results 24 hrs Laboratory Tests Test 05/18/17 17:29 05/18/17 21:08 05/19/17 02:40 05/19/17 07:45 Bedside Glucose 259 H 236 H 155 White Blood Count 9.9 # Red Blood Count 2.72 L Hemoglobin 8.4 L Hematocrit 25.0 L Mean Corpuscular Volume 91.9 Mean Corpuscular Hemoglobin 30.9 Mean Corpuscular Hemoglobin Concent 33.6 Red Cell Distribution Width 13.2 Platelet Count 226 Mean Platelet Volume 10.6 H Neutrophils % 83.4 H Lymphocytes % 6.7 L Monocytes % 6.9 Eosinophils % 1.6 Basophils % 0.3 Nucleated Red Blood Cells % 0.0 Neutrophils # 8.3 H Lymphocytes # 0.7 L Monocytes # 0.7 Eosinophils # 0.2 Basophils # 0.0 Nucleated Red Blood Cells # 0.0 Test 05/19/17 08:44 05/19/17 13:00 Bedside Glucose 204 176 Medications Current Medications Ondansetron HCl (Zofran Inj) 4 mg Q6H PRN IV NAUSEA AND/OR VOMITING Last administered on 05/09/17 12:58; Admin Dose 4 MG; Start 05/02/17 at 19:00 Lorazepam (Ativan) 0.5 mg Q2H PRN IV ANXIETY Last administered on 05/16/17 00 :17; Admin Dose 0.5 MG; Start 05/02/17 at 19:00 Hydromorphone HCl (Dilaudid) 1 mg Q4H PRN IV PAIN LEVEL 7-10 Last administered on 05/18/17 02:03; Admin Dose 1 MG; Start 05/02/17 at 23:00 Miscellaneous Information 1 ea NOTE XX ; Start 05/03/17 at 14:00 Glucose (Glutose) 15 gm Q15M PRN PO DECREASED GLUCOSE; Start 05/03/17 at 14:00 Glucose (Glutose) 22.5 gm Q15M PRN PO DECREASED GLUCOSE; Start 05/03/17 at 14: 00 Dextrose (D50w Syringe) 25 ml Q15M PRN IV DECREASED GLUCOSE Last administered on 05/11/17 17:25; Admin Dose 25 ML; Start 05/03/17 at 14:00 Dextrose (D50w Syringe) 50 ml Q15M PRN IV DECREASED GLUCOSE; Start 05/03/17 at 14:00 Glucagon (Glucagen) 1 mg Q15M PRN IM DECREASED GLUCOSE; Start 05/03/17 at 14:00 Glucose (Glutose) 15 gm Q15M PRN BUCCAL DECREASED GLUCOSE; Start 05/03/17 at 14 :00 Bisacodyl (Dulcolax Supp) 10 mg DAILY PRN [place] CONSTIPATION Last administered on 05/04/17 17:20; Admin Dose 10 MG; Start 05/03/17 at 17:00 Miscellaneous Information (Pending [facility] Order For Wound Care) This patient bustillo... PRN PRN XX WOUND CARE; Start 05/03/17 at 19:00 Olanzapine (Zyprexa) 2.5 mg BID PO Last administered on 05/19/17 09:11; Admin Dose 2.5 MG; Start 05/06/17 at 21:00 Metoprolol Tartrate (Lopressor) 50 mg Q6 PO Last administered on 05/19/17 12: 13; Admin Dose 50 MG; Start 05/07/17 at 12:00 Nystatin (Nystatin Powder) 1 applic BID TOP Last administered on 05/19/17 11: 24; Admin Dose 1 APPLIC; Start 05/10/17 at 10:00 Insulin Glargine (Lantus) 24 unit DAILY@08 SC Last administered on 05/19/17 09:28; Admin Dose 24 UNIT; Start 05/14/17 at 08:00 Hydralazine HCl (Apresoline) 10 mg Q4H PRN IV ELEVATED SYSTOLIC BP Last administered on 05/14/17 00:53; Admin Dose 10 MG; Start 05/14/17 at 01:00 Docusate Sodium (Colace) 200 mg BID PO Last administered on 05/18/17 21:11; Admin Dose 200 MG; Start 05/16/17 at 14:00 Senna (Senokot) 1 tab DAILY PO Last administered on 05/18/17 08:28; Admin Dose 1 TAB; Start 05/16/17 at 14:00 Quetiapine Fumarate (Seroquel) 100 mg QHS PO Last administered on 05/18/17 21 :11; Admin Dose 100 MG; Start 05/16/17 at 21:00 Zolpidem Tartrate (Ambien) 5 mg HS PRN PO INSOMNIA; Start 05/16/17 at 14:00 Assessment/Plan Chief Complaint/Hosp Course SUBJECTIVE: No acute events. Alert, feels good wants to "go home" INDWELLINGS: The patient has High, PICC line. ANTIMICROBIALS: none PHYSICAL EXAMINATION: GENERAL: This is an obese, well-developed elderly man who is in no distress. HEENT: Head atraumatic, normocephalic. Sclerae anicteric. Buccal mucosa dry. NECK: Supple. CHEST: Rise symmetrical. Breath sounds diminished to bases. HEART: S1, S2. ABDOMEN: Soft, bowel tones present. EXTREMITIES: Without cyanosis. ASSESSMENT: 1. S/p sepsis 2. Acute necrotizing pancreatitis==> resolving. 3. Diabetes. 4. Peripheral vascular disease, history of right below knee amputation. 5. History of meningioma status post craniotomy with left occipital wound culture previously grew MRSA, current been negative. 6. Acute on chronic kidney disease. 7. Status post acute encephalopathy. PLAN: Remains stable, off abx, continue present care [facility] staff Problems: JOHNNIE BARCLAY NP May 19, 2017 13:14
--- NOTE | 2017-05-19 13:41 | PN ---
Date/Time of Note Date/Time of Note DATE: 05/19/17 TIME: 13:35 Assessment/Plan Lines/Catheters IV Catheter Type (from [facility]): PICC Line High in Place (from [facility]): Yes Assessment/Plan Chief Complaint/Hosp Course 1. Abdominal pain 2nd pancreatitis with ileus. Improving leukocytosis with pancreatic necrosis. No large body of fluid collections. had episode of abdominal pain, was started on creon; currently without pain, +bowel function -continue to monitor -no abx per HBS 2. Sepsis with lactic acidosis; +Urine cx, ? other. Leukocytosis normalized -supportive -as above 3. BMI 29 -eventual diet/exercise optimization 4. ARF: increasing uop today, cr increasing -judicious fluids -avoid nephrotoxic meds 5. Uncontrolled Diabetes: blood sugar labile -optimize sugar control -eventual diet optimization 6. Electrolyte imbalance -optimize lytes Thank you. Patient seen and examined in collaboration with Dr. Jerome Marie. Problems: Subjective 24 Hr Interval Summary Tolerating diet. No c/o abdominal pain/discomfort. Anxious to be discharged. No fevers, chills, sob, congested cough, n/v/d/dysuria, cp, palpitations. Exam/Review of Systems Vital Signs Vitals Vital Signs Date Time Temp Pulse Resp B/P Pulse Ox O2 Delivery O2 Flow Rate FiO2 05/19/17 13:17 80 05/19/17 11:32 97.8 20 134/74 96 05/18/17 20:00 Nasal Cannula 05/17/17 08:00 2.0 Intake and Output 05/18/17 05/18/17 05/19/17 15:00 23:00 07:00 Intake Total 500 ml Output Total 1750 ml Balance -1250 ml Exam Free Text/Dictation Constitutional: alert, no distress, oriented Psych: min anxiety Head: atraumatic, normocephalic, other (left head wound (shunt)covered, no drainage) Eyes: nl lids, nl sclera ENMT: mucosa pink and moist, nl nasal mucosa & septum Neck: non-tender, no jvd, supple Respiratory: normal resp effort, no wheezing Cardiovascular: s1s2 Gastrointestinal: soft, non distended, non tender, umbilical hernia, no skin discoloration. No rebound or guarding Musculoskeletal: Right aka, stump clean. Moves extremities. No edema Neurological: nl mental status, delayed speech Lymphatics: No cervical or inguinal LNs Results Result Diagram: 05/19/17 0745 05/18/17 0744 JEB LIRIANO NP May 19, 2017 13:41
--- NOTE | 2017-05-19 19:54 | CONS ---
Date/Time of Note Date/Time of Note DATE: 05/19/17 TIME: 19:54 Assessment/Plan Assessment/Plan Additional Assessment/Plan Chief Complaint/Hosp Course IMPRESSION: 1. 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 2. Diabetes mellitus. 3. Leukocytosis, which is most probably related to the necrosis in the pancreas. Resolved 4. Cerebrovascular accident. 5. Anemia: h/h trending down 6. History of meningioma 7. Bipolar disorder 8. Expressive aphasia Plan 1. continue Creon 2. Advance diet per surgery 3. as patient tolerates PO and pancreatic enzyme normalized, GI ok to stop IVF if ok with primary. 4. consider lap joel to help prevent future episodes per surgery discretion 5. Consider involving PT/OT 6. as hgb trending down, will obtain stool for occult blood to r/o gib, transfuse prn hgb less than 7, increased protonix to bid dosing Consultation Date/Type/Reason Admit Date/Time May 02, 2017 at 14:03 Initial Consult Date 05/03/17 Type of Consultation: ID Referring Provider: DOMINGO ARELLANO MD 24 HR Interval Summary Constitutional: improved, no complaints Exam/Review of Systems Vital Signs Vitals Vital Signs Date Time Temp Pulse Resp B/P Pulse Ox O2 Delivery O2 Flow Rate FiO2 05/19/17 19:51 98.4 80 18 138/70 94 05/19/17 08:33 Nasal Cannula 05/17/17 08:00 2.0 Intake and Output 05/18/17 05/18/17 05/19/17 14:59 22:59 06:59 Intake Total 500 ml Output Total 1750 ml Balance -1250 ml Exam Constitutional: alert, oriented, well developed Psych: nl mood/affect, no complaints Head: atraumatic, normocephalic Eyes: EOMI, PERRL, nl conjunctiva, nl lids, nl sclera ENMT: nl external ears & nose, nl lips & teeth, nl nasal mucosa & septum Neck: non-tender, supple Respiratory: clear to auscultation, normal air movement Cardiovascular: nl pulses, regular rate and rhythm Gastrointestinal: nl liver, spleen, non-tender, soft Musculoskeletal: nl extremities to inspection, nl gait and stance Extremities: normal pulses Neurological: [employer] II-XII intact, nl mental status, nl speech, nl strength Skin: nl turgor, No rash or lesions Lymph: nl lymph nodes Results Result Diagram: 05/19/17 0745 05/18/17 0744 Results 24 hrs Laboratory Tests Test 05/18/17 21:08 05/19/17 02:40 05/19/17 07:45 05/19/17 08:44 Bedside Glucose 236 H 155 204 White Blood Count 9.9 # Red Blood Count 2.72 L Hemoglobin 8.4 L Hematocrit 25.0 L Mean Corpuscular Volume 91.9 Mean Corpuscular Hemoglobin 30.9 Mean Corpuscular Hemoglobin Concent 33.6 Red Cell Distribution Width 13.2 Platelet Count 226 Mean Platelet Volume 10.6 H Neutrophils % 83.4 H Lymphocytes % 6.7 L Monocytes % 6.9 Eosinophils % 1.6 Basophils % 0.3 Nucleated Red Blood Cells % 0.0 Neutrophils # 8.3 H Lymphocytes # 0.7 L Monocytes # 0.7 Eosinophils # 0.2 Basophils # 0.0 Nucleated Red Blood Cells # 0.0 Test 05/19/17 13:00 05/19/17 18:11 Bedside Glucose 176 247 H Medications Medications Current Medications Ondansetron HCl (Zofran Inj) 4 mg Q6H PRN IV NAUSEA AND/OR VOMITING Last administered on 05/09/17 12:58; Admin Dose 4 MG; Start 05/02/17 at 19:00 Lorazepam (Ativan) 0.5 mg Q2H PRN IV ANXIETY Last administered on 05/16/17 00 :17; Admin Dose 0.5 MG; Start 05/02/17 at 19:00 Hydromorphone HCl (Dilaudid) 1 mg Q4H PRN IV PAIN LEVEL 7-10 Last administered on 05/18/17 02:03; Admin Dose 1 MG; Start 05/02/17 at 23:00 Miscellaneous Information 1 ea NOTE XX ; Start 05/03/17 at 14:00 Glucose (Glutose) 15 gm Q15M PRN PO DECREASED GLUCOSE; Start 05/03/17 at 14:00 Glucose (Glutose) 22.5 gm Q15M PRN PO DECREASED GLUCOSE; Start 05/03/17 at 14: 00 Dextrose (D50w Syringe) 25 ml Q15M PRN IV DECREASED GLUCOSE Last administered on 05/11/17 17:25; Admin Dose 25 ML; Start 05/03/17 at 14:00 Dextrose (D50w Syringe) 50 ml Q15M PRN IV DECREASED GLUCOSE; Start 05/03/17 at 14:00 Glucagon (Glucagen) 1 mg Q15M PRN IM DECREASED GLUCOSE; Start 05/03/17 at 14:00 Glucose (Glutose) 15 gm Q15M PRN BUCCAL DECREASED GLUCOSE; Start 05/03/17 at 14 :00 Bisacodyl (Dulcolax Supp) 10 mg DAILY PRN NC CONSTIPATION Last administered on 05/04/17 17:20; Admin Dose 10 MG; Start 05/03/17 at 17:00 Miscellaneous Information (Pending Santyl Order For Wound Care) This patient bustillo... PRN PRN XX WOUND CARE; Start 05/03/17 at 19:00 Olanzapine (Zyprexa) 2.5 mg BID PO Last administered on 05/19/17 09:11; Admin Dose 2.5 MG; Start 05/06/17 at 21:00 Metoprolol Tartrate (Lopressor) 50 mg Q6 PO Last administered on 05/19/17 18: 25; Admin Dose 50 MG; Start 05/07/17 at 12:00 Nystatin (Nystatin Powder) 1 applic BID TOP Last administered on 05/19/17 11: 24; Admin Dose 1 APPLIC; Start 05/10/17 at 10:00 Insulin Glargine (Lantus) 24 unit DAILY@08 SC Last administered on 05/19/17 09:28; Admin Dose 24 UNIT; Start 05/14/17 at 08:00 Hydralazine HCl (Apresoline) 10 mg Q4H PRN IV ELEVATED SYSTOLIC BP Last administered on 05/14/17 00:53; Admin Dose 10 MG; Start 05/14/17 at 01:00 Docusate Sodium (Colace) 200 mg BID PO Last administered on 05/18/17 21:11; Admin Dose 200 MG; Start 05/16/17 at 14:00 Senna (Senokot) 1 tab DAILY PO Last administered on 05/18/17 08:28; Admin Dose 1 TAB; Start 05/16/17 at 14:00 Quetiapine Fumarate (Seroquel) 100 mg QHS PO Last administered on 05/18/17 21 :11; Admin Dose 100 MG; Start 05/16/17 at 21:00 Zolpidem Tartrate (Ambien) 5 mg HS PRN PO INSOMNIA; Start 05/16/17 at 14:00 JOHNY MCCURDY MD May 19, 2017 19:54
[2017-05-19] MEDS: QUETIAPINE 100 MG TAB PO SCH (20:59)
--- NOTE | 2017-05-19 21:02 | CONS ---
Date/Time of Note Date/Time of Note DATE: 05/19/17 TIME: 20:59 Consult Date/Type/Reason Admit Date/Time May 02, 2017 at 14:03 Initial Consult Date 05/03/17 Type of Consultation: cardiology Ordering Provider: DOMINGO VINCENT MD Subjective CARDIOLOGY FOLLOW UP NOTE: S: d/w staff and rhythm was reviewed. pt remains in NSR . no afib seen BP has been well controlled now. he denies abdominal pain to me. he denies any cp or sob to me. he wants to go home O: General: in no distress HEENT: NC/AT. pupils are equal. round. NECK: NO JVD. no stridor. CV: RRR . systolic murmur; no gallop or rubs. PULM: no wheezing or rhonchi. GI: mild tenderness. no rebound. no guarding Extremity: s/p R LE amputation. neuro: awake and alert. with right sided weakness Psych: calm and pleasant rectal: deferred : normal male ECHO Personally reviewed: 1. Hyperdynamic left ventricular systolic function. Normal left ventricular cavity size. Mild concentric left ventricular hypertrophy. Ejection fraction is visually estimated at 70 %. Abnormal Diastolic Function. 2. The left atrium is normal in size. 3. Mild mitral leaflet calcification. Mild mitral annular calcification. Trace mitral regurgitation. 4. No significant aortic stenosis or insufficiency. Aortic cusps appear mildly calcified. Non coronary cusp appears moderately calcified. 5. Normal appearance of the tricuspid valve. Estimated peak PA systolic pressure 56 mmHg. There is mild tricuspid regurgitation. 6. The IVC is not well visualized. Objective Vital Signs Date Time Temp Pulse Resp B/P Pulse Ox O2 Delivery O2 Flow Rate FiO2 05/19/17 19:51 98.4 80 18 138/70 94 05/19/17 08:33 Nasal Cannula 05/17/17 08:00 2.0 Intake and Output 05/18/17 05/18/17 05/19/17 15:00 23:00 07:00 Intake Total 500 ml Output Total 1750 ml Balance -1250 ml Results/Medications Result Diagram: 05/19/17 0745 05/18/17 0744 Results 24 hrs Laboratory Tests Test 05/18/17 21:08 05/19/17 02:40 05/19/17 07:45 05/19/17 08:44 Bedside Glucose 236 H 155 204 White Blood Count 9.9 # Red Blood Count 2.72 L Hemoglobin 8.4 L Hematocrit 25.0 L Mean Corpuscular Volume 91.9 Mean Corpuscular Hemoglobin 30.9 Mean Corpuscular Hemoglobin Concent 33.6 Red Cell Distribution Width 13.2 Platelet Count 226 Mean Platelet Volume 10.6 H Neutrophils % 83.4 H Lymphocytes % 6.7 L Monocytes % 6.9 Eosinophils % 1.6 Basophils % 0.3 Nucleated Red Blood Cells % 0.0 Neutrophils # 8.3 H Lymphocytes # 0.7 L Monocytes # 0.7 Eosinophils # 0.2 Basophils # 0.0 Nucleated Red Blood Cells # 0.0 Test 05/19/17 13:00 05/19/17 18:11 Bedside Glucose 176 247 H Medications Current Medications Ondansetron HCl (Zofran Inj) 4 mg Q6H PRN IV NAUSEA AND/OR VOMITING Last administered on 05/09/17 12:58; Admin Dose 4 MG; Start 05/02/17 at 19:00 Lorazepam (Ativan) 0.5 mg Q2H PRN IV ANXIETY Last administered on 05/16/17 00 :17; Admin Dose 0.5 MG; Start 05/02/17 at 19:00 Hydromorphone HCl (Dilaudid) 1 mg Q4H PRN IV PAIN LEVEL 7-10 Last administered on 05/18/17 02:03; Admin Dose 1 MG; Start 05/02/17 at 23:00 Miscellaneous Information 1 ea NOTE XX ; Start 05/03/17 at 14:00 Glucose (Glutose) 15 gm Q15M PRN PO DECREASED GLUCOSE; Start 05/03/17 at 14:00 Glucose (Glutose) 22.5 gm Q15M PRN PO DECREASED GLUCOSE; Start 05/03/17 at 14: 00 Dextrose (D50w Syringe) 25 ml Q15M PRN IV DECREASED GLUCOSE Last administered on 05/11/17 17:25; Admin Dose 25 ML; Start 05/03/17 at 14:00 Dextrose (D50w Syringe) 50 ml Q15M PRN IV DECREASED GLUCOSE; Start 05/03/17 at 14:00 Glucagon (Glucagen) 1 mg Q15M PRN IM DECREASED GLUCOSE; Start 05/03/17 at 14:00 Glucose (Glutose) 15 gm Q15M PRN BUCCAL DECREASED GLUCOSE; Start 05/03/17 at 14 :00 Bisacodyl (Dulcolax Supp) [address] CONSTIPATION Last administered on 05/04/17 17:20; Admin Dose 10 MG; Start 05/03/17 at 17:00 Miscellaneous Information (Pending [facility] Order For Wound Care) This patient bustillo... PRN PRN XX WOUND CARE; Start 05/03/17 at 19:00 Olanzapine (Zyprexa) 2.5 mg BID PO Last administered on 05/19/17 09:11; Admin Dose 2.5 MG; Start 05/06/17 at 21:00 Metoprolol Tartrate (Lopressor) 50 mg Q6 PO Last administered on 05/19/17 18: 25; Admin Dose 50 MG; Start 05/07/17 at 12:00 Nystatin (Nystatin Powder) 1 applic BID TOP Last administered on 05/19/17 11: 24; Admin Dose 1 APPLIC; Start 05/10/17 at 10:00 Insulin Glargine (Lantus) 24 unit DAILY@08 SC Last administered on 05/19/17 09:28; Admin Dose 24 UNIT; Start 05/14/17 at 08:00 Hydralazine HCl (Apresoline) 10 mg Q4H PRN IV ELEVATED SYSTOLIC BP Last administered on 05/14/17 00:53; Admin Dose 10 MG; Start 05/14/17 at 01:00 Docusate Sodium (Colace) 200 mg BID PO Last administered on 05/18/17 21:11; Admin Dose 200 MG; Start 05/16/17 at 14:00 Senna (Senokot) 1 tab DAILY PO Last administered on 05/18/17 08:28; Admin Dose 1 TAB; Start 05/16/17 at 14:00 Quetiapine Fumarate (Seroquel) 100 mg QHS PO Last administered on 05/18/17 21 :11; Admin Dose 100 MG; Start 05/16/17 at 21:00 Zolpidem Tartrate (Ambien) 5 mg HS PRN PO INSOMNIA; Start 05/16/17 at 14:00 Assessment/Plan Chief Complaint/Hosp Course 1. Sinus tachycardia secondary to below: it has resolved now with treatment of sepsis and on betablocker 2. S/P sepsis and septic shock: BP has improved now 3. Severe pancreatitis: improved now. 4. Diabetes: will defer to IM 7. Severe metabolic acidosis: improved now 8. HX of Hypertension: under control now 9. History of dyslipidemia. 10. History of RLE amputation. 11. History of craniotomy and meningioma, status post craniotomy. 12. History of seizure disorder. 13. JESUSITA on CKD. :improving now 14. hypo Na: improved now. 15. mildly abnormal trop due to above 16. HTN RECOMMENDATIONS: Antibiotic is managed as per infectious disease and Dr. Vincent. cont Insulin. will defer to IM cont metoprolol adjust lytes prn f.u with renal consultants rec. f/u surgery and GI rec THANK YOU CARMEN MELO MD [facility]. Problems: CARMEN MELO MD May 19, 2017 21:02
--- NOTE | 2017-05-19 21:32 | PN ---
Date/Time of Note Date/Time of Note DATE: 05/19/17 TIME: 21:26 Assessment/Plan Lines/Catheters IV Catheter Type (from [facility]): PICC Line High in Place (from Nrs): Yes Assessment/Plan Assessment/Plan [facility] Progress Note Date of Service: 05/19/2017 Location of Service: Tele 5th floor Today's Assessment & Plan: Overall stable. Abd appears benign. Appears improved with Creon. No indications of major postoperative complications or wound problems. No indication for acute surgical intervention. Previous assessment that applies today: A very-pleasant but unfortunate 67-year-old gentleman with multiple comorbidities including DM2 and prior CVA among others (please see below), presenting with acute pancreatitis complicated by necrosis but without obvious evidence of infected necrosis. Etiology of pancreatitis is likely gallstone related. Condition is tenuous and prognosis is guarded given his multiple comorbidities, including malnutrition, DM2, CVA, renal insufficiency, institutionalized status, amputation, etc. With above assessment, I've recommended the followin. Keep in-house 2. Low fat regular diet and continue Creon 3. Saline lock IV's 4. Agree with no antimicrobials (elevation in WBC likely due to inflammatory response of the pancreatitis) 5. Strict I's and O's 6. Labs in a.m. 7. Long-term plan would be inpatient or outpatient lap joel to help prevent future episodes 8. Please avoid contrast in axial images since likely will not change management administrator 9. Please include me in all major decisions, specially decisions to scan the patient or to intervene with IR (very important to maintain multidisciplinary care for maximum value) 10. PT/OT Thank you very much for having me involved in the care of this very pleasant patient and I'm certain wonderful family. If you have any questions, please feel free to contact me at [phone]. Nature of presenting problem: High severity Please note that, given the extensive number of diagnoses or management options , the extensive amount and/or complexity of data needed to be reviewed, and high risk of complications and/or morbidity or mortality, this qualifies as high complexity type of decision-making. Disclaimers: 1. Inadvertent spelling and grammatical errors are likely due to electronic health record (EHR)/dictation software used and do not reflect on the quality of delivered patient care. 2. The electronic timestamp recorded on this note does not necessarily reflect the actual date and time of the visit or the service. 3. Portions of this note may have been created through electronic templates and computer algorithms that might bring in information either from the system or from other physicians and providers. Please note that such information may or may not contain errors, the occurrence of which are outside of my control. In general (but not always) this happens either in the beginning or at the end of the note. The portion of the note that I have created are generally done in 1 continuous block of text, flanked at the beginning and at the end by " ", and entered into one field in the EHR. 4. There may be other unanticipated errors in the note that are outside of my control. I can only attest to the portions of the note that I have created. Updated clinical summary: A very-pleasant but unfortunate 67-year-old gentleman with multiple comorbidities including DM2 and prior CVA among others (please see below), presenting with acute pancreatitis complicated by necrosis but without obvious evidence of infected necrosis. Etiology of pancreatitis is likely gallstone related. Comorbidities: 1. BMI 29 2. Diabetes mellitus, complicated by vascular disease (s/p R BKA) 3. CVA with right-sided weakness 4. Dyslipidemia 5. Seizure disorder 6. Bipolar disorder 7. History of CKD 8. Hypertension 9. Malnutrition (Albumin 2.3 VPH 05/10/17) 10. Expressive aphasia 11. Depression 12. Left scalp wound 13. Meningioma resection 2016 (Dr. Christian) 14. Rehab patient ([place]) Subjective: No major events or complaints; reported - abd pain and under control with medications; no n/v/d; no sob or cp; + bowel activity; + flatus; + BM and normal ;- activity Objective: Vitals: See below Exam: GENERAL: On exam, the patient was laying in bed and appeared to be comfortable and in no acute distress. ABDOMEN: Soft, nontender and nondistended. There are no peritoneal signs or guarding. SKIN: Skin appears to be pink and feels warm to touch. NEUROLOGIC: Patient is awake, alert and followed commands appropriately. Exam/Review of Systems Vital Signs Vitals Vital Signs Date Time Temp Pulse Resp B/P Pulse Ox O2 Delivery O2 Flow Rate FiO2 05/19/17 19:51 98.4 80 18 138/70 94 05/19/17 08:33 Nasal Cannula 05/17/17 08:00 2.0 Intake and Output 05/18/17 05/18/17 05/19/17 15:00 23:00 07:00 Intake Total 500 ml Output Total 1750 ml Balance -1250 ml Results Result Diagram: 05/19/17 0745 05/18/17 0744 CARA ROY M.D. May 19, 2017 21:32
[2017-05-20] VITALS (12 sets, daily range): BP systolic 133–172; BP diastolic 69–88; PULSE 69–77; RESP 17–21
[2017-05-20] MEDS: METOPROLOL 25 MG TAB PO SCH ×4 (00:23→17:23)
--- NOTE | 2017-05-20 03:37 | PN ---
DATE: 05/19/2017 SUBJECTIVE: High catheter was removed this morning. Currently has a condom catheter. Case discus sed with Dr. José Rebolledo, the hepatobiliary specialist, who stated that he would like to advance h is diet slowly and monitor. PHYSICAL EXAMINATION: VITAL SIGNS: Temperature 97.8, pulse 80, respirations 20, blood pressure 134/74, saturation 96%. GENERAL: The patient is in no acute distress. The patient is pale. CARDIOVASCULAR: S1, S2, regular rate. LUNGS: Clear. ABDOMEN: Soft, distended. EXTREMITIES: Right AKA, slight edema otherwise. LABORATORY DATA: White count is slightly higher, but normal at 9.9, hemoglobin 8.4, hematocrit 25, platelet count of 226, neutrophils 83%, lymphocytes 7%. Chemistry: Sodium is 141, potassium 4.3, c hloride 108, bicarbonate 28, BUN is 27, creatinine 1.77, that was yesterday. Last glucose levels sl ightly high at 176 and 204. MEDICATIONS: Reviewed, include the followin. Protonix 40 mg daily. 2. Creon t.i.d. meals. 3. Seroquel 100 at bedtime. 4. Colace 200 b.i.d. 5. Senna 1 tab daily. 6. Ambien 5 mg at bedtime p.r.n. 7. Insulin aspart 6 units q.a.c. meals. 8. Insulin Lantus 24 units daily. We will increase that dose to Lantus 28 and aspart 8 units. 9. Hydralazine 10 mg p.r.n. 10. Xopenex as directed. 11. Lopressor 50 q.6. 12. Zyprexa 2.5 b.i.d. 13. Hypoglycemia protocol as directed. ASSESSMENT AND PLAN: This is a 67-year-old male with history of meningioma status post cr aniotomy a year ago, chronic kidney disease, right above the knee amputation, presented with sepsis, acute renal failure, respiratory failure and severe pancreatitis. 1. Respiratory. Continue to monitor patient's breathing. Continue O2 support for now. 2. Cardiovascular. Status post transfusion. H and H corrected appropriately. Continue beta block ers. 3. Insufficiency at baseline. Monitor electrolytes. 4. Pancreatitis. Continue Creon. Advance diet further and monitor. 5. Psychiatric disorder. Discontinue Zyprexa. Continue Seroquel. 6. Encephalopathy, now back to baseline. 7. Disposition: Soon. Monitor urine output. Monitor for urinary retention. Disposition to [facility] with surgical team. Again, diet is to be advanced to soft mechanical, low fat, low cholest beau diet. 8. Head wound. Once stable, refer him to the neurosurgeon for further intervention as there was a plan to do a surgical exploration with plastic surgery. Dictated By: DOMINGO GILMORE/DAVIE Conf#: [id number] DID#: [id number]
[2017-05-20] MEDS: PANTOPRAZOLE (EC) 40 MG TAB PO SCH ×2 (07:58→17:22)
[2017-05-20] MEDS: CREON (24K-76K-120K) 1 CAP PO SCH ×3 (07:59→17:22)
[2017-05-20] MEDS: SENNA TAB PO SCH (08:00)
[2017-05-20] MEDS: OLANZAPINE 2.5 MG TAB PO SCH (08:00)
[2017-05-20] MEDS: DOCUSATE SODIUM 100 MG CAP PO SCH ×2 (08:00→20:34)
[2017-05-20] MEDS: BALSAM PERU/CASTOR OIL 60 GM TUBE TOP SCH ×2 (08:01→20:41)
[2017-05-20] MEDS: NYSTATIN 30 GM POWDER BTL TOP SCH ×2 (08:01→20:40)
[2017-05-20] MEDS: INSULIN ASPART [NOVOLOG] 3 ML PEN SC SCH ×7 (08:03→20:39)
[2017-05-20] MEDS: INSULIN GLARGINE [LANtus] 3 ML PEN SC SCH (08:05)
[2017-05-20 08:14] LABS: BASOPHILS % 0.5 % (0.0-2.0); EOSINOPHILS # 0.2 10^3/ul (0.0-0.5); EOSINOPHILS % 2.9 % (0.0-7.0); HEMATOCRIT 23.6 % (42.0-52.0); LYMPHOCYTES # 1.3 10^3/ul (0.8-2.9); LYMPHOCYTES % 21.6 % (15.0-51.0); MEAN CORPUSCULAR HEMOGLOBIN 30.8 pg (29.0-33.0); MEAN CORPUSCULAR HGB CONC 33.9 g/dl (32.0-37.0); MEAN CORPUSCULAR VOLUME 90.8 fl (82.0-101.0); MEAN PLATELET VOLUME 10.7 fl (7.4-10.4); MONOCYTE # 0.6 10^3/ul (0.3-0.9); MONOCYTES % 9.7 % (0.0-11.0); PLATELET COUNT 249 10^3/UL (140-415); RED CELL DISTRIBUTION WIDTH 12.9 % (11.5-14.5); WHITE BLOOD COUNT 6.2 10^3/ul (4.8-10.8)
[2017-05-20 08:26] LABS: CALCIUM 9.1 mg/dl (8.4-10.2); CREATININE 2.03 mg/dl (0.61-1.24); MAGNESIUM 1.8 mg/dl (1.7-2.5); PHOSPHORUS 4.8 mg/dl (2.5-4.9); POTASSIUM 4.8 mmol/L (3.5-5.1)
--- NOTE | 2017-05-20 08:28 | PN ---
DATE: 05/20/2017 SUBJECTIVE: The patient is stable. No events overnight. No fevers, chills, nausea, vomiting. OBJECTIVE: VITAL SIGNS: Blood pressure is 150/83, temperature 98.3, pulse 73, respiration 18. HEENT: Head is normocephalic. NECK: Supple. HEART: Regular rate. LUNGS: Show diminished breath sounds at the base. ABDOMEN: Soft, nontender to palpation. No rebound or guarding. EXTREMITIES: Negative for clubbing, cyanosis. No edema. DERMATOLOGIC: No rashes. MUSCULOSKELETAL: No joint effusions. NEUROLOGIC: No change in exam. MEDICATIONS: The patient's medications have been reviewed. LABORATORY DATA: From 05/20/2017 is pending ASSESSMENT AND PLAN: 1. Nonoliguric acute kidney injury with unknown baseline creatinine. Etiology is secondary to acut e tubular necrosis. Renal function has been fluctuating, but overall improved. Continue to monitor . Continue treatment plans, supportive care, renally dose all meds. 2. Mineral bone disorder. Monitor calcium and phosphorus levels. 3. Anemia. Monitor hemoglobin and hematocrit levels. 4. Severe sepsis, status post shock. The patient is clinically improved. 5. Pancreatitis. The patient is tolerating p.o., continue to monitor. Follow up with surgery. 6. Diabetes. Continue Accu-Cheks, insulin sliding scale. 7. Wound. Continue local wound care. 8. Acute encephalopathy. The patient is improving slowly. Continue to monitor. Dictated By: GEN VALENZUELA/DAVIE Conf#: [id number] DID#: [id number]
--- NOTE | 2017-05-20 12:43 | CONS ---
Date/Time of Note Date/Time of Note DATE: 05/20/17 TIME: 12:42 Assessment/Plan Assessment/Plan Additional Assessment/Plan IMPRESSION: 1. 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 2. Diabetes mellitus. 3. Leukocytosis, which is most probably related to the necrosis in the pancreas. Resolved 4. Cerebrovascular accident. 5. Anemia: h/h trending down 6. History of meningioma 7. Bipolar disorder 8. Expressive aphasia Plan 1. continue Creon 2. Advance diet per surgery 3. as patient tolerates PO and pancreatic enzyme normalized, GI ok to stop IVF if ok with primary. 4. consider lap joel to help prevent future episodes per surgery discretion 5. Consider involving PT/OT 6. as hgb trending down, will obtain stool for occult blood to r/o gib, transfuse prn hgb less than 7, increased protonix to bid dosing. No evidence of active bleeding at this point Consultation Date/Type/Reason Admit Date/Time May 02, 2017 at 14:03 Initial Consult Date 05/03/17 Type of Consultation: cardiology Referring Provider: DOMINGO ARELLANO MD 24 HR Interval Summary Constitutional: improved, no complaints Exam/Review of Systems Vital Signs Vitals Vital Signs Date Time Temp Pulse Resp B/P Pulse Ox O2 Delivery O2 Flow Rate FiO2 05/20/17 11:26 98.8 74 19 133/86 96 05/19/17 20:00 Nasal Cannula 05/17/17 08:00 2.0 Intake and Output 05/19/17 05/19/17 05/20/17 15:00 23:00 07:00 Intake Total 800 ml 200 ml Output Total 500 ml Balance 800 ml -300 ml Exam Constitutional: alert, oriented, well developed Psych: nl mood/affect, no complaints Head: atraumatic, normocephalic Eyes: EOMI, PERRL, nl conjunctiva, nl lids, nl sclera ENMT: nl external ears & nose, nl lips & teeth, nl nasal mucosa & septum Neck: non-tender, supple Respiratory: clear to auscultation, normal air movement Cardiovascular: nl pulses, regular rate and rhythm Gastrointestinal: nl liver, spleen, non-tender, soft Musculoskeletal: nl extremities to inspection, nl gait and stance Extremities: normal pulses Neurological: BODY JOINER II-XII intact, nl mental status, nl speech, nl strength Skin: nl turgor, No rash or lesions Lymph: nl lymph nodes Results Result Diagram: 05/20/17 0750 05/20/17 0750 Results 24 hrs Laboratory Tests Test 05/19/17 13:00 05/19/17 18:11 05/19/17 21:03 05/20/17 01:45 Bedside Glucose 176 247 H 304 H 176 Test 05/20/17 07:50 05/20/17 07:57 05/20/17 11:35 White Blood Count 6.2 # Red Blood Count 2.60 L Hemoglobin 8.0 L Hematocrit 23.6 L Mean Corpuscular Volume 90.8 Mean Corpuscular Hemoglobin 30.8 Mean Corpuscular Hemoglobin Concent 33.9 Red Cell Distribution Width 12.9 Platelet Count 249 Mean Platelet Volume 10.7 H Neutrophils % 64.0 Lymphocytes % 21.6 Monocytes % 9.7 Eosinophils % 2.9 Basophils % 0.5 Nucleated Red Blood Cells % 0.0 Neutrophils # 4.0 Lymphocytes # 1.3 Monocytes # 0.6 Eosinophils # 0.2 Basophils # 0.0 Nucleated Red Blood Cells # 0.0 Sodium Level 140 Potassium Level 4.8 Chloride Level 106 Carbon Dioxide Level 31 Anion Gap 8 Blood Urea Nitrogen 30 H Creatinine 2.03 H Glucose Level 135 Calcium Level 9.1 Phosphorus Level 4.8 Magnesium Level 1.8 Bedside Glucose 158 166 Medications Medications Current Medications Ondansetron HCl (Zofran Inj) 4 mg Q6H PRN IV NAUSEA AND/OR VOMITING Last administered on 05/09/17 12:58; Admin Dose 4 MG; Start 05/02/17 at 19:00 Lorazepam (Ativan) 0.5 mg Q2H PRN IV ANXIETY Last administered on 05/16/17 00 :17; Admin Dose 0.5 MG; Start 05/02/17 at 19:00 Hydromorphone HCl (Dilaudid) 1 mg Q4H PRN IV PAIN LEVEL 7-10 Last administered on 05/18/17 02:03; Admin Dose 1 MG; Start 05/02/17 at 23:00 Miscellaneous Information 1 ea NOTE XX ; Start 05/03/17 at 14:00 Glucose (Glutose) 15 gm Q15M PRN PO DECREASED GLUCOSE; Start 05/03/17 at 14:00 Glucose (Glutose) 22.5 gm Q15M PRN PO DECREASED GLUCOSE; Start 05/03/17 at 14: 00 Dextrose (D50w Syringe) 25 ml Q15M PRN IV DECREASED GLUCOSE Last administered on 05/11/17 17:25; Admin Dose 25 ML; Start 05/03/17 at 14:00 Dextrose (D50w Syringe) 50 ml Q15M PRN IV DECREASED GLUCOSE; Start 05/03/17 at 14:00 Glucagon (Glucagen) 1 mg Q15M PRN IM DECREASED GLUCOSE; Start 05/03/17 at 14:00 Glucose (Glutose) 15 gm Q15M PRN BUCCAL DECREASED GLUCOSE; Start 05/03/17 at 14 :00 Bisacodyl (Dulcolax Supp) 10 mg DAILY PRN [place] CONSTIPATION Last administered on 05/04/17 17:20; Admin Dose 10 MG; Start 05/03/17 at 17:00 Miscellaneous Information (Pending Santyl Order For Wound Care) This patient bustillo... PRN PRN XX WOUND CARE; Start 05/03/17 at 19:00 Olanzapine (Zyprexa) 2.5 mg BID PO Last administered on 05/20/17 08:00; Admin Dose 2.5 MG; Start 05/06/17 at 21:00 Metoprolol Tartrate (Lopressor) 50 mg Q6 PO Last administered on 05/20/17 11: 44; Admin Dose 50 MG; Start 05/07/17 at 12:00 Nystatin (Nystatin Powder) 1 applic BID TOP Last administered on 05/20/17 08: 01; Admin Dose 1 APPLIC; Start 05/10/17 at 10:00 Insulin Glargine (Lantus) 24 unit DAILY@08 SC Last administered on 05/20/17 08:05; Admin Dose 24 UNIT; Start 05/14/17 at 08:00 Hydralazine HCl (Apresoline) 10 mg Q4H PRN IV ELEVATED SYSTOLIC BP Last administered on 05/14/17 00:53; Admin Dose 10 MG; Start 05/14/17 at 01:00 Docusate Sodium (Colace) 200 mg BID PO Last administered on 05/20/17 08:00; Admin Dose 200 MG; Start 05/16/17 at 14:00 Senna (Senokot) 1 tab DAILY PO Last administered on 05/20/17 08:00; Admin Dose 1 TAB; Start 05/16/17 at 14:00 Quetiapine Fumarate (Seroquel) 100 mg QHS PO Last administered on 05/19/17 20 :59; Admin Dose 100 MG; Start 05/16/17 at 21:00 Zolpidem Tartrate (Ambien) 5 mg HS PRN PO INSOMNIA; Start 05/16/17 at 14:00 JOHNY MCCURDY MD May 20, 2017 12:43
--- NOTE | 2017-05-20 13:39 | PN ---
Date/Time of Note Date/Time of Note DATE: 05/20/17 TIME: 13:35 Assessment/Plan Lines/Catheters IV Catheter Type (from [facility]): PICC Line High in Place (from [facility]): Yes Assessment/Plan Chief Complaint/Hosp Course 1. Abdominal pain 2nd pancreatitis with ileus. Improving leukocytosis with pancreatic necrosis. No large body of fluid collections. had episode of abdominal pain, on creon; currently without pain, +bowel function, tolerating diet; -may be discharged per medical team. -no abx per HBS 2. Sepsis with lactic acidosis; +Urine cx, ? other. Leukocytosis normalized -supportive -as above 3. BMI 29 -eventual diet/exercise optimization 4. ARF: increasing uop today, cr increasing -judicious fluids -avoid nephrotoxic meds 5. Uncontrolled Diabetes: blood sugar labile -optimize sugar control -eventual diet optimization 6. Electrolyte imbalance -optimize lytes Thank you. Patient seen and examined in collaboration with Dr. Jerome Marie. Problems: Subjective 24 Hr Interval Summary Feels well. Anxious to be discharged. No c/o abdominal pain. Tolerating solid diet. No c/o pain, sob, congested cough, bustillo, dizziness, cp, palpitations. Exam/Review of Systems Vital Signs Vitals Vital Signs Date Time Temp Pulse Resp B/P Pulse Ox O2 Delivery O2 Flow Rate FiO2 05/20/17 12:47 77 05/20/17 11:26 98.8 19 133/86 96 05/19/17 20:00 Nasal Cannula 05/17/17 08:00 2.0 Intake and Output 05/19/17 05/19/17 05/20/17 15:00 23:00 07:00 Intake Total 800 ml 200 ml Output Total 500 ml Balance 800 ml -300 ml Exam Free Text/Dictation Constitutional: alert, no distress, oriented Psych: min anxiety Head: atraumatic, normocephalic, other (left head wound (shunt)covered, no drainage) Eyes: nl lids, nl sclera ENMT: mucosa pink and moist, nl nasal mucosa & septum Neck: non-tender, no jvd, supple Respiratory: normal resp effort, no wheezing Cardiovascular: s1s2 Gastrointestinal: soft, non distended, non tender, umbilical hernia, no skin discoloration. No rebound or guarding Musculoskeletal: Right aka, stump clean. Moves extremities. No edema Neurological: nl mental status, delayed speech Lymphatics: No cervical or inguinal LNs Results Result Diagram: 05/20/17 0750 05/20/17 0750 JEB LIRIANO NP May 20, 2017 13:39
--- NOTE | 2017-05-20 13:50 | CONS ---
Date/Time of Note Date/Time of Note DATE: 05/20/17 TIME: 13:49 Consult Date/Type/Reason Admit Date/Time May 02, 2017 at 14:03 Initial Consult Date 05/03/17 Type of Consultation: ID Ordering Provider: DOMINGO ARELLANO MD Objective Vital Signs Date Time Temp Pulse Resp B/P Pulse Ox O2 Delivery O2 Flow Rate FiO2 05/20/17 12:47 77 05/20/17 11:26 98.8 19 133/86 96 05/19/17 20:00 Nasal Cannula 05/17/17 08:00 2.0 Intake and Output 05/19/17 05/19/17 05/20/17 15:00 23:00 07:00 Intake Total 800 ml 200 ml Output Total 500 ml Balance 800 ml -300 ml Results/Medications Result Diagram: 05/20/17 0750 05/20/17 0750 Results 24 hrs Laboratory Tests Test 05/19/17 18:11 05/19/17 21:03 05/20/17 01:45 05/20/17 07:50 Bedside Glucose 247 H 304 H 176 White Blood Count 6.2 # Red Blood Count 2.60 L Hemoglobin 8.0 L Hematocrit 23.6 L Mean Corpuscular Volume 90.8 Mean Corpuscular Hemoglobin 30.8 Mean Corpuscular Hemoglobin Concent 33.9 Red Cell Distribution Width 12.9 Platelet Count 249 Mean Platelet Volume 10.7 H Neutrophils % 64.0 Lymphocytes % 21.6 Monocytes % 9.7 Eosinophils % 2.9 Basophils % 0.5 Nucleated Red Blood Cells % 0.0 Neutrophils # 4.0 Lymphocytes # 1.3 Monocytes # 0.6 Eosinophils # 0.2 Basophils # 0.0 Nucleated Red Blood Cells # 0.0 Sodium Level 140 Potassium Level 4.8 Chloride Level 106 Carbon Dioxide Level 31 Anion Gap 8 Blood Urea Nitrogen 30 H Creatinine 2.03 H Glucose Level 135 Calcium Level 9.1 Phosphorus Level 4.8 Magnesium Level 1.8 Test 05/20/17 07:57 05/20/17 11:35 Bedside Glucose 158 166 Medications Current Medications Ondansetron HCl (Zofran Inj) 4 mg Q6H PRN IV NAUSEA AND/OR VOMITING Last administered on 05/09/17t 12:58; Admin Dose 4 MG; Start 05/02/17 at 19:00 Lorazepam (Ativan) 0.5 mg Q2H PRN IV ANXIETY Last administered on 05/16/17 00 :17; Admin Dose 0.5 MG; Start 05/02/17 at 19:00 Hydromorphone HCl (Dilaudid) 1 mg Q4H PRN IV PAIN LEVEL 7-10 Last administered on 05/18/17 02:03; Admin Dose 1 MG; Start 05/02/17 at 23:00 Miscellaneous Information 1 ea NOTE XX ; Start 05/03/17 at 14:00 Glucose (Glutose) 15 gm Q15M PRN PO DECREASED GLUCOSE; Start 05/03/17 at 14:00 Glucose (Glutose) 22.5 gm Q15M PRN PO DECREASED GLUCOSE; Start 05/03/17 at 14: 00 Dextrose (D50w Syringe) 25 ml Q15M PRN IV DECREASED GLUCOSE Last administered on 05/11/17 17:25; Admin Dose 25 ML; Start 05/03/17 at 14:00 Dextrose (D50w Syringe) 50 ml Q15M PRN IV DECREASED GLUCOSE; Start 05/03/17 at 14:00 Glucagon (Glucagen) 1 mg Q15M PRN IM DECREASED GLUCOSE; Start 05/03/17 at 14:00 Glucose (Glutose) 15 gm Q15M PRN BUCCAL DECREASED GLUCOSE; Start 05/03/17 at 14 :00 Bisacodyl (Dulcolax Supp) 10 mg DAILY PRN [place] CONSTIPATION Last administered on 05/04/17 17:20; Admin Dose 10 MG; Start 05/03/17 at 17:00 Miscellaneous Information (Pending [facility] Order For Wound Care) This patient bustillo... PRN PRN XX WOUND CARE; Start 05/03/17 at 19:00 Olanzapine (Zyprexa) 2.5 mg BID PO Last administered on 05/20/17 08:00; Admin Dose 2.5 MG; Start 05/06/17 at 21:00 Metoprolol Tartrate (Lopressor) 50 mg Q6 PO Last administered on 05/20/17 11: 44; Admin Dose 50 MG; Start 05/07/17 at 12:00 Nystatin (Nystatin Powder) 1 applic BID TOP Last administered on 05/20/17 08: 01; Admin Dose 1 APPLIC; Start 05/10/17 at 10:00 Insulin Glargine (Lantus) 24 unit DAILY@08 SC Last administered on 05/20/17 08:05; Admin Dose 24 UNIT; Start 05/14/17 at 08:00 Hydralazine HCl (Apresoline) 10 mg Q4H PRN IV ELEVATED SYSTOLIC BP Last administered on 05/14/17 00:53; Admin Dose 10 MG; Start 05/14/17 at 01:00 Docusate Sodium (Colace) 200 mg BID PO Last administered on 05/20/17 08:00; Admin Dose 200 MG; Start 05/16/17 at 14:00 Senna (Senokot) 1 tab DAILY PO Last administered on 05/20/17 08:00; Admin Dose 1 TAB; Start 05/16/17 at 14:00 Quetiapine Fumarate (Seroquel) 100 mg QHS PO Last administered on 05/19/17 20 :59; Admin Dose 100 MG; Start 05/16/17 at 21:00 Zolpidem Tartrate (Ambien) 5 mg HS PRN PO INSOMNIA; Start 05/16/17 at 14:00 Assessment/Plan Chief Complaint/Hosp Course SUBJECTIVE: No acute events. Alert, feels good, no fevers INDWELLINGS: High, PICC line. ANTIMICROBIALS: none PHYSICAL EXAMINATION: GENERAL: This is an obese, well-developed elderly man who is in no distress. HEENT: Head atraumatic, normocephalic. Sclerae anicteric. Buccal mucosa dry. NECK: Supple. CHEST: Rise symmetrical. Breath sounds diminished to bases. HEART: S1, S2. ABDOMEN: Soft, bowel tones present. EXTREMITIES: Without cyanosis. ASSESSMENT: 1. S/p sepsis 2. Acute necrotizing pancreatitis==> resolving. 3. Diabetes. 4. Peripheral vascular disease, history of right below knee amputation. 5. History of meningioma status post craniotomy with left occipital wound culture previously grew MRSA, current been negative. 6. Acute on chronic kidney disease. 7. Status post acute encephalopathy. PLAN: Remains stable, off abx, continue present care, gI/surgical/card rec-s [facility] staff Problems: JOHNNIE BARCLAY NP May 20, 2017 13:50
--- NOTE | 2017-05-20 14:22 | CONS ---
Date/Time of Note Date/Time of Note DATE: 05/20/17 TIME: 14:22 Consult Date/Type/Reason Admit Date/Time May 02, 2017 at 14:03 Initial Consult Date 05/03/17 Type of Consultation: cardiology Ordering Provider: DOMINGO VINCENT MD Subjective CARDIOLOGY FOLLOW UP NOTE: S: d/w staff and rhythm was reviewed. pt remains in NSR . no afib seen BP has been well controlled now. he denies abdominal pain to me. he denies any cp or sob to me. he wants to go home O: General: in no distress HEENT: NC/AT. pupils are equal. round. NECK: NO JVD. no stridor. CV: RRR . systolic murmur; no gallop or rubs. PULM: no wheezing or rhonchi. GI: mild tenderness. no rebound. no guarding Extremity: s/p R LE amputation. neuro: awake and alert. with right sided weakness Psych: calm and pleasant rectal: deferred : normal male ECHO Personally reviewed: 1. Hyperdynamic left ventricular systolic function. Normal left ventricular cavity size. Mild concentric left ventricular hypertrophy. Ejection fraction is visually estimated at 70 %. Abnormal Diastolic Function. 2. The left atrium is normal in size. 3. Mild mitral leaflet calcification. Mild mitral annular calcification. Trace mitral regurgitation. 4. No significant aortic stenosis or insufficiency. Aortic cusps appear mildly calcified. Non coronary cusp appears moderately calcified. 5. Normal appearance of the tricuspid valve. Estimated peak PA systolic pressure 56 mmHg. There is mild tricuspid regurgitation. 6. The IVC is not well visualized. Objective Vital Signs Date Time Temp Pulse Resp B/P Pulse Ox O2 Delivery O2 Flow Rate FiO2 05/20/17 12:47 77 05/20/17 11:26 98.8 19 133/86 96 05/19/17 20:00 Nasal Cannula 05/17/17 08:00 2.0 Intake and Output 05/19/17 05/19/17 05/20/17 15:00 23:00 07:00 Intake Total 800 ml 200 ml Output Total 500 ml Balance 800 ml -300 ml Results/Medications Result Diagram: 05/20/17 0750 05/20/17 0750 Results 24 hrs Laboratory Tests Test 05/19/17 18:11 05/19/17 21:03 05/20/17 01:45 05/20/17 07:50 Bedside Glucose 247 H 304 H 176 White Blood Count 6.2 # Red Blood Count 2.60 L Hemoglobin 8.0 L Hematocrit 23.6 L Mean Corpuscular Volume 90.8 Mean Corpuscular Hemoglobin 30.8 Mean Corpuscular Hemoglobin Concent 33.9 Red Cell Distribution Width 12.9 Platelet Count 249 Mean Platelet Volume 10.7 H Neutrophils % 64.0 Lymphocytes % 21.6 Monocytes % 9.7 Eosinophils % 2.9 Basophils % 0.5 Nucleated Red Blood Cells % 0.0 Neutrophils # 4.0 Lymphocytes # 1.3 Monocytes # 0.6 Eosinophils # 0.2 Basophils # 0.0 Nucleated Red Blood Cells # 0.0 Sodium Level 140 Potassium Level 4.8 Chloride Level 106 Carbon Dioxide Level 31 Anion Gap 8 Blood Urea Nitrogen 30 H Creatinine 2.03 H Glucose Level 135 Calcium Level 9.1 Phosphorus Level 4.8 Magnesium Level 1.8 Test 05/20/17 07:57 05/20/17 11:35 Bedside Glucose 158 166 Medications Current Medications Ondansetron HCl (Zofran Inj) 4 mg Q6H PRN IV NAUSEA AND/OR VOMITING Last administered on 05/09/17 12:58; Admin Dose 4 MG; Start 05/02/17 at 19:00 Lorazepam (Ativan) 0.5 mg Q2H PRN IV ANXIETY Last administered on 05/16/17 00 :17; Admin Dose 0.5 MG; Start 05/02/17 at 19:00 Hydromorphone HCl (Dilaudid) 1 mg Q4H PRN IV PAIN LEVEL 7-10 Last administered on 05/18/17 02:03; Admin Dose 1 MG; Start 05/02/17 at 23:00 Miscellaneous Information 1 ea NOTE XX ; Start 05/03/17 at 14:00 Glucose (Glutose) 15 gm Q15M PRN PO DECREASED GLUCOSE; Start 05/03/17 at 14:00 Glucose (Glutose) 22.5 gm Q15M PRN PO DECREASED GLUCOSE; Start 05/03/17 at 14: 00 Dextrose (D50w Syringe) 25 ml Q15M PRN IV DECREASED GLUCOSE Last administered on 05/11/17 17:25; Admin Dose 25 ML; Start 05/03/17 at 14:00 Dextrose (D50w Syringe) 50 ml Q15M PRN IV DECREASED GLUCOSE; Start 05/03/17 at 14:00 Glucagon (Glucagen) 1 mg Q15M PRN IM DECREASED GLUCOSE; Start 05/03/17 at 14:00 Glucose (Glutose) 15 gm Q15M PRN BUCCAL DECREASED GLUCOSE; Start 05/03/17 at 14 :00 Bisacodyl (Dulcolax Supp) 10 mg DAILY PRN [place] CONSTIPATION Last administered on 05/04/17 17:20; Admin Dose 10 MG; Start 05/03/17 at 17:00 Miscellaneous Information (Pending Santyl Order For Wound Care) This patient bustillo... PRN PRN XX WOUND CARE; Start 05/03/17 at 19:00 Olanzapine (Zyprexa) 2.5 mg BID PO Last administered on 05/20/17 08:00; Admin Dose 2.5 MG; Start 05/06/17 at 21:00 Metoprolol Tartrate (Lopressor) 50 mg Q6 PO Last administered on 05/20/17 11: 44; Admin Dose 50 MG; Start 05/07/17 at 12:00 Nystatin (Nystatin Powder) 1 applic BID TOP Last administered on 05/20/17 08: 01; Admin Dose 1 APPLIC; Start 05/10/17 at 10:00 Insulin Glargine (Lantus) 24 unit DAILY@08 SC Last administered on 05/20/17 08:05; Admin Dose 24 UNIT; Start 05/14/17 at 08:00 Hydralazine HCl (Apresoline) 10 mg Q4H PRN IV ELEVATED SYSTOLIC BP Last administered on 05/14/17 00:53; Admin Dose 10 MG; Start 05/14/17 at 01:00 Docusate Sodium (Colace) 200 mg BID PO Last administered on 05/20/17 08:00; Admin Dose 200 MG; Start 05/16/17 at 14:00 Senna (Senokot) 1 tab DAILY PO Last administered on 05/20/17 08:00; Admin Dose 1 TAB; Start 05/16/17 at 14:00 Quetiapine Fumarate (Seroquel) 100 mg QHS PO Last administered on 05/19/17 20 :59; Admin Dose 100 MG; Start 05/16/17 at 21:00 Zolpidem Tartrate (Ambien) 5 mg HS PRN PO INSOMNIA; Start 05/16/17 at 14:00 Assessment/Plan Chief Complaint/Hosp Course 1. Sinus tachycardia secondary to below: it has resolved now with treatment of sepsis and on betablocker 2. S/P sepsis and septic shock: BP has improved now 3. Severe pancreatitis: improved now. 4. Diabetes: will defer to IM 7. Severe metabolic acidosis: improved now 8. HX of Hypertension: under control now 9. History of dyslipidemia. 10. History of RLE amputation. 11. History of craniotomy and meningioma, status post craniotomy. 12. History of seizure disorder. 13. JESUSITA on CKD. : 14. hypo Na: improved now. 15. mildly abnormal trop due to above 16. HTN RECOMMENDATIONS: Antibiotic is managed as per infectious disease and Dr. Vincent. cont Insulin. will defer to IM cont metoprolol adjust lytes prn f.u with renal consultants rec. f/u surgery and GI rec THANK YOU CARMEN MELO MD [facility]. Problems: CARMEN MELO MD May 20, 2017 14:22
--- NOTE | 2017-05-20 18:14 | PN ---
Date/Time of Note Date/Time of Note DATE: 05/20/17 TIME: 18:12 Assessment/Plan Lines/Catheters IV C[facility]ter Type (from [facility]): PICC Line High in Place (from [facility]): Yes Assessment/Plan Assessment/Plan [facility] Progress Note Date of Service: 05/20/2017 Location of Service: Tele 5th floor Today's Assessment & Plan: Overall stable. Abd appears benign. Appears improved with Creon. No indications of major postoperative complications or wound problems. No indication for acute surgical intervention. Patient okay from my standpoint to discharge home if medically cleared. Previous assessment that applies today: A very-pleasant but unfortunate 67-year-old gentleman with multiple comorbidities including DM2 and prior CVA among others (please see below), presenting with acute pancreatitis complicated by necrosis but without obvious evidence of infected necrosis. Etiology of pancreatitis is likely gallstone related. Multiple comorbidities, including malnutrition, DM2, CVA, renal insufficiency, institutionalized status, amputation, etc. also exists. With above assessment, I've recommended the followin. Okay to discharge from my standpoint if medically cleared 2. Long-term plan would be inpatient or outpatient lap joel to help prevent future episodes Thank you very much for having me involved in the care of this very pleasant patient and I'm certain wonderful family. If you have any questions, please feel free to contact me at [phone]. Nature of presenting problem: High severity Please note that, given the extensive number of diagnoses or management options , the extensive amount and/or complexity of data needed to be reviewed, and high risk of complications and/or morbidity or mortality, this qualifies as high complexity type of decision-making. Disclaimers: 1. Inadvertent spelling and grammatical errors are likely due to electronic health record (EHR)/dictation software used and do not reflect on the quality of delivered patient care. 2. The electronic timestamp recorded on this note does not necessarily reflect the actual date and time of the visit or the service. 3. Portions of this note may have been created through electronic templates and computer algorithms that might bring in information either from the system or from other physicians and providers. Please note that such information may or may not contain errors, the occurrence of which are outside of my control. In general (but not always) this happens either in the beginning or at the end of the note. The portion of the note that I have created are generally done in 1 continuous block of text, flanked at the beginning and at the end by " ", and entered into one field in the EHR. 4. There may be other unanticipated errors in the note that are outside of my control. I can only attest to the portions of the note that I have created. Updated clinical summary: A very-pleasant but unfortunate 67-year-old gentleman with multiple comorbidities including DM2 and prior CVA among others (please see below), presenting with acute pancreatitis complicated by necrosis but without obvious evidence of infected necrosis. Etiology of pancreatitis is likely gallstone related. Comorbidities: 1. BMI 29 2. Diabetes mellitus, complicated by vascular disease (s/p R BKA) 3. CVA with right-sided weakness 4. Dyslipidemia 5. Seizure disorder 6. Bipolar disorder 7. History of CKD 8. Hypertension 9. Malnutrition (Albumin 2.3 VPH 05/10/17) 10. Expressive aphasia 11. Depression 12. Left scalp wound 13. Meningioma resection 2016 (Dr. Christian) 14. Rehab patient ([facility]) Subjective: No major events or complaints; reported - abd pain and under control with medications; no n/v/d; no sob or cp; + bowel activity; + flatus; + BM and normal ;- activity; tolerated regular low-fat diet Objective: Vitals: See below Exam: GENERAL: On exam, the patient was laying in bed and appeared to be comfortable and in no acute distress. ABDOMEN: Soft, nontender and nondistended. There are no peritoneal signs or guarding. SKIN: Skin appears to be pink and feels warm to touch. NEUROLOGIC: Patient is awake, alert and followed commands appropriately. Exam/Review of Systems Vital Signs Vitals Vital Signs Date Time Temp Pulse Resp B/P Pulse Ox O2 Delivery O2 Flow Rate FiO2 05/20/17 17:05 71 05/20/17 16:00 Nasal Cannula 05/20/17 15:09 98.2 18 143/76 93 05/17/17 08:00 2.0 Intake and Output 05/19/17 05/19/17 05/20/17 15:00 23:00 07:00 Intake Total 800 ml 200 ml Output Total 500 ml Balance 800 ml -300 ml Results Result Diagram: 05/20/17 0750 05/20/17 0750 CARA ROY M.D. May 20, 2017 18:14
--- NOTE | 2017-05-20 20:33 | PN ---
DATE: 05/20/2017 SUBJECTIVE: The patient overall with no complaints. He is afebrile. Noted a drop in his hemoglobi n from 8.4 to 8.0. Recent transfusion. May benefit from Epogen. Diet was advanced to soft diet as the patient is tolerating it. PHYSICAL EXAMINATION: VITAL SIGNS: Temperature 98, pulse 71, respirations 20, blood pressure 157/80, saturation 96%. GENERAL: No acute distress. The patient is pale. HEAD: Normocephalic, atraumatic. CARDIOVASCULAR: S1, S2, regular rate. LUNGS: Clear. Decreased bilaterally. ABDOMEN: Soft, remains distended but nontender. EXTREMITIES: Right AKA. Otherwise, slight edema of the left lower extremity. LABORATORIES: White count is 6.2, hemoglobin 8, hematocrit 23.6, platelet count 249, normal differe ntial. Chemistry: Sodium is 140, potassium 4.8, chloride 106, bicarb 31, BUN is 30, creatinine inc reased to 2.03 and glucose of 135. MEDICATIONS: Reviewed, include the followin. Protonix 40 mg daily. 2. Creon t.i.d. with meals. 3. Seroquel 100 at bedtime. 4. Colace 200 b.i.d. 5. Senna 1 tab daily. 6. Ambien 5 mg at bedtime p.r.n. 7. Lantus 24 units daily. 8. Hydralazine 10 mg p.r.n. 9. Nystatin b.i.d. 10. Xopenex p.r.n. 11. Lopressor 50 mg q.6. 12. Zyprexa 2.5 b.i.d. 13. Hypoglycemia protocol as directed. 14. Dilaudid, Zofran, DuoNeb and Ativan p.r.n. ASSESSMENT AND PLAN: This is a 67-year-old male with history of meningioma status post cr aniotomy, chronic kidney disease, right above the knee amputation, presented with sepsis, acute jaleel l failure, respiratory failure and severe pancreatitis. 1. Respiratory: Continue supportive care, O2 support as needed, breathing treatment as needed. 2. Cardiovascular: Blood pressure improved. Continue beta blockers. 3. Anemia: Status post transfusion. Will start the patient on Epogen. 4. Pancreatitis: Continue Creon. Further recommendations per gastroenterology and hepatobiliary. 5. Psychiatric disorder: Continue Seroquel. Discontinue Zyprexa. 6. Encephalopathy: Back to baseline. 7. Disposition when okay by surgical team. 8. Head wound: Follow up with neurosurgery. 9. Diabetes mellitus: Glucose levels are as follows: 166, 158, 176. Will continue with current r egimen for now. Observe. 10. Infectious disease: Off antibiotics. White count is normal, and the patient is afebrile. Overall improving. Disposition soon. Dictated By: DOMINGO GILMORE/DAVIE Conf#: [id number] DID#: [id number]
[2017-05-20] MEDS: QUETIAPINE 100 MG TAB PO SCH (20:35)
[2017-05-21] VITALS (10 sets, daily range): BP systolic 133–171; BP diastolic 70–88; PULSE 74–80; RESP 17–21
[2017-05-21] MEDS: METOPROLOL 25 MG TAB PO SCH ×5 (00:23→23:58)
[2017-05-21] MEDS: PANTOPRAZOLE (EC) 40 MG TAB PO SCH ×2 (06:35→16:51)
[2017-05-21 07:24] LABS: BASOPHILS % 0.4 % (0.0-2.0); EOSINOPHILS # 0.2 10^3/ul (0.0-0.5); EOSINOPHILS % 2.7 % (0.0-7.0); HEMATOCRIT 24.7 % (42.0-52.0); HEMOGLOBIN 8.1 g/dl (14.0-18.0); LYMPHOCYTES # 1.3 10^3/ul (0.8-2.9); LYMPHOCYTES % 23.9 % (15.0-51.0); MEAN CORPUSCULAR HEMOGLOBIN 30.6 pg (29.0-33.0); MEAN CORPUSCULAR HGB CONC 32.8 g/dl (32.0-37.0); MEAN CORPUSCULAR VOLUME 93.2 fl (82.0-101.0); MEAN PLATELET VOLUME 10.8 fl (7.4-10.4); MONOCYTE # 0.4 10^3/ul (0.3-0.9); MONOCYTES % 7.5 % (0.0-11.0); NEUTROPHIL # 3.6 10^3/ul (1.6-7.5); NEUTROPHILS % 64.2 % (39.0-77.0); PLATELET COUNT 249 10^3/UL (140-415); RED BLOOD COUNT 2.65 10^6/ul (4.70-6.10); RED CELL DISTRIBUTION WIDTH 12.9 % (11.5-14.5); WHITE BLOOD COUNT 5.6 10^3/ul (4.8-10.8)
[2017-05-21 07:43] LABS: CALCIUM 9.4 mg/dl (8.4-10.2); CREATININE 2.31 mg/dl (0.61-1.24); MAGNESIUM 1.7 mg/dl (1.7-2.5); PHOSPHORUS 5.1 mg/dl (2.5-4.9); POTASSIUM 5.3 mmol/L (3.5-5.1)
[2017-05-21] MEDS: INSULIN GLARGINE [LANtus] 3 ML PEN SC SCH (08:09)
[2017-05-21] MEDS: INSULIN ASPART [NOVOLOG] 3 ML PEN SC SCH ×7 (08:10→21:02)
[2017-05-21] MEDS: BALSAM PERU/CASTOR OIL 60 GM TUBE TOP SCH ×2 (08:17→20:57)
[2017-05-21] MEDS: NYSTATIN 30 GM POWDER BTL TOP SCH ×2 (08:17→20:56)
[2017-05-21] MEDS: CREON (24K-76K-120K) 1 CAP PO SCH ×3 (08:18→16:51)
[2017-05-21] MEDS: DOCUSATE SODIUM 100 MG CAP PO SCH ×2 (08:18→20:56)
[2017-05-21] MEDS: SENNA TAB PO SCH (08:19)
--- NOTE | 2017-05-21 08:54 | CONS ---
Date/Time of Note Date/Time of Note DATE: 05/21/17 TIME: 08:53 Consult Date/Type/Reason Admit Date/Time May 02, 2017 at 14:03 Initial Consult Date 05/03/17 Type of Consultation: cardiology Ordering Provider: DOMINGO VINCENT MD Subjective CARDIOLOGY FOLLOW UP NOTE: S: d/w staff and rhythm was reviewed. pt remains in NSR . no afib seen BP has been well controlled now. he denies abdominal pain to me. he denies any cp or sob to me. he is able to eat and wants to go home O: General: in no distress HEENT: NC/AT. pupils are equal. round. NECK: NO JVD. no stridor. CV: RRR . systolic murmur; no gallop or rubs. PULM: no wheezing or rhonchi. GI: mild tenderness. no rebound. no guarding Extremity: s/p R LE amputation. neuro: awake and alert. with right sided weakness Psych: calm and pleasant rectal: deferred : normal male ECHO Personally reviewed: 1. Hyperdynamic left ventricular systolic function. Normal left ventricular cavity size. Mild concentric left ventricular hypertrophy. Ejection fraction is visually estimated at 70 %. Abnormal Diastolic Function. 2. The left atrium is normal in size. 3. Mild mitral leaflet calcification. Mild mitral annular calcification. Trace mitral regurgitation. 4. No significant aortic stenosis or insufficiency. Aortic cusps appear mildly calcified. Non coronary cusp appears moderately calcified. 5. Normal appearance of the tricuspid valve. Estimated peak PA systolic pressure 56 mmHg. There is mild tricuspid regurgitation. 6. The IVC is not well visualized. Objective Vital Signs Date Time Temp Pulse Resp B/P Pulse Ox O2 Delivery O2 Flow Rate FiO2 05/21/17 08:42 77 05/21/17 04:02 97.9 20 133/70 98 05/20/17 20:00 Nasal Cannula 2.0 Intake and Output 05/20/17 05/20/17 05/21/17 15:00 23:00 07:00 Intake Total 500 ml 220 ml Output Total 650 ml 600 ml Balance -150 ml -380 ml Results/Medications Result Diagram: 05/21/17 0619 05/21/17 0619 Results 24 hrs Laboratory Tests Test 05/20/17 11:35 05/20/17 17:20 05/20/17 20:32 05/21/17 02:19 Bedside Glucose 166 121 172 139 Test 05/21/17 06:19 05/21/17 06:20 05/21/17 08:01 White Blood Count 5.6 Red Blood Count 2.65 L Hemoglobin 8.1 L Hematocrit 24.7 L Mean Corpuscular Volume 93.2 Mean Corpuscular Hemoglobin 30.6 Mean Corpuscular Hemoglobin Concent 32.8 Red Cell Distribution Width 12.9 Platelet Count 249 Mean Platelet Volume 10.8 H Neutrophils % 64.2 Lymphocytes % 23.9 Monocytes % 7.5 Eosinophils % 2.7 Basophils % 0.4 Nucleated Red Blood Cells % 0.0 Neutrophils # 3.6 Lymphocytes # 1.3 Monocytes # 0.4 Eosinophils # 0.2 Basophils # 0.0 Nucleated Red Blood Cells # 0.0 Sodium Level 140 Potassium Level 5.3 H Chloride Level 105 Carbon Dioxide Level 30 Anion Gap 10 Blood Urea Nitrogen 35 H Creatinine 2.31 H Glucose Level 141 Calcium Level 9.4 Phosphorus Level 5.1 H Magnesium Level 1.7 Urine Random Creatinine 36.19 Urine Random Sodium 120 H Urine Total Protein 83.0 H Bedside Glucose 160 Medications Current Medications Ondansetron HCl (Zofran Inj) 4 mg Q6H PRN IV NAUSEA AND/OR VOMITING Last administered on 05/09/17 12:58; Admin Dose 4 MG; Start 05/02/17 at 19:00 Lorazepam (Ativan) 0.5 mg Q2H PRN IV ANXIETY Last administered on 05/16/17 00 :17; Admin Dose 0.5 MG; Start 05/02/17 at 19:00 Hydromorphone HCl (Dilaudid) 1 mg Q4H PRN IV PAIN LEVEL 7-10 Last administered on 05/18/17 02:03; Admin Dose 1 MG; Start 05/02/17 at 23:00 Miscellaneous Information 1 ea NOTE XX ; Start 05/03/17 at 14:00 Glucose (Glutose) 15 gm Q15M PRN PO DECREASED GLUCOSE; Start 05/03/17 at 14:00 Glucose (Glutose) 22.5 gm Q15M PRN PO DECREASED GLUCOSE; Start 05/03/17 at 14: 00 Dextrose (D50w Syringe) 25 ml Q15M PRN IV DECREASED GLUCOSE Last administered on 05/11/17 17:25; Admin Dose 25 ML; Start 05/03/17 at 14:00 Dextrose (D50w Syringe) 50 ml Q15M PRN IV DECREASED GLUCOSE; Start 05/03/17 at 14:00 Glucagon (Glucagen) 1 mg Q15M PRN IM DECREASED GLUCOSE; Start 05/03/17 at 14:00 Glucose (Glutose) 15 gm Q15M PRN BUCCAL DECREASED GLUCOSE; Start 05/03/17 at 14 :00 Bisacodyl (Dulcolax Supp) 10 mg DAILY PRN [place] CONSTIPATION Last administered on 05/04/17 17:20; Admin Dose 10 MG; Start 05/03/17 at 17:00 Miscellaneous Information [facility] This patient bustillo... PRN PRN XX WOUND CARE; Start 05/03/17 at 19:00 Metoprolol Tartrate (Lopressor) 50 mg Q6 PO Last administered on 05/21/17 06: 36; Admin Dose 50 MG; Start 05/07/17 at 12:00 Nystatin (Nystatin Powder) 1 applic BID TOP Last administered on 05/21/17 08: 17; Admin Dose 1 APPLIC; Start 05/10/17 at 10:00 Insulin Glargine (Lantus) 24 unit DAILY@08 SC Last administered on 05/21/17 08:09; Admin Dose 24 UNIT; Start 05/14/17 at 08:00 Hydralazine HCl (Apresoline) 10 mg Q4H PRN IV ELEVATED SYSTOLIC BP Last administered on 05/14/17 00:53; Admin Dose 10 MG; Start 05/14/17 at 01:00 Docusate Sodium (Colace) 200 mg BID PO Last administered on 05/21/17 08:18; Admin Dose 200 MG; Start 05/16/17 at 14:00 Senna (Senokot) 1 tab DAILY PO Last administered on 05/21/17 08:19; Admin Dose 1 TAB; Start 05/16/17 at 14:00 Zolpidem Tartrate (Ambien) 5 mg HS PRN PO INSOMNIA; Start 05/16/17 at 14:00 Quetiapine Fumarate (Seroquel) 150 mg QHS PO Last administered on 05/20/17 20 :35; Admin Dose 150 MG; Start 05/20/17 at 21:00 Assessment/Plan Chief Complaint/Hosp Course 1. Sinus tachycardia secondary to below: it has resolved now with treatment of sepsis and on betablocker 2. S/P sepsis and septic shock: BP has improved now 3. Severe pancreatitis: improved now. 4. Diabetes: will defer to IM 7. Severe metabolic acidosis: improved now 8. HX of Hypertension: under control now 9. History of dyslipidemia. 10. History of RLE amputation. 11. History of craniotomy and meningioma, status post craniotomy. 12. History of seizure disorder. 13. JESUSITA on CKD. : 14. hypo Na: improved now. 15. mildly abnormal trop due to above 16. HTN: under control now. RECOMMENDATIONS: Antibiotic is managed as per infectious disease and Dr. Vincent. cont Insulin. will defer to IM cont metoprolol adjust lytes prn f.u with renal consultants rec regarding renal failure. f/u surgery and GI rec THANK YOU CARMEN MELO MD [facility]. Problems: CARMEN MELO MD May 21, 2017 08:54
--- NOTE | 2017-05-21 10:54 | PN ---
DATE: 05/21/2017 SUBJECTIVE: The patient is stable in sinus rhythm. No other acute events noted overnight. No feve rs, chills, nausea, vomiting. OBJECTIVE: VITAL SIGNS: Blood pressure 133/70, respirations 20, pulse 75, temperature 97.9. HEENT: Head is normocephalic. NECK: Supple. HEART: Regular rate. LUNGS: Show diminished breath sounds at base. ABDOMEN: Soft, nontender to palpation without rebound or guarding. EXTREMITIES: Negative for clubbing, cyanosis. No edema, positive BKA. DERMATOLOGIC: No rashes. MUSCULOSKELETAL: No joint effusions. NEUROLOGIC: No change in exam. MEDICATIONS: The patient's medications have been reviewed. LABORATORY DATA: Shows white count 5.6, hemoglobin 8.1, hematocrit 24.7, platelet count 249. Sodiu m 140, potassium 5.3, BUN 35, creatinine 2.31. Phosphorus is 5.1. ASSESSMENT AND PLAN: 1. Nonoliguric acute kidney injury on top of chronic kidney disease with previous baseline creatini jimmy around 1.5 to 2.5 mg/dL. Etiology of current acute kidney injury is secondary to acute tubular necrosis. The patient's renal function initially improved; however, the patient's creatinine has be en increasing over the last several days. This may be returning back to previous baseline as the pa tient has been off IV fluids. However, will monitor closely. If renal function should continue to decline, would consider a fluid challenge. 2. Hyperkalemia. Etiology secondary to chronic kidney disease and acute kidney injury. The patien t's potassium levels mildly elevated. We will place the patient on a low potassium diet and repeat a potassium level and monitor. 3. Mineral bone disorder. Monitor calcium and phosphorus levels. 4. Anemia. Monitor hemoglobin and hematocrit levels. 5. Severe sepsis, status post shock. The patient is clinically improving. Continue to monitor. 6. Pancreatitis tolerating p.o. Continue. 7. Diabetes. Continue current insulin regimen. 8. Wound. Continue local wound care. 9. Acute encephalopathy. Patient's mental status is improving. Dictated By: GEN VALENZUELA/NTS Conf#: [id number] DID#: [id number]
[2017-05-21 14:40] LABS: ADD UMIC YES; UR ASCORBIC ACID NEGATIVE (NEGATIVE); UR BACTERIA FEW /HPF (NONE SEEN); UR BILIRUBIN (Dip) NEGATIVE (NEGATIVE); UR BLOOD (Dip) 1+ mg/dL (NEGATIVE); UR CLARITY CLEAR (CLEAR); UR COLOR STRAW (YELLOW); UR GLUCOSE (Dip) NEGATIVE (NEGATIVE); UR KETONES (Dip) NEGATIVE (NEGATIVE); UR LEUKOCYTE ESTERASE (Dip) NEGATIVE Leu/ul (NEGATIVE); UR NITRITE (Dip) NEGATIVE (NEGATIVE); UR RBC 3 /HPF (0-5); UR TOTAL PROTEIN (Dip) 2+ mg/dl (NEGATIVE); UR UROBILINOGEN (Dip) NEGATIVE (NEGATIVE)
--- NOTE | 2017-05-21 15:27 | PN ---
Date/Time of Note Date/Time of Note DATE: 05/21/17 TIME: 15:23 Assessment/Plan Lines/Catheters IV Catheter Type (from [facility]): PICC Line High in Place (from [facility]): No Assessment/Plan Chief Complaint/Hosp Course 1. Abdominal pain 2nd pancreatitis with ileus. Improving leukocytosis with pancreatic necrosis. No large body of fluid collections. had episode of abdominal pain, on creon; currently without pain, +bowel function, tolerating diet; -may be discharged per medical team. -no abx per HBS 2. Sepsis with lactic acidosis; +Urine cx, ? other. Leukocytosis normalized -supportive -as above 3. BMI 29 -eventual diet/exercise optimization 4. ARF: increasing uop today, cr cont to increase -per renal -judicious fluids -avoid nephrotoxic meds 5. Uncontrolled Diabetes: blood sugar labile -optimize sugar control -eventual diet optimization 6. Electrolyte imbalance -optimize lytes Thank you. Patient seen and examined in collaboration with Dr. Jerome Marie. Problems: Subjective 24 Hr Interval Summary Feels well. Still anxious to go home. Tolerating diet. No fevers, chills, sob, congested cough, cp, palpitations, bustillo, dizziness, n/v/d/dysuria. +bowel function. CR increasing Exam/Review of Systems Vital Signs Vitals Vital Signs Date Time Temp Pulse Resp B/P Pulse Ox O2 Delivery O2 Flow Rate FiO2 05/21/17 12:43 80 05/21/17 11:30 98.4 17 148/78 95 05/21/17 08:00 Nasal Cannula 3.0 Intake and Output 05/20/17 05/20/17 05/21/17 15:00 23:00 07:00 Intake Total 500 ml 220 ml Output Total 650 ml 600 ml Balance -150 ml -380 ml Exam Free Text/Dictation Constitutional: alert, no distress, oriented Psych: min anxiety Head: atraumatic, normocephalic, other (left head wound (shunt)covered, scant drainage) Eyes: nl lids, nl sclera ENMT: mucosa pink and moist, nl nasal mucosa & septum Neck: non-tender, no jvd, supple Respiratory: normal resp effort, no wheezing Cardiovascular: s1s2 Gastrointestinal: soft, non distended, non tender, umbilical hernia, no skin discoloration. No rebound or guarding Musculoskeletal: Right aka, stump clean. Moves extremities. No edema Neurological: nl mental status, delayed speech Lymphatics: No cervical or inguinal LNs Results Result Diagram: 05/21/1761805/21/17618 JEB LIRIANO NP May 21, 2017 15:27
[2017-05-21] MEDS ORDERED: NA POLYST SULFON 15 GM/60 ML BTL PO ONE (16:30)
--- NOTE | 2017-05-21 17:54 | RADRPT ---
PROCEDURE: XR Chest. CLINICAL INDICATION: Shortness of breath. TECHNIQUE: Single frontal view. COMPARISON: 05/15/2017. FINDINGS: There is a left arm PICC line with the tip in the cavoatrial junction region. Mild pulmonary edema i s improved. Mild atelectasis at the lung bases is also improved. The lungs are otherwise clear. The heart is enlarged. There is no pleural effusion. There is no pneumothorax. IMPRESSION: 1. Improved appearance of the lungs. 2. Cardiomegaly. 3. Left arm PICC line. RPTAT: QQ .Ric Walker MD, MD Date Time Electronically viewed and signed by .Ric Walker MD, MD on 05/21/2017 17:54 .R/
--- NOTE | 2017-05-21 18:54 | CONS ---
Date/Time of Note Date/Time of Note DATE: 05/21/17 TIME: 18:54 Assessment/Plan Assessment/Plan Additional Assessment/Plan IMPRESSION: 1. 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 2. Diabetes mellitus. 3. Leukocytosis, which is most probably related to the necrosis in the pancreas. Resolved 4. Cerebrovascular accident. 5. Anemia: h/h trending down 6. History of meningioma 7. Bipolar disorder 8. Expressive aphasia Plan 1. continue Creon 2. Advance diet per surgery 3. as patient tolerates PO and pancreatic enzyme normalized, GI ok to stop IVF if ok with primary. 4. consider lap joel to help prevent future episodes per surgery discretion 5. Consider involving PT/OT 6. as hgb trending down, will obtain stool for occult blood to r/o gib, transfuse prn hgb less than 7, increased protonix to bid dosing. No evidence of active bleeding at this point Patient is getting 1 unit of packed cell RBC transfusion Consultation Date/Type/Reason Admit Date/Time May 02, 2017 at 14:03 Initial Consult Date 05/03/17 Type of Consultation: cardiology Referring Provider: DOMINGO ARELLANO MD 24 HR Interval Summary Constitutional: improved Exam/Review of Systems Vital Signs Vitals Vital Signs Date Time Temp Pulse Resp B/P Pulse Ox O2 Delivery O2 Flow Rate FiO2 05/21/17 16:29 74 05/21/17 16:00 Nasal Cannula 1.0 05/21/17 15:59 17 157/74 97 05/21/17 11:30 98.4 Intake and Output 05/20/17 05/20/17 05/21/17 14:59 22:59 06:59 Intake Total 500 ml 220 ml Output Total 650 ml 600 ml Balance -150 ml -380 ml Exam Constitutional: alert, oriented, well developed Psych: nl mood/affect, no complaints Head: atraumatic, normocephalic Eyes: EOMI, PERRL, nl conjunctiva, nl lids, nl sclera ENMT: nl external ears & nose, nl lips & teeth, nl nasal mucosa & septum Neck: non-tender, supple Respiratory: clear to auscultation, normal air movement Cardiovascular: nl pulses, regular rate and rhythm Gastrointestinal: nl liver, spleen, non-tender, soft Musculoskeletal: nl extremities to inspection, nl gait and stance Extremities: normal pulses Neurological: COLOR CHECKER II-XII intact, nl mental status, nl speech, nl strength Skin: nl turgor, No rash or lesions Lymph: nl lymph nodes Results Result Diagram: 05/21/17 0619 05/21/17 1452 Results 24 hrs Laboratory Tests Test 05/20/17 20:32 05/21/17 02:19 05/21/17 06:19 05/21/17 06:20 Bedside Glucose 172 139 White Blood Count 5.6 Red Blood Count 2.65 L Hemoglobin 8.1 L Hematocrit 24.7 L Mean Corpuscular Volume 93.2 Mean Corpuscular Hemoglobin 30.6 Mean Corpuscular Hemoglobin Concent 32.8 Red Cell Distribution Width 12.9 Platelet Count 249 Mean Platelet Volume 10.8 H Neutrophils % 64.2 Lymphocytes % 23.9 Monocytes % 7.5 Eosinophils % 2.7 Basophils % 0.4 Nucleated Red Blood Cells % 0.0 Neutrophils # 3.6 Lymphocytes # 1.3 Monocytes # 0.4 Eosinophils # 0.2 Basophils # 0.0 Nucleated Red Blood Cells # 0.0 Sodium Level 140 Potassium Level 5.3 H Chloride Level 105 Carbon Dioxide Level 30 Anion Gap 10 Blood Urea Nitrogen 35 H Creatinine 2.31 H Glucose Level 141 Calcium Level 9.4 Phosphorus Level 5.1 H Magnesium Level 1.7 Urine Random Creatinine 36.19 Urine Random Sodium 120 H Urine Total Protein 83.0 H Test 05/21/17 08:01 05/21/17 12:18 05/21/17 14:52 05/21/17 16:57 Bedside Glucose 160 191 191 Potassium Level 5.5 H Medications Medications Current Medications Ondansetron HCl (Zofran Inj) 4 mg Q6H PRN IV NAUSEA AND/OR VOMITING Last administered on 05/09/17 12:58; Admin Dose 4 MG; Start 05/02/17 at 19:00 Lorazepam (Ativan) 0.5 mg Q2H PRN IV ANXIETY Last administered on 05/16/17 00 :17; Admin Dose 0.5 MG; Start 05/02/17 at 19:00 Hydromorphone HCl (Dilaudid) 1 mg Q4H PRN IV PAIN LEVEL 7-10 Last administered on 05/18/17 02:03; Admin Dose 1 MG; Start 05/02/17 at 23:00 Miscellaneous Information 1 ea NOTE XX ; Start 05/03/17 at 14:00 Glucose (Glutose) 15 gm Q15M PRN PO DECREASED GLUCOSE; Start 05/03/17 at 14:00 Glucose (Glutose) 22.5 gm Q15M PRN PO DECREASED GLUCOSE; Start 05/03/17 at 14: 00 Dextrose (D50w Syringe) 25 ml Q15M PRN IV DECREASED GLUCOSE Last administered on 05/11/17 17:25; Admin Dose 25 ML; Start 05/03/17 at 14:00 Dextrose (D50w Syringe) 50 ml Q15M PRN IV DECREASED GLUCOSE; Start 05/03/17 at 14:00 Glucagon (Glucagen) 1 mg Q15M PRN IM DECREASED GLUCOSE; Start 05/03/17 at 14:00 Glucose (Glutose) 15 gm Q15M PRN BUCCAL DECREASED GLUCOSE; Start 05/03/17 at 14 :00 Bisacodyl (Dulcolax Supp) 10 mg DAILY PRN [place] CONSTIPATION Last administered on 05/04/17 17:20; Admin Dose 10 MG; Start 05/03/17 at 17:00 Miscellaneous Information (Pending [facility] Order For Wound Care) This patient bustillo... PRN PRN XX WOUND CARE; Start 05/03/17 at 19:00 Metoprolol Tartrate (Lopressor) 50 mg Q6 PO Last administered on 05/21/17 16: 52; Admin Dose 50 MG; Start 05/07/17 at 12:00 Nystatin (Nystatin Powder) 1 applic BID TOP Last administered on 05/21/17 08: 17; Admin Dose 1 APPLIC; Start 05/10/17 at 10:00 Insulin Glargine (Lantus) 24 unit DAILY@08 SC Last administered on 05/21/17 08:09; Admin Dose 24 UNIT; Start 05/14/17 at 08:00 Hydralazine HCl (Apresoline) 10 mg Q4H PRN IV ELEVATED SYSTOLIC BP Last administered on 05/14/17 00:53; Admin Dose 10 MG; Start 05/14/17 at 01:00 Docusate Sodium (Colace) 200 mg BID PO Last administered on 05/21/17 08:18; Admin Dose 200 MG; Start 05/16/17 at 14:00 Senna (Senokot) 1 tab DAILY PO Last administered on 05/21/17 08:19; Admin Dose 1 TAB; Start 05/16/17 at 14:00 Zolpidem Tartrate (Ambien) 5 mg HS PRN PO INSOMNIA; Start 05/16/17 at 14:00 Quetiapine Fumarate (Seroquel) 150 mg QHS PO Last administered on 05/20/17 20 :35; Admin Dose 150 MG; Start 05/20/17 at 21:00 JOHNY MCCURDY MD May 21, 2017 18:54
[2017-05-21] MEDS: QUETIAPINE 100 MG TAB PO SCH (20:55)
[2017-05-22] VITALS (8 sets, daily range): BP systolic 136–165; BP diastolic 77–99; PULSE 60–78; RESP 17–21
[2017-05-22] MEDS: METOPROLOL 25 MG TAB PO SCH ×2 (05:57→12:39)
[2017-05-22 06:49] LABS: BASOPHILS % 0.5 % (0.0-2.0); EOSINOPHILS # 0.2 10^3/ul (0.0-0.5); HEMATOCRIT 28.3 % (42.0-52.0); HEMOGLOBIN 9.4 g/dl (14.0-18.0); LYMPHOCYTES # 1.4 10^3/ul (0.8-2.9); LYMPHOCYTES % 21.5 % (15.0-51.0); MEAN CORPUSCULAR HEMOGLOBIN 30.2 pg (29.0-33.0); MEAN CORPUSCULAR HGB CONC 33.2 g/dl (32.0-37.0); MEAN PLATELET VOLUME 10.9 fl (7.4-10.4); MONOCYTE # 0.5 10^3/ul (0.3-0.9); NEUTROPHIL # 4.4 10^3/ul (1.6-7.5); NEUTROPHILS % 65.9 % (39.0-77.0); PLATELET COUNT 239 10^3/UL (140-415); RED BLOOD COUNT 3.11 10^6/ul (4.70-6.10); RED CELL DISTRIBUTION WIDTH 13.1 % (11.5-14.5); WHITE BLOOD COUNT 6.7 10^3/ul (4.8-10.8)
[2017-05-22 07:19] LABS: CALCIUM 9.1 mg/dl (8.4-10.2); CREATININE 2.09 mg/dl (0.61-1.24); MAGNESIUM 1.6 mg/dl (1.7-2.5); PHOSPHORUS 5.6 mg/dl (2.5-4.9); POTASSIUM 4.8 mmol/L (3.5-5.1)
--- NOTE | 2017-05-22 07:45 | PN ---
Date/Time of Note Date/Time of Note DATE: 05/21/17 TIME: 13:44 Assessment/Plan Lines/Catheters IV Catheter Type (from [facility]): PICC Line High in Place (from [facility]): No Assessment/Plan Assessment/Plan [facility] Progress Note (Late Entry) Date of Service: 05/21/2017 Location of Service: Tele 5th floor Today's Assessment & Plan: Overall stable. Abd appears benign. No indications of major postoperative complications or wound problems. No indication for acute surgical intervention. Patient okay from my standpoint to discharge home if medically cleared. Previous assessment that applies today: A very-pleasant but unfortunate 67-year-old gentleman with multiple comorbidities including DM2 and prior CVA among others (please see below), presenting with acute pancreatitis complicated by necrosis but without obvious evidence of infected necrosis. Etiology of pancreatitis is likely gallstone related. Multiple comorbidities, including malnutrition, DM2, CVA, renal insufficiency, institutionalized status, amputation, etc. also exists. With above assessment, I've recommended the followin. Okay to discharge from my standpoint if medically cleared 2. Long-term plan would be inpatient or outpatient lap joel to help prevent future episodes 3. Continue Creon and manage as an outpatient Thank you very much for having me involved in the care of this very pleasant patient and I'm certain wonderful family. If you have any questions, please feel free to contact me at [phone]. Nature of presenting problem: High severity Please note that, given the extensive number of diagnoses or management options , the extensive amount and/or complexity of data needed to be reviewed, and high risk of complications and/or morbidity or mortality, this qualifies as high complexity type of decision-making. Disclaimers: 1. Inadvertent spelling and grammatical errors are likely due to electronic health record (EHR)/dictation software used and do not reflect on the quality of delivered patient care. 2. The electronic timestamp recorded on this note does not necessarily reflect the actual date and time of the visit or the service. 3. Portions of this note may have been created through electronic templates and computer algorithms that might bring in information either from the system or from other physicians and providers. Please note that such information may or may not contain errors, the occurrence of which are outside of my control. In general (but not always) this happens either in the beginning or at the end of the note. The portion of the note that I have created are generally done in 1 continuous block of text, flanked at the beginning and at the end by " ", and entered into one field in the EHR. 4. There may be other unanticipated errors in the note that are outside of my control. I can only attest to the portions of the note that I have created. Updated clinical summary: A very-pleasant but unfortunate 67-year-old gentleman with multiple comorbidities including DM2 and prior CVA among others (please see below), presenting with acute pancreatitis complicated by necrosis but without obvious evidence of infected necrosis. Etiology of pancreatitis is likely gallstone related. Comorbidities: 1. BMI 29 2. Diabetes mellitus, complicated by vascular disease (s/p R BKA) 3. CVA with right-sided weakness 4. Dyslipidemia 5. Seizure disorder 6. Bipolar disorder 7. History of CKD 8. Hypertension 9. Malnutrition (Albumin 2.3 VPH 05/10/17) 10. Expressive aphasia 11. Depression 12. Left scalp wound 13. Meningioma resection 2016 (Dr. Christian) 14. Rehab patient ([facility]) Subjective: No major events or complaints; reported - abd pain and under control with medications; no n/v/d; no sob or cp; + bowel activity; + flatus; + BM and normal ;- activity; tolerated regular low-fat diet Objective: Vitals: See below Exam: GENERAL: On exam, the patient was laying in bed and appeared to be comfortable and in no acute distress. ABDOMEN: Soft, nontender and nondistended. There are no peritoneal signs or guarding. SKIN: Skin appears to be pink and feels warm to touch. NEUROLOGIC: Patient is awake, alert and followed commands appropriately. Exam/Review of Systems Vital Signs Vitals Vital Signs Date Time Temp Pulse Resp B/P Pulse Ox O2 Delivery O2 Flow Rate FiO2 05/22/17 07:21 98.2 67 17 165/77 95 05/21/17 20:00 Nasal Cannula 3.0 Intake and Output 05/21/17 05/21/17 05/22/17 15:00 23:00 07:00 Intake Total 800 ml 630 ml Output Total 1300 ml 800 ml Balance -500 ml -170 ml Results Result Diagram: 05/22/17 0608 05/22/17 0608 CARA ROY M.D. May 22, 2017 07:45
[2017-05-22] MEDS: SENNA TAB PO SCH (08:13)
[2017-05-22] MEDS: PANTOPRAZOLE (EC) 40 MG TAB PO SCH (08:13)
[2017-05-22] MEDS: CREON (24K-76K-120K) 1 CAP PO SCH ×2 (08:13→12:38)
[2017-05-22] MEDS: DOCUSATE SODIUM 100 MG CAP PO SCH (08:20)
[2017-05-22] MEDS: hydrALAzine 20 MG INJ IV PRN (08:21)
[2017-05-22] MEDS: INSULIN GLARGINE [LANtus] 3 ML PEN SC SCH (08:22)
[2017-05-22] MEDS: INSULIN ASPART [NOVOLOG] 3 ML PEN SC SCH ×4 (08:23→12:38)
[2017-05-22] MEDS: NYSTATIN 30 GM POWDER BTL TOP SCH (08:28)
[2017-05-22] MEDS: BALSAM PERU/CASTOR OIL 60 GM TUBE TOP SCH (08:28)
[2017-05-22] MEDS ORDERED: MAGNESIUM SULFATE 1 GM/D5W 100 ML IVPB ONE (08:30)
[2017-05-22] MEDS ORDERED: MAGNESIUM SULFATE 2 GM/50 ML 50 ML IVPB ONE (08:30)
[2017-05-22] MEDS ORDERED: AMLODIPINE 5 MG TAB PO ONE (08:30)
--- NOTE | 2017-05-22 08:31 | PDOCDIS ---
Discharge Instructions CONDITION Patient Condition: Stable HOME CARE INSTRUCTIONS: Special Diet: mechanical soft 2gNa ADA 1800 FOLLOW UP/APPOINTMENTS Follow-up Plan see reconciliation DOMINGO ARELLANO MD May 22, 2017 08:31
--- NOTE | 2017-05-22 08:38 | CONS ---
Date/Time of Note Date/Time of Note DATE: 05/22/17 TIME: 08:36 Consult Date/Type/Reason Admit Date/Time May 02, 2017 at 14:03 Initial Consult Date 05/03/17 Type of Consultation: cardiology Ordering Provider: DOMINGO VINCENT MD Subjective CARDIOLOGY FOLLOW UP NOTE: S: d/w staff and rhythm was reviewed. pt remains in NSR . no afib seen BP has been elevated now. he denies abdominal pain to me. he denies any cp or sob to me. he is able to eat O: General: in no distress HEENT: NC/AT. pupils are equal. round. NECK: NO JVD. no stridor. CV: RRR . systolic murmur; no gallop or rubs. PULM: no wheezing or rhonchi. GI: mild tenderness. no rebound. no guarding Extremity: s/p R LE amputation. neuro: awake and alert. with right sided weakness Psych: calm and pleasant rectal: deferred : normal male ECHO Personally reviewed: 1. Hyperdynamic left ventricular systolic function. Normal left ventricular cavity size. Mild concentric left ventricular hypertrophy. Ejection fraction is visually estimated at 70 %. Abnormal Diastolic Function. 2. The left atrium is normal in size. 3. Mild mitral leaflet calcification. Mild mitral annular calcification. Trace mitral regurgitation. 4. No significant aortic stenosis or insufficiency. Aortic cusps appear mildly calcified. Non coronary cusp appears moderately calcified. 5. Normal appearance of the tricuspid valve. Estimated peak PA systolic pressure 56 mmHg. There is mild tricuspid regurgitation. 6. The IVC is not well visualized. Objective Vital Signs Date Time Temp Pulse Resp B/P Pulse Ox O2 Delivery O2 Flow Rate FiO2 05/22/17 08:32 75 05/22/17 07:21 98.2 17 165/77 95 05/21/17 20:00 Nasal Cannula 3.0 Intake and Output 05/21/17 05/21/17 05/22/17 15:00 23:00 07:00 Intake Total 800 ml 630 ml Output Total 1300 ml 800 ml Balance -500 ml -170 ml Results/Medications Result Diagram: 05/22/17 0608 05/22/17 0608 Results 24 hrs Laboratory Tests Test 05/21/17 12:18 05/21/17 14:52 05/21/17 16:57 05/21/17 20:58 Bedside Glucose 191 191 222 H Potassium Level 5.5 H Test 05/22/17 06:08 05/22/17 08:11 White Blood Count 6.7 Red Blood Count 3.11 L Hemoglobin 9.4 L Hematocrit 28.3 L Mean Corpuscular Volume 91.0 Mean Corpuscular Hemoglobin 30.2 Mean Corpuscular Hemoglobin Concent 33.2 Red Cell Distribution Width 13.1 Platelet Count 239 Mean Platelet Volume 10.9 H Neutrophils % 65.9 Lymphocytes % 21.5 Monocytes % 8.0 Eosinophils % 3.0 Basophils % 0.5 Nucleated Red Blood Cells % 0.0 Neutrophils # 4.4 Lymphocytes # 1.4 Monocytes # 0.5 Eosinophils # 0.2 Basophils # 0.0 Nucleated Red Blood Cells # 0.0 Sodium Level 142 Potassium Level 4.8 Chloride Level 104 Carbon Dioxide Level 28 Anion Gap 15 Blood Urea Nitrogen 37 H Creatinine 2.09 H Glucose Level 138 Calcium Level 9.1 Phosphorus Level 5.6 H Magnesium Level 1.6 L Bedside Glucose 144 Medications Current Medications Ondansetron HCl (Zofran Inj) 4 mg Q6H PRN IV NAUSEA AND/OR VOMITING Last administered on 05/09/17 12:58; Admin Dose 4 MG; Start 05/02/17 at 19:00 Lorazepam (Ativan) 0.5 mg Q2H PRN IV ANXIETY Last administered on 05/16/17 00 :17; Admin Dose 0.5 MG; Start 05/02/17 at 19:00 Hydromorphone HCl (Dilaudid) 1 mg Q4H PRN IV PAIN LEVEL 7-10 Last administered on 05/18/17 02:03; Admin Dose 1 MG; Start 05/02/17 at 23:00 Miscellaneous Information 1 ea NOTE XX ; Start 05/03/17 at 14:00 Glucose (Glutose) 15 gm Q15M PRN PO DECREASED GLUCOSE; Start 05/03/17 at 14:00 Glucose (Glutose) 22.5 gm Q15M PRN PO DECREASED GLUCOSE; Start 05/03/17 at 14: 00 Dextrose (D50w Syringe) 25 ml Q15M PRN IV DECREASED GLUCOSE Last administered on 05/11/17 17:25; Admin Dose 25 ML; Start 05/03/17 at 14:00 Dextrose (D50w Syringe) 50 ml Q15M PRN IV DECREASED GLUCOSE; Start 05/03/17 at 14:00 Glucagon (Glucagen) 1 mg Q15M PRN IM DECREASED GLUCOSE; Start 05/03/17 at 14:00 Glucose (Glutose) 15 gm Q15M PRN BUCCAL DECREASED GLUCOSE; Start 05/03/17 at 14 :00 Bisacodyl (Dulcolax Supp) 10 mg DAILY PRN NV CONSTIPATION Last administered on 05/04/17 17:20; Admin Dose 10 MG; Start 05/03/17 at 17:00 Miscellaneous Information (Pending Santyl Order For Wound Care) This patient bustillo... PRN PRN XX WOUND CARE; Start 05/03/17 at 19:00 Metoprolol Tartrate (Lopressor) 50 mg Q6 PO Last administered on 05/22/17 05: 57; Admin Dose 50 MG; Start 05/07/17 at 12:00 Nystatin (Nystatin Powder) 1 applic BID TOP Last administered on 05/22/17 08: 28; Admin Dose 1 APPLIC; Start 05/10/17 at 10:00 Insulin Glargine (Lantus) 24 unit DAILY@08 SC Last administered on 05/22/17 08:22; Admin Dose 24 UNIT; Start 05/14/17 at 08:00 Hydralazine HCl (Apresoline) 10 mg Q4H PRN IV ELEVATED SYSTOLIC BP Last administered on 05/22/17 08:21; Admin Dose 10 MG; Start 05/14/17 at 01:00 Docusate Sodium (Colace) 200 mg BID PO Last administered on 05/22/17 08:20; Admin Dose 200 MG; Start 05/16/17 at 14:00 Senna (Senokot) 1 tab DAILY PO Last administered on 05/22/17 08:13; Admin Dose 1 TAB; Start 05/16/17 at 14:00 Zolpidem Tartrate (Ambien) 5 mg HS PRN PO INSOMNIA; Start 05/16/17 at 14:00 Quetiapine Fumarate 150 mg 150 mg QHS PO Last administered on 05/21/17 20:55 ; Admin Dose 150 MG; Start 05/20/17 at 21:00 Magnesium Sulfate (Magnesium Sulfate 2 Gm/50 ml) 50 ml @ 25 mls/hr ONCE ONCE IVPB ; Start 05/22/17 at 08:30; Stop 05/22/17 at 10:29 Assessment/Plan Chief Complaint/Hosp Course 1. Sinus tachycardia secondary to below: it has resolved now with treatment of sepsis and on betablocker 2. S/P sepsis and septic shock: BP has improved now 3. Severe pancreatitis: improved now. 4. Diabetes: will defer to IM 7. Severe metabolic acidosis: improved now 8. HX of Hypertension: under control now 9. History of dyslipidemia. 10. History of RLE amputation. 11. History of craniotomy and meningioma, status post craniotomy. 12. History of seizure disorder. 13. JESUSITA on CKD. : 14. hypo Na: improved now. 15. mildly abnormal trop due to above 16. HTN: under control now. RECOMMENDATIONS: Antibiotic is managed as per infectious disease and Dr. Vincent. cont Insulin. will defer to IM cont metoprolol . norvasc was added as well. adjust lytes prn f.u with renal consultants rec regarding renal failure. f/u surgery and GI rec THANK YOU CARMEN MELO MD [facility]. Problems: CARMEN MELO MD May 22, 2017 08:38
--- NOTE | 2017-05-22 08:38 | PN ---
DATE: 05/21/2017 The patient's kidney function has worsened from a creatinine of 2.0 to 2.3. In addition, the patien t is hyperkalemic at 5.3. Repeat BMP was just ordered. The patient's H and H still remains the master e at a hemoglobin of 8.1. The patient is complaining of mild shortness of breath, remains on nasal cannula. PHYSICAL EXAMINATION: VITAL SIGNS: Temperature 98.4, pulse , respirations 17, blood pressure 148/78, saturation 95% on 3 liters nasal cannula. GENERAL: The patient is in no acute distress. The patient is pale. CARDIOVASCULAR: S1 and S2. LUNGS: Decreased bilaterally. ABDOMEN: Soft, distended. No pain. EXTREMITIES: Right AKA. Lower extremity trace edema. LABORATORY DATA: White count is 5.6, hemoglobin 8.1, hematocrit 24.7, platelet count 249, neutrophi l count 64%, 24%. Sodium 140, potassium 5.3, chloride 105, bicarbonate 30, BUN is 35, creatin ine 2.31, glucose of 191 and 160. MEDICATIONS: 1. Seroquel 150 at night. 2. Protonix 40 mg daily. 3. Creon 1 tab q.a.c. meals. 4. Colace 200 b.i.d. 5. Senna 1 tab daily. 6. Ambien 5 mg at bedtime p.r.n. 7. Insulin NovoLog 6 units q.a.c. 8. Lantus 24 units daily. 9. Hydralazine p.r.n. 10. Insulin as per sliding scale. 11. Nystatin b.i.d. 12. Xopenex every 4 hours p.r.n. 13. Lopressor 50 q.6 hours. 14. Hypoglycemia protocol. 15. Dilaudid p.r.n. 16. Zofran p.r.n. 17. DuoNeb p.r.n. 18. Ativan p.r.n. ASSESSMENT AND PLAN: This 67-year-old male with history of meningioma status post craniot evangelista, CKD, right above the knee amputation presented with sepsis, acute renal failure, respiratory fa ilure, severe pancreatitis. 1. Respiratory. Slight shortness of breath. Will repeat chest x-ray and titrate O2 if possible an d we will follow. Monitor for fluid overload state. 2. Cardiovascular. Patient on beta blockers. Blood pressure is stable. 3. Anemia. The patient with symptomatic shortness of breath. Will transfuse the patient 1 unit of PRBC and start the patient on Epogen. 4. Pancreatitis. Continue Creon. Diet was advanced. Will monitor. 5. Psychiatric disorder. Continue Seroquel. 6. Encephalopathy, back to baseline. 7. Disposition. Hopefully soon. 8. Acute on chronic renal insufficiency. Will transfuse him 1 unit of PRBC and monitor kidney func tion. Follow up potassium. May prescribe Kayexalate. 9. Diabetes mellitus. Glucose levels are in the 100s. Continue current insulin regimen. 10. Infectious disease. Again, off antibiotics, currently afebrile with normal white count. DISPOSITION: Soon. We will follow. Patient can be transferred to med-surg. Dictated By: DOMINGO GILMORE/DAVIE Conf#: [id number] DID#: [id number]
--- NOTE | 2017-05-22 09:11 | PN ---
DATE: 05/22/2017 SUBJECTIVE: Yesterday received 1 transfusion of 1 unit of PRBC. The patient also received Kayexala te. No other events overnight. OBJECTIVE: VITAL SIGNS: Blood pressure is 165/77, respirations 17, pulse 67, temperature 98.2. HEENT: Head is normocephalic. NECK: Supple. HEART: Regular rate. LUNGS: Show diminished breath sounds at base. ABDOMEN: Soft, nontender to palpation. No rebound or guarding. EXTREMITIES: Negative for clubbing, cyanosis. No edema, positive BKA. DERMATOLOGIC: No rashes. MUSCULOSKELETAL: No joint effusions. NEUROLOGIC: No change in exam. MEDICATIONS: The patient's medications have been reviewed. LABORATORY DATA: Sodium 142, potassium 4.8, BUN 37, creatinine 2.09, calcium 5.6, magnesium 1.6. IMAGING: Chest x-ray shows improved appearance of the lungs, cardiomegaly. ASSESSMENT AND PLAN: 1. Nonoliguric acute kidney injury on top of chronic kidney disease with previous baseline creatini ne 1.5 to 2.5 mg/dL. Etiology of acute kidney injury is secondary to acute tubular necrosis. Renal function initially improved; however, has declined over the last several days. This is likely from hemodynamics. The patient's creatinine has improved over the last 24 hours after volume expansion with a blood transfusion. At this point, continue to monitor. Continue current oral intake. 2. Hyperkalemia secondary to acute kidney injury, possible intravascular volume depletion. The pat ient's potassium levels have normalized after receiving Kayexalate and IV fluids. Continue to monit or. 3. Mineral bone disorder. Continue to monitor calcium and phosphorus levels. 4. Hypomagnesemia. Replete with magnesium sulfate. 5. Anemia. Monitor H and H. 6. Severe sepsis status post shock, clinically improving. Continue to monitor. 7. Pancreatitis, tolerating p.o. 8. Diabetes. Continue current insulin regimen. 9. Acute encephalopathy, mental status improving. Continue to monitor. Dictated By: GEN VALENZUELA/DAVIE Conf#: [id number] DID#: [id number]
--- NOTE | 2017-05-22 09:12 | PN ---
Date/Time of Note Date/Time of Note DATE: 05/22/17 TIME: 09:10 Assessment/Plan Lines/Catheters IV C[facility]ter Type (from [facility]): PICC Line High in Place (from [facility]): No Assessment/Plan Assessment/Plan [facility] Progress Note Date of Service: 05/22/2017 Location of Service: Tele 5th floor Today's Assessment & Plan: Overall stable. Abd appears benign. No indications of major postoperative complications or wound problems. No indication for acute surgical intervention. Patient okay from my standpoint to discharge home if medically cleared. D/w Dr. Vincent. Also d/w patient and answered all questions. Patient appeared to understand and agreed. No family in the room. Previous assessment that applies today: A very-pleasant but unfortunate 67-year-old gentleman with multiple comorbidities including DM2 and prior CVA among others (please see below), presenting with acute pancreatitis complicated by necrosis but without obvious evidence of infected necrosis. Etiology of pancreatitis is likely gallstone related. Multiple comorbidities, including malnutrition, DM2, CVA, renal insufficiency, institutionalized status, amputation, etc. also exists. With above assessment, I've recommended the followin. Okay to discharge from my standpoint if medically cleared 2. Long-term plan would be inpatient or outpatient lap joel to help prevent future episodes 3. Continue Creon and manage as an outpatient Thank you very much for having me involved in the care of this very pleasant patient and I'm certain wonderful family. If you have any questions, please feel free to contact me at [phone]. Nature of presenting problem: High severity Please note that, given the extensive number of diagnoses or management options , the extensive amount and/or complexity of data needed to be reviewed, and high risk of complications and/or morbidity or mortality, this qualifies as high complexity type of decision-making. Disclaimers: 1. Inadvertent spelling and grammatical errors are likely due to electronic health record (EHR)/dictation software used and do not reflect on the quality of delivered patient care. 2. The electronic timestamp recorded on this note does not necessarily reflect the actual date and time of the visit or the service. 3. Portions of this note may have been created through electronic templates and computer algorithms that might bring in information either from the system or from other physicians and providers. Please note that such information may or may not contain errors, the occurrence of which are outside of my control. In general (but not always) this happens either in the beginning or at the end of the note. The portion of the note that I have created are generally done in 1 continuous block of text, flanked at the beginning and at the end by " ", and entered into one field in the EHR. 4. There may be other unanticipated errors in the note that are outside of my control. I can only attest to the portions of the note that I have created. Updated clinical summary: A very-pleasant but unfortunate 67-year-old gentleman with multiple comorbidities including DM2 and prior CVA among others (please see below), presenting with acute pancreatitis complicated by necrosis but without obvious evidence of infected necrosis. Etiology of pancreatitis is likely gallstone related. Comorbidities: 1. BMI 29 2. Diabetes mellitus, complicated by vascular disease (s/p R BKA) 3. CVA with right-sided weakness 4. Dyslipidemia 5. Seizure disorder 6. Bipolar disorder 7. History of CKD 8. Hypertension 9. Malnutrition (Albumin 2.3 VPH 05/10/17) 10. Expressive aphasia 11. Depression 12. Left scalp wound 13. Meningioma resection 2016 (Dr. Christian) 14. Rehab patient ([facility]) Subjective: No major events or complaints; reported - abd pain and under control with medications; no n/v/d; no sob or cp; + bowel activity; + flatus; + BM and normal ;- activity; tolerated regular low-fat diet Objective: Vitals: See below Exam: GENERAL: On exam, the patient was laying in bed and appeared to be comfortable and in no acute distress. Eating a regular breakfast. ABDOMEN: Soft, nontender and nondistended. There are no peritoneal signs or guarding. SKIN: Skin appears to be pink and feels warm to touch. NEUROLOGIC: Patient is awake, alert and followed commands appropriately. Exam/Review of Systems Vital Signs Vitals Vital Signs Date Time Temp Pulse Resp B/P Pulse Ox O2 Delivery O2 Flow Rate FiO2 05/22/17 08:32 75 05/22/17 08:32 Nasal Cannula 2.0 05/22/17 07:21 98.2 17 165/77 95 Intake and Output 05/21/17 05/21/17 05/22/17 15:00 23:00 07:00 Intake Total 800 ml 630 ml Output Total 1300 ml 800 ml Balance -500 ml -170 ml Results Result Diagram: 05/22/17 0608 05/22/17 0608 CARA ROY M.D. May 22, 2017 09:12
--- NOTE | 2017-05-22 10:05 | DS ---
DATE OF ADMISSION: 05/02/2017 DATE OF DISCHARGE: 05/22/2017 REASON FOR ADMISSION: Acute pancreatitis, abdominal pain, sepsis and DKA. HOSPITAL COURSE: The patient is a 67-year-old male with history of diabetes mellitus type 2, CVA, right-sided weakness, expressive aphasia, status post right AKA, seizure disorder, dyslipid emia, depression who previously was admitted under the care of [facility] on 013 secondary to left scalp wound status post history of meningioma resection a year prior. Patient currently resides at [facility]. He was noted to have increased abdominal pain, t achycardic and hypotensive. He was rushed to [facility] Emergency Department. The patient 's white count was elevated at 18.9. He was noted to have bandemia, renal failure, glucose of 457, lipase remarkably high at 24,000 suggestive of pancreatitis. CAT scan of the abdomen and pelvis odin wed diffusely enlarged pancreas with surrounding extensive inflammatory changes consistent with acut e pancreatitis. Also, there is a small amount of fluid and inflammatory changes along with ____ wit h no loculated peripancreatic fluid collection. There is an indeterminate large left renal lesion m easuring 10-11 cm which demonstrated positive wall calcification, interval density, recommend CT wit h MRI with contrast ____ renal mass protocol. The patient was placed on aggressive IV fluid hydrati on, insulin drip, potassium supplements as needed. Initially he was tachypneic, almost intubated, w e were able to put him on BiPAP. Multiple physicians were consulted including Dr. Joey Garcia, car diology, Dr. Luis M Marie, the market research consultant, Dr. Jerome Marie, the surgical supply assistant, Dr. Yuko Rebolledo, the hepatobiliary specialist, Dr. Masterson, the infectious disease specialist, Dr. Whitten and Dr. Baumann, the pulmonologists. He was placed initially on broad spectrum antibiotics for possib le intraabdominal infection related to his pancreatitis. The patient had worsening condition after we advanced his diet, so then he was kept n.p.o. At a later time we were able to address his diet b ack again with ____ success. Also, patient was seen by Dr. Gallego and Dr. Frantz Alvarez, the GI specia lists. He also required transfusion during his stay secondary to shortness of breath and worsening anemia. Also, we adjusted his insulin throughout his stay and blood pressure medications. The shara ent is doing better, diet is advanced, patient is more coherent and he initially was slightly more e ncephalopathic and difficult to understand. DISCHARGE MEDICATIONS: The patient will be discharged with the following medications: 1. DuoNeb p.r.n. for shortness of breath. 2. ____ applied as directed. 3. Dulcolax daily p.r.n. 4. Colace 100-200 b.i.d. 5. Insulin aspart per sliding scale. 6. Insulin NovoLog 6 units before every meal. 7. Insulin Lantus 24 units daily. 8. Xopenex every 4 hours p.r.n. 9. Creon take 3 times a day with meals. 10. Lopressor 50 mg every 6 hours. 11. Treatment of hypoglycemia as directed. 12. Nystatin b.i.d. 13. Zofran 4 mg p.o. q.4h. p.r.n. for nausea and vomiting. 14. Protonix 40 mg daily. 15. Seroquel 150 at bedtime. 16. Senna 1 tablet daily. 17. Zolpidem 5 mg at bedtime p.r.n. for insomnia 18. I will add amlodipine 5 mg p.o. every day. FINAL DIAGNOSES: 1. Acute respiratory failure. 2. Sepsis. 3. Diabetic ketoacidosis. 4. Chronic kidney disease. 5. Acute pancreatitis, severe with evidence of pancreatic necrosis. 6. Diabetes mellitus. 7. Acute encephalopathy. 8. History of cerebrovascular accident with baseline mild expressive aphasia. 9. Acute renal failure, severe with creatinine of 5.5 on presentation. 10. Atherosclerotic cardiovascular disease. 11. Renal mass, possible cyst. 12. Urinary tract infection, organism Beatrice albicans. 13. Anemia requiring transfusion. 14. Constipation. 15. Hypertension. 16. History of meningioma status post resection. 17. Left scalp wound. DIET: Soft mechanical 2 g sodium ADA diet. Cause of pancreatitis may be due to Januvia, gallstones versus other. Pleural effusion and congesti ve heart failure more of the diastolic dysfunction. History of nonobstructing nephrolithiasis. The patient will be followed at the nursing facility at [facility]. We will obtain la bs on 05/26/2017. Dictated By: DOMINGO GILMORE/DAVIE Conf#: [id number] DID#: [id number]
--- NOTE | 2017-05-22 10:52 | CONS ---
Date/Time of Note Date/Time of Note DATE: 05/22/17 TIME: 10:52 Assessment/Plan Assessment/Plan Additional Assessment/Plan IMPRESSION: 1. 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 2. Diabetes mellitus. 3. Leukocytosis, which is most probably related to the necrosis in the pancreas. Resolved 4. Cerebrovascular accident. 5. Anemia: h/h trending down 6. History of meningioma 7. Bipolar disorder 8. Expressive aphasia Plan 1. continue Creon 2. Advance diet per surgery 3. as patient tolerates PO and pancreatic enzyme normalized, GI ok to stop IVF if ok with primary. 4. consider lap joel to help prevent future episodes per surgery discretion 5. Consider involving PT/OT 6. as hgb trending down, will obtain stool for occult blood to r/o gib, transfuse prn hgb less than 7, increased protonix to bid dosing. No evidence of active bleeding at this point Status post packed cell transfusion 1 unit Consultation Date/Type/Reason Admit Date/Time May 02, 2017 at 14:03 Initial Consult Date 05/03/17 Type of Consultation: cardiology Referring Provider: DOMINGO ARELLANO MD 24 HR Interval Summary Constitutional: improved, no complaints Exam/Review of Systems Vital Signs Vitals Vital Signs Date Time Temp Pulse Resp B/P Pulse Ox O2 Delivery O2 Flow Rate FiO2 05/22/17 08:32 75 05/22/17 08:32 Nasal Cannula 2.0 05/22/17 07:21 98.2 17 165/77 95 Intake and Output 05/21/17 05/21/17 05/22/17 15:00 23:00 07:00 Intake Total 800 ml 630 ml Output Total 1300 ml 800 ml Balance -500 ml -170 ml Exam Constitutional: alert, oriented, well developed Psych: nl mood/affect, no complaints Head: atraumatic, normocephalic Eyes: EOMI, PERRL, nl conjunctiva, nl lids, nl sclera ENMT: nl external ears & nose, nl lips & teeth, nl nasal mucosa & septum Neck: non-tender, supple Respiratory: clear to auscultation, normal air movement Cardiovascular: nl pulses, regular rate and rhythm Gastrointestinal: nl liver, spleen, non-tender, soft Musculoskeletal: nl extremities to inspection, nl gait and stance Extremities: normal pulses Neurological: SUGAR CONTROLLER II-XII intact, nl mental status, nl speech, nl strength Skin: nl turgor, No rash or lesions Lymph: nl lymph nodes Results Result Diagram: 05/22/17 0608 05/22/17 0608 Results 24 hrs Laboratory Tests Test 05/21/17 12:18 05/21/17 14:52 05/21/17 16:57 05/21/17 20:58 Bedside Glucose 191 191 222 H Potassium Level 5.5 H Test 05/22/17 06:08 05/22/17 08:11 White Blood Count 6.7 Red Blood Count 3.11 L Hemoglobin 9.4 L Hematocrit 28.3 L Mean Corpuscular Volume 91.0 Mean Corpuscular Hemoglobin 30.2 Mean Corpuscular Hemoglobin Concent 33.2 Red Cell Distribution Width 13.1 Platelet Count 239 Mean Platelet Volume 10.9 H Neutrophils % 65.9 Lymphocytes % 21.5 Monocytes % 8.0 Eosinophils % 3.0 Basophils % 0.5 Nucleated Red Blood Cells % 0.0 Neutrophils # 4.4 Lymphocytes # 1.4 Monocytes # 0.5 Eosinophils # 0.2 Basophils # 0.0 Nucleated Red Blood Cells # 0.0 Sodium Level 142 Potassium Level 4.8 Chloride Level 104 Carbon Dioxide Level 28 Anion Gap 15 Blood Urea Nitrogen 37 H Creatinine 2.09 H Glucose Level 138 Calcium Level 9.1 Phosphorus Level 5.6 H Magnesium Level 1.6 L Bedside Glucose 144 Medications Medications Current Medications Ondansetron HCl (Zofran Inj) 4 mg Q6H PRN IV NAUSEA AND/OR VOMITING Last administered on 05/09/17 12:58; Admin Dose 4 MG; Start 05/02/17 at 19:00 Lorazepam (Ativan) 0.5 mg Q2H PRN IV ANXIETY Last administered on 05/16/17 00 :17; Admin Dose 0.5 MG; Start 05/02/17 at 19:00 Hydromorphone HCl (Dilaudid) 1 mg Q4H PRN IV PAIN LEVEL 7-10 Last administered on 05/18/17 02:03; Admin Dose 1 MG; Start 05/02/17 at 23:00 Miscellaneous Information 1 ea NOTE XX ; Start 05/03/17 at 14:00 Glucose (Glutose) 15 gm Q15M PRN PO DECREASED GLUCOSE; Start 05/03/17 at 14:00 Glucose (Glutose) 22.5 gm Q15M PRN PO DECREASED GLUCOSE; Start 05/03/17 at 14: 00 Dextrose (D50w Syringe) 25 ml Q15M PRN IV DECREASED GLUCOSE Last administered on 05/11/17 17:25; Admin Dose 25 ML; Start 05/03/17 at 14:00 Dextrose (D50w Syringe) 50 ml Q15M PRN IV DECREASED GLUCOSE; Start 05/03/17 at 14:00 Glucagon (Glucagen) 1 mg Q15M PRN IM DECREASED GLUCOSE; Start 05/03/17 at 14:00 Glucose (Glutose) 15 gm Q15M PRN BUCCAL DECREASED GLUCOSE; Start 05/03/17 at 14 :00 Bisacodyl (Dulcolax Supp) 10 mg DAILY PRN AL CONSTIPATION Last administered on 05/04/17 17:20; Admin Dose 10 MG; Start 05/03/17 at 17:00 Miscellaneous Information ([facility]ending [facility]) This patient bustillo... PRN PRN XX WOUND CARE; Start 05/03/17 at 19:00 Metoprolol Tartrate (Lopressor) 50 mg Q6 PO Last administered on 05/22/17 05: 57; Admin Dose 50 MG; Start 05/07/17 at 12:00 Nystatin (Nystatin Powder) 1 applic BID TOP Last administered on 05/22/17 08: 28; Admin Dose 1 APPLIC; Start 05/10/17 at 10:00 Insulin Glargine (Lantus) 24 unit DAILY@08 SC Last administered on 05/22/17 08:22; Admin Dose 24 UNIT; Start 05/14/17 at 08:00 Hydralazine HCl (Apresoline) 10 mg Q4H PRN IV ELEVATED SYSTOLIC BP Last administered on 05/22/17 08:21; Admin Dose 10 MG; Start 05/14/17 at 01:00 Docusate Sodium (Colace) 200 mg BID PO Last administered on 05/22/17 08:20; Admin Dose 200 MG; Start 05/16/17 at 14:00 Senna (Senokot) 1 tab DAILY PO Last administered on 05/22/17 08:13; Admin Dose 1 TAB; Start 05/16/17 at 14:00 Zolpidem Tartrate (Ambien) 5 mg HS PRN PO INSOMNIA; Start 05/16/17 at 14:00 Quetiapine Fumarate (Seroquel) 150 mg QHS PO Last administered on 05/21/17t 20 :55; Admin Dose 150 MG; Start 05/20/17 at 21:00 JOHNY MCCURDY MD May 22, 2017 10:52
[2017-05-22 14:01] LABS: MICROALBUMIN 21.8 mg/dL
--- NOTE | 2017-05-22 14:03 | PN ---
Date/Time of Note Date/Time of Note DATE: 05/22/17 TIME: 14:02 Assessment/Plan Lines/Catheters IV Catheter Type (from [facility]): PICC Line High in Place (from [facility]): No Assessment/Plan Chief Complaint/Hosp Course 1. Abdominal pain 2nd pancreatitis with ileus. Improving leukocytosis with pancreatic necrosis. No large body of fluid collections. had episode of abdominal pain, on creon; currently without pain, +bowel function, tolerating diet; -may be discharged per medical team. -no abx per HBS 2. Sepsis with lactic acidosis; +Urine cx, ? other. Leukocytosis normalized -supportive -as above 3. BMI 29 -eventual diet/exercise optimization 4. ARF: +uop -per renal -judicious fluids -avoid nephrotoxic meds 5. Uncontrolled Diabetes: blood sugar labile -optimize sugar control -eventual diet optimization 6. Electrolyte imbalance -optimize lytes Thank you. Patient seen and examined in collaboration with Dr. Jerome Marie. Problems: Subjective 24 Hr Interval Summary Feels well. Pending dc today. No fevers, chills, sob, congested cough, cp, palpitations, bustillo, dizziness, n/v/d/dysuria. Exam/Review of Systems Vital Signs Vitals Vital Signs Date Time Temp Pulse Resp B/P Pulse Ox O2 Delivery O2 Flow Rate FiO2 05/22/17 12:25 78 05/22/17 11:07 98.1 17 136/99 96 05/22/17 08:32 Nasal Cannula 2.0 Intake and Output 05/21/17 05/21/17 05/22/17 15:00 23:00 07:00 Intake Total 800 ml 630 ml Output Total 1300 ml 800 ml Balance -500 ml -170 ml Exam Free Text/Dictation Constitutional: alert, no distress, oriented Psych: min anxiety Head: atraumatic, normocephalic, other (left head wound (shunt)covered, scant drainage) Eyes: nl lids, nl sclera ENMT: mucosa pink and moist, nl nasal mucosa & septum Neck: non-tender, no jvd, supple Respiratory: normal resp effort, no wheezing Cardiovascular: s1s2 Gastrointestinal: soft, non distended, non tender, umbilical hernia, no skin discoloration. No rebound or guarding Musculoskeletal: Right aka, stump clean. Moves extremities. No edema Neurological: nl mental status, delayed speech Lymphatics: No cervical or inguinal LNs Results Result Diagram: 05/22/17 0608 05/22/17 0608 JEB LIRIANO NP May 22, 2017 14:03
== END 2017-05-22 17:01 | DRG 871 ==
LOC: E/R 10:06 → ICU 14:03 → UNDOADMIN 05-03 12:49 → ICU 05-03 12:49 → TEL 05-13 17:20
PROVIDERS: ADMIT Internal Medicine; ATTEND Internal Medicine
PROC: 02HV33Z Insertion of Infusion Device into Superior Vena Cava, Percutaneous Approach (ICD-10-PCS; principal; 2017-05-08)
PROC: 30233N1 Transfusion of Nonautologous Red Blood Cells into Peripheral Vein, Percutaneous Approach (ICD-10-PCS; 2017-05-17)
PROC: 30233N1 Transfusion of Nonautologous Red Blood Cells into Peripheral Vein, Percutaneous Approach (ICD-10-PCS; 2017-05-21)
DX: A41.9 Sepsis, unspecified organism (principal); N17.0 Acute kidney failure with tubular necrosis; J96.00 Acute respiratory failure, unspecified whether with hypoxia or hypercapnia; R65.21 Severe sepsis with septic shock; E11.10 Type 2 diabetes mellitus with ketoacidosis without coma; K85.91 Acute pancreatitis with uninfected necrosis, unspecified; E46 Unspecified protein-calorie malnutrition; G92 Toxic encephalopathy; E87.1 Hypo-osmolality and hyponatremia; B37.49 Other urogenital candidiasis; I69.351 Hemiplegia and hemiparesis following cerebral infarction affecting right dominant side; K56.7 Ileus, unspecified; E11.22 Type 2 diabetes mellitus with diabetic chronic kidney disease; D69.6 Thrombocytopenia, unspecified; I12.9 Hypertensive chronic kidney disease with stage 1 through stage 4 chronic kidney disease, or unspecified chronic kidney disease; N18.9 Chronic kidney disease, unspecified; I69.320 Aphasia following cerebral infarction; I25.10 Atherosclerotic heart disease of native coronary artery without angina pectoris; D64.9 Anemia, unspecified; E78.5 Hyperlipidemia, unspecified; N28.89 Other specified disorders of kidney and ureter; F31.9 Bipolar disorder, unspecified; Z89.511 Acquired absence of right leg below knee; Z68.29 Body mass index [BMI] 29.0-29.9, adult; Z79.4 Long term (current) use of insulin
CPT/HCPCS: 36415; 36430; 36569; 36600; 71010; 74000; 74176; 74178; 76700; 76705; 76937; 80048; 80053; 80202; 81001; 81003; 82043; 82140; 82150; 82270; 82803; 82962; 83036; 83605; 83690; 83735; 84100; 84132; 84155; 84300; 84478; 84484; 85025; 85610; 85651; 85730; 86850; 86900; 86901; 86920; 87040; 87070; 87081; 87086; 92526; 92610; 93005; 93306; 93970; 94640; 94660; 94664; 96361; 96365; 96366; 96372; 96375; 96376; 97110; 97162; 97530; J1940; C9113; J0360; J0692; J1170; J1450; J1815; J2060; J2185; J2405; J3370; J3475; J7030; J7040; J7042; J7050; J7060; J7070; P9016; P9047; P9612; Q9967